=== PATIENT | male | born 1970 | race African-American/Black ===

== ENCOUNTER → 2016-07-05 | Day surgery (SDC) | payer MEDICARE ==
[~2016-07-05] MED LIST: AMLO2.5T PO; BYSTOLIC10 MG PO; CEPH500C PO; CYCL10TA2 PO; DOCU-27 PO; HYDR-2666 PO; HYDR-2679 PO; HYDR-2762 PO; HYDR-971 PO; IBUP-1060 PO; LIDOCAINE 1%/EPI 1:200,000 30 ML VIAL. INJ ONE; LIDOCAINE 1%/EPI 1:200,000 30 ML VIAL. ONE; LISI10TA2 PO; LISI1TAB3 PO; LISI2.5T PO; LORA0.5T96 PO; METF10002 PO; METF500T4 PO; OXYC10TA PO; OXYC30TA21 PO; PANT40TA5 PO; POLY17PO5 PO; Polyethylene Glycol 3350 PO; SENN-22 PO; SERT50TA PO; SIMV20TA3 PO; SULF1TAB24 PO; TIZA4TAB PO; TRAM50TA PO; TRAZ150T55 PO
[2016-07-05 10:28] VITALS: BP 129/67
--- NOTE | 2016-07-05 11:37 | PDOC ---
BRIEF OPERATIVE NOTE Pre-Op Diagnosis skin lesion excision of 1 cm skin lesion local ebl 5 kristyn well dc home. NYDIA CHONG MD Jul 05, 2016 11:37
--- NOTE | 2016-07-05 13:46 | OP ---
DATE OF SURGERY: 07/05/2016 PREOPERATIVE DIAGNOSIS: Right inguinal skin lesion. POSTOPERATIVE DIAGNOSIS: Right inguinal skin lesion. PROCEDURE: Excision of 1 cm skin lesion from his right inguinal region. SURGEON: Nydia Chong M.D. ANESTHESIA: Local. ESTIMATED BLOOD LOSS: 5 mL. IV FLUIDS: None. INDICATIONS: The patient is a 46-year-old male with very painful skin lesion in his right groin that he would like to have excised. DESCRIPTION OF PROCEDURE: After informed consent was obtained, the patient was taken to the minor operating room and placed in supine position. He was prepped and draped in usual sterile fashion. Skin was injected with local anesthetic. Elliptical incision was made around this 1 cm lesion with a scalpel, the lesion was sent to pathology for examination. The incision was then closed with interrupted 4-0 Ethibond sutures and then a sterile bandage was placed. He tolerated the procedure well. There were no complications. He was then discharged to home in stable condition. NYDIA CHONG MD DR: DOREEN/jody JOB#: [id number] / [id number] Dr. Kirby Parson
--- NOTE | 2016-07-08 15:31 | PATHOLOGY ---
PATHOLOGY REPORT * * * * * * * * FINAL DIAGNOSIS: Skin, right groin skin lesion excision: - Verruca vulgaris. COMMENT: There is no evidence of malignancy. (DENISEM:; d/t: 07/08/16) REPORT ELECTRONICALLY SIGNED BY: Drew Forrest M.D. DATE/TIME: 07/08/2016 15:31 * * * * * * * * GROSS PATHOLOGY: Received in formalin labeled "Nacho Kim Pierre., R groin skin lesion," is a 1.3 x 0.8 x 0.6 cm ellipse of skin displaying a well-circumscribed, raised and white-banda to rosales-brown lesion which measures 1.1 x 0.7 x 0.3 cm. The margins are inked black. The specimen is sectioned into five pieces and entirely submitted in cassettes A1 and A2, with the tips placed in cassette A2. (CAA; 07/05/2016) INITIAL CPT CODE(S): A; 77807 Professional services performed [place] [facility] [place] [address] Technical services performed by [facility] at [address] [place] [address]. SPECIMEN(S) RECEIVED: A.Right groin skin lesion CLINICAL HISTORY: Right groin skin lesion PATIENT: LUZ SANFORDSAVANNA Marina SR /AGE: 12 1970 (Age: 46) PATIENT #: [id number] ALT CASE #: SPECIMEN COLLECTION DATE: 07/05/2016 SPECIMEN RECEIVED DATE: 07/05/2016 [facility] - [address] [place] [address] - PHONE: [phone] * * * END OF REPORT * * *
== END | disposition home or self-care (01) ==
LOC: SURG 10:11
PROVIDERS: ATTEND Surgery
DX: L98.8 Other specified disorders of the skin and subcutaneous tissue (principal); B07.9 Viral wart, unspecified; E78.00 Pure hypercholesterolemia, unspecified; I10 Essential (primary) hypertension; K21.9 Gastro-esophageal reflux disease without esophagitis; F41.9 Anxiety disorder, unspecified; E11.9 Type 2 diabetes mellitus without complications; Z72.89 Other problems related to lifestyle

== ENCOUNTER → 2016-10-24 | Outpatient (CLI) | payer MEDICARE ==
[2016-07-05 10:28] VITALS: BP 129/67
[~2016-10-24] MED LIST changes: +DOCU-109 PO; -DOCU-27 PO; -HYDR-2666 PO; +HYDR-2758 PO; -LIDOCAINE 1%/EPI 1:200,000 30 ML VIAL. INJ ONE; -LIDOCAINE 1%/EPI 1:200,000 30 ML VIAL. ONE; +METF-620 PO; -METF10002 PO; +POLY17PO29 PO; -POLY17PO5 PO; +TRAZ150T49 PO; -TRAZ150T55 PO
--- NOTE | 2016-10-24 13:04 | RAD ---
Indication chronic shortness of breath. Anticipated coming surgery. Protocol study. No prior plain film imaging of the chest is available. Note is made of a CT examination of the chest April 12, 2016. There is mild cardiomegaly. There is no gross congestive heart failure. There is no focal infiltrate. Significant pleural fluid is not seen. No pneumothorax is seen. Bony structures appear grossly intact. IMPRESSION: No acute or focal process. Mild cardiomegaly
== END | disposition home or self-care (01) ==
LOC: RAD 12:36
PROVIDERS: ATTEND Internal Medicine
DX: J44.9 Chronic obstructive pulmonary disease, unspecified (principal)
CPT/HCPCS: 71020

== ENCOUNTER → 2016-12-17 | Outpatient (CLI) | payer MEDICARE ==
[2016-07-05 10:28] VITALS: BP 129/67
[~2016-12-17] MED LIST changes: +OXYMETAZOLINE 0.05% NASAL SPRAY 30ML BOTTLE. NS ONE; +ZOLPIDEM 5 MG TABLET. PO ONE
--- NOTE | 2016-12-18 19:48 | SLEEP ---
DATE OF STUDY: 12/17/2016 DATE OF STUDY: 12/17/2016 ATTENDING PHYSICIAN: Dr. Paddy Jean REFERRING PHYSICIAN: Dr. Tomas Kirby The patient is 46 years old who weighs 326 pounds with the BMI of 44. The patient's Holland score was 18, suggesting severe subjective hypersomnia. A split night study was performed at [facility]. During the night study, patient spent 428 minutes in bed and slept for 240 minutes with the low sleep efficiency of 56%. Sleep latency was 9 minutes with absent REM sleep. Overall, sleep architecture showed increased stage I and stage II sleep, normal slow wave and absent REM sleep. During the initial diagnostic portion of the study, the patient slept for 158 minutes. During this time there were no obstructive or central apneas. There were 30 mixed apneas and 79 hypopneas. The patient's apnea-hypopnea index was 42 per hour with the supine index of 42 per hour and REM sleep was not seen. Review of nocturnal oximetry study revealed a mean oxygen saturation of 94% with the lowest of 80%. 56% of the time, oxygen saturation remained between 80% and 89%. EKG monitoring revealed sinus tachycardia with frequent PVCs seen. The average heart rate was 110 beats per minute. PLMS were seen at index of 9 per hour and 2 per hour caused EEG arousals. The patient met the criteria for CPAP initiation. It was started at 5 cm of water; however, patient was unable to tolerate the lower pressure. As the result, it was increased to 9 cm of water and at final pressure of 12 cm water, patient slept for 55 minutes. The patient had supine sleep throughout, but no REM sleep was observed. Apnea-hypopnea index was reduced to 2 per hour and oxygen saturation remained above 91%. The patient used a large-sized full face mask. IMPRESSION: 1. Severe sleep apnea-hypopnea syndrome at an apnea-hypopnea index of 42 per hour. 2. Nocturnal hypoxia secondary to obstructive sleep apnea and suspected obesity hypoventilation syndrome, but resolved with continuous positive airway pressure. 3. Mild periodic limb movements in sleep without any significant electroencephalogram arousals. This does not need to be treated. RECOMMENDATIONS: 1. CPAP at 12 cm water completely eliminated patient's sleep apnea and should be used on a nightly basis. 2. Follow up in 4-6 weeks to assess compliance with CPAP and to document clinical improvement. 3. Weight loss is strongly advised. 4. Avoid VP RESEARCH depressants. 5. Cautioned regarding driving until symptoms of sleep apnea resolve with the use of CPAP. 6. The patient had reduced sleep efficiency, probably related to sleep apnea. If patient's insomnia persists despite effective use of CPAP, then it should be further evaluated. LORI ROBERTS MD DR: FRANDY/jody JOB#: [id number] / [id number] PADDY Lau MD, GEORGE MD
== END | disposition home or self-care (01) ==
LOC: SLPLAB 18:44
PROVIDERS: ATTEND Internal Medicine Pulmonary Disease
DX: G47.33 Obstructive sleep apnea (adult) (pediatric) (principal)
CPT/HCPCS: 95810

== ENCOUNTER → 2017-02-25 | Day surgery (SDC) | payer MEDICARE ==
[~2017-02-25] MED LIST changes: -AMLO2.5T PO; -BYSTOLIC10 MG PO; -CEPH500C PO; -CYCL10TA2 PO; -DOCU-109 PO; -HYDR-2679 PO; -HYDR-2758 PO; -HYDR-2762 PO; -HYDR-971 PO; -IBUP-1060 PO; +LIDOCAINE 2% PF Vial for OR 5 ML VIAL.; -LISI10TA2 PO; -LISI1TAB3 PO; -LISI2.5T PO; -LORA0.5T96 PO; -METF-620 PO; -METF500T4 PO; -OXYC10TA PO; -OXYC30TA21 PO; -OXYMETAZOLINE 0.05% NASAL SPRAY 30ML BOTTLE. NS ONE; -PANT40TA5 PO; -POLY17PO29 PO; +PROPOFOL 40 ML IV; -Polyethylene Glycol 3350 PO; -SENN-22 PO; -SERT50TA PO; -SIMV20TA3 PO; -SULF1TAB24 PO; -TIZA4TAB PO; -TRAM50TA PO; -TRAZ150T49 PO; -ZOLPIDEM 5 MG TABLET. PO ONE
[2017-02-25] MEDS: IV RINGERS,LACTATED 1000ML 1,000 ML IV (09:39)
== END | disposition home or self-care (01) ==
LOC: ENDOS 09:07
DX: K26.9 Duodenal ulcer, unspecified as acute or chronic, without hemorrhage or perforation (principal); K21.0 Gastro-esophageal reflux disease with esophagitis; Z87.11 Personal history of peptic ulcer disease; E78.00 Pure hypercholesterolemia, unspecified; I10 Essential (primary) hypertension; J44.9 Chronic obstructive pulmonary disease, unspecified; F17.200 Nicotine dependence, unspecified, uncomplicated; E11.9 Type 2 diabetes mellitus without complications; F41.9 Anxiety disorder, unspecified; Z72.89 Other problems related to lifestyle; Z87.39 Personal history of other diseases of the musculoskeletal system and connective tissue; Z86.39 Personal history of other endocrine, nutritional and metabolic disease; Z98.890 Other specified postprocedural states
CPT/HCPCS: 43239; 88305; 88342; J2704

== ENCOUNTER → 2017-10-29 | Outpatient (CLI) | payer MEDICARE, OTHER ==
[2017-10-29] MEDS: ZOLPIDEM 5 MG TABLET. PO (22:10)
[2017-10-29] MEDS: OXYMETAZOLINE 0.05% NASAL SPRAY 30ML BOTTLE. NS (23:30)
== END | disposition home or self-care (01) ==
LOC: SLPLAB 18:40
DX: G47.33 Obstructive sleep apnea (adult) (pediatric) (principal); G47.34 Idiopathic sleep related nonobstructive alveolar hypoventilation; M17.0 Bilateral primary osteoarthritis of knee; I11.0 Hypertensive heart disease with heart failure; I50.9 Heart failure, unspecified; E11.9 Type 2 diabetes mellitus without complications; E78.2 Mixed hyperlipidemia; E78.00 Pure hypercholesterolemia, unspecified; J44.1 Chronic obstructive pulmonary disease with (acute) exacerbation; K21.9 Gastro-esophageal reflux disease without esophagitis; I25.10 Atherosclerotic heart disease of native coronary artery without angina pectoris; Z87.11 Personal history of peptic ulcer disease; Z86.39 Personal history of other endocrine, nutritional and metabolic disease
CPT/HCPCS: 95810

== ENCOUNTER → 2018-01-14 | Outpatient (CLI) | payer MEDICARE ==
[2017-04-04 12:00] VITALS: BP 157/85
[~2018-01-14] MED LIST changes: +AMLO2.5T3 PO; +ASPI-612 PO; +BUPR300T3 PO; +BYSTOLIC10 MG PO; +CARV12.52 PO; +CARV6.252 PO; +CEPH500C PO; +CYCL10TA2 PO; +DEXL60CA2 PO; +DIPH25CA58 PO; +DOCU-109 PO; +FAMO20TA5 PO; +FURO80TA3 PO; +HYDR-2679 PO; +HYDR-2758 PO; +HYDR-2762 PO; +HYDR-971 PO; +IBUP-1060 PO; +INSU100I13 SQ; +INSU100I17 SQ; +INSU100I27 SQ; +INSU100V SQ; +INSU300I SQ; +IPRA3AMP29 NEB; +LEVO500T59 PO; -LIDOCAINE 2% PF Vial for OR 5 ML VIAL.; +LINA145C PO; +LISI-334 PO; +LISI10TA2 PO; +LISI1TAB3 PO; +LISI2.5T PO; +LORA0.5T96 PO; +METF1000 PO; +METF10007 PO; +METF500T16 PO; +MONT10TA6 PO; +Nicotine 21MG TD; +OXYC10TA PO; +OXYC30TA21 PO; +PANT40TA5 PO; +POLY17PO29 PO; +POLY255P PO; +PRAS10TA9 PO; +PRAV20TA2 PO; +PRAV40TA PO; +PRED20TA PO; -PROPOFOL 40 ML IV; +Polyethylene Glycol 3350 PO; +SENN-22 PO; +SERT50TA PO; +SIMV20TA3 PO; +SULF1TAB24 PO; +TIZA4TAB PO; +TRAM50TA PO; +TRAZ150T49 PO
--- NOTE | 2018-01-14 11:26 | CARD ---
MR#: [id number] Date of Study: 01/14/2018 Ordering Physician: TISH VALLADARES, Referring Physician: TISH VALLADARES, Tech: Rae Hernandez APPROVED REPORT EXAM: Two-dimensional and M-mode echocardiogram with Doppler and color Doppler. Other Information Quality : Good INDICATION Cardiomyopathy RISK FACTORS Hypertension Hyperlipidemia Diabetes Smoking 2D DIMENSIONS RVDd3.2 (2.9-3.5cm)Left Atrium(2D)6.0 (1.6-4.0cm) IVSd1.2 (0.7-1.1cm)Aortic Root(2D)3.3 (2.0-3.7cm) LVDd6.7 (3.9-5.9cm)LVOT Diameter2.7 (1.8-2.4cm) PWd1.2 (0.7-1.1cm)LVDs5.7 (2.5-4.0cm) FS (%) 15.1 %SV72.7 ml LVEF(%)31.1 (>50%) Aortic Valve AoV Peak Florentino.126.5cm/sAoV VTI21.3cm AO Peak GR.6.4mmHgLVOT Peak Florentino.77.7cm/s LVOT VTI 13.94cmAO Mean GR.4mmHg MIR (VMAX)2.43fr9HJC (VTI)3.85cm2 Tricuspid Valve TR P. [id number]/sTR Peak Gr.24mmHg LEFT VENTRICLE The Left Ventricle is moderately dilated. There is borderline concentric left ventricular hypertrophy . The systolic function is severely impaired. The Ejection Fraction is 25-30%. There is global hypoki nesis of the left ventricle. The anterior wall, septum are severely hypokinetic. The apex appears hyp erkinetic, but this may be due to off axis imaging. Tissue Doppler imaging reveals moderate left vent ricular diastolic dysfunction. RIGHT VENTRICLE The right ventricle is borderline dilated. There is normal right ventricular wall thickness. The righ t ventricular systolic function is normal. ATRIA The left atrium size is normal. The right atrium size is normal. The interatrial septum is intact wit h no evidence for an atrial septal defect or patent foramen ovale as noted on 2-D or Doppler imaging. AORTIC VALVE Not well visualized. Doppler and Color Flow revealed trace aortic regurgitation. There is no signific ant aortic valvular stenosis. MITRAL VALVE The mitral valve is normal in structure and function. There is no mitral valve stenosis. Doppler and Color-flow revealed trace mitral regurgitation. TRICUSPID VALVE The tricuspid valve is normal in structure and function. Doppler and Color Flow revealed trace tricus pid regurgitation. There is no tricuspid valve stenosis. PULMONIC VALVE The pulmonic valve is not well visualized. Doppler and Color Flow revealed trace pulmonic valvular re gurgitation. There is no pulmonic valvular stenosis. GREAT VESSELS The aortic root is normal in size. The IVC is dilated. PERICARDIAL EFFUSION There is no evidence of significant pericardial effusion. Critical Notification Critical Value: No <Conclusion> The systolic function is severely impaired. The Ejection Fraction is 25-30%. There is global hypokinesis of the left ventricle. The anterior wall, septum are severely hypokineti c. The apex appears hyperkinetic, but this may be due to off axis imaging. Tissue Doppler imaging reveals moderate left ventricular diastolic dysfunction. Signed by : Tish Valladares, Electronically Approved : 01/14/2018 11:25:26
== END | disposition home or self-care (01) ==
LOC: ECHO 09:46
PROVIDERS: ATTEND Internal Medicine Cardiovascular Disease
DX: I11.0 Hypertensive heart disease with heart failure (principal); I25.5 Ischemic cardiomyopathy; E78.5 Hyperlipidemia, unspecified; E11.9 Type 2 diabetes mellitus without complications; Z87.891 Personal history of nicotine dependence
CPT/HCPCS: 93306

== ENCOUNTER 2018-05-18 21:05 | Emergency (ER) | payer MEDICARE ==
[2018-01-19 08:37] VITALS: BP 125/62
[~2018-05-18 21:05] MED LIST changes: -AMLO2.5T3 PO; +AMLO2.5T5 PO; +CARV12.511 PO; -CARV12.52 PO; +CARV6.2511 PO; -CARV6.252 PO; -HYDR-2758 PO; +HYDR-2761 PO; -HYDR-2762 PO; +HYDR-2765 PO; +HYDR-3164 PO; -HYDR-971 PO; -LINA145C PO; +LINZESS145 MCG PO; -POLY255P PO; +POLY255P11 PO
[2018-05-18] MEDS ORDERED: IBUPROFEN 600 MG TABLET. PO ONE ×2 (22:02→22:24)
[2018-05-18] MEDS ORDERED: DOXYCYCLINE HYCLATE 100 MG TABLET PO ONE (22:02)
[2018-05-18] MEDS ORDERED: DOXYCYCLINE HYCLATE 100 MG TABLET ONE (22:24)
== END 2018-05-18 22:37 | disposition home or self-care (01) ==
LOC: MERGE 21:05 → ER 21:05 → UNMERGE 21:05 → ER 22:37
DX: L03.115 Cellulitis of right lower limb (principal); Z72.0 Tobacco use
CPT/HCPCS: 99283

== ENCOUNTER 2018-05-31 18:16 | Inpatient (IN) | payer MEDICARE ==
[~2018-05-31] VITALS: Ht 182.9 cm; Wt 206.1 kg
--- NOTE | 2018-05-31 20:05 | PHYS DOC ---
Past Medical History Past Medical History: COPD, Diabetes-Type II, High Cholesterol, Hypertension Additional Past Medical Histor: Rheumotoid Arthritis Past Surgical History: Appendectomy, Other Additional Past Surgical Histo: knee surgery x5, incision and drainage of abcess Alcohol Use: Occasionally Drug Use: None Adult General Chief Complaint Chief Complaint: CELLULITIS HPI HPI Patient is a 48 year old iddm htn copd anemia ibs 5 weeks ago kicked a table with his mckeon on his right leg. came in got augmentin gave him a rash, then took levaquin for ten days then ran out of that and then got worse again tried doxycyline did not help really now on bactrim for four days and feels like making no progress. redness on both legs symptoms moderate more swelling on the right Review of Systems Review of Systems Constitutional: Denies fever or chills [] Eyes: Denies change in visual acuity, redness, or eye pain [] HENT: Denies nasal congestion or sore throat [] Respiratory: Denies cough or shortness of breath [] Cardiovascular: No additional information not addressed in HPI [] GI: Denies abdominal pain, nausea, vomiting, bloody stools or diarrhea [] : Denies dysuria or hematuria [] Endocrine: Denies polyuria or polydipsia [] All other systems were reviewed and found to be within normal limits, except as documented in this note. Current Medications Current Medications Current Medications Medications (Trade) Dose Ordered Sig/Linden Start Time Stop Time Status Last Admin Dose Admin Albuterol/ Ipratropium (Duoneb) 3 ml 1X ONCE 05/31/18 21:15 05/31/18 21:17 DC 05/31/18 21:15 3 ML Fentanyl Citrate (Fentanyl 2ml Vial) 50 mcg 1X ONCE 05/31/18 20:45 05/31/18 20:46 DC 05/31/18 21:04 50 MCG Furosemide (Lasix) 60 mg 1X ONCE 05/31/18 20:45 05/31/18 20:46 DC 05/31/18 21:06 60 MG Vancomycin HCl (Vanco Per Pharmacy) 1 each PRN DAILY PRN 05/31/18 20:45 UNV Vancomycin HCl 2 gm/Sodium Chloride 500 ml @ 250 mls/hr 1X ONCE 05/31/18 21:00 05/31/18 22:59 DC 05/31/18 20:58 250 MLS/HR Allergies Allergies Allergies Coded Allergies Type Severity Reaction Last Updated Verified amoxicillin Allergy Unknown 05/31/18 Yes clavulanic acid Allergy Unknown 05/31/18 Yes Physical Exam Physical Exam Constitutional: Well developed, well nourished, no acute distress, non-toxic appearance. [] HENT: Normocephalic, atraumatic, bilateral external ears normal, oropharynx moist, no oral exudates, nose normal. [] Eyes: PERRLA, EOMI, conjunctiva normal, no discharge. [] Neck: Normal range of motion, no tenderness, supple, no stridor. [] Cardiovascular:Heart rate regular rhythm, no murmur DIFFICULT EXAM DUE TO HABITUS Lungs & Thorax: FAINT CRACKLES B/L LUNG BASES Abdomen: Bowel sounds normal, soft, no tenderness, no masses, no pulsatile masses. [] Skin: Warm, dry, no erythema, no rash. [] Back: No tenderness, no CVA tenderness. [] Extremities: erythema noted to lower extremities, and swelling B/L WITH WOODY EDEMA MOSTLY SYMMETRIC Neurologic: Alert and oriented X 3, normal motor function, normal sensory function, no focal deficits noted. [] Psychologic: Affect normal, judgement normal, mood normal. [] Current Patient Data Vital Signs Vital Signs Date Time Temp Pulse Resp B/P (MAP) Pulse Ox O2 Delivery O2 Flow Rate FiO2 05/31/18 21:30 100 20 145/74 (97) 92 Room Air 05/31/18 20:30 91.0 05/31/18 19:20 97.9 97.9 Lab Values Laboratory Tests Test 05/31/18 20:40 White Blood Count 9.2 x10^3/uL (4.0-11.0) Red Blood Count 4.82 x10^6/uL (4.30-5.70) Hemoglobin 11.9 g/dL (13.0-17.5) L Hematocrit 37.5 % (39.0-53.0) L Mean Corpuscular Volume 78 fL (79-100) L Mean Corpuscular Hemoglobin 25 pg (25-35) Mean Corpuscular Hemoglobin Concent 32 g/dL (31-37) Red Cell Distribution Width 19.6 % (11.5-14.5) H Platelet Count 233 x10^3/uL (140-400) Neutrophils (%) (Auto) 71 % (31-73) Lymphocytes (%) (Auto) 15 % (24-48) L Monocytes (%) (Auto) 9 % (0-9) Eosinophils (%) (Auto) 5 % (0-3) H Basophils (%) (Auto) 1 % (0-3) Neutrophils # (Auto) 6.5 x10^3uL (1.8-7.7) Lymphocytes # (Auto) 1.3 x10^3/uL (1.0-4.8) Monocytes # (Auto) 0.8 x10^3/uL (0.0-1.1) Eosinophils # (Auto) 0.4 x10^3/uL (0.0-0.7) Basophils # (Auto) 0.1 x10^3/uL (0.0-0.2) Prothrombin Time 14.0 SEC (11.7-14.0) Prothrombin Time INR 1.1 (0.8-1.1) Sodium Level 134 mmol/L (136-145) L Potassium Level 4.5 mmol/L (3.5-5.1) Chloride Level 99 mmol/L (98-107) Carbon Dioxide Level 25 mmol/L (21-32) Anion Gap 10 (6-14) Blood Urea Nitrogen 16 mg/dL (8-26) Creatinine 0.8 mg/dL (0.7-1.3) Estimated GFR (Cockcroft-Gault) 125.9 BUN/Creatinine Ratio 20 (6-20) Glucose Level 366 mg/dL (70-99) H Lactic Acid Level 1.9 mmol/L (0.4-2.0) Calcium Level 9.0 mg/dL (8.5-10.1) Total Bilirubin 0.6 mg/dL (0.2-1.0) Aspartate Amino Transferase (AST) 28 U/L (15-37) Alanine Aminotransferase (ALT) 22 U/L (16-63) Alkaline Phosphatase 155 U/L (46-116) H Troponin I Quantitative < 0.017 ng/mL (0.000-0.055) AO-Xfj-H-Type Natriuretic Peptide 588 pg/mL (0-124) H Total Protein 8.9 g/dL (6.4-8.2) H Albumin 3.2 g/dL (3.4-5.0) L Albumin/Globulin Ratio 0.6 (1.0-1.7) L Laboratory Tests 05/31/18 20:40 Laboratory Tests 05/31/18 20:40 EKG EKG [] Interpretation Time: Sinus tachycardia with rate of 102. No ST segment changes Radiology/Procedures Radiology/Procedures [] Impressions: CXR MILD CONGESTION MY READ. Course & Med Decision Making Course & Med Decision Making Pertinent Labs and Imaging studies reviewed. (See chart for details) []48 yo m cellulitis failed outpt thearpy. also some evidence of fulid overload clinically lower ext edema and mild dyspnea with pulm edema seen on cxr. vanco ordered, lasix. d/w nura asks for admit to [facility], with consult to id. Saenz Disclaimer Dragon Disclaimer This electronic medical record was generated, in whole or in part, using a voice recognition dictation system. Departure Departure Impression: Primary Impression: Cellulitis Additional Impression: Lower extremity edema Disposition: ADMITTED INPATIENT Admitting Physician: Kirby Jean Condition: STABLE Referrals: KIRBY JEAN MD (PCP) Problem Qualifiers VIVIENNE MARKS MD May 31, 2018 20:05
[2018-05-31] MEDS ORDERED: FUROSEMIDE 100 MG/10 ML VIAL. IVP ONE (20:45)
[2018-05-31] MEDS ORDERED: fentaNYL PF VIAL 100 MCG/2 ML VIAL IV ONE (20:45)
[2018-05-31 20:58] LABS: BASO # 0.1 x10^3/uL (0.0-0.2); BASO % 1 % (0-3); EOS # 0.4 x10^3/uL (0.0-0.7); EOS % 5 % (0-3); HEMATOCRIT 37.5 % (39.0-53.0); HEMOGLOBIN 11.9 g/dL (13.0-17.5); LYMPH # 1.3 x10^3/uL (1.0-4.8); LYMPH % 15 % (24-48); MEAN CORPUSCULAR HEMOGLOBIN 25 pg (25-35); MEAN CORPUSCULAR HGB CONC 32 g/dL (31-37); MEAN CORPUSCULAR VOLUME 78 fL (79-100); MONO # 0.8 x10^3/uL (0.0-1.1); MONO % 9 % (0-9); NEUT # 6.5 x10^3uL (1.8-7.7); NEUT % 71 % (31-73); PLATELET COUNT 233 x10^3/uL (140-400); RED BLOOD COUNT 4.82 x10^6/uL (4.30-5.70); RED CELL DISTRIBUTION WIDTH 19.6 % (11.5-14.5); WHITE BLOOD COUNT 9.2 x10^3/uL (4.0-11.0)
[2018-05-31] MEDS ORDERED: VANCOMYCIN 2 GM in IV NORMAL SALINE 500ML BAG 500 ML IV ONE (21:00)
[2018-05-31 21:08] LABS: CREATININE 0.8 mg/dL (0.7-1.3); GFR 125.9; POTASSIUM 4.5 mmol/L (3.5-5.1)
[2018-05-31 21:15] LABS: ALBUMIN 3.2 g/dL (3.4-5.0); ALBUMIN/GLOBULIN RATIO 0.6 (1.0-1.7); TOTAL BILIRUBIN 0.6 mg/dL (0.2-1.0); TOTAL PROTEIN 8.9 g/dL (6.4-8.2)
[2018-05-31] MEDS ORDERED: IPRATRPIUM/ALBUTEROL 0.5/2.5MG 3 ML NEBU. NEB ONE (21:15)
--- NOTE | 2018-05-31 22:04 | RAD ---
AP chest 05/31/2018 CLINICAL INDICATION: Shortness of breath. COMPARISON: Chest 01/15/2018 FINDINGS: Moderate generalized large amount of the cardiac silhouette with pulmonary venous congestion and diffuse interstitial opacities with mild bilateral airspace opacities. No definite pleural effusion, though limited due to body habitus and underpenetration. No definite pneumothorax, though also limited. IMPRESSION: Findings most suggestive of CHF or volume overload with cardiomegaly and pulmonary edema. Electronically signed by: Luis Caicedo MD (05/31/2018 10:01 PM) [facility]
[2018-05-31] MEDS ORDERED: INSU100I13 SQ (22:54)
[2018-05-31 23:00] VITALS: BP 142/89
[2018-05-31] MEDS ORDERED: GLYC10.7 IH (23:05)
[2018-05-31] MEDS ORDERED: INSULIN LISPRO 300 UNITS/3 ML INSULN.PEN. SQ ONE (23:30)
[2018-05-31] MEDS ORDERED: DEXTROSE 50% 25 GM / 50ML DISP.SYRIN. IV PRN (23:30)
[2018-05-31] MEDS ORDERED: INSULIN GLARGINE 300 UNITS/3 ML INSULN.PEN. SQ SCH (23:30)
[2018-05-31] MEDS: NICOTINE 14MG PATCH. TD PRN (23:42)
[2018-05-31] MEDS: HYDROcodone/APAP 5/325MG 1 TAB TABLET PO PRN (23:42)
[2018-06-01 00:38] LABS: BILIRUBIN,URINE NEGATIVE (NEG); CLARITY,URINE CLEAR; COLOR,URINE YELLOW; NITRITE,URINE NEGATIVE (NEG); PROTEIN,URINE NEGATIVE (NEG-TRACE)
[2018-06-01 00:42] LABS: BACTERIA,URINE 0 /HPF (0-FEW); RBC,URINE 0 /HPF (0-2); SQUAMOUS EPITHELIAL CELL,UR FEW /LPF; WBC,URINE 0 /HPF (0-4)
[2018-06-01 03:00] VITALS: BP 116/50
[2018-06-01] MEDS ORDERED: VANCOMYCIN 2 GM in IV NORMAL SALINE 500ML BAG 500 ML IV ONE (05:00)
[2018-06-01 07:00] VITALS: BP 138/60
--- NOTE | 2018-06-01 07:14 | EKG ---
[facility] [address] [place] [address] Test Date: 2018-05-31 Test Time: 20:56:39 Pat Name: GILBERTO BREWER Department: Room: 526 1 Gender: M [employer]ant Systems: : 1970 Requested By: VIVIENNE MARKS Order Number: [id number] Reading MD: Segundo Jimenez Measurements Intervals [place] Rate: 102 P: -102 NC: 116 QRS: -31 QRSD: 108 T: 64 QT: 364 QTc: 479 Interpretive Statements SINUS RHYTHM LEFT ATRIAL ABNORMALITY ABNORMAL LEFT AXIS DEVIATION LEFT ANTERIOR FASCICULAR BLOCK T ABNORMALITY IN HIGH LATERAL LEADS ABNORMAL ECG Electronically Signed On 06-09-2018 10:43:05 MANAGER DENTAL by Segundo Jimenez
[2018-06-01] MEDS: diphenhydrAMINE HCL 25 MG CAPSULE PO PRN ×2 (07:19→17:37)
[2018-06-01] MEDS: HYDROcodone/APAP 5/325MG 1 TAB TABLET PO PRN (07:19)
--- NOTE | 2018-06-01 08:00 | NUR ---
When questioned, patient relates that pain is better when he is sitting on side of bed with legs down.
[2018-06-01] MEDS: INSULIN LISPRO 300 UNITS/3 ML INSULN.PEN. SQ SCH ×5 (08:45→17:48)
[2018-06-01] MEDS ORDERED: NON FORMULARY ITEM (Linaclotide (Linzess) 145 MCG) PO SCH (09:30)
--- NOTE | 2018-06-01 09:56 | PDOC ---
Infectious Disease Note Vital Sign Vital Signs Vital Signs Date Time Temp Pulse Resp B/P (MAP) Pulse Ox O2 Delivery O2 Flow Rate FiO2 06/01/18 07:19 18 Room Air 06/01/18 07:00 97.8 91 138/60 (86) 97 2.0 97.8 Labs Lab Laboratory Tests Test 05/31/18 20:40 05/31/18 23:03 06/01/18 00:25 06/01/18 07:54 White Blood Count 9.2 x10^3/uL (4.0-11.0) Red Blood Count 4.82 x10^6/uL (4.30-5.70) Hemoglobin 11.9 g/dL (13.0-17.5) Hematocrit 37.5 % (39.0-53.0) Mean Corpuscular Volume 78 fL (79-100) Mean Corpuscular Hemoglobin 25 pg (25-35) Mean Corpuscular Hemoglobin Concent 32 g/dL (31-37) Red Cell Distribution Width 19.6 % (11.5-14.5) Platelet Count 233 x10^3/uL (140-400) Neutrophils (%) (Auto) 71 % (31-73) Lymphocytes (%) (Auto) 15 % (24-48) Monocytes (%) (Auto) 9 % (0-9) Eosinophils (%) (Auto) 5 % (0-3) Basophils (%) (Auto) 1 % (0-3) Neutrophils # (Auto) 6.5 x10^3uL (1.8-7.7) Lymphocytes # (Auto) 1.3 x10^3/uL (1.0-4.8) Monocytes # (Auto) 0.8 x10^3/uL (0.0-1.1) Eosinophils # (Auto) 0.4 x10^3/uL (0.0-0.7) Basophils # (Auto) 0.1 x10^3/uL (0.0-0.2) Prothrombin Time 14.0 SEC (11.7-14.0) Prothromb Time International Ratio 1.1 (0.8-1.1) Sodium Level 134 mmol/L (136-145) Potassium Level 4.5 mmol/L (3.5-5.1) Chloride Level 99 mmol/L (98-107) Carbon Dioxide Level 25 mmol/L (21-32) Anion Gap 10 (6-14) Blood Urea Nitrogen 16 mg/dL (8-26) Creatinine 0.8 mg/dL (0.7-1.3) Estimated GFR (Cockcroft-Gault) 125.9 BUN/Creatinine Ratio 20 (6-20) Glucose Level 366 mg/dL (70-99) Lactic Acid Level 1.9 mmol/L (0.4-2.0) Calcium Level 9.0 mg/dL (8.5-10.1) Total Bilirubin 0.6 mg/dL (0.2-1.0) Aspartate Amino Transf (AST/SGOT) 28 U/L (15-37) Alanine Aminotransferase (ALT/SGPT) 22 U/L (16-63) Alkaline Phosphatase 155 U/L (46-116) Troponin I Quantitative < 0.017 ng/mL (0.000-0.055) EW-Ecb-N-Type Natriuretic Peptide 588 pg/mL (0-124) Total Protein 8.9 g/dL (6.4-8.2) Albumin 3.2 g/dL (3.4-5.0) Albumin/Globulin Ratio 0.6 (1.0-1.7) Glucose (Fingerstick) 353 mg/dL (70-99) 336 mg/dL (70-99) Urine Collection Type Unknown Urine Color Yellow Urine Clarity Clear Urine pH 6.0 Urine Specific [place] 1.010 Urine Protein Negative mg/dL (NEG-TRACE) Urine Glucose (UA) 500 mg/dL (NEG) Urine Ketones (Stick) Negative mg/dL (NEG) Urine Blood Negative (NEG) Urine Nitrite Negative (NEG) Urine Bilirubin Negative (NEG) Urine Urobilinogen Dipstick 1.0 mg/dL (0.2 mg/dL) Urine Leukocyte Esterase Negative (NEG) Urine RBC 0 /HPF (0-2) Urine WBC 0 /HPF (0-4) Urine Squamous Epithelial Cells Few /LPF Urine Bacteria 0 /HPF (0-FEW) Urine Mucus Slight /LPF Objective Assessment Rt leg injury with cellulitis Left leg swelling and pain rule out DVT Morbid obesity DM HTN COPD Plan Plan of Care vanc leg elevation ultrasound to rule out DVT CUCO TRENT MD Jun 01, 2018 09:56
--- NOTE | 2018-06-01 10:50 | PDOC ---
Provider Note Provider Note Patient seen. History and Physical dictated. See dictation#[id number] PADDY LINCOLN MD Jun 01, 2018 10:50
[2018-06-01 11:00] VITALS: BP 140/80
[2018-06-01] MEDS ORDERED: PANTOPRAZOLE 40 MG TABLET.DR. PO SCH (11:00)
[2018-06-01] MEDS: FUROSEMIDE 80 MG TABLET. PO SCH (11:04)
[2018-06-01] MEDS: ASPIRIN ENTERIC COATED 81 MG TABLET.DR. PO SCH (11:04)
[2018-06-01] MEDS: buPROPion XL 150 MG TAB.ER.24H. PO SCH (11:05)
[2018-06-01] MEDS: PANTOPRAZOLE 40 MG TABLET.DR. PO SCH (11:05)
[2018-06-01] MEDS: NICOTINE 14MG PATCH. TD PRN (11:10)
[2018-06-01] MEDS: LISINOPRIL 20 MG TABLET PO SCH (11:11)
[2018-06-01] MEDS: CARVEDILOL 6.25 MG TABLET. PO SCH ×2 (11:12→17:36)
--- NOTE | 2018-06-01 11:13 | HP ---
ADMIT DATE: 05/31/2018 ADMITTING PHYSICIAN: Paddy Lincoln MD HISTORY OF PRESENT ILLNESS: This 48-year-old male who has been treated in the office recently on several occasions for cellulitis of the right lower extremity with chronic edema of both lower extremities was initially treated with Augmentin that caused rash and subsequently he took Levaquin for 10 days and then he ran out of it and then he got worse again and then started doxycycline that did not help and now is on Bactrim-DS for 4 days and felt that he was not improving, so he came to the Emergency Room. His blood sugars are also extremely high here and he admits that he did not take any insulin for 4 days because he could not afford it. REVIEW OF SYSTEMS: Because of the worsening cellulitis of the lower extremity and edema of the lower extremities, the patient has been admitted for further evaluation and management. The patient complains of bilateral lower extremity pain. He denies any dyspnea, chest pains, palpitations, dizziness, fever or chills. Denies any diarrhea. Other systems reviewed and are negative. The patient denies any vomiting. He has a history of chronic constipation. PAST MEDICAL HISTORY: The patient was last admitted here on 01/15/2018 because of pneumonia. The patient has a history of COPD, morbid obesity, obstructive sleep apnea, hypertension, hyperlipidemia, history of acute eosinophilic pneumonia. The patient also has heart failure, both diastolic and systolic, with ejection fraction of 15-20%, diabetes mellitus type 2, not controlled with history of steroid-induced hyperglycemia as well as noncompliance and insulin-dependent. Hypertension. Primary osteoarthritis of both knees, slow transit constipation, right lower lung pulmonary nodule, gastroesophageal reflux disease with esophagitis. Hyperlipidemia, history of noncompliance, anemia of chronic disease, 2-vessel coronary artery disease, status post drug-eluting stent of the right coronary artery on 04/03/2017. The patient needs CPAP at 12 cm of water pressure, but does not have a history of compliance with it. He also has a history of mixed hyperlipidemia. PAST SURGICAL HISTORY: The patient has had arthroscopic knee surgery of the right knee, cyst removed from the right groin. The patient also has had appendectomy. 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 No history of alcoholism. FAMILY HISTORY: Reviewed and noncontributory. ALLERGIES: THE PATIENT IS ALLERGIC TO AUGMENTIN. MEDICATIONS: I have reviewed and reconciled the medications. The patient was not taking insulin for 4 days prior to admission. PHYSICAL EXAMINATION: GENERAL: The patient is a middle-aged male who is alert, oriented x 3, morbidly obese, and not in acute distress. VITAL SIGNS: Temperature 97.9, pulse 105 per minute, respirations 20 per minute, blood pressure was 178/76 on admission, now it is 138/60 mmHg. EYES: Pupils reacting to light. Conjunctivae pale pink. Sclerae white. HENT: Unremarkable. NECK: Supple. JVP normal. No thyromegaly. Trachea midline. LUNGS: Decreased breath sounds at bases. CARDIOVASCULAR: S1, S2 regular. ABDOMEN: Soft, nontender, bowel sounds present. EXTREMITIES: Edema 3+ bilaterally with redness of both lower extremities, but worse on the right side. The patient also has some tenderness and some nodular swelling on the right thigh posteriorly. The patient also has some left calf tenderness. CENTRAL NERVOUS SYSTEM: Alert and oriented. No acute changes. LABORATORY FINDINGS: WBC count 9.2, hemoglobin 11.9, glucose 353 and 336. Lactic acid 1.9. BNP 588. Cardiac enzymes normal. Sodium 134, potassium 4.5, albumin 3.2. INR 1.1. Urinalysis negative. IMAGING FINDINGS: Chest x-ray findings most suggestive of CHF or volume overload with cardiomegaly and pulmonary edema. IMPRESSION: 1. Cellulitis of both lower extremities, worse on the right side. 2. Chronic edema of both lower extremities. 3. Possible deep venous thrombosis of both lower extremities. 4. 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 5. Morbid obesity. 6. Obstructive sleep apnea, CPAP noncompliant. 7. Diabetes mellitus type 2, insulin dependent, noncompliant. 8. Chronic obstructive pulmonary disease. 9. Slow transit constipation. 10. Osteoarthritis of both knees. 11. History of right lower lung nodule. 12. Gastroesophageal reflux disease with esophagitis. 13. Mixed hyperlipidemia. 14. Noncompliance. 15. Anemia of chronic disease. 16. Coronary artery disease with 2-vessel coronary artery disease, status post drug-eluting stent of the right coronary artery on 04/03/2017. PLAN: I will obtain venous Doppler of both lower extremities, consulted Dr. Rayray Torres for Infectious Disease evaluation and management. I also discussed the case with him. He has been started on IV vancomycin. I will also consult Dr. Jimenez for Cardiology evaluation and management. For details, please refer to the orders. Prognosis of this patient is poor due to his multiple medical problems. PADDY LINCOLN MD DR: DEJAN/jody JOB#: [id number] / [id number]
[2018-06-01] MEDS: INSULIN GLARGINE 300 UNITS/3 ML INSULN.PEN. SQ SCH ×2 (11:57→21:06)
--- NOTE | 2018-06-01 12:04 | RAD ---
Examination: Bilateral Lower Extremity Venous Doppler Ultrasound History: Bilateral lower extremity swelling Comparison: None Procedure: Bundy scale, color flow 2D and spectal waveform analysis images are obtained with and without compression in the area of the common femoral vein, superficial femoral vein - femoral vein junction, main femoral vein (superficial femoral vein) and popliteal vein. Veins of the proximal calf are also imaged. Findings: There is normal duplex flow, color flow and compressibility of all visualized vein segments. No evidence of deep venous thrombus is present. Examination limited due to patient body habitus. Impression: No evidence of DVT in the visualized bilateral lower extremity venous system. Electronically signed by: Mack Wild MD (06/01/2018 12:02 PM) [email or web address]
--- NOTE | 2018-06-01 12:10 | NUR ---
Encouraging patient to drink different fluids (ie diet soda) versus juices ("I don't like water, it ain't gonna happen") Had sorbet prior to most recent blood glucose check.- (Patient had mentioned having sorbet to family (cup on table), while nurse in room and that it didn't have sugar in it) Nurse spoke with patient re possibly making other choices, as sorbet does have sugar.
[2018-06-01] MEDS: VANCOMYCIN PER PHARMACY MC PRN ×2 (12:13→21:52)
[2018-06-01] MEDS: IPRATRPIUM/ALBUTEROL 0.5/2.5MG 3 ML NEBU. NEB SCH ×3 (12:13→20:17)
--- NOTE | 2018-06-01 12:40 | PDOC2 ---
JUANY PETERS OCCUPATIONAL THERAPY ASSISTANT 06/01/18 1240: CARDIAC CONSULT DATE OF CONSULT Date of Consult DATE: 06/01/18 TIME: 12:32 REASON FOR CONSULT Reason for Consult: CHF REFERRING PHYSICIAN Referring Physician: Dr. Jean SOURCE Source: Chart review, Patient HISTORY OF PRESENT ILLNESS HISTORY OF PRESENT ILLNESS This is a 48 yo male who presented secondary to worsening cellulitis with failed outpatient treatment. Has also had some mild shortness of breath for the last week. CXR notable for pulmonary edema, which prompted this consult. Denies any chest pain, palpitations, dizziness, diaphoresis, or nausea/vomiting. Has has LE edema for the last month. Reports compliance with medications. PAST MEDICAL HISTORY Past Medical History Cardiovascular: CAD, CHF (ICM), HTN, Hyperlipidemia Pulmonary: COPD, Other (KATIUSKA) GI: Peptic Ulcer disease Psych: Anxiety Musculoskeletal: Osteoarthritis, Other (morbid obesity) Rheumatologic: No pertinent hx Infectious disease: No pertinent hx ENT: Allergic Rhinitis Renal/: No pertinent hx Endocrine: Diabetes (2) Dermatology: No pertinent hx PAST SURGICAL HISTORY Past Surgical History Appendectomy, Arthroscopy (bilateral knee), Other (PCI/stent) FAMILY HISTORY Family History: Hypertension SOCIAL HISTORY Social History Smoke: <1 pack per day (>30 yrs) ALCOHOL: none Drugs: None Lives: with Family CURRENT MEDICATIONS CURRENT MEDICATIONS Current Medications Medications (Trade) Dose Ordered Sig/Linden Route PRN Reason Start Time Stop Time Status Last Admin Dose Admin Vancomycin HCl (Vanco Per Pharmacy) 1 each PRN DAILY PRN MC SEE COMMENTS 05/31/18 20:45 06/01/18 12:13 Fentanyl Citrate (Fentanyl 2ml Vial) 50 mcg 1X ONCE IV 05/31/18 20:45 05/31/18 20:46 DC 05/31/18 21:04 Furosemide (Lasix) 60 mg 1X ONCE IVP 05/31/18 20:45 05/31/18 20:46 DC 05/31/18 21:06 Vancomycin HCl 2 gm/Sodium Chloride 500 ml @ 250 mls/hr 1X ONCE IV 05/31/18 21:00 05/31/18 22:59 DC 05/31/18 20:58 Albuterol/ Ipratropium (Duoneb) 3 ml 1X ONCE NEB 05/31/18 21:15 05/31/18 21:17 DC 05/31/18 21:15 Vancomycin HCl 2 gm/Sodium Chloride 500 ml @ 250 mls/hr 1X ONCE IV 06/01/18 05:00 06/01/18 06:59 DC 06/01/18 05:09 Nicotine (Nicoderm Cq 14mg) 1 patch PRN DAILY PRN TD SMOKING CESSATION 05/31/18 23:15 06/01/18 11:10 Acetaminophen/ Hydrocodone Bitart (Lortab 5/325) 1 tab PRN Q6HRS PRN PO PAIN 05/31/18 23:15 06/01/18 07:19 Insulin Human Lispro (HumaLOG) 10 units 1X ONCE SQ 05/31/18 23:30 05/31/18 23:31 DC 05/31/18 23:49 Insulin Glargine (Lantus) 80 units QHS SQ 05/31/18 23:30 06/01/18 09:34 DC 05/31/18 23:50 Insulin Human Lispro (HumaLOG) 0-7 UNITS TIDWMEALS SQ 06/01/18 08:00 06/01/18 08:45 Diphenhydramine HCl (Benadryl) 25 mg PRN QID PRN PO ITCHING 06/01/18 06:45 06/01/18 07:19 Aspirin (Ecotrin) 81 mg DAILYWBKFT PO 06/01/18 10:00 06/01/18 11:04 Carvedilol (Coreg) 6.25 mg BIDWMEALS PO 06/01/18 10:30 06/01/18 11:12 Furosemide (Lasix) 80 mg DAILY PO 06/01/18 10:30 06/01/18 11:04 Insulin Glargine (Lantus) 80 units BID SQ 06/01/18 10:30 06/01/18 11:57 Albuterol/ Ipratropium (Duoneb) 3 ml RTQID NEB 06/01/18 12:00 06/01/18 12:13 Lisinopril (Prinivil) 20 mg DAILY PO 06/01/18 10:30 06/01/18 11:11 Bupropion HCl (Wellbutrin Xl) 300 mg DAILY PO 06/01/18 10:30 06/01/18 11:05 Pantoprazole Sodium (Protonix) 40 mg DAILYAC PO 06/01/18 11:00 06/01/18 11:05 ALLERGIES ALLERGIES: Coded Allergies: amoxicillin (Verified Allergy, Unknown, 05/31/18) clavulanic acid (Verified Allergy, Unknown, 05/31/18) ROS Review of System 14 point ROS conducted with pertinent positives noted above in HPI PHYSICAL EXAM PHYSICAL EXAM General: Alert, Oriented X3, Cooperative, mild distress HEENT: Atraumatic, Mucous membr. moist/pink Lungs: Other (diminished bases) Heart: Regular rate (SR), Other (distant heart sounds) Extremities: No cyanosis, Other (1-2+ bilateral LE pitting edema) Skin: No breakdown, No significant lesion Neuro: Normal speech, Sensation intact Psych/Mental Status: Mental status NL, Mood NL MUSCULOSKELETAL: Osteoarthritic changes both hands VITALS VITALS Vital Signs Date Time Temp Pulse Resp B/P (MAP) Pulse Ox O2 Delivery O2 Flow Rate FiO2 06/01/18 12:14 93 Room Air 06/01/18 11:12 99 149/85 06/01/18 11:00 97.8 20 97.8 06/01/18 07:00 2.0 LABS Lab: Laboratory Tests Test 05/31/18 20:40 05/31/18 23:03 06/01/18 00:25 06/01/18 07:54 White Blood Count 9.2 x10^3/uL (4.0-11.0) Red Blood Count 4.82 x10^6/uL (4.30-5.70) Hemoglobin 11.9 g/dL (13.0-17.5) Hematocrit 37.5 % (39.0-53.0) Mean Corpuscular Volume 78 fL (79-100) Mean Corpuscular Hemoglobin 25 pg (25-35) Mean Corpuscular Hemoglobin Concent 32 g/dL (31-37) Red Cell Distribution Width 19.6 % (11.5-14.5) Platelet Count 233 x10^3/uL (140-400) Neutrophils (%) (Auto) 71 % (31-73) Lymphocytes (%) (Auto) 15 % (24-48) Monocytes (%) (Auto) 9 % (0-9) Eosinophils (%) (Auto) 5 % (0-3) Basophils (%) (Auto) 1 % (0-3) Neutrophils # (Auto) 6.5 x10^3uL (1.8-7.7) Lymphocytes # (Auto) 1.3 x10^3/uL (1.0-4.8) Monocytes # (Auto) 0.8 x10^3/uL (0.0-1.1) Eosinophils # (Auto) 0.4 x10^3/uL (0.0-0.7) Basophils # (Auto) 0.1 x10^3/uL (0.0-0.2) Prothrombin Time 14.0 SEC (11.7-14.0) Prothromb Time International Ratio 1.1 (0.8-1.1) Sodium Level 134 mmol/L (136-145) Potassium Level 4.5 mmol/L (3.5-5.1) Chloride Level 99 mmol/L (98-107) Carbon Dioxide Level 25 mmol/L (21-32) Anion Gap 10 (6-14) Blood Urea Nitrogen 16 mg/dL (8-26) Creatinine 0.8 mg/dL (0.7-1.3) Estimated GFR (Cockcroft-Gault) 125.9 BUN/Creatinine Ratio 20 (6-20) Glucose Level 366 mg/dL (70-99) Lactic Acid Level 1.9 mmol/L (0.4-2.0) Calcium Level 9.0 mg/dL (8.5-10.1) Total Bilirubin 0.6 mg/dL (0.2-1.0) Aspartate Amino Transf (AST/SGOT) 28 U/L (15-37) Alanine Aminotransferase (ALT/SGPT) 22 U/L (16-63) Alkaline Phosphatase 155 U/L (46-116) Troponin I Quantitative < 0.017 ng/mL (0.000-0.055) OO-Jec-G-Type Natriuretic Peptide 588 pg/mL (0-124) Total Protein 8.9 g/dL (6.4-8.2) Albumin 3.2 g/dL (3.4-5.0) Albumin/Globulin Ratio 0.6 (1.0-1.7) Glucose (Fingerstick) 353 mg/dL (70-99) 336 mg/dL (70-99) Urine Collection Type Unknown Urine Color Yellow Urine Clarity Clear Urine pH 6.0 Urine Specific [place] 1.010 Urine Protein Negative mg/dL (NEG-TRACE) Urine Glucose (UA) 500 mg/dL (NEG) Urine Ketones (Stick) Negative mg/dL (NEG) Urine Blood Negative (NEG) Urine Nitrite Negative (NEG) Urine Bilirubin Negative (NEG) Urine Urobilinogen Dipstick 1.0 mg/dL (0.2 mg/dL) Urine Leukocyte Esterase Negative (NEG) Urine RBC 0 /HPF (0-2) Urine WBC 0 /HPF (0-4) Urine Squamous Epithelial Cells Few /LPF Urine Bacteria 0 /HPF (0-FEW) Urine Mucus Slight /LPF Test 06/01/18 11:48 Glucose (Fingerstick) 347 mg/dL (70-99) ECHOCARDIOGRAM ECHOCARDIOGRAM <Conclusion> The systolic function is severely impaired. The Ejection Fraction is 25-30%. There is global hypokinesis of the left ventricle. The anterior wall, septum are severely hypokinetic. The apex appears hyperkinetic, but this may be due to off axis imaging. Tissue Doppler imaging reveals moderate left ventricular diastolic dysfunction. DATE: 01/14/18 1125 HEART CATH HEART CATH Conclusion 1. Mild LV dysfunction. 2. Two vessel cAD 3. Successful PCI of the mid RCA with implantation of a Xience 3.08/19 RODNEY Recommendations ASA 81mg daily Prasugrel 10mg daily x 30 days, then transition to Plavix 75mg daily for 1 full year Statin therapy Cardiac rehab referral DATE: 04/03/17 1426 ASSESSMENT/PLAN ASSESSMENT/PLAN 1. Bilateral LE cellulitis; as per PCP 2. COPD with continued tobaccoism 3. Acute on chronic combined systolic/diastolic CHF; CXR with pulmonary edema. Received IV Lasix in ED. 4. CAD; prior stent as noted above. Clinically stable 5. ICM: NYHA 1-2 EF at 25% 6. HTN: controlled 7. DM2/HLP: BS uncontrolled. per PCP 8. Morbid obesity, KATIUSKA; still waiting for CPAP Recommendations Antibiotic therapy per PCP/ID Continue Lasix, additional IV PRN Continue with secondary prevention measures. Will need CPAP/BiPAP; defer to PCP Discussed lifestyle modifications, wt loss, diet compliance. Smoking cessation FR2L, strict I & O, daily wt. Will reevaluate for entresto as an outpt basis Will consider for AICD as an outpt for primary prevention MIKE AGUILLON MD 06/01/18 4813: CARDIAC CONSULT ASSESSMENT/PLAN ASSESSMENT/PLAN Patient seen and examined Bilateral cellulitis. IV antibiotics as per the primary service and ID. Acute on chronic systolic heart failure. Ejection fraction of 25%. Diuresis with monitoring of lab. Coronary artery disease with prior stenting. No chest discomfort. Morbid obesity and obstructive sleep apnea. Pulmonary evaluating. Recheck echocardiogram and consideration for an ICD as an outpatient. Thank you for allowing us to participate in the care of your patient. JUANY PETERS APRN Jun 01, 2018 12:40 MIKE AGUILLON MD Jun 01, 2018 18:33
--- NOTE | 2018-06-01 13:19 | RAD ---
Examination: CT chest without contrast HISTORY: History of right lower lobe nodule COMPARISON: 01/16/2018 TECHNIQUE: Axial CT images of the chest were performed without contrast. Coronal and sagittal reformats are performed. Exposure: One or more of the following individualized dose reduction techniques were utilized for this examination: 1. Automated exposure control 2. Adjustment of the mA and/or kV according to patient size 3. Use of iterative reconstruction technique FINDINGS: The central airways are patent. Moderate cardiomegaly. The caliber of the aorta grossly appears unremarkable. Few prominent mediastinal lymph nodes identified with the largest measuring 2.3 cm in the subcarinal region. Mild prominence of the right hilum. Examination limited without IV contrast. Diffuse groundglass airspace opacities identified in the bilateral lungs particularly in the bibasilar lungs with the regions of air trappings in the bibasilar lungs. There are small solid nodules identified in the left lower lobe of the lung measuring 6 mm, 5 mm abutting the pleura. There is a 6 mm nodule identified in the right lower lobe of the lung abutting the pleura. The visualized noncontrasted liver, spleen, adrenals grossly appears unremarkable. Mild degenerative changes thoracic spine. IMPRESSION: 1. Diffuse groundglass airspace opacities identified in the bilateral lungs with air trapping in the bibasilar lungs could be groundglass infiltrates or edema. 2. Small nodules identified in the bibasilar lungs with the largest measuring 6 mm in the right lower lobe and left lower lobe of the lung. Follow-up per Fleischner Society guidelines with a follow-up CT in 6-12 months. 3. There is minimal prominence of the bilateral hilar region. Examination limited due to lack of IV contrast. Differential includes lymphadenopathy, prominent vasculature or hilar masses. Electronically signed by: Mack Wild MD (06/01/2018 1:16 PM) [email or web address]
[2018-06-01] MEDS: VANCOMYCIN 2 GM in IV NORMAL SALINE 500ML BAG 500 ML IV SCH ×2 (13:27→22:02)
[2018-06-01] MEDS ORDERED: ALBUTEROL SULFATE 2.5 MG/3 ML NEBU. NEB PRN (14:45)
[2018-06-01 15:00] VITALS: BP 136/75
[2018-06-01] MEDS: metFORMIN 500 MG TABLET PO SCH (17:36)
[2018-06-01] MEDS: HYDROcodone/APAP 7.5/325MG 1 TAB TABLET PO PRN ×2 (17:37→22:03)
[2018-06-01 19:00] VITALS: BP 123/60
--- NOTE | 2018-06-01 20:49 | CONS ---
DATE OF CONSULTATION: 06/01/2018 REQUESTING PHYSICIAN: Dr. Jean. REASON FOR CONSULTATION: Cellulitis, failed outpatient therapy. HISTORY OF PRESENT ILLNESS: This is a 48-year-old gentleman with morbid obesity, diabetes, hypertension, who has evidently been seen at the Emergency Room after hitting the right leg on to the table. The patient was given Augmentin. The patient had a rash and then subsequently received steroids. The patient also has had worsening, so he received Levaquin and doxycycline without any improvement, hence he came in. The patient is complaining of bilateral swelling, bilateral leg pain; bilateral knots on the back of the leg, on the left side it is in the calf, on the right side it is behind the thigh. He denies any fever. Denies any nausea, vomiting, diarrhea. Denies any chest pain, shortness of breath, abdominal pain, urinary symptoms or bowel symptoms. PAST MEDICAL HISTORY: Positive for diabetes mellitus, hypertension, morbid obesity, hyperlipidemia, has had knee surgery done. He has had appendicectomy, even has a history of rheumatoid arthritis. SOCIAL HISTORY: Positive for smoking. Negative for alcohol use or drug use. ALLERGIES: Listed as allergic to now AUGMENTIN with a rash. CURRENT MEDICATIONS: The patient is on vancomycin. REVIEW OF SYSTEMS: As per HPI, all other systems reviewed are negative. PHYSICAL EXAMINATION: GENERAL: Alert, oriented gentleman, not in distress. VITAL SIGNS: Stable, afebrile. HEENT: NAD. NECK: Supple, no JVP, no lymphadenopathy. LUNGS: Clear. HEART: S1, S2 regular. ABDOMEN: Benign. EXTREMITIES: Bilateral pitting edema present. Bilateral skin discoloration with stasis dermatitis present. He does have more discoloration of the right leg than the left leg, both are bit red. The patient does have Homans' positive on the left leg and the right leg has some induration into the right posterior thigh. The patient has no open wound. NEUROLOGICAL: The patient is neurologically alert, awake and appropriate. No focal neurologic deficit. LABORATORY DATA: White count is normal. BUN and creatinine is normal. Lactic acid is 1.9. Urinalysis unremarkable. Chest x-ray is unremarkable. IMPRESSION: 1. Right leg cellulitis. 2. Left leg may have deep vein thrombosis with Frank's positive. 3. Edema of the legs. 4. Morbid obesity. 5. Diabetes. 6. Hypertension. 7. History of trauma 5 weeks ago on the right leg. RECOMMENDATIONS: We will continue vancomycin. Leg elevation, weight loss. Ultrasound of the legs to rule out DVT, I would do both but although more concerning is left. Supportive care and we will continue to follow. Discussion with Dr. Jean done. Thank you very much, Dr. Jean, for giving me the opportunity to participate in this patient's care. CUCO TRENT MD DR: AMNA/jody JOB#: [id number] / [id number]
[2018-06-01] MEDS ORDERED: FAMOTIDINE 20 MG TABLET. PO SCH (21:00)
[2018-06-01] MEDS: ATORVASTATIN CALCIUM 10 MG TABLET. PO SCH (21:02)
[2018-06-01] MEDS: MONTELUKAST SODIUM 10 MG TABLET. PO SCH (21:02)
[2018-06-01] MEDS: LACTOBACILLUS RHAMNOSUS GG 1 CAPSULE. PO SCH (21:02)
[2018-06-01 21:49] LABS: VANC TR 15.1 mcg/mL (10.0-20.0)
--- NOTE | 2018-06-01 21:53 | NUR ---
Pharmacy Vancomycin Dosing Note S:Consulted to monitor and dose vancomycin started 06/01/18. O:OSMANGILBERTO is a 48 year old M with Cellulitis . Height: 6 feet, 0 inches Weight: 192.865169 kg [place] Body Weight: 77.60 Adjusted Body Weight: 123.76 Dosing Weight: Actual Other Antibiotics: LABS: Last BUN: 16 Last Creatinine: 0.8 Creatinine Clearance: >100 mL/min Last WBC: 9.2 Last Procalcitonin: Tmax (past 24 hours): 98.3 Microbiology: 05/31 BLOOD: NO GROWTH I/O: Drug Levels: Last Trough level: 15.0 on 06/01/18 at 2040 Last dose given 06/01/18 at 1327 Vancomycin Dosing: Loading Dose: 2000 mg x1 Dosing Weight: Actual Target Trough: 10-20 A: Based on: Therapeutic trough P: 1. Continue Vancomycin 2000 mg IV q8h 2. Follow up Trough level as needed. 3. Pharmacy will continue to monitor, follow and adjust therapy as needed. JUANY CASE [facility], 06/01/18 [id number]
[2018-06-01 23:02] VITALS: BP 143/88
[2018-06-02 03:06] VITALS: BP 132/53
[2018-06-02] MEDS: VANCOMYCIN 2 GM in IV NORMAL SALINE 500ML BAG 500 ML IV SCH ×3 (05:28→20:42)
[2018-06-02] MEDS: PANTOPRAZOLE 40 MG TABLET.DR. PO SCH (05:29)
[2018-06-02] MEDS: NON FORMULARY ITEM (Linaclotide (Linzess) 145 MCG) PO SCH (05:29)
[2018-06-02 07:00] VITALS: BP 133/83
[2018-06-02] MEDS: IPRATRPIUM/ALBUTEROL 0.5/2.5MG 3 ML NEBU. NEB SCH ×4 (07:05→19:17)
[2018-06-02 07:14] LABS: BASO # 0.1 x10^3/uL (0.0-0.2); BASO % 1 % (0-3); EOS # 0.4 x10^3/uL (0.0-0.7); EOS % 5 % (0-3); HEMATOCRIT 36.2 % (39.0-53.0); LYMPH # 1.3 x10^3/uL (1.0-4.8); LYMPH % 17 % (24-48); MEAN CORPUSCULAR HEMOGLOBIN 24 pg (25-35); MEAN CORPUSCULAR HGB CONC 31 g/dL (31-37); MEAN CORPUSCULAR VOLUME 79 fL (79-100); MONO # 0.8 x10^3/uL (0.0-1.1); MONO % 11 % (0-9); NEUT # 5.2 x10^3uL (1.8-7.7); NEUT % 66 % (31-73); PLATELET COUNT 211 x10^3/uL (140-400); RED BLOOD COUNT 4.58 x10^6/uL (4.30-5.70); RED CELL DISTRIBUTION WIDTH 19.4 % (11.5-14.5); WHITE BLOOD COUNT 7.8 x10^3/uL (4.0-11.0)
[2018-06-02 07:45] LABS: ALBUMIN 2.7 g/dL (3.4-5.0); ALBUMIN/GLOBULIN RATIO 0.6 (1.0-1.7); CALCIUM 8.6 mg/dL (8.5-10.1); CREATININE 0.9 mg/dL (0.7-1.3); GFR 109.9; MAGNESIUM 1.9 mg/dL (1.8-2.4); POTASSIUM 4.4 mmol/L (3.5-5.1); TOTAL BILIRUBIN 0.5 mg/dL (0.2-1.0); TOTAL PROTEIN 7.6 g/dL (6.4-8.2)
[2018-06-02] MEDS: buPROPion XL 150 MG TAB.ER.24H. PO SCH (08:17)
[2018-06-02] MEDS: HYDROcodone/APAP 7.5/325MG 1 TAB TABLET PO PRN ×3 (08:18→23:19)
[2018-06-02] MEDS: ASPIRIN ENTERIC COATED 81 MG TABLET.DR. PO SCH (08:18)
[2018-06-02] MEDS: LACTOBACILLUS RHAMNOSUS GG 1 CAPSULE. PO SCH ×2 (08:18→20:41)
[2018-06-02] MEDS: FUROSEMIDE 80 MG TABLET. PO SCH (08:20)
[2018-06-02] MEDS: metFORMIN 500 MG TABLET PO SCH ×2 (08:20→16:35)
[2018-06-02] MEDS: CARVEDILOL 6.25 MG TABLET. PO SCH ×2 (08:22→16:35)
[2018-06-02] MEDS: LISINOPRIL 20 MG TABLET PO SCH (08:22)
--- NOTE | 2018-06-02 08:29 | NUR ---
SW following pt for anticipated dc needs. Chart reviewed. Pt lives at home with family and on room air. ID following pt. No SW needs indicated at this time. Will continue to evaluate dc needs.
[2018-06-02] MEDS: INSULIN LISPRO 300 UNITS/3 ML INSULN.PEN. SQ SCH ×7 (08:40→20:52)
[2018-06-02] MEDS: INSULIN GLARGINE 300 UNITS/3 ML INSULN.PEN. SQ SCH ×2 (08:41→20:51)
[2018-06-02 11:00] VITALS: BP 154/76
--- NOTE | 2018-06-02 11:03 | PDOC ---
Infectious Disease Note Subjective Subjective pt is feeling better ROS ROS no n/v/d/sob Vital Sign Vital Signs Vital Signs Date Time Temp Pulse Resp B/P (MAP) Pulse Ox O2 Delivery O2 Flow Rate FiO2 06/02/18 10:54 Room Air 06/02/18 08:22 101 133/83 06/02/18 08:18 20 91 06/02/18 07:00 97.7 97.7 06/01/18 07:00 2.0 Physical Exam PHYSICAL EXAM GENERAL: Alert, oriented gentleman, not in distress. VITAL SIGNS: Stable, afebrile. HEENT: NAD. NECK: Supple, no JVP, no lymphadenopathy. LUNGS: Clear. HEART: S1, S2 regular. ABDOMEN: Benign. EXTREMITIES: Bilateral pitting edema present. Bilateral skin discoloration with stasis dermatitis present. He does have more discoloration of the right leg than the left leg, both are bit red. The patient does have Homans' positive on the left leg and the right leg has some induration into the right posterior thigh. The patient has no open wound. NEUROLOGICAL: The patient is neurologically alert, awake and appropriate. No focal neurologic deficit. Labs Lab Laboratory Tests Test 06/01/18 11:48 06/01/18 16:37 06/01/18 20:24 06/01/18 20:40 Glucose (Fingerstick) 347 mg/dL (70-99) 254 mg/dL (70-99) 288 mg/dL (70-99) Vancomycin Level Trough 15.1 mcg/mL (10.0-20.0) Vancomycin Last Dose Date Unk Vancomycin Last Dose Time Unk Test 06/02/18 06:40 06/02/18 07:04 White Blood Count 7.8 x10^3/uL (4.0-11.0) Red Blood Count 4.58 x10^6/uL (4.30-5.70) Hemoglobin 11.0 g/dL (13.0-17.5) Hematocrit 36.2 % (39.0-53.0) Mean Corpuscular Volume 79 fL (79-100) Mean Corpuscular Hemoglobin 24 pg (25-35) Mean Corpuscular Hemoglobin Concent 31 g/dL (31-37) Red Cell Distribution Width 19.4 % (11.5-14.5) Platelet Count 211 x10^3/uL (140-400) Neutrophils (%) (Auto) 66 % (31-73) Lymphocytes (%) (Auto) 17 % (24-48) Monocytes (%) (Auto) 11 % (0-9) Eosinophils (%) (Auto) 5 % (0-3) Basophils (%) (Auto) 1 % (0-3) Neutrophils # (Auto) 5.2 x10^3uL (1.8-7.7) Lymphocytes # (Auto) 1.3 x10^3/uL (1.0-4.8) Monocytes # (Auto) 0.8 x10^3/uL (0.0-1.1) Eosinophils # (Auto) 0.4 x10^3/uL (0.0-0.7) Basophils # (Auto) 0.1 x10^3/uL (0.0-0.2) Sodium Level 139 mmol/L (136-145) Potassium Level 4.4 mmol/L (3.5-5.1) Chloride Level 103 mmol/L (98-107) Carbon Dioxide Level 27 mmol/L (21-32) Anion Gap 9 (6-14) Blood Urea Nitrogen 19 mg/dL (8-26) Creatinine 0.9 mg/dL (0.7-1.3) Estimated GFR (Cockcroft-Gault) 109.9 BUN/Creatinine Ratio 21 (6-20) Glucose Level 321 mg/dL (70-99) Calcium Level 8.6 mg/dL (8.5-10.1) Magnesium Level 1.9 mg/dL (1.8-2.4) Total Bilirubin 0.5 mg/dL (0.2-1.0) Aspartate Amino Transf (AST/SGOT) 22 U/L (15-37) Alanine Aminotransferase (ALT/SGPT) 19 U/L (16-63) Alkaline Phosphatase 142 U/L (46-116) Total Protein 7.6 g/dL (6.4-8.2) Albumin 2.7 g/dL (3.4-5.0) Albumin/Globulin Ratio 0.6 (1.0-1.7) Glucose (Fingerstick) 282 mg/dL (70-99) Micro Microbiology 06/01/18 Blood Culture - Preliminary, Resulted NO GROWTH AFTER 1 DAY Objective Assessment Rt leg injury with cellulitis improving Left leg swelling and pain neg for DVT Morbid obesity DM HTN COPD Plan Plan of Care vanc leg elevation pt/ot dieting d/w CUCO Gloria MD Jun 02, 2018 11:03
--- NOTE | 2018-06-02 11:09 | PDOC ---
IM PROGRESS NOTES- Subjective Subjective Complaints of swelling of the legs. No complaints of dyspnea or chest pains. Objective Vitals Vital Signs Date Time Temp Pulse Resp B/P (MAP) Pulse Ox O2 Delivery O2 Flow Rate FiO2 06/02/18 10:54 Room Air 06/02/18 08:22 101 133/83 06/02/18 08:18 20 91 06/02/18 07:00 97.7 97.7 06/01/18 07:00 2.0 Input & Output Intake and Output 06/02/18 07:00 Intake Total 1740 ml Balance 1740 ml Intake Oral 1740 ml # Voids 4 Physical Exam Physical Exam The patient is a middle-aged male who is alert, oriented x 3, morbidly obese, and not in acute distress. EYES: Pupils reacting to light. Conjunctivae pale pink. Sclerae white. HENT: Unremarkable. NECK: Supple. JVP normal. No thyromegaly. Trachea midline. LUNGS: Decreased breath sounds at bases. CARDIOVASCULAR: S1, S2 regular. ABDOMEN: Soft, nontender, bowel sounds present. EXTREMITIES: 2+ edema bilaterally with decreased redness. CENTRAL NERVOUS SYSTEM: Alert and oriented. No acute changes. Labs Laboratory Tests Test 05/31/18 20:40 05/31/18 23:03 06/01/18 00:25 06/01/18 07:54 White Blood Count 9.2 x10^3/uL (4.0-11.0) Red Blood Count 4.82 x10^6/uL (4.30-5.70) Hemoglobin 11.9 g/dL (13.0-17.5) Hematocrit 37.5 % (39.0-53.0) Mean Corpuscular Volume 78 fL (79-100) Mean Corpuscular Hemoglobin 25 pg (25-35) Mean Corpuscular Hemoglobin Concent 32 g/dL (31-37) Red Cell Distribution Width 19.6 % (11.5-14.5) Platelet Count 233 x10^3/uL (140-400) Neutrophils (%) (Auto) 71 % (31-73) Lymphocytes (%) (Auto) 15 % (24-48) Monocytes (%) (Auto) 9 % (0-9) Eosinophils (%) (Auto) 5 % (0-3) Basophils (%) (Auto) 1 % (0-3) Neutrophils # (Auto) 6.5 x10^3uL (1.8-7.7) Lymphocytes # (Auto) 1.3 x10^3/uL (1.0-4.8) Monocytes # (Auto) 0.8 x10^3/uL (0.0-1.1) Eosinophils # (Auto) 0.4 x10^3/uL (0.0-0.7) Basophils # (Auto) 0.1 x10^3/uL (0.0-0.2) Prothrombin Time 14.0 SEC (11.7-14.0) Prothromb Time International Ratio 1.1 (0.8-1.1) Sodium Level 134 mmol/L (136-145) Potassium Level 4.5 mmol/L (3.5-5.1) Chloride Level 99 mmol/L (98-107) Carbon Dioxide Level 25 mmol/L (21-32) Anion Gap 10 (6-14) Blood Urea Nitrogen 16 mg/dL (8-26) Creatinine 0.8 mg/dL (0.7-1.3) Estimated GFR (Cockcroft-Gault) 125.9 BUN/Creatinine Ratio 20 (6-20) Glucose Level 366 mg/dL (70-99) Lactic Acid Level 1.9 mmol/L (0.4-2.0) Calcium Level 9.0 mg/dL (8.5-10.1) Total Bilirubin 0.6 mg/dL (0.2-1.0) Aspartate Amino Transf (AST/SGOT) 28 U/L (15-37) Alanine Aminotransferase (ALT/SGPT) 22 U/L (16-63) Alkaline Phosphatase 155 U/L (46-116) Troponin I Quantitative < 0.017 ng/mL (0.000-0.055) VS-Lqk-B-Type Natriuretic Peptide 588 pg/mL (0-124) Total Protein 8.9 g/dL (6.4-8.2) Albumin 3.2 g/dL (3.4-5.0) Albumin/Globulin Ratio 0.6 (1.0-1.7) Glucose (Fingerstick) 353 mg/dL (70-99) 336 mg/dL (70-99) Urine Collection Type Unknown Urine Color Yellow Urine Clarity Clear Urine pH 6.0 Urine Specific [place] 1.010 Urine Protein Negative mg/dL (NEG-TRACE) Urine Glucose (UA) 500 mg/dL (NEG) Urine Ketones (Stick) Negative mg/dL (NEG) Urine Blood Negative (NEG) Urine Nitrite Negative (NEG) Urine Bilirubin Negative (NEG) Urine Urobilinogen Dipstick 1.0 mg/dL (0.2 mg/dL) Urine Leukocyte Esterase Negative (NEG) Urine RBC 0 /HPF (0-2) Urine WBC 0 /HPF (0-4) Urine Squamous Epithelial Cells Few /LPF Urine Bacteria 0 /HPF (0-FEW) Urine Mucus Slight /LPF Test 06/01/18 11:48 06/01/18 16:37 06/01/18 20:24 06/01/18 20:40 Glucose (Fingerstick) 347 mg/dL (70-99) 254 mg/dL (70-99) 288 mg/dL (70-99) Vancomycin Level Trough 15.1 mcg/mL (10.0-20.0) Vancomycin Last Dose Date Unk Vancomycin Last Dose Time Unk Test 06/02/18 06:40 06/02/18 07:04 White Blood Count 7.8 x10^3/uL (4.0-11.0) Red Blood Count 4.58 x10^6/uL (4.30-5.70) Hemoglobin 11.0 g/dL (13.0-17.5) Hematocrit 36.2 % (39.0-53.0) Mean Corpuscular Volume 79 fL (79-100) Mean Corpuscular Hemoglobin 24 pg (25-35) Mean Corpuscular Hemoglobin Concent 31 g/dL (31-37) Red Cell Distribution Width 19.4 % (11.5-14.5) Platelet Count 211 x10^3/uL (140-400) Neutrophils (%) (Auto) 66 % (31-73) Lymphocytes (%) (Auto) 17 % (24-48) Monocytes (%) (Auto) 11 % (0-9) Eosinophils (%) (Auto) 5 % (0-3) Basophils (%) (Auto) 1 % (0-3) Neutrophils # (Auto) 5.2 x10^3uL (1.8-7.7) Lymphocytes # (Auto) 1.3 x10^3/uL (1.0-4.8) Monocytes # (Auto) 0.8 x10^3/uL (0.0-1.1) Eosinophils # (Auto) 0.4 x10^3/uL (0.0-0.7) Basophils # (Auto) 0.1 x10^3/uL (0.0-0.2) Sodium Level 139 mmol/L (136-145) Potassium Level 4.4 mmol/L (3.5-5.1) Chloride Level 103 mmol/L (98-107) Carbon Dioxide Level 27 mmol/L (21-32) Anion Gap 9 (6-14) Blood Urea Nitrogen 19 mg/dL (8-26) Creatinine 0.9 mg/dL (0.7-1.3) Estimated GFR (Cockcroft-Gault) 109.9 BUN/Creatinine Ratio 21 (6-20) Glucose Level 321 mg/dL (70-99) Calcium Level 8.6 mg/dL (8.5-10.1) Magnesium Level 1.9 mg/dL (1.8-2.4) Total Bilirubin 0.5 mg/dL (0.2-1.0) Aspartate Amino Transf (AST/SGOT) 22 U/L (15-37) Alanine Aminotransferase (ALT/SGPT) 19 U/L (16-63) Alkaline Phosphatase 142 U/L (46-116) Total Protein 7.6 g/dL (6.4-8.2) Albumin 2.7 g/dL (3.4-5.0) Albumin/Globulin Ratio 0.6 (1.0-1.7) Glucose (Fingerstick) 282 mg/dL (70-99) Laboratory Tests Test 06/01/18 11:48 06/01/18 16:37 06/01/18 20:24 06/01/18 20:40 Glucose (Fingerstick) 347 mg/dL (70-99) 254 mg/dL (70-99) 288 mg/dL (70-99) Vancomycin Level Trough 15.1 mcg/mL (10.0-20.0) Vancomycin Last Dose Date Unk Vancomycin Last Dose Time Unk Test 06/02/18 06:40 06/02/18 07:04 White Blood Count 7.8 x10^3/uL (4.0-11.0) Red Blood Count 4.58 x10^6/uL (4.30-5.70) Hemoglobin 11.0 g/dL (13.0-17.5) Hematocrit 36.2 % (39.0-53.0) Mean Corpuscular Volume 79 fL (79-100) Mean Corpuscular Hemoglobin 24 pg (25-35) Mean Corpuscular Hemoglobin Concent 31 g/dL (31-37) Red Cell Distribution Width 19.4 % (11.5-14.5) Platelet Count 211 x10^3/uL (140-400) Neutrophils (%) (Auto) 66 % (31-73) Lymphocytes (%) (Auto) 17 % (24-48) Monocytes (%) (Auto) 11 % (0-9) Eosinophils (%) (Auto) 5 % (0-3) Basophils (%) (Auto) 1 % (0-3) Neutrophils # (Auto) 5.2 x10^3uL (1.8-7.7) Lymphocytes # (Auto) 1.3 x10^3/uL (1.0-4.8) Monocytes # (Auto) 0.8 x10^3/uL (0.0-1.1) Eosinophils # (Auto) 0.4 x10^3/uL (0.0-0.7) Basophils # (Auto) 0.1 x10^3/uL (0.0-0.2) Sodium Level 139 mmol/L (136-145) Potassium Level 4.4 mmol/L (3.5-5.1) Chloride Level 103 mmol/L (98-107) Carbon Dioxide Level 27 mmol/L (21-32) Anion Gap 9 (6-14) Blood Urea Nitrogen 19 mg/dL (8-26) Creatinine 0.9 mg/dL (0.7-1.3) Estimated GFR (Cockcroft-Gault) 109.9 BUN/Creatinine Ratio 21 (6-20) Glucose Level 321 mg/dL (70-99) Calcium Level 8.6 mg/dL (8.5-10.1) Magnesium Level 1.9 mg/dL (1.8-2.4) Total Bilirubin 0.5 mg/dL (0.2-1.0) Aspartate Amino Transf (AST/SGOT) 22 U/L (15-37) Alanine Aminotransferase (ALT/SGPT) 19 U/L (16-63) Alkaline Phosphatase 142 U/L (46-116) Total Protein 7.6 g/dL (6.4-8.2) Albumin 2.7 g/dL (3.4-5.0) Albumin/Globulin Ratio 0.6 (1.0-1.7) Glucose (Fingerstick) 282 mg/dL (70-99) Meds Current Medications Acetaminophen/ Hydrocodone Bitart (Lortab 7.5/325) 1 tab PRN Q4HRS PRN PO MODERATE PAIN Last administered on 06/02/18at 08:18; Start 06/01/18 at 14:30 Albuterol Sulfate (Ventolin Neb Soln) 2.5 mg PRN Q4HRS PRN NEB SHORTNESS OF BREATH; Start 06/01/18 at 14:45 Albuterol/ Ipratropium (Duoneb) 3 ml RTQID NEB Last administered on 06/02/18at 10:54; Start 06/01/18 at 12:00 Atorvastatin Calcium (Lipitor) 10 mg QHS PO Last administered on 06/01/18at 21: 02; Start 06/01/18 at 21:00 Famotidine (Pepcid) 20 mg HS PO ; Start 06/01/18 at 21:00; Status Cancel Guaifenesin (Mucinex) 600 mg BID PO Last administered on 06/02/18at 08:22; Start 06/01/18 at 14:00 Insulin Human Lispro (HumaLOG) 0-20 UNITS QIDACHS SQ ; Start 06/02/18 at 11:30 Insulin Human Lispro (HumaLOG) 50 units TIDWMEALS SQ Last administered on at 08:40; Start 06/01/18 at 12:00; Stop 06/02/18 at 10:12; Status DC Insulin Human Lispro (HumaLOG) 60 units TIDWMEALS SQ ; Start 06/02/18 at 12:00 Lactobacillus Rhamnosus (Culturelle) 1 cap BID PO Last administered on at 08:18; Start 06/01/18 at 21:00 Metformin HCl (Glucophage) 1,000 mg BIDWMEALS PO Last administered on at 08:20; Start 2/25/19 at 17:00 Montelukast Sodium (Singulair) 10 mg QHS PO Last administered on 06/01/18at 21: 02; Start 06/01/18 at 21:00 Non-Formulary Medication (Linaclotide (Linzess)) 145 mcg DAILYAC PO Last administered on 06/02/18at 05:29; Start 06/02/18 at 07:30 Pantoprazole Sodium (Protonix) 40 mg DAILYAC PO Last administered on 06/02/18at 05:29; Start 06/01/18 at 11:00 Pantoprazole Sodium (Protonix) 40 mg DAILYAC PO ; Start 06/01/18 at 11:00; Status UNV Vancomycin HCl (Vancomycin Trough Level) 1 each 1X ONCE MC Last administered on 06/01/18at 20:30; Start 06/01/18 at 20:30; Stop 06/01/18 at 20:31; Status DC Vancomycin HCl 2 gm/Sodium Chloride 500 ml @ 250 mls/hr Q8H IV Last administered on 06/02/18at 05:28; Start 06/01/18 at 13:00 Assessment Assessment 1. Cellulitis of both lower extremities, worse on the right side. 2. Chronic edema of both lower extremities. 3. Possible deep venous thrombosis of both lower extremities. 4. 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 5. Morbid obesity. 6. Obstructive sleep apnea, CPAP noncompliant. 7. Diabetes mellitus type 2, insulin dependent, noncompliant. 8. Chronic obstructive pulmonary disease. 9. Slow transit constipation. 10. Osteoarthritis of both knees. 11. History of right lower lung nodule. 12. Gastroesophageal reflux disease with esophagitis. 13. Mixed hyperlipidemia. 14. Noncompliance. 15. Anemia of chronic disease. 16. Coronary artery disease with 2-vessel coronary artery disease, status post drug-eluting stent of the right coronary artery on 04/03/2017. PLAN: I will obtain venous Doppler of both lower extremities, consulted Dr. Rayray Torres for Infectious Disease evaluation and management. I also discussed the case with him. He has been started on IV vancomycin. I will also consult Dr. Jimenez for Cardiology evaluation and management. For details, please refer to the orders. Prognosis of this patient is poor due to his multiple medical problems. Patient remains very noncompliant.Remains noncompliant. Cellulitis legs- improving.Venous dopplers negative. Fluid retention - multifactorial. Pulmoonary nodules CT chest 1. Diffuse groundglass airspace opacities identified in the bilateral lungs with air trapping in the bibasilar lungs could be groundglass infiltrates or edema. 2. Small nodules identified in the bibasilar lungs with the largest measuring 6 mm in the right lower lobe and left lower lobe of the lung. Follow-up per Fleischner Society guidelines with a follow-up CT in 6-12 months. 3. There is minimal prominence of the bilateral hilar region. Examination limited due to lack of IV contrast. Differential includes lymphadenopathy, prominent vasculature or hilar masses. D/w Dr.Samir Torres and . Advised pt to watch diet and lose wt. Plan Plan For more details regarding further plans, please refer to the orders. PADDY LINCOLN MD Jun 02, 2018 11:09
[2018-06-02] MEDS: VANCOMYCIN PER PHARMACY MC PRN (13:05)
[2018-06-02] MEDS: NICOTINE 14MG PATCH. TD PRN (15:12)
[2018-06-02 15:18] VITALS: BP 111/59
--- NOTE | 2018-06-02 18:57 | PDOC ---
PULMONARY PROGRESS NOTES Vitals Vital Signs Date Time Temp Pulse Resp B/P (MAP) Pulse Ox O2 Delivery O2 Flow Rate FiO2 06/02/18 17:36 20 93 Room Air 2.0 06/02/18 16:35 100 111/59 06/02/18 15:18 97.8 97.8 General: Alert HEENT: Other Lungs: Crackles Cardiovascular: S1, S2 Abdomen: Soft, Non-tender Extremities: Other Labs Laboratory Tests Test 05/31/18 20:40 05/31/18 23:03 06/01/18 00:25 06/01/18 07:54 White Blood Count 9.2 x10^3/uL (4.0-11.0) Red Blood Count 4.82 x10^6/uL (4.30-5.70) Hemoglobin 11.9 g/dL (13.0-17.5) Hematocrit 37.5 % (39.0-53.0) Mean Corpuscular Volume 78 fL (79-100) Mean Corpuscular Hemoglobin 25 pg (25-35) Mean Corpuscular Hemoglobin Concent 32 g/dL (31-37) Red Cell Distribution Width 19.6 % (11.5-14.5) Platelet Count 233 x10^3/uL (140-400) Neutrophils (%) (Auto) 71 % (31-73) Lymphocytes (%) (Auto) 15 % (24-48) Monocytes (%) (Auto) 9 % (0-9) Eosinophils (%) (Auto) 5 % (0-3) Basophils (%) (Auto) 1 % (0-3) Neutrophils # (Auto) 6.5 x10^3uL (1.8-7.7) Lymphocytes # (Auto) 1.3 x10^3/uL (1.0-4.8) Monocytes # (Auto) 0.8 x10^3/uL (0.0-1.1) Eosinophils # (Auto) 0.4 x10^3/uL (0.0-0.7) Basophils # (Auto) 0.1 x10^3/uL (0.0-0.2) Prothrombin Time 14.0 SEC (11.7-14.0) Prothromb Time International Ratio 1.1 (0.8-1.1) Sodium Level 134 mmol/L (136-145) Potassium Level 4.5 mmol/L (3.5-5.1) Chloride Level 99 mmol/L (98-107) Carbon Dioxide Level 25 mmol/L (21-32) Anion Gap 10 (6-14) Blood Urea Nitrogen 16 mg/dL (8-26) Creatinine 0.8 mg/dL (0.7-1.3) Estimated GFR (Cockcroft-Gault) 125.9 BUN/Creatinine Ratio 20 (6-20) Glucose Level 366 mg/dL (70-99) Lactic Acid Level 1.9 mmol/L (0.4-2.0) Calcium Level 9.0 mg/dL (8.5-10.1) Total Bilirubin 0.6 mg/dL (0.2-1.0) Aspartate Amino Transf (AST/SGOT) 28 U/L (15-37) Alanine Aminotransferase (ALT/SGPT) 22 U/L (16-63) Alkaline Phosphatase 155 U/L (46-116) Troponin I Quantitative < 0.017 ng/mL (0.000-0.055) RY-Nqh-P-Type Natriuretic Peptide 588 pg/mL (0-124) Total Protein 8.9 g/dL (6.4-8.2) Albumin 3.2 g/dL (3.4-5.0) Albumin/Globulin Ratio 0.6 (1.0-1.7) Glucose (Fingerstick) 353 mg/dL (70-99) 336 mg/dL (70-99) Urine Collection Type Unknown Urine Color Yellow Urine Clarity Clear Urine pH 6.0 Urine Specific [place] 1.010 Urine Protein Negative mg/dL (NEG-TRACE) Urine Glucose (UA) 500 mg/dL (NEG) Urine Ketones (Stick) Negative mg/dL (NEG) Urine Blood Negative (NEG) Urine Nitrite Negative (NEG) Urine Bilirubin Negative (NEG) Urine Urobilinogen Dipstick 1.0 mg/dL (0.2 mg/dL) Urine Leukocyte Esterase Negative (NEG) Urine RBC 0 /HPF (0-2) Urine WBC 0 /HPF (0-4) Urine Squamous Epithelial Cells Few /LPF Urine Bacteria 0 /HPF (0-FEW) Urine Mucus Slight /LPF Test 06/01/18 11:48 06/01/18 16:37 06/01/18 20:24 06/01/18 20:40 Glucose (Fingerstick) 347 mg/dL (70-99) 254 mg/dL (70-99) 288 mg/dL (70-99) Vancomycin Level Trough 15.1 mcg/mL (10.0-20.0) Vancomycin Last Dose Date Unk Vancomycin Last Dose Time Unk Test 06/02/18 06:40 06/02/18 07:04 06/02/18 11:03 06/02/18 16:15 White Blood Count 7.8 x10^3/uL (4.0-11.0) Red Blood Count 4.58 x10^6/uL (4.30-5.70) Hemoglobin 11.0 g/dL (13.0-17.5) Hematocrit 36.2 % (39.0-53.0) Mean Corpuscular Volume 79 fL (79-100) Mean Corpuscular Hemoglobin 24 pg (25-35) Mean Corpuscular Hemoglobin Concent 31 g/dL (31-37) Red Cell Distribution Width 19.4 % (11.5-14.5) Platelet Count 211 x10^3/uL (140-400) Neutrophils (%) (Auto) 66 % (31-73) Lymphocytes (%) (Auto) 17 % (24-48) Monocytes (%) (Auto) 11 % (0-9) Eosinophils (%) (Auto) 5 % (0-3) Basophils (%) (Auto) 1 % (0-3) Neutrophils # (Auto) 5.2 x10^3uL (1.8-7.7) Lymphocytes # (Auto) 1.3 x10^3/uL (1.0-4.8) Monocytes # (Auto) 0.8 x10^3/uL (0.0-1.1) Eosinophils # (Auto) 0.4 x10^3/uL (0.0-0.7) Basophils # (Auto) 0.1 x10^3/uL (0.0-0.2) Sodium Level 139 mmol/L (136-145) Potassium Level 4.4 mmol/L (3.5-5.1) Chloride Level 103 mmol/L (98-107) Carbon Dioxide Level 27 mmol/L (21-32) Anion Gap 9 (6-14) Blood Urea Nitrogen 19 mg/dL (8-26) Creatinine 0.9 mg/dL (0.7-1.3) Estimated GFR (Cockcroft-Gault) 109.9 BUN/Creatinine Ratio 21 (6-20) Glucose Level 321 mg/dL (70-99) Calcium Level 8.6 mg/dL (8.5-10.1) Magnesium Level 1.9 mg/dL (1.8-2.4) Total Bilirubin 0.5 mg/dL (0.2-1.0) Aspartate Amino Transf (AST/SGOT) 22 U/L (15-37) Alanine Aminotransferase (ALT/SGPT) 19 U/L (16-63) Alkaline Phosphatase 142 U/L (46-116) Total Protein 7.6 g/dL (6.4-8.2) Albumin 2.7 g/dL (3.4-5.0) Albumin/Globulin Ratio 0.6 (1.0-1.7) Glucose (Fingerstick) 282 mg/dL (70-99) 256 mg/dL (70-99) 157 mg/dL (70-99) Laboratory Tests Test 06/01/18 20:24 06/01/18 20:40 06/02/18 06:40 06/02/18 07:04 Glucose (Fingerstick) 288 mg/dL (70-99) 282 mg/dL (70-99) Vancomycin Level Trough 15.1 mcg/mL (10.0-20.0) Vancomycin Last Dose Date Unk Vancomycin Last Dose Time Unk White Blood Count 7.8 x10^3/uL (4.0-11.0) Red Blood Count 4.58 x10^6/uL (4.30-5.70) Hemoglobin 11.0 g/dL (13.0-17.5) Hematocrit 36.2 % (39.0-53.0) Mean Corpuscular Volume 79 fL (79-100) Mean Corpuscular Hemoglobin 24 pg (25-35) Mean Corpuscular Hemoglobin Concent 31 g/dL (31-37) Red Cell Distribution Width 19.4 % (11.5-14.5) Platelet Count 211 x10^3/uL (140-400) Neutrophils (%) (Auto) 66 % (31-73) Lymphocytes (%) (Auto) 17 % (24-48) Monocytes (%) (Auto) 11 % (0-9) Eosinophils (%) (Auto) 5 % (0-3) Basophils (%) (Auto) 1 % (0-3) Neutrophils # (Auto) 5.2 x10^3uL (1.8-7.7) Lymphocytes # (Auto) 1.3 x10^3/uL (1.0-4.8) Monocytes # (Auto) 0.8 x10^3/uL (0.0-1.1) Eosinophils # (Auto) 0.4 x10^3/uL (0.0-0.7) Basophils # (Auto) 0.1 x10^3/uL (0.0-0.2) Sodium Level 139 mmol/L (136-145) Potassium Level 4.4 mmol/L (3.5-5.1) Chloride Level 103 mmol/L (98-107) Carbon Dioxide Level 27 mmol/L (21-32) Anion Gap 9 (6-14) Blood Urea Nitrogen 19 mg/dL (8-26) Creatinine 0.9 mg/dL (0.7-1.3) Estimated GFR (Cockcroft-Gault) 109.9 BUN/Creatinine Ratio 21 (6-20) Glucose Level 321 mg/dL (70-99) Calcium Level 8.6 mg/dL (8.5-10.1) Magnesium Level 1.9 mg/dL (1.8-2.4) Total Bilirubin 0.5 mg/dL (0.2-1.0) Aspartate Amino Transf (AST/SGOT) 22 U/L (15-37) Alanine Aminotransferase (ALT/SGPT) 19 U/L (16-63) Alkaline Phosphatase 142 U/L (46-116) Total Protein 7.6 g/dL (6.4-8.2) Albumin 2.7 g/dL (3.4-5.0) Albumin/Globulin Ratio 0.6 (1.0-1.7) Test 06/02/18 11:03 06/02/18 16:15 Glucose (Fingerstick) 256 mg/dL (70-99) 157 mg/dL (70-99) Medications Active Scripts Medications Dose Route/Sig Max Daily Dose Days Date Category Bevespi Aerosphere Inhaler (Glycopyrrolate/Formoterol Fum) 10.7 Gm Hfa.aer.ad 10.7 Gm IH DAILY 2/24/19 Reported Lantus Solostar (Insulin Glargine,Hum.rec.anlog) 100 Unit/1 Ml Insuln.pen 80 Unit SQ BID 05/31/18 Reported Humalog (Insulin Lispro) 100 Unit/1 Ml Vial 50 Unit SQ TIDAC 01/19/18 Reported Wellbutrin Xl (Bupropion Hcl) 300 Mg Tab.er.24h 1 Tab PO DAILY 01/19/18 Rx Furosemide 80 Mg Tablet 80 Mg PO DAILY 30 01/19/18 Rx Duoneb 0.5-3(2.5) Mg/3 Ml (Albuterol/Ipratropium) 3 Ml Ampul.neb 3 Ml NEB RTQID 30 01/19/18 Rx Levaquin (Levofloxacin) 500 Mg Tablet 500 Mg PO DAILY06 5 01/19/18 Rx Carvedilol (Carvedilol) 6.25 Mg Tablet 1 Tab PO BID 01/15/18 Reported Pravastatin Sodium 20 Mg Tablet 1 Tab PO QHS 01/15/18 Reported Singulair Tablet (Montelukast Sodium) 10 Mg Tablet 10 Mg PO HS 01/15/18 Reported Famotidine 20 Mg Tablet 20 Mg PO HS 01/15/18 Reported Dexilant (Dexlansoprazole) 60 Mg Cap.mp 1 Cap PO DAILY 01/15/18 Reported Linzess (Linaclotide) 145 Mcg Capsule 145 Mcg PO DAILY 01/15/18 Reported [Nicotine 21MG] 1 PATCH Patch 1 Patch TD DAILY 04/04/17 Rx Glucophage (Metformin Hcl) 1,000 Mg Tablet 1,000 Mg PO BIDWMEALS 04/04/17 Rx Lisinopril 20 Mg Tablet 20 Mg PO DAILY 04/04/17 Rx Aspirin Ec (Aspirin) 81 Mg Tablet. 81 Mg PO DAILYWBKFT 04/04/17 Rx Impression . FULL NOTE DICTATED D/W DR LINCOLN AGREE WITH CURRENT RX REPEAT CT IN 6 MONTHS WILL RESCHEDULE THE SLEEP STUDY PHILIP CABALLERO MD Jun 02, 2018 18:57
[2018-06-02 19:00] VITALS: BP 165/74
[2018-06-02] MEDS: ATORVASTATIN CALCIUM 10 MG TABLET. PO SCH (20:41)
[2018-06-02] MEDS: MONTELUKAST SODIUM 10 MG TABLET. PO SCH (20:41)
[2018-06-02 23:00] VITALS: BP 148/69
[2018-06-03 03:00] VITALS: BP 150/88
[2018-06-03] MEDS: VANCOMYCIN 2 GM in IV NORMAL SALINE 500ML BAG 500 ML IV SCH (05:49)
[2018-06-03 07:00] VITALS: BP 147/88
[2018-06-03] MEDS: PANTOPRAZOLE 40 MG TABLET.DR. PO SCH (07:30)
[2018-06-03] MEDS: IPRATRPIUM/ALBUTEROL 0.5/2.5MG 3 ML NEBU. NEB SCH ×4 (07:57→20:00)
[2018-06-03] MEDS: metFORMIN 500 MG TABLET PO SCH ×2 (08:00→17:00)
[2018-06-03] MEDS: CARVEDILOL 6.25 MG TABLET. PO SCH ×2 (08:00→17:00)
[2018-06-03] MEDS: ASPIRIN ENTERIC COATED 81 MG TABLET.DR. PO SCH (08:00)
[2018-06-03] MEDS: INSULIN LISPRO 300 UNITS/3 ML INSULN.PEN. SQ SCH ×7 (08:00→20:28)
[2018-06-03 08:26] LABS: ALBUMIN/GLOBULIN RATIO 0.6 (1.0-1.7); CALCIUM 8.9 mg/dL (8.5-10.1); CREATININE 0.7 mg/dL (0.7-1.3); GFR 146.9; POTASSIUM 4.1 mmol/L (3.5-5.1); TOTAL BILIRUBIN 0.5 mg/dL (0.2-1.0); TOTAL PROTEIN 8.1 g/dL (6.4-8.2)
[2018-06-03] MEDS: LISINOPRIL 20 MG TABLET PO SCH (09:00)
[2018-06-03] MEDS: FUROSEMIDE 80 MG TABLET. PO SCH (09:00)
[2018-06-03] MEDS: INSULIN GLARGINE 300 UNITS/3 ML INSULN.PEN. SQ SCH ×2 (09:00→20:28)
[2018-06-03] MEDS: LACTOBACILLUS RHAMNOSUS GG 1 CAPSULE. PO SCH ×2 (09:00→20:22)
[2018-06-03] MEDS: buPROPion XL 150 MG TAB.ER.24H. PO SCH (09:00)
[2018-06-03] MEDS: HYDROcodone/APAP 7.5/325MG 1 TAB TABLET PO PRN ×2 (09:18→20:22)
[2018-06-03] MEDS: NON FORMULARY ITEM (Linaclotide (Linzess) 145 MCG) PO SCH (09:36)
--- NOTE | 2018-06-03 09:48 | PDOC ---
PULMONARY PROGRESS NOTES Vitals Vital Signs Date Time Temp Pulse Resp B/P (MAP) Pulse Ox O2 Delivery O2 Flow Rate FiO2 06/03/18 09:00 105 147/88 06/03/18 07:57 92 Nasal Cannula 2.0 06/03/18 07:00 98.3 22 98.3 General: Alert HEENT: Other Lungs: Crackles Cardiovascular: S1, S2 Abdomen: Soft, Non-tender Extremities: Other Labs Laboratory Tests Test 06/01/18 11:48 06/01/18 16:37 06/01/18 20:24 06/01/18 20:40 Glucose (Fingerstick) 347 mg/dL (70-99) 254 mg/dL (70-99) 288 mg/dL (70-99) Vancomycin Level Trough 15.1 mcg/mL (10.0-20.0) Vancomycin Last Dose Date Unk Vancomycin Last Dose Time Unk Test 06/02/18 06:40 06/02/18 07:04 06/02/18 11:03 06/02/18 16:15 White Blood Count 7.8 x10^3/uL (4.0-11.0) Red Blood Count 4.58 x10^6/uL (4.30-5.70) Hemoglobin 11.0 g/dL (13.0-17.5) Hematocrit 36.2 % (39.0-53.0) Mean Corpuscular Volume 79 fL (79-100) Mean Corpuscular Hemoglobin 24 pg (25-35) Mean Corpuscular Hemoglobin Concent 31 g/dL (31-37) Red Cell Distribution Width 19.4 % (11.5-14.5) Platelet Count 211 x10^3/uL (140-400) Neutrophils (%) (Auto) 66 % (31-73) Lymphocytes (%) (Auto) 17 % (24-48) Monocytes (%) (Auto) 11 % (0-9) Eosinophils (%) (Auto) 5 % (0-3) Basophils (%) (Auto) 1 % (0-3) Neutrophils # (Auto) 5.2 x10^3uL (1.8-7.7) Lymphocytes # (Auto) 1.3 x10^3/uL (1.0-4.8) Monocytes # (Auto) 0.8 x10^3/uL (0.0-1.1) Eosinophils # (Auto) 0.4 x10^3/uL (0.0-0.7) Basophils # (Auto) 0.1 x10^3/uL (0.0-0.2) Sodium Level 139 mmol/L (136-145) Potassium Level 4.4 mmol/L (3.5-5.1) Chloride Level 103 mmol/L (98-107) Carbon Dioxide Level 27 mmol/L (21-32) Anion Gap 9 (6-14) Blood Urea Nitrogen 19 mg/dL (8-26) Creatinine 0.9 mg/dL (0.7-1.3) Estimated GFR (Cockcroft-Gault) 109.9 BUN/Creatinine Ratio 21 (6-20) Glucose Level 321 mg/dL (70-99) Calcium Level 8.6 mg/dL (8.5-10.1) Magnesium Level 1.9 mg/dL (1.8-2.4) Total Bilirubin 0.5 mg/dL (0.2-1.0) Aspartate Amino Transf (AST/SGOT) 22 U/L (15-37) Alanine Aminotransferase (ALT/SGPT) 19 U/L (16-63) Alkaline Phosphatase 142 U/L (46-116) Total Protein 7.6 g/dL (6.4-8.2) Albumin 2.7 g/dL (3.4-5.0) Albumin/Globulin Ratio 0.6 (1.0-1.7) Glucose (Fingerstick) 282 mg/dL (70-99) 256 mg/dL (70-99) 157 mg/dL (70-99) Test 06/02/18 20:28 06/03/18 06:46 06/03/18 07:18 Glucose (Fingerstick) 103 mg/dL (70-99) 291 mg/dL (70-99) Sodium Level 139 mmol/L (136-145) Potassium Level 4.1 mmol/L (3.5-5.1) Chloride Level 102 mmol/L (98-107) Carbon Dioxide Level 28 mmol/L (21-32) Anion Gap 9 (6-14) Blood Urea Nitrogen 15 mg/dL (8-26) Creatinine 0.7 mg/dL (0.7-1.3) Estimated GFR (Cockcroft-Gault) 146.9 BUN/Creatinine Ratio 21 (6-20) Glucose Level 299 mg/dL (70-99) Calcium Level 8.9 mg/dL (8.5-10.1) Total Bilirubin 0.5 mg/dL (0.2-1.0) Aspartate Amino Transf (AST/SGOT) 20 U/L (15-37) Alanine Aminotransferase (ALT/SGPT) 21 U/L (16-63) Alkaline Phosphatase 156 U/L (46-116) Total Protein 8.1 g/dL (6.4-8.2) Albumin 3.0 g/dL (3.4-5.0) Albumin/Globulin Ratio 0.6 (1.0-1.7) Laboratory Tests Test 06/02/18 11:03 06/02/18 16:15 06/02/18 20:28 06/03/18 06:46 Glucose (Fingerstick) 256 mg/dL (70-99) 157 mg/dL (70-99) 103 mg/dL (70-99) Sodium Level 139 mmol/L (136-145) Potassium Level 4.1 mmol/L (3.5-5.1) Chloride Level 102 mmol/L (98-107) Carbon Dioxide Level 28 mmol/L (21-32) Anion Gap 9 (6-14) Blood Urea Nitrogen 15 mg/dL (8-26) Creatinine 0.7 mg/dL (0.7-1.3) Estimated GFR (Cockcroft-Gault) 146.9 BUN/Creatinine Ratio 21 (6-20) Glucose Level 299 mg/dL (70-99) Calcium Level 8.9 mg/dL (8.5-10.1) Total Bilirubin 0.5 mg/dL (0.2-1.0) Aspartate Amino Transf (AST/SGOT) 20 U/L (15-37) Alanine Aminotransferase (ALT/SGPT) 21 U/L (16-63) Alkaline Phosphatase 156 U/L (46-116) Total Protein 8.1 g/dL (6.4-8.2) Albumin 3.0 g/dL (3.4-5.0) Albumin/Globulin Ratio 0.6 (1.0-1.7) Test 06/03/18 07:18 Glucose (Fingerstick) 291 mg/dL (70-99) Medications Active Scripts Medications Dose Route/Sig Max Daily Dose Days Date Category Bevespi Aerosphere Inhaler (Glycopyrrolate/Formoterol Fum) 10.7 Gm Hfa.aer.ad 10.7 Gm IH DAILY 05/31/18 Reported Lantus Solostar (Insulin Glargine,Hum.rec.anlog) 100 Unit/1 Ml Insuln.pen 80 Unit SQ BID 05/31/18 Reported Humalog (Insulin Lispro) 100 Unit/1 Ml Vial 50 Unit SQ TIDAC 01/19/18 Reported Wellbutrin Xl (Bupropion Hcl) 300 Mg Tab.er.24h 1 Tab PO DAILY 01/19/18 Rx Furosemide 80 Mg Tablet 80 Mg PO DAILY 30 01/19/18 Rx Duoneb 0.5-3(2.5) Mg/3 Ml (Albuterol/Ipratropium) 3 Ml Ampul.neb 3 Ml NEB RTQID 30 01/19/18 Rx Levaquin (Levofloxacin) 500 Mg Tablet 500 Mg PO DAILY06 5 01/19/18 Rx Carvedilol (Carvedilol) 6.25 Mg Tablet 1 Tab PO BID 01/15/18 Reported Pravastatin Sodium 20 Mg Tablet 1 Tab PO QHS 01/15/18 Reported Singulair Tablet (Montelukast Sodium) 10 Mg Tablet 10 Mg PO HS 01/15/18 Reported Famotidine 20 Mg Tablet 20 Mg PO HS 01/15/18 Reported Dexilant (Dexlansoprazole) 60 Mg Cap.mp 1 Cap PO DAILY 01/15/18 Reported Linzess (Linaclotide) 145 Mcg Capsule 145 Mcg PO DAILY 01/15/18 Reported [Nicotine 21MG] 1 PATCH Patch 1 Patch TD DAILY 04/04/17 Rx Glucophage (Metformin Hcl) 1,000 Mg Tablet 1,000 Mg PO BIDWMEALS 04/04/17 Rx Lisinopril 20 Mg Tablet 20 Mg PO DAILY 04/04/17 Rx Aspirin Ec (Aspirin) 81 Mg Tablet. 81 Mg PO DAILYWBKFT 04/04/17 Rx Impression . FULL NOTE DICTATED D/W DR LINCOLN AGREE WITH CURRENT RX REPEAT CT IN 6 MONTHS WILL RESCHEDULE THE SLEEP STUDY PHILIP CABALLERO MD Jun 03, 2018 09:48
--- NOTE | 2018-06-03 10:13 | PDOC ---
Infectious Disease Note Subjective Subjective pt is feeling better ROS ROS no n/v/d/sob Vital Sign Vital Signs Vital Signs Date Time Temp Pulse Resp B/P (MAP) Pulse Ox O2 Delivery O2 Flow Rate FiO2 06/03/18 09:18 92 Room Air 2.0 06/03/18 09:00 105 147/88 06/03/18 07:00 98.3 22 98.3 Physical Exam PHYSICAL EXAM GENERAL: Alert, oriented gentleman, not in distress. VITAL SIGNS: Stable, afebrile. HEENT: NAD. NECK: Supple, no JVP, no lymphadenopathy. LUNGS: Clear. HEART: S1, S2 regular. ABDOMEN: Benign. EXTREMITIES: Bilateral pitting edema present. Bilateral skin discoloration with stasis dermatitis present. He does have more discoloration of the right leg than the left leg, both are bit red. The patient does have Homans' positive on the left leg and the right leg has some induration into the right posterior thigh. The patient has no open wound. NEUROLOGICAL: The patient is neurologically alert, awake and appropriate. No focal neurologic deficit. Labs Lab Laboratory Tests Test 06/02/18 11:03 06/02/18 16:15 06/02/18 20:28 06/03/18 06:46 Glucose (Fingerstick) 256 mg/dL (70-99) 157 mg/dL (70-99) 103 mg/dL (70-99) Sodium Level 139 mmol/L (136-145) Potassium Level 4.1 mmol/L (3.5-5.1) Chloride Level 102 mmol/L (98-107) Carbon Dioxide Level 28 mmol/L (21-32) Anion Gap 9 (6-14) Blood Urea Nitrogen 15 mg/dL (8-26) Creatinine 0.7 mg/dL (0.7-1.3) Estimated GFR (Cockcroft-Gault) 146.9 BUN/Creatinine Ratio 21 (6-20) Glucose Level 299 mg/dL (70-99) Calcium Level 8.9 mg/dL (8.5-10.1) Total Bilirubin 0.5 mg/dL (0.2-1.0) Aspartate Amino Transf (AST/SGOT) 20 U/L (15-37) Alanine Aminotransferase (ALT/SGPT) 21 U/L (16-63) Alkaline Phosphatase 156 U/L (46-116) Total Protein 8.1 g/dL (6.4-8.2) Albumin 3.0 g/dL (3.4-5.0) Albumin/Globulin Ratio 0.6 (1.0-1.7) Test 06/03/18 07:18 Glucose (Fingerstick) 291 mg/dL (70-99) Micro Microbiology 06/01/18 Blood Culture - Preliminary, Resulted NO GROWTH AFTER 1 DAY Objective Assessment Rt leg injury with cellulitis improving Left leg swelling and pain neg for DVT Morbid obesity DM HTN COPD Plan Plan of Care vanc ,,, change to po omnicef pt has mostly chronic changes leg elevation pt/ot dieting d/w dr Ted TRENT,CUCO Ford MD Jun 03, 2018 10:13
--- NOTE | 2018-06-03 10:18 | PDOC ---
IM PROGRESS NOTES- Subjective Subjective Complaints of swelling of the legs. No complaints of dyspnea or chest pains. Complains of tingling, burning and numbness in lower extremities. Objective Vitals Vital Signs Date Time Temp Pulse Resp B/P (MAP) Pulse Ox O2 Delivery O2 Flow Rate FiO2 06/03/18 09:18 92 Room Air 2.0 06/03/18 09:00 105 147/88 06/03/18 07:00 98.3 22 98.3 Input & Output Intake and Output 06/03/18 07:00 Intake Total 680 ml Output Total 200 ml Balance 480 ml Intake Oral 680 ml Output Urine Total 200 ml # Voids 5 Physical Exam Physical Exam The patient is a middle-aged male who is alert, oriented x 3, morbidly obese, and not in acute distress. EYES: Pupils reacting to light. Conjunctivae pale pink. Sclerae white. HENT: Unremarkable. NECK: Supple. JVP normal. No thyromegaly. Trachea midline. LUNGS: Decreased breath sounds at bases. CARDIOVASCULAR: S1, S2 regular. ABDOMEN: Soft, nontender, bowel sounds present. EXTREMITIES: 2+ edema bilaterally with decreased redness. CENTRAL NERVOUS SYSTEM: Alert and oriented. No acute changes. Labs Laboratory Tests Test 06/01/18 11:48 06/01/18 16:37 06/01/18 20:24 06/01/18 20:40 Glucose (Fingerstick) 347 mg/dL (70-99) 254 mg/dL (70-99) 288 mg/dL (70-99) Vancomycin Level Trough 15.1 mcg/mL (10.0-20.0) Vancomycin Last Dose Date Unk Vancomycin Last Dose Time Unk Test 06/02/18 06:40 06/02/18 07:04 06/02/18 11:03 06/02/18 16:15 White Blood Count 7.8 x10^3/uL (4.0-11.0) Red Blood Count 4.58 x10^6/uL (4.30-5.70) Hemoglobin 11.0 g/dL (13.0-17.5) Hematocrit 36.2 % (39.0-53.0) Mean Corpuscular Volume 79 fL (79-100) Mean Corpuscular Hemoglobin 24 pg (25-35) Mean Corpuscular Hemoglobin Concent 31 g/dL (31-37) Red Cell Distribution Width 19.4 % (11.5-14.5) Platelet Count 211 x10^3/uL (140-400) Neutrophils (%) (Auto) 66 % (31-73) Lymphocytes (%) (Auto) 17 % (24-48) Monocytes (%) (Auto) 11 % (0-9) Eosinophils (%) (Auto) 5 % (0-3) Basophils (%) (Auto) 1 % (0-3) Neutrophils # (Auto) 5.2 x10^3uL (1.8-7.7) Lymphocytes # (Auto) 1.3 x10^3/uL (1.0-4.8) Monocytes # (Auto) 0.8 x10^3/uL (0.0-1.1) Eosinophils # (Auto) 0.4 x10^3/uL (0.0-0.7) Basophils # (Auto) 0.1 x10^3/uL (0.0-0.2) Sodium Level 139 mmol/L (136-145) Potassium Level 4.4 mmol/L (3.5-5.1) Chloride Level 103 mmol/L (98-107) Carbon Dioxide Level 27 mmol/L (21-32) Anion Gap 9 (6-14) Blood Urea Nitrogen 19 mg/dL (8-26) Creatinine 0.9 mg/dL (0.7-1.3) Estimated GFR (Cockcroft-Gault) 109.9 BUN/Creatinine Ratio 21 (6-20) Glucose Level 321 mg/dL (70-99) Calcium Level 8.6 mg/dL (8.5-10.1) Magnesium Level 1.9 mg/dL (1.8-2.4) Total Bilirubin 0.5 mg/dL (0.2-1.0) Aspartate Amino Transf (AST/SGOT) 22 U/L (15-37) Alanine Aminotransferase (ALT/SGPT) 19 U/L (16-63) Alkaline Phosphatase 142 U/L (46-116) Total Protein 7.6 g/dL (6.4-8.2) Albumin 2.7 g/dL (3.4-5.0) Albumin/Globulin Ratio 0.6 (1.0-1.7) Glucose (Fingerstick) 282 mg/dL (70-99) 256 mg/dL (70-99) 157 mg/dL (70-99) Test 06/02/18 20:28 06/03/18 06:46 06/03/18 07:18 Glucose (Fingerstick) 103 mg/dL (70-99) 291 mg/dL (70-99) Sodium Level 139 mmol/L (136-145) Potassium Level 4.1 mmol/L (3.5-5.1) Chloride Level 102 mmol/L (98-107) Carbon Dioxide Level 28 mmol/L (21-32) Anion Gap 9 (6-14) Blood Urea Nitrogen 15 mg/dL (8-26) Creatinine 0.7 mg/dL (0.7-1.3) Estimated GFR (Cockcroft-Gault) 146.9 BUN/Creatinine Ratio 21 (6-20) Glucose Level 299 mg/dL (70-99) Calcium Level 8.9 mg/dL (8.5-10.1) Total Bilirubin 0.5 mg/dL (0.2-1.0) Aspartate Amino Transf (AST/SGOT) 20 U/L (15-37) Alanine Aminotransferase (ALT/SGPT) 21 U/L (16-63) Alkaline Phosphatase 156 U/L (46-116) Total Protein 8.1 g/dL (6.4-8.2) Albumin 3.0 g/dL (3.4-5.0) Albumin/Globulin Ratio 0.6 (1.0-1.7) Laboratory Tests Test 06/02/18 11:03 06/02/18 16:15 06/02/18 20:28 06/03/18 06:46 Glucose (Fingerstick) 256 mg/dL (70-99) 157 mg/dL (70-99) 103 mg/dL (70-99) Sodium Level 139 mmol/L (136-145) Potassium Level 4.1 mmol/L (3.5-5.1) Chloride Level 102 mmol/L (98-107) Carbon Dioxide Level 28 mmol/L (21-32) Anion Gap 9 (6-14) Blood Urea Nitrogen 15 mg/dL (8-26) Creatinine 0.7 mg/dL (0.7-1.3) Estimated GFR (Cockcroft-Gault) 146.9 BUN/Creatinine Ratio 21 (6-20) Glucose Level 299 mg/dL (70-99) Calcium Level 8.9 mg/dL (8.5-10.1) Total Bilirubin 0.5 mg/dL (0.2-1.0) Aspartate Amino Transf (AST/SGOT) 20 U/L (15-37) Alanine Aminotransferase (ALT/SGPT) 21 U/L (16-63) Alkaline Phosphatase 156 U/L (46-116) Total Protein 8.1 g/dL (6.4-8.2) Albumin 3.0 g/dL (3.4-5.0) Albumin/Globulin Ratio 0.6 (1.0-1.7) Test 06/03/18 07:18 Glucose (Fingerstick) 291 mg/dL (70-99) Meds Current Medications Cefdinir (Omnicef) 300 mg BID PO ; Start 06/03/18 at 21:00; Status UNV Insulin Human Lispro (HumaLOG) 0-20 UNITS QIDACHS SQ Last administered on at 09:35; Start 06/02/18 at 11:30 Insulin Human Lispro (HumaLOG) 60 units TIDWMEALS SQ Last administered on at 08:00; Start 06/02/18 at 12:00 Assessment Assessment 1. Cellulitis of both lower extremities, worse on the right side. 2. Chronic edema of both lower extremities. 3. Possible deep venous thrombosis of both lower extremities. 4. 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 5. Morbid obesity. 6. Obstructive sleep apnea, CPAP noncompliant. 7. Diabetes mellitus type 2, insulin dependent, noncompliant. 8. Chronic obstructive pulmonary disease. 9. Slow transit constipation. 10. Osteoarthritis of both knees. 11. History of right lower lung nodule. 12. Gastroesophageal reflux disease with esophagitis. 13. Mixed hyperlipidemia. 14. Noncompliance. 15. Anemia of chronic disease. 16. Coronary artery disease with 2-vessel coronary artery disease, status post drug-eluting stent of the right coronary artery on 04/03/2017. PLAN: I will obtain venous Doppler of both lower extremities, consulted Dr. Rayray Torres for Infectious Disease evaluation and management. I also discussed the case with him. He has been started on IV vancomycin. I will also consult Dr. Jimenez for Cardiology evaluation and management. For details, please refer to the orders. Prognosis of this patient is poor due to his multiple medical problems. Patient remains very noncompliant.Remains noncompliant. Cellulitis legs- improving.Venous dopplers negative. Discussed with Dr. Torres. Fluid retention - multifactorial. Pulmoonary nodules- discussed with patient. Repeat CT scan in [address] chest 1. Diffuse groundglass airspace opacities identified in the bilateral lungs with air trapping in the bibasilar lungs could be groundglass infiltrates or edema. 2. Small nodules identified in the bibasilar lungs with the largest measuring 6 mm in the right lower lobe and left lower lobe of the lung. Follow-up per Fleischner Society guidelines with a follow-up CT in 6-12 months. 3. There is minimal prominence of the bilateral hilar region. Examination limited due to lack of IV contrast. Differential includes lymphadenopathy, prominent vasculature or hilar masses. D/w Dr.Samir Torres and . Advised pt to watch diet and lose wt. Diabetes- not controlled but improving. Obstructive sleep apnea- patient is promising to get to sleep study and CPAP. Noncompliance. Patient is advised to follow instructions. Plan Plan For more details regarding further plans, please refer to the orders. PADDY LINCOLN MD Jun 03, 2018 10:18
[2018-06-03 11:00] VITALS: BP 133/70
--- NOTE | 2018-06-03 11:37 | CONS ---
DATE OF CONSULTATION: 06/02/2018 ATTENDING PHYSICIAN: Dr. Jean. REASON FOR CONSULTATION: The patient seen in pulmonary consultation at the request of Dr. Jean for abnormal CT chest. History of KATIUSKA. HISTORY OF PRESENT ILLNESS: The patient is a 48-year-old that failed outpatient therapy for cellulitis. He has been seen by Infectious Disease Service and is currently on some antibiotics. He was complaining of increasing cough. He is down to smoking half a pack of cigarettes a day. He was also slightly short of breath. CT chest was obtained revealing some evidence of ground glass airspace opacities compatible with air trapping, possibly mild edema. There was also a small nodule identified in bibasilar lungs, largest measuring 6 mm. In comparison to a 01/16/2018 film, these nodules were new. There was also prominent mediastinal lymphadenopathy. The patient denies hemoptysis. No fever, chills or night sweats. PAST MEDICAL HISTORY: Remarkable for: 1. Morbid obesity. 2. Type 2 diabetes. 3. Hypertension. 4. Hyperlipidemia. 5. Chronic heart failure, previous myocardial infarction. He had status post PCI to the RCA. 6. COPD. 7. Tobacco dependence. 8. Clinical presentation compatible with obstructive sleep apnea. The patient has not undergone a polysomnogram yet. 9. Chronic lower extremity cellulitis. 10. Cardiomyopathy, ejection fraction 15-20%. 11. Hyperlipidemia. PAST SURGICAL HISTORY: Previous arthroscopic knee surgery. SOCIAL HISTORY: He continues to smoke half a pack of cigarettes a day. FAMILY HISTORY: No early lung disorders. ALLERGIES: AUGMENTIN. MEDICATIONS: List was reviewed. REVIEW OF SYSTEMS: CONSTITUTIONAL: No fever or chills. EYES: No change in visual acuity. HEENT: No nasal congestion, no sore throat. PULMONARY: As indicated above. CARDIOVASCULAR: No chest pain. No pressure. GASTROINTESTINAL: No nausea, vomiting, diarrhea. GENITOURINARY: No dysuria or frequency. MUSCULOSKELETAL: No localized muscle aches or joint pains. SKIN: No new skin rashes. NEUROLOGIC: No headaches, diplopia or blurred vision. PHYSICAL EXAMINATION: VITAL SIGNS: Since admission, he has been afebrile. HEENT: Eyes, the sclerae were nonicteric. NECK: Jugular venous distention could not be assessed secondary to body habitus. BMI is 47. LUNGS: Adequate airway flow. CARDIOVASCULAR: Distant heart sounds with S1, S2, no S3. ABDOMEN: Soft, obese. EXTREMITIES: Cellulitis. LABORATORY DATA: Reviewed. White count was not elevated. Hemoglobin and hematocrit were noted. Chemistries were noted. CT as indicated above. IMPRESSION: 1. Clinical presentation compatible with obstructive sleep apnea. The patient was due to undergo polysomnogram in the outpatient department, not clear exactly what transpired. He has not done so yet. 2. Abnormal CT chest as described above, revealing ground glass opacities compatible with edema and possibly air trappin. Acute exacerbation of chronic obstructive pulmonary disease. 4. Morbid obesity. 5. Right lower leg cellulitis. 6. Tobacco dependence. 7. Abnormal CT chest revealing a new pulmonary nodule, the patient will require repeat CT chest in 6 months. 8. Cardiomyopathy, ejection fraction was 15-20%, with previous history of myocardial infarction. 9. Acute on chronic systolic and diastolic heart failure. PLAN: 1. Continue antibiotics per ID. 2. I will have my office follow up on rescheduling his polysomnogram. 3. The patient is instructed on the importance of discontinuing tobacco use. 4. Continue to diurese. 5. Follow up cardiology input. Dr. Jean, I do appreciate the privilege in sharing in the patient's care. PHILIP CABALLERO MD DR: CORY/jody JOB#: [id number] / [id number]
[2018-06-03 15:00] VITALS: BP 137/75
--- NOTE | 2018-06-03 16:35 | NUR ---
ALERT AND ORIENTED X 4, CONGESTED COUGH WITH CLEAR SPUTUM. REMAINS ON 2LNC. OCCASIONAL C/O BILATERAL LEG PAIN, PARTIAL RELIEF NOTED WITH PO PAIN MEDICATION. OOB AD MARITZA, SHOWER AND TOTAL LINEN CHANGE. GOOD APPETITE AND FLUID INTAKE, NO REPORT OF N/V. INSULIN GIVEN BEFORE EVERY MEAL, CHECK PAPER MAR FOR ADMINISTRATION AND GOODTECH WAS DOWN FOR SEVERAL HOURS.
--- NOTE | 2018-06-03 16:53 | PDOC ---
CARDIO Progress Notes Date and Time Date of Service 06/03/2018 Time of Evaluation 1310 Subjective Subjective: No Chest Pain, No Palpitations, Other (SOA better) Vitals Vitals Vital Signs Date Time Temp Pulse Resp B/P (MAP) Pulse Ox O2 Delivery O2 Flow Rate FiO2 06/03/18 15:17 91 Nasal Cannula 2.0 06/03/18 15:00 98.4 103 20 137/75 (95) 98.4 Weight Weight [ ] Input and Output Intake and Output Intake and Output 06/03/18 07:00 Intake Total 680 ml Output Total 200 ml Balance 480 ml Intake Oral 680 ml Output Urine Total 200 ml # Voids 5 Laboratory Labs Laboratory Tests Test 06/02/18 20:28 06/03/18 06:46 06/03/18 07:18 06/03/18 11:27 Glucose (Fingerstick) 103 mg/dL (70-99) 291 mg/dL (70-99) 294 mg/dL (70-99) Sodium Level 139 mmol/L (136-145) Potassium Level 4.1 mmol/L (3.5-5.1) Chloride Level 102 mmol/L (98-107) Carbon Dioxide Level 28 mmol/L (21-32) Anion Gap 9 (6-14) Blood Urea Nitrogen 15 mg/dL (8-26) Creatinine 0.7 mg/dL (0.7-1.3) Estimated GFR (Cockcroft-Gault) 146.9 BUN/Creatinine Ratio 21 (6-20) Glucose Level 299 mg/dL (70-99) Calcium Level 8.9 mg/dL (8.5-10.1) Total Bilirubin 0.5 mg/dL (0.2-1.0) Aspartate Amino Transf (AST/SGOT) 20 U/L (15-37) Alanine Aminotransferase (ALT/SGPT) 21 U/L (16-63) Alkaline Phosphatase 156 U/L (46-116) Total Protein 8.1 g/dL (6.4-8.2) Albumin 3.0 g/dL (3.4-5.0) Albumin/Globulin Ratio 0.6 (1.0-1.7) Microbiology Micro Microbiology 06/01/18 Blood Culture - Preliminary, Resulted NO GROWTH AFTER 2 DAYS Physical Exam HEENT: Neck Supple W Full Motion Chest: Symmetric LUNGS: Other (diminished bases) Heart: S1S2, RRR Abdomen: Soft N/T, Other (obese) Extremities: Other (1+ bilateral LE pitting edema) Neurology: alert, oriented, follow commands Assessment Assessment 1. RLE cellulitis; per ID. 2. AECOPD with continued tobaccoism 3. Acute on chronic combined systolic/diastolic CHF; appears better 4. CAD; prior stent as noted above. Clinically stable 5. ICM: NYHA 1-2 EF at 25% 6. HTN: controlled 7. DM2/HLP: BS uncontrolled. per PCP 8. Morbid obesity, KATIUSKA; still waiting for CPAP Recommendations 1. Continue Lasix, additional IV PRN 2. Continue with secondary prevention measures. 3. Will need outpt CPAP/BiPAP pulmonary following 4. Encouraged lifestyle modifications, wt loss, diet compliance. Smoking cessation 5. FR2L, strict I & O, daily wt. 6. Will reevaluate for entresto as an outpt basis 7. Will consider for AICD as an outpt for primary prevention CORINA ANN APRN Jun 03, 2018 16:53
--- NOTE | 2018-06-03 17:35 | PDOC ---
PULMONARY PROGRESS NOTES Subjective PT NOT MORE SOA Vitals Vital Signs Date Time Temp Pulse Resp B/P (MAP) Pulse Ox O2 Delivery O2 Flow Rate FiO2 06/03/18 15:17 91 Nasal Cannula 2.0 06/03/18 15:00 98.4 103 20 137/75 (95) 98.4 ROS: No Nausea, No Chest Pain, No Abdominal Pain, No Increase Cough General: Alert HEENT: Other Lungs: Clear Cardiovascular: S1, S2 Abdomen: Soft, Non-tender Neuro Exam: Alert Extremities: Other (CELLULITIS) Skin: Warm Labs Laboratory Tests Test 06/01/18 20:24 06/01/18 20:40 06/02/18 06:40 06/02/18 07:04 Glucose (Fingerstick) 288 mg/dL (70-99) 282 mg/dL (70-99) Vancomycin Level Trough 15.1 mcg/mL (10.0-20.0) Vancomycin Last Dose Date Unk Vancomycin Last Dose Time Unk White Blood Count 7.8 x10^3/uL (4.0-11.0) Red Blood Count 4.58 x10^6/uL (4.30-5.70) Hemoglobin 11.0 g/dL (13.0-17.5) Hematocrit 36.2 % (39.0-53.0) Mean Corpuscular Volume 79 fL (79-100) Mean Corpuscular Hemoglobin 24 pg (25-35) Mean Corpuscular Hemoglobin Concent 31 g/dL (31-37) Red Cell Distribution Width 19.4 % (11.5-14.5) Platelet Count 211 x10^3/uL (140-400) Neutrophils (%) (Auto) 66 % (31-73) Lymphocytes (%) (Auto) 17 % (24-48) Monocytes (%) (Auto) 11 % (0-9) Eosinophils (%) (Auto) 5 % (0-3) Basophils (%) (Auto) 1 % (0-3) Neutrophils # (Auto) 5.2 x10^3uL (1.8-7.7) Lymphocytes # (Auto) 1.3 x10^3/uL (1.0-4.8) Monocytes # (Auto) 0.8 x10^3/uL (0.0-1.1) Eosinophils # (Auto) 0.4 x10^3/uL (0.0-0.7) Basophils # (Auto) 0.1 x10^3/uL (0.0-0.2) Sodium Level 139 mmol/L (136-145) Potassium Level 4.4 mmol/L (3.5-5.1) Chloride Level 103 mmol/L (98-107) Carbon Dioxide Level 27 mmol/L (21-32) Anion Gap 9 (6-14) Blood Urea Nitrogen 19 mg/dL (8-26) Creatinine 0.9 mg/dL (0.7-1.3) Estimated GFR (Cockcroft-Gault) 109.9 BUN/Creatinine Ratio 21 (6-20) Glucose Level 321 mg/dL (70-99) Calcium Level 8.6 mg/dL (8.5-10.1) Magnesium Level 1.9 mg/dL (1.8-2.4) Total Bilirubin 0.5 mg/dL (0.2-1.0) Aspartate Amino Transf (AST/SGOT) 22 U/L (15-37) Alanine Aminotransferase (ALT/SGPT) 19 U/L (16-63) Alkaline Phosphatase 142 U/L (46-116) Total Protein 7.6 g/dL (6.4-8.2) Albumin 2.7 g/dL (3.4-5.0) Albumin/Globulin Ratio 0.6 (1.0-1.7) Test 06/02/18 11:03 06/02/18 16:15 06/02/18 20:28 06/03/18 06:46 Glucose (Fingerstick) 256 mg/dL (70-99) 157 mg/dL (70-99) 103 mg/dL (70-99) Sodium Level 139 mmol/L (136-145) Potassium Level 4.1 mmol/L (3.5-5.1) Chloride Level 102 mmol/L (98-107) Carbon Dioxide Level 28 mmol/L (21-32) Anion Gap 9 (6-14) Blood Urea Nitrogen 15 mg/dL (8-26) Creatinine 0.7 mg/dL (0.7-1.3) Estimated GFR (Cockcroft-Gault) 146.9 BUN/Creatinine Ratio 21 (6-20) Glucose Level 299 mg/dL (70-99) Calcium Level 8.9 mg/dL (8.5-10.1) Total Bilirubin 0.5 mg/dL (0.2-1.0) Aspartate Amino Transf (AST/SGOT) 20 U/L (15-37) Alanine Aminotransferase (ALT/SGPT) 21 U/L (16-63) Alkaline Phosphatase 156 U/L (46-116) Total Protein 8.1 g/dL (6.4-8.2) Albumin 3.0 g/dL (3.4-5.0) Albumin/Globulin Ratio 0.6 (1.0-1.7) Test 06/03/18 07:18 06/03/18 11:27 06/03/18 17:14 Glucose (Fingerstick) 291 mg/dL (70-99) 294 mg/dL (70-99) 308 mg/dL (70-99) Laboratory Tests Test 06/02/18 20:28 06/03/18 06:46 06/03/18 07:18 06/03/18 11:27 Glucose (Fingerstick) 103 mg/dL (70-99) 291 mg/dL (70-99) 294 mg/dL (70-99) Sodium Level 139 mmol/L (136-145) Potassium Level 4.1 mmol/L (3.5-5.1) Chloride Level 102 mmol/L (98-107) Carbon Dioxide Level 28 mmol/L (21-32) Anion Gap 9 (6-14) Blood Urea Nitrogen 15 mg/dL (8-26) Creatinine 0.7 mg/dL (0.7-1.3) Estimated GFR (Cockcroft-Gault) 146.9 BUN/Creatinine Ratio 21 (6-20) Glucose Level 299 mg/dL (70-99) Calcium Level 8.9 mg/dL (8.5-10.1) Total Bilirubin 0.5 mg/dL (0.2-1.0) Aspartate Amino Transf (AST/SGOT) 20 U/L (15-37) Alanine Aminotransferase (ALT/SGPT) 21 U/L (16-63) Alkaline Phosphatase 156 U/L (46-116) Total Protein 8.1 g/dL (6.4-8.2) Albumin 3.0 g/dL (3.4-5.0) Albumin/Globulin Ratio 0.6 (1.0-1.7) Test 06/03/18 17:14 Glucose (Fingerstick) 308 mg/dL (70-99) Medications Active Scripts Medications Dose Route/Sig Max Daily Dose Days Date Category Bevespi Aerosphere Inhaler (Glycopyrrolate/Formoterol Fum) 10.7 Gm Hfa.aer.ad 10.7 Gm IH DAILY 05/31/18 Reported Lantus Solostar (Insulin Glargine,Hum.rec.anlog) 100 Unit/1 Ml Insuln.pen 80 Unit SQ BID 05/31/18 Reported Humalog (Insulin Lispro) 100 Unit/1 Ml Vial 50 Unit SQ TIDAC 01/19/18 Reported Wellbutrin Xl (Bupropion Hcl) 300 Mg Tab.er.24h 1 Tab PO DAILY 01/19/18 Rx Furosemide 80 Mg Tablet 80 Mg PO DAILY 30 01/19/18 Rx Duoneb 0.5-3(2.5) Mg/3 Ml (Albuterol/Ipratropium) 3 Ml Ampul.neb 3 Ml NEB RTQID 30 01/19/18 Rx Levaquin (Levofloxacin) 500 Mg Tablet 500 Mg PO DAILY06 5 01/19/18 Rx Carvedilol (Carvedilol) 6.25 Mg Tablet 1 Tab PO BID 01/15/18 Reported Pravastatin Sodium 20 Mg Tablet 1 Tab PO QHS 01/15/18 Reported Singulair Tablet (Montelukast Sodium) 10 Mg Tablet 10 Mg PO HS 01/15/18 Reported Famotidine 20 Mg Tablet 20 Mg PO HS 01/15/18 Reported Dexilant (Dexlansoprazole) 60 Mg Cap.mp 1 Cap PO DAILY 01/15/18 Reported Linzess (Linaclotide) 145 Mcg Capsule 145 Mcg PO DAILY 01/15/18 Reported [Nicotine 21MG] 1 PATCH Patch 1 Patch TD DAILY 04/04/17 Rx Glucophage (Metformin Hcl) 1,000 Mg Tablet 1,000 Mg PO BIDWMEALS 04/04/17 Rx Lisinopril 20 Mg Tablet 20 Mg PO DAILY 04/04/17 Rx Aspirin Ec (Aspirin) 81 Mg Tablet. 81 Mg PO DAILYWBKFT 04/04/17 Rx Impression . IMPRESSION: 1. Clinical presentation compatible with obstructive sleep apnea. The patient was due to undergo polysomnogram in the outpatient department, not clear exactly what transpired. He has not done so yet. 2. Abnormal CT chest as described above, revealing ground glass opacities compatible with edema and possibly air trappin. Acute exacerbation of chronic obstructive pulmonary disease. 4. Morbid obesity. 5. Right lower leg cellulitis. 6. Tobacco dependence. 7. Abnormal CT chest revealing a new pulmonary nodule, the patient will require repeat CT chest in 6 months. 8. Cardiomyopathy, ejection fraction was 15-20%, with previous history of myocardial infarction. 9. Acute on chronic systolic and diastolic heart failure. Plan . D/W WITH MY STAFF WILL FOLLOW UP ON AUTOCPAP PT DID NOT SHOW UP FOR FOLLOW UP APPT ANTIBX PER ID PHILIP CABALLERO MD Jun 03, 2018 17:34
[2018-06-03 19:00] VITALS: BP 124/67
[2018-06-03] MEDS: MONTELUKAST SODIUM 10 MG TABLET. PO SCH (20:22)
[2018-06-03] MEDS: CEFDINIR 300 MG CAPSULE PO SCH (20:22)
[2018-06-03] MEDS: ATORVASTATIN CALCIUM 10 MG TABLET. PO SCH (20:22)
[2018-06-03] MEDS: NICOTINE 14MG PATCH. TD PRN (21:05)
[2018-06-03 23:03] VITALS: BP 141/89
[2018-06-04] MEDS: diphenhydrAMINE HCL 25 MG CAPSULE PO PRN (02:53)
[2018-06-04 03:22] VITALS: BP 107/57
[2018-06-04 07:00] VITALS: BP 150/88
[2018-06-04] MEDS: IPRATRPIUM/ALBUTEROL 0.5/2.5MG 3 ML NEBU. NEB SCH ×2 (07:13→11:52)
[2018-06-04] MEDS: NON FORMULARY ITEM (Linaclotide (Linzess) 145 MCG) PO SCH (07:30)
[2018-06-04] MEDS: PANTOPRAZOLE 40 MG TABLET.DR. PO SCH (07:44)
[2018-06-04] MEDS: LACTOBACILLUS RHAMNOSUS GG 1 CAPSULE. PO SCH (08:11)
[2018-06-04] MEDS: metFORMIN 500 MG TABLET PO SCH (08:11)
[2018-06-04] MEDS: CEFDINIR 300 MG CAPSULE PO SCH (08:11)
[2018-06-04] MEDS: buPROPion XL 150 MG TAB.ER.24H. PO SCH (08:11)
[2018-06-04] MEDS: ASPIRIN ENTERIC COATED 81 MG TABLET.DR. PO SCH (08:11)
[2018-06-04] MEDS: CARVEDILOL 6.25 MG TABLET. PO SCH (08:12)
[2018-06-04] MEDS: LISINOPRIL 20 MG TABLET PO SCH (08:12)
[2018-06-04] MEDS: FUROSEMIDE 80 MG TABLET. PO SCH (08:12)
[2018-06-04] MEDS: NICOTINE 14MG PATCH. TD PRN (08:13)
[2018-06-04] MEDS: INSULIN LISPRO 300 UNITS/3 ML INSULN.PEN. SQ SCH ×3 (08:20→12:14)
[2018-06-04] MEDS: INSULIN GLARGINE 300 UNITS/3 ML INSULN.PEN. SQ SCH (08:21)
--- NOTE | 2018-06-04 09:00 | PDOC ---
PULMONARY PROGRESS NOTES Subjective PT NOT MORE SOA Vitals Vital Signs Date Time Temp Pulse Resp B/P (MAP) Pulse Ox O2 Delivery O2 Flow Rate FiO2 06/04/18 08:12 101 150/88 06/04/18 07:11 91 Nasal Cannula 2.0 06/04/18 07:00 97.6 22 97.6 ROS: No Nausea, No Chest Pain, No Abdominal Pain, No Increase Cough General: Alert HEENT: Other Lungs: Clear Cardiovascular: S1, S2 Abdomen: Soft, Non-tender Neuro Exam: Alert Extremities: Other (CELLULITIS) Skin: Warm Labs Laboratory Tests Test 06/02/18 11:03 06/02/18 16:15 06/02/18 20:28 06/03/18 06:46 Glucose (Fingerstick) 256 mg/dL (70-99) 157 mg/dL (70-99) 103 mg/dL (70-99) Sodium Level 139 mmol/L (136-145) Potassium Level 4.1 mmol/L (3.5-5.1) Chloride Level 102 mmol/L (98-107) Carbon Dioxide Level 28 mmol/L (21-32) Anion Gap 9 (6-14) Blood Urea Nitrogen 15 mg/dL (8-26) Creatinine 0.7 mg/dL (0.7-1.3) Estimated GFR (Cockcroft-Gault) 146.9 BUN/Creatinine Ratio 21 (6-20) Glucose Level 299 mg/dL (70-99) Calcium Level 8.9 mg/dL (8.5-10.1) Total Bilirubin 0.5 mg/dL (0.2-1.0) Aspartate Amino Transf (AST/SGOT) 20 U/L (15-37) Alanine Aminotransferase (ALT/SGPT) 21 U/L (16-63) Alkaline Phosphatase 156 U/L (46-116) Total Protein 8.1 g/dL (6.4-8.2) Albumin 3.0 g/dL (3.4-5.0) Albumin/Globulin Ratio 0.6 (1.0-1.7) Test 06/03/18 07:18 06/03/18 11:27 06/03/18 17:14 06/03/18 20:21 Glucose (Fingerstick) 291 mg/dL (70-99) 294 mg/dL (70-99) 308 mg/dL (70-99) 278 mg/dL (70-99) Test 06/04/18 07:48 Glucose (Fingerstick) 231 mg/dL (70-99) Laboratory Tests Test 06/03/18 11:27 06/03/18 17:14 06/03/18 20:21 06/04/18 07:48 Glucose (Fingerstick) 294 mg/dL (70-99) 308 mg/dL (70-99) 278 mg/dL (70-99) 231 mg/dL (70-99) Medications Active Scripts Medications Dose Route/Sig Max Daily Dose Days Date Category Bevespi Aerosphere Inhaler (Glycopyrrolate/Formoterol Fum) 10.7 Gm Hfa.aer.ad 10.7 Gm IH DAILY 05/31/18 Reported Lantus Solostar (Insulin Glargine,Hum.rec.anlog) 100 Unit/1 Ml Insuln.pen 80 Unit SQ BID 05/31/18 Reported Humalog (Insulin Lispro) 100 Unit/1 Ml Vial 50 Unit SQ TIDAC 01/19/18 Reported Wellbutrin Xl (Bupropion Hcl) 300 Mg Tab.er.24h 1 Tab PO DAILY 01/19/18 Rx Furosemide 80 Mg Tablet 80 Mg PO DAILY 30 01/19/18 Rx Duoneb 0.5-3(2.5) Mg/3 Ml (Albuterol/Ipratropium) 3 Ml Ampul.neb 3 Ml NEB RTQID 30 01/19/18 Rx Levaquin (Levofloxacin) 500 Mg Tablet 500 Mg PO DAILY06 5 01/19/18 Rx Carvedilol (Carvedilol) 6.25 Mg Tablet 1 Tab PO BID 01/15/18 Reported Pravastatin Sodium 20 Mg Tablet 1 Tab PO QHS 01/15/18 Reported Singulair Tablet (Montelukast Sodium) 10 Mg Tablet 10 Mg PO HS 01/15/18 Reported Famotidine 20 Mg Tablet 20 Mg PO HS 01/15/18 Reported Dexilant (Dexlansoprazole) 60 Mg Cap.mp 1 Cap PO DAILY 01/15/18 Reported Linzess (Linaclotide) 145 Mcg Capsule 145 Mcg PO DAILY 01/15/18 Reported [Nicotine 21MG] 1 PATCH Patch 1 Patch TD DAILY 04/04/17 Rx Glucophage (Metformin Hcl) 1,000 Mg Tablet 1,000 Mg PO BIDWMEALS 04/04/17 Rx Lisinopril 20 Mg Tablet 20 Mg PO DAILY 04/04/17 Rx Aspirin Ec (Aspirin) 81 Mg Tablet.dr 81 Mg PO DAILYWBKFT 04/04/17 Rx Impression . IMPRESSION: 1. Clinical presentation compatible with obstructive sleep apnea. The patient was due to undergo polysomnogram in the outpatient department, not clear exactly what transpired. He has not done so yet. 2. Abnormal CT chest as described above, revealing ground glass opacities compatible with edema and possibly air trappin. Acute exacerbation of chronic obstructive pulmonary disease. 4. Morbid obesity. 5. Right lower leg cellulitis. 6. Tobacco dependence. 7. Abnormal CT chest revealing a new pulmonary nodule, the patient will require repeat CT chest in 6 months. 8. Cardiomyopathy, ejection fraction was 15-20%, with previous history of myocardial infarction. 9. Acute on chronic systolic and diastolic heart failure. Plan . D/W WITH MY STAFF WILL FOLLOW UP ON AUTOCPAP PT DID NOT SHOW UP FOR FOLLOW UP APPT ANTIBX PER PHILIP JANG MD Jun 04, 2018 09:00
--- NOTE | 2018-06-04 09:35 | PDOC ---
Infectious Disease Note Subjective Subjective pt is feeling better ROS ROS no n/v/d/sob Vital Sign Vital Signs Vital Signs Date Time Temp Pulse Resp B/P (MAP) Pulse Ox O2 Delivery O2 Flow Rate FiO2 06/04/18 08:12 101 150/88 06/04/18 08:00 Room Air 06/04/18 07:11 91 2.0 06/04/18 07:00 97.6 22 97.6 Physical Exam PHYSICAL EXAM GENERAL: Alert, oriented gentleman, not in distress. VITAL SIGNS: Stable, afebrile. HEENT: NAD. NECK: Supple, no JVP, no lymphadenopathy. LUNGS: Clear. HEART: S1, S2 regular. ABDOMEN: Benign. EXTREMITIES: Bilateral pitting edema present. Bilateral skin discoloration with stasis dermatitis present. He does have more discoloration of the right leg than the left leg, both are bit red. The patient does have Homans' positive on the left leg and the right leg has some induration into the right posterior thigh. The patient has no open wound. NEUROLOGICAL: The patient is neurologically alert, awake and appropriate. No focal neurologic deficit. Labs Lab Laboratory Tests Test 06/03/18 11:27 06/03/18 17:14 06/03/18 20:21 06/04/18 07:48 Glucose (Fingerstick) 294 mg/dL (70-99) 308 mg/dL (70-99) 278 mg/dL (70-99) 231 mg/dL (70-99) Micro Microbiology 06/01/18 Blood Culture - Preliminary, Resulted NO GROWTH AFTER 1 DAY Objective Assessment Rt leg injury with cellulitis improving Left leg swelling and pain neg for DVT Morbid obesity DM HTN COPD Plan Plan of Care po omnicef 5 days pt has mostly chronic changes leg elevation pt/ot dieting d/w dr Ted TRENT,CUCO Ford MD Jun 04, 2018 09:35
[2018-06-04] MEDS ORDERED: CEFD300C PO (10:05)
[2018-06-04] MEDS ORDERED: INSU100V SQ (10:05)
[2018-06-04] MEDS ORDERED: INSU100I13 SQ (10:05)
--- NOTE | 2018-06-04 10:06 | DISCH ---
DISCHARGE INSTRUCTIONS Condition on Discharge Condition on Discharge: Stable Activity After Discharge Activity Instructions for Disc: Activity as tolerated Driving Instructions after Dis: Do not drive today Weight Bearing Status after Di: No restrictions Diet after Discharge Diet after Discharge: Cardiac (ADA), Diabetic No Calorie Level Diet Texture: Regular Checks after Discharge Checks after discharge: Check blood press - daily, Check blood sugar, ac/hs, Weigh Yourself Daily Contacting the [facility] after DC Call your doctor for: Concerns you may have Follow-Up Follow up with: Dr.Pratip Lincoln in 5 days Treatment/Equipment after DC Adaptive Equipment Issued: None Discharge Respiratory Equipmen: Nebulizer PADDY LINCOLN MD Jun 04, 2018 10:06
[2018-06-04 11:00] VITALS: BP 112/73
--- NOTE | 2018-06-04 11:02 | PDOC3 ---
IM DISCHARGE SUMMARY Date of Admission Date of Admission Date of Admission: May 31, 2018 at 21:38 Date of Discharge Date of Discharge June 04, 2018 Consults Consults Lauro Guzman MD, Rayray Torres M.D., Dr. Rodriguez. Labs Labs Laboratory Tests Test 06/01/18 11:48 06/01/18 16:37 06/01/18 20:24 06/01/18 20:40 Glucose (Fingerstick) 347 mg/dL (70-99) 254 mg/dL (70-99) 288 mg/dL (70-99) Vancomycin Level Trough 15.1 mcg/mL (10.0-20.0) Vancomycin Last Dose Date Unk Vancomycin Last Dose Time Unk Test 06/02/18 06:40 06/02/18 07:04 06/02/18 11:03 06/02/18 16:15 White Blood Count 7.8 x10^3/uL (4.0-11.0) Red Blood Count 4.58 x10^6/uL (4.30-5.70) Hemoglobin 11.0 g/dL (13.0-17.5) Hematocrit 36.2 % (39.0-53.0) Mean Corpuscular Volume 79 fL (79-100) Mean Corpuscular Hemoglobin 24 pg (25-35) Mean Corpuscular Hemoglobin Concent 31 g/dL (31-37) Red Cell Distribution Width 19.4 % (11.5-14.5) Platelet Count 211 x10^3/uL (140-400) Neutrophils (%) (Auto) 66 % (31-73) Lymphocytes (%) (Auto) 17 % (24-48) Monocytes (%) (Auto) 11 % (0-9) Eosinophils (%) (Auto) 5 % (0-3) Basophils (%) (Auto) 1 % (0-3) Neutrophils # (Auto) 5.2 x10^3uL (1.8-7.7) Lymphocytes # (Auto) 1.3 x10^3/uL (1.0-4.8) Monocytes # (Auto) 0.8 x10^3/uL (0.0-1.1) Eosinophils # (Auto) 0.4 x10^3/uL (0.0-0.7) Basophils # (Auto) 0.1 x10^3/uL (0.0-0.2) Sodium Level 139 mmol/L (136-145) Potassium Level 4.4 mmol/L (3.5-5.1) Chloride Level 103 mmol/L (98-107) Carbon Dioxide Level 27 mmol/L (21-32) Anion Gap 9 (6-14) Blood Urea Nitrogen 19 mg/dL (8-26) Creatinine 0.9 mg/dL (0.7-1.3) Estimated GFR (Cockcroft-Gault) 109.9 BUN/Creatinine Ratio 21 (6-20) Glucose Level 321 mg/dL (70-99) Calcium Level 8.6 mg/dL (8.5-10.1) Magnesium Level 1.9 mg/dL (1.8-2.4) Total Bilirubin 0.5 mg/dL (0.2-1.0) Aspartate Amino Transf (AST/SGOT) 22 U/L (15-37) Alanine Aminotransferase (ALT/SGPT) 19 U/L (16-63) Alkaline Phosphatase 142 U/L (46-116) Total Protein 7.6 g/dL (6.4-8.2) Albumin 2.7 g/dL (3.4-5.0) Albumin/Globulin Ratio 0.6 (1.0-1.7) Glucose (Fingerstick) 282 mg/dL (70-99) 256 mg/dL (70-99) 157 mg/dL (70-99) Test 06/02/18 20:28 06/03/18 06:46 06/03/18 07:18 06/03/18 11:27 Glucose (Fingerstick) 103 mg/dL (70-99) 291 mg/dL (70-99) 294 mg/dL (70-99) Sodium Level 139 mmol/L (136-145) Potassium Level 4.1 mmol/L (3.5-5.1) Chloride Level 102 mmol/L (98-107) Carbon Dioxide Level 28 mmol/L (21-32) Anion Gap 9 (6-14) Blood Urea Nitrogen 15 mg/dL (8-26) Creatinine 0.7 mg/dL (0.7-1.3) Estimated GFR (Cockcroft-Gault) 146.9 BUN/Creatinine Ratio 21 (6-20) Glucose Level 299 mg/dL (70-99) Calcium Level 8.9 mg/dL (8.5-10.1) Total Bilirubin 0.5 mg/dL (0.2-1.0) Aspartate Amino Transf (AST/SGOT) 20 U/L (15-37) Alanine Aminotransferase (ALT/SGPT) 21 U/L (16-63) Alkaline Phosphatase 156 U/L (46-116) Total Protein 8.1 g/dL (6.4-8.2) Albumin 3.0 g/dL (3.4-5.0) Albumin/Globulin Ratio 0.6 (1.0-1.7) Test 06/03/18 17:14 06/03/18 20:21 06/04/18 07:48 Glucose (Fingerstick) 308 mg/dL (70-99) 278 mg/dL (70-99) 231 mg/dL (70-99) Brief hospital course Brief hospital course This 48-year-old male who has been treated in the office recently on several occasions for cellulitis of the right lower extremity with chronic edema of both lower extremities was initially treated with Augmentin that caused rash and subsequently he took Levaquin for 10 days and then he ran out of it and then he got worse again and then started doxycycline that did not help and now is on Bactrim-DS for 4 days and felt that he was not improving, so he came to the Emergency Room. His blood sugars are also extremely high here and he admits that he did not take any insulin for 4 days because he could not afford it. For more details regarding the past history, family history, social history, surgical history and other details, please refer to History and Physical. Venous Dopplers of both lower extremities were negative. consulted Dr. Rayray Torres for Infectious Disease evaluation and management. I also discussed the case with him. He has been started on IV vancomycin. I will also consult Dr. Jimenez for Cardiology evaluation and management. For details, please refer to the orders. Prognosis of this patient is poor due to his multiple medical problems. Patient remains very noncompliant.Remains noncompliant. Cellulitis legs- improving.Venous dopplers negative. Discussed with Dr. Torres. Patient responded well to IV vancomycin. The redness and swelling is much better. Discharged on Omnicef 300 mg twice daily for 1 week. Fluid retention - multifactorial. Somewhat better but patient remains noncompliant. Pulmoonary nodules- discussed with patient. Repeat CT scan in [address] chest 1. Diffuse groundglass airspace opacities identified in the bilateral lungs with air trapping in the bibasilar lungs could be groundglass infiltrates or edema. 2. Small nodules identified in the bibasilar lungs with the largest measuring 6 mm in the right lower lobe and left lower lobe of the lung. Follow-up per Fleischner Society guidelines with a follow-up CT in 6-12 months. 3. There is minimal prominence of the bilateral hilar region. Examination limited due to lack of IV contrast. Differential includes lymphadenopathy, prominent vasculature or hilar masses. D/w Dr.Samir Torres and . Advised pt to watch diet and lose wt. Diabetes- not controlled . She keeps eating a lot of fast food while in the hospital. I'll increase the Lantus 200 units twice daily and Humalog to 70 units subcutaneous 3 times a day. Obstructive sleep apnea- patient is promising to get to sleep study and CPAP. Noncompliance. Patient is advised to follow instructions. She was doing well I will discharge him. Long-term as well as short-term prognosis of this patient is very poor. See me in the office in 5 days. Medications Medications reviewed and reconciled for discharge. Allergy Allergies Coded Allergies Type Severity Reaction Last Updated Verified amoxicillin Allergy Intermediate 06/04/18 Yes clavulanic acid Allergy Intermediate 06/04/18 Yes Follow up in 5 days. DISPOSITION: Home Comments Discharge Management - 35 minutes. For other details please refer to discharge instructions PADDY LINCOLN MD Jun 04, 2018 11:02
[2018-06-04] MEDS ORDERED: GABA300C18 PO (11:05)
[2018-06-04] MEDS ORDERED: INSULIN LISPRO 300 UNITS/3 ML INSULN.PEN. SQ SCH (12:00)
--- NOTE | 2018-06-04 14:27 | NUR ---
Discharge Note: GILBERTO BREWER Discharge instructions and discharge home medications reviewed with Patient and a copy given. All questions have been answered and understanding verbalized. The following instructions and handouts were given: discharge instructions, new prescriptions, education and follow up recommendations. Discontinued lines and drains: Peripheral IV discontinued intact. Patient discharged to Home or Self Care with Family Member via Wheelchair off unit by NURSE RN BSN.
[2018-06-04] MEDS ORDERED: INSULIN GLARGINE 300 UNITS/3 ML INSULN.PEN. SQ SCH (21:00)
== END 2018-06-04 14:28 | disposition home or self-care (01) | DRG 602 ==
LOC: ER 18:16 → UNMERGE 21:38 → MERGE 21:38 → 5 NORTH 21:38
PROVIDERS: ADMIT Internal Medicine; ATTEND Internal Medicine
DX: L03.115 Cellulitis of right lower limb (principal); I50.43 Acute on chronic combined systolic (congestive) and diastolic (congestive) heart failure; J44.1 Chronic obstructive pulmonary disease with (acute) exacerbation; Z68.44 Body mass index [BMI] 60.0-69.9, adult; I42.9 Cardiomyopathy, unspecified; F41.9 Anxiety disorder, unspecified; I11.0 Hypertensive heart disease with heart failure; L03.116 Cellulitis of left lower limb; M17.0 Bilateral primary osteoarthritis of knee; D63.8 Anemia in other chronic diseases classified elsewhere; E66.01 Morbid (severe) obesity due to excess calories; M06.9 Rheumatoid arthritis, unspecified; K21.0 Gastro-esophageal reflux disease with esophagitis; K59.01 Slow transit constipation; E11.9 Type 2 diabetes mellitus without complications; E78.2 Mixed hyperlipidemia; F17.210 Nicotine dependence, cigarettes, uncomplicated; G47.33 Obstructive sleep apnea (adult) (pediatric); I25.10 Atherosclerotic heart disease of native coronary artery without angina pectoris; I25.2 Old myocardial infarction; Z90.49 Acquired absence of other specified parts of digestive tract; Z87.01 Personal history of pneumonia (recurrent); Z79.4 Long term (current) use of insulin; Z82.49 Family history of ischemic heart disease and other diseases of the circulatory system; Z87.11 Personal history of peptic ulcer disease; Z91.19 Patient's noncompliance with other medical treatment and regimen; Z95.5 Presence of coronary angioplasty implant and graft; Z88.1 Allergy status to other antibiotic agents; Z88.8 Allergy status to other drugs, medicaments and biological substances
CPT/HCPCS: 36415; 71045; 71250; 80053; 80202; 81001; 82962; 83605; 83735; 83880; 84484; 85025; 85610; 87040; 93005; 93970; 94640; 94760; J1815; J1940; J3010; J3370; J7040; J7620; Q0163; 99285-25

== ENCOUNTER 2018-07-07 17:07 | Inpatient (IN) | payer MEDICARE ==
[~2018-07-07] VITALS: Ht 180.3 cm; Wt 196.9 kg
[~2018-07-07 17:07] MED LIST changes: +CEFD300C PO; +GABA300C18 PO; +GLYC10.7 IH
[2018-07-07] MEDS ORDERED: ONDANSETRON PF 4 MG/2 ML VIAL. IV ONE (18:15)
[2018-07-07] MEDS ORDERED: MORPHINE SULFATE 4 MG/ML VIAL. IV ONE (18:15)
[2018-07-07 18:41] LABS: BASO # 0.1 x10^3/uL (0.0-0.2); BASO % 1 % (0-3); EOS # 0.4 x10^3/uL (0.0-0.7); EOS % 6 % (0-3); HEMATOCRIT 33.6 % (39.0-53.0); HEMOGLOBIN 10.3 g/dL (13.0-17.5); LYMPH # 1.2 x10^3/uL (1.0-4.8); LYMPH % 17 % (24-48); MEAN CORPUSCULAR HEMOGLOBIN 25 pg (25-35); MEAN CORPUSCULAR HGB CONC 31 g/dL (31-37); MEAN CORPUSCULAR VOLUME 81 fL (79-100); MONO % 13 % (0-9); NEUT # 4.8 x10^3uL (1.8-7.7); NEUT % 64 % (31-73); PLATELET COUNT 287 x10^3/uL (140-400); RED BLOOD COUNT 4.17 x10^6/uL (4.30-5.70); RED CELL DISTRIBUTION WIDTH 20.9 % (11.5-14.5); WHITE BLOOD COUNT 7.5 x10^3/uL (4.0-11.0)
[2018-07-07] MEDS ORDERED: VANCOMYCIN PER PHARMACY MC PRN (18:45)
[2018-07-07] MEDS ORDERED: VANCOMYCIN 2 GM in IV NORMAL SALINE 500ML BAG 500 ML IV ONE (19:00)
[2018-07-07 19:01] LABS: CALCIUM 8.6 mg/dL (8.5-10.1); CREATININE 0.8 mg/dL (0.7-1.3); GFR 125.9; POTASSIUM 4.4 mmol/L (3.5-5.1)
[2018-07-07 19:08] LABS: ALBUMIN 2.9 g/dL (3.4-5.0); ALBUMIN/GLOBULIN RATIO 0.5 (1.0-1.7); MAGNESIUM 2.2 mg/dL (1.8-2.4); TOTAL BILIRUBIN 0.9 mg/dL (0.2-1.0); TOTAL PROTEIN 8.6 g/dL (6.4-8.2)
[2018-07-07 19:12] LABS: ANISOCYTOSIS MOD; HYPOCHROMIA MOD; PLT ESTIMATE ADEQUATE (ADEQUATE); POLYCHROMASIA MOD
--- NOTE | 2018-07-07 19:17 | PHYS DOC ---
Past Medical History Past Medical History: Anemia, Asthma, CAD, CHF, Diabetes-Type II, High Cholesterol, Hypertension, ND, Other Additional Past Medical Histor: chronic lyphadema. morbid obesity (SAMEER PERALTA APRN) Past Surgical History: Appendectomy, Other Additional Past Surgical Histo: cyst removal, knee arthroscope x3 (SAMEER PERALTA APRN) Additional Information: 6 cigarettes daily Alcohol Use: None Drug Use: None (SAMEER PERALTA APRN) Adult General Chief Complaint Chief Complaint: CELLULITIS HPI HPI 48 y/o male presents to ER for c/o increased swelling/cellulitis in bilat. LEs. He reports he had recently been admitted for similar sxs and he had improved sxs after discharge. He reports in past week his sxs have started to worsen again causing increased pain. He reports he has felt feverish with intermittent nausea. He denies V/D episodes. He reports he can walk but it has become more difficult with leg swelling and increased pain with weight bearing. Pt denies CP /SOA or flu like illness. He denies urinary sxs. He denies swelling has extended to scrotum/testicles- denying pain. Pt's registration initially has caused it difficult to view pt's previous records- RN was able to locate pt's records and reports shows he was admitted to [facility] on 05/31/28 and had bilat. LE dopplers which were neg. (SAMEER PERALTA APRN) Review of Systems Review of Systems Constitutional: Denies fever or chills [] Eyes: Denies change in visual acuity, redness, or eye pain [] HENT: Denies nasal congestion or sore throat [] Respiratory: Denies cough or shortness of breath [] Cardiovascular: No additional information not addressed in HPI [] GI: Denies abdominal pain, nausea, vomiting, bloody stools or diarrhea [] : Denies dysuria or hematuria [] Musculoskeletal: Denies back pain or joint pain [] Integument: Denies rash or skin lesions [] Neurologic: Denies headache, focal weakness or sensory changes [] Endocrine: Denies polyuria or polydipsia [] All other systems were reviewed and found to be within normal limits, except as documented in this note. (REFFITT,SAMEER M SURVEY RESEARCH CENTER DIRECTOR) Current Medications Current Medications Current Medications Medications (Trade) Dose Ordered Sig/Linden Start Time Stop Time Status Last Admin Dose Admin Morphine Sulfate (Morphine Sulfate) 4 mg 1X ONCE 07/07/18 18:15 07/07/18 18:16 DC 07/07/18 18:38 4 MG Ondansetron HCl (Zofran) 4 mg 1X ONCE 07/07/18 18:15 07/07/18 18:16 DC 07/07/18 18:36 4 MG Vancomycin HCl (Vanco Per Pharmacy) 1 each PRN DAILY PRN 07/07/18 18:45 07/08/18 11:22 DC 07/07/18 21:02 1 EACH Vancomycin HCl 2 gm/Sodium Chloride 500 ml @ 250 mls/hr 1X ONCE 07/07/18 19:00 07/07/18 20:59 DC 07/07/18 18:54 250 MLS/HR (SKIP AMATO DO) Physical Exam Physical Exam Constitutional: Well developed, well nourished, no acute distress, non-toxic appearance. [] HENT: Normocephalic, atraumatic, oropharynx moist, no oral exudates, nose normal. [] Eyes: Pupils equal, conjunctiva normal, no discharge. [] Neck: Normal range of motion, no tenderness, supple, no stridor. [] Cardiovascular: Heart rate regular rhythm, no murmur [] Lungs & Thorax: Bilateral breath sounds clear to auscultation- diminished in bases. Resp. equal/nonlabored Abdomen: Bowel sounds normal, soft/morbidly obese, no tenderness. exam with Process Project Engineer at bedside- no scrotal/testicular pain on palp. Scrotum soft with no skin discoloration- no rash/lesions in groin or penile discharge. Skin: Warm, dry Extremities: Bilat. lower extremities from upper thigh to feet with 2-3+ nonpitting edema as skin is tight/hard on palp. Cellulitic appearance with glossy/erythema. Difficult to palp. pulses with swelling. ROM is decreased in knee/ankle/feet. From pt's records he has hx of chronic lymphedema and he is reporting swelling to be increased in bilat. LE with increased tenderness on palp. of extremities Neurologic: Alert and oriented X 3, normal motor function, normal sensory function, no focal deficits noted. [] Psychologic: Affect normal, judgement normal, mood normal. [] (REFFITT,SAMEER Eli APRN) Current Patient Data Vital Signs Vital Signs Date Time Temp Pulse Resp B/P (MAP) Pulse Ox O2 Delivery O2 Flow Rate FiO2 07/07/18 18:40 99 24 109/64 (79) 92 Room Air 07/07/18 17:45 98.1 98.1 (AMATO,SKIP R DO) Lab Values Laboratory Tests Test 07/07/18 18:25 White Blood Count 7.5 x10^3/uL (4.0-11.0) Red Blood Count 4.17 x10^6/uL (4.30-5.70) L Hemoglobin 10.3 g/dL (13.0-17.5) L Hematocrit 33.6 % (39.0-53.0) L Mean Corpuscular Volume 81 fL (79-100) Mean Corpuscular Hemoglobin 25 pg (25-35) Mean Corpuscular Hemoglobin Concent 31 g/dL (31-37) Red Cell Distribution Width 20.9 % (11.5-14.5) H Platelet Count 287 x10^3/uL (140-400) Neutrophils (%) (Auto) 64 % (31-73) Lymphocytes (%) (Auto) 17 % (24-48) L Monocytes (%) (Auto) 13 % (0-9) H Eosinophils (%) (Auto) 6 % (0-3) H Basophils (%) (Auto) 1 % (0-3) Neutrophils # (Auto) 4.8 x10^3uL (1.8-7.7) Lymphocytes # (Auto) 1.2 x10^3/uL (1.0-4.8) Monocytes # (Auto) 1.0 x10^3/uL (0.0-1.1) Eosinophils # (Auto) 0.4 x10^3/uL (0.0-0.7) Basophils # (Auto) 0.1 x10^3/uL (0.0-0.2) Platelet Estimate Adequate (ADEQUATE) Polychromasia Mod Hypochromasia Mod Anisocytosis Mod Sodium Level 140 mmol/L (136-145) Potassium Level 4.4 mmol/L (3.5-5.1) Chloride Level 104 mmol/L (98-107) Carbon Dioxide Level 26 mmol/L (21-32) Anion Gap 10 (6-14) Blood Urea Nitrogen 18 mg/dL (8-26) Creatinine 0.8 mg/dL (0.7-1.3) Estimated GFR (Cockcroft-Gault) 125.9 BUN/Creatinine Ratio 23 (6-20) H Glucose Level 89 mg/dL (70-99) Calcium Level 8.6 mg/dL (8.5-10.1) Magnesium Level 2.2 mg/dL (1.8-2.4) Total Bilirubin 0.9 mg/dL (0.2-1.0) Aspartate Amino Transferase (AST) 35 U/L (15-37) Alanine Aminotransferase (ALT) 24 U/L (16-63) Alkaline Phosphatase 270 U/L (46-116) H Total Protein 8.6 g/dL (6.4-8.2) H Albumin 2.9 g/dL (3.4-5.0) L Albumin/Globulin Ratio 0.5 (1.0-1.7) L Laboratory Tests 07/07/18 18:25 Laboratory Tests 07/07/18 18:25 (SKIP AMATO DO) EKG EKG [] (SAMEER PERALTA APRN) Radiology/Procedures Radiology/Procedures PROCEDURE: VENOUS LOWER EXT BILATERAL Ultrasound venous Doppler INDICATION:BILAT LEG SWELLING TECHNIQUE: Grayscale, color Doppler and spectral waveform ultrasound images of the bilateral lower extremities deep veins obtained. COMPARISON: None FINDINGS: The interrogated deep veins are compressible and demonstrate evidence of blood flow with normal respiratory variation and response to augmentation. IMPRESSION: Difficult exam due to body habitus. Within this limitation, no apparent sonographic evidence of acute DVT of the bilateral lower extremity deep veins. Electronically signed by: Sukhjinder Jean DO (07/07/2018 8:17 PM) [facility] DICTATED and SIGNED BY: SUKHJINDER JEAN DO DATE: 07/07/182016 (SAMEER PERALTA APRN) Course & Med Decision Making Course & Med Decision Making Pertinent Labs and Imaging studies reviewed. (See chart for details) 1910: Spoke with Dr. Jean, patient's primary care physician and discussed patient's case and admit plan. Blood cultures were obtained. Patient was started on IV vancomycin while in the ER. WBCs were normal limits at 7.5 with NL lactic acid 1.5. Pt will have bilat. US of lower extremities with worsening sxs per Dr. Jean's request. Pt was provided with pain medication while in the ER. Will admit to Med/Surg for further care/monitoring. Will place consult for [facility] with admit orders. US report neg. for DVT on bilat. lower extremities. (SAMEER PERALTA APRN) Dragon Disclaimer Dragon Disclaimer This electronic medical record was generated, in whole or in part, using a voice recognition dictation system. (SAMEER PERALTA APRN) Departure Departure Impression: Primary Impression: Bilateral lower leg cellulitis Disposition: ADMITTED INPATIENT Admitting Physician: Paddy Jean (SAMEER PERALTA APRN) Condition: STABLE Referrals: PADDY JEAN MD (PCP) Attending Signature Attending Signature I have reviewed the PA/CYBER SYSTEMS OPERATIONS SPECIALIST's note and plan of care. I was available for consultation as needed during the patient's visit in the emergency department. I agree with the clinical impression, plan, and disposition. (SKIP AMATO DO) SAMEER PERALTA APRN Jul 07, 2018 19:16 SKIP AMATO DO Jul 26, 2018 13:13
--- NOTE | 2018-07-07 20:00 | NUR ---
The patient, GILBERTO SANFORD, 48 y/o, M admitted by PADDY LINCOLN MD, was given written information regarding hospital policies, unit procedures and contact persons. Valuables were checked and left with the patient.
[2018-07-07] MEDS ORDERED: ACETAMINOPHEN 325 MG TABLET. PO PRN (20:15)
--- NOTE | 2018-07-07 20:20 | RAD ---
Ultrasound venous Doppler INDICATION:BILAT LEG SWELLING TECHNIQUE: Grayscale, color Doppler and spectral waveform ultrasound images of the bilateral lower extremities deep veins obtained. COMPARISON: None FINDINGS: The interrogated deep veins are compressible and demonstrate evidence of blood flow with normal respiratory variation and response to augmentation. IMPRESSION: Difficult exam due to body habitus. Within this limitation, no apparent sonographic evidence of acute DVT of the bilateral lower extremity deep veins. Electronically signed by: Sukhjinder Jean DO (07/07/2018 8:17 PM) [facility]
--- NOTE | 2018-07-07 21:05 | NUR ---
Pharmacy Vancomycin Dosing Note S:Consulted to monitor and dose vancomycin started 07/07/18. O:GILBERTO SANFORD is a 48 year old M with Cellulitis . Height: 5 feet, 11 inches Weight: 200.252041 kg [place] Body Weight: 75.30 Adjusted Body Weight: Dosing Weight: Actual Other Antibiotics: ZOSYN LABS: Last BUN: Last Creatinine: 0.8 Creatinine Clearance: 200 mL/min Last WBC: 7.5 Last Procalcitonin: Tmax (past 24 hours): 98.1 Microbiology: I/O: Drug Levels: Last level: on at Last dose given 07/07/18 at 1900 Vancomycin Dosing: Loading Dose: 2000 mg x1 Dosing Weight: Actual Target Trough: 10-20 A: Based on: WEIGHT AND RENAL FUNCTION, GIVE VANCOMYCIN IVB 2GM; THEN P: 1. Begin Vancomycin 1750 mg IV q8h 2. Follow up Trough level on 07/08/18 at 1830 3. Pharmacy will continue to monitor, follow and adjust therapy as needed. KIP HODGE [facility], 07/07/18 [id number]
[2018-07-07 23:00] VITALS: BP 128/58
[2018-07-07] MEDS ORDERED: ALBUTEROL SULFATE 2.5 MG/3 ML NEBU. NEB PRN (23:15)
[2018-07-07] MEDS ORDERED: CLOP75TA PO (23:41)
[2018-07-07] MEDS ORDERED: PRAV20TA2 PO (23:41)
[2018-07-07] MEDS ORDERED: CETI10TA16 PO (23:41)
[2018-07-07] MEDS ORDERED: METF10007 PO (23:41)
[2018-07-07] MEDS ORDERED: LINZESS145 MCG PO (23:41)
[2018-07-07] MEDS ORDERED: BUME1TAB3 PO (23:41)
[2018-07-07] MEDS ORDERED: MONT10TA6 PO (23:41)
[2018-07-07] MEDS ORDERED: CARV6.25 PO (23:41)
[2018-07-07] MEDS ORDERED: DEXL60CA2 PO (23:41)
[2018-07-07] MEDS ORDERED: INSU300I SQ (23:41)
[2018-07-07] MEDS ORDERED: CARV6.2511 PO (23:41)
[2018-07-07] MEDS ORDERED: SULF1TAB24 PO (23:41)
[2018-07-07] MEDS ORDERED: DOXY100C14 PO (23:41)
[2018-07-07] MEDS ORDERED: LISI-334 PO (23:41)
[2018-07-08] VITALS (7 sets, daily range): BP systolic 82–149; BP diastolic 58–92
[2018-07-08] MEDS: MORPHINE SULFATE 4 MG/ML VIAL. IV PRN ×3 (02:10→19:08)
[2018-07-08] MEDS ORDERED: VANCOMYCIN 1.75 GM in IV NORMAL SALINE 500ML BAG 500 ML IV SCH (03:00)
[2018-07-08 06:33] LABS: BASO # 0.1 x10^3/uL (0.0-0.2); BASO % 1 % (0-3); EOS # 0.3 x10^3/uL (0.0-0.7); EOS % 4 % (0-3); HEMATOCRIT 35.2 % (39.0-53.0); HEMOGLOBIN 10.5 g/dL (13.0-17.5); LYMPH # 1.3 x10^3/uL (1.0-4.8); LYMPH % 15 % (24-48); MEAN CORPUSCULAR HEMOGLOBIN 25 pg (25-35); MEAN CORPUSCULAR HGB CONC 30 g/dL (31-37); MEAN CORPUSCULAR VOLUME 82 fL (79-100); MONO # 1.3 x10^3/uL (0.0-1.1); MONO % 15 % (0-9); NEUT # 5.9 x10^3uL (1.8-7.7); NEUT % 66 % (31-73); PLATELET COUNT 276 x10^3/uL (140-400); RED CELL DISTRIBUTION WIDTH 21.4 % (11.5-14.5); WHITE BLOOD COUNT 8.9 x10^3/uL (4.0-11.0)
[2018-07-08 06:39] LABS: ALBUMIN/GLOBULIN RATIO 0.5 (1.0-1.7); CALCIUM 8.3 mg/dL (8.5-10.1); CREATININE 1.5 mg/dL (0.7-1.3); MAGNESIUM 2.1 mg/dL (1.8-2.4); TOTAL PROTEIN 8.6 g/dL (6.4-8.2)
[2018-07-08 06:52] LABS: POTASSIUM 5.5 mmol/L (3.5-5.1)
[2018-07-08] MEDS ORDERED: INSULIN GLARGINE 300 UNITS/3 ML INSULN.PEN. SQ SCH ×3 (07:30→21:00)
[2018-07-08] MEDS ORDERED: CARVEDILOL 6.25 MG TABLET. PO SCH ×2 (08:00→11:00)
[2018-07-08] MEDS ORDERED: SMZ/TMP 800/160MG TABLET. PO SCH (09:00)
[2018-07-08] MEDS ORDERED: BUMETANIDE 1 MG TABLET. PO SCH (09:00)
[2018-07-08] MEDS ORDERED: DOXYCYCLINE MONOHYDRATE PO SCH (09:00)
[2018-07-08] MEDS: metFORMIN 500 MG TABLET PO SCH ×2 (09:05→17:56)
[2018-07-08] MEDS: PANTOPRAZOLE 40 MG TABLET.DR. PO SCH (09:05)
[2018-07-08] MEDS: CARVEDILOL 6.25 MG TABLET. PO SCH ×2 (09:05→19:14)
[2018-07-08] MEDS: CLOPIDOGREL BISULFATE 75 MG TABLET PO SCH (09:05)
[2018-07-08] MEDS: CETIRIZINE HCL 10 MG TABLET. PO SCH (09:06)
[2018-07-08] MEDS: LISINOPRIL 20 MG TABLET PO SCH (09:06)
[2018-07-08] MEDS ORDERED: FUROSEMIDE 80 MG TABLET. PO SCH (11:00)
--- NOTE | 2018-07-08 11:15 | PDOC ---
Provider Note Provider Note Patient seen. History and Physical dictated. See dictation#[id number] D/w family. PADDY LINCOLN MD Jul 08, 2018 11:15
[2018-07-08] MEDS: ONDANSETRON PF 4 MG/2 ML VIAL. IV PRN ×2 (11:30→19:26)
--- NOTE | 2018-07-08 11:34 | PDOC ---
Infectious Disease Note Vital Sign Vital Signs Vital Signs Date Time Temp Pulse Resp B/P (MAP) Pulse Ox O2 Delivery O2 Flow Rate FiO2 07/08/18 09:48 20 100 Nasal Cannula 3.0 07/08/18 09:06 82 127/84 07/08/18 07:00 97.2 97.2 Labs Lab Laboratory Tests Test 07/07/18 18:25 07/07/18 19:10 07/08/18 06:03 07/08/18 09:02 White Blood Count 7.5 x10^3/uL (4.0-11.0) 8.9 x10^3/uL (4.0-11.0) Red Blood Count 4.17 x10^6/uL (4.30-5.70) 4.30 x10^6/uL (4.30-5.70) Hemoglobin 10.3 g/dL (13.0-17.5) 10.5 g/dL (13.0-17.5) Hematocrit 33.6 % (39.0-53.0) 35.2 % (39.0-53.0) Mean Corpuscular Volume 81 fL (79-100) 82 fL (79-100) Mean Corpuscular Hemoglobin 25 pg (25-35) 25 pg (25-35) Mean Corpuscular Hemoglobin Concent 31 g/dL (31-37) 30 g/dL (31-37) Red Cell Distribution Width 20.9 % (11.5-14.5) 21.4 % (11.5-14.5) Platelet Count 287 x10^3/uL (140-400) 276 x10^3/uL (140-400) Neutrophils (%) (Auto) 64 % (31-73) 66 % (31-73) Lymphocytes (%) (Auto) 17 % (24-48) 15 % (24-48) Monocytes (%) (Auto) 13 % (0-9) 15 % (0-9) Eosinophils (%) (Auto) 6 % (0-3) 4 % (0-3) Basophils (%) (Auto) 1 % (0-3) 1 % (0-3) Neutrophils # (Auto) 4.8 x10^3uL (1.8-7.7) 5.9 x10^3uL (1.8-7.7) Lymphocytes # (Auto) 1.2 x10^3/uL (1.0-4.8) 1.3 x10^3/uL (1.0-4.8) Monocytes # (Auto) 1.0 x10^3/uL (0.0-1.1) 1.3 x10^3/uL (0.0-1.1) Eosinophils # (Auto) 0.4 x10^3/uL (0.0-0.7) 0.3 x10^3/uL (0.0-0.7) Basophils # (Auto) 0.1 x10^3/uL (0.0-0.2) 0.1 x10^3/uL (0.0-0.2) Platelet Estimate Adequate (ADEQUATE) Polychromasia Mod Hypochromasia Mod Anisocytosis Mod Sodium Level 140 mmol/L (136-145) 137 mmol/L (136-145) Potassium Level 4.4 mmol/L (3.5-5.1) 5.5 mmol/L (3.5-5.1) Chloride Level 104 mmol/L (98-107) 103 mmol/L (98-107) Carbon Dioxide Level 26 mmol/L (21-32) 26 mmol/L (21-32) Anion Gap 10 (6-14) 8 (6-14) Blood Urea Nitrogen 18 mg/dL (8-26) 24 mg/dL (8-26) Creatinine 0.8 mg/dL (0.7-1.3) 1.5 mg/dL (0.7-1.3) Estimated GFR (Cockcroft-Gault) 125.9 61.0 BUN/Creatinine Ratio 23 (6-20) 16 (6-20) Glucose Level 89 mg/dL (70-99) 129 mg/dL (70-99) Calcium Level 8.6 mg/dL (8.5-10.1) 8.3 mg/dL (8.5-10.1) Magnesium Level 2.2 mg/dL (1.8-2.4) 2.1 mg/dL (1.8-2.4) Total Bilirubin 0.9 mg/dL (0.2-1.0) 1.0 mg/dL (0.2-1.0) Aspartate Amino Transf (AST/SGOT) 35 U/L (15-37) 32 U/L (15-37) Alanine Aminotransferase (ALT/SGPT) 24 U/L (16-63) 25 U/L (16-63) Alkaline Phosphatase 270 U/L (46-116) 265 U/L (46-116) Total Protein 8.6 g/dL (6.4-8.2) 8.6 g/dL (6.4-8.2) Albumin 2.9 g/dL (3.4-5.0) 3.0 g/dL (3.4-5.0) Albumin/Globulin Ratio 0.5 (1.0-1.7) 0.5 (1.0-1.7) Lactic Acid Level 1.5 mmol/L (0.4-2.0) Glucose (Fingerstick) 171 mg/dL (70-99) Objective Assessment ? Left upper thigh cellulitis/yeast vs fluid retention NURY Fluid overload Augmentin allergy - rash Morbid Obesity DM Plan Plan of Care D/c Vanc with NURY Po Zyvox/Flagyl/Fluconazole IV Cefepime Needs diuresis and Cardiology eval BNP pending Await Renal eval Pulm eval pending and h/o small nodules F/u labs and cults Thank you # [id number] LISA GROVER MD Jul 08, 2018 11:34
[2018-07-08] MEDS: IPRATRPIUM/ALBUTEROL 0.5/2.5MG 3 ML NEBU. NEB SCH ×3 (11:39→21:27)
--- NOTE | 2018-07-08 11:56 | HP ---
ADMIT DATE: 07/07/2018 HISTORY OF PRESENT ILLNESS: This 48-year-old male presented to the Emergency Room with complaints of cellulitis of the legs. The patient recently was treated for cellulitis of the legs. The patient has been gaining weight and has been more short of breath. He complains of dyspnea on exertion, has not been able to walk, complains of joint pains and weakness. He also has chronic lymphedema and has been to the lymphedema specialist recently. The patient has a history of severe noncompliance. He complains of difficulty walking. He denies any fever, chills, abdominal pain. He has some nausea. He denies any sore throat. He does have joint pains including knee pains. Other systems reviewed and are negative. Because of the fluid retention, swelling of the legs and possibility of cellulitis of the legs, the patient has been admitted for further evaluation and management. The patient is known to have coronary artery disease and congestive heart failure with ejection fraction of 15-20%. PAST MEDICAL HISTORY: The patient has been admitted here for pneumonia, cellulitis of the right leg, COPD, morbid obesity, obstructive sleep apnea, congestive heart failure with ejection fraction of 15-20% with both diastolic and systolic congestive heart failure, history of eosinophilic pneumonia, hypertension, hyperlipidemia, steroid-induced hyperglycemia as well as noncompliance and insulin-dependent. The patient has a history of noncompliance with CPAP, he is supposed to be on CPAP with a 12 cm pressure; primary osteoarthritis of both knees; slow transit constipation; right lower lung pulmonary nodule; gastroesophageal reflux disease with esophagitis; history of noncompliance; mixed hyperlipidemia. He has morbid obesity. PAST SURGICAL HISTORY: The patient had arthroscopic knee surgery of the right knee and cyst removed from the right groin. The patient also has had appendectomy. SOCIAL HISTORY: The patient has a history of smoking; history of IV drug abuse, has been clean for 5 years. No history of alcoholism. FAMILY HISTORY: Reviewed and noncontributory. ALLERGIES: The patient is allergic to AUGMENTIN. MEDICATIONS: I reviewed the medications. PHYSICAL EXAMINATION: GENERAL: The patient is an elderly -Prydeinig male, who is alert, oriented and in moderate respiratory distress. VITAL SIGNS: Temperature 97.5, pulse 83 per minute, respirations 20 per minute, blood pressure 132/69 mmHg, on oxygen by nasal cannula 3 liters per minute. SKIN: Warm and dry. There is no cyanosis. EYES: Pupils reacting to light. Conjunctivae pale. Sclerae muddy. HEENT: Unremarkable. NECK: Supple. JVP normal. No thyromegaly. Trachea midline. LUNGS: Decreased breath sounds at bases. CARDIOVASCULAR SYSTEM: S1 and S2 regular. ABDOMEN: Soft. The patient is morbidly obese and has a large pannus with fluid retention in the lower part of the abdomen and also has the same issue in both thighs. EXTREMITIES: There is no swelling of the legs at this time. Slight redness noted in the thighs and legs, but this could be from stasis. He does have some stasis dermatitis. CENTRAL NERVOUS SYSTEM: Generalized weakness, alert and oriented. LAB FINDINGS AND DIAGNOSTIC STUDIES: WBC count 7.5, hemoglobin 10.3. Sodium 140, potassium 4.4, BUN is 18, creatinine 0.8. Yesterday, sodium was 137, potassium was 5.5, BUN 24, creatinine 1.5, glucose is 171. Total protein 8.6, albumin 3, magnesium 2.1. Lactic acid was 1.5. Bilateral lower extremity ultrasounds were negative for DVT. IMPRESSION: 1. Possible cellulitis of the lower extremities. 2. Chronic edema of both lower extremities and lymphedema. 3. 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 4. Respiratory failure, hypoxic. 5. Morbid obesity. 6. Obstructive sleep apnea, CPAP, noncompliant. 7. Diabetes mellitus type 2, insulin-dependent, noncompliant. 8. Chronic obstructive pulmonary disease. 9. Hyperkalemia. 10. Slow transit constipation. 11. Osteoarthritis of both knees. 12. Physical deconditioning. 13. History of right lower lung nodule. 14. Gastroesophageal reflux disease with esophagitis. 15. Mixed hyperlipidemia. 16. Noncompliance. 17. Anemia of chronic disease. 18. Coronary artery disease with 2-vessel coronary artery disease status post drug-eluting stent of the right coronary artery on 04/03/2017. PLAN: Venous Doppler of both lower extremities are negative. We will consult Dr. Valentine for infectious disease evaluation and management. Monitor renal function. Consult Dr. Boggs because unable to mobilize fluid due to third spacing. Consult Dr. Valladares as the patient would like to consider AICD and monitor congestive heart failure and treat congestive heart failure. Consult Dr. Willis for rehab evaluation and management. Prognosis of this patient is very poor. I will also order a chest x-ray, BNP and consult with Dr. Guzman. For details, please refer to the orders. PADDY LINCOLN MD DR: DEJAN/jody JOB#: [id number] / [id number]
[2018-07-08] MEDS ORDERED: ALBUTEROL SULFATE 2.5 MG/3 ML NEBU. NEB SCH (12:00)
--- NOTE | 2018-07-08 12:06 | NUR ---
SW following pt for anticipated dc needs. Chart reviewed. Pt lives at home with family and on oxygen. ID following pt. No SW needs or dc recommendations noted at this time. Will continue to evaluate dc needs. Addendum: 07/08/18 at 1622 by DANIELLE MELTON SW SW notified pt will need a walker with a seat. Rx for walker with documentation for walker need is required. Discussed with RN.
[2018-07-08] MEDS: NICOTINE 21MG PATCH. TD SCH (12:40)
[2018-07-08] MEDS: CEFEPIME HCL IV Push 2 GM VIAL. IVP SCH ×2 (12:42→21:57)
[2018-07-08] MEDS: LINEZOLID 600 MG TABLET PO SCH ×2 (12:46→21:56)
[2018-07-08] MEDS: FLUCONAZOLE 100 MG TABLET. PO SCH (12:47)
[2018-07-08] MEDS: ASPIRIN ENTERIC COATED 81 MG TABLET.DR. PO SCH (12:47)
[2018-07-08] MEDS: buPROPion XL 150 MG TAB.ER.24H. PO SCH (12:47)
[2018-07-08] MEDS: metroNIDAZOLE 500 MG TABLET PO SCH ×2 (12:47→21:55)
[2018-07-08] MEDS ORDERED: FUROSEMIDE 40 MG/4 ML VIAL. IVP ONE (13:00)
--- NOTE | 2018-07-08 13:00 | PDOC2 ---
CONSULT Date of Consult Date of Consult DATE: 07/08/18 TIME: 12:51 Reason for Consult Reason for Consult: NURY, HIGH K AND EDEMA Referring Physician Referring Physician: LATONIA Identification/Chief Complaint Chief Complaint LE SWELLING Source Source: Chart review, Patient History of Present Illness Reason for Visit: THIS IS A 48 YR OLD WITH C/O LE SWELLING AND INFECTION. APPARENTLY HAS LYMPHEDEMA AND LE INFECTION HX BUT NOW STATES THAT HIS LE SWELLING IS WORSE BILATERALLY AND NOW HE IS ADMITTED WITH BILATERAL LE CELLULITIS AND SEVERE ANASARCA. STATED THAT THE SWELLING IS MUCH WORSE IN THE LAST COUPLE MONTHS. HE DOES HAVE MORBID OBESITY AND AN EF IS ESTIMATED TO BE 15-20%. CR HAS BEEN NORMAL BUT TODAY IT IS 1.5 AND K IS 5.5. HE DOES TEND TO RUN A LOW BLOOD PRESSURE BUT NOT SYMPTOMATIC. NO HX OF ANY KIDNEY OR BLADDER SURGERIES HEMATURIA DYSURIA OR FREQUENCY NOTED. NO NEPHROTOXIN EXPOSURE NOTED Past Medical History Cardiovascular: CAD, CHF, HTN, Hyperlipidemia GI: Constipation Heme/Onc: Anemia NOS Musculoskeletal: Weakness Infectious disease: No pertinent hx Renal/: No pertinent hx Endocrine: Diabetes Dermatology: Other (STASIS LE) Past Surgical History Past Surgical History PTCA AND STENT Social History No ALCOHOL: rare Drugs: None Lives: with Family Current Problem List Problem List Problems Medical Problems: (1) Bilateral lower leg cellulitis Status: Acute Current Medications Current Medications Current Medications Ondansetron HCl (Zofran) 4 mg 1X ONCE IV Last administered on 07/07/18at 18:36; Start 07/07/18 at 18:15; Stop 07/07/18 at 18:16; Status DC Morphine Sulfate (Morphine Sulfate) 4 mg 1X ONCE IV Last administered on at 18:38; Start 07/07/18 at 18:15; Stop 07/07/18 at 18:16; Status DC Vancomycin HCl (Vanco Per Pharmacy) 1 each PRN DAILY PRN MC SEE COMMENTS Last administered on 07/07/18at 21:02; Start 07/07/18 at 18:45; Stop 07/08/18 at 11:22; Status DC Vancomycin HCl 2 gm/Sodium Chloride 500 ml @ 250 mls/hr 1X ONCE IV Last administered on 07/07/18at 18:54; Start 07/07/18 at 19:00; Stop 07/07/18 at 20:59; Status DC Morphine Sulfate (Morphine Sulfate) 4 mg PRN Q2HR PRN IV PAIN Last administered on 07/08/18 09:48; Start 07/07/18 at 20:15; Stop 07/08/18 at 20:14 Acetaminophen (Tylenol) 650 mg PRN Q4HRS PRN PO FEVER; Start 07/07/18 at 20:15; Stop 07/08/18 at 20:14 Vancomycin HCl 1.75 gm/Sodium Chloride 500 ml @ 250 mls/hr Q8H IV Last administered on 07/08/18 03:22; Start 07/08/18 at 03:00; Stop 07/08/18 at 11:22; Status DC Vancomycin HCl (Vancomycin Trough Level) 1 each 1X ONCE MC ; Start 07/08/18 at 18:30; Stop 07/08/18 at 18:30; Status DC Albuterol Sulfate (Ventolin Neb Soln) 2.5 mg PRN Q4HRS PRN NEB SHORTNESS OF BREATH Last administered on 07/08/18 08:01; Start 07/07/18 at 23:15 Bumetanide (Bumex) 1 mg DAILY PO Last administered on 07/08/18 09:06; Start 07/08/18 at 09:00 Carvedilol (Coreg) 6.25 mg BIDWMEALS PO Last administered on 07/08/18 09:05; Start 07/08/18 at 08:00 Carvedilol (Coreg) 6.25 mg BIDWMEALS PO ; Start 07/08/18 at 08:00; Status UNV Cetirizine HCl (ZyrTEC) 10 mg DAILY PO Last administered on 07/08/18 09:06; Start 07/08/18 at 09:00 Clopidogrel Bisulfate (Plavix) 75 mg DAILY PO Last administered on 07/08/18 09: 05; Start 07/08/18 at 09:00 Lisinopril (Prinivil) 20 mg DAILY PO Last administered on 07/08/18 09:06; Start 07/08/18 at 09:00 Trimethoprim/ Sulfamethoxazole (Bactrim Ds) 1 tab BID PO ; Start 07/08/18 at 09: 00; Status UNV Pantoprazole Sodium (Protonix) 40 mg DAILYAC PO Last administered on 4/3/19at 09:05; Start 07/08/18 at 07:30 Non-Formulary Medication (Doxycycline Monohydrate ) 1 cap BID PO ; Start at 09:00; Status UNV Insulin Glargine (Lantus) 80 units DAILYAC SQ Last administered on 07/08/18at 09: 42; Start 07/08/18 at 07:30; Stop 07/08/18 at 10:21; Status DC Non-Formulary Medication (Linaclotide (Linzess)) 145 mcg DAILY07 PO ; Start 07/08 at 07:00; Status UNV Metformin HCl (Glucophage) 1,000 mg BIDWMEALS PO Last administered on 07/08/18at 09:05; Start 07/08/18 at 08:00 Montelukast Sodium (Singulair) 10 mg QHS PO ; Start 07/08/18 at 21:00 Atorvastatin Calcium (Lipitor) 5 mg QHS PO ; Start 07/08/18 at 21:00 Insulin Glargine (Lantus) 80 units 1400 SQ ; Start 07/08/18 at 14:00; Status Cancel Aspirin (Ecotrin) 81 mg DAILYWBKFT PO Last administered on 07/08/18at 12:47; Start 07/08/18 at 11:00 Carvedilol (Coreg) 6.25 mg BIDWMEALS PO ; Start 07/08/18 at 11:00; Status Cancel Famotidine (Pepcid) 20 mg HS PO ; Start 07/08/18 at 21:00 Furosemide (Lasix) 80 mg DAILY PO Last administered on 07/08/18at 12:47; Start at 11:00 Gabapentin (Neurontin) 300 mg HS PO ; Start 07/08/18 at 21:00 Insulin Glargine (Lantus) 100 units BID SQ ; Start 07/08/18 at 21:00; Status Cancel Insulin Human Lispro (HumaLOG) 70 units TIDWMEALS SQ ; Start 07/08/18 at 12:00 Albuterol/ Ipratropium (Duoneb) 3 ml RTQID NEB Last administered on 07/08/18at 11 :39; Start 07/08/18 at 12:00 Bupropion HCl (Wellbutrin Xl) 300 mg DAILY PO Last administered on 07/08/18 12: 47; Start 07/08/18 at 11:00 Non-Formulary Medication (Dexlansoprazole (Dexilant)) 1 cap DAILY PO ; Start 07/09/18 at 09:00; Stop 07/09/18 at 09:00; Status DC Non-Formulary Medication (Glycopyrrolate/ Formoterol Fum (Bevespi Aerosphere Inhaler)) 10.7 gm DAILY IH ; Start 07/09/18 at 09:00; Status UNV Non-Formulary Medication (Linaclotide (Linzess)) 145 mcg DAILY PO ; Start at 09:00; Status UNV Non-Formulary Medication (Metformin Hcl (Glucophage)) 1,000 mg BIDWMEALS PO ; Start 07/08/18 at 17:00; Status UNV Non-Formulary Medication (Montelukast Sodium (Singulair Tablet)) 10 mg HS PO ; Start 07/08/18 at 21:00; Status UNV Non-Formulary Medication (Pravastatin Sodium ) 1 tab QHS PO ; Start 07/08/18 at 21:00; Status UNV Insulin Glargine (Lantus) 80 units BID SQ ; Start 07/08/18 at 21:00 Ondansetron HCl (Zofran) 4 mg PRN Q6HRS PRN IV NAUSEA/VOMITING Last administered on 07/08/18 11:30; Start 07/08/18 at 11:15 Nicotine (Nicoderm Cq 21mg) 1 patch DAILY TD Last administered on 07/08/18 12: 40; Start 07/08/18 at 11:30 Albuterol Sulfate (Ventolin Neb Soln) 2.5 mg RTQID NEB ; Start 07/08/18 at 12:00 ; Stop 07/08/18 at 12:01; Status DC Linezolid (Zyvox) 600 mg BID PO Last administered on 07/08/18 12:46; Start 07/08 at 12:00 Metronidazole (Flagyl) 500 mg Q12HR PO Last administered on 07/08/18 12:47; Start 07/08/18 at 12:00 Fluconazole (Diflucan) 100 mg DAILY PO Last administered on 07/08/18 12:47; Start 07/08/18 at 12:00 Cefepime HCl (Maxipime) 2 gm Q12HR IVP Last administered on 07/08/18at 12:42; Start 07/08/18 at 12:00 Diclofenac Sodium (Voltaren) 1 chung BID TP ; Start 07/08/18 at 21:00; Status UNV Active Scripts Active Gabapentin (Gabapentin) 300 Mg Capsule 300 Mg PO HS 30 Days Cefdinir 300 Mg Capsule 300 Mg PO BID 7 Days Lantus Solostar (Insulin Glargine,Hum.rec.anlog) 100 Unit/1 Ml Insuln.pen 100 Unit SQ BID Humalog (Insulin Lispro) 100 Unit/1 Ml Vial 70 Unit SQ TIDAC 30 Days Wellbutrin Xl (Bupropion Hcl) 300 Mg Tab.er.24h 1 Tab PO DAILY Furosemide 80 Mg Tablet 80 Mg PO DAILY 30 Days Duoneb 0.5-3(2.5) Mg/3 Ml (Albuterol/Ipratropium) 3 Ml Ampul.neb 3 Ml NEB RTQID 30 Days Glucophage (Metformin Hcl) 1,000 Mg Tablet 1,000 Mg PO BIDWMEALS Lisinopril 20 Mg Tablet 20 Mg PO DAILY Aspirin Ec (Aspirin) 81 Mg Tablet. 81 Mg PO DAILYWBKFT Reported Bactrim Ds Tablet (Sulfamethoxazole/Trimethoprim) 1 Each Tablet 1 Tab PO BID Lisinopril 20 Mg Tablet 1 Tab PO DAILY Clopidogrel (Clopidogrel Bisulfate) 75 Mg Tablet 1 Tab PO DAILY Toujeo Solostar (Insulin Glargine,Hum.rec.anlog) 300 Unit/1 Ml Insuln.pen 300 Unit SQ BID Metformin Hcl 1,000 Mg Tablet 1,000 Mg PO BIDWMEALS Singulair Tablet (Montelukast Sodium) 10 Mg Tablet 1 Tab PO DAILY Coreg (Carvedilol) 6.25 Mg Tablet 6.25 Mg PO BIDWMEALS Pravastatin Sodium 20 Mg Tablet 1 Tab PO DAILY Cetirizine Hcl 10 Mg Tablet 1 Tab PO DAILY Bumetanide 1 Mg Tablet 1 Tab PO DAILY Linzess (Linaclotide) 145 Mcg Capsule 145 Mcg PO DAILY07 Dexilant (Dexlansoprazole) 60 Mg Cap. 1 Cap PO DAILY Doxycycline Monohydrate 100 Mg Capsule 1 Cap PO BID Bevespi Aerosphere Inhaler (Glycopyrrolate/Formoterol Fum) 10.7 Gm Hfa.aer.ad 10.7 Gm IH DAILY Carvedilol (Carvedilol) 6.25 Mg Tablet 1 Tab PO BID Pravastatin Sodium 20 Mg Tablet 1 Tab PO QHS Singulair Tablet (Montelukast Sodium) 10 Mg Tablet 10 Mg PO HS Famotidine 20 Mg Tablet 20 Mg PO HS Dexilant (Dexlansoprazole) 60 Mg Truman. 1 Cap PO DAILY Linzess (Linaclotide) 145 Mcg Capsule 145 Mcg PO DAILY Allergies Allergies: Coded Allergies: amoxicillin (Verified Allergy, Intermediate, 07/07/18) clavulanic acid (Verified Allergy, Intermediate, 07/07/18) ROS General: YES: Fatigue, Malaise, Appetite PSYCHOLOGICAL ROS: YES: Anxiety Eyes: Yes Decreased vision HEENT: YES: Heacaches Respiratory: YES: Cough, Orthopnea Cardiovascular: yes Edema Gastrointestinal: Yes Constipation Genitourinary: YES Other (NOCTURIA) Musculoskeletal: Yes Muscular Weakness Physical Exam General: Alert, Oriented X3, Cooperative, No acute distress HEENT: Atraumatic, PERRLA, EOMI, Mucous membr. moist/pink Lungs: Clear to auscultation Heart: Regular rate, Normal S1, Normal S2 Abdomen: Normal bowel sounds, Soft, No tenderness Extremities: No clubbing, Other (2-4+ EDEMA) Skin: No breakdown, Other (STASIS DISCOLOARATION BILATERALLY AND ERYTHEMA BILATERALLY IN LE) Neuro: Normal speech Psych/Mental Status: Mental status NL, Mood NL MUSCULOSKELETAL: No joint tenderness, No deformity Vitals VITALS Vital Signs Date Time Temp Pulse Resp B/P (MAP) Pulse Ox O2 Delivery O2 Flow Rate FiO2 07/08/18 11:41 84 102/59 (73) 07/08/18 11:40 97 Nasal Cannula 2.0 07/08/18 11:00 98.4 20 98.4 Labs Labs Laboratory Tests Test 07/07/18 18:25 07/07/18 19:10 07/08/18 06:03 07/08/18 09:02 White Blood Count 7.5 x10^3/uL (4.0-11.0) 8.9 x10^3/uL (4.0-11.0) Red Blood Count 4.17 x10^6/uL (4.30-5.70) 4.30 x10^6/uL (4.30-5.70) Hemoglobin 10.3 g/dL (13.0-17.5) 10.5 g/dL (13.0-17.5) Hematocrit 33.6 % (39.0-53.0) 35.2 % (39.0-53.0) Mean Corpuscular Volume 81 fL (79-100) 82 fL (79-100) Mean Corpuscular Hemoglobin 25 pg (25-35) 25 pg (25-35) Mean Corpuscular Hemoglobin Concent 31 g/dL (31-37) 30 g/dL (31-37) Red Cell Distribution Width 20.9 % (11.5-14.5) 21.4 % (11.5-14.5) Platelet Count 287 x10^3/uL (140-400) 276 x10^3/uL (140-400) Neutrophils (%) (Auto) 64 % (31-73) 66 % (31-73) Lymphocytes (%) (Auto) 17 % (24-48) 15 % (24-48) Monocytes (%) (Auto) 13 % (0-9) 15 % (0-9) Eosinophils (%) (Auto) 6 % (0-3) 4 % (0-3) Basophils (%) (Auto) 1 % (0-3) 1 % (0-3) Neutrophils # (Auto) 4.8 x10^3uL (1.8-7.7) 5.9 x10^3uL (1.8-7.7) Lymphocytes # (Auto) 1.2 x10^3/uL (1.0-4.8) 1.3 x10^3/uL (1.0-4.8) Monocytes # (Auto) 1.0 x10^3/uL (0.0-1.1) 1.3 x10^3/uL (0.0-1.1) Eosinophils # (Auto) 0.4 x10^3/uL (0.0-0.7) 0.3 x10^3/uL (0.0-0.7) Basophils # (Auto) 0.1 x10^3/uL (0.0-0.2) 0.1 x10^3/uL (0.0-0.2) Platelet Estimate Adequate (ADEQUATE) Polychromasia Mod Hypochromasia Mod Anisocytosis Mod Sodium Level 140 mmol/L (136-145) 137 mmol/L (136-145) Potassium Level 4.4 mmol/L (3.5-5.1) 5.5 mmol/L (3.5-5.1) Chloride Level 104 mmol/L (98-107) 103 mmol/L (98-107) Carbon Dioxide Level 26 mmol/L (21-32) 26 mmol/L (21-32) Anion Gap 10 (6-14) 8 (6-14) Blood Urea Nitrogen 18 mg/dL (8-26) 24 mg/dL (8-26) Creatinine 0.8 mg/dL (0.7-1.3) 1.5 mg/dL (0.7-1.3) Estimated GFR (Cockcroft-Gault) 125.9 61.0 BUN/Creatinine Ratio 23 (6-20) 16 (6-20) Glucose Level 89 mg/dL (70-99) 129 mg/dL (70-99) Calcium Level 8.6 mg/dL (8.5-10.1) 8.3 mg/dL (8.5-10.1) Magnesium Level 2.2 mg/dL (1.8-2.4) 2.1 mg/dL (1.8-2.4) Total Bilirubin 0.9 mg/dL (0.2-1.0) 1.0 mg/dL (0.2-1.0) Aspartate Amino Transf (AST/SGOT) 35 U/L (15-37) 32 U/L (15-37) Alanine Aminotransferase (ALT/SGPT) 24 U/L (16-63) 25 U/L (16-63) Alkaline Phosphatase 270 U/L (46-116) 265 U/L (46-116) Total Protein 8.6 g/dL (6.4-8.2) 8.6 g/dL (6.4-8.2) Albumin 2.9 g/dL (3.4-5.0) 3.0 g/dL (3.4-5.0) Albumin/Globulin Ratio 0.5 (1.0-1.7) 0.5 (1.0-1.7) Lactic Acid Level 1.5 mmol/L (0.4-2.0) IO-Qrh-O-Type Natriuretic Peptide 565 pg/mL (0-124) Glucose (Fingerstick) 171 mg/dL (70-99) Test 07/08/18 11:55 Glucose (Fingerstick) 121 mg/dL (70-99) Laboratory Tests Test 07/07/18 18:25 07/07/18 19:10 07/08/18 06:03 07/08/18 09:02 White Blood Count 7.5 x10^3/uL (4.0-11.0) 8.9 x10^3/uL (4.0-11.0) Red Blood Count 4.17 x10^6/uL (4.30-5.70) 4.30 x10^6/uL (4.30-5.70) Hemoglobin 10.3 g/dL (13.0-17.5) 10.5 g/dL (13.0-17.5) Hematocrit 33.6 % (39.0-53.0) 35.2 % (39.0-53.0) Mean Corpuscular Volume 81 fL (79-100) 82 fL (79-100) Mean Corpuscular Hemoglobin 25 pg (25-35) 25 pg (25-35) Mean Corpuscular Hemoglobin Concent 31 g/dL (31-37) 30 g/dL (31-37) Red Cell Distribution Width 20.9 % (11.5-14.5) 21.4 % (11.5-14.5) Platelet Count 287 x10^3/uL (140-400) 276 x10^3/uL (140-400) Neutrophils (%) (Auto) 64 % (31-73) 66 % (31-73) Lymphocytes (%) (Auto) 17 % (24-48) 15 % (24-48) Monocytes (%) (Auto) 13 % (0-9) 15 % (0-9) Eosinophils (%) (Auto) 6 % (0-3) 4 % (0-3) Basophils (%) (Auto) 1 % (0-3) 1 % (0-3) Neutrophils # (Auto) 4.8 x10^3uL (1.8-7.7) 5.9 x10^3uL (1.8-7.7) Lymphocytes # (Auto) 1.2 x10^3/uL (1.0-4.8) 1.3 x10^3/uL (1.0-4.8) Monocytes # (Auto) 1.0 x10^3/uL (0.0-1.1) 1.3 x10^3/uL (0.0-1.1) Eosinophils # (Auto) 0.4 x10^3/uL (0.0-0.7) 0.3 x10^3/uL (0.0-0.7) Basophils # (Auto) 0.1 x10^3/uL (0.0-0.2) 0.1 x10^3/uL (0.0-0.2) Platelet Estimate Adequate (ADEQUATE) Polychromasia Mod Hypochromasia Mod Anisocytosis Mod Sodium Level 140 mmol/L (136-145) 137 mmol/L (136-145) Potassium Level 4.4 mmol/L (3.5-5.1) 5.5 mmol/L (3.5-5.1) Chloride Level 104 mmol/L (98-107) 103 mmol/L (98-107) Carbon Dioxide Level 26 mmol/L (21-32) 26 mmol/L (21-32) Anion Gap 10 (6-14) 8 (6-14) Blood Urea Nitrogen 18 mg/dL (8-26) 24 mg/dL (8-26) Creatinine 0.8 mg/dL (0.7-1.3) 1.5 mg/dL (0.7-1.3) Estimated GFR (Cockcroft-Gault) 125.9 61.0 BUN/Creatinine Ratio 23 (6-20) 16 (6-20) Glucose Level 89 mg/dL (70-99) 129 mg/dL (70-99) Calcium Level 8.6 mg/dL (8.5-10.1) 8.3 mg/dL (8.5-10.1) Magnesium Level 2.2 mg/dL (1.8-2.4) 2.1 mg/dL (1.8-2.4) Total Bilirubin 0.9 mg/dL (0.2-1.0) 1.0 mg/dL (0.2-1.0) Aspartate Amino Transf (AST/SGOT) 35 U/L (15-37) 32 U/L (15-37) Alanine Aminotransferase (ALT/SGPT) 24 U/L (16-63) 25 U/L (16-63) Alkaline Phosphatase 270 U/L (46-116) 265 U/L (46-116) Total Protein 8.6 g/dL (6.4-8.2) 8.6 g/dL (6.4-8.2) Albumin 2.9 g/dL (3.4-5.0) 3.0 g/dL (3.4-5.0) Albumin/Globulin Ratio 0.5 (1.0-1.7) 0.5 (1.0-1.7) Lactic Acid Level 1.5 mmol/L (0.4-2.0) UH-Msz-Q-Type Natriuretic Peptide 565 pg/mL (0-124) Glucose (Fingerstick) 171 mg/dL (70-99) Test 07/08/18 11:55 Glucose (Fingerstick) 121 mg/dL (70-99) Assessment/Plan Assessment/Plan IMP LE CELLULITIS ANASARCA MORBID OBESITY CM WITH EF OF 15-20% HYPERKALEMIA MILD NURY KATIUSKA CHRONIC ANEMIA NON COMPLIANCE CAD WITH HX OF PTCA AND STENT PLAN CONT WITH BECKY-I ANTIBIOTICS IV LASIX AND ORAL THIAZIDE WILL FOLLOW D/W MIGUEL JAMIL MD Jul 08, 2018 13:00
[2018-07-08] MEDS: INSULIN LISPRO 300 UNITS/3 ML INSULN.PEN. SQ SCH ×2 (13:04→17:00)
--- NOTE | 2018-07-08 13:13 | PDOC2 ---
JUANY PETESR SPRUE CUTTING PRESS OPERATOR 07/08/18 1312: CARDIAC CONSULT DATE OF CONSULT Date of Consult DATE: 07/08/18 TIME: 13:10 REASON FOR CONSULT Reason for Consult: CHF REFERRING PHYSICIAN Referring Physician: Dr. Jean SOURCE Source: Chart review, Patient HISTORY OF PRESENT ILLNESS HISTORY OF PRESENT ILLNESS This is a 48 yo male, with a history of CAD, cardiomyopathy, and morbid obesity who is well known to our service from clinic and prior hospitalizations, who presented secondary to increasing lower extremity edema. History of chronic LE edema. Patient reports this has increased over the last couple of months. Much worse the last 5 days. Legs are extremely tight, painful. Edema is worse from knees up. Thighs are so swollen he is unable to walk and are compressing his scrotum. Does have redness under bilateral upper thighs. Doing have abdominal swelling as well. Also experiencing shortness of breath with minimal exertion; also worse the last 4-5 days. Occasionally experiencing pain in his central chest when he has persistent coughing. No dizziness, diaphoresis, palpitations, or nausea/vomiting. PAST MEDICAL HISTORY Past Medical History Cardiovascular: CAD, CHF (ICM), HTN, Hyperlipidemia Pulmonary: COPD, Other (KATIUSKA) GI: Peptic Ulcer disease Psych: Anxiety Musculoskeletal: Osteoarthritis, Other (morbid obesity) Rheumatologic: No pertinent hx Infectious disease: No pertinent hx ENT: Allergic Rhinitis Renal/: No pertinent hx Endocrine: Diabetes (2) Dermatology: No pertinent hx PAST SURGICAL HISTORY Past Surgical History Appendectomy, Arthroscopy (bilateral knee), Other (PCI/stent) FAMILY HISTORY Family History: Hypertension SOCIAL HISTORY Social History Smoke: <1 pack per day (>30 yrs) ALCOHOL: none Drugs: None Lives: with Family CURRENT MEDICATIONS CURRENT MEDICATIONS Current Medications Medications (Trade) Dose Ordered Sig/Linden Route PRN Reason Start Time Stop Time Status Last Admin Dose Admin Ondansetron HCl (Zofran) 4 mg 1X ONCE IV 07/07/18 18:15 07/07/18 18:16 DC 07/07/18 18:36 Morphine Sulfate (Morphine Sulfate) 4 mg 1X ONCE IV 07/07/18 18:15 07/07/18 18:16 DC 07/07/18 18:38 Vancomycin HCl (Vanco Per Pharmacy) 1 each PRN DAILY PRN MC SEE COMMENTS 07/07/18 18:45 07/08/18 11:22 DC 07/07/18 21:02 Vancomycin HCl 2 gm/Sodium Chloride 500 ml @ 250 mls/hr 1X ONCE IV 07/07/18 19:00 07/07/18 20:59 DC 07/07/18 18:54 Morphine Sulfate (Morphine Sulfate) 4 mg PRN Q2HR PRN IV PAIN 07/07/18 20:15 07/08/18 20:14 07/08/18 09:48 Vancomycin HCl 1.75 gm/Sodium Chloride 500 ml @ 250 mls/hr Q8H IV 07/08/18 03:00 07/08/18 11:22 DC 07/08/18 03:22 Albuterol Sulfate (Ventolin Neb Soln) 2.5 mg PRN Q4HRS PRN NEB SHORTNESS OF BREATH 07/07/18 23:15 07/08/18 08:01 Bumetanide (Bumex) 1 mg DAILY PO 07/08/18 09:00 07/08/18 13:02 DC 07/08/18 09:06 Carvedilol (Coreg) 6.25 mg BIDWMEALS PO 07/08/18 08:00 07/08/18 09:05 Cetirizine HCl (ZyrTEC) 10 mg DAILY PO 07/08/18 09:00 07/08/18 09:06 Clopidogrel Bisulfate (Plavix) 75 mg DAILY PO 07/08/18 09:00 07/08/18 09:05 Lisinopril (Prinivil) 20 mg DAILY PO 07/08/18 09:00 07/08/18 09:06 Pantoprazole Sodium (Protonix) 40 mg DAILYAC PO 07/08/18 07:30 07/08/18 09:05 Insulin Glargine (Lantus) 80 units DAILYAC SQ 07/08/18 07:30 07/08/18 10:21 DC 07/08/18 09:42 Metformin HCl (Glucophage) 1,000 mg BIDWMEALS PO 07/08/18 08:00 07/08/18 09:05 Aspirin (Ecotrin) 81 mg DAILYWBKFT PO 07/08/18 11:00 07/08/18 12:47 Furosemide (Lasix) 80 mg DAILY PO 07/08/18 11:00 07/08/18 13:02 DC 07/08/18 12:47 Insulin Human Lispro (HumaLOG) 70 units TIDWMEALS SQ 07/08/18 12:00 07/08/18 13:04 Albuterol/ Ipratropium (Duoneb) 3 ml RTQID NEB 07/08/18 12:00 07/08/18 11:39 Bupropion HCl (Wellbutrin Xl) 300 mg DAILY PO 07/08/18 11:00 07/08/18 12:47 Ondansetron HCl (Zofran) 4 mg PRN Q6HRS PRN IV NAUSEA/VOMITING 07/08/18 11:15 07/08/18 11:30 Nicotine (Nicoderm Cq 21mg) 1 patch DAILY TD 07/08/18 11:30 07/08/18 12:40 Linezolid (Zyvox) 600 mg BID PO 07/08/18 12:00 07/08/18 12:46 Metronidazole (Flagyl) 500 mg Q12HR PO 07/08/18 12:00 07/08/18 12:47 Fluconazole (Diflucan) 100 mg DAILY PO 07/08/18 12:00 07/08/18 12:47 Cefepime HCl (Maxipime) 2 gm Q12HR IVP 07/08/18 12:00 07/08/18 12:42 ALLERGIES ALLERGIES: Coded Allergies: amoxicillin (Verified Allergy, Intermediate, 07/07/18) clavulanic acid (Verified Allergy, Intermediate, 07/07/18) ROS Review of System 14 point ROS conducted with pertinent positives noted above in HPI. PHYSICAL EXAM PHYSICAL EXAM General: Alert, Oriented X3, Cooperative, mild distress HEENT: Atraumatic, Mucous membr. moist/pink Lungs: Other (diminished bases) Heart: Regular rate (SR), Other (distant heart tones) Extremities: No cyanosis, Other (1-2+ bilateral LE edema, significant, 2-3+ bilateral edema from knees up with abdomen.) Abdomen; obese, anasarca Skin: No breakdown, No significant lesion Neuro: Normal speech, Sensation intact Psych/Mental Status: Mental status NL, Mood NL MUSCULOSKELETAL: Osteoarthritic changes both hands VITALS VITALS Vital Signs Date Time Temp Pulse Resp B/P (MAP) Pulse Ox O2 Delivery O2 Flow Rate FiO2 07/08/18 11:41 84 102/59 (73) 07/08/18 11:40 97 Nasal Cannula 2.0 07/08/18 11:00 98.4 20 98.4 LABS Lab: Laboratory Tests Test 07/07/18 18:25 07/07/18 19:10 07/08/18 06:03 07/08/18 09:02 White Blood Count 7.5 x10^3/uL (4.0-11.0) 8.9 x10^3/uL (4.0-11.0) Red Blood Count 4.17 x10^6/uL (4.30-5.70) 4.30 x10^6/uL (4.30-5.70) Hemoglobin 10.3 g/dL (13.0-17.5) 10.5 g/dL (13.0-17.5) Hematocrit 33.6 % (39.0-53.0) 35.2 % (39.0-53.0) Mean Corpuscular Volume 81 fL (79-100) 82 fL (79-100) Mean Corpuscular Hemoglobin 25 pg (25-35) 25 pg (25-35) Mean Corpuscular Hemoglobin Concent 31 g/dL (31-37) 30 g/dL (31-37) Red Cell Distribution Width 20.9 % (11.5-14.5) 21.4 % (11.5-14.5) Platelet Count 287 x10^3/uL (140-400) 276 x10^3/uL (140-400) Neutrophils (%) (Auto) 64 % (31-73) 66 % (31-73) Lymphocytes (%) (Auto) 17 % (24-48) 15 % (24-48) Monocytes (%) (Auto) 13 % (0-9) 15 % (0-9) Eosinophils (%) (Auto) 6 % (0-3) 4 % (0-3) Basophils (%) (Auto) 1 % (0-3) 1 % (0-3) Neutrophils # (Auto) 4.8 x10^3uL (1.8-7.7) 5.9 x10^3uL (1.8-7.7) Lymphocytes # (Auto) 1.2 x10^3/uL (1.0-4.8) 1.3 x10^3/uL (1.0-4.8) Monocytes # (Auto) 1.0 x10^3/uL (0.0-1.1) 1.3 x10^3/uL (0.0-1.1) Eosinophils # (Auto) 0.4 x10^3/uL (0.0-0.7) 0.3 x10^3/uL (0.0-0.7) Basophils # (Auto) 0.1 x10^3/uL (0.0-0.2) 0.1 x10^3/uL (0.0-0.2) Platelet Estimate Adequate (ADEQUATE) Polychromasia Mod Hypochromasia Mod Anisocytosis Mod Sodium Level 140 mmol/L (136-145) 137 mmol/L (136-145) Potassium Level 4.4 mmol/L (3.5-5.1) 5.5 mmol/L (3.5-5.1) Chloride Level 104 mmol/L (98-107) 103 mmol/L (98-107) Carbon Dioxide Level 26 mmol/L (21-32) 26 mmol/L (21-32) Anion Gap 10 (6-14) 8 (6-14) Blood Urea Nitrogen 18 mg/dL (8-26) 24 mg/dL (8-26) Creatinine 0.8 mg/dL (0.7-1.3) 1.5 mg/dL (0.7-1.3) Estimated GFR (Cockcroft-Gault) 125.9 61.0 BUN/Creatinine Ratio 23 (6-20) 16 (6-20) Glucose Level 89 mg/dL (70-99) 129 mg/dL (70-99) Calcium Level 8.6 mg/dL (8.5-10.1) 8.3 mg/dL (8.5-10.1) Magnesium Level 2.2 mg/dL (1.8-2.4) 2.1 mg/dL (1.8-2.4) Total Bilirubin 0.9 mg/dL (0.2-1.0) 1.0 mg/dL (0.2-1.0) Aspartate Amino Transf (AST/SGOT) 35 U/L (15-37) 32 U/L (15-37) Alanine Aminotransferase (ALT/SGPT) 24 U/L (16-63) 25 U/L (16-63) Alkaline Phosphatase 270 U/L (46-116) 265 U/L (46-116) Total Protein 8.6 g/dL (6.4-8.2) 8.6 g/dL (6.4-8.2) Albumin 2.9 g/dL (3.4-5.0) 3.0 g/dL (3.4-5.0) Albumin/Globulin Ratio 0.5 (1.0-1.7) 0.5 (1.0-1.7) Lactic Acid Level 1.5 mmol/L (0.4-2.0) DY-Hdt-G-Type Natriuretic Peptide 565 pg/mL (0-124) Glucose (Fingerstick) 171 mg/dL (70-99) Test 07/08/18 11:55 Glucose (Fingerstick) 121 mg/dL (70-99) ECHOCARDIOGRAM ECHOCARDIOGRAM <Conclusion> The systolic function is severely impaired. The Ejection Fraction is 25-30%. There is global hypokinesis of the left ventricle. The anterior wall, septum are severely hypokinetic. The apex appears hyperkinetic, but this may be due to off axis imaging. Tissue Doppler imaging reveals moderate left ventricular diastolic dysfunction. DATE: 01/14/18 1125 HEART CATH HEART CATH Conclusion 1. Mild LV dysfunction. 2. Two vessel cAD 3. Successful PCI of the mid RCA with implantation of a Xience 3.08/19 RODNEY Recommendations ASA 81mg daily Prasugrel 10mg daily x 30 days, then transition to Plavix 75mg daily for 1 full year Statin therapy Cardiac rehab referral DATE: 04/03/17 1426 ASSESSMENT/PLAN ASSESSMENT/PLAN 1. Acute on chronic combined systolic/diastolic CHF 2. Anasarca; significant thigh swelling with redness- ? cellulitis 3. ICM: LVEF 25% 4. CAD; prior stent as noted above. 5. Morbid obesity, KATIUSKA, hypoventilation syndrome; still waiting for CPAP 6. NURY with hyperkalemia 7. HTN: controlled 8. DM2/HLP 9. COPD with continued tobaccoism Recommendations Diuresis with monitoring of renal function Follow renal recs Continue with secondary prevention measures. Will need CPAP/BiPAP Discussed lifestyle modifications, wt loss, diet compliance. Smoking cessation FR2L, strict I & O, daily wt. Could consider LHC following diuresis/wt loss. 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 TISH PONCE MD 07/08/18 1902: CARDIAC CONSULT ASSESSMENT/PLAN ASSESSMENT/PLAN Pt. seen and examined. Agree with above SAND MILLER note. Well known to me. Previously discussed with Dr. Jean poor compliance at home. Morbid obesity Needs continued aggressive diuresis. May need HD if no response to diuretics. Supportive care. Will follow along. No plans for LHC, may consider RHC if worsening renal function. Can do RHC in ICU bed if needed. he is not a candidate for ICD implantation at this time, needs optimization of HF and will consider on an outpt basis. Thanks. JUANY PETERS APRN Jul 08, 2018 13:12 TISH PONCE MD Jul 08, 2018 19:02
--- NOTE | 2018-07-08 13:55 | RAD ---
EXAM: Chest, 2 views. HISTORY: Dyspnea. COMPARISON: None. FINDINGS: 2 views the chest are obtained. There is diffuse central predominant interstitial infiltrate. There is no consolidation, pleural effusion or pneumothorax. There is a prominent cardiac silhouette. IMPRESSION: 1. Diffuse central predominant interstitial infiltrate. 2. Prominent cardiac silhouette. Electronically signed by: Temi Rose MD (07/08/2018 1:52 PM) [facility]
--- NOTE | 2018-07-08 15:45 | CONS ---
DATE OF CONSULTATION: ATTENDING PHYSICIAN: Dr. Kirby Jean. REASON FOR CONSULTATION: Dyspnea. HISTORY OF PRESENT ILLNESS: The patient is a 48-year-old male who has history of chronic cellulitis of the left lower extremity. The patient hospitalized with complaint of dyspnea with exertion. He has history of chronic lymphedema. He smoked for about 30 years up to 1-1/2 pack per day and now down to six cigarettes a day. He is not on home oxygen. The patient states he has been coughing, but it is nonproductive. No fever, no chills, no chest pain, no headaches. He was noted to be dozing off in between conversation. The patient's family states that he does it at home as well. However, the patient stated that he has not slept last night. I have reviewed the patient's imaging study and it showed some mildly prominent interstitial markings. His venous Dopplers were negative for DVT. He had a previous CT chest on 06/01/2018, which shows mildly prominent interstitial markings. His echocardiogram has shown from 03/2018, evidence of severe cardiomyopathy with an EF of 25%. He had a cardiac catheterization in 03/2017 and it showed mild LV dysfunction and had 2-vessel coronary artery disease and had PCI of mid RCA. The patient's ejection fraction in 03/2017 was 40%, but then echocardiogram in 01/2018 showed an EF of 25%-30%. The patient has put on 75 pounds in the last 6 months. He said he had a sleep study and has been diagnosed with sleep apnea and he is in the process of getting set up for CPAP. No history of PE or DVT. PAST MEDICAL HISTORY: Significant for history of COPD with long history of tobacco use, suspect chronic hypercapnia. History of morbid obesity, BMI of 62. History of obstructive sleep apnea, history of congestive heart failure, history of severe cardiomyopathy with an EF of 20%, history of diastolic dysfunction as well as history of eosinophilic pneumonia. History of steroid-induced hyperglycemia. History of reflux disease. PAST SURGICAL HISTORY: Arthroscopic knee surgeries. SOCIAL HISTORY: History of tobacco use for 30 years, 1-1/2 pack per day, now down to six cigarettes a day. History of IV drug abuse, but has been clean for 5 years. No history of alcoholism. FAMILY HISTORY: Noncontributory to lungs. ALLERGIES: TO AUGMENTIN. CURRENT MEDICATIONS: Reviewed as listed in the MRAD including furosemide IV, DuoNeb, Zyvox. REVIEW OF SYSTEMS: Twelve-point system obtained. Pertinent positives discussed in my history of present illness, otherwise noncontributory. All systems that were negative were reviewed as well. PHYSICAL EXAMINATION: GENERAL: He is awake, following command, but he dozes off in between conversation. VITAL SIGNS: Blood pressure 102/59, pulse ox 86%-97% on 2-3 liters. HEENT: Sclerae nonicteric. NECK: Supple. LUNGS: Diminished breath sounds. CARDIOVASCULAR: Regular rate and rhythm. ABDOMEN: Soft, obese. EXTREMITIES: With lymphedema of lower extremities. LABORATORY DATA: Reviewed. White cell count 8.9, hemoglobin 10.5 and platelets are 276. BUN 24, creatinine 1.5. Lactic acid 1.5. Hemoglobin 10.5. IMPRESSION: 1. Acute hypoxic respiratory failure secondary to multifactorial etiologies includes combination of underlying chronic obstructive pulmonary disease with exacerbation, acute on chronic systolic heart failure with an ejection fraction of 20%-25% and 75-pound weight gain in the last 6 months. 2. Abnormal previous CT chest and chest x-ray with bilateral interstitial infiltrates. This is a patient with severe cardiomyopathy and a two-vessel percutaneous coronary intervention done last year. I suspect ongoing systolic heart failure. He does have a history of eosinophilic pneumonia in the past and I would consider doing follow up on a noncontrast CT chest. 3. Obstructive sleep apnea, currently awaiting CPAP. 4. Lower extremity cellulitis and lymphedema. 5. Morbid obesity. 6. Severe cardiomyopathy with previous echo with an ejection fraction of 20%-25% and status post percutaneous coronary intervention of right coronary artery. 7. H/O Severe KATIUSKA RECOMMENDATIONS: 1. Discussed with the patient the importance of losing weight. He has put on 75 pounds in the last 6 months. 2. Continue present oxygen. 3. Obtain ABGs to rule out hypercapnia. 4. Would consider empiric CPAP in the hospital; however, he states that he is claustrophobic to the mask and only can tolerate nasal pillows, which may not be available in the hospital. 5. Aggressive diuresis. 6. Set up CPAP as an outpatient. 7. Smoking cessation counseling provided. 8. Obtain noncontrast CT chest. 9. Follow Cardiology recommendations. 10. Obtain ABGs. 11. Discussed with RN and family. LORI ROBERTS MD DR: Alexander JOB#: [id number] / [id number] [facility]
[2018-07-08 16:03] LABS: BASE EXCESS ABG -7 mmol/L (-3-3); HCO3 ABG 19 mmol/L (21-28); PCO2 ABG 39 mmHg (35-46); PO2 ABG 59 mmHg (75-108); SAT O2 ABG 88 % (92-99)
--- NOTE | 2018-07-08 16:46 | RAD ---
CT of the chest without contrast, 07/08/2018: HISTORY: Congestive heart failure versus interstitial lung disease Noncontrast scans were obtained with multiplanar reconstructions produced. The thoracic aorta is of normal caliber. The heart is mildly enlarged. There are moderate scattered coronary artery calcifications. Several small mediastinal lymph nodes are noted. The largest of these in the subcarinal region and measures 1.8 cm in short axis dimension. It appears to have decreased slightly in size since 06/01/2018. Evaluation of the lung parenchyma is partially compromised by patient respiratory motion artifact. There are moderate patchy groundglass opacities in both lungs which are most prominent posteriorly. There is only minimal interlobular septal thickening. Similar findings were present on the study of 06/01/2018. There are small 5-6 mm subpleural pulmonary nodules in the posterior aspect of the right lower lobe on image 32 of series #2 and in the left lower lobe on image 33 of series #2. These were present on an old study from 04/12/2016 and have shown no definite change. No dense pulmonary consolidation is seen. There is no evidence of pleural fluid. IMPRESSION: 1. Mild cardiomegaly with moderate coronary artery calcification. 2. Moderate patchy groundglass opacities in both lungs similar to those seen on 06/01/2018. This is a nonspecific appearance which could be due to chronic or recurrent edema, inflammation or chronic lung disease. 3. Unchanged small bibasilar subpleural pulmonary nodules. PQRS Compliance Statement: One or more of the following individualized dose reduction techniques were utilized for this examination: 1. Automated exposure control 2. Adjustment of the mA and/or kV according to patient size 3. Use of iterative reconstruction technique Electronically signed by: Yassine Partida MD (07/08/2018 4:43 PM) [facility]
[2018-07-08] MEDS ORDERED: METFORMIN HCL 1000 MG PO SCH (17:00)
[2018-07-08] MEDS: metOLazone 2.5 MG TABLET PO SCH (17:56)
[2018-07-08 18:17] LABS: FIO2 ABG 21
--- NOTE | 2018-07-08 19:12 | CONS ---
DATE OF CONSULTATION: 07/08/2018 ROOM: 430. REQUESTING PHYSICIAN: Dr. Reich. REASON FOR CONSULTATION: Cellulitis. HISTORY OF PRESENT ILLNESS: The patient is a 48-year-old gentleman with a history of diabetes and morbid obesity. He has had a previous lower extremity cellulitis. He has had multiple admissions before this and was last discharged approximately 06/04/2018 on Omnicef. He states for several months he has had thickening of both legs and in his pelvis area as well. He said he has had some subjective fevers and chills at home and some redness. He presented to [facility] Emergency Room on the evening of the 2nd, he has been afebrile, white blood cell count was normal. He was given vancomycin and admitted to the hospital. PAST MEDICAL HISTORY: Positive for diabetes, hypertension, morbid obesity, hyperlipidemia, acute bronchitis, chronic constipation, gastroesophageal reflux disease, cardiomyopathy, history of eosinophilic pneumonia, previous myocardial infarctions with chronic heart failure, obstructive sleep apnea, recurrent lower extremity cellulitis. PAST SURGICAL HISTORY: Positive for previous arthroscopic knee surgery, he has had cardiac stents, appendectomy. REVIEW OF SYSTEMS: Otherwise negative. SOCIAL HISTORY: He has a supportive family. He is a smoker. FAMILY HISTORY: Noncontributory. ALLERGIES: Listed as AUGMENTIN, which caused rash. This occurred within the last couple of months. CURRENT MEDICATIONS: Included vancomycin, he is on DuoNebs, Ecotrin, Lipitor, Bumex, Wellbutrin-XL, Coreg, Zyrtec, Plavix, Pepcid, Lasix, Neurontin, Lantus insulin, Humalog, Prinivil, Glucophage, and Singulair. PHYSICAL EXAMINATION: VITAL SIGNS: He is afebrile, temperature is 98.4, pulse 83, respirations 20, blood pressure 83/67. CONSTITUTIONAL: He is cooperative. He is in no acute distress. He is sitting on the side of the bed. HEENT: Pupils equal and reactive. Oral cavity, pharynx is clear. NECK: Supple. LUNGS: Clear to auscultation. HEART: S1, S2. ABDOMEN: Morbidly obese, soft, no guarding, no rebound. He has got some pitting thickness of his lower extremity abdominal area. EXTREMITIES: No clubbing, cyanosis. He has chronic swelling of the bilateral lower extremities, left greater than right and also had some fullness and thickening of groin tissue of his left thigh. SKIN: Otherwise warm to touch without signs of rash. NEUROLOGIC: Nonfocal and appropriate. PSYCHIATRIC: Affect is pleasant. LABORATORY DATA: White count 8.9, hemoglobin 10.5, platelets 276, neutrophils 66, lymphs 15, monos 4, eosinophils 4. Creatinine was 1.5, it was 0.8 on arrival, glucose of 125, normal liver function study tests. Lower extremity ultrasound within limitation, no apparent evidence of acute DVT of his lower extremities. IMPRESSION: 1. Questionable left upper thigh cellulitis with some yeast versus fluid retention. 2. Acute kidney injury. 3. Fluid overload. 4. AUGMENTIN ALLERGY causes a rash. 5. Morbid obesity. 6. Diabetes. RECOMMENDATIONS: Discontinue the vancomycin with his acute kidney injury. Begin p.o. Zosyn, p.o. Flagyl, p.o. fluconazole and IV cefepime. He needs diuresis. Cardiology evaluation and BMP is pending. Await renal evaluation. Pulmonary evaluation pending and a history of small nodules. Follow up labs and cultures. Thank you for allowing me to participate in the patient's care. Should you have any further concerns or questions, please do not hesitate to contact me. LISA GROVER MD DR: PHOEBE/jody JOB#: [id number] / [id number]
[2018-07-08] MEDS: FUROSEMIDE 40 MG/4 ML VIAL. IVP SCH (19:15)
[2018-07-08] MEDS ORDERED: NON FORMULARY ITEM (Pravastatin Sodium 1 TAB) PO SCH (21:00)
[2018-07-08] MEDS ORDERED: MONTELUKAST SODIUM 10 MG PO SCH (21:00)
[2018-07-08] MEDS: INSULIN GLARGINE 300 UNITS/3 ML INSULN.PEN. SQ SCH (21:00)
--- NOTE | 2018-07-08 21:22 | NUR ---
Patient medication bags reopened in pharmacy to look for Linzess, but none identified as such.
[2018-07-08] MEDS: MONTELUKAST SODIUM 10 MG TABLET. PO SCH (21:56)
[2018-07-08] MEDS: diphenhydrAMINE HCL 25 MG CAPSULE PO PRN (21:56)
[2018-07-08] MEDS: FAMOTIDINE 20 MG TABLET. PO SCH (21:56)
[2018-07-08] MEDS: GABAPENTIN 300 MG CAPSULE. PO SCH (21:56)
[2018-07-08] MEDS: ATORVASTATIN CALCIUM 10 MG TABLET. PO SCH (21:56)
[2018-07-08] MEDS: DICLOFENAC SODIUM 1% TOPICAL GEL 100GM TUBE. TP SCH (21:58)
[2018-07-08] MEDS: LACTOBACILLUS RHAMNOSUS GG 1 CAPSULE. PO SCH (22:02)
[2018-07-09] VITALS (10 sets, daily range): BP systolic 123–149; BP diastolic 56–88
[2018-07-09] MEDS: FUROSEMIDE 40 MG/4 ML VIAL. IVP SCH ×2 (00:32→06:17)
--- NOTE | 2018-07-09 03:06 | CONS ---
DATE OF CONSULTATION: 07/08/2018 ATTENDING PHYSICIAN: Dr. Kirby Jean The patient was seen at the request of Dr. Jean for rehab evaluation. He is in room 530. HISTORY OF PRESENT ILLNESS: This is a 48-year-old male with known cellulitis of right thigh, pneumonia, chronic obstructive pulmonary disease, morbid obesity, obstructive sleep apnea, congestive heart failure with ejection fraction of 15-20% with both diastolic and systolic congestive heart failure, history of eosinophilic pneumonia, hypertension, hyperlipidemia, steroid-induced hyperglycemia as well as noncompliance and insulin-dependent, history of noncompliance with CPAP use, supposed to be on CPAP with 12 cm pressure, osteoarthritis of his knees, chronic lower back pain, low-transit constipation, right lower lung pulmonary nodule, gastroesophageal reflux disease with esophagitis, mixed hyperlipidemia, status post arthroscopic surgery done to his right knee several times and also cysts removed from his right groin and some release done to his right knee, also appendectomy. He had a history of smoking. Also, IV drug abuse, has been cleaned for about 5 years. No history of alcoholism. He is on disability, lives with his family, had stairs for him to manage. He does not have a walker to use at home. HE IS KNOWN ALLERGIC TO AMOXICILLIN AND CLAVULANIC ACID. THE PATIENT IS ALSO KNOWN ALLERGIC TO AUGMENTIN. PHYSICAL EXAMINATION: Today revealed young male patient in no acute distress. He is alert, oriented to time, place, person and circumstance and follows commands appropriately, moves all 4 extremities voluntarily where he had 5/5 grade muscle strength and deep tendon reflexes are decreased overall with absent knee and ankle jerks and he had equal perception of touch and pinprick sensation bilaterally. He had induration of the skin over medial aspect of his right thigh and also both legs with some clinical evidence of chronic venous insufficiency of both feet and legs with some discoloration of the skin. He had crepitus on range of motion of both knee joints without any obvious knee joint effusion. He had pain free range of motion of both hip joints. He had painful limited movements of his lumbar spine and tenderness to palpation over sacroiliac joint area and right trochanteric bursa. Straight leg raising test is negative bilaterally. He is independent with bed mobility. I have not tested transfers or ambulation skills at this time. ASSESSMENT: A young male with morbid obesity, degenerative joints of both knees, degenerative disk disease of lumbar vertebrae with associated right trochanteric bursitis, lymphedema of both lower extremities, also possible chronic venous insufficiency and cellulitis of right thigh medial aspect. The patient with known morbid obesity, chronic obstructive pulmonary disease, obstructive sleep apnea, congestive heart failure with ejection fraction of 15-20%, hypertension, hyperlipidemia, diabetes mellitus with peripheral neuropathy, gastroesophageal reflux disease. RECOMMENDATIONS: Agree with the plan for physical therapy and occupational therapy to see him to consider injecting his painful knees and sacral joint area and right trochanteric bursa on as needed basis. Dr. Jean, I appreciate asking me to participate in the care of this interesting patient. I will be glad to follow him with you as needed for the rehabilitation. ALVARO RHOADES MD DR: LUIS MIGUEL/nts JOB#: [id number] / [id number]
[2018-07-09 05:06] LABS: BASO # 0.1 x10^3/uL (0.0-0.2); BASO % 1 % (0-3); EOS # 0.4 x10^3/uL (0.0-0.7); EOS % 5 % (0-3); HEMATOCRIT 34.2 % (39.0-53.0); HEMOGLOBIN 10.1 g/dL (13.0-17.5); LYMPH # 1.2 x10^3/uL (1.0-4.8); LYMPH % 15 % (24-48); MEAN CORPUSCULAR HEMOGLOBIN 24 pg (25-35); MEAN CORPUSCULAR HGB CONC 30 g/dL (31-37); MEAN CORPUSCULAR VOLUME 82 fL (79-100); MONO # 1.2 x10^3/uL (0.0-1.1); MONO % 14 % (0-9); NEUT # 5.5 x10^3uL (1.8-7.7); NEUT % 65 % (31-73); PLATELET COUNT 289 x10^3/uL (140-400); RED BLOOD COUNT 4.19 x10^6/uL (4.30-5.70); RED CELL DISTRIBUTION WIDTH 21.2 % (11.5-14.5); WHITE BLOOD COUNT 8.5 x10^3/uL (4.0-11.0)
[2018-07-09 05:17] LABS: ALBUMIN/GLOBULIN RATIO 0.5 (1.0-1.7); CALCIUM 8.3 mg/dL (8.5-10.1); GFR 43.7; MAGNESIUM 2.2 mg/dL (1.8-2.4); POTASSIUM 5.2 mmol/L (3.5-5.1); TOTAL BILIRUBIN 0.8 mg/dL (0.2-1.0); TOTAL PROTEIN 8.7 g/dL (6.4-8.2)
[2018-07-09] MEDS: IPRATRPIUM/ALBUTEROL 0.5/2.5MG 3 ML NEBU. NEB SCH ×4 (07:28→20:21)
[2018-07-09] MEDS: PANTOPRAZOLE 40 MG TABLET.DR. PO SCH (07:41)
[2018-07-09] MEDS: CARVEDILOL 6.25 MG TABLET. PO SCH ×2 (08:27→17:56)
[2018-07-09] MEDS: metFORMIN 500 MG TABLET PO SCH ×2 (08:28→17:56)
[2018-07-09] MEDS: ASPIRIN ENTERIC COATED 81 MG TABLET.DR. PO SCH (08:28)
[2018-07-09] MEDS: INSULIN LISPRO 300 UNITS/3 ML INSULN.PEN. SQ SCH ×3 (08:30→17:00)
[2018-07-09] MEDS: CEFEPIME HCL IV Push 2 GM VIAL. IVP SCH ×2 (08:38→21:07)
[2018-07-09] MEDS: LACTOBACILLUS RHAMNOSUS GG 1 CAPSULE. PO SCH ×2 (08:39→21:05)
[2018-07-09] MEDS: FLUCONAZOLE 100 MG TABLET. PO SCH (08:39)
[2018-07-09] MEDS: metroNIDAZOLE 500 MG TABLET PO SCH ×2 (08:40→21:05)
[2018-07-09] MEDS: CLOPIDOGREL BISULFATE 75 MG TABLET PO SCH (08:40)
[2018-07-09] MEDS: LISINOPRIL 20 MG TABLET PO SCH (08:41)
[2018-07-09] MEDS: buPROPion XL 150 MG TAB.ER.24H. PO SCH (08:41)
[2018-07-09] MEDS: CETIRIZINE HCL 10 MG TABLET. PO SCH (08:42)
[2018-07-09] MEDS: metOLazone 2.5 MG TABLET PO SCH (08:42)
[2018-07-09] MEDS: INSULIN GLARGINE 300 UNITS/3 ML INSULN.PEN. SQ SCH ×2 (08:45→21:13)
[2018-07-09] MEDS: DICLOFENAC SODIUM 1% TOPICAL GEL 100GM TUBE. TP SCH ×2 (08:47→21:04)
[2018-07-09] MEDS: NICOTINE 21MG PATCH. TD SCH (08:47)
[2018-07-09] MEDS: LINEZOLID 600 MG TABLET PO SCH ×2 (08:52→21:04)
[2018-07-09] MEDS ORDERED: NON FORMULARY ITEM (Dexlansoprazole (Dexilant) 1 CAP) PO SCH (09:00)
[2018-07-09] MEDS ORDERED: NON FORMULARY ITEM (Linaclotide (Linzess) 145 MCG) PO SCH (09:00)
[2018-07-09] MEDS ORDERED: GLYCOPYRROLATE IH SCH (09:00)
[2018-07-09] MEDS ORDERED: FORMOTEROL FUM IH SCH (09:00)
--- NOTE | 2018-07-09 09:13 | PDOC ---
Infectious Disease Note Vital Sign Vital Signs Vital Signs Date Time Temp Pulse Resp B/P (MAP) Pulse Ox O2 Delivery O2 Flow Rate FiO2 07/09/18 08:41 102 143/81 07/09/18 07:31 96 Room Air 07/09/18 03:00 97.9 16 2.0 97.9 Physical Exam PHYSICAL EXAM CONSTITUTIONAL: He is cooperative. He is in no acute distress. He is sitting on the side of the bed. HEENT: Pupils equal and reactive. Oral cavity, pharynx is clear. NECK: Supple. LUNGS: Clear to auscultation. HEART: S1, S2. ABDOMEN: Morbidly obese, soft, no guarding, no rebound. He has got some pitting thickness of his lower extremity abdominal area. EXTREMITIES: No clubbing, cyanosis. He has chronic swelling of the bilateral lower extremities, left greater than right and also had some fullness and thickening of groin tissue of his left thigh. SKIN: Otherwise warm to touch without signs of rash. NEUROLOGIC: Nonfocal and appropriate. PSYCHIATRIC: Affect is pleasant. Labs Lab Laboratory Tests Test 07/08/18 11:55 07/08/18 15:45 07/08/18 16:59 07/08/18 21:01 Glucose (Fingerstick) 121 mg/dL (70-99) 79 mg/dL (70-99) 139 mg/dL (70-99) O2 Saturation 88 % (92-99) Arterial Blood pH 7.30 (7.35-7.45) Arterial Blood pCO2 at Patient Temp 39 mmHg (35-46) Arterial Blood pO2 at Patient Temp 59 mmHg (75-108) Arterial Blood HCO3 19 mmol/L (21-28) Arterial Blood Base Excess -7 mmol/L (-3-3) FiO2 21 Test 07/09/18 03:45 07/09/18 08:01 White Blood Count 8.5 x10^3/uL (4.0-11.0) Red Blood Count 4.19 x10^6/uL (4.30-5.70) Hemoglobin 10.1 g/dL (13.0-17.5) Hematocrit 34.2 % (39.0-53.0) Mean Corpuscular Volume 82 fL (79-100) Mean Corpuscular Hemoglobin 24 pg (25-35) Mean Corpuscular Hemoglobin Concent 30 g/dL (31-37) Red Cell Distribution Width 21.2 % (11.5-14.5) Platelet Count 289 x10^3/uL (140-400) Neutrophils (%) (Auto) 65 % (31-73) Lymphocytes (%) (Auto) 15 % (24-48) Monocytes (%) (Auto) 14 % (0-9) Eosinophils (%) (Auto) 5 % (0-3) Basophils (%) (Auto) 1 % (0-3) Neutrophils # (Auto) 5.5 x10^3uL (1.8-7.7) Lymphocytes # (Auto) 1.2 x10^3/uL (1.0-4.8) Monocytes # (Auto) 1.2 x10^3/uL (0.0-1.1) Eosinophils # (Auto) 0.4 x10^3/uL (0.0-0.7) Basophils # (Auto) 0.1 x10^3/uL (0.0-0.2) Erythrocyte Sedimentation Rate 33 (0-15) Sodium Level 138 mmol/L (136-145) Potassium Level 5.2 mmol/L (3.5-5.1) Chloride Level 103 mmol/L (98-107) Carbon Dioxide Level 25 mmol/L (21-32) Anion Gap 10 (6-14) Blood Urea Nitrogen 30 mg/dL (8-26) Creatinine 2.0 mg/dL (0.7-1.3) Estimated GFR (Cockcroft-Gault) 43.7 BUN/Creatinine Ratio 15 (6-20) Glucose Level 161 mg/dL (70-99) Calcium Level 8.3 mg/dL (8.5-10.1) Magnesium Level 2.2 mg/dL (1.8-2.4) Total Bilirubin 0.8 mg/dL (0.2-1.0) Aspartate Amino Transf (AST/SGOT) 29 U/L (15-37) Alanine Aminotransferase (ALT/SGPT) 23 U/L (16-63) Alkaline Phosphatase 264 U/L (46-116) Total Protein 8.7 g/dL (6.4-8.2) Albumin 3.0 g/dL (3.4-5.0) Albumin/Globulin Ratio 0.5 (1.0-1.7) Procalcitonin < 0.10 ng/mL (0.00-0.10) Glucose (Fingerstick) 181 mg/dL (70-99) Micro CT chest 07/08 IMPRESSION: 1. Mild cardiomegaly with moderate coronary artery calcification. 2. Moderate patchy groundglass opacities in both lungs similar to those seen on 06/01/2018. This is a nonspecific appearance which could be due to chronic or recurrent edema, inflammation or chronic lung disease. 3. Unchanged small bibasilar subpleural pulmonary nodules. Microbiology 07/07/18 Blood Culture - Preliminary, Resulted NO GROWTH AFTER 1 DAY Objective Assessment ? Left upper thigh cellulitis/yeast vs fluid retention - normal Procalcitonin NURY - mild worse Fluid overload Augmentin allergy - rash Morbid Obesity DM Plan Plan of Care Cont Po Zyvox/Flagyl/Fluconazole IV Cefepime Needs diuresis F/u labs and cults LISA GROVER MD Jul 09, 2018 09:13
--- NOTE | 2018-07-09 10:08 | NUR ---
The non-formulary medications of Linzess and Glycopyrrolate/Formoterol are not available, per pharmacy.
--- NOTE | 2018-07-09 10:16 | CARD ---
MR#: [id number] Date of Study: 07/09/2018 Ordering Physician: JUANY PETERS, Referring Physician: PADDY LINCOLN Tech: Jonna Almaraz RDCS APPROVED REPORT EXAM: Two-dimensional and M-mode echocardiogram with Doppler and color Doppler. Other Information Quality : Technically Limited Technically limited study due to morbid obesity INDICATION Congestive Heart Failure RISK FACTORS Obesity 2D DIMENSIONS RVDd3.8 (2.9-3.5cm)Left Atrium(2D)5.2 (1.6-4.0cm) IVSd1.1 (0.7-1.1cm)Aortic Root(2D)2.9 (2.0-3.7cm) LVDd6.4 (3.9-5.9cm)LVOT Diameter2.6 (1.8-2.4cm) PWd1.3 (0.7-1.1cm)LVDs5.8 (2.5-4.0cm) FS (%) 9.4 %SV42.7 ml LVEF(%)20.2 (>50%) Aortic Valve AoV Peak Florentino.104.7cm/sAoV VTI18.6cm AO Peak GR.4.4mmHgLVOT Peak Florentino.81.5cm/s AO Mean GR.3mmHgAVA (VMAX)4.22cm2 MIR (VTI)4.40cm2 Mitral Valve MV E Vsuwilor607.9cm/sMV DECEL [id number] MV A Ufpabxgd01.0cm/sE/A Ratio2.1 Tricuspid Valve TR P. [id number]/sRAP [id number] TR Peak Gr.73kjQdFAMU79hwPn LEFT VENTRICLE The Left Ventricle is moderately dilated. There is mild concentric left ventricular hypertrophy. Left ventricle systolic function is severely impaired. The Ejection Fraction is 15-20%. There is severe g lobal hypokinesis of the left ventricle. Tissue Doppler imaging reveals severe left ventricular diast olic dysfunction. No left ventricle thrombus noted on this study. RIGHT VENTRICLE The right ventricle is mildly dilated. The right ventricular systolic function is mild to moderately reduced. ATRIA The left atrium is moderately dilated. The right atrium is moderately dilated. The interatrial septum is intact with no evidence for an atrial septal defect or patent foramen ovale as noted on 2-D or Do ppler imaging. AORTIC VALVE The aortic valve is calcified but opens well. Doppler and Color Flow revealed no significant aortic r egurgitation. There is no significant aortic valvular stenosis. MITRAL VALVE The mitral valve is normal in structure and function. There is no evidence of mitral valve prolapse. There is no mitral valve stenosis. Doppler and Color Flow revealed no mitral valve regurgitation note d. TRICUSPID VALVE The tricuspid valve is normal in structure and function. Doppler and Color Flow revealed trace to mil d tricuspid regurgitation.There is moderate pulmonary hypertension.The PA pressure was estimated at 4 3 mmHg. There is no tricuspid valve stenosis. PULMONIC VALVE The pulmonary valve is normal in structure and function. Doppler and Color Flow revealed mild pulmoni c valvular regurgitation. There is no pulmonic valvular stenosis. GREAT VESSELS The aortic root is normal in size. The ascending aorta is normal in size. There is mild pulmonary art mary dilatation. The IVC is dilated and collapses <50% with inspiration. PERICARDIAL EFFUSION There is no evidence of significant pericardial effusion. Critical Notification Critical Value: No <Conclusion> Left ventricle systolic function is severely impaired. The Ejection Fraction is 15-20%. There is severe global hypokinesis of the left ventricle. Doppler and Color Flow revealed trace to mild tricuspid regurgitation.There is moderate pulmonary hyp ertension.The PA pressure was estimated at 43 mmHg. The IVC is dilated and collapses <50% with inspiration. Signed by : Ge Valladares, Electronically Approved : 07/09/2018 10:15:59
--- NOTE | 2018-07-09 10:27 | PDOC ---
PROGRESS NOTES Subjective Subjective soft tissue swelling upper thighs and abdomen Objective Objective Vital Signs Date Time Temp Pulse Resp B/P (MAP) Pulse Ox O2 Delivery O2 Flow Rate FiO2 07/09/18 08:41 102 143/81 07/09/18 08:00 Nasal Cannula 2.0 07/09/18 07:31 96 07/09/18 07:30 18 07/09/18 03:00 97.9 97.9 Intake and Output 07/09/18 07:00 Intake Total 4550 ml Output Total 3000 ml Balance 1550 ml Intake Oral 3550 ml IV Total 1000 ml Output Urine Total 3000 ml Physical Exam Abdomen: Normal bowel sounds, Soft, No tenderness Heart: Regular rate, Normal S1, Normal S2 Extremities: No clubbing, Other (2-4+ EDEMA) General: Alert, Oriented X3, Cooperative, No acute distress HEENT: Atraumatic, PERRLA, EOMI, Mucous membr. moist/pink Lungs: Clear to auscultation MUSCULOSKELETAL: No joint tenderness, No deformity Neuro: Normal speech Psych/Mental Status: Mental status NL, Mood NL Skin: No breakdown, Other (STASIS DISCOLOARATION BILATERALLY AND ERYTHEMA BILATERALLY IN LE) COMMENT abd wall edema Diagnosis Problem List Problems Medical Problems: (1) Bilateral lower leg cellulitis Status: Acute Assessment Assessment Problems Medical Problems: (1) Bilateral lower leg cellulitis Status: Acute IMPRESSION: 1. Possible cellulitis of the lower extremities. 2. Chronic edema of both lower extremities and lymphedema. 3. 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 4. Respiratory failure, hypoxic. 5. Morbid obesity. 6. Obstructive sleep apnea, CPAP, noncompliant. 7. Diabetes mellitus type 2, insulin-dependent, noncompliant. 8. Chronic obstructive pulmonary disease. 9. Hyperkalemia. 10. Slow transit constipation. 11. Osteoarthritis of both knees. 12. Physical deconditioning. 13. History of right lower lung nodule. 14. Gastroesophageal reflux disease with esophagitis. 15. Mixed hyperlipidemia. 16. Noncompliance. 17. Anemia of chronic disease. 18. Coronary artery disease with 2-vessel coronary artery disease status post drug-eluting stent of the right coronary artery on 04/03/2017. PLAN: cr 2.0 echo 15%. renal consult. monitor kidney function morbid obesity. rehab consult iv lasix.as per cardiology Venous Doppler of both lower extremities are negative. We will consult Dr. Valentine for infectious disease evaluation and management. Monitor renal function. Consult Dr. Boggs because unable to mobilize fluid due to third spacing. Consult Dr. Valladares as the patient would like to consider AICD and monitor congestive heart failure and treat congestive heart failure. Consult Dr. Willis for rehab evaluation and management. Prognosis of this patient is very poor. I will also order a chest x-ray, BNP and consult with Dr. Guzman. For details, please refer to the orders. Plan Plan of Care Problems Medical Problems: (1) Bilateral lower leg cellulitis Status: Acute Comment Review of Relevant I have reviewed the following items mukund (where applicable) has been applied. Labs Laboratory Tests Test 07/08/18 11:55 07/08/18 15:45 07/08/18 16:59 07/08/18 21:01 Glucose (Fingerstick) 121 mg/dL (70-99) 79 mg/dL (70-99) 139 mg/dL (70-99) O2 Saturation 88 % (92-99) Arterial Blood pH 7.30 (7.35-7.45) Arterial Blood pCO2 at Patient Temp 39 mmHg (35-46) Arterial Blood pO2 at Patient Temp 59 mmHg (75-108) Arterial Blood HCO3 19 mmol/L (21-28) Arterial Blood Base Excess -7 mmol/L (-3-3) FiO2 21 Test 07/09/18 03:45 07/09/18 08:01 White Blood Count 8.5 x10^3/uL (4.0-11.0) Red Blood Count 4.19 x10^6/uL (4.30-5.70) Hemoglobin 10.1 g/dL (13.0-17.5) Hematocrit 34.2 % (39.0-53.0) Mean Corpuscular Volume 82 fL (79-100) Mean Corpuscular Hemoglobin 24 pg (25-35) Mean Corpuscular Hemoglobin Concent 30 g/dL (31-37) Red Cell Distribution Width 21.2 % (11.5-14.5) Platelet Count 289 x10^3/uL (140-400) Neutrophils (%) (Auto) 65 % (31-73) Lymphocytes (%) (Auto) 15 % (24-48) Monocytes (%) (Auto) 14 % (0-9) Eosinophils (%) (Auto) 5 % (0-3) Basophils (%) (Auto) 1 % (0-3) Neutrophils # (Auto) 5.5 x10^3uL (1.8-7.7) Lymphocytes # (Auto) 1.2 x10^3/uL (1.0-4.8) Monocytes # (Auto) 1.2 x10^3/uL (0.0-1.1) Eosinophils # (Auto) 0.4 x10^3/uL (0.0-0.7) Basophils # (Auto) 0.1 x10^3/uL (0.0-0.2) Erythrocyte Sedimentation Rate 33 (0-15) Sodium Level 138 mmol/L (136-145) Potassium Level 5.2 mmol/L (3.5-5.1) Chloride Level 103 mmol/L (98-107) Carbon Dioxide Level 25 mmol/L (21-32) Anion Gap 10 (6-14) Blood Urea Nitrogen 30 mg/dL (8-26) Creatinine 2.0 mg/dL (0.7-1.3) Estimated GFR (Cockcroft-Gault) 43.7 BUN/Creatinine Ratio 15 (6-20) Glucose Level 161 mg/dL (70-99) Calcium Level 8.3 mg/dL (8.5-10.1) Magnesium Level 2.2 mg/dL (1.8-2.4) Total Bilirubin 0.8 mg/dL (0.2-1.0) Aspartate Amino Transf (AST/SGOT) 29 U/L (15-37) Alanine Aminotransferase (ALT/SGPT) 23 U/L (16-63) Alkaline Phosphatase 264 U/L (46-116) Total Protein 8.7 g/dL (6.4-8.2) Albumin 3.0 g/dL (3.4-5.0) Albumin/Globulin Ratio 0.5 (1.0-1.7) Procalcitonin < 0.10 ng/mL (0.00-0.10) Glucose (Fingerstick) 181 mg/dL (70-99) Microbiology 07/07/18 Blood Culture - Preliminary, Resulted NO GROWTH AFTER 1 DAY Medications Current Medications Albuterol Sulfate (Ventolin Neb Soln) 2.5 mg RTQID NEB ; Start 07/08/18 at 12:00 ; Stop 07/08/18 at 12:01; Status DC Albuterol/ Ipratropium (Duoneb) 3 ml RTQID NEB Last administered on 07/09/18 07 :28; Start 07/08/18 at 12:00 Aspirin (Ecotrin) 81 mg DAILYWBKFT PO Last administered on 07/09/18 08:28; Start 07/08/18 at 11:00 Atorvastatin Calcium (Lipitor) 5 mg QHS PO Last administered on 07/08/18 21:56 ; Start 07/08/18 at 21:00 Bupropion HCl (Wellbutrin Xl) 300 mg DAILY PO Last administered on 07/09/18 08: 41; Start 07/08/18 at 11:00 Carvedilol (Coreg) 6.25 mg BIDWMEALS PO ; Start 07/08/18 at 11:00; Status Cancel Cefepime HCl (Maxipime) 2 gm Q12HR IVP Last administered on 07/09/18 08:38; Start 07/08/18 at 12:00 Diclofenac Sodium (Voltaren) 1 chung BID TP Last administered on 07/09/18 08:47; Start 07/08/18 at 21:00 Diphenhydramine HCl (Benadryl) 25 mg PRN Q6HRS PRN PO ITCHING Last administered on 07/08/18 21:56; Start 07/08/18 at 20:00 Famotidine (Pepcid) 20 mg HS PO Last administered on 07/08/18 21:56; Start 07/08 at 21:00 Fluconazole (Diflucan) 100 mg DAILY PO Last administered on 07/09/18 08:39; Start 07/08/18 at 12:00 Furosemide (Lasix) 40 mg 1X ONCE IVP Last administered on 07/08/18 17:56; Start 07/08/18 at 13:00; Stop 07/08/18 at 13:19; Status DC Furosemide (Lasix) 40 mg Q6HRS IVP Last administered on 07/09/18 06:17; Start 07/08/18 at 18:00 Furosemide (Lasix) 80 mg DAILY PO Last administered on 07/08/18 12:47; Start at 11:00; Stop 07/08/18 at 13:02; Status DC Gabapentin (Neurontin) 300 mg HS PO Last administered on 07/08/18 21:56; Start 07/08/18 at 21:00 Insulin Glargine (Lantus) 80 units 1400 SQ ; Start 07/08/18 at 14:00; Status Cancel Insulin Glargine (Lantus) 80 units BID SQ Last administered on 07/09/18 08:45; Start 07/08/18 at 21:00 Insulin Glargine (Lantus) 100 units BID SQ ; Start 07/08/18 at 21:00; Status Cancel Insulin Human Lispro (HumaLOG) 70 units TIDWMEALS SQ Last administered on 08:30; Start 07/08/18 at 12:00 Lactobacillus Rhamnosus (Culturelle) 1 cap BID PO Last administered on 08:39; Start 07/08/18 at 21:00 Linezolid (Zyvox) 600 mg BID PO Last administered on 07/09/18 08:52; Start 07/08 at 12:00 Metolazone (Zaroxolyn) 5 mg DAILY PO Last administered on 07/09/18 08:42; Start 07/08/18 at 14:00 Metronidazole (Flagyl) 500 mg Q12HR PO Last administered on 07/09/18 08:40; Start 07/08/18 at 12:00 Montelukast Sodium (Singulair) 10 mg QHS PO Last administered on 07/08/18 21:56 ; Start 07/08/18 at 21:00 Nicotine (Nicoderm Cq 21mg) 1 patch DAILY TD Last administered on 07/09/18 08: 47; Start 07/08/18 at 11:30 Non-Formulary Medication (Dexlansoprazole (Dexilant)) 1 cap DAILY PO ; Start 07/09/18 at 09:00; Stop 07/09/18 at 09:00; Status DC Non-Formulary Medication (Glycopyrrolate/ Formoterol Fum (Bevespi Aerosphere Inhaler)) 10.7 gm DAILY IH ; Start 07/09/18 at 09:00; Status UNV Non-Formulary Medication (Linaclotide (Linzess)) 145 mcg DAILY PO ; Start at 09:00; Status UNV Non-Formulary Medication (Metformin Hcl (Glucophage)) 1,000 mg BIDWMEALS PO ; Start 07/08/18 at 17:00; Status UNV Non-Formulary Medication (Montelukast Sodium (Singulair Tablet)) 10 mg HS PO ; Start 07/08/18 at 21:00; Status UNV Non-Formulary Medication (Pravastatin Sodium ) 1 tab QHS PO ; Start 07/08/18 at 21:00; Status UNV Ondansetron HCl (Zofran) 4 mg PRN Q6HRS PRN IV NAUSEA/VOMITING Last administered on 07/08/18at 19:26; Start 07/08/18 at 11:15 Vancomycin HCl (Vancomycin Trough Level) 1 each 1X ONCE MC ; Start 07/08/18 at 18:30; Stop 07/08/18 at 18:30; Status DC Vitals/I & O Vital Sign - Last 24 Hours 07/08/18 07/08/18 07/08/18 07/08/18 11:00 11:40 11:41 15:00 Temp 98.4 97.7 98.4 97.7 Pulse 83 84 67 Resp 20 20 B/P (MAP) 82/67 (72) 102/59 (73) 94/58 (70) Pulse Ox 90 97 86 O2 Delivery Nasal Cannula Nasal Cannula O2 Flow Rate 2.0 3.0 07/08/18 07/08/18 07/08/18 07/08/18 15:44 19:00 19:08 19:14 Temp 97.5 97.5 Pulse 89 94 Resp 20 20 B/P (MAP) 135/92 (106) 135/92 Pulse Ox 90 94 O2 Delivery Room Air Nasal Cannula Nasal Cannula O2 Flow Rate 2.0 3.0 07/08/18 07/08/18 07/08/18 07/09/18 20:00 21:28 23:00 00:09 Temp 98.3 98.0 98.3 98.0 Pulse 88 88 Resp 18 B/P (MAP) 149/86 (107) 149/86 (107) Pulse Ox 89 95 95 O2 Delivery Nasal Cannula Room Air Nasal Cannula Nasal Cannula O2 Flow Rate 3.0 2.0 4/4/19 4/4/19 4/4/19 4/4/19 00:15 03:00 07:30 07:31 Temp 97.9 97.9 Pulse 84 102 Resp 16 18 B/P (MAP) 140/88 (105) 143/81 (101) Pulse Ox 96 91 90 96 O2 Delivery BiPAP/CPAP Nasal Cannula Room Air O2 Flow Rate 2.0 2.0 07/09/18 07/09/18 07/09/18 08:00 08:27 08:41 Pulse 102 102 B/P (MAP) 143/81 143/81 O2 Delivery Nasal Cannula O2 Flow Rate 2.0 Intake and Output 07/08/18 07/08/18 07/09/18 15:00 23:00 07:00 Intake Total 750 ml 800 ml 3000 ml Output Total 1850 ml 1150 ml Balance 750 ml -1050 ml 1850 ml ARYA SAENZ MD Jul 09, 2018 10:27
[2018-07-09] MEDS: HYDROcodone/APAP 5/325MG 1 TAB TABLET PO PRN ×3 (10:44→22:33)
--- NOTE | 2018-07-09 11:05 | PDOC ---
SUBJECTIVE ROS No new complaints, states swelling is not improved Gradually increased to both the thighs and abdomen- going on for 3 months No SOB at rest, continues to smoke , has KATIUSKA OBJECTIVE Vital Signs Vital Signs Date Time Temp Pulse Resp B/P (MAP) Pulse Ox O2 Delivery O2 Flow Rate FiO2 07/09/18 10:44 96 Nasal Cannula 2.0 07/09/18 08:41 102 143/81 07/09/18 07:30 18 07/09/18 03:00 97.9 97.9 I & 0 Intake and Output 07/09/18 07:00 Intake Total 4550 ml Output Total 3000 ml Balance 1550 ml Intake Oral 3550 ml IV Total 1000 ml Output Urine Total 3000 ml PHYSICAL EXAM Physical Exam Gen: NAD, sitting up on the side of the bed. HEENT: OM moist , On RA NECK: Supple. LUNGS: Clear to auscultation. HEART: S1, S2. ABDOMEN: Morbidly obese, pitting edema lower abdominal area. EXTREMITIES: chronic swelling of the bilateral lower extremities, left greater than right mostly in thighs SKIN: No rash NEUROLOGIC: Nonfocal No garcia DIAGNOSIS/ASSESSMENT Assessment & Plan Anasarca- Cardiorenal On IV Lasix and Metolazone Good UOP, but Wt significantly up Switch to IV Lasix drip and IV Dobutamine continue Metolazone Dc gabapentin Strict I/O and accurate daily weight NURY -Cardiorenal DC BECKY-I LE cellulitis- ID consulted Has been on multiple ABx as per Pt Most Recent Bactrim prior to admission Morbid Obesity CM with EF of 15-20% Cardiology following Pulm Infiltrates- Pulm following ESR pending CT scan stable findings Hyperkalemia KATIUSKA- Non compliant Chronic Anemia Discussed with Card and Pulm CAD COMMENT/RELEVANT DATA Meds Current Medications Medications (Trade) Dose Ordered Sig/Linden Start Time Stop Time Status Last Admin Dose Admin Acetaminophen (Tylenol) 650 mg PRN Q4HRS PRN 07/07/18 20:15 07/08/18 20:14 DC Acetaminophen/ Hydrocodone Bitart (Lortab 5/325) 1 tab PRN Q4HRS PRN 07/09/18 10:30 07/09/18 10:44 1 TAB Albuterol Sulfate (Ventolin Neb Soln) 2.5 mg RTQID 07/08/18 12:00 07/08/18 12:01 DC Albuterol/ Ipratropium (Duoneb) 3 ml RTQID 07/08/18 12:00 07/09/18 07:28 3 ML Aspirin (Ecotrin) 81 mg [id number] 07/08/18 11:00 07/09/18 08:28 81 MG Atorvastatin Calcium (Lipitor) 5 mg QHS 07/08/18 21:00 07/08/18 21:56 5 MG Bumetanide (Bumex) 1 mg DAILY 07/08/18 09:00 07/08/18 13:02 DC 07/08/18 09:06 1 MG Bupropion HCl (Wellbutrin Xl) 300 mg DAILY 07/08/18 11:00 07/09/18 08:41 300 MG Carvedilol (Coreg) 6.25 mg BIDWMEALS 07/08/18 11:00 Cancel Cefepime HCl (Maxipime) 2 gm Q12HR 07/08/18 12:00 07/09/18 08:38 2 GM Cetirizine HCl (ZyrTEC) 10 mg DAILY 07/08/18 09:00 07/09/18 08:42 10 MG Clopidogrel Bisulfate (Plavix) 75 mg DAILY 07/08/18 09:00 07/09/18 08:40 75 MG Diclofenac Sodium (Voltaren) 1 chung BID 07/08/18 21:00 07/09/18 08:47 1 CHUNG Diphenhydramine HCl (Benadryl) 25 mg PRN Q6HRS PRN 07/08/18 20:00 07/08/18 21:56 25 MG Famotidine (Pepcid) 20 mg HS 07/08/18 21:00 07/08/18 21:56 20 MG Fluconazole (Diflucan) 100 mg DAILY 07/08/18 12:00 07/09/18 08:39 100 MG Furosemide (Lasix) 40 mg Q6HRS 07/08/18 18:00 07/09/18 06:17 40 MG Gabapentin (Neurontin) 300 mg HS 07/08/18 21:00 07/08/18 21:56 300 MG Insulin Glargine (Lantus) 80 units BID 07/08/18 21:00 07/09/18 08:45 80 UNITS Insulin Human Lispro (HumaLOG) 70 units TIDWMEALS 07/08/18 12:00 07/09/18 08:30 70 UNITS Lactobacillus Rhamnosus (Culturelle) 1 cap BID 07/08/18 21:00 07/09/18 08:39 1 CAP Linezolid (Zyvox) 600 mg BID 07/08/18 12:00 07/09/18 08:52 600 MG Lisinopril (Prinivil) 20 mg DAILY 07/08/18 09:00 07/09/18 08:41 20 MG Metformin HCl (Glucophage) 1,000 mg BIDWMEALS 07/08/18 08:00 07/09/18 08:28 1,000 MG Metolazone (Zaroxolyn) 5 mg DAILY 07/08/18 14:00 07/09/18 08:42 5 MG Metronidazole (Flagyl) 500 mg Q12HR 07/08/18 12:00 07/09/18 08:40 500 MG Montelukast Sodium (Singulair) 10 mg QHS 07/08/18 21:00 07/08/18 21:56 10 MG Morphine Sulfate (Morphine Sulfate) 4 mg PRN Q2HR PRN 07/07/18 20:15 07/08/18 20:14 DC 07/08/18 19:08 4 MG Nicotine (Nicoderm Cq 21mg) 1 patch DAILY 07/08/18 11:30 07/09/18 08:47 1 PATCH Non-Formulary Medication (Dexlansoprazole (Dexilant)) 1 cap DAILY 07/09/18 09:00 07/09/18 09:00 DC Non-Formulary Medication (Doxycycline Monohydrate ) 1 cap BID 07/08/18 09:00 UNV Non-Formulary Medication (Glycopyrrolate/ Formoterol Fum (Bevespi Aerosphere Inhaler)) 10.7 gm DAILY 07/09/18 09:00 UNV Non-Formulary Medication (Linaclotide (Linzess)) 145 mcg DAILY 07/09/18 09:00 UNV Non-Formulary Medication (Metformin Hcl (Glucophage)) 1,000 mg BIDWMEALS 07/08/18 17:00 UNV Non-Formulary Medication (Montelukast Sodium (Singulair Tablet)) 10 mg HS 07/08/18 21:00 UNV Non-Formulary Medication (Pravastatin Sodium ) 1 tab QHS 07/08/18 21:00 UNV Ondansetron HCl (Zofran) 4 mg PRN Q6HRS PRN 07/08/18 11:15 07/08/18 19:26 4 MG Pantoprazole Sodium (Protonix) 40 mg DAILYAC 07/08/18 07:30 07/09/18 07:41 40 MG Trimethoprim/ Sulfamethoxazole (Bactrim Ds) 1 tab BID 07/08/18 09:00 UNV Vancomycin HCl (Vanco Per Pharmacy) 1 each PRN DAILY PRN 07/07/18 18:45 07/08/18 11:22 DC 07/07/18 21:02 1 EACH Vancomycin HCl (Vancomycin Trough Level) 1 each 1X ONCE 07/08/18 18:30 07/08/18 18:30 DC Vancomycin HCl 1.75 gm/Sodium Chloride 500 ml @ 250 mls/hr Q8H 07/08/18 03:00 07/08/18 11:22 DC 07/08/18 03:22 250 MLS/HR Vancomycin HCl 2 gm/Sodium Chloride 500 ml @ 250 mls/hr 1X ONCE 07/07/18 19:00 07/07/18 20:59 DC 07/07/18 18:54 250 MLS/HR Lab Laboratory Tests Test 07/08/18 11:55 07/08/18 15:45 07/08/18 16:59 07/08/18 21:01 Glucose (Fingerstick) 121 mg/dL (70-99) 79 mg/dL (70-99) 139 mg/dL (70-99) O2 Saturation 88 % (92-99) Arterial Blood pH 7.30 (7.35-7.45) Arterial Blood pCO2 at Patient Temp 39 mmHg (35-46) Arterial Blood pO2 at Patient Temp 59 mmHg (75-108) Arterial Blood HCO3 19 mmol/L (21-28) Arterial Blood Base Excess -7 mmol/L (-3-3) FiO2 21 Test 07/09/18 03:45 07/09/18 08:01 White Blood Count 8.5 x10^3/uL (4.0-11.0) Red Blood Count 4.19 x10^6/uL (4.30-5.70) Hemoglobin 10.1 g/dL (13.0-17.5) Hematocrit 34.2 % (39.0-53.0) Mean Corpuscular Volume 82 fL (79-100) Mean Corpuscular Hemoglobin 24 pg (25-35) Mean Corpuscular Hemoglobin Concent 30 g/dL (31-37) Red Cell Distribution Width 21.2 % (11.5-14.5) Platelet Count 289 x10^3/uL (140-400) Neutrophils (%) (Auto) 65 % (31-73) Lymphocytes (%) (Auto) 15 % (24-48) Monocytes (%) (Auto) 14 % (0-9) Eosinophils (%) (Auto) 5 % (0-3) Basophils (%) (Auto) 1 % (0-3) Neutrophils # (Auto) 5.5 x10^3uL (1.8-7.7) Lymphocytes # (Auto) 1.2 x10^3/uL (1.0-4.8) Monocytes # (Auto) 1.2 x10^3/uL (0.0-1.1) Eosinophils # (Auto) 0.4 x10^3/uL (0.0-0.7) Basophils # (Auto) 0.1 x10^3/uL (0.0-0.2) Erythrocyte Sedimentation Rate 33 (0-15) Sodium Level 138 mmol/L (136-145) Potassium Level 5.2 mmol/L (3.5-5.1) Chloride Level 103 mmol/L (98-107) Carbon Dioxide Level 25 mmol/L (21-32) Anion Gap 10 (6-14) Blood Urea Nitrogen 30 mg/dL (8-26) Creatinine 2.0 mg/dL (0.7-1.3) Estimated GFR (Cockcroft-Gault) 43.7 BUN/Creatinine Ratio 15 (6-20) Glucose Level 161 mg/dL (70-99) Calcium Level 8.3 mg/dL (8.5-10.1) Magnesium Level 2.2 mg/dL (1.8-2.4) Total Bilirubin 0.8 mg/dL (0.2-1.0) Aspartate Amino Transf (AST/SGOT) 29 U/L (15-37) Alanine Aminotransferase (ALT/SGPT) 23 U/L (16-63) Alkaline Phosphatase 264 U/L (46-116) Total Protein 8.7 g/dL (6.4-8.2) Albumin 3.0 g/dL (3.4-5.0) Albumin/Globulin Ratio 0.5 (1.0-1.7) Procalcitonin < 0.10 ng/mL (0.00-0.10) Glucose (Fingerstick) 181 mg/dL (70-99) Results All relevant outside records, renal labs, imaging studies, telemetry/EKG's were reviewed. GILMA GARCES MD Jul 09, 2018 11:05
--- NOTE | 2018-07-09 11:10 | PDOC ---
JUANY PETERS STEAMER TENDER 07/09/18 1110: CARDIO Progress Notes Date and Time Date of Service 07/09/18 Time of Evaluation 1040 Subjective Subjective: No Chest Pain, No Palpitations, Other (SOA improved. legs still swollen) Vitals Vitals Vital Signs Date Time Temp Pulse Resp B/P (MAP) Pulse Ox O2 Delivery O2 Flow Rate FiO2 07/09/18 10:44 96 Nasal Cannula 2.0 07/09/18 08:41 102 143/81 07/09/18 07:30 18 07/09/18 03:00 97.9 97.9 Weight Weight [ ] Input and Output Intake and Output Intake and Output 07/09/18 06:59 Intake Total 4550 ml Output Total 3000 ml Balance 1550 ml Intake Oral 3550 ml IV Total 1000 ml Output Urine Total 3000 ml Laboratory Labs Laboratory Tests Test 07/08/18 11:55 07/08/18 15:45 07/08/18 16:59 07/08/18 21:01 Glucose (Fingerstick) 121 mg/dL (70-99) 79 mg/dL (70-99) 139 mg/dL (70-99) O2 Saturation 88 % (92-99) Arterial Blood pH 7.30 (7.35-7.45) Arterial Blood pCO2 at Patient Temp 39 mmHg (35-46) Arterial Blood pO2 at Patient Temp 59 mmHg (75-108) Arterial Blood HCO3 19 mmol/L (21-28) Arterial Blood Base Excess -7 mmol/L (-3-3) FiO2 21 Test 07/09/18 03:45 07/09/18 08:01 White Blood Count 8.5 x10^3/uL (4.0-11.0) Red Blood Count 4.19 x10^6/uL (4.30-5.70) Hemoglobin 10.1 g/dL (13.0-17.5) Hematocrit 34.2 % (39.0-53.0) Mean Corpuscular Volume 82 fL (79-100) Mean Corpuscular Hemoglobin 24 pg (25-35) Mean Corpuscular Hemoglobin Concent 30 g/dL (31-37) Red Cell Distribution Width 21.2 % (11.5-14.5) Platelet Count 289 x10^3/uL (140-400) Neutrophils (%) (Auto) 65 % (31-73) Lymphocytes (%) (Auto) 15 % (24-48) Monocytes (%) (Auto) 14 % (0-9) Eosinophils (%) (Auto) 5 % (0-3) Basophils (%) (Auto) 1 % (0-3) Neutrophils # (Auto) 5.5 x10^3uL (1.8-7.7) Lymphocytes # (Auto) 1.2 x10^3/uL (1.0-4.8) Monocytes # (Auto) 1.2 x10^3/uL (0.0-1.1) Eosinophils # (Auto) 0.4 x10^3/uL (0.0-0.7) Basophils # (Auto) 0.1 x10^3/uL (0.0-0.2) Erythrocyte Sedimentation Rate 33 (0-15) Sodium Level 138 mmol/L (136-145) Potassium Level 5.2 mmol/L (3.5-5.1) Chloride Level 103 mmol/L (98-107) Carbon Dioxide Level 25 mmol/L (21-32) Anion Gap 10 (6-14) Blood Urea Nitrogen 30 mg/dL (8-26) Creatinine 2.0 mg/dL (0.7-1.3) Estimated GFR (Cockcroft-Gault) 43.7 BUN/Creatinine Ratio 15 (6-20) Glucose Level 161 mg/dL (70-99) Calcium Level 8.3 mg/dL (8.5-10.1) Magnesium Level 2.2 mg/dL (1.8-2.4) Total Bilirubin 0.8 mg/dL (0.2-1.0) Aspartate Amino Transf (AST/SGOT) 29 U/L (15-37) Alanine Aminotransferase (ALT/SGPT) 23 U/L (16-63) Alkaline Phosphatase 264 U/L (46-116) Total Protein 8.7 g/dL (6.4-8.2) Albumin 3.0 g/dL (3.4-5.0) Albumin/Globulin Ratio 0.5 (1.0-1.7) Procalcitonin < 0.10 ng/mL (0.00-0.10) Glucose (Fingerstick) 181 mg/dL (70-99) Microbiology Micro Microbiology 07/07/18 Blood Culture - Preliminary, Resulted NO GROWTH AFTER 1 DAY Physical Exam HEENT: Neck Supple W Full Motion Chest: Symmetric LUNGS: Other (diminished bases) Heart: S1S2, RRR Abdomen: Other (anasarca, scrotal edema ) Extremities: Other (3+ bilateral edema from knees up) Neurology: alert, oriented, follow commands Assessment Assessment 1. Acute on chronic combined systolic/diastolic CHF 2. Anasarca; significant LE/abdominal swelling persists 3. ICM: LVEF 15-20% 4. CAD 5. Morbid obesity, KATIUSKA, hypoventilation syndrome 6. NURY with hyperkalemia; Cr ^ 2.0 7. HTN: controlled 8. DM2/HLP 9. COPD with continued tobaccoism 10. Non-compliance; Sonic burger, chips, and 2L Sprite and Coke at bedside. Recommendations Overall fluid balance +. Intake > 4.5L- reinforced 2000cc FR and 2 Gm Na diet Dietary consult for additional teaching Transfer to [facility] Given significant CMP and renal insufficiency with rising Cr, will start Dobutamine for inotropic support Start Lasix gtt TISH PONCE MD 07/09/18 1722: CARDIO Progress Notes Plan Plan Pt. seen and examined. Agree with above SENIOR DATA MINING ANALYST note. Started on dobutamine and lasix gtt Noted elevated cr still significantly volume overloaded Discussed with Dr. Francisco. Thanks JUANY PETERS APRN Jul 09, 2018 11:10 TISH PONCE MD Jul 09, 2018 17:22
--- NOTE | 2018-07-09 12:11 | NUR ---
Low BS - held insulin;
--- NOTE | 2018-07-09 12:12 | NUR ---
Patient report called for transfer to room 262, at which time Dobutamine and Lasix drips will begin (per Nurse Practiioner). Dr. Willis wrote a prescription for bariatric wc and walker with seat.
--- NOTE | 2018-07-09 12:27 | PDOC ---
PULMONARY PROGRESS NOTES Subjective no new complains Vitals Vital Signs Date Time Temp Pulse Resp B/P (MAP) Pulse Ox O2 Delivery O2 Flow Rate FiO2 07/09/18 11:44 97 Nasal Cannula 2.0 07/09/18 11:00 97.7 86 20 128/83 (98) 97.7 General: Alert, No acute distress Lungs: Other (decrease bases) Cardiovascular: S1 Abdomen: Soft, Other (morbidly obese) Extremities: Other (2+edema) Labs Laboratory Tests Test 07/07/18 18:25 07/07/18 19:10 07/08/18 06:03 07/08/18 09:02 White Blood Count 7.5 x10^3/uL (4.0-11.0) 8.9 x10^3/uL (4.0-11.0) Red Blood Count 4.17 x10^6/uL (4.30-5.70) 4.30 x10^6/uL (4.30-5.70) Hemoglobin 10.3 g/dL (13.0-17.5) 10.5 g/dL (13.0-17.5) Hematocrit 33.6 % (39.0-53.0) 35.2 % (39.0-53.0) Mean Corpuscular Volume 81 fL (79-100) 82 fL (79-100) Mean Corpuscular Hemoglobin 25 pg (25-35) 25 pg (25-35) Mean Corpuscular Hemoglobin Concent 31 g/dL (31-37) 30 g/dL (31-37) Red Cell Distribution Width 20.9 % (11.5-14.5) 21.4 % (11.5-14.5) Platelet Count 287 x10^3/uL (140-400) 276 x10^3/uL (140-400) Neutrophils (%) (Auto) 64 % (31-73) 66 % (31-73) Lymphocytes (%) (Auto) 17 % (24-48) 15 % (24-48) Monocytes (%) (Auto) 13 % (0-9) 15 % (0-9) Eosinophils (%) (Auto) 6 % (0-3) 4 % (0-3) Basophils (%) (Auto) 1 % (0-3) 1 % (0-3) Neutrophils # (Auto) 4.8 x10^3uL (1.8-7.7) 5.9 x10^3uL (1.8-7.7) Lymphocytes # (Auto) 1.2 x10^3/uL (1.0-4.8) 1.3 x10^3/uL (1.0-4.8) Monocytes # (Auto) 1.0 x10^3/uL (0.0-1.1) 1.3 x10^3/uL (0.0-1.1) Eosinophils # (Auto) 0.4 x10^3/uL (0.0-0.7) 0.3 x10^3/uL (0.0-0.7) Basophils # (Auto) 0.1 x10^3/uL (0.0-0.2) 0.1 x10^3/uL (0.0-0.2) Platelet Estimate Adequate (ADEQUATE) Polychromasia Mod Hypochromasia Mod Anisocytosis Mod Sodium Level 140 mmol/L (136-145) 137 mmol/L (136-145) Potassium Level 4.4 mmol/L (3.5-5.1) 5.5 mmol/L (3.5-5.1) Chloride Level 104 mmol/L (98-107) 103 mmol/L (98-107) Carbon Dioxide Level 26 mmol/L (21-32) 26 mmol/L (21-32) Anion Gap 10 (6-14) 8 (6-14) Blood Urea Nitrogen 18 mg/dL (8-26) 24 mg/dL (8-26) Creatinine 0.8 mg/dL (0.7-1.3) 1.5 mg/dL (0.7-1.3) Estimated GFR (Cockcroft-Gault) 125.9 61.0 BUN/Creatinine Ratio 23 (6-20) 16 (6-20) Glucose Level 89 mg/dL (70-99) 129 mg/dL (70-99) Calcium Level 8.6 mg/dL (8.5-10.1) 8.3 mg/dL (8.5-10.1) Magnesium Level 2.2 mg/dL (1.8-2.4) 2.1 mg/dL (1.8-2.4) Total Bilirubin 0.9 mg/dL (0.2-1.0) 1.0 mg/dL (0.2-1.0) Aspartate Amino Transf (AST/SGOT) 35 U/L (15-37) 32 U/L (15-37) Alanine Aminotransferase (ALT/SGPT) 24 U/L (16-63) 25 U/L (16-63) Alkaline Phosphatase 270 U/L (46-116) 265 U/L (46-116) Total Protein 8.6 g/dL (6.4-8.2) 8.6 g/dL (6.4-8.2) Albumin 2.9 g/dL (3.4-5.0) 3.0 g/dL (3.4-5.0) Albumin/Globulin Ratio 0.5 (1.0-1.7) 0.5 (1.0-1.7) Lactic Acid Level 1.5 mmol/L (0.4-2.0) AV-[id number]-Type Natriuretic Peptide 565 pg/mL (0-124) Glucose (Fingerstick) 171 mg/dL (70-99) Test 07/08/18 11:55 07/08/18 15:45 07/08/18 16:59 07/08/18 21:01 Glucose (Fingerstick) 121 mg/dL (70-99) 79 mg/dL (70-99) 139 mg/dL (70-99) O2 Saturation 88 % (92-99) Arterial Blood pH 7.30 (7.35-7.45) Arterial Blood pCO2 at Patient Temp 39 mmHg (35-46) Arterial Blood pO2 at Patient Temp 59 mmHg (75-108) Arterial Blood HCO3 19 mmol/L (21-28) Arterial Blood Base Excess -7 mmol/L (-3-3) FiO2 21 Test 07/09/18 03:45 07/09/18 08:01 07/09/18 10:52 White Blood Count 8.5 x10^3/uL (4.0-11.0) Red Blood Count 4.19 x10^6/uL (4.30-5.70) Hemoglobin 10.1 g/dL (13.0-17.5) Hematocrit 34.2 % (39.0-53.0) Mean Corpuscular Volume 82 fL (79-100) Mean Corpuscular Hemoglobin 24 pg (25-35) Mean Corpuscular Hemoglobin Concent 30 g/dL (31-37) Red Cell Distribution Width 21.2 % (11.5-14.5) Platelet Count 289 x10^3/uL (140-400) Neutrophils (%) (Auto) 65 % (31-73) Lymphocytes (%) (Auto) 15 % (24-48) Monocytes (%) (Auto) 14 % (0-9) Eosinophils (%) (Auto) 5 % (0-3) Basophils (%) (Auto) 1 % (0-3) Neutrophils # (Auto) 5.5 x10^3uL (1.8-7.7) Lymphocytes # (Auto) 1.2 x10^3/uL (1.0-4.8) Monocytes # (Auto) 1.2 x10^3/uL (0.0-1.1) Eosinophils # (Auto) 0.4 x10^3/uL (0.0-0.7) Basophils # (Auto) 0.1 x10^3/uL (0.0-0.2) Erythrocyte Sedimentation Rate 33 (0-15) Sodium Level 138 mmol/L (136-145) Potassium Level 5.2 mmol/L (3.5-5.1) Chloride Level 103 mmol/L (98-107) Carbon Dioxide Level 25 mmol/L (21-32) Anion Gap 10 (6-14) Blood Urea Nitrogen 30 mg/dL (8-26) Creatinine 2.0 mg/dL (0.7-1.3) Estimated GFR (Cockcroft-Gault) 43.7 BUN/Creatinine Ratio 15 (6-20) Glucose Level 161 mg/dL (70-99) Calcium Level 8.3 mg/dL (8.5-10.1) Magnesium Level 2.2 mg/dL (1.8-2.4) Total Bilirubin 0.8 mg/dL (0.2-1.0) Aspartate Amino Transf (AST/SGOT) 29 U/L (15-37) Alanine Aminotransferase (ALT/SGPT) 23 U/L (16-63) Alkaline Phosphatase 264 U/L (46-116) Total Protein 8.7 g/dL (6.4-8.2) Albumin 3.0 g/dL (3.4-5.0) Albumin/Globulin Ratio 0.5 (1.0-1.7) Procalcitonin < 0.10 ng/mL (0.00-0.10) Glucose (Fingerstick) 181 mg/dL (70-99) 110 mg/dL (70-99) Laboratory Tests Test 07/08/18 15:45 07/08/18 16:59 07/08/18 21:01 07/09/18 03:45 O2 Saturation 88 % (92-99) Arterial Blood pH 7.30 (7.35-7.45) Arterial Blood pCO2 at Patient Temp 39 mmHg (35-46) Arterial Blood pO2 at Patient Temp 59 mmHg (75-108) Arterial Blood HCO3 19 mmol/L (21-28) Arterial Blood Base Excess -7 mmol/L (-3-3) FiO2 21 Glucose (Fingerstick) 79 mg/dL (70-99) 139 mg/dL (70-99) White Blood Count 8.5 x10^3/uL (4.0-11.0) Red Blood Count 4.19 x10^6/uL (4.30-5.70) Hemoglobin 10.1 g/dL (13.0-17.5) Hematocrit 34.2 % (39.0-53.0) Mean Corpuscular Volume 82 fL (79-100) Mean Corpuscular Hemoglobin 24 pg (25-35) Mean Corpuscular Hemoglobin Concent 30 g/dL (31-37) Red Cell Distribution Width 21.2 % (11.5-14.5) Platelet Count 289 x10^3/uL (140-400) Neutrophils (%) (Auto) 65 % (31-73) Lymphocytes (%) (Auto) 15 % (24-48) Monocytes (%) (Auto) 14 % (0-9) Eosinophils (%) (Auto) 5 % (0-3) Basophils (%) (Auto) 1 % (0-3) Neutrophils # (Auto) 5.5 x10^3uL (1.8-7.7) Lymphocytes # (Auto) 1.2 x10^3/uL (1.0-4.8) Monocytes # (Auto) 1.2 x10^3/uL (0.0-1.1) Eosinophils # (Auto) 0.4 x10^3/uL (0.0-0.7) Basophils # (Auto) 0.1 x10^3/uL (0.0-0.2) Erythrocyte Sedimentation Rate 33 (0-15) Sodium Level 138 mmol/L (136-145) Potassium Level 5.2 mmol/L (3.5-5.1) Chloride Level 103 mmol/L (98-107) Carbon Dioxide Level 25 mmol/L (21-32) Anion Gap 10 (6-14) Blood Urea Nitrogen 30 mg/dL (8-26) Creatinine 2.0 mg/dL (0.7-1.3) Estimated GFR (Cockcroft-Gault) 43.7 BUN/Creatinine Ratio 15 (6-20) Glucose Level 161 mg/dL (70-99) Calcium Level 8.3 mg/dL (8.5-10.1) Magnesium Level 2.2 mg/dL (1.8-2.4) Total Bilirubin 0.8 mg/dL (0.2-1.0) Aspartate Amino Transf (AST/SGOT) 29 U/L (15-37) Alanine Aminotransferase (ALT/SGPT) 23 U/L (16-63) Alkaline Phosphatase 264 U/L (46-116) Total Protein 8.7 g/dL (6.4-8.2) Albumin 3.0 g/dL (3.4-5.0) Albumin/Globulin Ratio 0.5 (1.0-1.7) Procalcitonin < 0.10 ng/mL (0.00-0.10) Test 07/09/18 08:01 07/09/18 10:52 Glucose (Fingerstick) 181 mg/dL (70-99) 110 mg/dL (70-99) Medications Active Scripts Medications Dose Route/Sig Max Daily Dose Days Date Category Bactrim Ds Tablet (Sulfamethoxazole/Trimethoprim) 1 Each Tablet 1 Tab PO BID 07/07/18 Reported Lisinopril 20 Mg Tablet 1 Tab PO DAILY 07/07/18 Reported Clopidogrel (Clopidogrel Bisulfate) 75 Mg Tablet 1 Tab PO DAILY 07/07/18 Reported Toenriqueta Solostar (Insulin Glargine,Hum.rec.anlog) 300 Unit/1 Ml Insuln.pen 300 Unit SQ BID 07/07/18 Reported Metformin Hcl 1,000 Mg Tablet 1,000 Mg PO BIDWMEALS 07/07/18 Reported Singulair Tablet (Montelukast Sodium) 10 Mg Tablet 1 Tab PO DAILY 07/07/18 Reported Coreg (Carvedilol) 6.25 Mg Tablet 6.25 Mg PO BIDWMEALS 07/07/18 Reported Pravastatin Sodium 20 Mg Tablet 1 Tab PO DAILY 07/07/18 Reported Cetirizine Hcl 10 Mg Tablet 1 Tab PO DAILY 07/07/18 Reported Bumetanide 1 Mg Tablet 1 Tab PO DAILY 07/07/18 Reported Linzess (Linaclotide) 145 Mcg Capsule 145 Mcg PO DAILY07 07/07/18 Reported Dexilant (Dexlansoprazole) 60 Mg Cap.mp 1 Cap PO DAILY 07/07/18 Reported Doxycycline Monohydrate 100 Mg Capsule 1 Cap PO BID 07/07/18 Reported Gabapentin (Gabapentin) 300 Mg Capsule 300 Mg PO HS 30 06/04/18 Rx Cefdinir 300 Mg Capsule 300 Mg PO BID 7 06/04/18 Rx Lantus Solostar (Insulin Glargine,Hum.rec.anlog) 100 Unit/1 Ml Insuln.pen 100 Unit SQ BID 06/04/18 Rx Humalog (Insulin Lispro) 100 Unit/1 Ml Vial 70 Unit SQ TIDAC 30 06/04/18 Rx Bevespi Aerosphere Inhaler (Glycopyrrolate/Formoterol Fum) 10.7 Gm Hfa.aer.ad 10.7 Gm IH DAILY 05/31/18 Reported Wellbutrin Xl (Bupropion Hcl) 300 Mg Tab.er.24h 1 Tab PO DAILY 01/19/18 Rx Furosemide 80 Mg Tablet 80 Mg PO DAILY 30 01/19/18 Rx Duoneb 0.5-3(2.5) Mg/3 Ml (Albuterol/Ipratropium) 3 Ml Ampul.neb 3 Ml NEB RTQID 30 01/19/18 Rx Carvedilol (Carvedilol) 6.25 Mg Tablet 1 Tab PO BID 01/15/18 Reported Pravastatin Sodium 20 Mg Tablet 1 Tab PO QHS 01/15/18 Reported Singulair Tablet (Montelukast Sodium) 10 Mg Tablet 10 Mg PO HS 01/15/18 Reported Famotidine 20 Mg Tablet 20 Mg PO HS 01/15/18 Reported Dexilant (Dexlansoprazole) 60 Mg Cap.mp 1 Cap PO DAILY 01/15/18 Reported Linzess (Linaclotide) 145 Mcg Capsule 145 Mcg PO DAILY 01/15/18 Reported Glucophage (Metformin Hcl) 1,000 Mg Tablet 1,000 Mg PO BIDWMEALS 04/04/17 Rx Lisinopril 20 Mg Tablet 20 Mg PO DAILY 04/04/17 Rx Aspirin Ec (Aspirin) 81 Mg Tablet. 81 Mg PO DAILYWBKFT 04/04/17 Rx Impression . 1. Acute hypoxic respiratory failure secondary to multifactorial etiologies includes combination of underlying chronic obstructive pulmonary disease with exacerbation, acute on chronic systolic heart failure with an ejection fraction now of of 15-20% and 75-pound weight gain in the last 6 months. 2. Abnormal previous CT chest and chest x-ray with bilateral interstitial infiltrates. This is a patient with severe cardiomyopathy and a two-vessel percutaneous coronary intervention done last year. I suspect ongoing systolic heart failure and less likely ILD. 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 Poor compliance 4. Lower extremity cellulitis and lymphedema. 5. Morbid obesity. 6. Severe cardiomyopathy with previous echo with an ejection fraction of 15-20% and status post percutaneous coronary intervention of right coronary artery. 7. H/O Severe KATIUSKA 8. CKD Plan . 1. Discussed with the patient the importance of losing weight. He has put on 75 pounds in the last 6 months. 2. Continue present oxygen. 3. d/w Renal. Would start lasix drip for 24 hr and monitor renal function 4. empiric CPAP in the hospital 5. diuresis./ cardiology rec 6. Set up CPAP as an outpatient. 7. Smoking cessation counseling provided. 8. CT chest reviewed. Not sig changed from previous one/ suspect ongoing mild CHF LORI ROBERTS MD Jul 09, 2018 12:27
--- NOTE | 2018-07-09 12:30 | NUR ---
Patient was escorted by staff, via wheelchair to unit 2 [facility].
--- NOTE | 2018-07-09 12:40 | NUR ---
JOSE DANIEL phoned and faxed orders for DME to [employer]. Awaiting to hear back if it is approved.
--- NOTE | 2018-07-09 12:48 | PDOC ---
PROGRESS NOTES Subjective Subjective He admits continued pain and stiffness in his knees and low back. Objective Objective Vital Signs Date Time Temp Pulse Resp B/P (MAP) Pulse Ox O2 Delivery O2 Flow Rate FiO2 07/09/18 11:44 97 Nasal Cannula 2.0 07/09/18 11:00 97.7 86 20 128/83 (98) 97.7 Intake and Output 07/09/18 06:59 Intake Total 4550 ml Output Total 3000 ml Balance 1550 ml Intake Oral 3550 ml IV Total 1000 ml Output Urine Total 3000 ml Physical Exam Physical Exam He is sitting up in bedside chair and he did walk with roller walker with physical therapy. Assessment Assessment Problems Medical Problems: (1) Bilateral lower leg cellulitis Status: Acute Plan Plan of Care To get him up as tolerated and to consider injecting his knees and back and hips as needed. Comment Review of Relevant I have reviewed the following items mukund (where applicable) has been applied. Labs Laboratory Tests Test 07/07/18 18:25 07/07/18 19:10 07/08/18 06:03 07/08/18 09:02 White Blood Count 7.5 x10^3/uL (4.0-11.0) 8.9 x10^3/uL (4.0-11.0) Red Blood Count 4.17 x10^6/uL (4.30-5.70) 4.30 x10^6/uL (4.30-5.70) Hemoglobin 10.3 g/dL (13.0-17.5) 10.5 g/dL (13.0-17.5) Hematocrit 33.6 % (39.0-53.0) 35.2 % (39.0-53.0) Mean Corpuscular Volume 81 fL (79-100) 82 fL (79-100) Mean Corpuscular Hemoglobin 25 pg (25-35) 25 pg (25-35) Mean Corpuscular Hemoglobin Concent 31 g/dL (31-37) 30 g/dL (31-37) Red Cell Distribution Width 20.9 % (11.5-14.5) 21.4 % (11.5-14.5) Platelet Count 287 x10^3/uL (140-400) 276 x10^3/uL (140-400) Neutrophils (%) (Auto) 64 % (31-73) 66 % (31-73) Lymphocytes (%) (Auto) 17 % (24-48) 15 % (24-48) Monocytes (%) (Auto) 13 % (0-9) 15 % (0-9) Eosinophils (%) (Auto) 6 % (0-3) 4 % (0-3) Basophils (%) (Auto) 1 % (0-3) 1 % (0-3) Neutrophils # (Auto) 4.8 x10^3uL (1.8-7.7) 5.9 x10^3uL (1.8-7.7) Lymphocytes # (Auto) 1.2 x10^3/uL (1.0-4.8) 1.3 x10^3/uL (1.0-4.8) Monocytes # (Auto) 1.0 x10^3/uL (0.0-1.1) 1.3 x10^3/uL (0.0-1.1) Eosinophils # (Auto) 0.4 x10^3/uL (0.0-0.7) 0.3 x10^3/uL (0.0-0.7) Basophils # (Auto) 0.1 x10^3/uL (0.0-0.2) 0.1 x10^3/uL (0.0-0.2) Platelet Estimate Adequate (ADEQUATE) Polychromasia Mod Hypochromasia Mod Anisocytosis Mod Sodium Level 140 mmol/L (136-145) 137 mmol/L (136-145) Potassium Level 4.4 mmol/L (3.5-5.1) 5.5 mmol/L (3.5-5.1) Chloride Level 104 mmol/L (98-107) 103 mmol/L (98-107) Carbon Dioxide Level 26 mmol/L (21-32) 26 mmol/L (21-32) Anion Gap 10 (6-14) 8 (6-14) Blood Urea Nitrogen 18 mg/dL (8-26) 24 mg/dL (8-26) Creatinine 0.8 mg/dL (0.7-1.3) 1.5 mg/dL (0.7-1.3) Estimated GFR (Cockcroft-Gault) 125.9 61.0 BUN/Creatinine Ratio 23 (6-20) 16 (6-20) Glucose Level 89 mg/dL (70-99) 129 mg/dL (70-99) Calcium Level 8.6 mg/dL (8.5-10.1) 8.3 mg/dL (8.5-10.1) Magnesium Level 2.2 mg/dL (1.8-2.4) 2.1 mg/dL (1.8-2.4) Total Bilirubin 0.9 mg/dL (0.2-1.0) 1.0 mg/dL (0.2-1.0) Aspartate Amino Transf (AST/SGOT) 35 U/L (15-37) 32 U/L (15-37) Alanine Aminotransferase (ALT/SGPT) 24 U/L (16-63) 25 U/L (16-63) Alkaline Phosphatase 270 U/L (46-116) 265 U/L (46-116) Total Protein 8.6 g/dL (6.4-8.2) 8.6 g/dL (6.4-8.2) Albumin 2.9 g/dL (3.4-5.0) 3.0 g/dL (3.4-5.0) Albumin/Globulin Ratio 0.5 (1.0-1.7) 0.5 (1.0-1.7) Lactic Acid Level 1.5 mmol/L (0.4-2.0) CV-Foi-W-Type Natriuretic Peptide 565 pg/mL (0-124) Glucose (Fingerstick) 171 mg/dL (70-99) Test 07/08/18 11:55 07/08/18 15:45 07/08/18 16:59 07/08/18 21:01 Glucose (Fingerstick) 121 mg/dL (70-99) 79 mg/dL (70-99) 139 mg/dL (70-99) O2 Saturation 88 % (92-99) Arterial Blood pH 7.30 (7.35-7.45) Arterial Blood pCO2 at Patient Temp 39 mmHg (35-46) Arterial Blood pO2 at Patient Temp 59 mmHg (75-108) Arterial Blood HCO3 19 mmol/L (21-28) Arterial Blood Base Excess -7 mmol/L (-3-3) FiO2 21 Test 07/09/18 03:45 07/09/18 08:01 07/09/18 10:52 White Blood Count 8.5 x10^3/uL (4.0-11.0) Red Blood Count 4.19 x10^6/uL (4.30-5.70) Hemoglobin 10.1 g/dL (13.0-17.5) Hematocrit 34.2 % (39.0-53.0) Mean Corpuscular Volume 82 fL (79-100) Mean Corpuscular Hemoglobin 24 pg (25-35) Mean Corpuscular Hemoglobin Concent 30 g/dL (31-37) Red Cell Distribution Width 21.2 % (11.5-14.5) Platelet Count 289 x10^3/uL (140-400) Neutrophils (%) (Auto) 65 % (31-73) Lymphocytes (%) (Auto) 15 % (24-48) Monocytes (%) (Auto) 14 % (0-9) Eosinophils (%) (Auto) 5 % (0-3) Basophils (%) (Auto) 1 % (0-3) Neutrophils # (Auto) 5.5 x10^3uL (1.8-7.7) Lymphocytes # (Auto) 1.2 x10^3/uL (1.0-4.8) Monocytes # (Auto) 1.2 x10^3/uL (0.0-1.1) Eosinophils # (Auto) 0.4 x10^3/uL (0.0-0.7) Basophils # (Auto) 0.1 x10^3/uL (0.0-0.2) Erythrocyte Sedimentation Rate 33 (0-15) Sodium Level 138 mmol/L (136-145) Potassium Level 5.2 mmol/L (3.5-5.1) Chloride Level 103 mmol/L (98-107) Carbon Dioxide Level 25 mmol/L (21-32) Anion Gap 10 (6-14) Blood Urea Nitrogen 30 mg/dL (8-26) Creatinine 2.0 mg/dL (0.7-1.3) Estimated GFR (Cockcroft-Gault) 43.7 BUN/Creatinine Ratio 15 (6-20) Glucose Level 161 mg/dL (70-99) Calcium Level 8.3 mg/dL (8.5-10.1) Magnesium Level 2.2 mg/dL (1.8-2.4) Total Bilirubin 0.8 mg/dL (0.2-1.0) Aspartate Amino Transf (AST/SGOT) 29 U/L (15-37) Alanine Aminotransferase (ALT/SGPT) 23 U/L (16-63) Alkaline Phosphatase 264 U/L (46-116) Total Protein 8.7 g/dL (6.4-8.2) Albumin 3.0 g/dL (3.4-5.0) Albumin/Globulin Ratio 0.5 (1.0-1.7) Procalcitonin < 0.10 ng/mL (0.00-0.10) Glucose (Fingerstick) 181 mg/dL (70-99) 110 mg/dL (70-99) Laboratory Tests Test 07/08/18 15:45 07/08/18 16:59 07/08/18 21:01 07/09/18 03:45 O2 Saturation 88 % (92-99) Arterial Blood pH 7.30 (7.35-7.45) Arterial Blood pCO2 at Patient Temp 39 mmHg (35-46) Arterial Blood pO2 at Patient Temp 59 mmHg (75-108) Arterial Blood HCO3 19 mmol/L (21-28) Arterial Blood Base Excess -7 mmol/L (-3-3) FiO2 21 Glucose (Fingerstick) 79 mg/dL (70-99) 139 mg/dL (70-99) White Blood Count 8.5 x10^3/uL (4.0-11.0) Red Blood Count 4.19 x10^6/uL (4.30-5.70) Hemoglobin 10.1 g/dL (13.0-17.5) Hematocrit 34.2 % (39.0-53.0) Mean Corpuscular Volume 82 fL (79-100) Mean Corpuscular Hemoglobin 24 pg (25-35) Mean Corpuscular Hemoglobin Concent 30 g/dL (31-37) Red Cell Distribution Width 21.2 % (11.5-14.5) Platelet Count 289 x10^3/uL (140-400) Neutrophils (%) (Auto) 65 % (31-73) Lymphocytes (%) (Auto) 15 % (24-48) Monocytes (%) (Auto) 14 % (0-9) Eosinophils (%) (Auto) 5 % (0-3) Basophils (%) (Auto) 1 % (0-3) Neutrophils # (Auto) 5.5 x10^3uL (1.8-7.7) Lymphocytes # (Auto) 1.2 x10^3/uL (1.0-4.8) Monocytes # (Auto) 1.2 x10^3/uL (0.0-1.1) Eosinophils # (Auto) 0.4 x10^3/uL (0.0-0.7) Basophils # (Auto) 0.1 x10^3/uL (0.0-0.2) Erythrocyte Sedimentation Rate 33 (0-15) Sodium Level 138 mmol/L (136-145) Potassium Level 5.2 mmol/L (3.5-5.1) Chloride Level 103 mmol/L (98-107) Carbon Dioxide Level 25 mmol/L (21-32) Anion Gap 10 (6-14) Blood Urea Nitrogen 30 mg/dL (8-26) Creatinine 2.0 mg/dL (0.7-1.3) Estimated GFR (Cockcroft-Gault) 43.7 BUN/Creatinine Ratio 15 (6-20) Glucose Level 161 mg/dL (70-99) Calcium Level 8.3 mg/dL (8.5-10.1) Magnesium Level 2.2 mg/dL (1.8-2.4) Total Bilirubin 0.8 mg/dL (0.2-1.0) Aspartate Amino Transf (AST/SGOT) 29 U/L (15-37) Alanine Aminotransferase (ALT/SGPT) 23 U/L (16-63) Alkaline Phosphatase 264 U/L (46-116) Total Protein 8.7 g/dL (6.4-8.2) Albumin 3.0 g/dL (3.4-5.0) Albumin/Globulin Ratio 0.5 (1.0-1.7) Procalcitonin < 0.10 ng/mL (0.00-0.10) Test 07/09/18 08:01 07/09/18 10:52 Glucose (Fingerstick) 181 mg/dL (70-99) 110 mg/dL (70-99) Microbiology 07/07/18 Blood Culture - Preliminary, Resulted NO GROWTH AFTER 1 DAY Medications Current Medications Ondansetron HCl (Zofran) 4 mg 1X ONCE IV Last administered on 07/07/18 18:36; Start 07/07/18 at 18:15; Stop 07/07/18 at 18:16; Status DC Morphine Sulfate (Morphine Sulfate) 4 mg 1X ONCE IV Last administered on at 18:38; Start 07/07/18 at 18:15; Stop 07/07/18 at 18:16; Status DC Vancomycin HCl (Vanco Per Pharmacy) 1 each PRN DAILY PRN MC SEE COMMENTS Last administered on 07/07/18at 21:02; Start 07/07/18 at 18:45; Stop 07/08/18 at 11:22; Status DC Vancomycin HCl 2 gm/Sodium Chloride 500 ml @ 250 mls/hr 1X ONCE IV Last administered on 07/07/18 18:54; Start 07/07/18 at 19:00; Stop 07/07/18 at 20:59; Status DC Morphine Sulfate (Morphine Sulfate) 4 mg PRN Q2HR PRN IV PAIN Last administered on 07/08/18 19:08; Start 07/07/18 at 20:15; Stop 07/08/18 at 20:14; Status DC Acetaminophen (Tylenol) 650 mg PRN Q4HRS PRN PO FEVER; Start 07/07/18 at 20:15; Stop 07/08/18 at 20:14; Status DC Vancomycin HCl 1.75 gm/Sodium Chloride 500 ml @ 250 mls/hr Q8H IV Last administered on 07/08/18 03:22; Start 07/08/18 at 03:00; Stop 07/08/18 at 11:22; Status DC Vancomycin HCl (Vancomycin Trough Level) 1 each 1X ONCE MC ; Start 07/08/18 at 18:30; Stop 07/08/18 at 18:30; Status DC Albuterol Sulfate (Ventolin Neb Soln) 2.5 mg PRN Q4HRS PRN NEB SHORTNESS OF BREATH Last administered on 07/08/18 08:01; Start 07/07/18 at 23:15 Bumetanide (Bumex) 1 mg DAILY PO Last administered on 07/08/18 09:06; Start 07/08/18 at 09:00; Stop 07/08/18 at 13:02; Status DC Carvedilol (Coreg) 6.25 mg BIDWMEALS PO Last administered on 07/09/18 08:27; Start 07/08/18 at 08:00 Carvedilol (Coreg) 6.25 mg BIDWMEALS PO ; Start 07/08/18 at 08:00; Status UNV Cetirizine HCl (ZyrTEC) 10 mg DAILY PO Last administered on 07/09/18 08:42; Start 07/08/18 at 09:00 Clopidogrel Bisulfate (Plavix) 75 mg DAILY PO Last administered on 07/09/18 08: 40; Start 07/08/18 at 09:00 Lisinopril (Prinivil) 20 mg DAILY PO Last administered on 07/09/18 08:41; Start 07/08/18 at 09:00 Trimethoprim/ Sulfamethoxazole (Bactrim Ds) 1 tab BID PO ; Start 07/08/18 at 09: 00; Status UNV Pantoprazole Sodium (Protonix) 40 mg DAILYAC PO Last administered on 07/09/18 07:41; Start 07/08/18 at 07:30 Non-Formulary Medication (Doxycycline Monohydrate ) 1 cap BID PO ; Start at 09:00; Status UNV Insulin Glargine (Lantus) 80 units DAILYAC SQ Last administered on 07/08/18 09: 42; Start 07/08/18 at 07:30; Stop 07/08/18 at 10:21; Status DC Non-Formulary Medication (Linaclotide (Linzess)) 145 mcg DAILY07 PO Last administered on 07/09/18 07:00; Start 07/08/18 at 07:00; Status UNV Metformin HCl (Glucophage) 1,000 mg BIDWMEALS PO Last administered on 07/09/18 08:28; Start 07/08/18 at 08:00 Montelukast Sodium (Singulair) 10 mg QHS PO Last administered on 07/08/18 21:56 ; Start 07/08/18 at 21:00 Atorvastatin Calcium (Lipitor) 5 mg QHS PO Last administered on 07/08/18 21:56 ; Start 07/08/18 at 21:00 Insulin Glargine (Lantus) 80 units 1400 SQ ; Start 07/08/18 at 14:00; Status Cancel Aspirin (Ecotrin) 81 mg DAILYWBKFT PO Last administered on 07/09/18 08:28; Start 07/08/18 at 11:00 Carvedilol (Coreg) 6.25 mg BIDWMEALS PO ; Start 07/08/18 at 11:00; Status Cancel Famotidine (Pepcid) 20 mg HS PO Last administered on 07/08/18 21:56; Start 07/08 at 21:00 Furosemide (Lasix) 80 mg DAILY PO Last administered on 07/08/18 12:47; Start at 11:00; Stop 07/08/18 at 13:02; Status DC Gabapentin (Neurontin) 300 mg HS PO Last administered on 07/08/18 21:56; Start 07/08/18 at 21:00 Insulin Glargine (Lantus) 100 units BID SQ ; Start 07/08/18 at 21:00; Status Cancel Insulin Human Lispro (HumaLOG) 70 units TIDWMEALS SQ Last administered on 08:30; Start 07/08/18 at 12:00 Albuterol/ Ipratropium (Duoneb) 3 ml RTQID NEB Last administered on 07/09/18 11 :27; Start 07/08/18 at 12:00 Bupropion HCl (Wellbutrin Xl) 300 mg DAILY PO Last administered on 07/09/18 08: 41; Start 07/08/18 at 11:00 Non-Formulary Medication (Dexlansoprazole (Dexilant)) 1 cap DAILY PO ; Start 07/09/18 at 09:00; Stop 07/09/18 at 09:00; Status DC Non-Formulary Medication (Glycopyrrolate/ Formoterol Fum (Bevespi Aerosphere Inhaler)) 10.7 gm DAILY IH ; Start 07/09/18 at 09:00; Status UNV Non-Formulary Medication (Linaclotide (Linzess)) 145 mcg DAILY PO ; Start at 09:00; Status UNV Non-Formulary Medication (Metformin Hcl (Glucophage)) 1,000 mg BIDWMEALS PO ; Start 07/08/18 at 17:00; Status UNV Non-Formulary Medication (Montelukast Sodium (Singulair Tablet)) 10 mg HS PO ; Start 07/08/18 at 21:00; Status UNV Non-Formulary Medication (Pravastatin Sodium ) 1 tab QHS PO ; Start 07/08/18 at 21:00; Status UNV Insulin Glargine (Lantus) 80 units BID SQ Last administered on 07/09/18 08:45; Start 07/08/18 at 21:00 Ondansetron HCl (Zofran) 4 mg PRN Q6HRS PRN IV NAUSEA/VOMITING Last administered on 07/08/18 19:26; Start 07/08/18 at 11:15 Nicotine (Nicoderm Cq 21mg) 1 patch DAILY TD Last administered on 07/09/18 08: 47; Start 07/08/18 at 11:30 Albuterol Sulfate (Ventolin Neb Soln) 2.5 mg RTQID NEB ; Start 07/08/18 at 12:00 ; Stop 07/08/18 at 12:01; Status DC Linezolid (Zyvox) 600 mg BID PO Last administered on 07/09/18 08:52; Start 07/08 at 12:00 Metronidazole (Flagyl) 500 mg Q12HR PO Last administered on 07/09/18 08:40; Start 07/08/18 at 12:00 Fluconazole (Diflucan) 100 mg DAILY PO Last administered on 07/09/18 08:39; Start 07/08/18 at 12:00 Cefepime HCl (Maxipime) 2 gm Q12HR IVP Last administered on 07/09/18 08:38; Start 07/08/18 at 12:00 Diclofenac Sodium (Voltaren) 1 chung BID TP Last administered on 07/09/18 08:47; Start 07/08/18 at 21:00 Metolazone (Zaroxolyn) 5 mg DAILY PO Last administered on 07/09/18 08:42; Start 07/08/18 at 14:00 Furosemide (Lasix) 40 mg 1X ONCE IVP Last administered on 07/08/18 17:56; Start 07/08/18 at 13:00; Stop 07/08/18 at 13:19; Status DC Furosemide (Lasix) 40 mg Q6HRS IVP Last administered on 4/4/19at 06:17; Start 07/08/18 at 18:00; Stop 07/09/18 at 11:26; Status DC Diphenhydramine HCl (Benadryl) 25 mg PRN Q6HRS PRN PO ITCHING Last administered on 07/08/18at 21:56; Start 07/08/18 at 20:00 Lactobacillus Rhamnosus (Culturelle) 1 cap BID PO Last administered on at 08:39; Start 07/08/18 at 21:00 Acetaminophen/ Hydrocodone Bitart (Lortab 5/325) 1 tab PRN Q4HRS PRN PO PAIN Last administered on 07/09/18at 10:44; Start 07/09/18 at 10:30 Dobutamine HCl/ Dextrose 250 ml @ 32.318 mls/ hr CONT PRN IV PER PROTOCOL; Start 07/09/18 at 11:30 Furosemide 100 mg/ Sodium Chloride 100 ml @ 5 mls/hr CONT PRN IV SEE I/O RECORD ; Start 07/09/18 at 11:15 Active Scripts Active Gabapentin (Gabapentin) 300 Mg Capsule 300 Mg PO HS 30 Days Cefdinir 300 Mg Capsule 300 Mg PO BID 7 Days Lantus Solostar (Insulin Glargine,Hum.rec.anlog) 100 Unit/1 Ml Insuln.pen 100 Unit SQ BID Humalog (Insulin Lispro) 100 Unit/1 Ml Vial 70 Unit SQ TIDAC 30 Days Wellbutrin Xl (Bupropion Hcl) 300 Mg Tab.er.24h 1 Tab PO DAILY Furosemide 80 Mg Tablet 80 Mg PO DAILY 30 Days Duoneb 0.5-3(2.5) Mg/3 Ml (Albuterol/Ipratropium) 3 Ml Ampul.neb 3 Ml NEB RTQID 30 Days Glucophage (Metformin Hcl) 1,000 Mg Tablet 1,000 Mg PO BIDWMEALS Lisinopril 20 Mg Tablet 20 Mg PO DAILY Aspirin Ec (Aspirin) 81 Mg Tablet. 81 Mg PO DAILYWBKFT Reported Bactrim Ds Tablet (Sulfamethoxazole/Trimethoprim) 1 Each Tablet 1 Tab PO BID Lisinopril 20 Mg Tablet 1 Tab PO DAILY Clopidogrel (Clopidogrel Bisulfate) 75 Mg Tablet 1 Tab PO DAILY Devaughn Solostar (Insulin Glargine,Hum.rec.anlog) 300 Unit/1 Ml Insuln.pen 300 Unit SQ BID Metformin Hcl 1,000 Mg Tablet 1,000 Mg PO BIDWMEALS Singulair Tablet (Montelukast Sodium) 10 Mg Tablet 1 Tab PO DAILY Coreg (Carvedilol) 6.25 Mg Tablet 6.25 Mg PO BIDWMEALS Pravastatin Sodium 20 Mg Tablet 1 Tab PO DAILY Cetirizine Hcl 10 Mg Tablet 1 Tab PO DAILY Bumetanide 1 Mg Tablet 1 Tab PO DAILY Linzess (Linaclotide) 145 Mcg Capsule 145 Mcg PO DAILY07 Dexilant (Dexlansoprazole) 60 Mg Cap. 1 Cap PO DAILY Doxycycline Monohydrate 100 Mg Capsule 1 Cap PO BID Bevespi Aerosphere Inhaler (Glycopyrrolate/Formoterol Fum) 10.7 Gm Hfa.aer.ad 10.7 Gm IH DAILY Carvedilol (Carvedilol) 6.25 Mg Tablet 1 Tab PO BID Pravastatin Sodium 20 Mg Tablet 1 Tab PO QHS Singulair Tablet (Montelukast Sodium) 10 Mg Tablet 10 Mg PO HS Famotidine 20 Mg Tablet 20 Mg PO HS Dexilant (Dexlansoprazole) 60 Mg Cap. 1 Cap PO DAILY Linzess (Linaclotide) 145 Mcg Capsule 145 Mcg PO DAILY Vitals/I & O Vital Sign - Last 24 Hours 07/08/18 07/08/18 07/08/18 07/08/18 15:00 15:44 19:00 19:08 Temp 97.7 97.5 97.7 97.5 Pulse 67 89 Resp 20 20 20 B/P (MAP) 94/58 (70) 135/92 (106) Pulse Ox 86 90 94 O2 Delivery Nasal Cannula Room Air Nasal Cannula Nasal Cannula O2 Flow Rate 3.0 2.0 3.0 07/08/18 07/08/18 07/08/18 07/08/18 19:14 20:00 21:28 23:00 Temp 98.3 98.3 Pulse 94 88 B/P (MAP) 135/92 149/86 (107) Pulse Ox 89 95 O2 Delivery Nasal Cannula Room Air Nasal Cannula O2 Flow Rate 3.0 07/09/18 07/09/18 07/09/18 07/09/18 00:09 00:15 03:00 07:30 Temp 98.0 97.9 98.0 97.9 Pulse 88 84 102 Resp 18 16 18 B/P (MAP) 149/86 (107) 140/88 (105) 143/81 (101) Pulse Ox 95 96 91 90 O2 Delivery Nasal Cannula BiPAP/CPAP Nasal Cannula O2 Flow Rate 2.0 2.0 2.0 07/09/18 07/09/18 07/09/18 07/09/18 07:31 08:00 08:27 08:41 Pulse 102 102 B/P (MAP) 143/81 143/81 Pulse Ox 96 O2 Delivery Room Air Nasal Cannula O2 Flow Rate 2.0 07/09/18 07/09/18 07/09/18 07/09/18 10:44 11:00 11:29 11:44 Temp 97.7 97.7 Pulse 86 Resp 20 B/P (MAP) 128/83 (98) Pulse Ox 96 97 97 O2 Delivery Nasal Cannula Room Air Room Air Nasal Cannula O2 Flow Rate 2.0 2.0 Intake and Output 07/08/18 07/08/18 07/09/18 14:59 22:59 06:59 Intake Total 750 ml 800 ml 3000 ml Output Total 350 ml 2650 ml Balance 750 ml 450 ml 350 ml ALVARO RHOADES MD Jul 09, 2018 12:48
[2018-07-09] MEDS: FUROSEMIDE INJ 100 MG in IV NORMAL SALINE 100ML 100 ML IV PRN (13:17)
[2018-07-09] MEDS: diphenhydrAMINE HCL 25 MG CAPSULE PO PRN ×2 (13:32→22:33)
--- NOTE | 2018-07-09 16:09 | NUR ---
Spoke with Ammy at [facility] and she reported insurance will not pay for both walker and w/c, it will have to be either one. She also discussed Physician needs to document why these DME are needed in the EMR or it will not be approved. RN notified.
--- NOTE | 2018-07-09 19:48 | NUR ---
cALLED FOR bARIATRIC bED TO ACCOMODATE PTS SIZE. pT MOVED TO ROOM 260 FROM 262.
[2018-07-09] MEDS: ATORVASTATIN CALCIUM 10 MG TABLET. PO SCH (21:04)
[2018-07-09] MEDS: MONTELUKAST SODIUM 10 MG TABLET. PO SCH (21:04)
[2018-07-09] MEDS: FAMOTIDINE 20 MG TABLET. PO SCH (21:05)
[2018-07-09] MEDS: GABAPENTIN 300 MG CAPSULE. PO SCH (21:05)
[2018-07-10] VITALS (7 sets, daily range): BP systolic 114–145; BP diastolic 64–97
[2018-07-10 05:08] LABS: BASO # 0.1 x10^3/uL (0.0-0.2); BASO % 1 % (0-3); EOS # 0.5 x10^3/uL (0.0-0.7); EOS % 6 % (0-3); HEMATOCRIT 31.9 % (39.0-53.0); HEMOGLOBIN 9.6 g/dL (13.0-17.5); LYMPH % 12 % (24-48); MEAN CORPUSCULAR HEMOGLOBIN 24 pg (25-35); MEAN CORPUSCULAR HGB CONC 30 g/dL (31-37); MEAN CORPUSCULAR VOLUME 80 fL (79-100); MONO # 1.2 x10^3/uL (0.0-1.1); MONO % 15 % (0-9); NEUT # 5.5 x10^3uL (1.8-7.7); NEUT % 67 % (31-73); PLATELET COUNT 266 x10^3/uL (140-400); RED BLOOD COUNT 3.99 x10^6/uL (4.30-5.70); RED CELL DISTRIBUTION WIDTH 21.2 % (11.5-14.5); WHITE BLOOD COUNT 8.2 x10^3/uL (4.0-11.0)
[2018-07-10 05:27] LABS: CALCIUM 8.4 mg/dL (8.5-10.1); CREATININE 1.9 mg/dL (0.7-1.3); GFR 46.4; POTASSIUM 5.2 mmol/L (3.5-5.1)
[2018-07-10] MEDS: PANTOPRAZOLE 40 MG TABLET.DR. PO SCH (06:21)
--- NOTE | 2018-07-10 07:50 | PDOC ---
Infectious Disease Note Vital Sign Vital Signs Vital Signs Date Time Temp Pulse Resp B/P (MAP) Pulse Ox O2 Delivery O2 Flow Rate FiO2 07/10/18 07:25 97.5 91 20 130/79 (96) 94 Nasal Cannula 4.0 97.5 Physical Exam PHYSICAL EXAM CONSTITUTIONAL: He is cooperative. He is in no acute distress. He is sitting on the side of the bed. HEENT: Pupils equal and reactive. Oral cavity, pharynx is clear. NECK: Supple. LUNGS: Clear to auscultation. HEART: S1, S2. ABDOMEN: Morbidly obese, soft, no guarding, no rebound. He has got some pitting thickness of his lower extremity abdominal area. EXTREMITIES: No clubbing, cyanosis. He has chronic swelling of the bilateral lower extremities, left greater than right and also had some fullness and thickening of groin tissue of his left thigh. SKIN: Otherwise warm to touch without signs of rash. NEUROLOGIC: Nonfocal and appropriate. PSYCHIATRIC: Affect is pleasant. Labs Lab Laboratory Tests Test 07/09/18 08:01 07/09/18 10:52 07/09/18 16:42 07/09/18 20:55 Glucose (Fingerstick) 181 mg/dL (70-99) 110 mg/dL (70-99) 133 mg/dL (70-99) 132 mg/dL (70-99) Test 07/10/18 04:30 07/10/18 07:20 White Blood Count 8.2 x10^3/uL (4.0-11.0) Red Blood Count 3.99 x10^6/uL (4.30-5.70) Hemoglobin 9.6 g/dL (13.0-17.5) Hematocrit 31.9 % (39.0-53.0) Mean Corpuscular Volume 80 fL (79-100) Mean Corpuscular Hemoglobin 24 pg (25-35) Mean Corpuscular Hemoglobin Concent 30 g/dL (31-37) Red Cell Distribution Width 21.2 % (11.5-14.5) Platelet Count 266 x10^3/uL (140-400) Neutrophils (%) (Auto) 67 % (31-73) Lymphocytes (%) (Auto) 12 % (24-48) Monocytes (%) (Auto) 15 % (0-9) Eosinophils (%) (Auto) 6 % (0-3) Basophils (%) (Auto) 1 % (0-3) Neutrophils # (Auto) 5.5 x10^3uL (1.8-7.7) Lymphocytes # (Auto) 1.0 x10^3/uL (1.0-4.8) Monocytes # (Auto) 1.2 x10^3/uL (0.0-1.1) Eosinophils # (Auto) 0.5 x10^3/uL (0.0-0.7) Basophils # (Auto) 0.1 x10^3/uL (0.0-0.2) Sodium Level 142 mmol/L (136-145) Potassium Level 5.2 mmol/L (3.5-5.1) Chloride Level 107 mmol/L (98-107) Carbon Dioxide Level 24 mmol/L (21-32) Anion Gap 11 (6-14) Blood Urea Nitrogen 36 mg/dL (8-26) Creatinine 1.9 mg/dL (0.7-1.3) Estimated GFR (Cockcroft-Gault) 46.4 Glucose Level 123 mg/dL (70-99) Calcium Level 8.4 mg/dL (8.5-10.1) Glucose (Fingerstick) 158 mg/dL (70-99) Micro CT chest 07/08 IMPRESSION: 1. Mild cardiomegaly with moderate coronary artery calcification. 2. Moderate patchy groundglass opacities in both lungs similar to those seen on 06/01/2018. This is a nonspecific appearance which could be due to chronic or recurrent edema, inflammation or chronic lung disease. 3. Unchanged small bibasilar subpleural pulmonary nodules. Microbiology 07/07/18 Blood Culture - Preliminary, Resulted NO GROWTH AFTER 1 DAY Objective Assessment ? Left upper thigh cellulitis/yeast vs fluid retention - normal Procalcitonin NURY - stable Fluid overload Augmentin allergy - rash Morbid Obesity DM Plan Plan of Care Cont Po Zyvox/Flagyl/Fluconazole IV Cefepime Needs diuresis F/u labs and cults LISA GROVER MD Jul 10, 2018 07:50
[2018-07-10] MEDS: IPRATRPIUM/ALBUTEROL 0.5/2.5MG 3 ML NEBU. NEB SCH ×4 (08:00→20:01)
[2018-07-10] MEDS: CLOPIDOGREL BISULFATE 75 MG TABLET PO SCH (08:14)
[2018-07-10] MEDS: metFORMIN 500 MG TABLET PO SCH ×2 (08:14→17:36)
[2018-07-10] MEDS: CETIRIZINE HCL 10 MG TABLET. PO SCH (08:14)
[2018-07-10] MEDS: LACTOBACILLUS RHAMNOSUS GG 1 CAPSULE. PO SCH ×2 (08:14→20:48)
[2018-07-10] MEDS: buPROPion XL 150 MG TAB.ER.24H. PO SCH (08:14)
[2018-07-10] MEDS: ASPIRIN ENTERIC COATED 81 MG TABLET.DR. PO SCH (08:15)
[2018-07-10] MEDS: LINEZOLID 600 MG TABLET PO SCH ×2 (08:15→20:48)
[2018-07-10] MEDS: metroNIDAZOLE 500 MG TABLET PO SCH ×2 (08:15→20:47)
[2018-07-10] MEDS: CARVEDILOL 6.25 MG TABLET. PO SCH ×2 (08:16→17:36)
[2018-07-10] MEDS: LISINOPRIL 20 MG TABLET PO SCH (08:18)
[2018-07-10] MEDS: FLUCONAZOLE 100 MG TABLET. PO SCH (08:19)
[2018-07-10] MEDS: INSULIN GLARGINE 300 UNITS/3 ML INSULN.PEN. SQ SCH ×2 (08:21→20:50)
[2018-07-10] MEDS: INSULIN LISPRO 300 UNITS/3 ML INSULN.PEN. SQ SCH ×3 (08:24→17:00)
[2018-07-10] MEDS: metOLazone 2.5 MG TABLET PO SCH (08:29)
[2018-07-10] MEDS: DICLOFENAC SODIUM 1% TOPICAL GEL 100GM TUBE. TP SCH ×2 (08:41→20:49)
[2018-07-10] MEDS: NICOTINE 21MG PATCH. TD SCH (08:42)
[2018-07-10] MEDS: CEFEPIME HCL IV Push 2 GM VIAL. IVP SCH ×2 (08:42→20:49)
[2018-07-10] MEDS: FUROSEMIDE INJ 100 MG in IV NORMAL SALINE 100ML 100 ML IV PRN (08:56)
[2018-07-10] MEDS ORDERED: methylPREDNISolone ACETATE 40 MG/ML VIAL. IM ONE (09:15)
[2018-07-10] MEDS ORDERED: BUPIVACAINE MPF 0.25% 10 ML VIAL. IJ ONE (09:15)
--- NOTE | 2018-07-10 09:19 | PDOC ---
PROGRESS NOTES Subjective Subjective He c/o pain in his low back and right knee and wants injections. Objective Objective Vital Signs Date Time Temp Pulse Resp B/P (MAP) Pulse Ox O2 Delivery O2 Flow Rate FiO2 07/10/18 08:20 99 Nasal Cannula 3.0 07/10/18 08:18 88 130/79 07/10/18 07:25 97.5 20 97.5 Intake and Output 07/10/18 07:00 Intake Total 1587.66 ml Output Total 4975 ml Balance -3387.34 ml Intake Oral 820 ml IV Total 377.66 ml Other 390 ml Output Urine Total 4975 ml Physical Exam Physical Exam He is alert,sitting at edge of bed and he is getting up with physical therapy. Assessment Assessment Problems Medical Problems: (1) Bilateral lower leg cellulitis Status: Acute Plan Plan of Care To proceed with injection to right knee joint today and to consider injecting his back later in the week. Comment Review of Relevant I have reviewed the following items mukund (where applicable) has been applied. Labs Laboratory Tests Test 07/08/18 11:55 07/08/18 15:45 07/08/18 16:59 07/08/18 21:01 Glucose (Fingerstick) 121 mg/dL (70-99) 79 mg/dL (70-99) 139 mg/dL (70-99) O2 Saturation 88 % (92-99) Arterial Blood pH 7.30 (7.35-7.45) Arterial Blood pCO2 at Patient Temp 39 mmHg (35-46) Arterial Blood pO2 at Patient Temp 59 mmHg (75-108) Arterial Blood HCO3 19 mmol/L (21-28) Arterial Blood Base Excess -7 mmol/L (-3-3) FiO2 21 Test 07/09/18 03:45 07/09/18 08:01 07/09/18 10:52 07/09/18 16:42 White Blood Count 8.5 x10^3/uL (4.0-11.0) Red Blood Count 4.19 x10^6/uL (4.30-5.70) Hemoglobin 10.1 g/dL (13.0-17.5) Hematocrit 34.2 % (39.0-53.0) Mean Corpuscular Volume 82 fL (79-100) Mean Corpuscular Hemoglobin 24 pg (25-35) Mean Corpuscular Hemoglobin Concent 30 g/dL (31-37) Red Cell Distribution Width 21.2 % (11.5-14.5) Platelet Count 289 x10^3/uL (140-400) Neutrophils (%) (Auto) 65 % (31-73) Lymphocytes (%) (Auto) 15 % (24-48) Monocytes (%) (Auto) 14 % (0-9) Eosinophils (%) (Auto) 5 % (0-3) Basophils (%) (Auto) 1 % (0-3) Neutrophils # (Auto) 5.5 x10^3uL (1.8-7.7) Lymphocytes # (Auto) 1.2 x10^3/uL (1.0-4.8) Monocytes # (Auto) 1.2 x10^3/uL (0.0-1.1) Eosinophils # (Auto) 0.4 x10^3/uL (0.0-0.7) Basophils # (Auto) 0.1 x10^3/uL (0.0-0.2) Erythrocyte Sedimentation Rate 33 (0-15) Sodium Level 138 mmol/L (136-145) Potassium Level 5.2 mmol/L (3.5-5.1) Chloride Level 103 mmol/L (98-107) Carbon Dioxide Level 25 mmol/L (21-32) Anion Gap 10 (6-14) Blood Urea Nitrogen 30 mg/dL (8-26) Creatinine 2.0 mg/dL (0.7-1.3) Estimated GFR (Cockcroft-Gault) 43.7 BUN/Creatinine Ratio 15 (6-20) Glucose Level 161 mg/dL (70-99) Calcium Level 8.3 mg/dL (8.5-10.1) Magnesium Level 2.2 mg/dL (1.8-2.4) Total Bilirubin 0.8 mg/dL (0.2-1.0) Aspartate Amino Transf (AST/SGOT) 29 U/L (15-37) Alanine Aminotransferase (ALT/SGPT) 23 U/L (16-63) Alkaline Phosphatase 264 U/L (46-116) Total Protein 8.7 g/dL (6.4-8.2) Albumin 3.0 g/dL (3.4-5.0) Albumin/Globulin Ratio 0.5 (1.0-1.7) Procalcitonin < 0.10 ng/mL (0.00-0.10) Glucose (Fingerstick) 181 mg/dL (70-99) 110 mg/dL (70-99) 133 mg/dL (70-99) Test 07/09/18 20:55 07/10/18 04:30 07/10/18 07:20 Glucose (Fingerstick) 132 mg/dL (70-99) 158 mg/dL (70-99) White Blood Count 8.2 x10^3/uL (4.0-11.0) Red Blood Count 3.99 x10^6/uL (4.30-5.70) Hemoglobin 9.6 g/dL (13.0-17.5) Hematocrit 31.9 % (39.0-53.0) Mean Corpuscular Volume 80 fL (79-100) Mean Corpuscular Hemoglobin 24 pg (25-35) Mean Corpuscular Hemoglobin Concent 30 g/dL (31-37) Red Cell Distribution Width 21.2 % (11.5-14.5) Platelet Count 266 x10^3/uL (140-400) Neutrophils (%) (Auto) 67 % (31-73) Lymphocytes (%) (Auto) 12 % (24-48) Monocytes (%) (Auto) 15 % (0-9) Eosinophils (%) (Auto) 6 % (0-3) Basophils (%) (Auto) 1 % (0-3) Neutrophils # (Auto) 5.5 x10^3uL (1.8-7.7) Lymphocytes # (Auto) 1.0 x10^3/uL (1.0-4.8) Monocytes # (Auto) 1.2 x10^3/uL (0.0-1.1) Eosinophils # (Auto) 0.5 x10^3/uL (0.0-0.7) Basophils # (Auto) 0.1 x10^3/uL (0.0-0.2) Sodium Level 142 mmol/L (136-145) Potassium Level 5.2 mmol/L (3.5-5.1) Chloride Level 107 mmol/L (98-107) Carbon Dioxide Level 24 mmol/L (21-32) Anion Gap 11 (6-14) Blood Urea Nitrogen 36 mg/dL (8-26) Creatinine 1.9 mg/dL (0.7-1.3) Estimated GFR (Cockcroft-Gault) 46.4 Glucose Level 123 mg/dL (70-99) Calcium Level 8.4 mg/dL (8.5-10.1) Laboratory Tests Test 07/09/18 10:52 07/09/18 16:42 07/09/18 20:55 07/10/18 04:30 Glucose (Fingerstick) 110 mg/dL (70-99) 133 mg/dL (70-99) 132 mg/dL (70-99) White Blood Count 8.2 x10^3/uL (4.0-11.0) Red Blood Count 3.99 x10^6/uL (4.30-5.70) Hemoglobin 9.6 g/dL (13.0-17.5) Hematocrit 31.9 % (39.0-53.0) Mean Corpuscular Volume 80 fL (79-100) Mean Corpuscular Hemoglobin 24 pg (25-35) Mean Corpuscular Hemoglobin Concent 30 g/dL (31-37) Red Cell Distribution Width 21.2 % (11.5-14.5) Platelet Count 266 x10^3/uL (140-400) Neutrophils (%) (Auto) 67 % (31-73) Lymphocytes (%) (Auto) 12 % (24-48) Monocytes (%) (Auto) 15 % (0-9) Eosinophils (%) (Auto) 6 % (0-3) Basophils (%) (Auto) 1 % (0-3) Neutrophils # (Auto) 5.5 x10^3uL (1.8-7.7) Lymphocytes # (Auto) 1.0 x10^3/uL (1.0-4.8) Monocytes # (Auto) 1.2 x10^3/uL (0.0-1.1) Eosinophils # (Auto) 0.5 x10^3/uL (0.0-0.7) Basophils # (Auto) 0.1 x10^3/uL (0.0-0.2) Sodium Level 142 mmol/L (136-145) Potassium Level 5.2 mmol/L (3.5-5.1) Chloride Level 107 mmol/L (98-107) Carbon Dioxide Level 24 mmol/L (21-32) Anion Gap 11 (6-14) Blood Urea Nitrogen 36 mg/dL (8-26) Creatinine 1.9 mg/dL (0.7-1.3) Estimated GFR (Cockcroft-Gault) 46.4 Glucose Level 123 mg/dL (70-99) Calcium Level 8.4 mg/dL (8.5-10.1) Test 07/10/18 07:20 Glucose (Fingerstick) 158 mg/dL (70-99) Microbiology 07/07/18 Blood Culture - Preliminary, Resulted NO GROWTH AFTER 2 DAYS Medications Current Medications Ondansetron HCl (Zofran) 4 mg 1X ONCE IV Last administered on 07/07/18at 18:36; Start 07/07/18 at 18:15; Stop 07/07/18 at 18:16; Status DC Morphine Sulfate (Morphine Sulfate) 4 mg 1X ONCE IV Last administered on at 18:38; Start 07/07/18 at 18:15; Stop 07/07/18 at 18:16; Status DC Vancomycin HCl (Vanco Per Pharmacy) 1 each PRN DAILY PRN MC SEE COMMENTS Last administered on 07/07/18at 21:02; Start 07/07/18 at 18:45; Stop 07/08/18 at 11:22; Status DC Vancomycin HCl 2 gm/Sodium Chloride 500 ml @ 250 mls/hr 1X ONCE IV Last administered on 07/07/18at 18:54; Start 07/07/18 at 19:00; Stop 07/07/18 at 20:59; Status DC Morphine Sulfate (Morphine Sulfate) 4 mg PRN Q2HR PRN IV PAIN Last administered on 07/08/18at 19:08; Start 07/07/18 at 20:15; Stop 07/08/18 at 20:14; Status DC Acetaminophen (Tylenol) 650 mg PRN Q4HRS PRN PO FEVER; Start 07/07/18 at 20:15; Stop 07/08/18 at 20:14; Status DC Vancomycin HCl 1.75 gm/Sodium Chloride 500 ml @ 250 mls/hr Q8H IV Last administered on 07/08/18at 03:22; Start 07/08/18 at 03:00; Stop 07/08/18 at 11:22; Status DC Vancomycin HCl (Vancomycin Trough Level) 1 each 1X ONCE MC ; Start 07/08/18 at 18:30; Stop 07/08/18 at 18:30; Status DC Albuterol Sulfate (Ventolin Neb Soln) 2.5 mg PRN Q4HRS PRN NEB SHORTNESS OF BREATH Last administered on 07/08/18 08:01; Start 07/07/18 at 23:15 Bumetanide (Bumex) 1 mg DAILY PO Last administered on 07/08/18at 09:06; Start 07/08/18 at 09:00; Stop 07/08/18 at 13:02; Status DC Carvedilol (Coreg) 6.25 mg BIDWMEALS PO Last administered on 07/10/18 08:16; Start 07/08/18 at 08:00 Carvedilol (Coreg) 6.25 mg BIDWMEALS PO ; Start 07/08/18 at 08:00; Status UNV Cetirizine HCl (ZyrTEC) 10 mg DAILY PO Last administered on 07/10/18 08:14; Start 07/08/18 at 09:00 Clopidogrel Bisulfate (Plavix) 75 mg DAILY PO Last administered on 07/10/18 08: 14; Start 07/08/18 at 09:00 Lisinopril (Prinivil) 20 mg DAILY PO Last administered on 07/10/18 08:18; Start 07/08/18 at 09:00 Trimethoprim/ Sulfamethoxazole (Bactrim Ds) 1 tab BID PO ; Start 07/08/18 at 09: 00; Status UNV Pantoprazole Sodium (Protonix) 40 mg DAILYAC PO Last administered on 07/10/18 06:21; Start 07/08/18 at 07:30 Non-Formulary Medication (Doxycycline Monohydrate ) 1 cap BID PO ; Start at 09:00; Status UNV Insulin Glargine (Lantus) 80 units DAILYAC SQ Last administered on 07/08/18 09: 42; Start 07/08/18 at 07:30; Stop 07/08/18 at 10:21; Status DC Non-Formulary Medication (Linaclotide (Linzess)) 145 mcg DAILY07 PO Last administered on 07/09/18at 07:00; Start 07/08/18 at 07:00; Status UNV Metformin HCl (Glucophage) 1,000 mg BIDWMEALS PO Last administered on 07/10/18 08:14; Start 07/08/18 at 08:00 Montelukast Sodium (Singulair) 10 mg QHS PO Last administered on 07/09/18 21:04 ; Start 07/08/18 at 21:00 Atorvastatin Calcium (Lipitor) 5 mg QHS PO Last administered on 07/09/18 21:04 ; Start 07/08/18 at 21:00 Insulin Glargine (Lantus) 80 units 1400 SQ ; Start 07/08/18 at 14:00; Status Cancel Aspirin (Ecotrin) 81 mg DAILYWBKFT PO Last administered on 07/10/18 08:15; Start 07/08/18 at 11:00 Carvedilol (Coreg) 6.25 mg BIDWMEALS PO ; Start 07/08/18 at 11:00; Status Cancel Famotidine (Pepcid) 20 mg HS PO Last administered on 07/09/18 21:05; Start 07/08 at 21:00 Furosemide (Lasix) 80 mg DAILY PO Last administered on 07/08/18 12:47; Start at 11:00; Stop 07/08/18 at 13:02; Status DC Gabapentin (Neurontin) 300 mg HS PO Last administered on 07/09/18 21:05; Start 07/08/18 at 21:00 Insulin Glargine (Lantus) 100 units BID SQ ; Start 07/08/18 at 21:00; Status Cancel Insulin Human Lispro (HumaLOG) 70 units TIDWMEALS SQ Last administered on 08:24; Start 07/08/18 at 12:00 Albuterol/ Ipratropium (Duoneb) 3 ml RTQID NEB Last administered on 07/09/18 20 :21; Start 07/08/18 at 12:00 Bupropion HCl (Wellbutrin Xl) 300 mg DAILY PO Last administered on 07/10/18 08: 14; Start 07/08/18 at 11:00 Non-Formulary Medication (Dexlansoprazole (Dexilant)) 1 cap DAILY PO ; Start 07/09/18 at 09:00; Stop 07/09/18 at 09:00; Status DC Non-Formulary Medication (Glycopyrrolate/ Formoterol Fum (Bevespi Aerosphere Inhaler)) 10.7 gm DAILY IH ; Start 07/09/18 at 09:00; Status UNV Non-Formulary Medication (Linaclotide (Linzess)) 145 mcg DAILY PO ; Start at 09:00; Status UNV Non-Formulary Medication (Metformin Hcl (Glucophage)) 1,000 mg BIDWMEALS PO ; Start 07/08/18 at 17:00; Status UNV Non-Formulary Medication (Montelukast Sodium (Singulair Tablet)) 10 mg HS PO ; Start 07/08/18 at 21:00; Status UNV Non-Formulary Medication (Pravastatin Sodium ) 1 tab QHS PO ; Start 07/08/18 at 21:00; Status UNV Insulin Glargine (Lantus) 80 units BID SQ Last administered on 07/10/18 08:21; Start 07/08/18 at 21:00 Ondansetron HCl (Zofran) 4 mg PRN Q6HRS PRN IV NAUSEA/VOMITING Last administered on 07/08/18 19:26; Start 07/08/18 at 11:15 Nicotine (Nicoderm Cq 21mg) 1 patch DAILY TD Last administered on 07/10/18 08: 42; Start 07/08/18 at 11:30 Albuterol Sulfate (Ventolin Neb Soln) 2.5 mg RTQID NEB ; Start 07/08/18 at 12:00 ; Stop 07/08/18 at 12:01; Status DC Linezolid (Zyvox) 600 mg BID PO Last administered on 07/10/18 08:15; Start 07/08 at 12:00 Metronidazole (Flagyl) 500 mg Q12HR PO Last administered on 07/10/18 08:15; Start 07/08/18 at 12:00 Fluconazole (Diflucan) 100 mg DAILY PO Last administered on 07/10/18 08:19; Start 07/08/18 at 12:00 Cefepime HCl (Maxipime) 2 gm Q12HR IVP Last administered on 4/5/19at 08:42; Start 07/08/18 at 12:00 Diclofenac Sodium (Voltaren) 1 chung BID TP Last administered on 07/10/18 08:41; Start 07/08/18 at 21:00 Metolazone (Zaroxolyn) 5 mg DAILY PO Last administered on 07/10/18 08:29; Start 07/08/18 at 14:00 Furosemide (Lasix) 40 mg 1X ONCE IVP Last administered on 07/08/18 17:56; Start 07/08/18 at 13:00; Stop 07/08/18 at 13:19; Status DC Furosemide (Lasix) 40 mg Q6HRS IVP Last administered on 07/09/18 06:17; Start 07/08/18 at 18:00; Stop 07/09/18 at 11:26; Status DC Diphenhydramine HCl (Benadryl) 25 mg PRN Q6HRS PRN PO ITCHING Last administered on 07/09/18 22:33; Start 07/08/18 at 20:00 Lactobacillus Rhamnosus (Culturelle) 1 cap BID PO Last administered on 08:14; Start 07/08/18 at 21:00 Acetaminophen/ Hydrocodone Bitart (Lortab 5/325) 1 tab PRN Q4HRS PRN PO PAIN Last administered on 07/09/18 22:33; Start 07/09/18 at 10:30 Dobutamine HCl/ Dextrose 250 ml @ 32.318 mls/ hr CONT PRN IV PER PROTOCOL Last administered on 07/10/18 06:38; Start 07/09/18 at 11:30 Furosemide 100 mg/ Sodium Chloride 100 ml @ 5 mls/hr CONT PRN IV SEE I/O RECORD Last administered on 07/10/18 08:56; Start 07/09/18 at 11:15 Active Scripts Active Gabapentin (Gabapentin) 300 Mg Capsule 300 Mg PO HS 30 Days Cefdinir 300 Mg Capsule 300 Mg PO BID 7 Days Lantus Solostar (Insulin Glargine,Hum.rec.anlog) 100 Unit/1 Ml Insuln.pen 100 Unit SQ BID Humalog (Insulin Lispro) 100 Unit/1 Ml Vial 70 Unit SQ TIDAC 30 Days Wellbutrin Xl (Bupropion Hcl) 300 Mg Tab.er.24h 1 Tab PO DAILY Furosemide 80 Mg Tablet 80 Mg PO DAILY 30 Days Duoneb 0.5-3(2.5) Mg/3 Ml (Albuterol/Ipratropium) 3 Ml Ampul.neb 3 Ml NEB RTQID 30 Days Glucophage (Metformin Hcl) 1,000 Mg Tablet 1,000 Mg PO BIDWMEALS Lisinopril 20 Mg Tablet 20 Mg PO DAILY Aspirin Ec (Aspirin) 81 Mg Tablet. 81 Mg PO DAILYWBKFT Reported Bactrim Ds Tablet (Sulfamethoxazole/Trimethoprim) 1 Each Tablet 1 Tab PO BID Lisinopril 20 Mg Tablet 1 Tab PO DAILY Clopidogrel (Clopidogrel Bisulfate) 75 Mg Tablet 1 Tab PO DAILY Toujeo Solostar (Insulin Glargine,Hum.rec.anlog) 300 Unit/1 Ml Insuln.pen 300 Unit SQ BID Metformin Hcl 1,000 Mg Tablet 1,000 Mg PO BIDWMEALS Singulair Tablet (Montelukast Sodium) 10 Mg Tablet 1 Tab PO DAILY Coreg (Carvedilol) 6.25 Mg Tablet 6.25 Mg PO BIDWMEALS Pravastatin Sodium 20 Mg Tablet 1 Tab PO DAILY Cetirizine Hcl 10 Mg Tablet 1 Tab PO DAILY Bumetanide 1 Mg Tablet 1 Tab PO DAILY Linzess (Linaclotide) 145 Mcg Capsule 145 Mcg PO DAILY07 Dexilant (Dexlansoprazole) 60 Mg Cap. 1 Cap PO DAILY Doxycycline Monohydrate 100 Mg Capsule 1 Cap PO BID Bevespi Aerosphere Inhaler (Glycopyrrolate/Formoterol Fum) 10.7 Gm Hfa.aer.ad 10.7 Gm IH DAILY Carvedilol (Carvedilol) 6.25 Mg Tablet 1 Tab PO BID Pravastatin Sodium 20 Mg Tablet 1 Tab PO QHS Singulair Tablet (Montelukast Sodium) 10 Mg Tablet 10 Mg PO HS Famotidine 20 Mg Tablet 20 Mg PO HS Dexilant (Dexlansoprazole) 60 Mg Cap. 1 Cap PO DAILY Linzess (Linaclotide) 145 Mcg Capsule 145 Mcg PO DAILY Vitals/I & O Vital Sign - Last 24 Hours 07/09/18 07/09/18 07/09/18 07/09/18 10:44 11:00 11:29 12:30 Temp 97.7 97.6 97.7 97.6 Pulse 86 86 Resp 20 24 B/P (MAP) 128/83 (98) 123/56 (78) Pulse Ox 96 97 93 O2 Delivery Nasal Cannula Room Air Room Air Room Air O2 Flow Rate 2.0 07/09/18 07/09/18 07/09/18 07/09/18 13:00 15:15 16:11 17:02 Temp 98.1 98.1 Pulse 99 Resp 24 B/P (MAP) 143/65 (91) Pulse Ox 86 O2 Delivery Nasal Cannula Room Air Room Air Room Air O2 Flow Rate 4.0 07/09/18 07/09/18 07/09/18 07/09/18 17:56 19:48 19:50 20:22 Temp 97.5 97.5 Pulse 99 93 Resp B/P (MAP) 143/65 134/61 (85) Pulse Ox 96 100 O2 Delivery Nasal Cannula Nasal Cannula Nasal Cannula O2 Flow Rate 4.0 3.0 4.0 07/09/18 07/09/18 07/09/18 07/09/18 22:30 22:33 23:00 23:30 Temp 97.4 97.4 Pulse 82 95 92 Resp 18 B/P (MAP) 123/70 (87) 140/72 (94) 140/72 (94) Pulse Ox 96 94 O2 Delivery Nasal Cannula Nasal Cannula Nasal Cannula Nasal Cannula O2 Flow Rate 4.0 4.0 4.0 4.0 07/09/18 07/10/18 07/10/18 07/10/18 23:33 00:30 03:00 07:25 Temp 97.4 97.5 97.4 97.5 Pulse 94 94 91 Resp 16 20 20 B/P (MAP) 145/70 (95) 143/64 (90) 130/79 (96) Pulse Ox 94 94 94 O2 Delivery Nasal Cannula Nasal Cannula Nasal Cannula Nasal Cannula O2 Flow Rate 4.0 4.0 4.0 4.0 07/10/18 07/10/18 07/10/18 08:16 08:18 08:20 Pulse 88 88 B/P (MAP) 130/79 Pulse Ox 99 O2 Delivery Nasal Cannula O2 Flow Rate 3.0 Intake and Output 07/09/18 07/09/18 07/10/18 15:00 23:00 07:00 Intake Total 180 ml 630 ml 777.66 ml Output Total 1875 ml 1075 ml 2025 ml Balance -1695 ml -445 ml -1247.34 ml ALVARO RHOADES MD Jul 10, 2018 09:19
--- NOTE | 2018-07-10 09:27 | PDOC ---
CORINA ANN MEASUREMENT ADVISOR 07/10/18 0927: CARDIO Progress Notes Date and Time Date of Service 07/10/2018 Time of Evaluation 0900 Subjective Subjective: No Chest Pain, No Palpitations, Other (SOA with activity) Vitals Vitals Vital Signs Date Time Temp Pulse Resp B/P (MAP) Pulse Ox O2 Delivery O2 Flow Rate FiO2 07/10/18 08:20 99 Nasal Cannula 3.0 07/10/18 08:18 88 130/79 07/10/18 07:25 97.5 20 97.5 Weight Weight [ ] Input and Output Intake and Output Intake and Output 07/10/18 07:00 Intake Total 1587.66 ml Output Total 4975 ml Balance -3387.34 ml Intake Oral 820 ml IV Total 377.66 ml Other 390 ml Output Urine Total 4975 ml Laboratory Labs Laboratory Tests Test 07/09/18 10:52 07/09/18 16:42 07/09/18 20:55 07/10/18 04:30 Glucose (Fingerstick) 110 mg/dL (70-99) 133 mg/dL (70-99) 132 mg/dL (70-99) White Blood Count 8.2 x10^3/uL (4.0-11.0) Red Blood Count 3.99 x10^6/uL (4.30-5.70) Hemoglobin 9.6 g/dL (13.0-17.5) Hematocrit 31.9 % (39.0-53.0) Mean Corpuscular Volume 80 fL (79-100) Mean Corpuscular Hemoglobin 24 pg (25-35) Mean Corpuscular Hemoglobin Concent 30 g/dL (31-37) Red Cell Distribution Width 21.2 % (11.5-14.5) Platelet Count 266 x10^3/uL (140-400) Neutrophils (%) (Auto) 67 % (31-73) Lymphocytes (%) (Auto) 12 % (24-48) Monocytes (%) (Auto) 15 % (0-9) Eosinophils (%) (Auto) 6 % (0-3) Basophils (%) (Auto) 1 % (0-3) Neutrophils # (Auto) 5.5 x10^3uL (1.8-7.7) Lymphocytes # (Auto) 1.0 x10^3/uL (1.0-4.8) Monocytes # (Auto) 1.2 x10^3/uL (0.0-1.1) Eosinophils # (Auto) 0.5 x10^3/uL (0.0-0.7) Basophils # (Auto) 0.1 x10^3/uL (0.0-0.2) Sodium Level 142 mmol/L (136-145) Potassium Level 5.2 mmol/L (3.5-5.1) Chloride Level 107 mmol/L (98-107) Carbon Dioxide Level 24 mmol/L (21-32) Anion Gap 11 (6-14) Blood Urea Nitrogen 36 mg/dL (8-26) Creatinine 1.9 mg/dL (0.7-1.3) Estimated GFR (Cockcroft-Gault) 46.4 Glucose Level 123 mg/dL (70-99) Calcium Level 8.4 mg/dL (8.5-10.1) Test 07/10/18 07:20 Glucose (Fingerstick) 158 mg/dL (70-99) Microbiology Micro Microbiology 07/07/18 Blood Culture - Preliminary, Resulted NO GROWTH AFTER 2 DAYS Physical Exam HEENT: Neck Supple W Full Motion Chest: Symmetric LUNGS: Other (diminished bases) Heart: S1S2, RRR (SR no significiant ectopies), other (distante heart sounds) Abdomen: Other (anasarca, scrotal edema ) Extremities: Other (1-2+ bilateral edema from knees up) Neurology: alert, oriented, follow commands Assessment Assessment 1. Acute on chronic combined systolic/diastolic CHF 2. Anasarca; significant LE/abdominal swelling persists 3. ICM: LVEF 15-20% 4. CAD: stable clinically 5. Morbid obesity, KATIUSKA, hypoventilation syndrome 6. NURY 7. HTN: controlled 8. DM2/HLP 9. COPD with continued tobaccoism 10. Non-compliance; Sonic burger, chips, and 2L Sprite and Coke at bedside. 11. Anemia of chronic disease Recommendations Good UOP, Continue dobutamine and lasix drip. Reinforced 2000cc FR and 2 Gm Na diet Dietitian consult, smoking cessation Standing wt, discussed with staff. Encouraged FR and diet compliance. Difficult outpt optimization with treatment noncompliance. Future AICD pending adherence to treatment. TISH PONCE MD 07/10/18 1626: CARDIO Progress Notes Plan Plan Pt. seen and examined. Agree with above [employer] MODEL [employer]KER AND TESTER note. Continue dobutamine and lasix through the weekend. Needs several more liters off. Monitor lytes. Will follow along. CORINA ANN MEASUREMENT ADVISOR Jul 10, 2018 09:27 TISH PONCE MD Jul 10, 2018 16:26
--- NOTE | 2018-07-10 09:29 | PDOC ---
PULMONARY PROGRESS NOTES Subjective no new complains Vitals Vital Signs Date Time Temp Pulse Resp B/P (MAP) Pulse Ox O2 Delivery O2 Flow Rate FiO2 07/10/18 08:20 99 Nasal Cannula 3.0 07/10/18 08:18 88 130/79 07/10/18 07:25 97.5 20 97.5 General: Alert, No acute distress Lungs: Other (decrease bases) Cardiovascular: S1 Abdomen: Soft, Other (morbidly obese) Extremities: Other (2+edema) Labs Laboratory Tests Test 07/08/18 11:55 07/08/18 15:45 07/08/18 16:59 07/08/18 21:01 Glucose (Fingerstick) 121 mg/dL (70-99) 79 mg/dL (70-99) 139 mg/dL (70-99) O2 Saturation 88 % (92-99) Arterial Blood pH 7.30 (7.35-7.45) Arterial Blood pCO2 at Patient Temp 39 mmHg (35-46) Arterial Blood pO2 at Patient Temp 59 mmHg (75-108) Arterial Blood HCO3 19 mmol/L (21-28) Arterial Blood Base Excess -7 mmol/L (-3-3) FiO2 21 Test 07/09/18 03:45 07/09/18 08:01 07/09/18 10:52 07/09/18 16:42 White Blood Count 8.5 x10^3/uL (4.0-11.0) Red Blood Count 4.19 x10^6/uL (4.30-5.70) Hemoglobin 10.1 g/dL (13.0-17.5) Hematocrit 34.2 % (39.0-53.0) Mean Corpuscular Volume 82 fL (79-100) Mean Corpuscular Hemoglobin 24 pg (25-35) Mean Corpuscular Hemoglobin Concent 30 g/dL (31-37) Red Cell Distribution Width 21.2 % (11.5-14.5) Platelet Count 289 x10^3/uL (140-400) Neutrophils (%) (Auto) 65 % (31-73) Lymphocytes (%) (Auto) 15 % (24-48) Monocytes (%) (Auto) 14 % (0-9) Eosinophils (%) (Auto) 5 % (0-3) Basophils (%) (Auto) 1 % (0-3) Neutrophils # (Auto) 5.5 x10^3uL (1.8-7.7) Lymphocytes # (Auto) 1.2 x10^3/uL (1.0-4.8) Monocytes # (Auto) 1.2 x10^3/uL (0.0-1.1) Eosinophils # (Auto) 0.4 x10^3/uL (0.0-0.7) Basophils # (Auto) 0.1 x10^3/uL (0.0-0.2) Erythrocyte Sedimentation Rate 33 (0-15) Sodium Level 138 mmol/L (136-145) Potassium Level 5.2 mmol/L (3.5-5.1) Chloride Level 103 mmol/L (98-107) Carbon Dioxide Level 25 mmol/L (21-32) Anion Gap 10 (6-14) Blood Urea Nitrogen 30 mg/dL (8-26) Creatinine 2.0 mg/dL (0.7-1.3) Estimated GFR (Cockcroft-Gault) 43.7 BUN/Creatinine Ratio 15 (6-20) Glucose Level 161 mg/dL (70-99) Calcium Level 8.3 mg/dL (8.5-10.1) Magnesium Level 2.2 mg/dL (1.8-2.4) Total Bilirubin 0.8 mg/dL (0.2-1.0) Aspartate Amino Transf (AST/SGOT) 29 U/L (15-37) Alanine Aminotransferase (ALT/SGPT) 23 U/L (16-63) Alkaline Phosphatase 264 U/L (46-116) Total Protein 8.7 g/dL (6.4-8.2) Albumin 3.0 g/dL (3.4-5.0) Albumin/Globulin Ratio 0.5 (1.0-1.7) Procalcitonin < 0.10 ng/mL (0.00-0.10) Glucose (Fingerstick) 181 mg/dL (70-99) 110 mg/dL (70-99) 133 mg/dL (70-99) Test 07/09/18 20:55 07/10/18 04:30 07/10/18 07:20 Glucose (Fingerstick) 132 mg/dL (70-99) 158 mg/dL (70-99) White Blood Count 8.2 x10^3/uL (4.0-11.0) Red Blood Count 3.99 x10^6/uL (4.30-5.70) Hemoglobin 9.6 g/dL (13.0-17.5) Hematocrit 31.9 % (39.0-53.0) Mean Corpuscular Volume 80 fL (79-100) Mean Corpuscular Hemoglobin 24 pg (25-35) Mean Corpuscular Hemoglobin Concent 30 g/dL (31-37) Red Cell Distribution Width 21.2 % (11.5-14.5) Platelet Count 266 x10^3/uL (140-400) Neutrophils (%) (Auto) 67 % (31-73) Lymphocytes (%) (Auto) 12 % (24-48) Monocytes (%) (Auto) 15 % (0-9) Eosinophils (%) (Auto) 6 % (0-3) Basophils (%) (Auto) 1 % (0-3) Neutrophils # (Auto) 5.5 x10^3uL (1.8-7.7) Lymphocytes # (Auto) 1.0 x10^3/uL (1.0-4.8) Monocytes # (Auto) 1.2 x10^3/uL (0.0-1.1) Eosinophils # (Auto) 0.5 x10^3/uL (0.0-0.7) Basophils # (Auto) 0.1 x10^3/uL (0.0-0.2) Sodium Level 142 mmol/L (136-145) Potassium Level 5.2 mmol/L (3.5-5.1) Chloride Level 107 mmol/L (98-107) Carbon Dioxide Level 24 mmol/L (21-32) Anion Gap 11 (6-14) Blood Urea Nitrogen 36 mg/dL (8-26) Creatinine 1.9 mg/dL (0.7-1.3) Estimated GFR (Cockcroft-Gault) 46.4 Glucose Level 123 mg/dL (70-99) Calcium Level 8.4 mg/dL (8.5-10.1) Laboratory Tests Test 07/09/18 10:52 07/09/18 16:42 07/09/18 20:55 07/10/18 04:30 Glucose (Fingerstick) 110 mg/dL (70-99) 133 mg/dL (70-99) 132 mg/dL (70-99) White Blood Count 8.2 x10^3/uL (4.0-11.0) Red Blood Count 3.99 x10^6/uL (4.30-5.70) Hemoglobin 9.6 g/dL (13.0-17.5) Hematocrit 31.9 % (39.0-53.0) Mean Corpuscular Volume 80 fL (79-100) Mean Corpuscular Hemoglobin 24 pg (25-35) Mean Corpuscular Hemoglobin Concent 30 g/dL (31-37) Red Cell Distribution Width 21.2 % (11.5-14.5) Platelet Count 266 x10^3/uL (140-400) Neutrophils (%) (Auto) 67 % (31-73) Lymphocytes (%) (Auto) 12 % (24-48) Monocytes (%) (Auto) 15 % (0-9) Eosinophils (%) (Auto) 6 % (0-3) Basophils (%) (Auto) 1 % (0-3) Neutrophils # (Auto) 5.5 x10^3uL (1.8-7.7) Lymphocytes # (Auto) 1.0 x10^3/uL (1.0-4.8) Monocytes # (Auto) 1.2 x10^3/uL (0.0-1.1) Eosinophils # (Auto) 0.5 x10^3/uL (0.0-0.7) Basophils # (Auto) 0.1 x10^3/uL (0.0-0.2) Sodium Level 142 mmol/L (136-145) Potassium Level 5.2 mmol/L (3.5-5.1) Chloride Level 107 mmol/L (98-107) Carbon Dioxide Level 24 mmol/L (21-32) Anion Gap 11 (6-14) Blood Urea Nitrogen 36 mg/dL (8-26) Creatinine 1.9 mg/dL (0.7-1.3) Estimated GFR (Cockcroft-Gault) 46.4 Glucose Level 123 mg/dL (70-99) Calcium Level 8.4 mg/dL (8.5-10.1) Test 07/10/18 07:20 Glucose (Fingerstick) 158 mg/dL (70-99) Medications Active Scripts Medications Dose Route/Sig Max Daily Dose Days Date Category Bactrim Ds Tablet (Sulfamethoxazole/Trimethoprim) 1 Each Tablet 1 Tab PO BID 07/07/18 Reported Lisinopril 20 Mg Tablet 1 Tab PO DAILY 07/07/18 Reported Clopidogrel (Clopidogrel Bisulfate) 75 Mg Tablet 1 Tab PO DAILY 07/07/18 Reported Toujeo Solostar (Insulin Glargine,Hum.rec.anlog) 300 Unit/1 Ml Insuln.pen 300 Unit SQ BID 07/07/18 Reported Metformin Hcl 1,000 Mg Tablet 1,000 Mg PO BIDWMEALS 07/07/18 Reported Singulair Tablet (Montelukast Sodium) 10 Mg Tablet 1 Tab PO DAILY 07/07/18 Reported Coreg (Carvedilol) 6.25 Mg Tablet 6.25 Mg PO BIDWMEALS 07/07/18 Reported Pravastatin Sodium 20 Mg Tablet 1 Tab PO DAILY 07/07/18 Reported Cetirizine Hcl 10 Mg Tablet 1 Tab PO DAILY 07/07/18 Reported Bumetanide 1 Mg Tablet 1 Tab PO DAILY 07/07/18 Reported Linzess (Linaclotide) 145 Mcg Capsule 145 Mcg PO DAILY07 07/07/18 Reported Dexilant (Dexlansoprazole) 60 Mg Cap.mp 1 Cap PO DAILY 07/07/18 Reported Doxycycline Monohydrate 100 Mg Capsule 1 Cap PO BID 07/07/18 Reported Gabapentin (Gabapentin) 300 Mg Capsule 300 Mg PO HS 30 06/04/18 Rx Cefdinir 300 Mg Capsule 300 Mg PO BID 7 06/04/18 Rx Lantus Solostar (Insulin Glargine,Hum.rec.anlog) 100 Unit/1 Ml Insuln.pen 100 Unit SQ BID 06/04/18 Rx Humalog (Insulin Lispro) 100 Unit/1 Ml Vial 70 Unit SQ TIDAC 30 06/04/18 Rx Bevespi Aerosphere Inhaler (Glycopyrrolate/Formoterol Fum) 10.7 Gm Hfa.aer.ad 10.7 Gm IH DAILY 05/31/18 Reported Wellbutrin Xl (Bupropion Hcl) 300 Mg Tab.er.24h 1 Tab PO DAILY 01/19/18 Rx Furosemide 80 Mg Tablet 80 Mg PO DAILY 30 01/19/18 Rx Duoneb 0.5-3(2.5) Mg/3 Ml (Albuterol/Ipratropium) 3 Ml Ampul.neb 3 Ml NEB RTQID 30 01/19/18 Rx Carvedilol (Carvedilol) 6.25 Mg Tablet 1 Tab PO BID 01/15/18 Reported Pravastatin Sodium 20 Mg Tablet 1 Tab PO QHS 01/15/18 Reported Singulair Tablet (Montelukast Sodium) 10 Mg Tablet 10 Mg PO HS 01/15/18 Reported Famotidine 20 Mg Tablet 20 Mg PO HS 01/15/18 Reported Dexilant (Dexlansoprazole) 60 Mg Cap.mp 1 Cap PO DAILY 01/15/18 Reported Linzess (Linaclotide) 145 Mcg Capsule 145 Mcg PO DAILY 01/15/18 Reported Glucophage (Metformin Hcl) 1,000 Mg Tablet 1,000 Mg PO BIDWMEALS 04/04/17 Rx Lisinopril 20 Mg Tablet 20 Mg PO DAILY 04/04/17 Rx Aspirin Ec (Aspirin) 81 Mg Tablet. 81 Mg PO DAILYWBKFT 04/04/17 Rx Impression . 1. Acute hypoxic respiratory failure secondary to multifactorial etiologies includes combination of underlying chronic obstructive pulmonary disease with exacerbation, acute on chronic systolic heart failure with an ejection fraction now of of 15-20% and 75-pound weight gain in the last 6 months. 2. Abnormal previous CT chest and chest x-ray with bilateral interstitial infiltrates. This is a patient with severe cardiomyopathy and a two-vessel percutaneous coronary intervention done last year. I suspect ongoing systolic heart failure and less likely ILD. 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 Poor compliance 4. Lower extremity cellulitis and lymphedema. 5. Morbid obesity. 6. Severe cardiomyopathy with previous echo with an ejection fraction of 15-20% and status post percutaneous coronary intervention of right coronary artery. 7. H/O Severe KATIUSKA 8. CKD Plan . 1. Discussed with the patient the importance of losing weight. He has put on 75 pounds in the last 6 months. 2. Continue present oxygen. 3. d/w Renal. Started on lasix drip for 24 hr and monitor renal function/ Dobutamine drip started by cardiology 4. empiric CPAP qhs in the hospital 5. cardiology rec 6. Set up CPAP as an outpatient. 7. Smoking cessation counseling provided. 8. CT chest reviewed. Not sig changed from previous one/ suspect ongoing mild CHF LORI ROBERTS MD Jul 10, 2018 09:29
--- NOTE | 2018-07-10 09:45 | PDOC ---
Infectious Disease Note Subjective Subjective Some better today but still tight. Legs burn at times No F/C/S/N/V/D/SOA ROS ROS o/w neg Vital Sign Vital Signs Vital Signs Date Time Temp Pulse Resp B/P (MAP) Pulse Ox O2 Delivery O2 Flow Rate FiO2 07/10/18 08:20 99 Nasal Cannula 3.0 07/10/18 08:18 88 130/79 07/10/18 07:25 97.5 20 97.5 Physical Exam PHYSICAL EXAM CONSTITUTIONAL: He is cooperative. He is in no acute distress. He is laying in bed HEENT: Pupils equal and reactive. Oral cavity, pharynx is clear. NECK: Supple. LUNGS: Clear to auscultation. HEART: S1, S2. ABDOMEN: Morbidly obese, soft, no guarding, no rebound. He has got some pitting thickness of his lower extremity abdominal area.mild improvement EXTREMITIES: No clubbing, cyanosis. He has chronic swelling of the bilateral lower extremities, left greater than right and also had some fullness and thickening of groin tissue of his left thigh. SKIN: Otherwise warm to touch without signs of rash. NEUROLOGIC: Nonfocal and appropriate. PSYCHIATRIC: Affect is pleasant. Labs Lab Laboratory Tests Test 07/09/18 10:52 07/09/18 16:42 07/09/18 20:55 07/10/18 04:30 Glucose (Fingerstick) 110 mg/dL (70-99) 133 mg/dL (70-99) 132 mg/dL (70-99) White Blood Count 8.2 x10^3/uL (4.0-11.0) Red Blood Count 3.99 x10^6/uL (4.30-5.70) Hemoglobin 9.6 g/dL (13.0-17.5) Hematocrit 31.9 % (39.0-53.0) Mean Corpuscular Volume 80 fL (79-100) Mean Corpuscular Hemoglobin 24 pg (25-35) Mean Corpuscular Hemoglobin Concent 30 g/dL (31-37) Red Cell Distribution Width 21.2 % (11.5-14.5) Platelet Count 266 x10^3/uL (140-400) Neutrophils (%) (Auto) 67 % (31-73) Lymphocytes (%) (Auto) 12 % (24-48) Monocytes (%) (Auto) 15 % (0-9) Eosinophils (%) (Auto) 6 % (0-3) Basophils (%) (Auto) 1 % (0-3) Neutrophils # (Auto) 5.5 x10^3uL (1.8-7.7) Lymphocytes # (Auto) 1.0 x10^3/uL (1.0-4.8) Monocytes # (Auto) 1.2 x10^3/uL (0.0-1.1) Eosinophils # (Auto) 0.5 x10^3/uL (0.0-0.7) Basophils # (Auto) 0.1 x10^3/uL (0.0-0.2) Sodium Level 142 mmol/L (136-145) Potassium Level 5.2 mmol/L (3.5-5.1) Chloride Level 107 mmol/L (98-107) Carbon Dioxide Level 24 mmol/L (21-32) Anion Gap 11 (6-14) Blood Urea Nitrogen 36 mg/dL (8-26) Creatinine 1.9 mg/dL (0.7-1.3) Estimated GFR (Cockcroft-Gault) 46.4 Glucose Level 123 mg/dL (70-99) Calcium Level 8.4 mg/dL (8.5-10.1) Test 07/10/18 07:20 Glucose (Fingerstick) 158 mg/dL (70-99) Micro CT chest 07/08 IMPRESSION: 1. Mild cardiomegaly with moderate coronary artery calcification. 2. Moderate patchy groundglass opacities in both lungs similar to those seen on 06/01/2018. This is a nonspecific appearance which could be due to chronic or recurrent edema, inflammation or chronic lung disease. 3. Unchanged small bibasilar subpleural pulmonary nodules. Microbiology 07/07/18 Blood Culture - Preliminary, Resulted NO GROWTH AFTER 1 DAY Objective Assessment ? Left upper thigh cellulitis/yeast vs fluid retention - normal Procalcitonin NURY - stable Fluid overload Augmentin allergy - rash Morbid Obesity DM Plan Plan of Care Cont Po Zyvox/Flagyl/Fluconazole IV Cefepime Obtain LE arterial dopplers Needs diuresis F/u labs and cults LISA GROVER MD Jul 10, 2018 09:45
[2018-07-10] MEDS ORDERED: BUDESONIDE 0.5 MG/2 ML NEBU. NEB ONE (10:15)
--- NOTE | 2018-07-10 10:15 | PDOC ---
PROGRESS NOTES Subjective Subjective moved to cardiac floor Objective Objective Vital Signs Date Time Temp Pulse Resp B/P (MAP) Pulse Ox O2 Delivery O2 Flow Rate FiO2 07/10/18 08:20 99 Nasal Cannula 3.0 07/10/18 08:18 88 130/79 07/10/18 07:25 97.5 20 97.5 Intake and Output 07/10/18 07:00 Intake Total 1587.66 ml Output Total 4975 ml Balance -3387.34 ml Intake Oral 820 ml IV Total 377.66 ml Other 390 ml Output Urine Total 4975 ml Physical Exam Abdomen: Normal bowel sounds, Soft, No tenderness Heart: Regular rate, Normal S1, Normal S2 Extremities: No clubbing, Other (2-4+ EDEMA) General: Alert, Oriented X3, Cooperative, No acute distress HEENT: Atraumatic, PERRLA, EOMI, Mucous membr. moist/pink Lungs: Clear to auscultation MUSCULOSKELETAL: No joint tenderness, No deformity Neuro: Normal speech Psych/Mental Status: Mental status NL, Mood NL Skin: No breakdown, Other (STASIS DISCOLOARATION BILATERALLY AND ERYTHEMA BILATERALLY IN LE) COMMENT abd wall edema Diagnosis Problem List Problems Medical Problems: (1) Bilateral lower leg cellulitis Status: Acute Assessment Assessment Problems Medical Problems: (1) Bilateral lower leg cellulitis Status: Acute IMPRESSION: 1. Possible cellulitis of the lower extremities. 2. Chronic edema of both lower extremities and lymphedema. 3. 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 4. Respiratory failure, hypoxic. 5. Morbid obesity. 6. Obstructive sleep apnea, CPAP, noncompliant. 7. Diabetes mellitus type 2, insulin-dependent, noncompliant. 8. Chronic obstructive pulmonary disease. 9. Hyperkalemia. 10. Slow transit constipation. 11. Osteoarthritis of both knees. 12. Physical deconditioning. 13. History of right lower lung nodule. 14. Gastroesophageal reflux disease with esophagitis. 15. Mixed hyperlipidemia. 16. Noncompliance. 17. Anemia of chronic disease. 18. Coronary artery disease with 2-vessel coronary artery disease status post drug-eluting stent of the right coronary artery on 04/03/2017. PLAN: iv lasix drip+ dobutamine drip cr 1.9, stable echo 15%. renal consult. monitor kidney function morbid obesity. rehab consult appreciated spoke with pulmonary+ cardiology iv antibiotics for leg cellulitis Plan Plan of Care Problems Medical Problems: (1) Bilateral lower leg cellulitis Status: Acute Comment Review of Relevant I have reviewed the following items mukund (where applicable) has been applied. Labs Laboratory Tests Test 07/09/18 10:52 07/09/18 16:42 07/09/18 20:55 07/10/18 04:30 Glucose (Fingerstick) 110 mg/dL (70-99) 133 mg/dL (70-99) 132 mg/dL (70-99) White Blood Count 8.2 x10^3/uL (4.0-11.0) Red Blood Count 3.99 x10^6/uL (4.30-5.70) Hemoglobin 9.6 g/dL (13.0-17.5) Hematocrit 31.9 % (39.0-53.0) Mean Corpuscular Volume 80 fL (79-100) Mean Corpuscular Hemoglobin 24 pg (25-35) Mean Corpuscular Hemoglobin Concent 30 g/dL (31-37) Red Cell Distribution Width 21.2 % (11.5-14.5) Platelet Count 266 x10^3/uL (140-400) Neutrophils (%) (Auto) 67 % (31-73) Lymphocytes (%) (Auto) 12 % (24-48) Monocytes (%) (Auto) 15 % (0-9) Eosinophils (%) (Auto) 6 % (0-3) Basophils (%) (Auto) 1 % (0-3) Neutrophils # (Auto) 5.5 x10^3uL (1.8-7.7) Lymphocytes # (Auto) 1.0 x10^3/uL (1.0-4.8) Monocytes # (Auto) 1.2 x10^3/uL (0.0-1.1) Eosinophils # (Auto) 0.5 x10^3/uL (0.0-0.7) Basophils # (Auto) 0.1 x10^3/uL (0.0-0.2) Sodium Level 142 mmol/L (136-145) Potassium Level 5.2 mmol/L (3.5-5.1) Chloride Level 107 mmol/L (98-107) Carbon Dioxide Level 24 mmol/L (21-32) Anion Gap 11 (6-14) Blood Urea Nitrogen 36 mg/dL (8-26) Creatinine 1.9 mg/dL (0.7-1.3) Estimated GFR (Cockcroft-Gault) 46.4 Glucose Level 123 mg/dL (70-99) Calcium Level 8.4 mg/dL (8.5-10.1) Test 07/10/18 07:20 Glucose (Fingerstick) 158 mg/dL (70-99) Microbiology 07/07/18 Blood Culture - Preliminary, Resulted NO GROWTH AFTER 2 DAYS Medications Current Medications Acetaminophen/ Hydrocodone Bitart (Lortab 5/325) 1 tab PRN Q4HRS PRN PO PAIN Last administered on 07/09/18at 22:33; Start 07/09/18 at 10:30 Bupivacaine HCl (Sensorcaine-Mpf 0.25%) 10 ml 1X ONCE IJ ; Start 07/10/18 at 09: 15; Stop 07/10/18 at 09:21; Status DC Dobutamine HCl/ Dextrose 250 ml @ 32.318 mls/ hr CONT PRN IV PER PROTOCOL Last administered on 07/10/18at 06:38; Start 07/09/18 at 11:30 Furosemide 100 mg/ Sodium Chloride 100 ml @ 5 mls/hr CONT PRN IV SEE I/O RECORD Last administered on 07/10/18at 08:56; Start 07/09/18 at 11:15 Methylprednisolone Acetate (DEPO-Medrol 40MG VIAL) 40 mg 1X ONCE IM ; Start 07/10/18 at 09:15; Stop 07/10/18 at 09:21; Status DC Vitals/I & O Vital Sign - Last 24 Hours 07/09/18 07/09/18 07/09/18 07/09/18 10:44 11:00 11:29 12:30 Temp 97.7 97.6 97.7 97.6 Pulse 86 86 Resp 20 24 B/P (MAP) 128/83 (98) 123/56 (78) Pulse Ox 96 97 93 O2 Delivery Nasal Cannula Room Air Room Air Room Air O2 Flow Rate 2.0 07/09/18 07/09/18 07/09/18 07/09/18 13:00 15:15 16:11 17:02 Temp 98.1 98.1 Pulse 99 Resp 24 B/P (MAP) 143/65 (91) Pulse Ox 86 O2 Delivery Nasal Cannula Room Air Room Air Room Air O2 Flow Rate 4.0 07/09/18 07/09/18 07/09/18 07/09/18 17:56 19:48 19:50 20:22 Temp 97.5 97.5 Pulse 99 93 Resp 22 B/P (MAP) 143/65 134/61 (85) Pulse Ox 96 100 O2 Delivery Nasal Cannula Nasal Cannula Nasal Cannula O2 Flow Rate 4.0 3.0 4.0 07/09/18 07/09/18 07/09/18 07/09/18 22:30 22:33 23:00 23:30 Temp 97.4 97.4 Pulse 82 95 92 Resp 18 B/P (MAP) 123/70 (87) 140/72 (94) 140/72 (94) Pulse Ox 96 94 O2 Delivery Nasal Cannula Nasal Cannula Nasal Cannula Nasal Cannula O2 Flow Rate 4.0 4.0 4.0 4.0 07/09/18 07/10/18 07/10/18 07/10/18 23:33 00:30 03:00 07:25 Temp 97.4 97.5 97.4 97.5 Pulse 94 94 91 Resp 16 20 20 B/P (MAP) 145/70 (95) 143/64 (90) 130/79 (96) Pulse Ox 94 94 94 O2 Delivery Nasal Cannula Nasal Cannula Nasal Cannula Nasal Cannula O2 Flow Rate 4.0 4.0 4.0 4.0 07/10/18 07/10/18 07/10/18 08:16 08:18 08:20 Pulse 88 88 B/P (MAP) 130/79 Pulse Ox 99 O2 Delivery Nasal Cannula O2 Flow Rate 3.0 Intake and Output 07/09/18 07/09/18 07/10/18 15:00 23:00 07:00 Intake Total 180 ml 630 ml 777.66 ml Output Total 1875 ml 1075 ml 2025 ml Balance -1695 ml -445 ml -1247.34 ml ARYA SAENZ MD Jul 10, 2018 10:15
--- NOTE | 2018-07-10 11:13 | PDOC ---
SUBJECTIVE ROS No new complaints, he feels abdomen softer OBJECTIVE Vital Signs Vital Signs Date Time Temp Pulse Resp B/P (MAP) Pulse Ox O2 Delivery O2 Flow Rate FiO2 07/10/18 10:41 97.8 96 20 129/66 (87) 95 Nasal Cannula 4.0 97.8 I & 0 Intake and Output 07/10/18 07:00 Intake Total 1587.66 ml Output Total 4975 ml Balance -3387.34 ml Intake Oral 820 ml IV Total 377.66 ml Other 390 ml Output Urine Total 4975 ml PHYSICAL EXAM Physical Exam Gen: NAD, sitting up eating Lunch HEENT: OM moist , On RA NECK: Supple. LUNGS: Clear to auscultation. HEART: S1, S2. ABDOMEN: Morbidly obese, pitting edema lower abdominal area., improved some EXTREMITIES: chronic swelling of the bilateral lower extremities, left greater than right mostly in thighs SKIN: No rash NEUROLOGIC: Nonfocal No garcia DIAGNOSIS/ASSESSMENT Assessment & Plan Anasarca- Cardiorenal Switched to Lasix drip yesterday Also on Dobutamine and Metolazone ,Good UOP Strict I/O and accurate daily weight NURY -Cardiorenal, stable renal function On Lisinopril Hyperkalemia- Mild LE cellulitis- ID Has been on multiple ABx as per Pt Most Recent Bactrim prior to admission Morbid Obesity CM with EF of 15-20% Cardiology following Pulm Infiltrates- Pulm following ESR pending CT scan stable findings Hyperkalemia Severe KATIUSKA- Non compliant Chronic Anemia Discussed with Card and Pulm CAD COMMENT/RELEVANT DATA Meds Current Medications Medications (Trade) Dose Ordered Sig/Linden Start Time Stop Time Status Last Admin Dose Admin Acetaminophen (Tylenol) 650 mg PRN Q4HRS PRN 07/07/18 20:15 07/08/18 20:14 DC Acetaminophen/ Hydrocodone Bitart (Lortab 5/325) 1 tab PRN Q4HRS PRN 07/09/18 10:30 07/09/18 22:33 1 TAB Albuterol Sulfate (Ventolin Neb Soln) 2.5 mg RTQID 07/08/18 12:00 07/08/18 12:01 DC Albuterol/ Ipratropium (Duoneb) 3 ml RTQID 07/08/18 12:00 07/09/18 20:21 3 ML Aspirin (Ecotrin) 81 mg DAILYWBKFT 07/08/18 11:00 07/10/18 08:15 81 MG Atorvastatin Calcium (Lipitor) 5 mg QHS 07/08/18 21:00 07/09/18 21:04 5 MG Budesonide (Pulmicort) 0.5 mg 1X ONCE 07/10/18 10:15 07/10/18 10:31 DC Bumetanide (Bumex) 1 mg DAILY 07/08/18 09:00 07/08/18 13:02 DC 07/08/18 09:06 1 MG Bupivacaine HCl (Sensorcaine-Mpf 0.25%) 10 ml 1X ONCE 07/10/18 09:15 07/10/18 09:21 DC Bupropion HCl (Wellbutrin Xl) 300 mg DAILY 07/08/18 11:00 07/10/18 08:14 300 MG Carvedilol (Coreg) 6.25 mg BIDWMEALS 07/08/18 11:00 Cancel Cefepime HCl (Maxipime) 2 gm Q12HR 07/08/18 12:00 07/10/18 08:42 2 GM Cetirizine HCl (ZyrTEC) 10 mg DAILY 07/08/18 09:00 07/10/18 08:14 10 MG Clopidogrel Bisulfate (Plavix) 75 mg DAILY 07/08/18 09:00 07/10/18 08:14 75 MG Diclofenac Sodium (Voltaren) 1 chung BID 07/08/18 21:00 07/10/18 08:41 1 CHUNG Diphenhydramine HCl (Benadryl) 25 mg PRN Q6HRS PRN 07/08/18 20:00 07/09/18 22:33 25 MG Dobutamine HCl/ Dextrose 250 ml @ 32.318 mls/ hr CONT PRN 07/09/18 11:30 07/10/18 06:38 32.318 MLS/HR Enoxaparin Sodium (Lovenox 80mg Syringe) 80 mg Q12HR 07/10/18 10:15 UNV Famotidine (Pepcid) 20 mg HS 07/08/18 21:00 07/09/18 21:05 20 MG Fluconazole (Diflucan) 100 mg DAILY 07/08/18 12:00 07/10/18 08:19 100 MG Furosemide (Lasix) 40 mg Q6HRS 07/08/18 18:00 07/09/18 11:26 DC 07/09/18 06:17 40 MG Furosemide 100 mg/ Sodium Chloride 100 ml @ 5 mls/hr CONT PRN 07/09/18 11:15 07/10/18 08:56 5 MLS/HR Gabapentin (Neurontin) 300 mg HS 07/08/18 21:00 07/09/18 21:05 300 MG Insulin Glargine (Lantus) 80 units BID 07/08/18 21:00 07/10/18 08:21 80 UNITS Insulin Human Lispro (HumaLOG) 70 units TIDWMEALS 07/08/18 12:00 07/10/18 08:24 60 UNITS Lactobacillus Rhamnosus (Culturelle) 1 cap BID 07/08/18 21:00 07/10/18 08:14 1 CAP Linezolid (Zyvox) 600 mg BID 07/08/18 12:00 07/10/18 08:15 600 MG Lisinopril (Prinivil) 20 mg DAILY 07/08/18 09:00 07/10/18 08:18 20 MG Metformin HCl (Glucophage) 1,000 mg BIDWMEALS 07/08/18 08:00 07/10/18 08:14 1,000 MG Methylprednisolone Acetate (DEPO-Medrol 40MG VIAL) 40 mg 1X ONCE 07/10/18 09:15 07/10/18 09:21 DC Metolazone (Zaroxolyn) 5 mg DAILY 07/08/18 14:00 07/10/18 08:29 5 MG Metronidazole (Flagyl) 500 mg Q12HR 07/08/18 12:00 07/10/18 08:15 500 MG Montelukast Sodium (Singulair) 10 mg QHS 07/08/18 21:00 07/09/18 21:04 10 MG Morphine Sulfate (Morphine Sulfate) 4 mg PRN Q2HR PRN 07/07/18 20:15 07/08/18 20:14 DC 07/08/18 19:08 4 MG Nicotine (Nicoderm Cq 21mg) 1 patch DAILY 07/08/18 11:30 07/10/18 08:42 1 PATCH Non-Formulary Medication (Dexlansoprazole (Dexilant)) 1 cap DAILY 07/09/18 09:00 07/09/18 09:00 DC Non-Formulary Medication (Doxycycline Monohydrate ) 1 cap BID 07/08/18 09:00 UNV Non-Formulary Medication (Glycopyrrolate/ Formoterol Fum (Bevespi Aerosphere Inhaler)) 10.7 gm DAILY 07/09/18 09:00 07/10/18 10:43 DC Non-Formulary Medication (Linaclotide (Linzess)) 145 mcg DAILY 07/09/18 09:00 UNV Non-Formulary Medication (Metformin Hcl (Glucophage)) 1,000 mg BIDWMEALS 07/08/18 17:00 UNV Non-Formulary Medication (Montelukast Sodium (Singulair Tablet)) 10 mg HS 07/08/18 21:00 UNV Non-Formulary Medication (Pravastatin Sodium ) 1 tab QHS 07/08/18 21:00 UNV Ondansetron HCl (Zofran) 4 mg PRN Q6HRS PRN 07/08/18 11:15 07/08/18 19:26 4 MG Pantoprazole Sodium (Protonix) 40 mg DAILYAC 07/08/18 07:30 07/10/18 06:21 40 MG Trimethoprim/ Sulfamethoxazole (Bactrim Ds) 1 tab BID 07/08/18 09:00 UNV Vancomycin HCl (Vanco Per Pharmacy) 1 each PRN DAILY PRN 07/07/18 18:45 07/08/18 11:22 DC 07/07/18 21:02 1 EACH Vancomycin HCl (Vancomycin Trough Level) 1 each 1X ONCE 07/08/18 18:30 07/08/18 18:30 DC Vancomycin HCl 1.75 gm/Sodium Chloride 500 ml @ 250 mls/hr Q8H 07/08/18 03:00 07/08/18 11:22 DC 07/08/18 03:22 250 MLS/HR Vancomycin HCl 2 gm/Sodium Chloride 500 ml @ 250 mls/hr 1X ONCE 07/07/18 19:00 07/07/18 20:59 DC 07/07/18 18:54 250 MLS/HR Lab Laboratory Tests Test 07/09/18 16:42 07/09/18 20:55 07/10/18 04:30 07/10/18 07:20 Glucose (Fingerstick) 133 mg/dL (70-99) 132 mg/dL (70-99) 158 mg/dL (70-99) White Blood Count 8.2 x10^3/uL (4.0-11.0) Red Blood Count 3.99 x10^6/uL (4.30-5.70) Hemoglobin 9.6 g/dL (13.0-17.5) Hematocrit 31.9 % (39.0-53.0) Mean Corpuscular Volume 80 fL (79-100) Mean Corpuscular Hemoglobin 24 pg (25-35) Mean Corpuscular Hemoglobin Concent 30 g/dL (31-37) Red Cell Distribution Width 21.2 % (11.5-14.5) Platelet Count 266 x10^3/uL (140-400) Neutrophils (%) (Auto) 67 % (31-73) Lymphocytes (%) (Auto) 12 % (24-48) Monocytes (%) (Auto) 15 % (0-9) Eosinophils (%) (Auto) 6 % (0-3) Basophils (%) (Auto) 1 % (0-3) Neutrophils # (Auto) 5.5 x10^3uL (1.8-7.7) Lymphocytes # (Auto) 1.0 x10^3/uL (1.0-4.8) Monocytes # (Auto) 1.2 x10^3/uL (0.0-1.1) Eosinophils # (Auto) 0.5 x10^3/uL (0.0-0.7) Basophils # (Auto) 0.1 x10^3/uL (0.0-0.2) Sodium Level 142 mmol/L (136-145) Potassium Level 5.2 mmol/L (3.5-5.1) Chloride Level 107 mmol/L (98-107) Carbon Dioxide Level 24 mmol/L (21-32) Anion Gap 11 (6-14) Blood Urea Nitrogen 36 mg/dL (8-26) Creatinine 1.9 mg/dL (0.7-1.3) Estimated GFR (Cockcroft-Gault) 46.4 Glucose Level 123 mg/dL (70-99) Calcium Level 8.4 mg/dL (8.5-10.1) Results All relevant outside records, renal labs, imaging studies, telemetry/EKG's were reviewed. GILMA GARCES MD Jul 10, 2018 11:13
[2018-07-10] MEDS: HYDROcodone/APAP 5/325MG 1 TAB TABLET PO PRN ×3 (11:19→20:51)
--- NOTE | 2018-07-10 11:52 | RAD ---
Bilateral lower extremity arterial ultrasound, 07/10/2018: HISTORY: History: Peripheral arterial disease, morbid obesity The study was compromised by the patient's size. The right common femoral Doppler waveform is monophasic as are the right superficial femoral and popliteal Doppler waveforms. No significant focal velocity acceleration was seen in those regions to suggest high-grade stenosis. Patent posterior tibial and peroneal arteries are evident in the right lower leg. The right anterior tibial artery could not be visualized. The right dorsalis pedis artery is visualized and it demonstrates a good amplitude monophasic Doppler waveform. On the left, the common femoral, superficial femoral and popliteal Doppler waveforms are monophasic. No high-grade focal stenosis was identified. Patent posterior tibial and peroneal arteries are present in the left lower leg. The anterior tibial artery could not be visualized. The dorsalis pedis artery is widely patent with a good amplitude monophasic Doppler waveform. IMPRESSION: 1. Limited exam as described above. 2. Bilateral monophasic Doppler waveforms raising the possibility of aortoiliac inflow disease. 3. No high-grade femoral-popliteal stenosis was identified. 4. Nonvisualization of the anterior tibial arteries in both lower legs is probably on a technical basis, since good blood flow is evident in the dorsalis pedis arteries bilaterally. Electronically signed by: Yassine Partida MD (07/10/2018 11:49 AM) [facility]
[2018-07-10] MEDS: LUBIPROSTONE 8 MCG CAPSULE PO SCH ×2 (14:28→17:36)
[2018-07-10] MEDS: BUDESONIDE 0.5 MG/2 ML NEBU. NEB SCH (20:01)
[2018-07-10] MEDS: MONTELUKAST SODIUM 10 MG TABLET. PO SCH (20:48)
[2018-07-10] MEDS: GABAPENTIN 300 MG CAPSULE. PO SCH (20:48)
[2018-07-10] MEDS: FAMOTIDINE 20 MG TABLET. PO SCH (20:48)
[2018-07-10] MEDS: ATORVASTATIN CALCIUM 10 MG TABLET. PO SCH (20:48)
[2018-07-10] MEDS: diphenhydrAMINE HCL 25 MG CAPSULE PO PRN (20:51)
[2018-07-11] MEDS: HYDROcodone/APAP 5/325MG 1 TAB TABLET PO PRN ×2 (01:32→06:25)
[2018-07-11] MEDS: FUROSEMIDE INJ 100 MG in IV NORMAL SALINE 100ML 100 ML IV PRN (02:33)
[2018-07-11 03:00] VITALS: BP 123/76
[2018-07-11] MEDS: diphenhydrAMINE HCL 25 MG CAPSULE PO PRN ×3 (03:05→18:19)
[2018-07-11 04:00] LABS: BASO % 1 % (0-3); EOS # 0.6 x10^3/uL (0.0-0.7); EOS % 8 % (0-3); HEMOGLOBIN 9.7 g/dL (13.0-17.5); LYMPH # 1.1 x10^3/uL (1.0-4.8); LYMPH % 15 % (24-48); MEAN CORPUSCULAR HEMOGLOBIN 24 pg (25-35); MEAN CORPUSCULAR HGB CONC 30 g/dL (31-37); MEAN CORPUSCULAR VOLUME 80 fL (79-100); MONO # 1.1 x10^3/uL (0.0-1.1); MONO % 16 % (0-9); NEUT # 4.2 x10^3uL (1.8-7.7); NEUT % 61 % (31-73); PLATELET COUNT 265 x10^3/uL (140-400); RED BLOOD COUNT 4.01 x10^6/uL (4.30-5.70); RED CELL DISTRIBUTION WIDTH 20.9 % (11.5-14.5)
[2018-07-11 04:17] LABS: CALCIUM 8.8 mg/dL (8.5-10.1); CREATININE 1.6 mg/dL (0.7-1.3); GFR 56.6; MAGNESIUM 2.1 mg/dL (1.8-2.4); POTASSIUM 5.1 mmol/L (3.5-5.1)
[2018-07-11] MEDS: PANTOPRAZOLE 40 MG TABLET.DR. PO SCH (06:25)
--- NOTE | 2018-07-11 07:20 | PDOC ---
PULMONARY PROGRESS NOTES Subjective used cpap for short period of time last night, sob better, no cough, no pain Vitals Vital Signs Date Time Temp Pulse Resp B/P (MAP) Pulse Ox O2 Delivery O2 Flow Rate FiO2 07/11/18 06:25 16 93 Room Air 07/11/18 03:00 97.4 96 123/76 (92) 97.4 07/11/18 02:32 3.0 General: Alert, No acute distress HEENT: Other (nc at perrl ) Lungs: Other (decrease bases) Cardiovascular: S1, S2 Abdomen: Soft, Non-tender, Other (morbidly obese) Extremities: Other (2+edema) Skin: Warm Labs Laboratory Tests Test 07/09/18 08:01 07/09/18 10:52 07/09/18 16:42 07/09/18 20:55 Glucose (Fingerstick) 181 mg/dL (70-99) 110 mg/dL (70-99) 133 mg/dL (70-99) 132 mg/dL (70-99) Test 07/10/18 04:30 07/10/18 07:20 07/10/18 11:33 07/10/18 14:28 White Blood Count 8.2 x10^3/uL (4.0-11.0) Red Blood Count 3.99 x10^6/uL (4.30-5.70) Hemoglobin 9.6 g/dL (13.0-17.5) Hematocrit 31.9 % (39.0-53.0) Mean Corpuscular Volume 80 fL (79-100) Mean Corpuscular Hemoglobin 24 pg (25-35) Mean Corpuscular Hemoglobin Concent 30 g/dL (31-37) Red Cell Distribution Width 21.2 % (11.5-14.5) Platelet Count 266 x10^3/uL (140-400) Neutrophils (%) (Auto) 67 % (31-73) Lymphocytes (%) (Auto) 12 % (24-48) Monocytes (%) (Auto) 15 % (0-9) Eosinophils (%) (Auto) 6 % (0-3) Basophils (%) (Auto) 1 % (0-3) Neutrophils # (Auto) 5.5 x10^3uL (1.8-7.7) Lymphocytes # (Auto) 1.0 x10^3/uL (1.0-4.8) Monocytes # (Auto) 1.2 x10^3/uL (0.0-1.1) Eosinophils # (Auto) 0.5 x10^3/uL (0.0-0.7) Basophils # (Auto) 0.1 x10^3/uL (0.0-0.2) Sodium Level 142 mmol/L (136-145) Potassium Level 5.2 mmol/L (3.5-5.1) Chloride Level 107 mmol/L (98-107) Carbon Dioxide Level 24 mmol/L (21-32) Anion Gap 11 (6-14) Blood Urea Nitrogen 36 mg/dL (8-26) Creatinine 1.9 mg/dL (0.7-1.3) Estimated GFR (Cockcroft-Gault) 46.4 Glucose Level 123 mg/dL (70-99) Calcium Level 8.4 mg/dL (8.5-10.1) Glucose (Fingerstick) 158 mg/dL (70-99) 105 mg/dL (70-99) 116 mg/dL (70-99) Test 07/10/18 17:25 07/10/18 20:42 07/11/18 03:33 Glucose (Fingerstick) 80 mg/dL (70-99) 102 mg/dL (70-99) White Blood Count 7.0 x10^3/uL (4.0-11.0) Red Blood Count 4.01 x10^6/uL (4.30-5.70) Hemoglobin 9.7 g/dL (13.0-17.5) Hematocrit 32.0 % (39.0-53.0) Mean Corpuscular Volume 80 fL (79-100) Mean Corpuscular Hemoglobin 24 pg (25-35) Mean Corpuscular Hemoglobin Concent 30 g/dL (31-37) Red Cell Distribution Width 20.9 % (11.5-14.5) Platelet Count 265 x10^3/uL (140-400) Neutrophils (%) (Auto) 61 % (31-73) Lymphocytes (%) (Auto) 15 % (24-48) Monocytes (%) (Auto) 16 % (0-9) Eosinophils (%) (Auto) 8 % (0-3) Basophils (%) (Auto) 1 % (0-3) Neutrophils # (Auto) 4.2 x10^3uL (1.8-7.7) Lymphocytes # (Auto) 1.1 x10^3/uL (1.0-4.8) Monocytes # (Auto) 1.1 x10^3/uL (0.0-1.1) Eosinophils # (Auto) 0.6 x10^3/uL (0.0-0.7) Basophils # (Auto) 0.0 x10^3/uL (0.0-0.2) Sodium Level 140 mmol/L (136-145) Potassium Level 5.1 mmol/L (3.5-5.1) Chloride Level 105 mmol/L (98-107) Carbon Dioxide Level 26 mmol/L (21-32) Anion Gap 9 (6-14) Blood Urea Nitrogen 36 mg/dL (8-26) Creatinine 1.6 mg/dL (0.7-1.3) Estimated GFR (Cockcroft-Gault) 56.6 Glucose Level 97 mg/dL (70-99) Calcium Level 8.8 mg/dL (8.5-10.1) Magnesium Level 2.1 mg/dL (1.8-2.4) Laboratory Tests Test 07/10/18 07:20 07/10/18 11:33 07/10/18 14:28 07/10/18 17:25 Glucose (Fingerstick) 158 mg/dL (70-99) 105 mg/dL (70-99) 116 mg/dL (70-99) 80 mg/dL (70-99) Test 07/10/18 20:42 07/11/18 03:33 Glucose (Fingerstick) 102 mg/dL (70-99) White Blood Count 7.0 x10^3/uL (4.0-11.0) Red Blood Count 4.01 x10^6/uL (4.30-5.70) Hemoglobin 9.7 g/dL (13.0-17.5) Hematocrit 32.0 % (39.0-53.0) Mean Corpuscular Volume 80 fL (79-100) Mean Corpuscular Hemoglobin 24 pg (25-35) Mean Corpuscular Hemoglobin Concent 30 g/dL (31-37) Red Cell Distribution Width 20.9 % (11.5-14.5) Platelet Count 265 x10^3/uL (140-400) Neutrophils (%) (Auto) 61 % (31-73) Lymphocytes (%) (Auto) 15 % (24-48) Monocytes (%) (Auto) 16 % (0-9) Eosinophils (%) (Auto) 8 % (0-3) Basophils (%) (Auto) 1 % (0-3) Neutrophils # (Auto) 4.2 x10^3uL (1.8-7.7) Lymphocytes # (Auto) 1.1 x10^3/uL (1.0-4.8) Monocytes # (Auto) 1.1 x10^3/uL (0.0-1.1) Eosinophils # (Auto) 0.6 x10^3/uL (0.0-0.7) Basophils # (Auto) 0.0 x10^3/uL (0.0-0.2) Sodium Level 140 mmol/L (136-145) Potassium Level 5.1 mmol/L (3.5-5.1) Chloride Level 105 mmol/L (98-107) Carbon Dioxide Level 26 mmol/L (21-32) Anion Gap 9 (6-14) Blood Urea Nitrogen 36 mg/dL (8-26) Creatinine 1.6 mg/dL (0.7-1.3) Estimated GFR (Cockcroft-Gault) 56.6 Glucose Level 97 mg/dL (70-99) Calcium Level 8.8 mg/dL (8.5-10.1) Magnesium Level 2.1 mg/dL (1.8-2.4) Medications Active Scripts Medications Dose Route/Sig Max Daily Dose Days Date Category Bactrim Ds Tablet (Sulfamethoxazole/Trimethoprim) 1 Each Tablet 1 Tab PO BID 07/07/18 Reported Lisinopril 20 Mg Tablet 1 Tab PO DAILY 07/07/18 Reported Clopidogrel (Clopidogrel Bisulfate) 75 Mg Tablet 1 Tab PO DAILY 07/07/18 Reported Toujamila Solostar (Insulin Glargine,Hum.rec.anlog) 300 Unit/1 Ml Insuln.pen 300 Unit SQ BID 07/07/18 Reported Metformin Hcl 1,000 Mg Tablet 1,000 Mg PO BIDWMEALS 07/07/18 Reported Singulair Tablet (Montelukast Sodium) 10 Mg Tablet 1 Tab PO DAILY 07/07/18 Reported Coreg (Carvedilol) 6.25 Mg Tablet 6.25 Mg PO BIDWMEALS 07/07/18 Reported Pravastatin Sodium 20 Mg Tablet 1 Tab PO DAILY 07/07/18 Reported Cetirizine Hcl 10 Mg Tablet 1 Tab PO DAILY 07/07/18 Reported Bumetanide 1 Mg Tablet 1 Tab PO DAILY 07/07/18 Reported Linzess (Linaclotide) 145 Mcg Capsule 145 Mcg PO DAILY07 07/07/18 Reported Dexilant (Dexlansoprazole) 60 Mg Cap. 1 Cap PO DAILY 07/07/18 Reported Doxycycline Monohydrate 100 Mg Capsule 1 Cap PO BID 07/07/18 Reported Gabapentin (Gabapentin) 300 Mg Capsule 300 Mg PO HS 30 06/04/18 Rx Cefdinir 300 Mg Capsule 300 Mg PO BID 7 06/04/18 Rx Lantus Solostar (Insulin Glargine,Hum.rec.anlog) 100 Unit/1 Ml Insuln.pen 100 Unit SQ BID 06/04/18 Rx Humalog (Insulin Lispro) 100 Unit/1 Ml Vial 70 Unit SQ TIDAC 30 06/04/18 Rx Bevespi Aerosphere Inhaler (Glycopyrrolate/Formoterol Fum) 10.7 Gm Hfa.aer.ad 10.7 Gm IH DAILY 05/31/18 Reported Wellbutrin Xl (Bupropion Hcl) 300 Mg Tab.er.24h 1 Tab PO DAILY 01/19/18 Rx Furosemide 80 Mg Tablet 80 Mg PO DAILY 30 01/19/18 Rx Duoneb 0.5-3(2.5) Mg/3 Ml (Albuterol/Ipratropium) 3 Ml Ampul.neb 3 Ml NEB RTQID 30 01/19/18 Rx Carvedilol (Carvedilol) 6.25 Mg Tablet 1 Tab PO BID 01/15/18 Reported Pravastatin Sodium 20 Mg Tablet 1 Tab PO QHS 01/15/18 Reported Singulair Tablet (Montelukast Sodium) 10 Mg Tablet 10 Mg PO HS 01/15/18 Reported Famotidine 20 Mg Tablet 20 Mg PO HS 01/15/18 Reported Dexilant (Dexlansoprazole) 60 Mg Cap. 1 Cap PO DAILY 01/15/18 Reported Linzess (Linaclotide) 145 Mcg Capsule 145 Mcg PO DAILY 01/15/18 Reported Glucophage (Metformin Hcl) 1,000 Mg Tablet 1,000 Mg PO BIDWMEALS 04/04/17 Rx Lisinopril 20 Mg Tablet 20 Mg PO DAILY 04/04/17 Rx Aspirin Ec (Aspirin) 81 Mg Tablet.dr 81 Mg PO DAILYWBKFT 04/04/17 Rx Impression . 1. Acute hypoxic respiratory failure secondary to multifactorial etiologies includes combination of underlying chronic obstructive pulmonary disease with exacerbation, acute on chronic systolic heart failure with an ejection fraction now of of 15-20% and 75-pound weight gain in the last 6 months. 2. Abnormal previous CT chest and chest x-ray with bilateral interstitial infiltrates. This is a patient with severe cardiomyopathy and a two-vessel percutaneous coronary intervention done last year. I suspect ongoing systolic heart failure and less likely ILD. 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 Obstructive sleep apnea, Not able to fern picker CPAP yet. Poor compliance 4. Lower extremity cellulitis and lymphedema. 5. Morbid obesity. 6. Severe cardiomyopathy with previous echo with an ejection fraction of 15-20% and status post percutaneous coronary intervention of right coronary artery. 7. H/O Severe KATIUSKA 8. CKD Plan . 1. Discussed with the patient the importance of losing weight. gained 75 pounds in the last 6 months. 2. Continue present oxygen. 3. lasix drip, monitor renal function/ Dobutamine drip started by cardiology 4. empiric CPAP qhs in the hospital, the importance of [place] tx discussed, advised to use cpap during sleep. 5. follow cardiology rec 6. Set up CPAP as an outpatient. 7. Smoking cessation counseling provided. 8. CT chest reviewed. Not sig changed from previous one/ suspect ongoing mild CHF discussed w KASSANDRA Gann MD Jul 11, 2018 07:20
[2018-07-11 07:26] VITALS: BP 120/59
[2018-07-11] MEDS: BUDESONIDE 0.5 MG/2 ML NEBU. NEB SCH ×2 (07:57→20:14)
[2018-07-11] MEDS: IPRATRPIUM/ALBUTEROL 0.5/2.5MG 3 ML NEBU. NEB SCH ×4 (07:57→20:14)
[2018-07-11] MEDS: INSULIN LISPRO 300 UNITS/3 ML INSULN.PEN. SQ SCH ×3 (08:00→17:00)
[2018-07-11] MEDS: CLOPIDOGREL BISULFATE 75 MG TABLET PO SCH (08:58)
[2018-07-11] MEDS: buPROPion XL 150 MG TAB.ER.24H. PO SCH (08:58)
[2018-07-11] MEDS: ASPIRIN ENTERIC COATED 81 MG TABLET.DR. PO SCH (08:58)
[2018-07-11] MEDS: CETIRIZINE HCL 10 MG TABLET. PO SCH (08:58)
[2018-07-11] MEDS: FLUCONAZOLE 100 MG TABLET. PO SCH (08:58)
[2018-07-11] MEDS: CARVEDILOL 6.25 MG TABLET. PO SCH ×2 (08:58→17:55)
[2018-07-11] MEDS: LACTOBACILLUS RHAMNOSUS GG 1 CAPSULE. PO SCH ×2 (08:59→20:32)
[2018-07-11] MEDS: metFORMIN 500 MG TABLET PO SCH ×2 (08:59→17:00)
[2018-07-11] MEDS: metroNIDAZOLE 500 MG TABLET PO SCH (08:59)
[2018-07-11] MEDS: metOLazone 2.5 MG TABLET PO SCH (08:59)
[2018-07-11] MEDS: LISINOPRIL 20 MG TABLET PO SCH (08:59)
[2018-07-11] MEDS: NICOTINE 21MG PATCH. TD SCH (09:00)
[2018-07-11] MEDS: INSULIN GLARGINE 300 UNITS/3 ML INSULN.PEN. SQ SCH ×2 (09:00→20:53)
[2018-07-11] MEDS: DICLOFENAC SODIUM 1% TOPICAL GEL 100GM TUBE. TP SCH ×2 (09:01→20:31)
[2018-07-11] MEDS: CEFEPIME HCL IV Push 2 GM VIAL. IVP SCH ×2 (09:01→20:31)
--- NOTE | 2018-07-11 09:17 | PDOC ---
PROGRESS NOTES Subjective Subjective He c/o continued low back,left hip and right knee joint pain. Objective Objective Vital Signs Date Time Temp Pulse Resp B/P (MAP) Pulse Ox O2 Delivery O2 Flow Rate FiO2 07/11/18 07:58 98 Nasal Cannula 2.0 07/11/18 07:26 98.0 95 20 120/59 (79) 98.0 Intake and Output 07/11/18 07:00 Intake Total 1400 ml Output Total 3850 ml Balance -2450 ml Intake Oral 1400 ml Output Urine Total 3850 ml # Bowel Movements 1 Physical Exam Physical Exam He is alert,sitting in bedside chair and in no acute distress and he continues with painfully limited lumbar spine and knee joint ROM with tenderness to palpation over sacroiliac joints,trochanteric bursae and medial knee joint line. I thought of injecting his right knee joint but at the request of , to hold it until his infection is under better control. Assessment Assessment Problems Medical Problems: (1) Bilateral lower leg cellulitis Status: Acute Plan Plan of Care To continue present physical and occupational therapy follow up as he can tolerate. Comment Review of Relevant I have reviewed the following items mukund (where applicable) has been applied. Labs Laboratory Tests Test 07/09/18 10:52 07/09/18 16:42 07/09/18 20:55 07/10/18 04:30 Glucose (Fingerstick) 110 mg/dL (70-99) 133 mg/dL (70-99) 132 mg/dL (70-99) White Blood Count 8.2 x10^3/uL (4.0-11.0) Red Blood Count 3.99 x10^6/uL (4.30-5.70) Hemoglobin 9.6 g/dL (13.0-17.5) Hematocrit 31.9 % (39.0-53.0) Mean Corpuscular Volume 80 fL (79-100) Mean Corpuscular Hemoglobin 24 pg (25-35) Mean Corpuscular Hemoglobin Concent 30 g/dL (31-37) Red Cell Distribution Width 21.2 % (11.5-14.5) Platelet Count 266 x10^3/uL (140-400) Neutrophils (%) (Auto) 67 % (31-73) Lymphocytes (%) (Auto) 12 % (24-48) Monocytes (%) (Auto) 15 % (0-9) Eosinophils (%) (Auto) 6 % (0-3) Basophils (%) (Auto) 1 % (0-3) Neutrophils # (Auto) 5.5 x10^3uL (1.8-7.7) Lymphocytes # (Auto) 1.0 x10^3/uL (1.0-4.8) Monocytes # (Auto) 1.2 x10^3/uL (0.0-1.1) Eosinophils # (Auto) 0.5 x10^3/uL (0.0-0.7) Basophils # (Auto) 0.1 x10^3/uL (0.0-0.2) Sodium Level 142 mmol/L (136-145) Potassium Level 5.2 mmol/L (3.5-5.1) Chloride Level 107 mmol/L (98-107) Carbon Dioxide Level 24 mmol/L (21-32) Anion Gap 11 (6-14) Blood Urea Nitrogen 36 mg/dL (8-26) Creatinine 1.9 mg/dL (0.7-1.3) Estimated GFR (Cockcroft-Gault) 46.4 Glucose Level 123 mg/dL (70-99) Calcium Level 8.4 mg/dL (8.5-10.1) Test 07/10/18 07:20 07/10/18 11:33 07/10/18 14:28 07/10/18 17:25 Glucose (Fingerstick) 158 mg/dL (70-99) 105 mg/dL (70-99) 116 mg/dL (70-99) 80 mg/dL (70-99) Test 07/10/18 20:42 07/11/18 03:33 07/11/18 06:59 Glucose (Fingerstick) 102 mg/dL (70-99) 119 mg/dL (70-99) White Blood Count 7.0 x10^3/uL (4.0-11.0) Red Blood Count 4.01 x10^6/uL (4.30-5.70) Hemoglobin 9.7 g/dL (13.0-17.5) Hematocrit 32.0 % (39.0-53.0) Mean Corpuscular Volume 80 fL (79-100) Mean Corpuscular Hemoglobin 24 pg (25-35) Mean Corpuscular Hemoglobin Concent 30 g/dL (31-37) Red Cell Distribution Width 20.9 % (11.5-14.5) Platelet Count 265 x10^3/uL (140-400) Neutrophils (%) (Auto) 61 % (31-73) Lymphocytes (%) (Auto) 15 % (24-48) Monocytes (%) (Auto) 16 % (0-9) Eosinophils (%) (Auto) 8 % (0-3) Basophils (%) (Auto) 1 % (0-3) Neutrophils # (Auto) 4.2 x10^3uL (1.8-7.7) Lymphocytes # (Auto) 1.1 x10^3/uL (1.0-4.8) Monocytes # (Auto) 1.1 x10^3/uL (0.0-1.1) Eosinophils # (Auto) 0.6 x10^3/uL (0.0-0.7) Basophils # (Auto) 0.0 x10^3/uL (0.0-0.2) Sodium Level 140 mmol/L (136-145) Potassium Level 5.1 mmol/L (3.5-5.1) Chloride Level 105 mmol/L (98-107) Carbon Dioxide Level 26 mmol/L (21-32) Anion Gap 9 (6-14) Blood Urea Nitrogen 36 mg/dL (8-26) Creatinine 1.6 mg/dL (0.7-1.3) Estimated GFR (Cockcroft-Gault) 56.6 Glucose Level 97 mg/dL (70-99) Calcium Level 8.8 mg/dL (8.5-10.1) Magnesium Level 2.1 mg/dL (1.8-2.4) Laboratory Tests Test 07/10/18 11:33 07/10/18 14:28 07/10/18 17:25 07/10/18 20:42 Glucose (Fingerstick) 105 mg/dL (70-99) 116 mg/dL (70-99) 80 mg/dL (70-99) 102 mg/dL (70-99) Test 07/11/18 03:33 07/11/18 06:59 White Blood Count 7.0 x10^3/uL (4.0-11.0) Red Blood Count 4.01 x10^6/uL (4.30-5.70) Hemoglobin 9.7 g/dL (13.0-17.5) Hematocrit 32.0 % (39.0-53.0) Mean Corpuscular Volume 80 fL (79-100) Mean Corpuscular Hemoglobin 24 pg (25-35) Mean Corpuscular Hemoglobin Concent 30 g/dL (31-37) Red Cell Distribution Width 20.9 % (11.5-14.5) Platelet Count 265 x10^3/uL (140-400) Neutrophils (%) (Auto) 61 % (31-73) Lymphocytes (%) (Auto) 15 % (24-48) Monocytes (%) (Auto) 16 % (0-9) Eosinophils (%) (Auto) 8 % (0-3) Basophils (%) (Auto) 1 % (0-3) Neutrophils # (Auto) 4.2 x10^3uL (1.8-7.7) Lymphocytes # (Auto) 1.1 x10^3/uL (1.0-4.8) Monocytes # (Auto) 1.1 x10^3/uL (0.0-1.1) Eosinophils # (Auto) 0.6 x10^3/uL (0.0-0.7) Basophils # (Auto) 0.0 x10^3/uL (0.0-0.2) Sodium Level 140 mmol/L (136-145) Potassium Level 5.1 mmol/L (3.5-5.1) Chloride Level 105 mmol/L (98-107) Carbon Dioxide Level 26 mmol/L (21-32) Anion Gap 9 (6-14) Blood Urea Nitrogen 36 mg/dL (8-26) Creatinine 1.6 mg/dL (0.7-1.3) Estimated GFR (Cockcroft-Gault) 56.6 Glucose Level 97 mg/dL (70-99) Calcium Level 8.8 mg/dL (8.5-10.1) Magnesium Level 2.1 mg/dL (1.8-2.4) Glucose (Fingerstick) 119 mg/dL (70-99) Microbiology 07/07/18 Blood Culture - Preliminary, Resulted NO GROWTH AFTER 3 DAYS Medications Current Medications Ondansetron HCl (Zofran) 4 mg 1X ONCE IV Last administered on 07/07/18at 18:36; Start 07/07/18 at 18:15; Stop 07/07/18 at 18:16; Status DC Morphine Sulfate (Morphine Sulfate) 4 mg 1X ONCE IV Last administered on at 18:38; Start 07/07/18 at 18:15; Stop 07/07/18 at 18:16; Status DC Vancomycin HCl (Vanco Per Pharmacy) 1 each PRN DAILY PRN MC SEE COMMENTS Last administered on 07/07/18at 21:02; Start 07/07/18 at 18:45; Stop 07/08/18 at 11:22; Status DC Vancomycin HCl 2 gm/Sodium Chloride 500 ml @ 250 mls/hr 1X ONCE IV Last administered on 07/07/18at 18:54; Start 07/07/18 at 19:00; Stop 07/07/18 at 20:59; Status DC Morphine Sulfate (Morphine Sulfate) 4 mg PRN Q2HR PRN IV PAIN Last administered on 07/08/18 19:08; Start 07/07/18 at 20:15; Stop 07/08/18 at 20:14; Status DC Acetaminophen (Tylenol) 650 mg PRN Q4HRS PRN PO FEVER; Start 07/07/18 at 20:15; Stop 07/08/18 at 20:14; Status DC Vancomycin HCl 1.75 gm/Sodium Chloride 500 ml @ 250 mls/hr Q8H IV Last administered on 07/08/18 03:22; Start 07/08/18 at 03:00; Stop 07/08/18 at 11:22; Status DC Vancomycin HCl (Vancomycin Trough Level) 1 each 1X ONCE MC ; Start 07/08/18 at 18:30; Stop 07/08/18 at 18:30; Status DC Albuterol Sulfate (Ventolin Neb Soln) 2.5 mg PRN Q4HRS PRN NEB SHORTNESS OF BREATH Last administered on 07/08/18at 08:01; Start 07/07/18 at 23:15 Bumetanide (Bumex) 1 mg DAILY PO Last administered on 07/08/18at 09:06; Start 07/08/18 at 09:00; Stop 07/08/18 at 13:02; Status DC Carvedilol (Coreg) 6.25 mg BIDWMEALS PO Last administered on 07/10/18 17:36; Start 07/08/18 at 08:00 Carvedilol (Coreg) 6.25 mg BIDWMEALS PO ; Start 07/08/18 at 08:00; Status UNV Cetirizine HCl (ZyrTEC) 10 mg DAILY PO Last administered on 07/10/18 08:14; Start 07/08/18 at 09:00 Clopidogrel Bisulfate (Plavix) 75 mg DAILY PO Last administered on 07/10/18 08: 14; Start 07/08/18 at 09:00 Lisinopril (Prinivil) 20 mg DAILY PO Last administered on 07/10/18 08:18; Start 07/08/18 at 09:00 Trimethoprim/ Sulfamethoxazole (Bactrim Ds) 1 tab BID PO ; Start 07/08/18 at 09: 00; Status UNV Pantoprazole Sodium (Protonix) 40 mg DAILYAC PO Last administered on 07/11/18 06:25; Start 07/08/18 at 07:30 Non-Formulary Medication (Doxycycline Monohydrate ) 1 cap BID PO ; Start at 09:00; Status UNV Insulin Glargine (Lantus) 80 units DAILYAC SQ Last administered on 07/08/18 09: 42; Start 07/08/18 at 07:30; Stop 07/08/18 at 10:21; Status DC Non-Formulary Medication (Linaclotide (Linzess)) 145 mcg DAILY07 PO Last administered on 07/09/18 07:00; Start 07/08/18 at 07:00; Stop 07/10/18 at 16:57; Status DC Metformin HCl (Glucophage) 1,000 mg BIDWMEALS PO Last administered on 07/10/18 17:36; Start 07/08/18 at 08:00 Montelukast Sodium (Singulair) 10 mg QHS PO Last administered on 07/10/18 20:48 ; Start 07/08/18 at 21:00 Atorvastatin Calcium (Lipitor) 5 mg QHS PO Last administered on 07/10/18 20:48 ; Start 07/08/18 at 21:00 Insulin Glargine (Lantus) 80 units 1400 SQ ; Start 07/08/18 at 14:00; Status Cancel Aspirin (Ecotrin) 81 mg DAILYWBKFT PO Last administered on 07/10/18 08:15; Start 07/08/18 at 11:00 Carvedilol (Coreg) 6.25 mg BIDWMEALS PO ; Start 07/08/18 at 11:00; Status Cancel Famotidine (Pepcid) 20 mg HS PO Last administered on 07/10/18at 20:48; Start 07/08 at 21:00 Furosemide (Lasix) 80 mg DAILY PO Last administered on 07/08/18at 12:47; Start at 11:00; Stop 07/08/18 at 13:02; Status DC Gabapentin (Neurontin) 300 mg HS PO Last administered on 07/10/18 20:48; Start 07/08/18 at 21:00 Insulin Glargine (Lantus) 100 units BID SQ ; Start 07/08/18 at 21:00; Status Cancel Insulin Human Lispro (HumaLOG) 70 units TIDWMEALS SQ Last administered on at 12:50; Start 07/08/18 at 12:00 Albuterol/ Ipratropium (Duoneb) 3 ml RTQID NEB Last administered on 07/11/18at 07 :57; Start 07/08/18 at 12:00 Bupropion HCl (Wellbutrin Xl) 300 mg DAILY PO Last administered on 07/10/18 08: 14; Start 07/08/18 at 11:00 Non-Formulary Medication (Dexlansoprazole (Dexilant)) 1 cap DAILY PO ; Start 07/09/18 at 09:00; Stop 07/09/18 at 09:00; Status DC Non-Formulary Medication (Glycopyrrolate/ Formoterol Fum (Bevespi Aerosphere Inhaler)) 10.7 gm DAILY IH ; Start 07/09/18 at 09:00; Stop 07/10/18 at 10:43; Status DC Non-Formulary Medication (Linaclotide (Linzess)) 145 mcg DAILY PO ; Start at 09:00; Status UNV Non-Formulary Medication (Metformin Hcl (Glucophage)) 1,000 mg BIDWMEALS PO ; Start 07/08/18 at 17:00; Status UNV Non-Formulary Medication (Montelukast Sodium (Singulair Tablet)) 10 mg HS PO ; Start 07/08/18 at 21:00; Status UNV Non-Formulary Medication (Pravastatin Sodium ) 1 tab QHS PO ; Start 07/08/18 at 21:00; Status UNV Insulin Glargine (Lantus) 80 units BID SQ Last administered on 07/10/18 20:50; Start 07/08/18 at 21:00 Ondansetron HCl (Zofran) 4 mg PRN Q6HRS PRN IV NAUSEA/VOMITING Last administered on 07/08/18 19:26; Start 07/08/18 at 11:15 Nicotine (Nicoderm Cq 21mg) 1 patch DAILY TD Last administered on 07/10/18 08: 42; Start 07/08/18 at 11:30 Albuterol Sulfate (Ventolin Neb Soln) 2.5 mg RTQID NEB ; Start 07/08/18 at 12:00 ; Stop 07/08/18 at 12:01; Status DC Linezolid (Zyvox) 600 mg BID PO Last administered on 07/10/18 20:48; Start 07/08 at 12:00 Metronidazole (Flagyl) 500 mg Q12HR PO Last administered on 07/10/18 20:47; Start 07/08/18 at 12:00 Fluconazole (Diflucan) 100 mg DAILY PO Last administered on 07/10/18 08:19; Start 07/08/18 at 12:00 Cefepime HCl (Maxipime) 2 gm Q12HR IVP Last administered on 07/10/18 20:49; Start 07/08/18 at 12:00 Diclofenac Sodium (Voltaren) 1 chung BID TP Last administered on 07/10/18 20:49; Start 07/08/18 at 21:00 Metolazone (Zaroxolyn) 5 mg DAILY PO Last administered on 07/10/18 08:29; Start 07/08/18 at 14:00 Furosemide (Lasix) 40 mg 1X ONCE IVP Last administered on 07/08/18 17:56; Start 07/08/18 at 13:00; Stop 07/08/18 at 13:19; Status DC Furosemide (Lasix) 40 mg Q6HRS IVP Last administered on 07/09/18 06:17; Start 07/08/18 at 18:00; Stop 07/09/18 at 11:26; Status DC Diphenhydramine HCl (Benadryl) 25 mg PRN Q6HRS PRN PO ITCHING Last administered on 07/11/18 03:05; Start 07/08/18 at 20:00 Lactobacillus Rhamnosus (Culturelle) 1 cap BID PO Last administered on 20:48; Start 07/08/18 at 21:00 Acetaminophen/ Hydrocodone Bitart (Lortab 5/325) 1 tab PRN Q4HRS PRN PO PAIN Last administered on 07/11/18 06:25; Start 07/09/18 at 10:30 Dobutamine HCl/ Dextrose 250 ml @ 32.318 mls/ hr CONT PRN IV PER PROTOCOL Last administered on 07/11/18 01:19; Start 07/09/18 at 11:30 Furosemide 100 mg/ Sodium Chloride 100 ml @ 5 mls/hr CONT PRN IV SEE I/O RECORD Last administered on 07/11/18 02:33; Start 07/09/18 at 11:15 Methylprednisolone Acetate (DEPO-Medrol 40MG VIAL) 40 mg 1X ONCE IM Last administered on 07/10/18 09:15; Start 07/10/18 at 09:15; Stop 07/10/18 at 09:21; Status DC Bupivacaine HCl (Sensorcaine-Mpf 0.25%) 10 ml 1X ONCE IJ Last administered on 07/10/18 09:15; Start 07/10/18 at 09:15; Stop 07/10/18 at 09:21; Status DC Enoxaparin Sodium (Lovenox 80mg Syringe) 80 mg Q12HR SQ ; Start 07/10/18 at 10:15 ; Stop 07/10/18 at 11:14; Status DC Budesonide (Pulmicort) 0.5 mg RTBID NEB Last administered on 07/11/18 07:57; Start 07/10/18 at 20:00 Budesonide (Pulmicort) 0.5 mg 1X ONCE NEB Last administered on 07/10/18 11:25 ; Start 07/10/18 at 10:15; Stop 07/10/18 at 10:31; Status DC Enoxaparin Sodium (Lovenox 60mg Syringe) 60 mg Q12HR SQ Last administered on 07/10/18at 20:47; Start 07/10/18 at 12:00 Lubiprostone (Amitiza) 8 mcg BIDWMEALS PO Last administered on 07/10/18at 17:36; Start 07/10/18 at 14:00; Stop 07/10/18 at 20:00; Status DC Non-Formulary Medication (Linaclotide (Linzess)) 145 mcg DAILY07 PO ; Start 07/11 at 07:00 Zolpidem Tartrate (Ambien) 5 mg PRN QHS PRN PO INSOMNIA; Start 07/10/18 at 18:15 Active Scripts Active Gabapentin (Gabapentin) 300 Mg Capsule 300 Mg PO HS 30 Days Cefdinir 300 Mg Capsule 300 Mg PO BID 7 Days Lantus Solostar (Insulin Glargine,Hum.rec.anlog) 100 Unit/1 Ml Insuln.pen 100 Unit SQ BID Humalog (Insulin Lispro) 100 Unit/1 Ml Vial 70 Unit SQ TIDAC 30 Days Wellbutrin Xl (Bupropion Hcl) 300 Mg Tab.er.24h 1 Tab PO DAILY Furosemide 80 Mg Tablet 80 Mg PO DAILY 30 Days Duoneb 0.5-3(2.5) Mg/3 Ml (Albuterol/Ipratropium) 3 Ml Ampul.neb 3 Ml NEB RTQID 30 Days Glucophage (Metformin Hcl) 1,000 Mg Tablet 1,000 Mg PO BIDWMEALS Lisinopril 20 Mg Tablet 20 Mg PO DAILY Aspirin Ec (Aspirin) 81 Mg Tablet.dr 81 Mg PO DAILYWBKFT Reported Bactrim Ds Tablet (Sulfamethoxazole/Trimethoprim) 1 Each Tablet 1 Tab PO BID Lisinopril 20 Mg Tablet 1 Tab PO DAILY Clopidogrel (Clopidogrel Bisulfate) 75 Mg Tablet 1 Tab PO DAILY Toujeo Solostar (Insulin Glargine,Hum.rec.anlog) 300 Unit/1 Ml Insuln.pen 300 Unit SQ BID Metformin Hcl 1,000 Mg Tablet 1,000 Mg PO BIDWMEALS Singulair Tablet (Montelukast Sodium) 10 Mg Tablet 1 Tab PO DAILY Coreg (Carvedilol) 6.25 Mg Tablet 6.25 Mg PO BIDWMEALS Pravastatin Sodium 20 Mg Tablet 1 Tab PO DAILY Cetirizine Hcl 10 Mg Tablet 1 Tab PO DAILY Bumetanide 1 Mg Tablet 1 Tab PO DAILY Linzess (Linaclotide) 145 Mcg Capsule 145 Mcg PO DAILY07 Dexilant (Dexlansoprazole) 60 Mg Cap. 1 Cap PO DAILY Doxycycline Monohydrate 100 Mg Capsule 1 Cap PO BID Bevespi Aerosphere Inhaler (Glycopyrrolate/Formoterol Fum) 10.7 Gm Hfa.aer.ad 10.7 Gm IH DAILY Carvedilol (Carvedilol) 6.25 Mg Tablet 1 Tab PO BID Pravastatin Sodium 20 Mg Tablet 1 Tab PO QHS Singulair Tablet (Montelukast Sodium) 10 Mg Tablet 10 Mg PO HS Famotidine 20 Mg Tablet 20 Mg PO HS Dexilant (Dexlansoprazole) 60 Mg Cap. 1 Cap PO DAILY Linzess (Linaclotide) 145 Mcg Capsule 145 Mcg PO DAILY Vitals/I & O Vital Sign - Last 24 Hours 07/10/18 07/10/18 07/10/18 07/10/18 10:41 11:19 11:25 14:36 Temp 97.8 98.4 97.8 98.4 Pulse 96 85 Resp 20 17 B/P (MAP) 129/66 (87) 138/79 (98) Pulse Ox 95 91 98 O2 Delivery Nasal Cannula Room Air Nasal Cannula Room Air O2 Flow Rate 4.0 3.0 07/10/18 07/10/18 07/10/18 07/10/18 16:27 16:55 17:36 19:00 Temp 98.1 98.1 Pulse 85 92 Resp 20 B/P (MAP) 138/79 123/64 (83) Pulse Ox 98 96 O2 Delivery Room Air Nasal Cannula Room Air O2 Flow Rate 2.0 07/10/18 07/10/18 07/10/18 07/10/18 19:40 20:01 20:51 23:00 Temp 97.7 97.7 Pulse 91 Resp 16 22 B/P (MAP) 114/97 (103) Pulse Ox 98 96 O2 Delivery Nasal Cannula Nasal Cannula Nasal Cannula Room Air O2 Flow Rate 3.0 2.0 3.0 07/11/18 07/11/18 07/11/1807/11/19 01:32 01:45 02:32 03:00 Temp 97.4 97.4 Pulse 96 Resp 16 16 B/P (MAP) 123/76 (92) Pulse Ox 96 96 93 O2 Delivery BiPAP/CPAP BiPAP/CPAP Nasal Cannula Room Air O2 Flow Rate 3.0 07/11/18 07/11/18 07/11/18 06:25 07:26 07:58 Temp 98.0 98.0 Pulse 95 Resp 16 20 B/P (MAP) 120/59 (79) Pulse Ox 93 94 98 O2 Delivery Room Air Room Air Nasal Cannula O2 Flow Rate 2.0 Intake and Output 07/10/18 07/10/18 07/11/18 15:00 23:00 07:00 Intake Total 600 ml 0 ml 800 ml Output Total 1350 ml 1500 ml 1000 ml Balance -750 ml -1500 ml -200 ml ALVARO RHOADES MD Jul 11, 2018 09:17
--- NOTE | 2018-07-11 09:18 | PDOC ---
Infectious Disease Note Subjective Subjective Feeling alright No F/C/S/N/V/D/pain ROS ROS per HPI Vital Sign Vital Signs Vital Signs Date Time Temp Pulse Resp B/P (MAP) Pulse Ox O2 Delivery O2 Flow Rate FiO2 07/11/18 07:58 98 Nasal Cannula 2.0 07/11/18 07:26 98.0 95 20 120/59 (79) 98.0 Physical Exam PHYSICAL EXAM GENERAL: Lying down,alert, NAD HEENT: Pupils equal and reactive. Oral cavity, pharynx is clear. NECK: Supple. LUNGS: Clear to auscultation. HEART: S1, S2. ABDOMEN: Morbidly obese, soft, no guarding, no rebound. He has got some pitting thickness of his lower extremity abdominal area, mild improvement EXTREMITIES: No clubbing, cyanosis. Chronic swelling of the bilateral lower extremities, left greater than right and also had some fullness and thickening of groin tissue of his left thigh. SKIN: Otherwise warm to touch without signs of rash. NEUROLOGIC: Nonfocal and appropriate. PIV Labs Lab Laboratory Tests Test 07/10/18 11:33 07/10/18 14:28 07/10/18 17:25 07/10/18 20:42 Glucose (Fingerstick) 105 mg/dL (70-99) 116 mg/dL (70-99) 80 mg/dL (70-99) 102 mg/dL (70-99) Test 07/11/18 03:33 07/11/18 06:59 White Blood Count 7.0 x10^3/uL (4.0-11.0) Red Blood Count 4.01 x10^6/uL (4.30-5.70) Hemoglobin 9.7 g/dL (13.0-17.5) Hematocrit 32.0 % (39.0-53.0) Mean Corpuscular Volume 80 fL (79-100) Mean Corpuscular Hemoglobin 24 pg (25-35) Mean Corpuscular Hemoglobin Concent 30 g/dL (31-37) Red Cell Distribution Width 20.9 % (11.5-14.5) Platelet Count 265 x10^3/uL (140-400) Neutrophils (%) (Auto) 61 % (31-73) Lymphocytes (%) (Auto) 15 % (24-48) Monocytes (%) (Auto) 16 % (0-9) Eosinophils (%) (Auto) 8 % (0-3) Basophils (%) (Auto) 1 % (0-3) Neutrophils # (Auto) 4.2 x10^3uL (1.8-7.7) Lymphocytes # (Auto) 1.1 x10^3/uL (1.0-4.8) Monocytes # (Auto) 1.1 x10^3/uL (0.0-1.1) Eosinophils # (Auto) 0.6 x10^3/uL (0.0-0.7) Basophils # (Auto) 0.0 x10^3/uL (0.0-0.2) Sodium Level 140 mmol/L (136-145) Potassium Level 5.1 mmol/L (3.5-5.1) Chloride Level 105 mmol/L (98-107) Carbon Dioxide Level 26 mmol/L (21-32) Anion Gap 9 (6-14) Blood Urea Nitrogen 36 mg/dL (8-26) Creatinine 1.6 mg/dL (0.7-1.3) Estimated GFR (Cockcroft-Gault) 56.6 Glucose Level 97 mg/dL (70-99) Calcium Level 8.8 mg/dL (8.5-10.1) Magnesium Level 2.1 mg/dL (1.8-2.4) Glucose (Fingerstick) 119 mg/dL (70-99) Arterial study 1. Limited exam as described above. 2. Bilateral monophasic Doppler waveforms raising the possibility of aortoiliac inflow disease. 3. No high-grade femoral-popliteal stenosis was identified. 4. Nonvisualization of the anterior tibial arteries in both lower legs is probably on a technical basis, since good blood flow is evident in the dorsalis pedis arteries bilaterally. Micro 07/07/18 Blood Culture - Preliminary, Resulted NO GROWTH AFTER 3 DAYS Objective Assessment ? Left upper thigh cellulitis/yeast vs fluid retention - normal Procalcitonin NURY - stable Fluid overload Augmentin allergy - rash Morbid Obesity DM Plan Plan of Care Cont Po Zyvox, Cefepime, Flagyl, Fluconazole Probiotics Diuresis BC NGTD Attending Co-Sign The patient was seen and interviewed as well as examined at the bedside. The chart was reviewed. The case was discussed. Agree with the plan of care. DELFIN MCCRAY CIVIL CLERK Jul 11, 2018 09:18 CUCO TRENT MD Jul 11, 2018 11:05
[2018-07-11] MEDS: LINEZOLID 600 MG TABLET PO SCH (09:20)
[2018-07-11] MEDS: HYDROcodone/APAP 10/325 1 TAB TABLET PO PRN ×2 (11:26→18:19)
[2018-07-11 11:33] VITALS: BP 123/66
--- NOTE | 2018-07-11 11:36 | PDOC ---
PROGRESS NOTES Subjective Subjective pt feeling better today Objective Objective Vital Signs Date Time Temp Pulse Resp B/P (MAP) Pulse Ox O2 Delivery O2 Flow Rate FiO2 07/11/18 11:33 97.5 89 20 123/66 (85) 93 Room Air 97.5 07/11/18 11:26 3.0 Intake and Output 07/11/18 07:00 Intake Total 1400 ml Output Total 3850 ml Balance -2450 ml Intake Oral 1400 ml Output Urine Total 3850 ml # Bowel Movements 1 Physical Exam Abdomen: Normal bowel sounds, Soft, No tenderness Heart: Regular rate, Normal S1, Normal S2 Extremities: No clubbing, Other (2-4+ EDEMA) General: Alert, Oriented X3, Cooperative, No acute distress HEENT: Atraumatic, PERRLA, EOMI, Mucous membr. moist/pink Lungs: Clear to auscultation MUSCULOSKELETAL: No joint tenderness, No deformity Neuro: Normal speech Psych/Mental Status: Mental status NL, Mood NL Skin: No breakdown, Other (STASIS DISCOLOARATION BILATERALLY AND ERYTHEMA BILATERALLY IN LE) COMMENT abd wall edema Diagnosis Problem List Problems Medical Problems: (1) Bilateral lower leg cellulitis Status: Acute Assessment Assessment Problems Medical Problems: (1) Bilateral lower leg cellulitis Status: Acute IMPRESSION: 1. Possible cellulitis of the lower extremities. 2. Chronic edema of both lower extremities and lymphedema. 3. 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 4. Respiratory failure, hypoxic. 5. Morbid obesity. 6. Obstructive sleep apnea, CPAP, noncompliant. 7. Diabetes mellitus type 2, insulin-dependent, noncompliant. 8. Chronic obstructive pulmonary disease. 9. Hyperkalemia. 10. Slow transit constipation. 11. Osteoarthritis of both knees. 12. Physical deconditioning. 13. History of right lower lung nodule. 14. Gastroesophageal reflux disease with esophagitis. 15. Mixed hyperlipidemia. 16. Noncompliance. 17. Anemia of chronic disease. 18. Coronary artery disease with 2-vessel coronary artery disease status post drug-eluting stent of the right coronary artery on 04/03/2017. PLAN: iv lasix drip+ dobutamine drip cr 1.6, stable and improving echo 15%. renal consult. monitor kidney function morbid obesity. rehab consult appreciated spoke with ID streamline antibiotics fluid restriction Plan Plan of Care Problems Medical Problems: (1) Bilateral lower leg cellulitis Status: Acute Comment Review of Relevant I have reviewed the following items mukund (where applicable) has been applied. Labs Laboratory Tests Test 07/10/18 14:28 07/10/18 17:25 07/10/18 20:42 07/11/18 03:33 Glucose (Fingerstick) 116 mg/dL (70-99) 80 mg/dL (70-99) 102 mg/dL (70-99) White Blood Count 7.0 x10^3/uL (4.0-11.0) Red Blood Count 4.01 x10^6/uL (4.30-5.70) Hemoglobin 9.7 g/dL (13.0-17.5) Hematocrit 32.0 % (39.0-53.0) Mean Corpuscular Volume 80 fL (79-100) Mean Corpuscular Hemoglobin 24 pg (25-35) Mean Corpuscular Hemoglobin Concent 30 g/dL (31-37) Red Cell Distribution Width 20.9 % (11.5-14.5) Platelet Count 265 x10^3/uL (140-400) Neutrophils (%) (Auto) 61 % (31-73) Lymphocytes (%) (Auto) 15 % (24-48) Monocytes (%) (Auto) 16 % (0-9) Eosinophils (%) (Auto) 8 % (0-3) Basophils (%) (Auto) 1 % (0-3) Neutrophils # (Auto) 4.2 x10^3uL (1.8-7.7) Lymphocytes # (Auto) 1.1 x10^3/uL (1.0-4.8) Monocytes # (Auto) 1.1 x10^3/uL (0.0-1.1) Eosinophils # (Auto) 0.6 x10^3/uL (0.0-0.7) Basophils # (Auto) 0.0 x10^3/uL (0.0-0.2) Sodium Level 140 mmol/L (136-145) Potassium Level 5.1 mmol/L (3.5-5.1) Chloride Level 105 mmol/L (98-107) Carbon Dioxide Level 26 mmol/L (21-32) Anion Gap 9 (6-14) Blood Urea Nitrogen 36 mg/dL (8-26) Creatinine 1.6 mg/dL (0.7-1.3) Estimated GFR (Cockcroft-Gault) 56.6 Glucose Level 97 mg/dL (70-99) Calcium Level 8.8 mg/dL (8.5-10.1) Magnesium Level 2.1 mg/dL (1.8-2.4) Test 07/11/18 06:59 07/11/18 11:04 Glucose (Fingerstick) 119 mg/dL (70-99) 106 mg/dL (70-99) Microbiology 07/07/18 Blood Culture - Preliminary, Resulted NO GROWTH AFTER 3 DAYS Medications Current Medications Acetaminophen/ Hydrocodone Bitart (Lortab 10) 1 tab PRN Q6HRS PRN PO PAIN Last administered on 07/11/18at 11:26; Start 07/11/18 at 09:15 Budesonide (Pulmicort) 0.5 mg RTBID NEB Last administered on 07/11/18at 07:57; Start 07/10/18 at 20:00 Enoxaparin Sodium (Lovenox 60mg Syringe) 60 mg Q12HR SQ Last administered on 07/11/18at 09:03; Start 07/10/18 at 12:00 Lubiprostone (Amitiza) 8 mcg BIDWMEALS PO Last administered on 07/10/18at 17:36; Start 07/10/18 at 14:00; Stop 07/10/18 at 20:00; Status DC Non-Formulary Medication (Linaclotide (Linzess)) 145 mcg DAILY07 PO ; Start 07/11 at 07:00 Zolpidem Tartrate (Ambien) 5 mg PRN QHS PRN PO INSOMNIA; Start 07/10/18 at 18:15 Vitals/I & O Vital Sign - Last 24 Hours 07/10/18 07/10/18 07/10/18 07/10/18 14:36 16:27 16:55 17:36 Temp 98.4 98.4 Pulse 85 85 Resp 17 B/P (MAP) 138/79 (98) 138/79 Pulse Ox 98 98 O2 Delivery Room Air Room Air Nasal Cannula O2 Flow Rate 2.0 07/10/18 07/10/18 07/10/18 07/10/18 19:00 19:40 20:01 20:51 Temp 98.1 98.1 Pulse 92 Resp 20 16 B/P (MAP) 123/64 (83) Pulse Ox 96 98 O2 Delivery Room Air Nasal Cannula Nasal Cannula Nasal Cannula O2 Flow Rate 3.0 2.0 3.0 07/10/18 07/11/18 07/11/18 07/11/18 23:00 01:32 01:45 02:32 Temp 97.7 97.7 Pulse 91 Resp 22 16 B/P (MAP) 114/97 (103) Pulse Ox 96 96 96 O2 Delivery Room Air BiPAP/CPAP BiPAP/CPAP Nasal Cannula O2 Flow Rate 3.0 07/11/18 07/11/18 07/11/18 07/11/18 03:00 06:25 07:26 07:58 Temp 97.4 98.0 97.4 98.0 Pulse 96 95 Resp 16 16 20 B/P (MAP) 123/76 (92) 120/59 (79) Pulse Ox 93 93 94 98 O2 Delivery Room Air Room Air Room Air Nasal Cannula O2 Flow Rate 2.0 07/11/18 07/11/18 07/11/18 07/11/18 08:58 08:59 09:00 11:26 Pulse 95 95 B/P (MAP) 120/59 120/59 O2 Delivery Room Air Room Air O2 Flow Rate 3.0 07/11/18 11:33 Temp 97.5 97.5 Pulse 89 Resp 20 B/P (MAP) 123/66 (85) Pulse Ox 93 O2 Delivery Room Air Intake and Output 07/10/18 07/10/18 07/11/18 15:00 23:00 07:00 Intake Total 600 ml 0 ml 800 ml Output Total 1350 ml 1500 ml 1000 ml Balance -750 ml -1500 ml -200 ml ARYA SAENZ MD Jul 11, 2018 11:36
--- NOTE | 2018-07-11 13:55 | NUR ---
FACULTY CO-SIGN I have reviewed the documentation by nursing program chair: Addendum: 07/11/18 at 1356 by LAURENT HYDE RN Amended: Links added.
--- NOTE | 2018-07-11 14:40 | PDOC ---
SUBJECTIVE ROS No new complaints, c/o Chronic Leg pain OBJECTIVE Vital Signs Vital Signs Date Time Temp Pulse Resp B/P (MAP) Pulse Ox O2 Delivery O2 Flow Rate FiO2 07/11/18 12:26 98 Room Air 4.0 07/11/18 11:33 97.5 89 20 123/66 (85) 97.5 I & 0 Intake and Output 07/11/18 07:00 Intake Total 1400 ml Output Total 3850 ml Balance -2450 ml Intake Oral 1400 ml Output Urine Total 3850 ml # Bowel Movements 1 PHYSICAL EXAM Physical Exam Gen: NAD, sitting up eating Lunch HEENT: OM moist , On RA NECK: Supple. LUNGS: Clear to auscultation. HEART: S1, S2. ABDOMEN: Morbidly obese, pitting edema lower abdominal area., improved some EXTREMITIES: chronic swelling of the bilateral lower extremities, left greater than right mostly in thighs SKIN: No rash NEUROLOGIC: Nonfocal No garcia DIAGNOSIS/ASSESSMENT Assessment & Plan Anasarca- Cardiorenal On Lasix drip yesterday Also on Dobutamine and Metolazone ,Good UOP Strict I/O and accurate daily weight NURY -Cardiorenal, renal function improving On Lisinopril Hyperkalemia- Mild LE cellulitis- ID Has been on multiple ABx as per Pt Most Recent Bactrim prior to admission Morbid Obesity CM with EF of 15-20% Cardiology following Pulm Infiltrates- Pulm following ESR pending CT scan stable findings Hyperkalemia Severe KATIUSKA- Non compliant Chronic Anemia Discussed with Card and Pulm CAD COMMENT/RELEVANT DATA Meds Current Medications Medications (Trade) Dose Ordered Sig/Linden Start Time Stop Time Status Last Admin Dose Admin Acetaminophen (Tylenol) 650 mg PRN Q4HRS PRN 07/07/18 20:15 07/08/18 20:14 DC Acetaminophen/ Hydrocodone Bitart (Lortab 10/325) 1 tab PRN Q6HRS PRN 07/11/18 09:15 07/11/18 11:26 1 TAB Acetaminophen/ Hydrocodone Bitart (Lortab 5/325) 1 tab PRN Q4HRS PRN 07/09/18 10:30 07/11/18 09:12 DC 07/11/18 06:25 1 TAB Albuterol Sulfate (Ventolin Neb Soln) 2.5 mg RTQID 07/08/18 12:00 07/08/18 12:01 DC Albuterol/ Ipratropium (Duoneb) 3 ml RTQID 07/08/18 12:00 07/11/18 11:57 3 ML Aspirin (Ecotrin) 81 mg DAILYWBKFT 07/08/18 11:00 07/11/18 08:58 81 MG Atorvastatin Calcium (Lipitor) 5 mg QHS 07/08/18 21:00 07/10/18 20:48 5 MG Budesonide (Pulmicort) 0.5 mg 1X ONCE 07/10/18 10:15 07/10/18 10:31 DC 07/10/18 11:25 0.5 MG Bumetanide (Bumex) 1 mg DAILY 07/08/18 09:00 07/08/18 13:02 DC 07/08/18 09:06 1 MG Bupivacaine HCl (Sensorcaine-Mpf 0.25%) 10 ml 1X ONCE 07/10/18 09:15 07/10/18 09:21 DC 07/10/18 09:15 10 ML Bupropion HCl (Wellbutrin Xl) 300 mg DAILY 07/08/18 11:00 07/11/18 08:58 300 MG Carvedilol (Coreg) 6.25 mg BIDWMEALS 07/08/18 11:00 Cancel Cefepime HCl (Maxipime) 2 gm Q12HR 07/08/18 12:00 07/11/18 09:01 2 GM Cetirizine HCl (ZyrTEC) 10 mg DAILY 07/08/18 09:00 07/11/18 08:58 10 MG Clopidogrel Bisulfate (Plavix) 75 mg DAILY 07/08/18 09:00 07/11/18 08:58 75 MG Diclofenac Sodium (Voltaren) 1 chung BID 07/08/18 21:00 07/11/18 09:01 1 CHUNG Diphenhydramine HCl (Benadryl) 25 mg PRN Q6HRS PRN 07/08/18 20:00 07/11/18 11:26 25 MG Dobutamine HCl/ Dextrose 250 ml @ 32.318 mls/ hr CONT PRN 07/09/18 11:30 07/11/18 11:32 32.318 MLS/HR Enoxaparin Sodium (Lovenox 60mg Syringe) 60 mg Q12HR 07/10/18 12:00 07/11/18 09:03 60 MG Enoxaparin Sodium (Lovenox 80mg Syringe) 80 mg Q12HR 07/10/18 10:15 07/10/18 11:14 DC Famotidine (Pepcid) 20 mg HS 07/08/18 21:00 07/10/18 20:48 20 MG Fluconazole (Diflucan) 100 mg DAILY 07/08/18 12:00 07/11/18 08:58 100 MG Furosemide (Lasix) 40 mg Q6HRS 07/08/18 18:00 07/09/18 11:26 DC 07/09/18 06:17 40 MG Furosemide 100 mg/ Sodium Chloride 100 ml @ 5 mls/hr CONT PRN 07/09/18 11:15 07/11/18 02:33 5 MLS/HR Gabapentin (Neurontin) 300 mg HS 07/08/18 21:00 07/10/18 20:48 300 MG Insulin Glargine (Lantus) 80 units BID 07/08/18 21:00 07/10/18 20:50 40 UNITS Insulin Human Lispro (HumaLOG) 70 units TIDWMEALS 07/08/18 12:00 07/10/18 12:50 50 UNITS Lactobacillus Rhamnosus (Culturelle) 1 cap BID 07/08/18 21:00 07/11/18 08:59 1 CAP Linezolid (Zyvox) 600 mg BID 07/08/18 12:00 07/11/18 11:07 DC 07/11/18 09:20 600 MG Lisinopril (Prinivil) 20 mg DAILY 07/08/18 09:00 07/11/18 08:59 20 MG Lubiprostone (Amitiza) 8 mcg BIDWMEALS 07/10/18 14:00 07/10/18 20:00 DC 07/10/18 17:36 8 MCG Metformin HCl (Glucophage) 1,000 mg BIDWMEALS 07/08/18 08:00 07/11/18 08:59 1,000 MG Methylprednisolone Acetate (DEPO-Medrol 40MG VIAL) 40 mg 1X ONCE 07/10/18 09:15 07/10/18 09:21 DC 07/10/18 09:15 40 MG Metolazone (Zaroxolyn) 5 mg DAILY 07/08/18 14:00 07/11/18 08:59 5 MG Metronidazole (Flagyl) 500 mg Q12HR 07/08/18 12:00 07/11/18 11:07 DC 07/11/18 08:59 500 MG Montelukast Sodium (Singulair) 10 mg QHS 07/08/18 21:00 07/10/18 20:48 10 MG Morphine Sulfate (Morphine Sulfate) 4 mg PRN Q2HR PRN 07/07/18 20:15 07/08/18 20:14 DC 07/08/18 19:08 4 MG Nicotine (Nicoderm Cq 21mg) 1 patch DAILY 07/08/18 11:30 07/11/18 09:00 1 PATCH Non-Formulary Medication (Dexlansoprazole (Dexilant)) 1 cap DAILY 07/09/18 09:00 07/09/18 09:00 DC Non-Formulary Medication (Doxycycline Monohydrate ) 1 cap BID 07/08/18 09:00 UNV Non-Formulary Medication (Glycopyrrolate/ Formoterol Fum (Bevespi Aerosphere Inhaler)) 10.7 gm DAILY 07/09/18 09:00 07/10/18 10:43 DC Non-Formulary Medication (Linaclotide (Linzess)) 145 mcg DAILY07 07/11/18 07:00 Non-Formulary Medication (Metformin Hcl (Glucophage)) 1,000 mg BIDWMEALS 07/08/18 17:00 UNV Non-Formulary Medication (Montelukast Sodium (Singulair Tablet)) 10 mg HS 07/08/18 21:00 UNV Non-Formulary Medication (Pravastatin Sodium ) 1 tab QHS 07/08/18 21:00 UNV Ondansetron HCl (Zofran) 4 mg PRN Q6HRS PRN 07/08/18 11:15 07/08/18 19:26 4 MG Pantoprazole Sodium (Protonix) 40 mg DAILYAC 07/08/18 07:30 07/11/18 06:25 40 MG Trimethoprim/ Sulfamethoxazole (Bactrim Ds) 1 tab BID 07/08/18 09:00 UNV Vancomycin HCl (Vanco Per Pharmacy) 1 each PRN DAILY PRN 07/07/18 18:45 4/3/19 11:22 DC 07/07/18 21:02 1 EACH Vancomycin HCl (Vancomycin Trough Level) 1 each 1X ONCE 07/08/18 18:30 07/08/18 18:30 DC Vancomycin HCl 1.75 gm/Sodium Chloride 500 ml @ 250 mls/hr Q8H 07/08/18 03:00 07/08/18 11:22 DC 07/08/18 03:22 250 MLS/HR Vancomycin HCl 2 gm/Sodium Chloride 500 ml @ 250 mls/hr 1X ONCE 07/07/18 19:00 07/07/18 20:59 DC 07/07/18 18:54 250 MLS/HR Zolpidem Tartrate (Ambien) 5 mg PRN QHS PRN 07/10/18 18:15 Lab Laboratory Tests Test 07/10/18 17:25 07/10/18 20:42 07/11/18 03:33 07/11/18 06:59 Glucose (Fingerstick) 80 mg/dL (70-99) 102 mg/dL (70-99) 119 mg/dL (70-99) White Blood Count 7.0 x10^3/uL (4.0-11.0) Red Blood Count 4.01 x10^6/uL (4.30-5.70) Hemoglobin 9.7 g/dL (13.0-17.5) Hematocrit 32.0 % (39.0-53.0) Mean Corpuscular Volume 80 fL (79-100) Mean Corpuscular Hemoglobin 24 pg (25-35) Mean Corpuscular Hemoglobin Concent 30 g/dL (31-37) Red Cell Distribution Width 20.9 % (11.5-14.5) Platelet Count 265 x10^3/uL (140-400) Neutrophils (%) (Auto) 61 % (31-73) Lymphocytes (%) (Auto) 15 % (24-48) Monocytes (%) (Auto) 16 % (0-9) Eosinophils (%) (Auto) 8 % (0-3) Basophils (%) (Auto) 1 % (0-3) Neutrophils # (Auto) 4.2 x10^3uL (1.8-7.7) Lymphocytes # (Auto) 1.1 x10^3/uL (1.0-4.8) Monocytes # (Auto) 1.1 x10^3/uL (0.0-1.1) Eosinophils # (Auto) 0.6 x10^3/uL (0.0-0.7) Basophils # (Auto) 0.0 x10^3/uL (0.0-0.2) Sodium Level 140 mmol/L (136-145) Potassium Level 5.1 mmol/L (3.5-5.1) Chloride Level 105 mmol/L (98-107) Carbon Dioxide Level 26 mmol/L (21-32) Anion Gap 9 (6-14) Blood Urea Nitrogen 36 mg/dL (8-26) Creatinine 1.6 mg/dL (0.7-1.3) Estimated GFR (Cockcroft-Gault) 56.6 Glucose Level 97 mg/dL (70-99) Calcium Level 8.8 mg/dL (8.5-10.1) Magnesium Level 2.1 mg/dL (1.8-2.4) Test 07/11/18 11:04 Glucose (Fingerstick) 106 mg/dL (70-99) Results All relevant outside records, renal labs, imaging studies, telemetry/EKG's were reviewed. GILMA GARCES MD Jul 11, 2018 14:40
[2018-07-11 14:59] VITALS: BP 143/79
[2018-07-11 19:10] VITALS: BP 150/76
[2018-07-11] MEDS: GABAPENTIN 300 MG CAPSULE. PO SCH (20:32)
[2018-07-11] MEDS: FAMOTIDINE 20 MG TABLET. PO SCH (20:32)
[2018-07-11] MEDS: MONTELUKAST SODIUM 10 MG TABLET. PO SCH (20:32)
[2018-07-11] MEDS: ATORVASTATIN CALCIUM 10 MG TABLET. PO SCH (20:33)
[2018-07-11] MEDS: ZOLPIDEM 5 MG TABLET. PO PRN (23:10)
[2018-07-11 23:44] VITALS: BP 145/89
[2018-07-12] MEDS: diphenhydrAMINE HCL 25 MG CAPSULE PO PRN (03:31)
[2018-07-12] MEDS: HYDROcodone/APAP 10/325 1 TAB TABLET PO PRN (03:31)
[2018-07-12 03:54] VITALS: BP 153/78
[2018-07-12 04:57] LABS: BASO # 0.1 x10^3/uL (0.0-0.2); BASO % 1 % (0-3); EOS # 0.5 x10^3/uL (0.0-0.7); EOS % 8 % (0-3); HEMATOCRIT 32.1 % (39.0-53.0); HEMOGLOBIN 9.7 g/dL (13.0-17.5); LYMPH # 1.1 x10^3/uL (1.0-4.8); LYMPH % 16 % (24-48); MEAN CORPUSCULAR HEMOGLOBIN 24 pg (25-35); MEAN CORPUSCULAR HGB CONC 30 g/dL (31-37); MEAN CORPUSCULAR VOLUME 79 fL (79-100); MONO # 1.2 x10^3/uL (0.0-1.1); MONO % 18 % (0-9); NEUT # 3.9 x10^3uL (1.8-7.7); NEUT % 58 % (31-73); PLATELET COUNT 259 x10^3/uL (140-400); RED BLOOD COUNT 4.06 x10^6/uL (4.30-5.70); RED CELL DISTRIBUTION WIDTH 20.8 % (11.5-14.5); WHITE BLOOD COUNT 6.7 x10^3/uL (4.0-11.0)
[2018-07-12 05:17] LABS: CREATININE 1.4 mg/dL (0.7-1.3); POTASSIUM 5.1 mmol/L (3.5-5.1)
[2018-07-12] MEDS: PANTOPRAZOLE 40 MG TABLET.DR. PO SCH (06:17)
[2018-07-12 07:31] VITALS: BP 139/66
[2018-07-12] MEDS: IPRATRPIUM/ALBUTEROL 0.5/2.5MG 3 ML NEBU. NEB SCH ×4 (07:51→20:32)
[2018-07-12] MEDS: BUDESONIDE 0.5 MG/2 ML NEBU. NEB SCH ×2 (07:51→20:32)
[2018-07-12] MEDS: INSULIN LISPRO 300 UNITS/3 ML INSULN.PEN. SQ SCH ×3 (08:00→17:00)
[2018-07-12] MEDS: FLUCONAZOLE 100 MG TABLET. PO SCH (08:31)
[2018-07-12] MEDS: DICLOFENAC SODIUM 1% TOPICAL GEL 100GM TUBE. TP SCH ×2 (08:31→20:41)
[2018-07-12] MEDS: NICOTINE 21MG PATCH. TD SCH (08:31)
[2018-07-12] MEDS: CEFEPIME HCL IV Push 2 GM VIAL. IVP SCH ×2 (08:32→20:42)
[2018-07-12] MEDS: LACTOBACILLUS RHAMNOSUS GG 1 CAPSULE. PO SCH ×2 (08:32→20:28)
[2018-07-12] MEDS: CETIRIZINE HCL 10 MG TABLET. PO SCH (08:32)
[2018-07-12] MEDS: CLOPIDOGREL BISULFATE 75 MG TABLET PO SCH (08:32)
[2018-07-12] MEDS: buPROPion XL 150 MG TAB.ER.24H. PO SCH (08:33)
[2018-07-12] MEDS: LISINOPRIL 20 MG TABLET PO SCH (08:33)
[2018-07-12] MEDS: ASPIRIN ENTERIC COATED 81 MG TABLET.DR. PO SCH (08:33)
[2018-07-12] MEDS: CARVEDILOL 6.25 MG TABLET. PO SCH ×2 (08:33→18:15)
[2018-07-12] MEDS: metOLazone 2.5 MG TABLET PO SCH (08:34)
--- NOTE | 2018-07-12 09:26 | PDOC ---
Infectious Disease Note Subjective Subjective Trying to get up and move around more No F/C/S/N/V/D/pain ROS ROS per HPI Vital Sign Vital Signs Vital Signs Date Time Temp Pulse Resp B/P (MAP) Pulse Ox O2 Delivery O2 Flow Rate FiO2 07/12/18 08:33 96 139/66 07/12/18 07:53 91 Room Air 07/12/18 07:31 97.8 20 97.8 07/11/18 20:14 4.0 Physical Exam PHYSICAL EXAM GENERAL: Sitting in hte chair, alert, relaxed appearance HEENT: Pupils equal and reactive. Oral cavity, pharynx is clear. NECK: Supple. LUNGS: Clear to auscultation. HEART: S1, S2. ABDOMEN: Morbidly obese, soft, no guarding, no rebound. He has got some pitting thickness of his lower extremity abdominal area EXTREMITIES: No clubbing, cyanosis. Chronic swelling of the bilateral lower extremities, left greater than right and also had some fullness and thickening of groin tissue of his left thigh. SKIN: Otherwise warm to touch without signs of rash. NEUROLOGIC: Nonfocal and appropriate. PIV Labs Lab Laboratory Tests Test 07/11/18 11:04 07/11/18 16:39 07/11/18 20:37 07/12/18 04:30 Glucose (Fingerstick) 106 mg/dL (70-99) 130 mg/dL (70-99) 111 mg/dL (70-99) White Blood Count 6.7 x10^3/uL (4.0-11.0) Red Blood Count 4.06 x10^6/uL (4.30-5.70) Hemoglobin 9.7 g/dL (13.0-17.5) Hematocrit 32.1 % (39.0-53.0) Mean Corpuscular Volume 79 fL (79-100) Mean Corpuscular Hemoglobin 24 pg (25-35) Mean Corpuscular Hemoglobin Concent 30 g/dL (31-37) Red Cell Distribution Width 20.8 % (11.5-14.5) Platelet Count 259 x10^3/uL (140-400) Neutrophils (%) (Auto) 58 % (31-73) Lymphocytes (%) (Auto) 16 % (24-48) Monocytes (%) (Auto) 18 % (0-9) Eosinophils (%) (Auto) 8 % (0-3) Basophils (%) (Auto) 1 % (0-3) Neutrophils # (Auto) 3.9 x10^3uL (1.8-7.7) Lymphocytes # (Auto) 1.1 x10^3/uL (1.0-4.8) Monocytes # (Auto) 1.2 x10^3/uL (0.0-1.1) Eosinophils # (Auto) 0.5 x10^3/uL (0.0-0.7) Basophils # (Auto) 0.1 x10^3/uL (0.0-0.2) Sodium Level 139 mmol/L (136-145) Potassium Level 5.1 mmol/L (3.5-5.1) Chloride Level 102 mmol/L (98-107) Carbon Dioxide Level 29 mmol/L (21-32) Anion Gap 8 (6-14) Blood Urea Nitrogen 29 mg/dL (8-26) Creatinine 1.4 mg/dL (0.7-1.3) Estimated GFR (Cockcroft-Gault) 66.0 Glucose Level 150 mg/dL (70-99) Calcium Level 9.0 mg/dL (8.5-10.1) Test 07/12/18 07:14 Glucose (Fingerstick) 142 mg/dL (70-99) Micro 07/07/18 Blood Culture - Preliminary, Resulted NO GROWTH AFTER 4 DAYS Objective Assessment ? Left upper thigh cellulitis/yeast vs fluid retention - normal Procalcitonin NURY - stable Fluid overload Augmentin allergy - rash Morbid Obesity DM Plan Plan of Care Cont Cefepime and Fluconazole off Zyvox and Flagyl Probiotics Diuresis BC NGTD Attending Co-Sign The patient was seen and interviewed as well as examined at the bedside. The chart was reviewed. The case was discussed. Agree with the plan of care. DELFIN MCCRAY APRN Jul 12, 2018 09:26 CUCO TRENT MD Jul 12, 2018 09:45
--- NOTE | 2018-07-12 10:25 | PDOC ---
PROGRESS NOTES Subjective Subjective muscle spasms Objective Objective Vital Signs Date Time Temp Pulse Resp B/P (MAP) Pulse Ox O2 Delivery O2 Flow Rate FiO2 07/12/18 08:33 96 139/66 07/12/18 08:00 Nasal Cannula 3.0 07/12/18 07:53 91 07/12/18 07:31 97.8 20 97.8 Intake and Output 07/12/18 07:00 Intake Total 3650.63 ml Output Total 5350 ml Balance -1699.37 ml Intake Oral 2060 ml IV Total 1590.63 ml Output Urine Total 5350 ml Physical Exam Abdomen: Normal bowel sounds, Soft, No tenderness Heart: Regular rate, Normal S1, Normal S2 Extremities: No clubbing, Other (2-4+ EDEMA) General: Alert, Oriented X3, Cooperative, No acute distress HEENT: Atraumatic, PERRLA, EOMI, Mucous membr. moist/pink Lungs: Clear to auscultation MUSCULOSKELETAL: No joint tenderness, No deformity Neuro: Normal speech Psych/Mental Status: Mental status NL, Mood NL Skin: No breakdown, Other (STASIS DISCOLOARATION BILATERALLY AND ERYTHEMA BILATERALLY IN LE) COMMENT abd wall edema Diagnosis Problem List Problems Medical Problems: (1) Bilateral lower leg cellulitis Status: Acute Assessment Assessment Problems Medical Problems: (1) Bilateral lower leg cellulitis Status: Acute IMPRESSION: 1. Possible cellulitis of the lower extremities. 2. Chronic edema of both lower extremities and lymphedema. 3. 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 4. Respiratory failure, hypoxic. 5. Morbid obesity. 6. Obstructive sleep apnea, CPAP, noncompliant. 7. Diabetes mellitus type 2, insulin-dependent, noncompliant. 8. Chronic obstructive pulmonary disease. 9. Hyperkalemia. 10. Slow transit constipation. 11. Osteoarthritis of both knees. 12. Physical deconditioning. 13. History of right lower lung nodule. 14. Gastroesophageal reflux disease with esophagitis. 15. Mixed hyperlipidemia. 16. Noncompliance. 17. Anemia of chronic disease. 18. Coronary artery disease with 2-vessel coronary artery disease status post drug-eluting stent of the right coronary artery on 04/03/2017. PLAN: inc nurointin 300 po tid tizanidine for muscle spasm. iv lasix drip+ dobutamine drip cr 1.3, stable and improving echo 15%. renal consult. monitor kidney function morbid obesity. rehab consult appreciated spoke with ID streamline antibiotics fluid restriction Plan Plan of Care Problems Medical Problems: (1) Bilateral lower leg cellulitis Status: Acute Comment Review of Relevant I have reviewed the following items mukund (where applicable) has been applied. Labs Laboratory Tests Test 07/11/18 11:04 07/11/18 16:39 07/11/18 20:37 07/12/18 04:30 Glucose (Fingerstick) 106 mg/dL (70-99) 130 mg/dL (70-99) 111 mg/dL (70-99) White Blood Count 6.7 x10^3/uL (4.0-11.0) Red Blood Count 4.06 x10^6/uL (4.30-5.70) Hemoglobin 9.7 g/dL (13.0-17.5) Hematocrit 32.1 % (39.0-53.0) Mean Corpuscular Volume 79 fL (79-100) Mean Corpuscular Hemoglobin 24 pg (25-35) Mean Corpuscular Hemoglobin Concent 30 g/dL (31-37) Red Cell Distribution Width 20.8 % (11.5-14.5) Platelet Count 259 x10^3/uL (140-400) Neutrophils (%) (Auto) 58 % (31-73) Lymphocytes (%) (Auto) 16 % (24-48) Monocytes (%) (Auto) 18 % (0-9) Eosinophils (%) (Auto) 8 % (0-3) Basophils (%) (Auto) 1 % (0-3) Neutrophils # (Auto) 3.9 x10^3uL (1.8-7.7) Lymphocytes # (Auto) 1.1 x10^3/uL (1.0-4.8) Monocytes # (Auto) 1.2 x10^3/uL (0.0-1.1) Eosinophils # (Auto) 0.5 x10^3/uL (0.0-0.7) Basophils # (Auto) 0.1 x10^3/uL (0.0-0.2) Sodium Level 139 mmol/L (136-145) Potassium Level 5.1 mmol/L (3.5-5.1) Chloride Level 102 mmol/L (98-107) Carbon Dioxide Level 29 mmol/L (21-32) Anion Gap 8 (6-14) Blood Urea Nitrogen 29 mg/dL (8-26) Creatinine 1.4 mg/dL (0.7-1.3) Estimated GFR (Cockcroft-Gault) 66.0 Glucose Level 150 mg/dL (70-99) Calcium Level 9.0 mg/dL (8.5-10.1) Test 07/12/18 07:14 Glucose (Fingerstick) 142 mg/dL (70-99) Microbiology 07/07/18 Blood Culture - Preliminary, Resulted NO GROWTH AFTER 4 DAYS Medications Current Medications Gabapentin (Neurontin) 300 mg TID PO ; Start 07/12/18 at 10:30 Tizanidine HCl (Zanaflex) 4 mg PRN Q8HRS PRN PO MUSCLE SPASMS; Start 07/12/18 at 10:30 Vitals/I & O Vital Sign - Last 24 Hours 07/11/18 07/11/18 07/11/18 07/11/18 11:26 11:33 11:57 14:59 Temp 97.5 97.7 97.5 97.7 Pulse 89 84 Resp 20 20 B/P (MAP) 123/66 (85) 143/79 (100) Pulse Ox 93 98 94 O2 Delivery Room Air Room Air Nasal Cannula Room Air O2 Flow Rate 3.0 2.0 07/11/18 07/11/18 07/11/18 07/11/18 15:36 17:55 18:19 19:10 Temp 97.7 97.7 Pulse 93 95 Resp 21 B/P (MAP) 151/68 150/76 (100) Pulse Ox 98 98 96 O2 Delivery Nasal Cannula Room Air Room Air O2 Flow Rate 4.0 4.0 07/11/18 07/11/18 07/11/18 07/11/18 19:19 19:50 20:14 23:44 Temp 97.7 97.7 Pulse 91 Resp 22 B/P (MAP) 145/89 (107) Pulse Ox 98 98 98 O2 Delivery Nasal Cannula Nasal Cannula Room Air O2 Flow Rate 4.0 3.0 4.0 07/12/18 07/12/18 07/12/18 07/12/18 03:00 03:31 03:54 04:31 Temp 97.6 97.6 Pulse 98 Resp 16 22 16 B/P (MAP) 153/78 (103) Pulse Ox 96 99 O2 Delivery BiPAP/CPAP Room Air Room Air Room Air 07/12/18 07/12/18 07/12/18 07/12/18 07:31 07:53 08:00 08:33 Temp 97.8 97.8 Pulse 96 96 Resp 20 B/P (MAP) 139/66 (90) 139/66 Pulse Ox 97 91 O2 Delivery Room Air Room Air Nasal Cannula O2 Flow Rate 3.0 07/12/18 08:33 Pulse 96 B/P (MAP) 139/66 Intake and Output 07/11/18 07/11/18 07/12/18 15:00 23:00 07:00 Intake Total 440 ml 1020 ml 2190.63 ml Output Total 1050 ml 1650 ml 2650 ml Balance -610 ml -630 ml -459.37 ml ARYA SAENZ MD Jul 12, 2018 10:25
[2018-07-12] MEDS: GABAPENTIN 300 MG CAPSULE. PO SCH ×3 (10:56→20:29)
[2018-07-12 11:38] VITALS: BP 151/76
[2018-07-12] MEDS: INSULIN GLARGINE 300 UNITS/3 ML INSULN.PEN. SQ SCH ×2 (12:25→20:40)
--- NOTE | 2018-07-12 14:16 | PDOC ---
SUBJECTIVE ROS No new complaints, OBJECTIVE Vital Signs Vital Signs Date Time Temp Pulse Resp B/P (MAP) Pulse Ox O2 Delivery O2 Flow Rate FiO2 07/12/18 11:44 91 Room Air 07/12/18 11:38 97.4 91 20 151/76 (101) 97.4 07/12/18 08:00 3.0 I & 0 Intake and Output 07/12/18 07:00 Intake Total 3650.63 ml Output Total 5350 ml Balance -1699.37 ml Intake Oral 2060 ml IV Total 1590.63 ml Output Urine Total 5350 ml PHYSICAL EXAM Physical Exam Gen: NAD, sitting up eating Lunch HEENT: OM moist , On RA NECK: Supple. LUNGS: Clear to auscultation. HEART: S1, S2. ABDOMEN: Morbidly obese, pitting edema lower abdominal area., improved some EXTREMITIES: chronic swelling of the bilateral lower extremities, left greater than right mostly in thighs SKIN: No rash NEUROLOGIC: Nonfocal No garcia DIAGNOSIS/ASSESSMENT Assessment & Plan Anasarca- Cardiorenal On Lasix drip , Dobutamine and Metolazone , Strict I/O and accurate daily weight NURY -Cardiorenal, renal function improving Hyperkalemia- resolved LE cellulitis- ID Has been on multiple ABx as per Pt Most Recent Bactrim prior to admission Morbid Obesity CM with EF of 15-20% Cardiology following Pulm Infiltrates- Pulm following ESR pending CT scan stable findings Hyperkalemia Severe KATIUSKA- Non compliant Chronic Anemia Discussed with Card and Pulm CAD COMMENT/RELEVANT DATA Meds Current Medications Medications (Trade) Dose Ordered Sig/Linden Start Time Stop Time Status Last Admin Dose Admin Acetaminophen (Tylenol) 650 mg PRN Q4HRS PRN 07/07/18 20:15 07/08/18 20:14 DC Acetaminophen/ Hydrocodone Bitart (Lortab 10/325) 1 tab PRN Q6HRS PRN 07/11/18 09:15 07/12/18 03:31 1 TAB Acetaminophen/ Hydrocodone Bitart (Lortab 5/325) 1 tab PRN Q4HRS PRN 07/09/18 10:30 07/11/18 09:12 DC 07/11/18 06:25 1 TAB Albuterol Sulfate (Ventolin Neb Soln) 2.5 mg RTQID 07/08/18 12:00 07/08/18 12:01 DC Albuterol/ Ipratropium (Duoneb) 3 ml RTQID 07/08/18 12:00 07/12/18 11:43 3 ML Aspirin (Ecotrin) 81 mg DAILYWBKFT 07/08/18 11:00 07/12/18 08:33 81 MG Atorvastatin Calcium (Lipitor) 5 mg QHS 07/08/18 21:00 07/11/18 20:33 5 MG Budesonide (Pulmicort) 0.5 mg 1X ONCE 07/10/18 10:15 07/10/18 10:31 DC 07/10/18 11:25 0.5 MG Bumetanide (Bumex) 1 mg DAILY 07/08/18 09:00 07/08/18 13:02 DC 07/08/18 09:06 1 MG Bupivacaine HCl (Sensorcaine-Mpf 0.25%) 10 ml 1X ONCE 07/10/18 09:15 07/10/18 09:21 DC 07/10/18 09:15 10 ML Bupropion HCl (Wellbutrin Xl) 300 mg DAILY 07/08/18 11:00 07/12/18 08:33 300 MG Carvedilol (Coreg) 6.25 mg BIDWMEALS 07/08/18 11:00 Cancel Cefepime HCl (Maxipime) 2 gm Q12HR 07/08/18 12:00 07/12/18 08:32 2 GM Cetirizine HCl (ZyrTEC) 10 mg DAILY 07/08/18 09:00 07/12/18 08:32 10 MG Clopidogrel Bisulfate (Plavix) 75 mg DAILY 07/08/18 09:00 07/12/18 08:32 75 MG Diclofenac Sodium (Voltaren) 1 chung BID 07/08/18 21:00 07/12/18 08:31 1 CHUNG Diphenhydramine HCl (Benadryl) 25 mg PRN Q6HRS PRN 07/08/18 20:00 07/12/18 03:31 25 MG Dobutamine HCl/ Dextrose 250 ml @ 32.318 mls/ hr CONT PRN 07/09/18 11:30 07/12/18 06:06 32.318 MLS/HR Enoxaparin Sodium (Lovenox 60mg Syringe) 60 mg Q12HR 07/10/18 12:00 07/12/18 08:32 60 MG Enoxaparin Sodium (Lovenox 80mg Syringe) 80 mg Q12HR 07/10/18 10:15 07/10/18 11:14 DC Famotidine (Pepcid) 20 mg HS 07/08/18 21:00 07/11/18 20:32 20 MG Fluconazole (Diflucan) 100 mg DAILY 07/08/18 12:00 07/12/18 08:31 100 MG Furosemide (Lasix) 40 mg Q6HRS 07/08/18 18:00 07/09/18 11:26 DC 07/09/18 06:17 40 MG Furosemide 100 mg/ Sodium Chloride 100 ml @ 5 mls/hr CONT PRN 07/09/18 11:15 07/12/18 00:00 5 MLS/HR Gabapentin (Neurontin) 300 mg TID 07/12/18 10:30 07/12/18 10:56 300 MG Insulin Glargine (Lantus) 80 units BID 07/08/18 21:00 07/12/18 12:25 80 UNITS Insulin Human Lispro (HumaLOG) 70 units TIDWMEALS 07/08/18 12:00 07/12/18 12:26 60 UNITS Lactobacillus Rhamnosus (Culturelle) 1 cap BID 07/08/18 21:00 07/12/18 08:32 1 CAP Linezolid (Zyvox) 600 mg BID 07/08/18 12:00 07/11/18 11:07 DC 07/11/18 09:20 600 MG Lisinopril (Prinivil) 20 mg DAILY 07/08/18 09:00 07/12/18 08:33 20 MG Lubiprostone (Amitiza) 8 mcg BIDWMEALS 07/10/18 14:00 07/10/18 20:00 DC 07/10/18 17:36 8 MCG Metformin HCl (Glucophage) 1,000 mg BIDWMEALS 07/08/18 08:00 07/11/18 19:12 DC 07/11/18 08:59 1,000 MG Methylprednisolone Acetate (DEPO-Medrol 40MG VIAL) 40 mg 1X ONCE 07/10/18 09:15 07/10/18 09:21 DC 07/10/18 09:15 40 MG Metolazone (Zaroxolyn) 5 mg DAILY 07/08/18 14:00 07/12/18 08:34 5 MG Metronidazole (Flagyl) 500 mg Q12HR 07/08/18 12:00 07/11/18 11:07 DC 07/11/18 08:59 500 MG Montelukast Sodium (Singulair) 10 mg QHS 07/08/18 21:00 07/11/18 20:32 10 MG Morphine Sulfate (Morphine Sulfate) 4 mg PRN Q2HR PRN 07/07/18 20:15 07/08/18 20:14 DC 07/08/18 19:08 4 MG Nicotine (Nicoderm Cq 21mg) 1 patch DAILY 07/08/18 11:30 07/12/18 08:31 1 PATCH Non-Formulary Medication (Dexlansoprazole (Dexilant)) 1 cap DAILY 07/09/18 09:00 07/09/18 09:00 DC Non-Formulary Medication (Doxycycline Monohydrate ) 1 cap BID 07/08/18 09:00 UNV Non-Formulary Medication (Glycopyrrolate/ Formoterol Fum (Bevespi Aerosphere Inhaler)) 10.7 gm DAILY 07/09/18 09:00 07/10/18 10:43 DC Non-Formulary Medication (Linaclotide (Linzess)) 145 mcg DAILY07 07/11/18 07:00 Non-Formulary Medication (Metformin Hcl (Glucophage)) 1,000 mg BIDWMEALS 07/08/18 17:00 UNV Non-Formulary Medication (Montelukast Sodium (Singulair Tablet)) 10 mg HS 07/08/18 21:00 UNV Non-Formulary Medication (Pravastatin Sodium ) 1 tab QHS 07/08/18 21:00 UNV Ondansetron HCl (Zofran) 4 mg PRN Q6HRS PRN 07/08/18 11:15 07/08/18 19:26 4 MG Pantoprazole Sodium (Protonix) 40 mg DAILYAC 07/08/18 07:30 07/12/18 06:17 40 MG Tizanidine HCl (Zanaflex) 4 mg PRN Q8HRS PRN 07/12/18 10:30 Trimethoprim/ Sulfamethoxazole (Bactrim Ds) 1 tab BID 07/08/18 09:00 UNV Vancomycin HCl (Vanco Per Pharmacy) 1 each PRN DAILY PRN 07/07/18 18:45 07/08/18 11:22 DC 07/07/18 21:02 1 EACH Vancomycin HCl (Vancomycin Trough Level) 1 each 1X ONCE 07/08/18 18:30 07/08/18 18:30 DC Vancomycin HCl 1.75 gm/Sodium Chloride 500 ml @ 250 mls/hr Q8H 07/08/18 03:00 07/08/18 11:22 DC 07/08/18 03:22 250 MLS/HR Vancomycin HCl 2 gm/Sodium Chloride 500 ml @ 250 mls/hr 1X ONCE 07/07/18 19:00 07/07/18 20:59 DC 07/07/18 18:54 250 MLS/HR Zolpidem Tartrate (Ambien) 5 mg PRN QHS PRN 07/10/18 18:15 07/11/18 23:10 5 MG Lab Laboratory Tests Test 07/11/18 16:39 07/11/18 20:37 07/12/18 04:30 07/12/18 07:14 Glucose (Fingerstick) 130 mg/dL (70-99) 111 mg/dL (70-99) 142 mg/dL (70-99) White Blood Count 6.7 x10^3/uL (4.0-11.0) Red Blood Count 4.06 x10^6/uL (4.30-5.70) Hemoglobin 9.7 g/dL (13.0-17.5) Hematocrit 32.1 % (39.0-53.0) Mean Corpuscular Volume 79 fL (79-100) Mean Corpuscular Hemoglobin 24 pg (25-35) Mean Corpuscular Hemoglobin Concent 30 g/dL (31-37) Red Cell Distribution Width 20.8 % (11.5-14.5) Platelet Count 259 x10^3/uL (140-400) Neutrophils (%) (Auto) 58 % (31-73) Lymphocytes (%) (Auto) 16 % (24-48) Monocytes (%) (Auto) 18 % (0-9) Eosinophils (%) (Auto) 8 % (0-3) Basophils (%) (Auto) 1 % (0-3) Neutrophils # (Auto) 3.9 x10^3uL (1.8-7.7) Lymphocytes # (Auto) 1.1 x10^3/uL (1.0-4.8) Monocytes # (Auto) 1.2 x10^3/uL (0.0-1.1) Eosinophils # (Auto) 0.5 x10^3/uL (0.0-0.7) Basophils # (Auto) 0.1 x10^3/uL (0.0-0.2) Sodium Level 139 mmol/L (136-145) Potassium Level 5.1 mmol/L (3.5-5.1) Chloride Level 102 mmol/L (98-107) Carbon Dioxide Level 29 mmol/L (21-32) Anion Gap 8 (6-14) Blood Urea Nitrogen 29 mg/dL (8-26) Creatinine 1.4 mg/dL (0.7-1.3) Estimated GFR (Cockcroft-Gault) 66.0 Glucose Level 150 mg/dL (70-99) Calcium Level 9.0 mg/dL (8.5-10.1) Test 07/12/18 11:16 Glucose (Fingerstick) 185 mg/dL (70-99) Results All relevant outside records, renal labs, imaging studies, telemetry/EKG's were reviewed. GILMA GARCES MD Jul 12, 2018 14:16
[2018-07-12 14:48] VITALS: BP 129/71
--- NOTE | 2018-07-12 14:55 | PDOC ---
PULMONARY PROGRESS NOTES Subjective sob better, no cough, no pain Vitals Vital Signs Date Time Temp Pulse Resp B/P (MAP) Pulse Ox O2 Delivery O2 Flow Rate FiO2 07/12/18 14:48 97.5 99 22 129/71 (90) 91 Room Air 97.5 07/12/18 08:00 3.0 General: Alert, No acute distress HEENT: Other (nc at perrl ) Lungs: Other (decrease bases) Cardiovascular: S1, S2 Abdomen: Soft, Non-tender, Other (morbidly obese) Extremities: Other (2+edema) Skin: Warm Labs Laboratory Tests Test 07/10/18 17:25 07/10/18 20:42 07/11/18 03:33 07/11/18 06:59 Glucose (Fingerstick) 80 mg/dL (70-99) 102 mg/dL (70-99) 119 mg/dL (70-99) White Blood Count 7.0 x10^3/uL (4.0-11.0) Red Blood Count 4.01 x10^6/uL (4.30-5.70) Hemoglobin 9.7 g/dL (13.0-17.5) Hematocrit 32.0 % (39.0-53.0) Mean Corpuscular Volume 80 fL (79-100) Mean Corpuscular Hemoglobin 24 pg (25-35) Mean Corpuscular Hemoglobin Concent 30 g/dL (31-37) Red Cell Distribution Width 20.9 % (11.5-14.5) Platelet Count 265 x10^3/uL (140-400) Neutrophils (%) (Auto) 61 % (31-73) Lymphocytes (%) (Auto) 15 % (24-48) Monocytes (%) (Auto) 16 % (0-9) Eosinophils (%) (Auto) 8 % (0-3) Basophils (%) (Auto) 1 % (0-3) Neutrophils # (Auto) 4.2 x10^3uL (1.8-7.7) Lymphocytes # (Auto) 1.1 x10^3/uL (1.0-4.8) Monocytes # (Auto) 1.1 x10^3/uL (0.0-1.1) Eosinophils # (Auto) 0.6 x10^3/uL (0.0-0.7) Basophils # (Auto) 0.0 x10^3/uL (0.0-0.2) Sodium Level 140 mmol/L (136-145) Potassium Level 5.1 mmol/L (3.5-5.1) Chloride Level 105 mmol/L (98-107) Carbon Dioxide Level 26 mmol/L (21-32) Anion Gap 9 (6-14) Blood Urea Nitrogen 36 mg/dL (8-26) Creatinine 1.6 mg/dL (0.7-1.3) Estimated GFR (Cockcroft-Gault) 56.6 Glucose Level 97 mg/dL (70-99) Calcium Level 8.8 mg/dL (8.5-10.1) Magnesium Level 2.1 mg/dL (1.8-2.4) Test 07/11/18 11:04 07/11/18 16:39 07/11/18 20:37 07/12/18 04:30 Glucose (Fingerstick) 106 mg/dL (70-99) 130 mg/dL (70-99) 111 mg/dL (70-99) White Blood Count 6.7 x10^3/uL (4.0-11.0) Red Blood Count 4.06 x10^6/uL (4.30-5.70) Hemoglobin 9.7 g/dL (13.0-17.5) Hematocrit 32.1 % (39.0-53.0) Mean Corpuscular Volume 79 fL (79-100) Mean Corpuscular Hemoglobin 24 pg (25-35) Mean Corpuscular Hemoglobin Concent 30 g/dL (31-37) Red Cell Distribution Width 20.8 % (11.5-14.5) Platelet Count 259 x10^3/uL (140-400) Neutrophils (%) (Auto) 58 % (31-73) Lymphocytes (%) (Auto) 16 % (24-48) Monocytes (%) (Auto) 18 % (0-9) Eosinophils (%) (Auto) 8 % (0-3) Basophils (%) (Auto) 1 % (0-3) Neutrophils # (Auto) 3.9 x10^3uL (1.8-7.7) Lymphocytes # (Auto) 1.1 x10^3/uL (1.0-4.8) Monocytes # (Auto) 1.2 x10^3/uL (0.0-1.1) Eosinophils # (Auto) 0.5 x10^3/uL (0.0-0.7) Basophils # (Auto) 0.1 x10^3/uL (0.0-0.2) Sodium Level 139 mmol/L (136-145) Potassium Level 5.1 mmol/L (3.5-5.1) Chloride Level 102 mmol/L (98-107) Carbon Dioxide Level 29 mmol/L (21-32) Anion Gap 8 (6-14) Blood Urea Nitrogen 29 mg/dL (8-26) Creatinine 1.4 mg/dL (0.7-1.3) Estimated GFR (Cockcroft-Gault) 66.0 Glucose Level 150 mg/dL (70-99) Calcium Level 9.0 mg/dL (8.5-10.1) Test 07/12/18 07:14 07/12/18 11:16 Glucose (Fingerstick) 142 mg/dL (70-99) 185 mg/dL (70-99) Laboratory Tests Test 07/11/18 16:39 07/11/18 20:37 07/12/18 04:30 07/12/18 07:14 Glucose (Fingerstick) 130 mg/dL (70-99) 111 mg/dL (70-99) 142 mg/dL (70-99) White Blood Count 6.7 x10^3/uL (4.0-11.0) Red Blood Count 4.06 x10^6/uL (4.30-5.70) Hemoglobin 9.7 g/dL (13.0-17.5) Hematocrit 32.1 % (39.0-53.0) Mean Corpuscular Volume 79 fL (79-100) Mean Corpuscular Hemoglobin 24 pg (25-35) Mean Corpuscular Hemoglobin Concent 30 g/dL (31-37) Red Cell Distribution Width 20.8 % (11.5-14.5) Platelet Count 259 x10^3/uL (140-400) Neutrophils (%) (Auto) 58 % (31-73) Lymphocytes (%) (Auto) 16 % (24-48) Monocytes (%) (Auto) 18 % (0-9) Eosinophils (%) (Auto) 8 % (0-3) Basophils (%) (Auto) 1 % (0-3) Neutrophils # (Auto) 3.9 x10^3uL (1.8-7.7) Lymphocytes # (Auto) 1.1 x10^3/uL (1.0-4.8) Monocytes # (Auto) 1.2 x10^3/uL (0.0-1.1) Eosinophils # (Auto) 0.5 x10^3/uL (0.0-0.7) Basophils # (Auto) 0.1 x10^3/uL (0.0-0.2) Sodium Level 139 mmol/L (136-145) Potassium Level 5.1 mmol/L (3.5-5.1) Chloride Level 102 mmol/L (98-107) Carbon Dioxide Level 29 mmol/L (21-32) Anion Gap 8 (6-14) Blood Urea Nitrogen 29 mg/dL (8-26) Creatinine 1.4 mg/dL (0.7-1.3) Estimated GFR (Cockcroft-Gault) 66.0 Glucose Level 150 mg/dL (70-99) Calcium Level 9.0 mg/dL (8.5-10.1) Test 07/12/18 11:16 Glucose (Fingerstick) 185 mg/dL (70-99) Medications Active Scripts Medications Dose Route/Sig Max Daily Dose Days Date Category Bactrim Ds Tablet (Sulfamethoxazole/Trimethoprim) 1 Each Tablet 1 Tab PO BID 07/07/18 Reported Lisinopril 20 Mg Tablet 1 Tab PO DAILY 07/07/18 Reported Clopidogrel (Clopidogrel Bisulfate) 75 Mg Tablet 1 Tab PO DAILY 07/07/18 Reported Devaughn Rachel (Insulin Glargine,Hum.rec.anlog) 300 Unit/1 Ml Insuln.pen 300 Unit SQ BID 07/07/18 Reported Metformin Hcl 1,000 Mg Tablet 1,000 Mg PO BIDWMEALS 07/07/18 Reported Singulair Tablet (Montelukast Sodium) 10 Mg Tablet 1 Tab PO DAILY 07/07/18 Reported Coreg (Carvedilol) 6.25 Mg Tablet 6.25 Mg PO BIDWMEALS 07/07/18 Reported Pravastatin Sodium 20 Mg Tablet 1 Tab PO DAILY 07/07/18 Reported Cetirizine Hcl 10 Mg Tablet 1 Tab PO DAILY 07/07/18 Reported Bumetanide 1 Mg Tablet 1 Tab PO DAILY 07/07/18 Reported Linzess (Linaclotide) 145 Mcg Capsule 145 Mcg PO DAILY07 07/07/18 Reported Dexilant (Dexlansoprazole) 60 Mg Cap. 1 Cap PO DAILY 07/07/18 Reported Doxycycline Monohydrate 100 Mg Capsule 1 Cap PO BID 07/07/18 Reported Gabapentin (Gabapentin) 300 Mg Capsule 300 Mg PO HS 30 06/04/18 Rx Cefdinir 300 Mg Capsule 300 Mg PO BID 7 06/04/18 Rx Lantus Solostar (Insulin Glargine,Hum.rec.anlog) 100 Unit/1 Ml Insuln.pen 100 Unit SQ BID 06/04/18 Rx Humalog (Insulin Lispro) 100 Unit/1 Ml Vial 70 Unit SQ TIDAC 30 06/04/18 Rx Bevespi Aerosphere Inhaler (Glycopyrrolate/Formoterol Fum) 10.7 Gm Hfa.aer.ad 10.7 Gm IH DAILY 05/31/18 Reported Wellbutrin Xl (Bupropion Hcl) 300 Mg Tab.er.24h 1 Tab PO DAILY 01/19/18 Rx Furosemide 80 Mg Tablet 80 Mg PO DAILY 30 01/19/18 Rx Duoneb 0.5-3(2.5) Mg/3 Ml (Albuterol/Ipratropium) 3 Ml Ampul.neb 3 Ml NEB RTQID 30 01/19/18 Rx Carvedilol (Carvedilol) 6.25 Mg Tablet 1 Tab PO BID 01/15/18 Reported Pravastatin Sodium 20 Mg Tablet 1 Tab PO QHS 01/15/18 Reported Singulair Tablet (Montelukast Sodium) 10 Mg Tablet 10 Mg PO HS 01/15/18 Reported Famotidine 20 Mg Tablet 20 Mg PO HS 01/15/18 Reported Dexilant (Dexlansoprazole) 60 Mg Cap. 1 Cap PO DAILY 01/15/18 Reported Linzess (Linaclotide) 145 Mcg Capsule 145 Mcg PO DAILY 01/15/18 Reported Glucophage (Metformin Hcl) 1,000 Mg Tablet 1,000 Mg PO BIDWMEALS 04/04/17 Rx Lisinopril 20 Mg Tablet 20 Mg PO DAILY 04/04/17 Rx Aspirin Ec (Aspirin) 81 Mg Tablet.dr 81 Mg PO DAILYWBKFT 04/04/17 Rx Impression . 1. Acute hypoxic respiratory failure secondary to multifactorial etiologies includes combination of underlying chronic obstructive pulmonary disease with exacerbation, acute on chronic systolic heart failure with an ejection fraction now of of 15-20% and 75-pound weight gain in the last 6 months. 2. Abnormal previous CT chest and chest x-ray with bilateral interstitial infiltrates. This is a patient with severe cardiomyopathy and a two-vessel percutaneous coronary intervention done last year. I suspect ongoing systolic heart failure and less likely ILD. 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 Obstructive sleep apnea, Not able to lease picker CPAP yet. Poor compliance 4. Lower extremity cellulitis and lymphedema. 5. Morbid obesity. 6. Severe cardiomyopathy with previous echo with an ejection fraction of 15-20% and status post percutaneous coronary intervention of right coronary artery. 7. H/O Severe KATIUSKA 8. CKD Plan . 1. Discussed with the patient the importance of losing weight. gained 75 pounds in the last 6 months. 2. Continue present oxygen. 3. lasix drip, monitor renal function/ Dobutamine drip per cardiology 4. empiric CPAP qhs in the hospital, the importance of [place] tx discussed, advised to use cpap during sleep. 5. follow cardiology rec 6. Set up CPAP as an outpatient. 7. Smoking cessation counseling provided. 8. CT chest reviewed. Not sig changed from previous one/ suspect ongoing mild CHF discussed w LORI Tena MD Jul 12, 2018 14:55
[2018-07-12 19:10] VITALS: BP 140/55
[2018-07-12] MEDS: MONTELUKAST SODIUM 10 MG TABLET. PO SCH (20:28)
[2018-07-12] MEDS: ZOLPIDEM 5 MG TABLET. PO PRN (20:28)
[2018-07-12] MEDS: ATORVASTATIN CALCIUM 10 MG TABLET. PO SCH (20:28)
[2018-07-12] MEDS: FAMOTIDINE 20 MG TABLET. PO SCH (20:29)
[2018-07-12] MEDS: FUROSEMIDE INJ 100 MG in IV NORMAL SALINE 100ML 100 ML IV PRN ×3 (22:35)
[2018-07-12 23:05] VITALS: BP 146/74
[2018-07-13 03:15] VITALS: BP 142/72
[2018-07-13 06:57] LABS: CALCIUM 8.9 mg/dL (8.5-10.1); GFR 97.3; POTASSIUM 4.6 mmol/L (3.5-5.1)
[2018-07-13 07:00] VITALS: BP 146/76
[2018-07-13] MEDS: BUDESONIDE 0.5 MG/2 ML NEBU. NEB SCH ×2 (08:00→19:51)
[2018-07-13] MEDS: CEFEPIME HCL IV Push 2 GM VIAL. IVP SCH (08:13)
[2018-07-13] MEDS: buPROPion XL 150 MG TAB.ER.24H. PO SCH (08:15)
[2018-07-13] MEDS: LACTOBACILLUS RHAMNOSUS GG 1 CAPSULE. PO SCH ×2 (08:15→21:38)
[2018-07-13] MEDS: ASPIRIN ENTERIC COATED 81 MG TABLET.DR. PO SCH (08:15)
[2018-07-13] MEDS: LISINOPRIL 20 MG TABLET PO SCH (08:16)
[2018-07-13] MEDS: HYDROcodone/APAP 10/325 1 TAB TABLET PO PRN ×2 (08:16→23:01)
[2018-07-13] MEDS: CLOPIDOGREL BISULFATE 75 MG TABLET PO SCH (08:17)
[2018-07-13] MEDS: PANTOPRAZOLE 40 MG TABLET.DR. PO SCH (08:17)
[2018-07-13] MEDS: CETIRIZINE HCL 10 MG TABLET. PO SCH (08:17)
[2018-07-13] MEDS: GABAPENTIN 300 MG CAPSULE. PO SCH ×3 (08:18→21:39)
[2018-07-13] MEDS: CARVEDILOL 6.25 MG TABLET. PO SCH ×2 (08:18→17:30)
[2018-07-13] MEDS: FLUCONAZOLE 100 MG TABLET. PO SCH (08:18)
[2018-07-13] MEDS: metOLazone 2.5 MG TABLET PO SCH (08:20)
[2018-07-13] MEDS: DICLOFENAC SODIUM 1% TOPICAL GEL 100GM TUBE. TP SCH ×2 (08:22→21:40)
[2018-07-13] MEDS: INSULIN LISPRO 300 UNITS/3 ML INSULN.PEN. SQ SCH ×3 (08:32→17:35)
[2018-07-13] MEDS: IPRATRPIUM/ALBUTEROL 0.5/2.5MG 3 ML NEBU. NEB SCH ×4 (08:44→19:51)
--- NOTE | 2018-07-13 08:48 | PDOC ---
PROGRESS NOTES Subjective Subjective He admits continued right knee and low back and left trochanteric bursa area pain. Objective Objective Vital Signs Date Time Temp Pulse Resp B/P (MAP) Pulse Ox O2 Delivery O2 Flow Rate FiO2 07/13/18 08:18 115 146/76 07/13/18 07:00 98.3 20 95 Nasal Cannula 4.0 98.3 Intake and Output 07/13/18 07:00 Intake Total 1280 ml Output Total 6975 ml Balance -5695 ml Intake Oral 940 ml IV Total 340 ml Output Urine Total 6975 ml Physical Exam Physical Exam he is supine in bed with head end propped up and he is getting up with physical therapy and roller walker.He continues with painfully limited lumbar spine and knee joint ROM. Assessment Assessment Problems Medical Problems: (1) Bilateral lower leg cellulitis Status: Acute Plan Plan of Care To inject his right knee when agreeable to . Comment Review of Relevant I have reviewed the following items mukund (where applicable) has been applied. Labs Laboratory Tests Test 07/11/18 11:04 07/11/18 16:39 07/11/18 20:37 07/12/18 04:30 Glucose (Fingerstick) 106 mg/dL (70-99) 130 mg/dL (70-99) 111 mg/dL (70-99) White Blood Count 6.7 x10^3/uL (4.0-11.0) Red Blood Count 4.06 x10^6/uL (4.30-5.70) Hemoglobin 9.7 g/dL (13.0-17.5) Hematocrit 32.1 % (39.0-53.0) Mean Corpuscular Volume 79 fL (79-100) Mean Corpuscular Hemoglobin 24 pg (25-35) Mean Corpuscular Hemoglobin Concent 30 g/dL (31-37) Red Cell Distribution Width 20.8 % (11.5-14.5) Platelet Count 259 x10^3/uL (140-400) Neutrophils (%) (Auto) 58 % (31-73) Lymphocytes (%) (Auto) 16 % (24-48) Monocytes (%) (Auto) 18 % (0-9) Eosinophils (%) (Auto) 8 % (0-3) Basophils (%) (Auto) 1 % (0-3) Neutrophils # (Auto) 3.9 x10^3uL (1.8-7.7) Lymphocytes # (Auto) 1.1 x10^3/uL (1.0-4.8) Monocytes # (Auto) 1.2 x10^3/uL (0.0-1.1) Eosinophils # (Auto) 0.5 x10^3/uL (0.0-0.7) Basophils # (Auto) 0.1 x10^3/uL (0.0-0.2) Sodium Level 139 mmol/L (136-145) Potassium Level 5.1 mmol/L (3.5-5.1) Chloride Level 102 mmol/L (98-107) Carbon Dioxide Level 29 mmol/L (21-32) Anion Gap 8 (6-14) Blood Urea Nitrogen 29 mg/dL (8-26) Creatinine 1.4 mg/dL (0.7-1.3) Estimated GFR (Cockcroft-Gault) 66.0 Glucose Level 150 mg/dL (70-99) Calcium Level 9.0 mg/dL (8.5-10.1) Test 07/12/18 07:14 07/12/18 11:16 07/12/18 16:38 07/12/18 20:27 Glucose (Fingerstick) 142 mg/dL (70-99) 185 mg/dL (70-99) 125 mg/dL (70-99) 205 mg/dL (70-99) Test 07/13/18 06:22 07/13/18 07:09 Sodium Level 142 mmol/L (136-145) Potassium Level 4.6 mmol/L (3.5-5.1) Chloride Level 102 mmol/L (98-107) Carbon Dioxide Level 32 mmol/L (21-32) Anion Gap 8 (6-14) Blood Urea Nitrogen 22 mg/dL (8-26) Creatinine 1.0 mg/dL (0.7-1.3) Estimated GFR (Cockcroft-Gault) 97.3 Glucose Level 174 mg/dL (70-99) Calcium Level 8.9 mg/dL (8.5-10.1) Glucose (Fingerstick) 162 mg/dL (70-99) Laboratory Tests Test 07/12/18 11:16 07/12/18 16:38 07/12/18 20:27 07/13/18 06:22 Glucose (Fingerstick) 185 mg/dL (70-99) 125 mg/dL (70-99) 205 mg/dL (70-99) Sodium Level 142 mmol/L (136-145) Potassium Level 4.6 mmol/L (3.5-5.1) Chloride Level 102 mmol/L (98-107) Carbon Dioxide Level 32 mmol/L (21-32) Anion Gap 8 (6-14) Blood Urea Nitrogen 22 mg/dL (8-26) Creatinine 1.0 mg/dL (0.7-1.3) Estimated GFR (Cockcroft-Gault) 97.3 Glucose Level 174 mg/dL (70-99) Calcium Level 8.9 mg/dL (8.5-10.1) Test 07/13/18 07:09 Glucose (Fingerstick) 162 mg/dL (70-99) Microbiology 07/07/18 Blood Culture - Final, Complete NO GROWTH AFTER 5 DAYS Medications Current Medications Ondansetron HCl (Zofran) 4 mg 1X ONCE IV Last administered on 07/07/18 18:36; Start 07/07/18 at 18:15; Stop 07/07/18 at 18:16; Status DC Morphine Sulfate (Morphine Sulfate) 4 mg 1X ONCE IV Last administered on 18:38; Start 07/07/18 at 18:15; Stop 07/07/18 at 18:16; Status DC Vancomycin HCl (Vanco Per Pharmacy) 1 each PRN DAILY PRN MC SEE COMMENTS Last administered on 07/07/18 21:02; Start 07/07/18 at 18:45; Stop 07/08/18 at 11:22; Status DC Vancomycin HCl 2 gm/Sodium Chloride 500 ml @ 250 mls/hr 1X ONCE IV Last administered on 07/07/18 18:54; Start 07/07/18 at 19:00; Stop 07/07/18 at 20:59; Status DC Morphine Sulfate (Morphine Sulfate) 4 mg PRN Q2HR PRN IV PAIN Last administered on 07/08/18 19:08; Start 07/07/18 at 20:15; Stop 07/08/18 at 20:14; Status DC Acetaminophen (Tylenol) 650 mg PRN Q4HRS PRN PO FEVER; Start 07/07/18 at 20:15; Stop 07/08/18 at 20:14; Status DC Vancomycin HCl 1.75 gm/Sodium Chloride 500 ml @ 250 mls/hr Q8H IV Last administered on 07/08/18at 03:22; Start 07/08/18 at 03:00; Stop 07/08/18 at 11:22; Status DC Vancomycin HCl (Vancomycin Trough Level) 1 each 1X ONCE MC ; Start 07/08/18 at 18:30; Stop 07/08/18 at 18:30; Status DC Albuterol Sulfate (Ventolin Neb Soln) 2.5 mg PRN Q4HRS PRN NEB SHORTNESS OF BREATH Last administered on 07/08/18at 08:01; Start 07/07/18 at 23:15 Bumetanide (Bumex) 1 mg DAILY PO Last administered on 07/08/18at 09:06; Start 07/08/18 at 09:00; Stop 07/08/18 at 13:02; Status DC Carvedilol (Coreg) 6.25 mg BIDWMEALS PO Last administered on 07/13/18at 08:18; Start 07/08/18 at 08:00 Carvedilol (Coreg) 6.25 mg BIDWMEALS PO ; Start 07/08/18 at 08:00; Status UNV Cetirizine HCl (ZyrTEC) 10 mg DAILY PO Last administered on 07/13/18at 08:17; Start 07/08/18 at 09:00 Clopidogrel Bisulfate (Plavix) 75 mg DAILY PO Last administered on 07/13/18 08: 17; Start 07/08/18 at 09:00 Lisinopril (Prinivil) 20 mg DAILY PO Last administered on 07/13/18at 08:16; Start 07/08/18 at 09:00 Trimethoprim/ Sulfamethoxazole (Bactrim Ds) 1 tab BID PO ; Start 07/08/18 at 09: 00; Status UNV Pantoprazole Sodium (Protonix) 40 mg DAILYAC PO Last administered on 07/13/18at 08:17; Start 07/08/18 at 07:30 Non-Formulary Medication (Doxycycline Monohydrate ) 1 cap BID PO ; Start at 09:00; Status UNV Insulin Glargine (Lantus) 80 units DAILYAC SQ Last administered on 07/08/18 09: 42; Start 07/08/18 at 07:30; Stop 07/08/18 at 10:21; Status DC Non-Formulary Medication (Linaclotide (Linzess)) 145 mcg DAILY07 PO Last administered on 07/09/18 07:00; Start 07/08/18 at 07:00; Stop 07/10/18 at 16:57; Status DC Metformin HCl (Glucophage) 1,000 mg BIDWMEALS PO Last administered on 07/11/18 08:59; Start 07/08/18 at 08:00; Stop 07/11/18 at 19:12; Status DC Montelukast Sodium (Singulair) 10 mg QHS PO Last administered on 07/12/18 20:28 ; Start 07/08/18 at 21:00 Atorvastatin Calcium (Lipitor) 5 mg QHS PO Last administered on 07/12/18 20:28 ; Start 07/08/18 at 21:00 Insulin Glargine (Lantus) 80 units 1400 SQ ; Start 07/08/18 at 14:00; Status Cancel Aspirin (Ecotrin) 81 mg DAILYWBKFT PO Last administered on 07/13/18 08:15; Start 07/08/18 at 11:00 Carvedilol (Coreg) 6.25 mg BIDWMEALS PO ; Start 07/08/18 at 11:00; Status Cancel Famotidine (Pepcid) 20 mg HS PO Last administered on 07/12/18 20:29; Start 07/08 at 21:00 Furosemide (Lasix) 80 mg DAILY PO Last administered on 07/08/18 12:47; Start at 11:00; Stop 07/08/18 at 13:02; Status DC Gabapentin (Neurontin) 300 mg HS PO Last administered on 07/11/18 20:32; Start 07/08/18 at 21:00; Stop 07/12/18 at 10:20; Status DC Insulin Glargine (Lantus) 100 units BID SQ ; Start 07/08/18 at 21:00; Status Cancel Insulin Human Lispro (HumaLOG) 70 units TIDWMEALS SQ Last administered on 08:32; Start 07/08/18 at 12:00 Albuterol/ Ipratropium (Duoneb) 3 ml RTQID NEB Last administered on 07/13/18 08 :44; Start 07/08/18 at 12:00 Bupropion HCl (Wellbutrin Xl) 300 mg DAILY PO Last administered on 07/13/18 08: 15; Start 07/08/18 at 11:00 Non-Formulary Medication (Dexlansoprazole (Dexilant)) 1 cap DAILY PO ; Start 07/09/18 at 09:00; Stop 07/09/18 at 09:00; Status DC Non-Formulary Medication (Glycopyrrolate/ Formoterol Fum (Bevespi Aerosphere Inhaler)) 10.7 gm DAILY IH ; Start 07/09/18 at 09:00; Stop 07/10/18 at 10:43; Status DC Non-Formulary Medication (Linaclotide (Linzess)) 145 mcg DAILY PO ; Start at 09:00; Status UNV Non-Formulary Medication (Metformin Hcl (Glucophage)) 1,000 mg BIDWMEALS PO ; Start 07/08/18 at 17:00; Status UNV Non-Formulary Medication (Montelukast Sodium (Singulair Tablet)) 10 mg HS PO ; Start 07/08/18 at 21:00; Status UNV Non-Formulary Medication (Pravastatin Sodium ) 1 tab QHS PO ; Start 07/08/18 at 21:00; Status UNV Insulin Glargine (Lantus) 80 units BID SQ Last administered on 07/12/18at 20:40; Start 07/08/18 at 21:00 Ondansetron HCl (Zofran) 4 mg PRN Q6HRS PRN IV NAUSEA/VOMITING Last administered on 07/08/18 19:26; Start 07/08/18 at 11:15 Nicotine (Nicoderm Cq 21mg) 1 patch DAILY TD Last administered on 07/12/18 08: 31; Start 07/08/18 at 11:30 Albuterol Sulfate (Ventolin Neb Soln) 2.5 mg RTQID NEB ; Start 07/08/18 at 12:00 ; Stop 07/08/18 at 12:01; Status DC Linezolid (Zyvox) 600 mg BID PO Last administered on 07/11/18 09:20; Start 07/08 at 12:00; Stop 07/11/18 at 11:07; Status DC Metronidazole (Flagyl) 500 mg Q12HR PO Last administered on 07/11/18 08:59; Start 07/08/18 at 12:00; Stop 07/11/18 at 11:07; Status DC Fluconazole (Diflucan) 100 mg DAILY PO Last administered on 07/13/18 08:18; Start 07/08/18 at 12:00 Cefepime HCl (Maxipime) 2 gm Q12HR IVP Last administered on 07/13/18 08:13; Start 07/08/18 at 12:00 Diclofenac Sodium (Voltaren) 1 chung BID TP Last administered on 07/13/18 08:22; Start 07/08/18 at 21:00 Metolazone (Zaroxolyn) 5 mg DAILY PO Last administered on 07/13/18 08:20; Start 07/08/18 at 14:00 Furosemide (Lasix) 40 mg 1X ONCE IVP Last administered on 07/08/18 17:56; Start 07/08/18 at 13:00; Stop 07/08/18 at 13:19; Status DC Furosemide (Lasix) 40 mg Q6HRS IVP Last administered on 07/09/18 06:17; Start 07/08/18 at 18:00; Stop 07/09/18 at 11:26; Status DC Diphenhydramine HCl (Benadryl) 25 mg PRN Q6HRS PRN PO ITCHING Last administered on 07/12/18 03:31; Start 07/08/18 at 20:00 Lactobacillus Rhamnosus (Culturelle) 1 cap BID PO Last administered on 08:15; Start 07/08/18 at 21:00 Acetaminophen/ Hydrocodone Bitart (Lortab 5/325) 1 tab PRN Q4HRS PRN PO PAIN Last administered on 07/11/18 06:25; Start 07/09/18 at 10:30; Stop 07/11/18 at 09: 12; Status DC Dobutamine HCl/ Dextrose 250 ml @ 32.318 mls/ hr CONT PRN IV PER PROTOCOL Last administered on 07/13/18 00:54; Start 07/09/18 at 11:30 Furosemide 100 mg/ Sodium Chloride 100 ml @ 5 mls/hr CONT PRN IV SEE I/O RECORD Last administered on 07/12/18 22:35; Start 07/09/18 at 11:15 Methylprednisolone Acetate (DEPO-Medrol 40MG VIAL) 40 mg 1X ONCE IM Last administered on 07/10/18 09:15; Start 07/10/18 at 09:15; Stop 07/10/18 at 09:21; Status DC Bupivacaine HCl (Sensorcaine-Mpf 0.25%) 10 ml 1X ONCE IJ Last administered on 07/10/18 09:15; Start 07/10/18 at 09:15; Stop 07/10/18 at 09:21; Status DC Enoxaparin Sodium (Lovenox 80mg Syringe) 80 mg Q12HR SQ ; Start 07/10/18 at 10:15 ; Stop 07/10/18 at 11:14; Status DC Budesonide (Pulmicort) 0.5 mg RTBID NEB Last administered on 07/13/18 08:00; Start 07/10/18 at 20:00 Budesonide (Pulmicort) 0.5 mg 1X ONCE NEB Last administered on 07/10/18 11:25 ; Start 07/10/18 at 10:15; Stop 07/10/18 at 10:31; Status DC Enoxaparin Sodium (Lovenox 60mg Syringe) 60 mg Q12HR SQ Last administered on 08:15; Start 07/10/18 at 12:00 Lubiprostone (Amitiza) 8 mcg BIDWMEALS PO Last administered on 07/10/18 17:36; Start 07/10/18 at 14:00; Stop 07/10/18 at 20:00; Status DC Non-Formulary Medication (Linaclotide (Linzess)) 145 mcg DAILY07 PO Last administered on 07/13/18 07:00; Start 07/11/18 at 07:00 Zolpidem Tartrate (Ambien) 5 mg PRN QHS PRN PO INSOMNIA Last administered on 20:28; Start 07/10/18 at 18:15 Acetaminophen/ Hydrocodone Bitart (Lortab 10/325) 1 tab PRN Q6HRS PRN PO PAIN Last administered on 07/13/18at 08:16; Start 07/11/18 at 09:15 Gabapentin (Neurontin) 300 mg TID PO Last administered on 07/13/18at 08:18; Start 07/12/18 at 10:30 Tizanidine HCl (Zanaflex) 4 mg PRN Q8HRS PRN PO MUSCLE SPASMS; Start 07/12/18 at 10:30 Active Scripts Active Gabapentin (Gabapentin) 300 Mg Capsule 300 Mg PO HS 30 Days Cefdinir 300 Mg Capsule 300 Mg PO BID 7 Days Lantus Solostar (Insulin Glargine,Hum.rec.anlog) 100 Unit/1 Ml Insuln.pen 100 Unit SQ BID Humalog (Insulin Lispro) 100 Unit/1 Ml Vial 70 Unit SQ TIDAC 30 Days Wellbutrin Xl (Bupropion Hcl) 300 Mg Tab.er.24h 1 Tab PO DAILY Furosemide 80 Mg Tablet 80 Mg PO DAILY 30 Days Duoneb 0.5-3(2.5) Mg/3 Ml (Albuterol/Ipratropium) 3 Ml Ampul.neb 3 Ml NEB RTQID 30 Days Glucophage (Metformin Hcl) 1,000 Mg Tablet 1,000 Mg PO BIDWMEALS Lisinopril 20 Mg Tablet 20 Mg PO DAILY Aspirin Ec (Aspirin) 81 Mg Tablet. 81 Mg PO DAILYWBKFT Reported Bactrim Ds Tablet (Sulfamethoxazole/Trimethoprim) 1 Each Tablet 1 Tab PO BID Lisinopril 20 Mg Tablet 1 Tab PO DAILY Clopidogrel (Clopidogrel Bisulfate) 75 Mg Tablet 1 Tab PO DAILY Toujeo Solostar (Insulin Glargine,Hum.rec.anlog) 300 Unit/1 Ml Insuln.pen 300 Unit SQ BID Metformin Hcl 1,000 Mg Tablet 1,000 Mg PO BIDWMEALS Singulair Tablet (Montelukast Sodium) 10 Mg Tablet 1 Tab PO DAILY Coreg (Carvedilol) 6.25 Mg Tablet 6.25 Mg PO BIDWMEALS Pravastatin Sodium 20 Mg Tablet 1 Tab PO DAILY Cetirizine Hcl 10 Mg Tablet 1 Tab PO DAILY Bumetanide 1 Mg Tablet 1 Tab PO DAILY Linzess (Linaclotide) 145 Mcg Capsule 145 Mcg PO DAILY07 Dexilant (Dexlansoprazole) 60 Mg [place]. 1 Cap PO DAILY Doxycycline Monohydrate 100 Mg Capsule 1 Cap PO BID Bevespi Aerosphere Inhaler (Glycopyrrolate/Formoterol Fum) 10.7 Gm Hfa.aer.ad 10.7 Gm IH DAILY Carvedilol (Carvedilol) 6.25 Mg Tablet 1 Tab PO BID Pravastatin Sodium 20 Mg Tablet 1 Tab PO QHS Singulair Tablet (Montelukast Sodium) 10 Mg Tablet 10 Mg PO HS Famotidine 20 Mg Tablet 20 Mg PO HS Dexilant (Dexlansoprazole) 60 Mg Cap. 1 Cap PO DAILY Linzess (Linaclotide) 145 Mcg Capsule 145 Mcg PO DAILY Vitals/I & O Vital Sign - Last 24 Hours 07/12/18 07/12/18 07/12/18 07/12/18 11:38 11:44 14:48 15:51 Temp 97.4 97.5 97.4 97.5 Pulse 91 99 Resp 20 22 B/P (MAP) 151/76 (101) 129/71 (90) Pulse Ox 94 91 91 O2 Delivery Room Air Room Air Room Air Room Air 07/12/18 07/12/18 07/12/18 07/12/18 18:15 19:10 20:30 20:34 Temp 97.9 97.9 Pulse 106 106 Resp 21 B/P (MAP) 141/55 140/55 (83) Pulse Ox 96 93 O2 Delivery Nasal Cannula Nasal Cannula Room Air O2 Flow Rate 4.0 3.0 07/12/18 07/12/18 07/13/18 07/13/18 23:05 23:55 03:15 07:00 Temp 98.5 97.9 98.3 98.5 97.9 98.3 Pulse 104 105 115 Resp 23 20 20 B/P (MAP) 146/74 (98) 142/72 (95) 146/76 (99) Pulse Ox 96 96 96 95 O2 Delivery Room Air BiPAP/CPAP Nasal Cannula Nasal Cannula O2 Flow Rate 4.0 4.0 07/13/18 07/13/18 08:16 08:18 Pulse 115 115 B/P (MAP) 146/76 146/76 Intake and Output 07/12/18 07/12/18 07/13/18 15:00 23:00 07:00 Intake Total 180 ml 455 ml 645 ml Output Total 2350 ml 1625 ml 3000 ml Balance -2170 ml -1170 ml -2355 ml ALVARO RHOADES MD Jul 13, 2018 08:48
[2018-07-13] MEDS: NICOTINE 21MG PATCH. TD SCH (09:16)
--- NOTE | 2018-07-13 09:28 | PDOC ---
Infectious Disease Note Subjective Subjective Trying to get up and move around more No F/C/S/N/V/D/pain Vital Sign Vital Signs Vital Signs Date Time Temp Pulse Resp B/P (MAP) Pulse Ox O2 Delivery O2 Flow Rate FiO2 07/13/18 08:45 94 Room Air 07/13/18 08:18 115 146/76 07/13/18 07:00 98.3 20 4.0 98.3 Physical Exam PHYSICAL EXAM GENERAL: Sitting in hte chair, alert, relaxed appearance HEENT: Pupils equal and reactive. Oral cavity, pharynx is clear. NECK: Supple. LUNGS: Clear to auscultation. HEART: S1, S2. ABDOMEN: Morbidly obese, soft, no guarding, no rebound. He has got some pitting thickness of his lower extremity abdominal area EXTREMITIES: No clubbing, cyanosis. Chronic swelling of the bilateral lower extremities, left greater than right and also had some fullness and thickening of groin tissue of his left thigh. SKIN: Otherwise warm to touch without signs of rash. NEUROLOGIC: Nonfocal and appropriate. PIV Labs Lab Laboratory Tests Test 07/12/18 11:16 07/12/18 16:38 07/12/18 20:27 07/13/18 06:22 Glucose (Fingerstick) 185 mg/dL (70-99) 125 mg/dL (70-99) 205 mg/dL (70-99) Sodium Level 142 mmol/L (136-145) Potassium Level 4.6 mmol/L (3.5-5.1) Chloride Level 102 mmol/L (98-107) Carbon Dioxide Level 32 mmol/L (21-32) Anion Gap 8 (6-14) Blood Urea Nitrogen 22 mg/dL (8-26) Creatinine 1.0 mg/dL (0.7-1.3) Estimated GFR (Cockcroft-Gault) 97.3 Glucose Level 174 mg/dL (70-99) Calcium Level 8.9 mg/dL (8.5-10.1) Test 07/13/18 07:09 Glucose (Fingerstick) 162 mg/dL (70-99) Micro Microbiology 07/07/18 Blood Culture - Final, Complete NO GROWTH AFTER 5 DAYS Objective Assessment Left upper thigh cellulitis/yeast vs fluid retention - normal Procalcitonin NURY - stable Fluid overload Augmentin allergy - rash Morbid Obesity DM Plan Plan of Care Change Cefepime to omnicef and Fluconazole off Zyvox and Flagyl Probiotics Diuresis BC NGTD CUCO TRENT MD Jul 13, 2018 09:28
--- NOTE | 2018-07-13 10:18 | PDOC ---
SUBJECTIVE ROS No new complaints, OBJECTIVE Vital Signs Vital Signs Date Time Temp Pulse Resp B/P (MAP) Pulse Ox O2 Delivery O2 Flow Rate FiO2 07/13/18 08:45 94 Room Air 07/13/18 08:18 115 146/76 07/13/18 08:00 4.0 07/13/18 07:00 98.3 20 98.3 I & 0 Intake and Output 07/13/18 07:00 Intake Total 1280 ml Output Total 6975 ml Balance -5695 ml Intake Oral 940 ml IV Total 340 ml Output Urine Total 6975 ml PHYSICAL EXAM Physical Exam Gen: NAD, HEENT: OM moist , On RA NECK: Supple. LUNGS: Clear to auscultation. HEART: S1, S2. ABDOMEN: Morbidly obese, pitting edema lower abdominal area., improved some EXTREMITIES: chronic swelling of the bilateral lower extremities, left greater than right mostly in thighs SKIN: No rash NEUROLOGIC: Nonfocal No garcia DIAGNOSIS/ASSESSMENT Assessment & Plan Anasarca- Cardiorenal On Lasix drip , Dobutamine and Metolazone , NURY -Cardiorenal, renal function improving Hyperkalemia- resolved LE cellulitis- ID Has been on multiple ABx as per Pt Most Recent Bactrim prior to admission Morbid Obesity CM with EF of 15-20% Cardiology following Pulm Infiltrates CT scan stable findings Hyperkalemia Severe KATIUSKA- Non compliant Chronic Anemia CAD COMMENT/RELEVANT DATA Meds Current Medications Medications (Trade) Dose Ordered Sig/Linden Start Time Stop Time Status Last Admin Dose Admin Acetaminophen (Tylenol) 650 mg PRN Q4HRS PRN 07/07/18 20:15 07/08/18 20:14 DC Acetaminophen/ Hydrocodone Bitart (Lortab 10/325) 1 tab PRN Q6HRS PRN 07/11/18 09:15 07/13/18 08:16 1 TAB Acetaminophen/ Hydrocodone Bitart (Lortab 5/325) 1 tab PRN Q4HRS PRN 07/09/18 10:30 07/11/18 09:12 DC 07/11/18 06:25 1 TAB Albuterol Sulfate (Ventolin Neb Soln) 2.5 mg RTQID 07/08/18 12:00 07/08/18 12:01 DC Albuterol/ Ipratropium (Duoneb) 3 ml RTQID 07/08/18 12:00 07/13/18 08:44 3 ML Aspirin (Ecotrin) 81 mg DAILYWBKFT 07/08/18 11:00 07/13/18 08:15 81 MG Atorvastatin Calcium (Lipitor) 5 mg QHS 07/08/18 21:00 07/12/18 20:28 5 MG Budesonide (Pulmicort) 0.5 mg 1X ONCE 07/10/18 10:15 07/10/18 10:31 DC 07/10/18 11:25 0.5 MG Bumetanide (Bumex) 1 mg DAILY 07/08/18 09:00 07/08/18 13:02 DC 07/08/18 09:06 1 MG Bupivacaine HCl (Sensorcaine-Mpf 0.25%) 10 ml 1X ONCE 07/10/18 09:15 07/10/18 09:21 DC 07/10/18 09:15 10 ML Bupropion HCl (Wellbutrin Xl) 300 mg DAILY 07/08/18 11:00 07/13/18 08:15 300 MG Carvedilol (Coreg) 6.25 mg BIDWMEALS 07/08/18 11:00 Cancel Cefdinir (Omnicef) 300 mg BID 07/13/18 21:00 Cefepime HCl (Maxipime) 2 gm Q12HR 07/08/18 12:00 07/13/18 09:28 DC 07/13/18 08:13 2 GM Cetirizine HCl (ZyrTEC) 10 mg DAILY 07/08/18 09:00 07/13/18 08:17 10 MG Clopidogrel Bisulfate (Plavix) 75 mg DAILY 07/08/18 09:00 07/13/18 08:17 75 MG Diclofenac Sodium (Voltaren) 1 chung BID 07/08/18 21:00 07/13/18 08:22 1 CHUNG Diphenhydramine HCl (Benadryl) 25 mg PRN Q6HRS PRN 07/08/18 20:00 07/12/18 03:31 25 MG Dobutamine HCl/ Dextrose 250 ml @ 32.318 mls/ hr CONT PRN 07/09/18 11:30 07/13/18 09:36 32.318 MLS/HR Enoxaparin Sodium (Lovenox 60mg Syringe) 60 mg Q12HR 07/10/18 12:00 07/13/18 08:15 60 MG Enoxaparin Sodium (Lovenox 80mg Syringe) 80 mg Q12HR 07/10/18 10:15 07/10/18 11:14 DC Famotidine (Pepcid) 20 mg HS 07/08/18 21:00 07/12/18 20:29 20 MG Fluconazole (Diflucan) 200 mg DAILY 07/14/18 09:00 Furosemide (Lasix) 40 mg Q6HRS 07/08/18 18:00 07/09/18 11:26 DC 07/09/18 06:17 40 MG Furosemide 100 mg/ Sodium Chloride 100 ml @ 5 mls/hr CONT PRN 07/09/18 11:15 07/12/18 22:35 5 MLS/HR Gabapentin (Neurontin) 300 mg TID 07/12/18 10:30 07/13/18 08:18 300 MG Insulin Glargine (Lantus) 80 units BID 07/08/18 21:00 07/12/18 20:40 80 UNITS Insulin Human Lispro (HumaLOG) 70 units TIDWMEALS 07/08/18 12:00 07/13/18 08:32 70 UNITS Lactobacillus Rhamnosus (Culturelle) 1 cap BID 07/08/18 21:00 07/13/18 08:15 1 CAP Linezolid (Zyvox) 600 mg BID 07/08/18 12:00 07/11/18 11:07 DC 07/11/18 09:20 600 MG Lisinopril (Prinivil) 20 mg DAILY 07/08/18 09:00 07/13/18 08:16 20 MG Lubiprostone (Amitiza) 8 mcg BIDWMEALS 07/10/18 14:00 07/10/18 20:00 DC 07/10/18 17:36 8 MCG Metformin HCl (Glucophage) 1,000 mg BIDWMEALS 07/08/18 08:00 07/11/18 19:12 DC 07/11/18 08:59 1,000 MG Methylprednisolone Acetate (DEPO-Medrol 40MG VIAL) 40 mg 1X ONCE 07/10/18 09:15 07/10/18 09:21 DC 07/10/18 09:15 40 MG Metolazone (Zaroxolyn) 5 mg DAILY 07/08/18 14:00 07/13/18 08:20 5 MG Metronidazole (Flagyl) 500 mg Q12HR 07/08/18 12:00 07/11/18 11:07 DC 07/11/18 08:59 500 MG Montelukast Sodium (Singulair) 10 mg QHS 07/08/18 21:00 07/12/18 20:28 10 MG Morphine Sulfate (Morphine Sulfate) 4 mg PRN Q2HR PRN 07/07/18 20:15 07/08/18 20:14 DC 07/08/18 19:08 4 MG Nicotine (Nicoderm Cq 21mg) 1 patch DAILY 07/08/18 11:30 07/13/18 09:16 1 PATCH Non-Formulary Medication (Dexlansoprazole (Dexilant)) 1 cap DAILY 07/09/18 09:00 07/09/18 09:00 DC Non-Formulary Medication (Doxycycline Monohydrate ) 1 cap BID 07/08/18 09:00 UNV Non-Formulary Medication (Glycopyrrolate/ Formoterol Fum (Bevespi Aerosphere Inhaler)) 10.7 gm DAILY 07/09/18 09:00 07/10/18 10:43 DC Non-Formulary Medication (Linaclotide (Linzess)) 145 mcg DAILY07 07/11/18 07:00 07/13/18 07:00 145 MCG Non-Formulary Medication (Metformin Hcl (Glucophage)) 1,000 mg BIDWMEALS 07/08/18 17:00 UNV Non-Formulary Medication (Montelukast Sodium (Singulair Tablet)) 10 mg HS 07/08/18 21:00 UNV Non-Formulary Medication (Pravastatin Sodium ) 1 tab QHS 07/08/18 21:00 UNV Ondansetron HCl (Zofran) 4 mg PRN Q6HRS PRN 07/08/18 11:15 07/08/18 19:26 4 MG Pantoprazole Sodium (Protonix) 40 mg DAILYAC 07/08/18 07:30 07/13/18 08:17 40 MG Tizanidine HCl (Zanaflex) 4 mg PRN Q8HRS PRN 07/12/18 10:30 Trimethoprim/ Sulfamethoxazole (Bactrim Ds) 1 tab BID 07/08/18 09:00 UNV Vancomycin HCl (Vanco Per Pharmacy) 1 each PRN DAILY PRN 07/07/18 18:45 07/08/18 11:22 DC 07/07/18 21:02 1 EACH Vancomycin HCl (Vancomycin Trough Level) 1 each 1X ONCE 07/08/18 18:30 07/08/18 18:30 DC Vancomycin HCl 1.75 gm/Sodium Chloride 500 ml @ 250 mls/hr Q8H 07/08/18 03:00 07/08/18 11:22 DC 07/08/18 03:22 250 MLS/HR Vancomycin HCl 2 gm/Sodium Chloride 500 ml @ 250 mls/hr 1X ONCE 07/07/18 19:00 07/07/18 20:59 DC 07/07/18 18:54 250 MLS/HR Zolpidem Tartrate (Ambien) 5 mg PRN QHS PRN 07/10/18 18:15 07/12/18 20:28 5 MG Lab Laboratory Tests Test 07/12/18 11:16 07/12/18 16:38 07/12/18 20:27 07/13/18 06:22 Glucose (Fingerstick) 185 mg/dL (70-99) 125 mg/dL (70-99) 205 mg/dL (70-99) Sodium Level 142 mmol/L (136-145) Potassium Level 4.6 mmol/L (3.5-5.1) Chloride Level 102 mmol/L (98-107) Carbon Dioxide Level 32 mmol/L (21-32) Anion Gap 8 (6-14) Blood Urea Nitrogen 22 mg/dL (8-26) Creatinine 1.0 mg/dL (0.7-1.3) Estimated GFR (Cockcroft-Gault) 97.3 Glucose Level 174 mg/dL (70-99) Calcium Level 8.9 mg/dL (8.5-10.1) Magnesium Level 1.8 mg/dL (1.8-2.4) Test 07/13/18 07:09 Glucose (Fingerstick) 162 mg/dL (70-99) Results All relevant outside records, renal labs, imaging studies, telemetry/EKG's were reviewed. GILMA GARCES MD Jul 13, 2018 10:18
--- NOTE | 2018-07-13 10:57 | PDOC ---
IM PROGRESS NOTES- Subjective Subjective Complains of leg cramps. No complaints of dyspnea. Objective Vitals Vital Signs Date Time Temp Pulse Resp B/P (MAP) Pulse Ox O2 Delivery O2 Flow Rate FiO2 07/13/18 08:45 94 Room Air 07/13/18 08:18 115 146/76 07/13/18 08:00 4.0 07/13/18 07:00 98.3 20 98.3 Input & Output Intake and Output 07/13/18 07:00 Intake Total 1280 ml Output Total 6975 ml Balance -5695 ml Intake Oral 940 ml IV Total 340 ml Output Urine Total 6975 ml Physical Exam Physical Exam General appearance - alert,ill appearing, and in no distress and oriented to person, place, and time Mental Status - alert, oriented to person, place, and time, affect appropriate to mood Head - normal Chest - clear to auscultation, no wheezes, rales or rhonchi, symmetric air entry Heart - S1 and S2 normal Abdomen - soft, nontender, nondistended, no masses or organomegaly. Patient has a large pannus with edema of the abdomen and thighs Neurological - alert and oriented Musculoskeletal - no muscular tenderness noted Extremities - edema decreased Skin - warm and dry Labs Laboratory Tests Test 07/11/18 11:04 07/11/18 16:39 07/11/18 20:37 07/12/18 04:30 Glucose (Fingerstick) 106 mg/dL (70-99) 130 mg/dL (70-99) 111 mg/dL (70-99) White Blood Count 6.7 x10^3/uL (4.0-11.0) Red Blood Count 4.06 x10^6/uL (4.30-5.70) Hemoglobin 9.7 g/dL (13.0-17.5) Hematocrit 32.1 % (39.0-53.0) Mean Corpuscular Volume 79 fL (79-100) Mean Corpuscular Hemoglobin 24 pg (25-35) Mean Corpuscular Hemoglobin Concent 30 g/dL (31-37) Red Cell Distribution Width 20.8 % (11.5-14.5) Platelet Count 259 x10^3/uL (140-400) Neutrophils (%) (Auto) 58 % (31-73) Lymphocytes (%) (Auto) 16 % (24-48) Monocytes (%) (Auto) 18 % (0-9) Eosinophils (%) (Auto) 8 % (0-3) Basophils (%) (Auto) 1 % (0-3) Neutrophils # (Auto) 3.9 x10^3uL (1.8-7.7) Lymphocytes # (Auto) 1.1 x10^3/uL (1.0-4.8) Monocytes # (Auto) 1.2 x10^3/uL (0.0-1.1) Eosinophils # (Auto) 0.5 x10^3/uL (0.0-0.7) Basophils # (Auto) 0.1 x10^3/uL (0.0-0.2) Sodium Level 139 mmol/L (136-145) Potassium Level 5.1 mmol/L (3.5-5.1) Chloride Level 102 mmol/L (98-107) Carbon Dioxide Level 29 mmol/L (21-32) Anion Gap 8 (6-14) Blood Urea Nitrogen 29 mg/dL (8-26) Creatinine 1.4 mg/dL (0.7-1.3) Estimated GFR (Cockcroft-Gault) 66.0 Glucose Level 150 mg/dL (70-99) Calcium Level 9.0 mg/dL (8.5-10.1) Test 07/12/18 07:14 07/12/18 11:16 07/12/18 16:38 07/12/18 20:27 Glucose (Fingerstick) 142 mg/dL (70-99) 185 mg/dL (70-99) 125 mg/dL (70-99) 205 mg/dL (70-99) Test 07/13/18 06:22 07/13/18 07:09 Sodium Level 142 mmol/L (136-145) Potassium Level 4.6 mmol/L (3.5-5.1) Chloride Level 102 mmol/L (98-107) Carbon Dioxide Level 32 mmol/L (21-32) Anion Gap 8 (6-14) Blood Urea Nitrogen 22 mg/dL (8-26) Creatinine 1.0 mg/dL (0.7-1.3) Estimated GFR (Cockcroft-Gault) 97.3 Glucose Level 174 mg/dL (70-99) Calcium Level 8.9 mg/dL (8.5-10.1) Magnesium Level 1.8 mg/dL (1.8-2.4) Glucose (Fingerstick) 162 mg/dL (70-99) Laboratory Tests Test 07/12/18 11:16 07/12/18 16:38 07/12/18 20:27 07/13/18 06:22 Glucose (Fingerstick) 185 mg/dL (70-99) 125 mg/dL (70-99) 205 mg/dL (70-99) Sodium Level 142 mmol/L (136-145) Potassium Level 4.6 mmol/L (3.5-5.1) Chloride Level 102 mmol/L (98-107) Carbon Dioxide Level 32 mmol/L (21-32) Anion Gap 8 (6-14) Blood Urea Nitrogen 22 mg/dL (8-26) Creatinine 1.0 mg/dL (0.7-1.3) Estimated GFR (Cockcroft-Gault) 97.3 Glucose Level 174 mg/dL (70-99) Calcium Level 8.9 mg/dL (8.5-10.1) Magnesium Level 1.8 mg/dL (1.8-2.4) Test 07/13/18 07:09 Glucose (Fingerstick) 162 mg/dL (70-99) Meds Current Medications Cefdinir (Omnicef) 300 mg BID PO ; Start 07/13/18 at 21:00 Fluconazole (Diflucan) 200 mg DAILY PO ; Start 07/14/18 at 09:00 Assessment Assessment Problems Medical Problems: (1) Bilateral lower leg cellulitis Status: Acute IMPRESSION: 1. Possible cellulitis of the lower extremities. 2. Chronic edema of both lower extremities and lymphedema. 3. 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 4. Respiratory failure, hypoxic. 5. Morbid obesity. 6. Obstructive sleep apnea, CPAP, noncompliant. 7. Diabetes mellitus type 2, insulin-dependent, noncompliant. 8. Chronic obstructive pulmonary disease. 9. Hyperkalemia. 10. Slow transit constipation. 11. Osteoarthritis of both knees. 12. Physical deconditioning. 13. History of right lower lung nodule. 14. Gastroesophageal reflux disease with esophagitis. 15. Mixed hyperlipidemia. 16. Noncompliance. 17. Anemia of chronic disease. 18. Coronary artery disease with 2-vessel coronary artery disease status post drug-eluting stent of the right coronary artery on 04/03/2017. PLAN: His admission weight was 475 pounds now it is 444 pounds. on iv lasix drip+ dobutamine drip continue Neurontin and tizanidine for muscle spasms. Potassium is 4.6 today magnesium is pending. echo 15%. renal consult. monitor kidney function continue consultation with Dr. Valladares and Dr. Boggs morbid obesity. rehab consult appreciated discussed with Dr. Willis. Hold off on injections in the knees. fluid restriction Plan Plan For more details regarding further plans, please refer to the orders. PADDY LINCOLN MD Jul 13, 2018 10:57
[2018-07-13 11:08] VITALS: BP 133/52
--- NOTE | 2018-07-13 11:44 | NUR ---
SS following up with discharge planning. PT/OT ordered for pt. SS currently awaiting evaluations and recommendations from PT/OT. Pt is from home and is currently requiring oxygen. SS will continue to follow for discharge planning.
[2018-07-13] MEDS: INSULIN GLARGINE 300 UNITS/3 ML INSULN.PEN. SQ SCH ×2 (12:22→21:45)
--- NOTE | 2018-07-13 13:02 | PDOC ---
PULMONARY PROGRESS NOTES Subjective sob better, no cough, no pain Vitals Vital Signs Date Time Temp Pulse Resp B/P (MAP) Pulse Ox O2 Delivery O2 Flow Rate FiO2 07/13/18 12:03 93 Room Air 07/13/18 11:08 97.9 111 20 133/52 (79) 4.0 97.9 General: Alert, No acute distress HEENT: Other (nc at perrl ) Lungs: Other (decrease bases) Cardiovascular: S1, S2 Abdomen: Soft, Non-tender, Other (morbidly obese) Extremities: Other (2+edema) Skin: Warm Labs Laboratory Tests Test 07/11/18 16:39 07/11/18 20:37 07/12/18 04:30 07/12/18 07:14 Glucose (Fingerstick) 130 mg/dL (70-99) 111 mg/dL (70-99) 142 mg/dL (70-99) White Blood Count 6.7 x10^3/uL (4.0-11.0) Red Blood Count 4.06 x10^6/uL (4.30-5.70) Hemoglobin 9.7 g/dL (13.0-17.5) Hematocrit 32.1 % (39.0-53.0) Mean Corpuscular Volume 79 fL (79-100) Mean Corpuscular Hemoglobin 24 pg (25-35) Mean Corpuscular Hemoglobin Concent 30 g/dL (31-37) Red Cell Distribution Width 20.8 % (11.5-14.5) Platelet Count 259 x10^3/uL (140-400) Neutrophils (%) (Auto) 58 % (31-73) Lymphocytes (%) (Auto) 16 % (24-48) Monocytes (%) (Auto) 18 % (0-9) Eosinophils (%) (Auto) 8 % (0-3) Basophils (%) (Auto) 1 % (0-3) Neutrophils # (Auto) 3.9 x10^3uL (1.8-7.7) Lymphocytes # (Auto) 1.1 x10^3/uL (1.0-4.8) Monocytes # (Auto) 1.2 x10^3/uL (0.0-1.1) Eosinophils # (Auto) 0.5 x10^3/uL (0.0-0.7) Basophils # (Auto) 0.1 x10^3/uL (0.0-0.2) Sodium Level 139 mmol/L (136-145) Potassium Level 5.1 mmol/L (3.5-5.1) Chloride Level 102 mmol/L (98-107) Carbon Dioxide Level 29 mmol/L (21-32) Anion Gap 8 (6-14) Blood Urea Nitrogen 29 mg/dL (8-26) Creatinine 1.4 mg/dL (0.7-1.3) Estimated GFR (Cockcroft-Gault) 66.0 Glucose Level 150 mg/dL (70-99) Calcium Level 9.0 mg/dL (8.5-10.1) Test 07/12/18 11:16 07/12/18 16:38 07/12/18 20:27 07/13/18 06:22 Glucose (Fingerstick) 185 mg/dL (70-99) 125 mg/dL (70-99) 205 mg/dL (70-99) Sodium Level 142 mmol/L (136-145) Potassium Level 4.6 mmol/L (3.5-5.1) Chloride Level 102 mmol/L (98-107) Carbon Dioxide Level 32 mmol/L (21-32) Anion Gap 8 (6-14) Blood Urea Nitrogen 22 mg/dL (8-26) Creatinine 1.0 mg/dL (0.7-1.3) Estimated GFR (Cockcroft-Gault) 97.3 Glucose Level 174 mg/dL (70-99) Calcium Level 8.9 mg/dL (8.5-10.1) Magnesium Level 1.8 mg/dL (1.8-2.4) Test 07/13/18 07:09 07/13/18 11:56 Glucose (Fingerstick) 162 mg/dL (70-99) 172 mg/dL (70-99) Laboratory Tests Test 07/12/18 16:38 07/12/18 20:27 07/13/18 06:22 07/13/18 07:09 Glucose (Fingerstick) 125 mg/dL (70-99) 205 mg/dL (70-99) 162 mg/dL (70-99) Sodium Level 142 mmol/L (136-145) Potassium Level 4.6 mmol/L (3.5-5.1) Chloride Level 102 mmol/L (98-107) Carbon Dioxide Level 32 mmol/L (21-32) Anion Gap 8 (6-14) Blood Urea Nitrogen 22 mg/dL (8-26) Creatinine 1.0 mg/dL (0.7-1.3) Estimated GFR (Cockcroft-Gault) 97.3 Glucose Level 174 mg/dL (70-99) Calcium Level 8.9 mg/dL (8.5-10.1) Magnesium Level 1.8 mg/dL (1.8-2.4) Test 07/13/18 11:56 Glucose (Fingerstick) 172 mg/dL (70-99) Medications Active Scripts Medications Dose Route/Sig Max Daily Dose Days Date Category Bactrim Ds Tablet (Sulfamethoxazole/Trimethoprim) 1 Each Tablet 1 Tab PO BID 07/07/18 Reported Lisinopril 20 Mg Tablet 1 Tab PO DAILY 07/07/18 Reported Clopidogrel (Clopidogrel Bisulfate) 75 Mg Tablet 1 Tab PO DAILY 07/07/18 Reported Toujeo Solostar (Insulin Glargine,Hum.rec.anlog) 300 Unit/1 Ml Insuln.pen 300 Unit SQ BID 07/07/18 Reported Metformin Hcl 1,000 Mg Tablet 1,000 Mg PO BIDWMEALS 07/07/18 Reported Singulair Tablet (Montelukast Sodium) 10 Mg Tablet 1 Tab PO DAILY 07/07/18 Reported Coreg (Carvedilol) 6.25 Mg Tablet 6.25 Mg PO BIDWMEALS 07/07/18 Reported Pravastatin Sodium 20 Mg Tablet 1 Tab PO DAILY 07/07/18 Reported Cetirizine Hcl 10 Mg Tablet 1 Tab PO DAILY 07/07/18 Reported Bumetanide 1 Mg Tablet 1 Tab PO DAILY 07/07/18 Reported Linzess (Linaclotide) 145 Mcg Capsule 145 Mcg PO DAILY07 07/07/18 Reported Dexilant (Dexlansoprazole) 60 Mg Truman. 1 Cap PO DAILY 07/07/18 Reported Doxycycline Monohydrate 100 Mg Capsule 1 Cap PO BID 07/07/18 Reported Gabapentin (Gabapentin) 300 Mg Capsule 300 Mg PO HS 30 06/04/18 Rx Cefdinir 300 Mg Capsule 300 Mg PO BID 7 06/04/18 Rx Lantus Solostar (Insulin Glargine,Hum.rec.anlog) 100 Unit/1 Ml Insuln.pen 100 Unit SQ BID 06/04/18 Rx Humalog (Insulin Lispro) 100 Unit/1 Ml Vial 70 Unit SQ TIDAC 30 06/04/18 Rx Bevespi Aerosphere Inhaler (Glycopyrrolate/Formoterol Fum) 10.7 Gm Hfa.aer.ad 10.7 Gm IH DAILY 05/31/18 Reported Wellbutrin Xl (Bupropion Hcl) 300 Mg Tab.er.24h 1 Tab PO DAILY 01/19/18 Rx Furosemide 80 Mg Tablet 80 Mg PO DAILY 30 01/19/18 Rx Duoneb 0.5-3(2.5) Mg/3 Ml (Albuterol/Ipratropium) 3 Ml Ampul.neb 3 Ml NEB RTQID 30 01/19/18 Rx Carvedilol (Carvedilol) 6.25 Mg Tablet 1 Tab PO BID 01/15/18 Reported Pravastatin Sodium 20 Mg Tablet 1 Tab PO QHS 01/15/18 Reported Singulair Tablet (Montelukast Sodium) 10 Mg Tablet 10 Mg PO HS 01/15/18 Reported Famotidine 20 Mg Tablet 20 Mg PO HS 01/15/18 Reported Dexilant (Dexlansoprazole) 60 Mg Cap.mp 1 Cap PO DAILY 01/15/18 Reported Linzess (Linaclotide) 145 Mcg Capsule 145 Mcg PO DAILY 01/15/18 Reported Glucophage (Metformin Hcl) 1,000 Mg Tablet 1,000 Mg PO BIDWMEALS 04/04/17 Rx Lisinopril 20 Mg Tablet 20 Mg PO DAILY 04/04/17 Rx Aspirin Ec (Aspirin) 81 Mg Tablet. 81 Mg PO DAILYWBKFT 04/04/17 Rx Impression . 1. Acute hypoxic respiratory failure secondary to multifactorial etiologies includes combination of underlying chronic obstructive pulmonary disease with exacerbation, acute on chronic systolic heart failure with an ejection fraction now of of 15-20% and 75-pound weight gain in the last 6 months. 2. Abnormal previous CT chest and chest x-ray with bilateral interstitial infiltrates. This is a patient with severe cardiomyopathy and a two-vessel percutaneous coronary intervention done last year. I suspect ongoing systolic heart failure and less likely ILD. 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 Obstructive sleep apnea, Not able to pickling solution maker CPAP yet. Poor compliance 4. Lower extremity cellulitis and lymphedema. 5. Morbid obesity. 6. Severe cardiomyopathy with previous echo with an ejection fraction of 15-20% and status post percutaneous coronary intervention of right coronary artery. 7. H/O Severe RICHY 8. CKD Plan . 1. Discussed with the patient the importance of losing weight. gained 75 pounds in the last 6 months. 2. Continue present oxygen. 3. lasix drip, monitor renal function/ Dobutamine drip per cardiology 4. empiric CPAP qhs in the hospital, the importance of richy tx discussed, advised to use cpap during sleep. 5. follow cardiology rec 6. Set up CPAP as an outpatient. 7. Smoking cessation counseling provided. 8. CT chest reviewed. Not sig changed from previous one/ suspect ongoing mild CHF 9. f/u cxr in am LORI Randolph pt, MD Jul 13, 2018 13:02
--- NOTE | 2018-07-13 13:18 | PDOC ---
JUANY PETERS [employer]IMAL [employer] 07/13/18 1318: CARDIO Progress Notes Date and Time Date of Service 07/13/18 Time of Evaluation 1110 Subjective Subjective: No Chest Pain, No Palpitations, Other (breathing, edema improved) Vitals Vitals Vital Signs Date Time Temp Pulse Resp B/P (MAP) Pulse Ox O2 Delivery O2 Flow Rate FiO2 07/13/18 12:03 93 Room Air 07/13/18 11:08 97.9 111 20 133/52 (79) 4.0 97.9 Weight Weight [ ] Input and Output Intake and Output Intake and Output 07/13/18 07:00 Intake Total 1280 ml Output Total 6975 ml Balance -5695 ml Intake Oral 940 ml IV Total 340 ml Output Urine Total 6975 ml Laboratory Labs Laboratory Tests Test 07/12/18 16:38 07/12/18 20:27 07/13/18 06:22 07/13/18 07:09 Glucose (Fingerstick) 125 mg/dL (70-99) 205 mg/dL (70-99) 162 mg/dL (70-99) Sodium Level 142 mmol/L (136-145) Potassium Level 4.6 mmol/L (3.5-5.1) Chloride Level 102 mmol/L (98-107) Carbon Dioxide Level 32 mmol/L (21-32) Anion Gap 8 (6-14) Blood Urea Nitrogen 22 mg/dL (8-26) Creatinine 1.0 mg/dL (0.7-1.3) Estimated GFR (Cockcroft-Gault) 97.3 Glucose Level 174 mg/dL (70-99) Calcium Level 8.9 mg/dL (8.5-10.1) Magnesium Level 1.8 mg/dL (1.8-2.4) Test 07/13/18 11:56 Glucose (Fingerstick) 172 mg/dL (70-99) Microbiology Micro Microbiology 07/07/18 Blood Culture - Final, Complete NO GROWTH AFTER 5 DAYS Physical Exam HEENT: Neck Supple W Full Motion Chest: Symmetric LUNGS: Other (diminished bases) Heart: S1S2, RRR (SR ), other (distante heart sounds) Abdomen: Other (anasarca, mild) Extremities: Other (1-2+ bilateral edema from knees up) Neurology: alert, oriented, follow commands Assessment Assessment 1. Acute on chronic combined systolic/diastolic CHF 2. Anasarca; good UOP. improved, but remains with LE and abdominal swelling 3. ICM: LVEF 15-20% 4. NURY; improved 5. CAD 6. Non-compliance 7. HTN: controlled 8. DM2/HLP 9. Morbid obesity Recommendations Continue aggressive fluid off-loading with lasix gtt and dobutamine TISH PONCE MD 07/13/18 1723: CARDIO Progress Notes Plan Plan Pt. seen and examined. Agree with above OIL PRODUCER note. I had a long discussion with him about dietary intake and limits. JUANY PETERS APRN Jul 13, 2018 13:18 TISH PONCE MD Jul 13, 2018 17:23
[2018-07-13 15:02] VITALS: BP 141/72
[2018-07-13 19:40] VITALS: BP 142/70
[2018-07-13] MEDS: FUROSEMIDE INJ 100 MG in IV NORMAL SALINE 100ML 100 ML IV PRN (21:38)
[2018-07-13] MEDS: MONTELUKAST SODIUM 10 MG TABLET. PO SCH (21:39)
[2018-07-13] MEDS: tiZANidine 4 MG TABLET. PO PRN (21:39)
[2018-07-13] MEDS: CEFDINIR 300 MG CAPSULE PO SCH (21:39)
[2018-07-13] MEDS: FAMOTIDINE 20 MG TABLET. PO SCH (21:39)
[2018-07-13] MEDS: ATORVASTATIN CALCIUM 10 MG TABLET. PO SCH (21:39)
[2018-07-13 22:52] VITALS: BP 161/62
[2018-07-13] MEDS: ZOLPIDEM 5 MG TABLET. PO PRN (23:01)
[2018-07-14] VITALS (7 sets, daily range): BP systolic 104–133; BP diastolic 55–85
--- NOTE | 2018-07-14 05:10 | NUR ---
Pt was non-compliant with cpap and O2 demands throughout shift. Educated patient about importance of oxygen demands and pt is non-compliant with expectations and POC. VSS, call light within reach, bed in low/locked position, will continue to monitor for status changes.
[2018-07-14 05:17] LABS: BASO # 0.1 x10^3/uL (0.0-0.2); BASO % 1 % (0-3); EOS # 0.6 x10^3/uL (0.0-0.7); EOS % 7 % (0-3); HEMATOCRIT 33.6 % (39.0-53.0); HEMOGLOBIN 10.4 g/dL (13.0-17.5); LYMPH # 1.2 x10^3/uL (1.0-4.8); LYMPH % 16 % (24-48); MEAN CORPUSCULAR HEMOGLOBIN 24 pg (25-35); MEAN CORPUSCULAR HGB CONC 31 g/dL (31-37); MEAN CORPUSCULAR VOLUME 78 fL (79-100); MONO # 1.2 x10^3/uL (0.0-1.1); MONO % 16 % (0-9); NEUT # 4.5 x10^3uL (1.8-7.7); NEUT % 60 % (31-73); PLATELET COUNT 251 x10^3/uL (140-400); RED CELL DISTRIBUTION WIDTH 20.1 % (11.5-14.5); WHITE BLOOD COUNT 7.6 x10^3/uL (4.0-11.0)
[2018-07-14 06:03] LABS: ALBUMIN 2.8 g/dL (3.4-5.0); ALBUMIN/GLOBULIN RATIO 0.5 (1.0-1.7); CALCIUM 8.7 mg/dL (8.5-10.1); GFR 97.3; MAGNESIUM 1.6 mg/dL (1.8-2.4); POTASSIUM 3.9 mmol/L (3.5-5.1); TOTAL BILIRUBIN 0.7 mg/dL (0.2-1.0); TOTAL PROTEIN 8.4 g/dL (6.4-8.2)
[2018-07-14] MEDS: ASPIRIN ENTERIC COATED 81 MG TABLET.DR. PO SCH (08:00)
[2018-07-14] MEDS: IPRATRPIUM/ALBUTEROL 0.5/2.5MG 3 ML NEBU. NEB SCH ×4 (08:00→19:35)
[2018-07-14] MEDS: BUDESONIDE 0.5 MG/2 ML NEBU. NEB SCH ×2 (08:00→19:35)
--- NOTE | 2018-07-14 08:20 | RAD ---
Chest radiograph 07/14/2018 8:00 AM INDICATION: CHF COMPARISON: July 08, 2018 TECHNIQUE: Portable upright frontal view of the chest is provided. FINDINGS: The cardiomediastinal silhouette is enlarged, stable. There is mild pulmonary vascular congestion which appears similar. No pleural effusions or pneumothorax. IMPRESSION: Constellation of findings is suggestive of mild congestive heart failure without significant interval change. Electronically signed by: Arlene Palomo MD (07/14/2018 8:18 AM) [id number]
[2018-07-14] MEDS: LACTOBACILLUS RHAMNOSUS GG 1 CAPSULE. PO SCH ×2 (08:29→21:21)
[2018-07-14] MEDS: GABAPENTIN 300 MG CAPSULE. PO SCH ×3 (08:29→21:21)
[2018-07-14] MEDS: buPROPion XL 150 MG TAB.ER.24H. PO SCH (08:29)
--- NOTE | 2018-07-14 08:34 | PDOC ---
PULMONARY PROGRESS NOTES Subjective sob better, no cough, no pain Vitals Vital Signs Date Time Temp Pulse Resp B/P (MAP) Pulse Ox O2 Delivery O2 Flow Rate FiO2 07/14/18 02:26 98.2 115 18 128/67 (87) 95 Room Air 98.2 07/13/18 23:01 3.0 General: Alert, No acute distress HEENT: Other (nc at perrl ) Lungs: Other (decrease bases) Cardiovascular: S1, S2 Abdomen: Soft, Non-tender, Other (morbidly obese) Extremities: Other (2+edema) Skin: Warm Labs Laboratory Tests Test 07/12/18 11:16 07/12/18 16:38 07/12/18 20:27 07/13/18 06:22 Glucose (Fingerstick) 185 mg/dL (70-99) 125 mg/dL (70-99) 205 mg/dL (70-99) Sodium Level 142 mmol/L (136-145) Potassium Level 4.6 mmol/L (3.5-5.1) Chloride Level 102 mmol/L (98-107) Carbon Dioxide Level 32 mmol/L (21-32) Anion Gap 8 (6-14) Blood Urea Nitrogen 22 mg/dL (8-26) Creatinine 1.0 mg/dL (0.7-1.3) Estimated GFR (Cockcroft-Gault) 97.3 Glucose Level 174 mg/dL (70-99) Calcium Level 8.9 mg/dL (8.5-10.1) Magnesium Level 1.8 mg/dL (1.8-2.4) Test 07/13/18 07:09 07/13/18 11:56 07/13/18 16:36 07/13/18 21:08 Glucose (Fingerstick) 162 mg/dL (70-99) 172 mg/dL (70-99) 178 mg/dL (70-99) 139 mg/dL (70-99) Test 07/14/18 04:20 07/14/18 08:03 White Blood Count 7.6 x10^3/uL (4.0-11.0) Red Blood Count 4.30 x10^6/uL (4.30-5.70) Hemoglobin 10.4 g/dL (13.0-17.5) Hematocrit 33.6 % (39.0-53.0) Mean Corpuscular Volume 78 fL (79-100) Mean Corpuscular Hemoglobin 24 pg (25-35) Mean Corpuscular Hemoglobin Concent 31 g/dL (31-37) Red Cell Distribution Width 20.1 % (11.5-14.5) Platelet Count 251 x10^3/uL (140-400) Neutrophils (%) (Auto) 60 % (31-73) Lymphocytes (%) (Auto) 16 % (24-48) Monocytes (%) (Auto) 16 % (0-9) Eosinophils (%) (Auto) 7 % (0-3) Basophils (%) (Auto) 1 % (0-3) Neutrophils # (Auto) 4.5 x10^3uL (1.8-7.7) Lymphocytes # (Auto) 1.2 x10^3/uL (1.0-4.8) Monocytes # (Auto) 1.2 x10^3/uL (0.0-1.1) Eosinophils # (Auto) 0.6 x10^3/uL (0.0-0.7) Basophils # (Auto) 0.1 x10^3/uL (0.0-0.2) Sodium Level 138 mmol/L (136-145) Potassium Level 3.9 mmol/L (3.5-5.1) Chloride Level 99 mmol/L (98-107) Carbon Dioxide Level 29 mmol/L (21-32) Anion Gap 10 (6-14) Blood Urea Nitrogen 23 mg/dL (8-26) Creatinine 1.0 mg/dL (0.7-1.3) Estimated GFR (Cockcroft-Gault) 97.3 BUN/Creatinine Ratio 23 (6-20) Glucose Level 177 mg/dL (70-99) Calcium Level 8.7 mg/dL (8.5-10.1) Magnesium Level 1.6 mg/dL (1.8-2.4) Total Bilirubin 0.7 mg/dL (0.2-1.0) Aspartate Amino Transf (AST/SGOT) 33 U/L (15-37) Alanine Aminotransferase (ALT/SGPT) 25 U/L (16-63) Alkaline Phosphatase 211 U/L (46-116) Total Protein 8.4 g/dL (6.4-8.2) Albumin 2.8 g/dL (3.4-5.0) Albumin/Globulin Ratio 0.5 (1.0-1.7) Glucose (Fingerstick) 161 mg/dL (70-99) Laboratory Tests Test 07/13/18 11:56 07/13/18 16:36 07/13/18 21:08 07/14/18 04:20 Glucose (Fingerstick) 172 mg/dL (70-99) 178 mg/dL (70-99) 139 mg/dL (70-99) White Blood Count 7.6 x10^3/uL (4.0-11.0) Red Blood Count 4.30 x10^6/uL (4.30-5.70) Hemoglobin 10.4 g/dL (13.0-17.5) Hematocrit 33.6 % (39.0-53.0) Mean Corpuscular Volume 78 fL (79-100) Mean Corpuscular Hemoglobin 24 pg (25-35) Mean Corpuscular Hemoglobin Concent 31 g/dL (31-37) Red Cell Distribution Width 20.1 % (11.5-14.5) Platelet Count 251 x10^3/uL (140-400) Neutrophils (%) (Auto) 60 % (31-73) Lymphocytes (%) (Auto) 16 % (24-48) Monocytes (%) (Auto) 16 % (0-9) Eosinophils (%) (Auto) 7 % (0-3) Basophils (%) (Auto) 1 % (0-3) Neutrophils # (Auto) 4.5 x10^3uL (1.8-7.7) Lymphocytes # (Auto) 1.2 x10^3/uL (1.0-4.8) Monocytes # (Auto) 1.2 x10^3/uL (0.0-1.1) Eosinophils # (Auto) 0.6 x10^3/uL (0.0-0.7) Basophils # (Auto) 0.1 x10^3/uL (0.0-0.2) Sodium Level 138 mmol/L (136-145) Potassium Level 3.9 mmol/L (3.5-5.1) Chloride Level 99 mmol/L (98-107) Carbon Dioxide Level 29 mmol/L (21-32) Anion Gap 10 (6-14) Blood Urea Nitrogen 23 mg/dL (8-26) Creatinine 1.0 mg/dL (0.7-1.3) Estimated GFR (Cockcroft-Gault) 97.3 BUN/Creatinine Ratio 23 (6-20) Glucose Level 177 mg/dL (70-99) Calcium Level 8.7 mg/dL (8.5-10.1) Magnesium Level 1.6 mg/dL (1.8-2.4) Total Bilirubin 0.7 mg/dL (0.2-1.0) Aspartate Amino Transf (AST/SGOT) 33 U/L (15-37) Alanine Aminotransferase (ALT/SGPT) 25 U/L (16-63) Alkaline Phosphatase 211 U/L (46-116) Total Protein 8.4 g/dL (6.4-8.2) Albumin 2.8 g/dL (3.4-5.0) Albumin/Globulin Ratio 0.5 (1.0-1.7) Test 07/14/18 08:03 Glucose (Fingerstick) 161 mg/dL (70-99) Medications Active Scripts Medications Dose Route/Sig Max Daily Dose Days Date Category Bactrim Ds Tablet (Sulfamethoxazole/Trimethoprim) 1 Each Tablet 1 Tab PO BID 07/07/18 Reported Lisinopril 20 Mg Tablet 1 Tab PO DAILY 07/07/18 Reported Clopidogrel (Clopidogrel Bisulfate) 75 Mg Tablet 1 Tab PO DAILY 07/07/18 Reported Touedlfinoo Solostar (Insulin Glargine,Hum.rec.anlog) 300 Unit/1 Ml Insuln.pen 300 Unit SQ BID 07/07/18 Reported Metformin Hcl 1,000 Mg Tablet 1,000 Mg PO BIDWMEALS 07/07/18 Reported Singulair Tablet (Montelukast Sodium) 10 Mg Tablet 1 Tab PO DAILY 07/07/18 Reported Coreg (Carvedilol) 6.25 Mg Tablet 6.25 Mg PO BIDWMEALS 07/07/18 Reported Pravastatin Sodium 20 Mg Tablet 1 Tab PO DAILY 07/07/18 Reported Cetirizine Hcl 10 Mg Tablet 1 Tab PO DAILY 07/07/18 Reported Bumetanide 1 Mg Tablet 1 Tab PO DAILY 07/07/18 Reported Linzess (Linaclotide) 145 Mcg Capsule 145 Mcg PO DAILY07 07/07/18 Reported Dexilant (Dexlansoprazole) 60 Mg Cap. 1 Cap PO DAILY 07/07/18 Reported Doxycycline Monohydrate 100 Mg Capsule 1 Cap PO BID 07/07/18 Reported Gabapentin (Gabapentin) 300 Mg Capsule 300 Mg PO HS 30 06/04/18 Rx Cefdinir 300 Mg Capsule 300 Mg PO BID 7 06/04/18 Rx Lantus Solostar (Insulin Glargine,Hum.rec.anlog) 100 Unit/1 Ml Insuln.pen 100 Unit SQ BID 06/04/18 Rx Humalog (Insulin Lispro) 100 Unit/1 Ml Vial 70 Unit SQ TIDAC 30 06/04/18 Rx Bevespi Aerosphere Inhaler (Glycopyrrolate/Formoterol Fum) 10.7 Gm Hfa.aer.ad 10.7 Gm IH DAILY 05/31/18 Reported Wellbutrin Xl (Bupropion Hcl) 300 Mg Tab.er.24h 1 Tab PO DAILY 01/19/18 Rx Furosemide 80 Mg Tablet 80 Mg PO DAILY 30 01/19/18 Rx Duoneb 0.5-3(2.5) Mg/3 Ml (Albuterol/Ipratropium) 3 Ml Ampul.neb 3 Ml NEB RTQID 30 01/19/18 Rx Carvedilol (Carvedilol) 6.25 Mg Tablet 1 Tab PO BID 01/15/18 Reported Pravastatin Sodium 20 Mg Tablet 1 Tab PO QHS 01/15/18 Reported Singulair Tablet (Montelukast Sodium) 10 Mg Tablet 10 Mg PO HS 01/15/18 Reported Famotidine 20 Mg Tablet 20 Mg PO HS 01/15/18 Reported Dexilant (Dexlansoprazole) 60 Mg Cap. 1 Cap PO DAILY 01/15/18 Reported Linzess (Linaclotide) 145 Mcg Capsule 145 Mcg PO DAILY 01/15/18 Reported Glucophage (Metformin Hcl) 1,000 Mg Tablet 1,000 Mg PO BIDWMEALS 04/04/17 Rx Lisinopril 20 Mg Tablet 20 Mg PO DAILY 04/04/17 Rx Aspirin Ec (Aspirin) 81 Mg Tablet. 81 Mg PO DAILYWBKFT 04/04/17 Rx Impression . 1. Acute hypoxic respiratory failure secondary to multifactorial etiologies includes combination of underlying chronic obstructive pulmonary disease with exacerbation, acute on chronic systolic heart failure with an ejection fraction now of of 15-20% and 75-pound weight gain in the last 6 months. 2. Abnormal previous CT chest and chest x-ray with bilateral interstitial infiltrates. This is a patient with severe cardiomyopathy and a two-vessel percutaneous coronary intervention done last year. I suspect ongoing systolic heart failure and less likely ILD. 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 Obstructive sleep apnea, Not able to sweet pickle maker CPAP yet. Poor compliance 4. Lower extremity cellulitis and lymphedema. 5. Morbid obesity. 6. Severe cardiomyopathy with previous echo with an ejection fraction of 15-20% and status post percutaneous coronary intervention of right coronary artery. 7. H/O Severe KAT[place]USKA 8. CKD Plan . 1. Discussed with the patient the importance of losing weight. gained 75 pounds in the last 6 months. 2. Continue present oxygen. 3. lasix drip, monitor renal function/ Dobutamine drip per cardiology 4. empiric CPAP qhs in the hospital, the importance of [place] tx discussed, advised to use cpap during sleep. 5. follow cardiology rec 6. Set up CPAP as an outpatient. 7. Smoking cessation counseling provided. 8. CT chest reviewed. Not sig changed from previous one/ suspect ongoing mild CHF 9. f/u cxr in am discussed w pt PHILIP CABALLERO MD Jul 14, 2018 08:34
[2018-07-14] MEDS: LISINOPRIL 20 MG TABLET PO SCH (08:35)
[2018-07-14] MEDS: CEFDINIR 300 MG CAPSULE PO SCH ×2 (08:36→21:21)
[2018-07-14] MEDS: FLUCONAZOLE 100 MG TABLET. PO SCH (08:36)
[2018-07-14] MEDS: NICOTINE 21MG PATCH. TD SCH ×2 (08:36→09:15)
[2018-07-14] MEDS: CARVEDILOL 6.25 MG TABLET. PO SCH ×2 (08:37→16:32)
[2018-07-14] MEDS: PANTOPRAZOLE 40 MG TABLET.DR. PO SCH (08:37)
[2018-07-14] MEDS: CETIRIZINE HCL 10 MG TABLET. PO SCH (08:37)
[2018-07-14] MEDS: CLOPIDOGREL BISULFATE 75 MG TABLET PO SCH (08:37)
[2018-07-14] MEDS: INSULIN LISPRO 300 UNITS/3 ML INSULN.PEN. SQ SCH ×3 (08:46→17:31)
[2018-07-14] MEDS: DICLOFENAC SODIUM 1% TOPICAL GEL 100GM TUBE. TP SCH ×2 (09:00→21:21)
[2018-07-14] MEDS: HYDROcodone/APAP 10/325 1 TAB TABLET PO PRN ×3 (09:10→22:59)
[2018-07-14] MEDS: metOLazone 2.5 MG TABLET PO SCH (09:10)
[2018-07-14] MEDS: INSULIN GLARGINE 300 UNITS/3 ML INSULN.PEN. SQ SCH ×2 (09:15→21:25)
--- NOTE | 2018-07-14 09:27 | PDOC ---
Infectious Disease Note Subjective Subjective feeling better ROS ROS no n/v/d/sob Vital Sign Vital Signs Vital Signs Date Time Temp Pulse Resp B/P (MAP) Pulse Ox O2 Delivery O2 Flow Rate FiO2 07/14/18 08:42 97.9 104 20 133/83 (100) 96 Nasal Cannula 3.0 97.9 Physical Exam PHYSICAL EXAM GENERAL: Sitting in hte chair, alert, relaxed appearance HEENT: Pupils equal and reactive. Oral cavity, pharynx is clear. NECK: Supple. LUNGS: Clear to auscultation. HEART: S1, S2. ABDOMEN: Morbidly obese, soft, no guarding, no rebound. He has got some pitting thickness of his lower extremity abdominal area EXTREMITIES: No clubbing, cyanosis. Chronic swelling of the bilateral lower extremities, left greater than right and also had some fullness and thickening of groin tissue of his left thigh. SKIN: Otherwise warm to touch without signs of rash. NEUROLOGIC: Nonfocal and appropriate. PIV Labs Lab Laboratory Tests Test 07/13/18 11:56 07/13/18 16:36 07/13/18 21:08 07/14/18 04:20 Glucose (Fingerstick) 172 mg/dL (70-99) 178 mg/dL (70-99) 139 mg/dL (70-99) White Blood Count 7.6 x10^3/uL (4.0-11.0) Red Blood Count 4.30 x10^6/uL (4.30-5.70) Hemoglobin 10.4 g/dL (13.0-17.5) Hematocrit 33.6 % (39.0-53.0) Mean Corpuscular Volume 78 fL (79-100) Mean Corpuscular Hemoglobin 24 pg (25-35) Mean Corpuscular Hemoglobin Concent 31 g/dL (31-37) Red Cell Distribution Width 20.1 % (11.5-14.5) Platelet Count 251 x10^3/uL (140-400) Neutrophils (%) (Auto) 60 % (31-73) Lymphocytes (%) (Auto) 16 % (24-48) Monocytes (%) (Auto) 16 % (0-9) Eosinophils (%) (Auto) 7 % (0-3) Basophils (%) (Auto) 1 % (0-3) Neutrophils # (Auto) 4.5 x10^3uL (1.8-7.7) Lymphocytes # (Auto) 1.2 x10^3/uL (1.0-4.8) Monocytes # (Auto) 1.2 x10^3/uL (0.0-1.1) Eosinophils # (Auto) 0.6 x10^3/uL (0.0-0.7) Basophils # (Auto) 0.1 x10^3/uL (0.0-0.2) Sodium Level 138 mmol/L (136-145) Potassium Level 3.9 mmol/L (3.5-5.1) Chloride Level 99 mmol/L (98-107) Carbon Dioxide Level 29 mmol/L (21-32) Anion Gap 10 (6-14) Blood Urea Nitrogen 23 mg/dL (8-26) Creatinine 1.0 mg/dL (0.7-1.3) Estimated GFR (Cockcroft-Gault) 97.3 BUN/Creatinine Ratio 23 (6-20) Glucose Level 177 mg/dL (70-99) Calcium Level 8.7 mg/dL (8.5-10.1) Magnesium Level 1.6 mg/dL (1.8-2.4) Total Bilirubin 0.7 mg/dL (0.2-1.0) Aspartate Amino Transf (AST/SGOT) 33 U/L (15-37) Alanine Aminotransferase (ALT/SGPT) 25 U/L (16-63) Alkaline Phosphatase 211 U/L (46-116) Total Protein 8.4 g/dL (6.4-8.2) Albumin 2.8 g/dL (3.4-5.0) Albumin/Globulin Ratio 0.5 (1.0-1.7) Test 07/14/18 08:03 Glucose (Fingerstick) 161 mg/dL (70-99) Micro Microbiology 07/07/18 Blood Culture - Final, Complete NO GROWTH AFTER 5 DAYS Objective Assessment Left upper thigh cellulitis/yeast vs fluid retention - normal Procalcitonin NURY - stable Fluid overload Augmentin allergy - rash Morbid Obesity DM Plan Plan of Care omnicef and Fluconazole off Zyvox and Flagyl Probiotics Diuresis BC NGTD CUCO TRENT MD Jul 14, 2018 09:27
--- NOTE | 2018-07-14 09:40 | PDOC ---
IM PROGRESS NOTES- Subjective Subjective No complaints of dyspnea or chest pains. Patient states that the he had drank 6 L of fluids yesterday. Objective Vitals Vital Signs Date Time Temp Pulse Resp B/P (MAP) Pulse Ox O2 Delivery O2 Flow Rate FiO2 07/14/18 08:42 97.9 104 20 133/83 (100) 96 Nasal Cannula 3.0 97.9 Input & Output Intake and Output 07/14/18 06:59 Intake Total 2941 ml Output Total 6190 ml Balance -3249 ml Intake Oral 1670 ml IV Total 1271 ml Output Urine Total 6190 ml # Voids 1 Physical Exam Physical Exam General appearance - alert,ill appearing, and in mild distress and oriented to person, place, and time Mental Status - alert, oriented to person, place, and time, affect appropriate to mood Head - normal Chest -decreased breath sounds at bases Heart - S1 and S2 normal Abdomen - soft, nontender, nondistended, no masses or organomegaly. Patient has a large pannus with edema of the abdomen and thighs Neurological - alert and oriented Musculoskeletal - no muscular tenderness noted Extremities - edema decreased Skin - warm and dry Labs Laboratory Tests Test 07/12/18 11:16 07/12/18 16:38 07/12/18 20:27 07/13/18 06:22 Glucose (Fingerstick) 185 mg/dL (70-99) 125 mg/dL (70-99) 205 mg/dL (70-99) Sodium Level 142 mmol/L (136-145) Potassium Level 4.6 mmol/L (3.5-5.1) Chloride Level 102 mmol/L (98-107) Carbon Dioxide Level 32 mmol/L (21-32) Anion Gap 8 (6-14) Blood Urea Nitrogen 22 mg/dL (8-26) Creatinine 1.0 mg/dL (0.7-1.3) Estimated GFR (Cockcroft-Gault) 97.3 Glucose Level 174 mg/dL (70-99) Calcium Level 8.9 mg/dL (8.5-10.1) Magnesium Level 1.8 mg/dL (1.8-2.4) Test 07/13/18 07:09 07/13/18 11:56 07/13/18 16:36 07/13/18 21:08 Glucose (Fingerstick) 162 mg/dL (70-99) 172 mg/dL (70-99) 178 mg/dL (70-99) 139 mg/dL (70-99) Test 07/14/18 04:20 07/14/18 08:03 White Blood Count 7.6 x10^3/uL (4.0-11.0) Red Blood Count 4.30 x10^6/uL (4.30-5.70) Hemoglobin 10.4 g/dL (13.0-17.5) Hematocrit 33.6 % (39.0-53.0) Mean Corpuscular Volume 78 fL (79-100) Mean Corpuscular Hemoglobin 24 pg (25-35) Mean Corpuscular Hemoglobin Concent 31 g/dL (31-37) Red Cell Distribution Width 20.1 % (11.5-14.5) Platelet Count 251 x10^3/uL (140-400) Neutrophils (%) (Auto) 60 % (31-73) Lymphocytes (%) (Auto) 16 % (24-48) Monocytes (%) (Auto) 16 % (0-9) Eosinophils (%) (Auto) 7 % (0-3) Basophils (%) (Auto) 1 % (0-3) Neutrophils # (Auto) 4.5 x10^3uL (1.8-7.7) Lymphocytes # (Auto) 1.2 x10^3/uL (1.0-4.8) Monocytes # (Auto) 1.2 x10^3/uL (0.0-1.1) Eosinophils # (Auto) 0.6 x10^3/uL (0.0-0.7) Basophils # (Auto) 0.1 x10^3/uL (0.0-0.2) Sodium Level 138 mmol/L (136-145) Potassium Level 3.9 mmol/L (3.5-5.1) Chloride Level 99 mmol/L (98-107) Carbon Dioxide Level 29 mmol/L (21-32) Anion Gap 10 (6-14) Blood Urea Nitrogen 23 mg/dL (8-26) Creatinine 1.0 mg/dL (0.7-1.3) Estimated GFR (Cockcroft-Gault) 97.3 BUN/Creatinine Ratio 23 (6-20) Glucose Level 177 mg/dL (70-99) Calcium Level 8.7 mg/dL (8.5-10.1) Magnesium Level 1.6 mg/dL (1.8-2.4) Total Bilirubin 0.7 mg/dL (0.2-1.0) Aspartate Amino Transf (AST/SGOT) 33 U/L (15-37) Alanine Aminotransferase (ALT/SGPT) 25 U/L (16-63) Alkaline Phosphatase 211 U/L (46-116) Total Protein 8.4 g/dL (6.4-8.2) Albumin 2.8 g/dL (3.4-5.0) Albumin/Globulin Ratio 0.5 (1.0-1.7) Glucose (Fingerstick) 161 mg/dL (70-99) Laboratory Tests Test 07/13/18 11:56 07/13/18 16:36 07/13/18 21:08 07/14/18 04:20 Glucose (Fingerstick) 172 mg/dL (70-99) 178 mg/dL (70-99) 139 mg/dL (70-99) White Blood Count 7.6 x10^3/uL (4.0-11.0) Red Blood Count 4.30 x10^6/uL (4.30-5.70) Hemoglobin 10.4 g/dL (13.0-17.5) Hematocrit 33.6 % (39.0-53.0) Mean Corpuscular Volume 78 fL (79-100) Mean Corpuscular Hemoglobin 24 pg (25-35) Mean Corpuscular Hemoglobin Concent 31 g/dL (31-37) Red Cell Distribution Width 20.1 % (11.5-14.5) Platelet Count 251 x10^3/uL (140-400) Neutrophils (%) (Auto) 60 % (31-73) Lymphocytes (%) (Auto) 16 % (24-48) Monocytes (%) (Auto) 16 % (0-9) Eosinophils (%) (Auto) 7 % (0-3) Basophils (%) (Auto) 1 % (0-3) Neutrophils # (Auto) 4.5 x10^3uL (1.8-7.7) Lymphocytes # (Auto) 1.2 x10^3/uL (1.0-4.8) Monocytes # (Auto) 1.2 x10^3/uL (0.0-1.1) Eosinophils # (Auto) 0.6 x10^3/uL (0.0-0.7) Basophils # (Auto) 0.1 x10^3/uL (0.0-0.2) Sodium Level 138 mmol/L (136-145) Potassium Level 3.9 mmol/L (3.5-5.1) Chloride Level 99 mmol/L (98-107) Carbon Dioxide Level 29 mmol/L (21-32) Anion Gap 10 (6-14) Blood Urea Nitrogen 23 mg/dL (8-26) Creatinine 1.0 mg/dL (0.7-1.3) Estimated GFR (Cockcroft-Gault) 97.3 BUN/Creatinine Ratio 23 (6-20) Glucose Level 177 mg/dL (70-99) Calcium Level 8.7 mg/dL (8.5-10.1) Magnesium Level 1.6 mg/dL (1.8-2.4) Total Bilirubin 0.7 mg/dL (0.2-1.0) Aspartate Amino Transf (AST/SGOT) 33 U/L (15-37) Alanine Aminotransferase (ALT/SGPT) 25 U/L (16-63) Alkaline Phosphatase 211 U/L (46-116) Total Protein 8.4 g/dL (6.4-8.2) Albumin 2.8 g/dL (3.4-5.0) Albumin/Globulin Ratio 0.5 (1.0-1.7) Test 07/14/18 08:03 Glucose (Fingerstick) 161 mg/dL (70-99) Meds Current Medications Cefdinir (Omnicef) 300 mg BID PO Last administered on 07/14/18at 08:36; Start 07/13/18 at 21:00 Fluconazole (Diflucan) 200 mg DAILY PO Last administered on 07/14/18at 08:36; Start 07/14/18 at 09:00 Magnesium Sulfate/ Dextrose 100 ml @ 25 mls/hr 1X ONCE IV ; Start 07/14/18 at 10:00; Stop 07/14/18 at 13:59 Assessment Assessment Problems Medical Problems: (1) Bilateral lower leg cellulitis Status: Acute IMPRESSION: 1. Possible cellulitis of the lower extremities. 2. Chronic edema of both lower extremities and lymphedema. 3. 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 4. Respiratory failure, hypoxic. 5. Morbid obesity. 6. Obstructive sleep apnea, CPAP, noncompliant. 7. Diabetes mellitus type 2, insulin-dependent, noncompliant. 8. Chronic obstructive pulmonary disease. 9. Hyperkalemia. 10. Slow transit constipation. 11. Osteoarthritis of both knees. 12. Physical deconditioning. 13. History of right lower lung nodule. 14. Gastroesophageal reflux disease with esophagitis. 15. Mixed hyperlipidemia. 16. Noncompliance. 17. Anemia of chronic disease. 18. Coronary artery disease with 2-vessel coronary artery disease status post drug-eluting stent of the right coronary artery on 04/03/2017. PLAN: His admission weight was 475 pounds now it is 434 pounds. on iv lasix drip+ dobutamine drip continue Neurontin and tizanidine for muscle spasms. Potassium is 4.6 today magnesium is pending. echo 15%. renal consult. monitor kidney function continue consultation with Dr. Valladares and Dr. Boggs morbid obesity. rehab consult appreciated discussed with Dr. Willis. Hold off on injections in the knees. fluid restriction extensively discussed with the patient and the family. Noncompliance Hypomagnesemia- replace Plan Plan For more details regarding further plans, please refer to the orders. PADDY LINCOLN MD Jul 14, 2018 09:40
--- NOTE | 2018-07-14 09:54 | PDOC ---
PROGRESS NOTES Subjective Subjective He admits continued knee and low back and hip pain. Objective Objective Vital Signs Date Time Temp Pulse Resp B/P (MAP) Pulse Ox O2 Delivery O2 Flow Rate FiO2 07/14/18 08:42 97.9 104 20 133/83 (100) 96 Nasal Cannula 3.0 97.9 Intake and Output 07/14/18 07:00 Intake Total 2941 ml Output Total 6190 ml Balance -3249 ml Intake Oral 1670 ml IV Total 1271 ml Output Urine Total 6190 ml # Voids 1 Physical Exam Physical Exam He is sitting in bedside chair and he did walk for 150' with roller walker with physical therapy yesterday with some rest breaks. Assessment Assessment Problems Medical Problems: (1) Bilateral lower leg cellulitis Status: Acute Plan Plan of Care To continue present physical and occupational therapy follow up as tolerated. Comment Review of Relevant I have reviewed the following items mukund (where applicable) has been applied. Labs Laboratory Tests Test 07/12/18 11:16 07/12/18 16:38 07/12/18 20:27 07/13/18 06:22 Glucose (Fingerstick) 185 mg/dL (70-99) 125 mg/dL (70-99) 205 mg/dL (70-99) Sodium Level 142 mmol/L (136-145) Potassium Level 4.6 mmol/L (3.5-5.1) Chloride Level 102 mmol/L (98-107) Carbon Dioxide Level 32 mmol/L (21-32) Anion Gap 8 (6-14) Blood Urea Nitrogen 22 mg/dL (8-26) Creatinine 1.0 mg/dL (0.7-1.3) Estimated GFR (Cockcroft-Gault) 97.3 Glucose Level 174 mg/dL (70-99) Calcium Level 8.9 mg/dL (8.5-10.1) Magnesium Level 1.8 mg/dL (1.8-2.4) Test 07/13/18 07:09 07/13/18 11:56 07/13/18 16:36 07/13/18 21:08 Glucose (Fingerstick) 162 mg/dL (70-99) 172 mg/dL (70-99) 178 mg/dL (70-99) 139 mg/dL (70-99) Test 07/14/18 04:20 07/14/18 08:03 White Blood Count 7.6 x10^3/uL (4.0-11.0) Red Blood Count 4.30 x10^6/uL (4.30-5.70) Hemoglobin 10.4 g/dL (13.0-17.5) Hematocrit 33.6 % (39.0-53.0) Mean Corpuscular Volume 78 fL (79-100) Mean Corpuscular Hemoglobin 24 pg (25-35) Mean Corpuscular Hemoglobin Concent 31 g/dL (31-37) Red Cell Distribution Width 20.1 % (11.5-14.5) Platelet Count 251 x10^3/uL (140-400) Neutrophils (%) (Auto) 60 % (31-73) Lymphocytes (%) (Auto) 16 % (24-48) Monocytes (%) (Auto) 16 % (0-9) Eosinophils (%) (Auto) 7 % (0-3) Basophils (%) (Auto) 1 % (0-3) Neutrophils # (Auto) 4.5 x10^3uL (1.8-7.7) Lymphocytes # (Auto) 1.2 x10^3/uL (1.0-4.8) Monocytes # (Auto) 1.2 x10^3/uL (0.0-1.1) Eosinophils # (Auto) 0.6 x10^3/uL (0.0-0.7) Basophils # (Auto) 0.1 x10^3/uL (0.0-0.2) Sodium Level 138 mmol/L (136-145) Potassium Level 3.9 mmol/L (3.5-5.1) Chloride Level 99 mmol/L (98-107) Carbon Dioxide Level 29 mmol/L (21-32) Anion Gap 10 (6-14) Blood Urea Nitrogen 23 mg/dL (8-26) Creatinine 1.0 mg/dL (0.7-1.3) Estimated GFR (Cockcroft-Gault) 97.3 BUN/Creatinine Ratio 23 (6-20) Glucose Level 177 mg/dL (70-99) Calcium Level 8.7 mg/dL (8.5-10.1) Magnesium Level 1.6 mg/dL (1.8-2.4) Total Bilirubin 0.7 mg/dL (0.2-1.0) Aspartate Amino Transf (AST/SGOT) 33 U/L (15-37) Alanine Aminotransferase (ALT/SGPT) 25 U/L (16-63) Alkaline Phosphatase 211 U/L (46-116) Total Protein 8.4 g/dL (6.4-8.2) Albumin 2.8 g/dL (3.4-5.0) Albumin/Globulin Ratio 0.5 (1.0-1.7) Glucose (Fingerstick) 161 mg/dL (70-99) Laboratory Tests Test 07/13/18 11:56 07/13/18 16:36 07/13/18 21:08 07/14/18 04:20 Glucose (Fingerstick) 172 mg/dL (70-99) 178 mg/dL (70-99) 139 mg/dL (70-99) White Blood Count 7.6 x10^3/uL (4.0-11.0) Red Blood Count 4.30 x10^6/uL (4.30-5.70) Hemoglobin 10.4 g/dL (13.0-17.5) Hematocrit 33.6 % (39.0-53.0) Mean Corpuscular Volume 78 fL (79-100) Mean Corpuscular Hemoglobin 24 pg (25-35) Mean Corpuscular Hemoglobin Concent 31 g/dL (31-37) Red Cell Distribution Width 20.1 % (11.5-14.5) Platelet Count 251 x10^3/uL (140-400) Neutrophils (%) (Auto) 60 % (31-73) Lymphocytes (%) (Auto) 16 % (24-48) Monocytes (%) (Auto) 16 % (0-9) Eosinophils (%) (Auto) 7 % (0-3) Basophils (%) (Auto) 1 % (0-3) Neutrophils # (Auto) 4.5 x10^3uL (1.8-7.7) Lymphocytes # (Auto) 1.2 x10^3/uL (1.0-4.8) Monocytes # (Auto) 1.2 x10^3/uL (0.0-1.1) Eosinophils # (Auto) 0.6 x10^3/uL (0.0-0.7) Basophils # (Auto) 0.1 x10^3/uL (0.0-0.2) Sodium Level 138 mmol/L (136-145) Potassium Level 3.9 mmol/L (3.5-5.1) Chloride Level 99 mmol/L (98-107) Carbon Dioxide Level 29 mmol/L (21-32) Anion Gap 10 (6-14) Blood Urea Nitrogen 23 mg/dL (8-26) Creatinine 1.0 mg/dL (0.7-1.3) Estimated GFR (Cockcroft-Gault) 97.3 BUN/Creatinine Ratio 23 (6-20) Glucose Level 177 mg/dL (70-99) Calcium Level 8.7 mg/dL (8.5-10.1) Magnesium Level 1.6 mg/dL (1.8-2.4) Total Bilirubin 0.7 mg/dL (0.2-1.0) Aspartate Amino Transf (AST/SGOT) 33 U/L (15-37) Alanine Aminotransferase (ALT/SGPT) 25 U/L (16-63) Alkaline Phosphatase 211 U/L (46-116) Total Protein 8.4 g/dL (6.4-8.2) Albumin 2.8 g/dL (3.4-5.0) Albumin/Globulin Ratio 0.5 (1.0-1.7) Test 07/14/18 08:03 Glucose (Fingerstick) 161 mg/dL (70-99) Microbiology 07/07/18 Blood Culture - Final, Complete NO GROWTH AFTER 5 DAYS Medications Current Medications Ondansetron HCl (Zofran) 4 mg 1X ONCE IV Last administered on 07/07/18 18:36; Start 07/07/18 at 18:15; Stop 07/07/18 at 18:16; Status DC Morphine Sulfate (Morphine Sulfate) 4 mg 1X ONCE IV Last administered on 18:38; Start 07/07/18 at 18:15; Stop 07/07/18 at 18:16; Status DC Vancomycin HCl (Vanco Per Pharmacy) 1 each PRN DAILY PRN MC SEE COMMENTS Last administered on 07/07/18 21:02; Start 07/07/18 at 18:45; Stop 07/08/18 at 11:22; Status DC Vancomycin HCl 2 gm/Sodium Chloride 500 ml @ 250 mls/hr 1X ONCE IV Last administered on 07/07/18 18:54; Start 07/07/18 at 19:00; Stop 07/07/18 at 20:59; Status DC Morphine Sulfate (Morphine Sulfate) 4 mg PRN Q2HR PRN IV PAIN Last administered on 07/08/18 19:08; Start 07/07/18 at 20:15; Stop 07/08/18 at 20:14; Status DC Acetaminophen (Tylenol) 650 mg PRN Q4HRS PRN PO FEVER; Start 07/07/18 at 20:15; Stop 07/08/18 at 20:14; Status DC Vancomycin HCl 1.75 gm/Sodium Chloride 500 ml @ 250 mls/hr Q8H IV Last administered on 07/08/18 03:22; Start 07/08/18 at 03:00; Stop 07/08/18 at 11:22; Status DC Vancomycin HCl (Vancomycin Trough Level) 1 each 1X ONCE MC ; Start 07/08/18 at 18:30; Stop 07/08/18 at 18:30; Status DC Albuterol Sulfate (Ventolin Neb Soln) 2.5 mg PRN Q4HRS PRN NEB SHORTNESS OF BREATH Last administered on 07/08/18 08:01; Start 07/07/18 at 23:15 Bumetanide (Bumex) 1 mg DAILY PO Last administered on 07/08/18 09:06; Start 07/08/18 at 09:00; Stop 07/08/18 at 13:02; Status DC Carvedilol (Coreg) 6.25 mg BIDWMEALS PO Last administered on 07/14/18 08:37; Start 07/08/18 at 08:00 Carvedilol (Coreg) 6.25 mg BIDWMEALS PO ; Start 07/08/18 at 08:00; Status UNV Cetirizine HCl (ZyrTEC) 10 mg DAILY PO Last administered on 07/14/18 08:37; Start 07/08/18 at 09:00 Clopidogrel Bisulfate (Plavix) 75 mg DAILY PO Last administered on 07/14/18 08: 37; Start 07/08/18 at 09:00 Lisinopril (Prinivil) 20 mg DAILY PO Last administered on 07/14/18 08:35; Start 07/08/18 at 09:00 Trimethoprim/ Sulfamethoxazole (Bactrim Ds) 1 tab BID PO ; Start 07/08/18 at 09: 00; Status UNV Pantoprazole Sodium (Protonix) 40 mg DAILYAC PO Last administered on 07/14/18 08:37; Start 07/08/18 at 07:30 Non-Formulary Medication (Doxycycline Monohydrate ) 1 cap BID PO ; Start at 09:00; Status UNV Insulin Glargine (Lantus) 80 units DAILYAC SQ Last administered on 07/08/18 09: 42; Start 07/08/18 at 07:30; Stop 07/08/18 at 10:21; Status DC Non-Formulary Medication (Linaclotide (Linzess)) 145 mcg DAILY07 PO Last administered on 07/09/18 07:00; Start 07/08/18 at 07:00; Stop 07/10/18 at 16:57; Status DC Metformin HCl (Glucophage) 1,000 mg BIDWMEALS PO Last administered on 07/11/18 08:59; Start 07/08/18 at 08:00; Stop 07/11/18 at 19:12; Status DC Montelukast Sodium (Singulair) 10 mg QHS PO Last administered on 07/13/18 21:39 ; Start 07/08/18 at 21:00 Atorvastatin Calcium (Lipitor) 5 mg QHS PO Last administered on 07/13/18 21:39 ; Start 07/08/18 at 21:00 Insulin Glargine (Lantus) 80 units 1400 SQ ; Start 07/08/18 at 14:00; Status Cancel Aspirin (Ecotrin) 81 mg DAILYWBKFT PO Last administered on 07/14/18 08:00; Start 07/08/18 at 11:00 Carvedilol (Coreg) 6.25 mg BIDWMEALS PO ; Start 07/08/18 at 11:00; Status Cancel Famotidine (Pepcid) 20 mg HS PO Last administered on 07/13/18 21:39; Start 07/08 at 21:00 Furosemide (Lasix) 80 mg DAILY PO Last administered on 07/08/18 12:47; Start at 11:00; Stop 07/08/18 at 13:02; Status DC Gabapentin (Neurontin) 300 mg HS PO Last administered on 07/11/18at 20:32; Start 07/08/18 at 21:00; Stop 07/12/18 at 10:20; Status DC Insulin Glargine (Lantus) 100 units BID SQ ; Start 07/08/18 at 21:00; Status Cancel Insulin Human Lispro (HumaLOG) 70 units TIDWMEALS SQ Last administered on at 08:46; Start 07/08/18 at 12:00 Albuterol/ Ipratropium (Duoneb) 3 ml RTQID NEB Last administered on 07/14/18at 08 :00; Start 07/08/18 at 12:00 Bupropion HCl (Wellbutrin Xl) 300 mg DAILY PO Last administered on 07/14/18at 08: 29; Start 07/08/18 at 11:00 Non-Formulary Medication (Dexlansoprazole (Dexilant)) 1 cap DAILY PO ; Start 07/09/18 at 09:00; Stop 07/09/18 at 09:00; Status DC Non-Formulary Medication (Glycopyrrolate/ Formoterol Fum (Bevespi Aerosphere Inhaler)) 10.7 gm DAILY IH ; Start 07/09/18 at 09:00; Stop 07/10/18 at 10:43; Status DC Non-Formulary Medication (Linaclotide (Linzess)) 145 mcg DAILY PO ; Start at 09:00; Status UNV Non-Formulary Medication (Metformin Hcl (Glucophage)) 1,000 mg BIDWMEALS PO ; Start 07/08/18 at 17:00; Status UNV Non-Formulary Medication (Montelukast Sodium (Singulair Tablet)) 10 mg HS PO ; Start 07/08/18 at 21:00; Status UNV Non-Formulary Medication (Pravastatin Sodium ) 1 tab QHS PO ; Start 07/08/18 at 21:00; Status UNV Insulin Glargine (Lantus) 80 units BID SQ Last administered on 07/14/18at 09:15; Start 07/08/18 at 21:00 Ondansetron HCl (Zofran) 4 mg PRN Q6HRS PRN IV NAUSEA/VOMITING Last administered on 07/08/18 19:26; Start 07/08/18 at 11:15 Nicotine (Nicoderm Cq 21mg) 1 patch DAILY TD Last administered on 07/14/18 09: 15; Start 07/08/18 at 11:30 Albuterol Sulfate (Ventolin Neb Soln) 2.5 mg RTQID NEB ; Start 07/08/18 at 12:00 ; Stop 07/08/18 at 12:01; Status DC Linezolid (Zyvox) 600 mg BID PO Last administered on 07/11/18 09:20; Start 07/08 at 12:00; Stop 07/11/18 at 11:07; Status DC Metronidazole (Flagyl) 500 mg Q12HR PO Last administered on 07/11/18 08:59; Start 07/08/18 at 12:00; Stop 07/11/18 at 11:07; Status DC Fluconazole (Diflucan) 100 mg DAILY PO Last administered on 07/13/18 08:18; Start 07/08/18 at 12:00; Stop 07/13/18 at 09:28; Status DC Cefepime HCl (Maxipime) 2 gm Q12HR IVP Last administered on 07/13/18 08:13; Start 07/08/18 at 12:00; Stop 07/13/18 at 09:28; Status DC Diclofenac Sodium (Voltaren) 1 chung BID TP Last administered on 07/13/18 21:40; Start 07/08/18 at 21:00 Metolazone (Zaroxolyn) 5 mg DAILY PO Last administered on 07/14/18 09:10; Start 07/08/18 at 14:00 Furosemide (Lasix) 40 mg 1X ONCE IVP Last administered on 07/08/18 17:56; Start 07/08/18 at 13:00; Stop 07/08/18 at 13:19; Status DC Furosemide (Lasix) 40 mg Q6HRS IVP Last administered on 07/09/18 06:17; Start 07/08/18 at 18:00; Stop 07/09/18 at 11:26; Status DC Diphenhydramine HCl (Benadryl) 25 mg PRN Q6HRS PRN PO ITCHING Last administered on 07/12/18 03:31; Start 07/08/18 at 20:00 Lactobacillus Rhamnosus (Culturelle) 1 cap BID PO Last administered on 08:29; Start 07/08/18 at 21:00 Acetaminophen/ Hydrocodone Bitart (Lortab 5/325) 1 tab PRN Q4HRS PRN PO PAIN Last administered on 07/11/18 06:25; Start 07/09/18 at 10:30; Stop 07/11/18 at 09: 12; Status DC Dobutamine HCl/ Dextrose 250 ml @ 32.318 mls/ hr CONT PRN IV PER PROTOCOL Last administered on 07/14/18 02:23; Start 07/09/18 at 11:30 Furosemide 100 mg/ Sodium Chloride 100 ml @ 5 mls/hr CONT PRN IV SEE I/O RECORD Last administered on 07/13/18 21:38; Start 07/09/18 at 11:15 Methylprednisolone Acetate (DEPO-Medrol 40MG VIAL) 40 mg 1X ONCE IM Last administered on 07/10/18 09:15; Start 07/10/18 at 09:15; Stop 07/10/18 at 09:21; Status DC Bupivacaine HCl (Sensorcaine-Mpf 0.25%) 10 ml 1X ONCE IJ Last administered on 07/10/18 09:15; Start 07/10/18 at 09:15; Stop 07/10/18 at 09:21; Status DC Enoxaparin Sodium (Lovenox 80mg Syringe) 80 mg Q12HR SQ ; Start 07/10/18 at 10:15 ; Stop 07/10/18 at 11:14; Status DC Budesonide (Pulmicort) 0.5 mg RTBID NEB Last administered on 07/14/18 08:00; Start 07/10/18 at 20:00 Budesonide (Pulmicort) 0.5 mg 1X ONCE NEB Last administered on 07/10/18 11:25 ; Start 07/10/18 at 10:15; Stop 07/10/18 at 10:31; Status DC Enoxaparin Sodium (Lovenox 60mg Syringe) 60 mg Q12HR SQ Last administered on 08:36; Start 07/10/18 at 12:00 Lubiprostone (Amitiza) 8 mcg BIDWMEALS PO Last administered on 07/10/18 17:36; Start 07/10/18 at 14:00; Stop 07/10/18 at 20:00; Status DC Non-Formulary Medication (Linaclotide (Linzess)) 145 mcg DAILY07 PO Last administered on 07/14/18 08:39; Start 07/11/18 at 07:00 Zolpidem Tartrate (Ambien) 5 mg PRN QHS PRN PO INSOMNIA Last administered on 23:01; Start 07/10/18 at 18:15 Acetaminophen/ Hydrocodone Bitart (Lortab 10/325) 1 tab PRN Q6HRS PRN PO PAIN Last administered on 07/14/18 09:10; Start 07/11/18 at 09:15 Gabapentin (Neurontin) 300 mg TID PO Last administered on 07/14/18 08:29; Start 07/12/18 at 10:30 Tizanidine HCl (Zanaflex) 4 mg PRN Q8HRS PRN PO MUSCLE SPASMS Last administered on 07/13/18 21:39; Start 07/12/18 at 10:30 Cefdinir (Omnicef) 300 mg BID PO Last administered on 07/14/18 08:36; Start 07/13/18 at 21:00 Fluconazole (Diflucan) 200 mg DAILY PO Last administered on 07/14/18 08:36; Start 07/14/18 at 09:00 Magnesium Sulfate/ Dextrose 100 ml @ 25 mls/hr 1X ONCE IV ; Start 07/14/18 at 10:00; Stop 07/14/18 at 13:59 Active Scripts Active Gabapentin (Gabapentin) 300 Mg Capsule 300 Mg PO HS 30 Days Cefdinir 300 Mg Capsule 300 Mg PO BID 7 Days Lantus Solostar (Insulin Glargine,Hum.rec.anlog) 100 Unit/1 Ml Insuln.pen 100 Unit SQ BID Humalog (Insulin Lispro) 100 Unit/1 Ml Vial 70 Unit SQ TIDAC 30 Days Wellbutrin Xl (Bupropion Hcl) 300 Mg Tab.er.24h 1 Tab PO DAILY Furosemide 80 Mg Tablet 80 Mg PO DAILY 30 Days Duoneb 0.5-3(2.5) Mg/3 Ml (Albuterol/Ipratropium) 3 Ml Ampul.neb 3 Ml NEB RTQID 30 Days Glucophage (Metformin Hcl) 1,000 Mg Tablet 1,000 Mg PO BIDWMEALS Lisinopril 20 Mg Tablet 20 Mg PO DAILY Aspirin Ec (Aspirin) 81 Mg Tablet. 81 Mg PO DAILYWBKFT Reported Bactrim Ds Tablet (Sulfamethoxazole/Trimethoprim) 1 Each Tablet 1 Tab PO BID Lisinopril 20 Mg Tablet 1 Tab PO DAILY Clopidogrel (Clopidogrel Bisulfate) 75 Mg Tablet 1 Tab PO DAILY Toujeo Solostar (Insulin Glargine,Hum.rec.anlog) 300 Unit/1 Ml Insuln.pen 300 Unit SQ BID Metformin Hcl 1,000 Mg Tablet 1,000 Mg PO BIDWMEALS Singulair Tablet (Montelukast Sodium) 10 Mg Tablet 1 Tab PO DAILY Coreg (Carvedilol) 6.25 Mg Tablet 6.25 Mg PO BIDWMEALS Pravastatin Sodium 20 Mg Tablet 1 Tab PO DAILY Cetirizine Hcl 10 Mg Tablet 1 Tab PO DAILY Bumetanide 1 Mg Tablet 1 Tab PO DAILY Linzess (Linaclotide) 145 Mcg Capsule 145 Mcg PO DAILY07 Dexilant (Dexlansoprazole) 60 Mg Cap. 1 Cap PO DAILY Doxycycline Monohydrate 100 Mg Capsule 1 Cap PO BID Bevespi Aerosphere Inhaler (Glycopyrrolate/Formoterol Fum) 10.7 Gm Hfa.aer.ad 10.7 Gm IH DAILY Carvedilol (Carvedilol) 6.25 Mg Tablet 1 Tab PO BID Pravastatin Sodium 20 Mg Tablet 1 Tab PO QHS Singulair Tablet (Montelukast Sodium) 10 Mg Tablet 10 Mg PO HS Famotidine 20 Mg Tablet 20 Mg PO HS Dexilant (Dexlansoprazole) 60 Mg Cap. 1 Cap PO DAILY Linzess (Linaclotide) 145 Mcg Capsule 145 Mcg PO DAILY Vitals/I & O Vital Sign - Last 24 Hours 07/13/18 07/13/18 07/13/18 07/13/18 11:08 12:03 15:02 16:44 Temp 97.9 97.9 97.9 97.9 Pulse 111 106 Resp 20 20 B/P (MAP) 133/52 (79) 141/72 (95) Pulse Ox 96 93 93 O2 Delivery Nasal Cannula Room Air Nasal Cannula Room Air O2 Flow Rate 4.0 4.0 07/13/18 07/13/18 07/13/18 07/13/18 17:30 19:40 19:52 20:00 Temp 98.0 98.0 Pulse 106 110 Resp 20 B/P (MAP) 141/72 142/70 (94) Pulse Ox 99 99 O2 Delivery Nasal Cannula Nasal Cannula Nasal Cannula O2 Flow Rate 4.0 4.0 3.0 07/13/18 07/13/18 07/14/18 07/14/18 22:52 23:01 00:01 01:15 Temp 98.1 98.1 Pulse 115 Resp 18 B/P (MAP) 161/62 (95) Pulse Ox 99 O2 Delivery Nasal Cannula Nasal Cannula Room Air BiPAP/CPAP O2 Flow Rate 4.0 3.0 07/14/18 07/14/18 07/14/18 07/14/18 02:26 07:00 08:00 08:35 Temp 98.2 97.9 98.2 97.9 Pulse 115 104 106 Resp 18 20 B/P (MAP) 128/67 (87) 133/67 (89) 133/83 Pulse Ox 95 96 98 O2 Delivery Room Air Nasal Cannula Nasal Cannula O2 Flow Rate 3.0 4.0 07/14/18 07/14/18 08:37 08:42 Temp 97.9 97.9 Pulse 109 104 Resp 20 B/P (MAP) 133/83 133/83 (100) Pulse Ox 96 O2 Delivery Nasal Cannula O2 Flow Rate 3.0 Intake and Output 07/13/18 07/13/18 07/14/18 15:00 23:00 07:00 Intake Total 970 ml 500 ml 1471 ml Output Total 2765 ml 1925 ml 1500 ml Balance -1795 ml -1425 ml -29 ml ALVARO RHOADES MD Jul 14, 2018 09:54
[2018-07-14] MEDS ORDERED: MAGNESIUM SULFATE 4GM 100 ML IV ONE (10:00)
--- NOTE | 2018-07-14 10:40 | NUR ---
SS following up with discharge planning. PT recommended acute rehabilitation. SS met with pt to discuss acute rehabilitation and discharge planning. Pt declined acute rehabilitation and stated that he would not go to longterm unit either. Pt reported that he preferred to discharge to home with home healthcare services. Jasmin from [facility] meeting with pt to discuss home healthcare services. Pt's RN notified.
--- NOTE | 2018-07-14 15:00 | PDOC ---
SUBJECTIVE ROS No new complaints,sleeping in chair OBJECTIVE Vital Signs Vital Signs Date Time Temp Pulse Resp B/P (MAP) Pulse Ox O2 Delivery O2 Flow Rate FiO2 07/14/18 14:21 97.6 95 20 113/55 (74) 94 Room Air 3.0 97.6 I & 0 Intake and Output 07/14/18 06:59 Intake Total 2941 ml Output Total 6190 ml Balance -3249 ml Intake Oral 1670 ml IV Total 1271 ml Output Urine Total 6190 ml # Voids 1 PHYSICAL EXAM Physical Exam Gen: NAD, HEENT: OM moist , On RA NECK: Supple. LUNGS: Clear to auscultation. HEART: S1, S2. ABDOMEN: Morbidly obese, pitting edema lower abdominal area., improved some EXTREMITIES: chronic swelling of the bilateral lower extremities, left greater than right mostly in thighs SKIN: No rash NEUROLOGIC: Nonfocal No garcia DIAGNOSIS/ASSESSMENT Assessment & Plan Anasarca- Cardiorenal On Lasix drip , Dobutamine and Metolazone Dobutamine dced today Good response NURY -Cardiorenal, renal function improving Hyperkalemia- resolved Hypomag- Replace LE cellulitis- ID Has been on multiple ABx as per Pt Most Recent Bactrim prior to admission Morbid Obesity CM with EF of 15-20% Cardiology following Pulm Infiltrates CT scan stable findings Hyperkalemia Severe KATIUSKA- Non compliant Chronic Anemia CAD COMMENT/RELEVANT DATA Meds Current Medications Medications (Trade) Dose Ordered Sig/Linden Start Time Stop Time Status Last Admin Dose Admin Acetaminophen (Tylenol) 650 mg PRN Q4HRS PRN 07/07/18 20:15 07/08/18 20:14 DC Acetaminophen/ Hydrocodone Bitart (Lortab 10/325) 1 tab PRN Q6HRS PRN 07/11/18 09:15 07/14/18 09:10 1 TAB Acetaminophen/ Hydrocodone Bitart (Lortab 5/325) 1 tab PRN Q4HRS PRN 07/09/18 10:30 07/11/18 09:12 DC 07/11/18 06:25 1 TAB Albuterol Sulfate (Ventolin Neb Soln) 2.5 mg RTQID 07/08/18 12:00 07/08/18 12:01 DC Albuterol/ Ipratropium (Duoneb) 3 ml RTQID 07/08/18 12:00 07/14/18 11:42 3 ML Aspirin (Ecotrin) 81 mg DAILYWBKFT 07/08/18 11:00 07/14/18 08:00 81 MG Atorvastatin Calcium (Lipitor) 5 mg QHS 07/08/18 21:00 07/13/18 21:39 5 MG Budesonide (Pulmicort) 0.5 mg 1X ONCE 07/10/18 10:15 07/10/18 10:31 DC 07/10/18 11:25 0.5 MG Bumetanide (Bumex) 1 mg DAILY 07/08/18 09:00 07/08/18 13:02 DC 07/08/18 09:06 1 MG Bupivacaine HCl (Sensorcaine-Mpf 0.25%) 10 ml 1X ONCE 07/10/18 09:15 07/10/18 09:21 DC 07/10/18 09:15 10 ML Bupropion HCl (Wellbutrin Xl) 300 mg DAILY 07/08/18 11:00 07/14/18 08:29 300 MG Carvedilol (Coreg) 6.25 mg BIDWMEALS 07/08/18 11:00 Cancel Cefdinir (Omnicef) 300 mg BID 07/13/18 21:00 07/14/18 08:36 300 MG Cefepime HCl (Maxipime) 2 gm Q12HR 07/08/18 12:00 07/13/18 09:28 DC 07/13/18 08:13 2 GM Cetirizine HCl (ZyrTEC) 10 mg DAILY 07/08/18 09:00 07/14/18 08:37 10 MG Clopidogrel Bisulfate (Plavix) 75 mg DAILY 07/08/18 09:00 07/14/18 08:37 75 MG Diclofenac Sodium (Voltaren) 1 chung BID 07/08/18 21:00 07/13/18 21:40 1 CHUNG Diphenhydramine HCl (Benadryl) 25 mg PRN Q6HRS PRN 07/08/18 20:00 07/12/18 03:31 25 MG Dobutamine HCl/ Dextrose 250 ml @ 32.318 mls/ hr CONT PRN 07/09/18 11:30 07/14/18 13:03 DC 07/14/18 11:33 32.318 MLS/HR Enoxaparin Sodium (Lovenox 60mg Syringe) 60 mg Q12HR 07/10/18 12:00 07/14/18 08:36 60 MG Enoxaparin Sodium (Lovenox 80mg Syringe) 80 mg Q12HR 07/10/18 10:15 07/10/18 11:14 DC Famotidine (Pepcid) 20 mg HS 07/08/18 21:00 07/13/18 21:39 20 MG Fluconazole (Diflucan) 200 mg DAILY 07/14/18 09:00 07/14/18 08:36 200 MG Furosemide (Lasix) 40 mg Q6HRS 07/08/18 18:00 07/09/18 11:26 DC 07/09/18 06:17 40 MG Furosemide 100 mg/ Sodium Chloride 100 ml @ 5 mls/hr CONT PRN 07/09/18 11:15 07/13/18 21:38 5 MLS/HR Gabapentin (Neurontin) 300 mg TID 07/12/18 10:30 07/14/18 13:49 300 MG Insulin Glargine (Lantus) 80 units BID 07/08/18 21:00 07/14/18 09:15 80 UNITS Insulin Human Lispro (HumaLOG) 70 units TIDWMEALS 07/08/18 12:00 07/14/18 12:19 70 UNITS Lactobacillus Rhamnosus (Culturelle) 1 cap BID 07/08/18 21:00 07/14/18 08:29 1 CAP Linezolid (Zyvox) 600 mg BID 07/08/18 12:00 07/11/18 11:07 DC 07/11/18 09:20 600 MG Lisinopril (Prinivil) 20 mg DAILY 07/08/18 09:00 07/14/18 08:35 20 MG Lubiprostone (Amitiza) 8 mcg BIDWMEALS 07/10/18 14:00 07/10/18 20:00 DC 07/10/18 17:36 8 MCG Magnesium Sulfate/ Dextrose 100 ml @ 25 mls/hr 1X ONCE 07/14/18 10:00 07/14/18 13:59 DC 07/14/18 09:50 25 MLS/HR Metformin HCl (Glucophage) 1,000 mg BIDWMEALS 07/08/18 08:00 07/11/18 19:12 DC 07/11/18 08:59 1,000 MG Methylprednisolone Acetate (DEPO-Medrol 40MG VIAL) 40 mg 1X ONCE 07/10/18 09:15 07/10/18 09:21 DC 07/10/18 09:15 40 MG Metolazone (Zaroxolyn) 5 mg DAILY 07/08/18 14:00 07/14/18 09:10 5 MG Metronidazole (Flagyl) 500 mg Q12HR 07/08/18 12:00 07/11/18 11:07 DC 07/11/18 08:59 500 MG Montelukast Sodium (Singulair) 10 mg QHS 07/08/18 21:00 07/13/18 21:39 10 MG Morphine Sulfate (Morphine Sulfate) 4 mg PRN Q2HR PRN 07/07/18 20:15 07/08/18 20:14 DC 07/08/18 19:08 4 MG Nicotine (Nicoderm Cq 21mg) 1 patch DAILY 07/08/18 11:30 07/14/18 09:15 1 PATCH Non-Formulary Medication (Dexlansoprazole (Dexilant)) 1 cap DAILY 07/09/18 09:00 07/09/18 09:00 DC Non-Formulary Medication (Doxycycline Monohydrate ) 1 cap BID 07/08/18 09:00 UNV Non-Formulary Medication (Glycopyrrolate/ Formoterol Fum (Bevespi Aerosphere Inhaler)) 10.7 gm DAILY 07/09/18 09:00 07/10/18 10:43 DC Non-Formulary Medication (Linaclotide (Linzess)) 145 mcg DAILY07 07/11/18 07:00 07/14/18 08:39 145 MCG Non-Formulary Medication (Metformin Hcl (Glucophage)) 1,000 mg BIDWMEALS 07/08/18 17:00 UNV Non-Formulary Medication (Montelukast Sodium (Singulair Tablet)) 10 mg HS 07/08/18 21:00 UNV Non-Formulary Medication (Pravastatin Sodium ) 1 tab QHS 07/08/18 21:00 UNV Ondansetron HCl (Zofran) 4 mg PRN Q6HRS PRN 07/08/18 11:15 07/08/18 19:26 4 MG Pantoprazole Sodium (Protonix) 40 mg DAILYAC 07/08/18 07:30 07/14/18 08:37 40 MG Tizanidine HCl (Zanaflex) 4 mg PRN Q8HRS PRN 07/12/18 10:30 07/13/18 21:39 4 MG Trimethoprim/ Sulfamethoxazole (Bactrim Ds) 1 tab BID 07/08/18 09:00 UNV Vancomycin HCl (Vanco Per Pharmacy) 1 each PRN DAILY PRN 07/07/18 18:45 07/08/18 11:22 DC 07/07/18 21:02 1 EACH Vancomycin HCl (Vancomycin Trough Level) 1 each 1X ONCE 07/08/18 18:30 07/08/18 18:30 DC Vancomycin HCl 1.75 gm/Sodium Chloride 500 ml @ 250 mls/hr Q8H 07/08/18 03:00 07/08/18 11:22 DC 07/08/18 03:22 250 MLS/HR Vancomycin HCl 2 gm/Sodium Chloride 500 ml @ 250 mls/hr 1X ONCE 07/07/18 19:00 07/07/18 20:59 DC 07/07/18 18:54 250 MLS/HR Zolpidem Tartrate (Ambien) 5 mg PRN QHS PRN 07/10/18 18:15 07/13/18 23:01 5 MG Lab Laboratory Tests Test 07/13/18 16:36 07/13/18 21:08 07/14/18 04:20 07/14/18 08:03 Glucose (Fingerstick) 178 mg/dL (70-99) 139 mg/dL (70-99) 161 mg/dL (70-99) White Blood Count 7.6 x10^3/uL (4.0-11.0) Red Blood Count 4.30 x10^6/uL (4.30-5.70) Hemoglobin 10.4 g/dL (13.0-17.5) Hematocrit 33.6 % (39.0-53.0) Mean Corpuscular Volume 78 fL (79-100) Mean Corpuscular Hemoglobin 24 pg (25-35) Mean Corpuscular Hemoglobin Concent 31 g/dL (31-37) Red Cell Distribution Width 20.1 % (11.5-14.5) Platelet Count 251 x10^3/uL (140-400) Neutrophils (%) (Auto) 60 % (31-73) Lymphocytes (%) (Auto) 16 % (24-48) Monocytes (%) (Auto) 16 % (0-9) Eosinophils (%) (Auto) 7 % (0-3) Basophils (%) (Auto) 1 % (0-3) Neutrophils # (Auto) 4.5 x10^3uL (1.8-7.7) Lymphocytes # (Auto) 1.2 x10^3/uL (1.0-4.8) Monocytes # (Auto) 1.2 x10^3/uL (0.0-1.1) Eosinophils # (Auto) 0.6 x10^3/uL (0.0-0.7) Basophils # (Auto) 0.1 x10^3/uL (0.0-0.2) Sodium Level 138 mmol/L (136-145) Potassium Level 3.9 mmol/L (3.5-5.1) Chloride Level 99 mmol/L (98-107) Carbon Dioxide Level 29 mmol/L (21-32) Anion Gap 10 (6-14) Blood Urea Nitrogen 23 mg/dL (8-26) Creatinine 1.0 mg/dL (0.7-1.3) Estimated GFR (Cockcroft-Gault) 97.3 BUN/Creatinine Ratio 23 (6-20) Glucose Level 177 mg/dL (70-99) Calcium Level 8.7 mg/dL (8.5-10.1) Magnesium Level 1.6 mg/dL (1.8-2.4) Total Bilirubin 0.7 mg/dL (0.2-1.0) Aspartate Amino Transf (AST/SGOT) 33 U/L (15-37) Alanine Aminotransferase (ALT/SGPT) 25 U/L (16-63) Alkaline Phosphatase 211 U/L (46-116) Total Protein 8.4 g/dL (6.4-8.2) Albumin 2.8 g/dL (3.4-5.0) Albumin/Globulin Ratio 0.5 (1.0-1.7) Test 07/14/18 10:27 Glucose (Fingerstick) 240 mg/dL (70-99) Results All relevant outside records, renal labs, imaging studies, telemetry/EKG's were reviewed. GILMA GARCES MD Jul 14, 2018 15:00
--- NOTE | 2018-07-14 16:28 | PDOC ---
CARDIOLOGY PROGRESS NOTE SUBJECTIVE: No acute events overnight. The patient reports that he is nearing his baseline although he's having difficulty walking around the hallways. OBJECTIVE: Vital SIgns: Vital Signs Date Time Temp Pulse Resp B/P (MAP) Pulse Ox O2 Delivery O2 Flow Rate FiO2 07/14/18 15:41 Nasal Cannula 4.0 07/14/18 14:21 97.6 95 20 113/55 (74) 94 97.6 I & O Intake and Output 07/14/18 07:00 Intake Total 2941 ml Output Total 6190 ml Balance -3249 ml Intake Oral 1670 ml IV Total 1271 ml Output Urine Total 6190 ml # Voids 1 Objective: On examination his scrotal edema has significantly decreased. His bilateral lower ext edema is completely resolved. His thigh edema is improved. Heart tones are within normal limits. Lungs are clear. CURRENT MEDICATIONS: Current Medications Medications (Trade) Dose Ordered Sig/Linden Start Time Stop Time Status Last Admin Dose Admin Acetaminophen (Tylenol) 650 mg PRN Q4HRS PRN 07/07/18 20:15 07/08/18 20:14 DC Acetaminophen/ Hydrocodone Bitart (Lortab 10/325) 1 tab PRN Q6HRS PRN 07/11/18 09:15 07/14/18 09:10 1 TAB Acetaminophen/ Hydrocodone Bitart (Lortab 5/325) 1 tab PRN Q4HRS PRN 07/09/18 10:30 07/11/18 09:12 DC 07/11/18 06:25 1 TAB Albuterol Sulfate (Ventolin Neb Soln) 2.5 mg RTQID 07/08/18 12:00 07/08/18 12:01 DC Albuterol/ Ipratropium (Duoneb) 3 ml RTQID 07/08/18 12:00 07/14/18 15:40 3 ML Aspirin (Ecotrin) 81 mg DAILYWBKFT 07/08/18 11:00 07/14/18 08:00 81 MG Atorvastatin Calcium (Lipitor) 5 mg QHS 07/08/18 21:00 07/13/18 21:39 5 MG Budesonide (Pulmicort) 0.5 mg 1X ONCE 07/10/18 10:15 07/10/18 10:31 DC 07/10/18 11:25 0.5 MG Bumetanide (Bumex) 1 mg DAILY 07/08/18 09:00 07/08/18 13:02 DC 07/08/18 09:06 1 MG Bupivacaine HCl (Sensorcaine-Mpf 0.25%) 10 ml 1X ONCE 07/10/18 09:15 07/10/18 09:21 DC 07/10/18 09:15 10 ML Bupropion HCl (Wellbutrin Xl) 300 mg DAILY 07/08/18 11:00 07/14/18 08:29 300 MG Carvedilol (Coreg) 6.25 mg BIDWMEALS 07/08/18 11:00 Cancel Cefdinir (Omnicef) 300 mg BID 07/13/18 21:00 07/14/18 08:36 300 MG Cefepime HCl (Maxipime) 2 gm Q12HR 07/08/18 12:00 07/13/18 09:28 DC 07/13/18 08:13 2 GM Cetirizine HCl (ZyrTEC) 10 mg DAILY 07/08/18 09:00 07/14/18 08:37 10 MG Clopidogrel Bisulfate (Plavix) 75 mg DAILY 07/08/18 09:00 07/14/18 08:37 75 MG Diclofenac Sodium (Voltaren) 1 chung BID 07/08/18 21:00 07/13/18 21:40 1 CHUNG Diphenhydramine HCl (Benadryl) 25 mg PRN Q6HRS PRN 07/08/18 20:00 07/12/18 03:31 25 MG Dobutamine HCl/ Dextrose 250 ml @ 32.318 mls/ hr CONT PRN 07/09/18 11:30 07/14/18 13:03 DC 07/14/18 11:33 32.318 MLS/HR Enoxaparin Sodium (Lovenox 60mg Syringe) 60 mg Q12HR 07/10/18 12:00 07/14/18 08:36 60 MG Enoxaparin Sodium (Lovenox 80mg Syringe) 80 mg Q12HR 07/10/18 10:15 07/10/18 11:14 DC Famotidine (Pepcid) 20 mg HS 07/08/18 21:00 07/13/18 21:39 20 MG Fluconazole (Diflucan) 200 mg DAILY 07/14/18 09:00 07/14/18 08:36 200 MG Furosemide (Lasix) 40 mg Q6HRS 07/08/18 18:00 07/09/18 11:26 DC 07/09/18 06:17 40 MG Furosemide 100 mg/ Sodium Chloride 100 ml @ 5 mls/hr CONT PRN 07/09/18 11:15 07/13/18 21:38 5 MLS/HR Gabapentin (Neurontin) 300 mg TID 07/12/18 10:30 07/14/18 13:49 300 MG Insulin Glargine (Lantus) 80 units BID 07/08/18 21:00 07/14/18 09:15 80 UNITS Insulin Human Lispro (HumaLOG) 70 units TIDWMEALS 07/08/18 12:00 07/14/18 12:19 70 UNITS Lactobacillus Rhamnosus (Culturelle) 1 cap BID 07/08/18 21:00 07/14/18 08:29 1 CAP Linezolid (Zyvox) 600 mg BID 07/08/18 12:00 07/11/18 11:07 DC 07/11/18 09:20 600 MG Lisinopril (Prinivil) 20 mg DAILY 07/08/18 09:00 07/14/18 08:35 20 MG Lubiprostone (Amitiza) 8 mcg BIDWMEALS 07/10/18 14:00 07/10/18 20:00 DC 07/10/18 17:36 8 MCG Magnesium Sulfate/ Dextrose 100 ml @ 25 mls/hr 1X ONCE 07/14/18 10:00 07/14/18 13:59 DC 07/14/18 09:50 25 MLS/HR Metformin HCl (Glucophage) 1,000 mg BIDWMEALS 07/08/18 08:00 07/11/18 19:12 DC 07/11/18 08:59 1,000 MG Methylprednisolone Acetate (DEPO-Medrol 40MG VIAL) 40 mg 1X ONCE 07/10/18 09:15 07/10/18 09:21 DC 07/10/18 09:15 40 MG Metolazone (Zaroxolyn) 5 mg DAILY 07/08/18 14:00 07/14/18 09:10 5 MG Metronidazole (Flagyl) 500 mg Q12HR 4/3/19 12:00 07/11/18 11:07 DC 07/11/18 08:59 500 MG Montelukast Sodium (Singulair) 10 mg QHS 07/08/18 21:00 07/13/18 21:39 10 MG Morphine Sulfate (Morphine Sulfate) 4 mg PRN Q2HR PRN 07/07/18 20:15 07/08/18 20:14 DC 07/08/18 19:08 4 MG Nicotine (Nicoderm Cq 21mg) 1 patch DAILY 07/08/18 11:30 07/14/18 09:15 1 PATCH Non-Formulary Medication (Dexlansoprazole (Dexilant)) 1 cap DAILY 07/09/18 09:00 07/09/18 09:00 DC Non-Formulary Medication (Doxycycline Monohydrate ) 1 cap BID 07/08/18 09:00 UNV Non-Formulary Medication (Glycopyrrolate/ Formoterol Fum (Bevespi Aerosphere Inhaler)) 10.7 gm DAILY 07/09/18 09:00 07/10/18 10:43 DC Non-Formulary Medication (Linaclotide (Linzess)) 145 mcg DAILY07 07/11/18 07:00 07/14/18 08:39 145 MCG Non-Formulary Medication (Metformin Hcl (Glucophage)) 1,000 mg BIDWMEALS 07/08/18 17:00 UNV Non-Formulary Medication (Montelukast Sodium (Singulair Tablet)) 10 mg HS 07/08/18 21:00 UNV Non-Formulary Medication (Pravastatin Sodium ) 1 tab QHS 07/08/18 21:00 UNV Ondansetron HCl (Zofran) 4 mg PRN Q6HRS PRN 07/08/18 11:15 07/08/18 19:26 4 MG Pantoprazole Sodium (Protonix) 40 mg DAILYAC 07/08/18 07:30 07/14/18 08:37 40 MG Tizanidine HCl (Zanaflex) 4 mg PRN Q8HRS PRN 07/12/18 10:30 07/13/18 21:39 4 MG Trimethoprim/ Sulfamethoxazole (Bactrim Ds) 1 tab BID 07/08/18 09:00 UNV Vancomycin HCl (Vanco Per Pharmacy) 1 each PRN DAILY PRN 07/07/18 18:45 4/3/19 11:22 DC 07/07/18 21:02 1 EACH Vancomycin HCl (Vancomycin Trough Level) 1 each 1X ONCE 07/08/18 18:30 07/08/18 18:30 DC Vancomycin HCl 1.75 gm/Sodium Chloride 500 ml @ 250 mls/hr Q8H 07/08/18 03:00 07/08/18 11:22 DC 07/08/18 03:22 250 MLS/HR Vancomycin HCl 2 gm/Sodium Chloride 500 ml @ 250 mls/hr 1X ONCE 07/07/18 19:00 07/07/18 20:59 DC 07/07/18 18:54 250 MLS/HR Zolpidem Tartrate (Ambien) 5 mg PRN QHS PRN 07/10/18 18:15 07/13/18 23:01 5 MG DIAGNOSTIC TESTING: Creatinine stable. No evidence of hepatic congestion. ASSESSMENT: Acute on chronic systolic and diastolic heart failure Acute kidney injury improved Morbid obesity PLAN: 1. Discontinue dobutamine drip today. Continue oral medical therapy. Anticipate discharge in likely in the next 24-48 hours. 2. We will plan for referral to [facility] for long-term heart failure care as he may in the future need heart transplantation or LVAD therapy. 3. We will plan for outpatient ICD implantation when he gets to wt below 400 lbs so that the catheterization table can hold him. TISH PONCE MD Jul 14, 2018 16:28
[2018-07-14] MEDS: FUROSEMIDE INJ 100 MG in IV NORMAL SALINE 100ML 100 ML IV PRN (20:15)
[2018-07-14] MEDS: tiZANidine 4 MG TABLET. PO PRN (21:21)
[2018-07-14] MEDS: ATORVASTATIN CALCIUM 10 MG TABLET. PO SCH (21:21)
[2018-07-14] MEDS: MONTELUKAST SODIUM 10 MG TABLET. PO SCH (21:21)
[2018-07-14] MEDS: FAMOTIDINE 20 MG TABLET. PO SCH (21:21)
[2018-07-14] MEDS: ZOLPIDEM 5 MG TABLET. PO PRN (22:59)
--- NOTE | 2018-07-15 00:30 | NUR ---
PLACED PT ON BIPAP, HE TOOK IT OFF IMMEDIATELY, STATES THAT HE "WILL PUT IT ON WHEN HE WANTS TO"
[2018-07-15 03:23] VITALS: BP 127/69
[2018-07-15 04:15] LABS: BASO # 0.1 x10^3/uL (0.0-0.2); BASO % 1 % (0-3); EOS # 0.5 x10^3/uL (0.0-0.7); EOS % 7 % (0-3); HEMATOCRIT 34.7 % (39.0-53.0); HEMOGLOBIN 10.5 g/dL (13.0-17.5); LYMPH # 1.1 x10^3/uL (1.0-4.8); LYMPH % 15 % (24-48); MEAN CORPUSCULAR HEMOGLOBIN 24 pg (25-35); MEAN CORPUSCULAR HGB CONC 30 g/dL (31-37); MEAN CORPUSCULAR VOLUME 79 fL (79-100); MONO # 1.2 x10^3/uL (0.0-1.1); MONO % 16 % (0-9); NEUT # 4.4 x10^3uL (1.8-7.7); NEUT % 60 % (31-73); PLATELET COUNT 251 x10^3/uL (140-400); RED CELL DISTRIBUTION WIDTH 20.5 % (11.5-14.5); WHITE BLOOD COUNT 7.2 x10^3/uL (4.0-11.0)
[2018-07-15 04:37] LABS: CALCIUM 8.3 mg/dL (8.5-10.1); CREATININE 1.4 mg/dL (0.7-1.3); MAGNESIUM 2.2 mg/dL (1.8-2.4); POTASSIUM 4.7 mmol/L (3.5-5.1)
[2018-07-15 07:00] VITALS: BP 119/64
[2018-07-15] MEDS: HYDROcodone/APAP 10/325 1 TAB TABLET PO PRN ×3 (07:28→23:03)
[2018-07-15] MEDS: PANTOPRAZOLE 40 MG TABLET.DR. PO SCH (07:29)
[2018-07-15] MEDS: BUDESONIDE 0.5 MG/2 ML NEBU. NEB SCH ×2 (07:47→18:17)
[2018-07-15] MEDS: IPRATRPIUM/ALBUTEROL 0.5/2.5MG 3 ML NEBU. NEB SCH ×4 (07:47→18:17)
--- NOTE | 2018-07-15 08:22 | PDOC ---
Infectious Disease Note Subjective Subjective feeling better ROS ROS no n/v/d/sob Vital Sign Vital Signs Vital Signs Date Time Temp Pulse Resp B/P (MAP) Pulse Ox O2 Delivery O2 Flow Rate FiO2 07/15/18 07:47 96 Nasal Cannula 4.0 07/15/18 07:00 97.8 105 20 119/64 (82) 97.8 Physical Exam PHYSICAL EXAM GENERAL: Sitting in hte chair, alert, relaxed appearance HEENT: Pupils equal and reactive. Oral cavity, pharynx is clear. NECK: Supple. LUNGS: Clear to auscultation. HEART: S1, S2. ABDOMEN: Morbidly obese, soft, no guarding, no rebound. He has got some pitting thickness of his lower extremity abdominal area EXTREMITIES: No clubbing, cyanosis. Chronic swelling of the bilateral lower extremities, left greater than right and also had some fullness and thickening of groin tissue of his left thigh. SKIN: Otherwise warm to touch without signs of rash. NEUROLOGIC: Nonfocal and appropriate. PIV Labs Lab Laboratory Tests Test 07/14/18 10:27 07/14/18 17:28 07/14/18 20:22 07/15/18 03:45 Glucose (Fingerstick) 240 mg/dL (70-99) 177 mg/dL (70-99) 114 mg/dL (70-99) White Blood Count 7.2 x10^3/uL (4.0-11.0) Red Blood Count 4.40 x10^6/uL (4.30-5.70) Hemoglobin 10.5 g/dL (13.0-17.5) Hematocrit 34.7 % (39.0-53.0) Mean Corpuscular Volume 79 fL (79-100) Mean Corpuscular Hemoglobin 24 pg (25-35) Mean Corpuscular Hemoglobin Concent 30 g/dL (31-37) Red Cell Distribution Width 20.5 % (11.5-14.5) Platelet Count 251 x10^3/uL (140-400) Neutrophils (%) (Auto) 60 % (31-73) Lymphocytes (%) (Auto) 15 % (24-48) Monocytes (%) (Auto) 16 % (0-9) Eosinophils (%) (Auto) 7 % (0-3) Basophils (%) (Auto) 1 % (0-3) Neutrophils # (Auto) 4.4 x10^3uL (1.8-7.7) Lymphocytes # (Auto) 1.1 x10^3/uL (1.0-4.8) Monocytes # (Auto) 1.2 x10^3/uL (0.0-1.1) Eosinophils # (Auto) 0.5 x10^3/uL (0.0-0.7) Basophils # (Auto) 0.1 x10^3/uL (0.0-0.2) Sodium Level 138 mmol/L (136-145) Potassium Level 4.7 mmol/L (3.5-5.1) Chloride Level 101 mmol/L (98-107) Carbon Dioxide Level 31 mmol/L (21-32) Anion Gap 6 (6-14) Blood Urea Nitrogen 29 mg/dL (8-26) Creatinine 1.4 mg/dL (0.7-1.3) Estimated GFR (Cockcroft-Gault) 66.0 Glucose Level 337 mg/dL (70-99) Calcium Level 8.3 mg/dL (8.5-10.1) Magnesium Level 2.2 mg/dL (1.8-2.4) Test 07/15/18 07:17 Glucose (Fingerstick) 296 mg/dL (70-99) Micro Microbiology 07/07/18 Blood Culture - Final, Complete NO GROWTH AFTER 5 DAYS Objective Assessment Left upper thigh cellulitis/yeast vs fluid retention - normal Procalcitonin NURY - stable Fluid overload Augmentin allergy - rash Morbid Obesity DM Plan Plan of Care omnicef and Fluconazole for 5 days off Zyvox and Flagyl Probiotics Diuresis BC NGTD CUCO TRENT MD Jul 15, 2018 08:22
[2018-07-15] MEDS: ASPIRIN ENTERIC COATED 81 MG TABLET.DR. PO SCH (08:36)
[2018-07-15] MEDS: CEFDINIR 300 MG CAPSULE PO SCH ×2 (08:36→21:15)
[2018-07-15] MEDS: CARVEDILOL 6.25 MG TABLET. PO SCH ×2 (08:36→17:47)
[2018-07-15] MEDS: GABAPENTIN 300 MG CAPSULE. PO SCH ×3 (08:36→21:15)
[2018-07-15] MEDS: FLUCONAZOLE 100 MG TABLET. PO SCH (08:36)
[2018-07-15] MEDS: CLOPIDOGREL BISULFATE 75 MG TABLET PO SCH (08:36)
[2018-07-15] MEDS: CETIRIZINE HCL 10 MG TABLET. PO SCH (08:37)
[2018-07-15] MEDS: LACTOBACILLUS RHAMNOSUS GG 1 CAPSULE. PO SCH ×2 (08:37→21:15)
[2018-07-15] MEDS: LISINOPRIL 20 MG TABLET PO SCH (08:37)
[2018-07-15] MEDS: buPROPion XL 150 MG TAB.ER.24H. PO SCH (08:37)
[2018-07-15] MEDS: metOLazone 2.5 MG TABLET PO SCH (08:38)
[2018-07-15] MEDS: DICLOFENAC SODIUM 1% TOPICAL GEL 100GM TUBE. TP SCH ×2 (08:48→21:16)
[2018-07-15] MEDS: INSULIN LISPRO 300 UNITS/3 ML INSULN.PEN. SQ SCH ×3 (08:49→17:00)
[2018-07-15] MEDS: INSULIN GLARGINE 300 UNITS/3 ML INSULN.PEN. SQ SCH ×2 (08:50→21:20)
--- NOTE | 2018-07-15 09:09 | PDOC ---
PROGRESS NOTES Subjective Subjective No new complaints. Objective Objective Vital Signs Date Time Temp Pulse Resp B/P (MAP) Pulse Ox O2 Delivery O2 Flow Rate FiO2 07/15/18 08:37 105 119/64 07/15/18 07:47 96 Nasal Cannula 4.0 07/15/18 07:00 97.8 20 97.8 Intake and Output 07/15/18 07:00 Intake Total 2316 ml Output Total 3550 ml Balance -1234 ml Intake Oral 1650 ml IV Total 666 ml Output Urine Total 3550 ml Physical Exam Physical Exam he is alert and comfortable sitting in bedside chair and he is walking up to 250 ' with roller walker and pain seems to be under better control. Assessment Assessment Problems Medical Problems: (1) Bilateral lower leg cellulitis Status: Acute Plan Plan of Residential with home health follow up when medically stable. Comment Review of Relevant I have reviewed the following items mukund (where applicable) has been applied. Labs Laboratory Tests Test 07/13/18 11:56 07/13/18 16:36 07/13/18 21:08 07/14/18 04:20 Glucose (Fingerstick) 172 mg/dL (70-99) 178 mg/dL (70-99) 139 mg/dL (70-99) White Blood Count 7.6 x10^3/uL (4.0-11.0) Red Blood Count 4.30 x10^6/uL (4.30-5.70) Hemoglobin 10.4 g/dL (13.0-17.5) Hematocrit 33.6 % (39.0-53.0) Mean Corpuscular Volume 78 fL (79-100) Mean Corpuscular Hemoglobin 24 pg (25-35) Mean Corpuscular Hemoglobin Concent 31 g/dL (31-37) Red Cell Distribution Width 20.1 % (11.5-14.5) Platelet Count 251 x10^3/uL (140-400) Neutrophils (%) (Auto) 60 % (31-73) Lymphocytes (%) (Auto) 16 % (24-48) Monocytes (%) (Auto) 16 % (0-9) Eosinophils (%) (Auto) 7 % (0-3) Basophils (%) (Auto) 1 % (0-3) Neutrophils # (Auto) 4.5 x10^3uL (1.8-7.7) Lymphocytes # (Auto) 1.2 x10^3/uL (1.0-4.8) Monocytes # (Auto) 1.2 x10^3/uL (0.0-1.1) Eosinophils # (Auto) 0.6 x10^3/uL (0.0-0.7) Basophils # (Auto) 0.1 x10^3/uL (0.0-0.2) Sodium Level 138 mmol/L (136-145) Potassium Level 3.9 mmol/L (3.5-5.1) Chloride Level 99 mmol/L (98-107) Carbon Dioxide Level 29 mmol/L (21-32) Anion Gap 10 (6-14) Blood Urea Nitrogen 23 mg/dL (8-26) Creatinine 1.0 mg/dL (0.7-1.3) Estimated GFR (Cockcroft-Gault) 97.3 BUN/Creatinine Ratio 23 (6-20) Glucose Level 177 mg/dL (70-99) Calcium Level 8.7 mg/dL (8.5-10.1) Magnesium Level 1.6 mg/dL (1.8-2.4) Total Bilirubin 0.7 mg/dL (0.2-1.0) Aspartate Amino Transf (AST/SGOT) 33 U/L (15-37) Alanine Aminotransferase (ALT/SGPT) 25 U/L (16-63) Alkaline Phosphatase 211 U/L (46-116) Total Protein 8.4 g/dL (6.4-8.2) Albumin 2.8 g/dL (3.4-5.0) Albumin/Globulin Ratio 0.5 (1.0-1.7) Test 07/14/18 08:03 07/14/18 10:27 07/14/18 17:28 07/14/18 20:22 Glucose (Fingerstick) 161 mg/dL (70-99) 240 mg/dL (70-99) 177 mg/dL (70-99) 114 mg/dL (70-99) Test 07/15/18 03:45 07/15/18 07:17 White Blood Count 7.2 x10^3/uL (4.0-11.0) Red Blood Count 4.40 x10^6/uL (4.30-5.70) Hemoglobin 10.5 g/dL (13.0-17.5) Hematocrit 34.7 % (39.0-53.0) Mean Corpuscular Volume 79 fL (79-100) Mean Corpuscular Hemoglobin 24 pg (25-35) Mean Corpuscular Hemoglobin Concent 30 g/dL (31-37) Red Cell Distribution Width 20.5 % (11.5-14.5) Platelet Count 251 x10^3/uL (140-400) Neutrophils (%) (Auto) 60 % (31-73) Lymphocytes (%) (Auto) 15 % (24-48) Monocytes (%) (Auto) 16 % (0-9) Eosinophils (%) (Auto) 7 % (0-3) Basophils (%) (Auto) 1 % (0-3) Neutrophils # (Auto) 4.4 x10^3uL (1.8-7.7) Lymphocytes # (Auto) 1.1 x10^3/uL (1.0-4.8) Monocytes # (Auto) 1.2 x10^3/uL (0.0-1.1) Eosinophils # (Auto) 0.5 x10^3/uL (0.0-0.7) Basophils # (Auto) 0.1 x10^3/uL (0.0-0.2) Sodium Level 138 mmol/L (136-145) Potassium Level 4.7 mmol/L (3.5-5.1) Chloride Level 101 mmol/L (98-107) Carbon Dioxide Level 31 mmol/L (21-32) Anion Gap 6 (6-14) Blood Urea Nitrogen 29 mg/dL (8-26) Creatinine 1.4 mg/dL (0.7-1.3) Estimated GFR (Cockcroft-Gault) 66.0 Glucose Level 337 mg/dL (70-99) Calcium Level 8.3 mg/dL (8.5-10.1) Magnesium Level 2.2 mg/dL (1.8-2.4) Glucose (Fingerstick) 296 mg/dL (70-99) Laboratory Tests Test 07/14/18 10:27 07/14/18 17:28 07/14/18 20:22 07/15/18 03:45 Glucose (Fingerstick) 240 mg/dL (70-99) 177 mg/dL (70-99) 114 mg/dL (70-99) White Blood Count 7.2 x10^3/uL (4.0-11.0) Red Blood Count 4.40 x10^6/uL (4.30-5.70) Hemoglobin 10.5 g/dL (13.0-17.5) Hematocrit 34.7 % (39.0-53.0) Mean Corpuscular Volume 79 fL (79-100) Mean Corpuscular Hemoglobin 24 pg (25-35) Mean Corpuscular Hemoglobin Concent 30 g/dL (31-37) Red Cell Distribution Width 20.5 % (11.5-14.5) Platelet Count 251 x10^3/uL (140-400) Neutrophils (%) (Auto) 60 % (31-73) Lymphocytes (%) (Auto) 15 % (24-48) Monocytes (%) (Auto) 16 % (0-9) Eosinophils (%) (Auto) 7 % (0-3) Basophils (%) (Auto) 1 % (0-3) Neutrophils # (Auto) 4.4 x10^3uL (1.8-7.7) Lymphocytes # (Auto) 1.1 x10^3/uL (1.0-4.8) Monocytes # (Auto) 1.2 x10^3/uL (0.0-1.1) Eosinophils # (Auto) 0.5 x10^3/uL (0.0-0.7) Basophils # (Auto) 0.1 x10^3/uL (0.0-0.2) Sodium Level 138 mmol/L (136-145) Potassium Level 4.7 mmol/L (3.5-5.1) Chloride Level 101 mmol/L (98-107) Carbon Dioxide Level 31 mmol/L (21-32) Anion Gap 6 (6-14) Blood Urea Nitrogen 29 mg/dL (8-26) Creatinine 1.4 mg/dL (0.7-1.3) Estimated GFR (Cockcroft-Gault) 66.0 Glucose Level 337 mg/dL (70-99) Calcium Level 8.3 mg/dL (8.5-10.1) Magnesium Level 2.2 mg/dL (1.8-2.4) Test 07/15/18 07:17 Glucose (Fingerstick) 296 mg/dL (70-99) Microbiology 07/07/18 Blood Culture - Final, Complete NO GROWTH AFTER 5 DAYS Medications Current Medications Ondansetron HCl (Zofran) 4 mg 1X ONCE IV Last administered on 07/07/18 18:36; Start 07/07/18 at 18:15; Stop 07/07/18 at 18:16; Status DC Morphine Sulfate (Morphine Sulfate) 4 mg 1X ONCE IV Last administered on at 18:38; Start 07/07/18 at 18:15; Stop 07/07/18 at 18:16; Status DC Vancomycin HCl (Vanco Per Pharmacy) 1 each PRN DAILY PRN MC SEE COMMENTS Last administered on 07/07/18at 21:02; Start 07/07/18 at 18:45; Stop 07/08/18 at 11:22; Status DC Vancomycin HCl 2 gm/Sodium Chloride 500 ml @ 250 mls/hr 1X ONCE IV Last administered on 07/07/18at 18:54; Start 07/07/18 at 19:00; Stop 07/07/18 at 20:59; Status DC Morphine Sulfate (Morphine Sulfate) 4 mg PRN Q2HR PRN IV PAIN Last administered on 07/08/18at 19:08; Start 07/07/18 at 20:15; Stop 07/08/18 at 20:14; Status DC Acetaminophen (Tylenol) 650 mg PRN Q4HRS PRN PO FEVER; Start 07/07/18 at 20:15; Stop 07/08/18 at 20:14; Status DC Vancomycin HCl 1.75 gm/Sodium Chloride 500 ml @ 250 mls/hr Q8H IV Last administered on 07/08/18at 03:22; Start 07/08/18 at 03:00; Stop 07/08/18 at 11:22; Status DC Vancomycin HCl (Vancomycin Trough Level) 1 each 1X ONCE MC ; Start 07/08/18 at 18:30; Stop 07/08/18 at 18:30; Status DC Albuterol Sulfate (Ventolin Neb Soln) 2.5 mg PRN Q4HRS PRN NEB SHORTNESS OF BREATH Last administered on 07/08/18at 08:01; Start 07/07/18 at 23:15 Bumetanide (Bumex) 1 mg DAILY PO Last administered on 07/08/18 09:06; Start 07/08/18 at 09:00; Stop 07/08/18 at 13:02; Status DC Carvedilol (Coreg) 6.25 mg BIDWMEALS PO Last administered on 07/15/18 08:36; Start 07/08/18 at 08:00 Carvedilol (Coreg) 6.25 mg BIDWMEALS PO ; Start 07/08/18 at 08:00; Status UNV Cetirizine HCl (ZyrTEC) 10 mg DAILY PO Last administered on 07/15/18 08:37; Start 07/08/18 at 09:00 Clopidogrel Bisulfate (Plavix) 75 mg DAILY PO Last administered on 07/15/18 08 :36; Start 07/08/18 at 09:00 Lisinopril (Prinivil) 20 mg DAILY PO Last administered on 07/15/18 08:37; Start 07/08/18 at 09:00 Trimethoprim/ Sulfamethoxazole (Bactrim Ds) 1 tab BID PO ; Start 07/08/18 at 09: 00; Status UNV Pantoprazole Sodium (Protonix) 40 mg DAILYAC PO Last administered on 07/15/18 07:29; Start 07/08/18 at 07:30 Non-Formulary Medication (Doxycycline Monohydrate ) 1 cap BID PO ; Start at 09:00; Status UNV Insulin Glargine (Lantus) 80 units DAILYAC SQ Last administered on 07/08/18 09: 42; Start 07/08/18 at 07:30; Stop 07/08/18 at 10:21; Status DC Non-Formulary Medication (Linaclotide (Linzess)) 145 mcg DAILY07 PO Last administered on 07/09/18 07:00; Start 07/08/18 at 07:00; Stop 07/10/18 at 16:57; Status DC Metformin HCl (Glucophage) 1,000 mg BIDWMEALS PO Last administered on 07/11/18 08:59; Start 07/08/18 at 08:00; Stop 07/11/18 at 19:12; Status DC Montelukast Sodium (Singulair) 10 mg QHS PO Last administered on 07/14/18at 21:21 ; Start 07/08/18 at 21:00 Atorvastatin Calcium (Lipitor) 5 mg QHS PO Last administered on 07/14/18at 21:21 ; Start 07/08/18 at 21:00 Insulin Glargine (Lantus) 80 units 1400 SQ ; Start 07/08/18 at 14:00; Status Cancel Aspirin (Ecotrin) 81 mg DAILYWBKFT PO Last administered on 07/15/18at 08:36; Start 07/08/18 at 11:00 Carvedilol (Coreg) 6.25 mg BIDWMEALS PO ; Start 07/08/18 at 11:00; Status Cancel Famotidine (Pepcid) 20 mg HS PO Last administered on 07/14/18 21:21; Start 07/08 at 21:00 Furosemide (Lasix) 80 mg DAILY PO Last administered on 07/08/18at 12:47; Start at 11:00; Stop 07/08/18 at 13:02; Status DC Gabapentin (Neurontin) 300 mg HS PO Last administered on 07/11/18at 20:32; Start 07/08/18 at 21:00; Stop 07/12/18 at 10:20; Status DC Insulin Glargine (Lantus) 100 units BID SQ ; Start 07/08/18 at 21:00; Status Cancel Insulin Human Lispro (HumaLOG) 70 units TIDWMEALS SQ Last administered on at 08:49; Start 07/08/18 at 12:00 Albuterol/ Ipratropium (Duoneb) 3 ml RTQID NEB Last administered on 07/15/18at 07:47; Start 07/08/18 at 12:00 Bupropion HCl (Wellbutrin Xl) 300 mg DAILY PO Last administered on 07/15/18 08 :37; Start 07/08/18 at 11:00 Non-Formulary Medication (Dexlansoprazole (Dexilant)) 1 cap DAILY PO ; Start 07/09/18 at 09:00; Stop 07/09/18 at 09:00; Status DC Non-Formulary Medication (Glycopyrrolate/ Formoterol Fum (Bevespi Aerosphere Inhaler)) 10.7 gm DAILY IH ; Start 07/09/18 at 09:00; Stop 07/10/18 at 10:43; Status DC Non-Formulary Medication (Linaclotide (Linzess)) 145 mcg DAILY PO ; Start at 09:00; Status UNV Non-Formulary Medication (Metformin Hcl (Glucophage)) 1,000 mg BIDWMEALS PO ; Start 07/08/18 at 17:00; Status UNV Non-Formulary Medication (Montelukast Sodium (Singulair Tablet)) 10 mg HS PO ; Start 07/08/18 at 21:00; Status UNV Non-Formulary Medication (Pravastatin Sodium ) 1 tab QHS PO ; Start 07/08/18 at 21:00; Status UNV Insulin Glargine (Lantus) 80 units BID SQ Last administered on 07/15/18at 08:50 ; Start 07/08/18 at 21:00 Ondansetron HCl (Zofran) 4 mg PRN Q6HRS PRN IV NAUSEA/VOMITING Last administered on 07/08/18 19:26; Start 07/08/18 at 11:15 Nicotine (Nicoderm Cq 21mg) 1 patch DAILY TD Last administered on 07/14/18 09: 15; Start 07/08/18 at 11:30 Albuterol Sulfate (Ventolin Neb Soln) 2.5 mg RTQID NEB ; Start 07/08/18 at 12:00 ; Stop 07/08/18 at 12:01; Status DC Linezolid (Zyvox) 600 mg BID PO Last administered on 07/11/18 09:20; Start 07/08 at 12:00; Stop 07/11/18 at 11:07; Status DC Metronidazole (Flagyl) 500 mg Q12HR PO Last administered on 07/11/18 08:59; Start 07/08/18 at 12:00; Stop 07/11/18 at 11:07; Status DC Fluconazole (Diflucan) 100 mg DAILY PO Last administered on 07/13/18 08:18; Start 07/08/18 at 12:00; Stop 07/13/18 at 09:28; Status DC Cefepime HCl (Maxipime) 2 gm Q12HR IVP Last administered on 07/13/18 08:13; Start 07/08/18 at 12:00; Stop 07/13/18 at 09:28; Status DC Diclofenac Sodium (Voltaren) 1 chung BID TP Last administered on 07/15/18 08:48 ; Start 07/08/18 at 21:00 Metolazone (Zaroxolyn) 5 mg DAILY PO Last administered on 07/15/18 08:38; Start 07/08/18 at 14:00 Furosemide (Lasix) 40 mg 1X ONCE IVP Last administered on 07/08/18 17:56; Start 07/08/18 at 13:00; Stop 07/08/18 at 13:19; Status DC Furosemide (Lasix) 40 mg Q6HRS IVP Last administered on 07/09/18 06:17; Start 07/08/18 at 18:00; Stop 07/09/18 at 11:26; Status DC Diphenhydramine HCl (Benadryl) 25 mg PRN Q6HRS PRN PO ITCHING Last administered on 07/12/18 03:31; Start 07/08/18 at 20:00 Lactobacillus Rhamnosus (Culturelle) 1 cap BID PO Last administered on 08:37; Start 07/08/18 at 21:00 Acetaminophen/ Hydrocodone Bitart (Lortab 5/325) 1 tab PRN Q4HRS PRN PO PAIN Last administered on 07/11/18 06:25; Start 07/09/18 at 10:30; Stop 07/11/18 at 09: 12; Status DC Dobutamine HCl/ Dextrose 250 ml @ 32.318 mls/ hr CONT PRN IV PER PROTOCOL Last administered on 07/14/18 11:33; Start 07/09/18 at 11:30; Stop 07/14/18 at 13: 03; Status DC Furosemide 100 mg/ Sodium Chloride 100 ml @ 5 mls/hr CONT PRN IV SEE I/O RECORD Last administered on 07/14/18 20:15; Start 07/09/18 at 11:15 Methylprednisolone Acetate (DEPO-Medrol 40MG VIAL) 40 mg 1X ONCE IM Last administered on 07/10/18 09:15; Start 07/10/18 at 09:15; Stop 07/10/18 at 09:21; Status DC Bupivacaine HCl (Sensorcaine-Mpf 0.25%) 10 ml 1X ONCE IJ Last administered on 07/10/18 09:15; Start 07/10/18 at 09:15; Stop 07/10/18 at 09:21; Status DC Enoxaparin Sodium (Lovenox 80mg Syringe) 80 mg Q12HR SQ ; Start 07/10/18 at 10:15 ; Stop 07/10/18 at 11:14; Status DC Budesonide (Pulmicort) 0.5 mg RTBID NEB Last administered on 07/15/18 07:47; Start 07/10/18 at 20:00 Budesonide (Pulmicort) 0.5 mg 1X ONCE NEB Last administered on 07/10/18 11:25 ; Start 07/10/18 at 10:15; Stop 07/10/18 at 10:31; Status DC Enoxaparin Sodium (Lovenox 60mg Syringe) 60 mg Q12HR SQ Last administered on 08:37; Start 07/10/18 at 12:00 Lubiprostone (Amitiza) 8 mcg BIDWMEALS PO Last administered on 07/10/18 17:36; Start 07/10/18 at 14:00; Stop 07/10/18 at 20:00; Status DC Non-Formulary Medication (Linaclotide (Linzess)) 145 mcg DAILY07 PO Last administered on 07/15/18 07:30; Start 07/11/18 at 07:00 Zolpidem Tartrate (Ambien) 5 mg PRN QHS PRN PO INSOMNIA Last administered on 22:59; Start 07/10/18 at 18:15 Acetaminophen/ Hydrocodone Bitart (Lortab 10/325) 1 tab PRN Q6HRS PRN PO PAIN Last administered on 07/15/18 07:28; Start 07/11/18 at 09:15 Gabapentin (Neurontin) 300 mg TID PO Last administered on 07/15/18 08:36; Start 07/12/18 at 10:30 Tizanidine HCl (Zanaflex) 4 mg PRN Q8HRS PRN PO MUSCLE SPASMS Last administered on 07/14/18 21:21; Start 07/12/18 at 10:30 Cefdinir (Omnicef) 300 mg BID PO Last administered on 07/15/18at 08:36; Start at 21:00 Fluconazole (Diflucan) 200 mg DAILY PO Last administered on 07/15/18at 08:36; Start 07/14/18 at 09:00 Magnesium Sulfate/ Dextrose 100 ml @ 25 mls/hr 1X ONCE IV Last administered on 07/14/18at 09:50; Start 07/14/18 at 10:00; Stop 07/14/18 at 13:59; Status DC Active Scripts Active Gabapentin (Gabapentin) 300 Mg Capsule 300 Mg PO HS 30 Days Cefdinir 300 Mg Capsule 300 Mg PO BID 7 Days Lantus Solostar (Insulin Glargine,Hum.rec.anlog) 100 Unit/1 Ml Insuln.pen 100 Unit SQ BID Humalog (Insulin Lispro) 100 Unit/1 Ml Vial 70 Unit SQ TIDAC 30 Days Wellbutrin Xl (Bupropion Hcl) 300 Mg Tab.er.24h 1 Tab PO DAILY Furosemide 80 Mg Tablet 80 Mg PO DAILY 30 Days Duoneb 0.5-3(2.5) Mg/3 Ml (Albuterol/Ipratropium) 3 Ml Ampul.neb 3 Ml NEB RTQID 30 Days Glucophage (Metformin Hcl) 1,000 Mg Tablet 1,000 Mg PO BIDWMEALS Lisinopril 20 Mg Tablet 20 Mg PO DAILY Aspirin Ec (Aspirin) 81 Mg Tablet.dr 81 Mg PO DAILYWBKFT Reported Bactrim Ds Tablet (Sulfamethoxazole/Trimethoprim) 1 Each Tablet 1 Tab PO BID Lisinopril 20 Mg Tablet 1 Tab PO DAILY Clopidogrel (Clopidogrel Bisulfate) 75 Mg Tablet 1 Tab PO DAILY Toujeo Solostar (Insulin Glargine,Hum.rec.anlog) 300 Unit/1 Ml Insuln.pen 300 Unit SQ BID Metformin Hcl 1,000 Mg Tablet 1,000 Mg PO BIDWMEALS Singulair Tablet (Montelukast Sodium) 10 Mg Tablet 1 Tab PO DAILY Coreg (Carvedilol) 6.25 Mg Tablet 6.25 Mg PO BIDWMEALS Pravastatin Sodium 20 Mg Tablet 1 Tab PO DAILY Cetirizine Hcl 10 Mg Tablet 1 Tab PO DAILY Bumetanide 1 Mg Tablet 1 Tab PO DAILY Linzess (Linaclotide) 145 Mcg Capsule 145 Mcg PO DAILY07 Dexilant (Dexlansoprazole) 60 Mg Truman. 1 Cap PO DAILY Doxycycline Monohydrate 100 Mg Capsule 1 Cap PO BID Bevespi Aerosphere Inhaler (Glycopyrrolate/Formoterol Fum) 10.7 Gm Hfa.aer.ad 10.7 Gm IH DAILY Carvedilol (Carvedilol) 6.25 Mg Tablet 1 Tab PO BID Pravastatin Sodium 20 Mg Tablet 1 Tab PO QHS Singulair Tablet (Montelukast Sodium) 10 Mg Tablet 10 Mg PO HS Famotidine 20 Mg Tablet 20 Mg PO HS Dexilant (Dexlansoprazole) 60 Mg Truman. 1 Cap PO DAILY Linzess (Linaclotide) 145 Mcg Capsule 145 Mcg PO DAILY Vitals/I & O Vital Sign - Last 24 Hours 07/14/18 07/14/18 07/14/18 07/14/18 10:48 11:39 14:21 15:41 Temp 98.0 97.6 98.0 97.6 Pulse 98 95 Resp 20 20 B/P (MAP) 133/85 (101) 113/55 (74) Pulse Ox 92 98 94 O2 Delivery Room Air Nasal Cannula Room Air Nasal Cannula O2 Flow Rate 3.0 4.0 3.0 4.0 07/14/18 07/14/18 07/14/18 07/14/18 16:32 16:32 19:31 19:36 Temp 98.4 98.4 Pulse 98 92 Resp 21 B/P (MAP) 126/61 104/59 (74) Pulse Ox 94 95 96 O2 Delivery Nasal Cannula Nasal Cannula Nasal Cannula O2 Flow Rate 3.0 4.0 4.0 07/14/18 07/14/18 07/14/18 07/14/18 19:37 20:00 22:59 23:25 Temp 97.7 97.7 Pulse 104 Resp 23 B/P (MAP) 133/74 (93) Pulse Ox 96 96 90 O2 Delivery Nasal Cannula Nasal Cannula Nasal Cannula Room Air O2 Flow Rate 4.0 4.0 4.0 07/14/18 07/15/18 07/15/18 07/15/18 23:59 03:23 07:00 07:47 Temp 97.9 97.8 97.9 97.8 Pulse 106 105 Resp 21 20 B/P (MAP) 127/69 (88) 119/64 (82) Pulse Ox 90 93 94 96 O2 Delivery Nasal Cannula Room Air Nasal Cannula Nasal Cannula O2 Flow Rate 4.0 4.0 4.0 07/15/18 07/15/18 08:36 08:37 Pulse 105 105 B/P (MAP) 119/64 119/64 Intake and Output 07/14/18 07/14/18 07/15/18 15:00 23:00 07:00 Intake Total 1046 ml 750 ml 520 ml Output Total 1100 ml 1200 ml 1250 ml Balance -54 ml -450 ml -730 ml ALVARO RHOADES MD Jul 15, 2018 09:09
--- NOTE | 2018-07-15 10:03 | PDOC ---
CORINA ANN FLORICULTURIST 07/15/18 1003: CARDIO Progress Notes Date and Time Date of Service 07/15/2018 Time of Evaluation 0940 Subjective Subjective: No Chest Pain, No shortness of breath, No Palpitations, Other ( feels better today, able to move around in room without SOA) Vitals Vitals Vital Signs Date Time Temp Pulse Resp B/P (MAP) Pulse Ox O2 Delivery O2 Flow Rate FiO2 07/15/18 08:37 105 119/64 07/15/18 08:28 Nasal Cannula 07/15/18 08:00 4.0 07/15/18 07:47 96 07/15/18 07:00 97.8 20 97.8 Weight Weight [ ] Input and Output Intake and Output Intake and Output 07/15/18 07:00 Intake Total 2316 ml Output Total 3550 ml Balance -1234 ml Intake Oral 1650 ml IV Total 666 ml Output Urine Total 3550 ml Laboratory Labs Laboratory Tests Test 07/14/18 10:27 07/14/18 17:28 07/14/18 20:22 07/15/18 03:45 Glucose (Fingerstick) 240 mg/dL (70-99) 177 mg/dL (70-99) 114 mg/dL (70-99) White Blood Count 7.2 x10^3/uL (4.0-11.0) Red Blood Count 4.40 x10^6/uL (4.30-5.70) Hemoglobin 10.5 g/dL (13.0-17.5) Hematocrit 34.7 % (39.0-53.0) Mean Corpuscular Volume 79 fL (79-100) Mean Corpuscular Hemoglobin 24 pg (25-35) Mean Corpuscular Hemoglobin Concent 30 g/dL (31-37) Red Cell Distribution Width 20.5 % (11.5-14.5) Platelet Count 251 x10^3/uL (140-400) Neutrophils (%) (Auto) 60 % (31-73) Lymphocytes (%) (Auto) 15 % (24-48) Monocytes (%) (Auto) 16 % (0-9) Eosinophils (%) (Auto) 7 % (0-3) Basophils (%) (Auto) 1 % (0-3) Neutrophils # (Auto) 4.4 x10^3uL (1.8-7.7) Lymphocytes # (Auto) 1.1 x10^3/uL (1.0-4.8) Monocytes # (Auto) 1.2 x10^3/uL (0.0-1.1) Eosinophils # (Auto) 0.5 x10^3/uL (0.0-0.7) Basophils # (Auto) 0.1 x10^3/uL (0.0-0.2) Sodium Level 138 mmol/L (136-145) Potassium Level 4.7 mmol/L (3.5-5.1) Chloride Level 101 mmol/L (98-107) Carbon Dioxide Level 31 mmol/L (21-32) Anion Gap 6 (6-14) Blood Urea Nitrogen 29 mg/dL (8-26) Creatinine 1.4 mg/dL (0.7-1.3) Estimated GFR (Cockcroft-Gault) 66.0 Glucose Level 337 mg/dL (70-99) Calcium Level 8.3 mg/dL (8.5-10.1) Magnesium Level 2.2 mg/dL (1.8-2.4) Test 07/15/18 07:17 Glucose (Fingerstick) 296 mg/dL (70-99) Microbiology Micro Microbiology 07/07/18 Blood Culture - Final, Complete NO GROWTH AFTER 5 DAYS Physical Exam HEENT: Neck Supple W Full Motion Chest: Symmetric LUNGS: Other (diminished bases) Heart: S1S2, RRR (SR ), other (distante heart sounds) Abdomen: Other (obese) Extremities: Other (1-2+ bilateral edema from knees up) Neurology: alert, oriented, follow commands Assessment Assessment 1. Acute on chronic combined systolic/diastolic CHF: better compensated 2. Anasarca; improving 3. ICM: LVEF 15-20% 4. CAD: stable clinically 5. Morbid obesity, KATIUSKA, hypoventilation syndrome 6. NURY 7. HTN: controlled 8. DM2/HLP 9. COPD with continued tobaccoism 10. Non-compliance 11. Anemia of chronic disease Recommendations 1. Excellent UOP. Wt doubt accuracy. PCXR today. Off dobutamine. Will convert lasix drip to routine. Will monitor UOP and renal function. 2. Dietitian consult, smoking cessation. Encouraged FR and diet compliance. 3. We will plan for referral to [facility] for long-term heart failure care as he may in the future need heart transplantation or LVAD therapy. 4. We will plan for outpatient ICD implantation when he gets to wt below 400 lbs so that the catheterization table can hold him. 5. DAPT, continue with secondary prevention TISH PONCE MD 07/15/18 2017: CARDIO Progress Notes Plan Plan Pt. seen and examined. Agree with above WOODS MANAGER note. Compliance is a very big issue still. His p.o fluid intake is quite large. I have extensively discussed with him. Ok to DC tomorrow if cr stable on Bumex 1 mg bid and metolazone 5mg TIW. Continue other HF drugs. Supportive care. Thanks CORINA ANN FLORICULTURIST Jul 15, 2018 10:03 TISH PONCE MD Jul 15, 2018 20:17
--- NOTE | 2018-07-15 10:10 | PDOC ---
SUBJECTIVE ROS No new complaints OBJECTIVE Vital Signs Vital Signs Date Time Temp Pulse Resp B/P (MAP) Pulse Ox O2 Delivery O2 Flow Rate FiO2 07/15/18 08:37 105 119/64 07/15/18 08:28 Nasal Cannula 07/15/18 08:00 4.0 07/15/18 07:47 96 07/15/18 07:00 97.8 20 97.8 I & 0 Intake and Output 07/15/18 06:59 Intake Total 2316 ml Output Total 3550 ml Balance -1234 ml Intake Oral 1650 ml IV Total 666 ml Output Urine Total 3550 ml PHYSICAL EXAM Physical Exam Gen: NAD, HEENT: OM moist , On RA NECK: Supple. LUNGS: Clear to auscultation. HEART: S1, S2. ABDOMEN: Morbidly obese, pitting edema lower abdominal area., improved some EXTREMITIES: chronic swelling of the bilateral lower extremities, left greater than right mostly in thighs SKIN: No rash NEUROLOGIC: Nonfocal No garcia DIAGNOSIS/ASSESSMENT Assessment & Plan Anasarca- Cardiorenal On Lasix drip , Dobutamine and Metolazone Good response,Dobutamine dced can be switched from IV Lasix drip Defer to cardiology NURY -Cardiorenal, renal function improving Hyperkalemia- resolved Hypomag- Replace LE cellulitis- ID Has been on multiple ABx as per Pt Most Recent Bactrim prior to admission Morbid Obesity CM with EF of 15-20% Cardiology following Pulm Infiltrates CT scan stable findings Hyperkalemia Severe KATIUSKA- Non compliant Chronic Anemia CAD Will sign Off, Cardiology managing. COMMENT/RELEVANT DATA Meds Current Medications Medications (Trade) Dose Ordered Sig/Linden Start Time Stop Time Status Last Admin Dose Admin Acetaminophen (Tylenol) 650 mg PRN Q4HRS PRN 07/07/18 20:15 07/08/18 20:14 DC Acetaminophen/ Hydrocodone Bitart (Lortab 10/325) 1 tab PRN Q6HRS PRN 07/11/18 09:15 07/15/18 07:28 1 TAB Acetaminophen/ Hydrocodone Bitart (Lortab 5/325) 1 tab PRN Q4HRS PRN 07/09/18 10:30 07/11/18 09:12 DC 07/11/18 06:25 1 TAB Albuterol Sulfate (Ventolin Neb Soln) 2.5 mg RTQID 07/08/18 12:00 07/08/18 12:01 DC Albuterol/ Ipratropium (Duoneb) 3 ml RTQID 07/08/18 12:00 07/15/18 07:47 3 ML Aspirin (Ecotrin) 81 mg [id number] 07/08/18 11:00 07/15/18 08:36 81 MG Atorvastatin Calcium (Lipitor) 5 mg QHS 07/08/18 21:00 07/14/18 21:21 5 MG Budesonide (Pulmicort) 0.5 mg 1X ONCE 07/10/18 10:15 07/10/18 10:31 DC 07/10/18 11:25 0.5 MG Bumetanide (Bumex) 1 mg DAILY 07/08/18 09:00 07/08/18 13:02 DC 07/08/18 09:06 1 MG Bupivacaine HCl (Sensorcaine-Mpf 0.25%) 10 ml 1X ONCE 07/10/18 09:15 07/10/18 09:21 DC 07/10/18 09:15 10 ML Bupropion HCl (Wellbutrin Xl) 300 mg DAILY 07/08/18 11:00 07/15/18 08:37 300 MG Carvedilol (Coreg) 6.25 mg BIDWMEALS 07/08/18 11:00 Cancel Cefdinir (Omnicef) 300 mg BID 07/13/18 21:00 07/15/18 08:36 300 MG Cefepime HCl (Maxipime) 2 gm Q12HR 07/08/18 12:00 07/13/18 09:28 DC 07/13/18 08:13 2 GM Cetirizine HCl (ZyrTEC) 10 mg DAILY 07/08/18 09:00 07/15/18 08:37 10 MG Clopidogrel Bisulfate (Plavix) 75 mg DAILY 07/08/18 09:00 07/15/18 08:36 75 MG Diclofenac Sodium (Voltaren) 1 chung BID 07/08/18 21:00 07/15/18 08:48 1 CHUNG Diphenhydramine HCl (Benadryl) 25 mg PRN Q6HRS PRN 07/08/18 20:00 07/12/18 03:31 25 MG Dobutamine HCl/ Dextrose 250 ml @ 32.318 mls/ hr CONT PRN 07/09/18 11:30 07/14/18 13:03 DC 07/14/18 11:33 32.318 MLS/HR Enoxaparin Sodium (Lovenox 60mg Syringe) 60 mg Q12HR 07/10/18 12:00 07/15/18 08:37 60 MG Enoxaparin Sodium (Lovenox 80mg Syringe) 80 mg Q12HR 07/10/18 10:15 07/10/18 11:14 DC Famotidine (Pepcid) 20 mg HS 07/08/18 21:00 07/14/18 21:21 20 MG Fluconazole (Diflucan) 200 mg DAILY 07/14/18 09:00 07/15/18 08:36 200 MG Furosemide (Lasix) 40 mg Q6HRS 07/08/18 18:00 07/09/18 11:26 DC 07/09/18 06:17 40 MG Furosemide 100 mg/ Sodium Chloride 100 ml @ 5 mls/hr CONT PRN 07/09/18 11:15 07/14/18 20:15 5 MLS/HR Gabapentin (Neurontin) 300 mg TID 07/12/18 10:30 07/15/18 08:36 300 MG Insulin Glargine (Lantus) 80 units BID 07/08/18 21:00 07/15/18 08:50 80 UNITS Insulin Human Lispro (HumaLOG) 70 units TIDWMEALS 07/08/18 12:00 07/15/18 08:49 60 UNITS Lactobacillus Rhamnosus (Culturelle) 1 cap BID 07/08/18 21:00 07/15/18 08:37 1 CAP Linezolid (Zyvox) 600 mg BID 07/08/18 12:00 07/11/18 11:07 DC 07/11/18 09:20 600 MG Lisinopril (Prinivil) 20 mg DAILY 07/08/18 09:00 07/15/18 08:37 20 MG Lubiprostone (Amitiza) 8 mcg BIDWMEALS 07/10/18 14:00 07/10/18 20:00 DC 07/10/18 17:36 8 MCG Magnesium Sulfate/ Dextrose 100 ml @ 25 mls/hr 1X ONCE 07/14/18 10:00 07/14/18 13:59 DC 07/14/18 09:50 25 MLS/HR Metformin HCl (Glucophage) 1,000 mg BIDWMEALS 07/08/18 08:00 07/11/18 19:12 DC 07/11/18 08:59 1,000 MG Methylprednisolone Acetate (DEPO-Medrol 40MG VIAL) 40 mg 1X ONCE 07/10/18 09:15 07/10/18 09:21 DC 07/10/18 09:15 40 MG Metolazone (Zaroxolyn) 5 mg DAILY 07/08/18 14:00 07/15/18 08:38 5 MG Metronidazole (Flagyl) 500 mg Q12HR 07/08/18 12:00 07/11/18 11:07 DC 07/11/18 08:59 500 MG Montelukast Sodium (Singulair) 10 mg QHS 07/08/18 21:00 07/14/18 21:21 10 MG Morphine Sulfate (Morphine Sulfate) 4 mg PRN Q2HR PRN 07/07/18 20:15 07/08/18 20:14 DC 07/08/18 19:08 4 MG Nicotine (Nicoderm Cq 21mg) 1 patch DAILY 07/08/18 11:30 07/14/18 09:15 1 PATCH Non-Formulary Medication (Dexlansoprazole (Dexilant)) 1 cap DAILY 07/09/18 09:00 07/09/18 09:00 DC Non-Formulary Medication (Doxycycline Monohydrate ) 1 cap BID 07/08/18 09:00 UNV Non-Formulary Medication (Glycopyrrolate/ Formoterol Fum (Bevespi Aerosphere Inhaler)) 10.7 gm DAILY 07/09/18 09:00 07/10/18 10:43 DC Non-Formulary Medication (Linaclotide (Linzess)) 145 mcg DAILY07 07/11/18 07:00 07/15/18 07:30 145 MCG Non-Formulary Medication (Metformin Hcl (Glucophage)) 1,000 mg BIDWMEALS 07/08/18 17:00 UNV Non-Formulary Medication (Montelukast Sodium (Singulair Tablet)) 10 mg HS 07/08/18 21:00 UNV Non-Formulary Medication (Pravastatin Sodium ) 1 tab QHS 07/08/18 21:00 UNV Ondansetron HCl (Zofran) 4 mg PRN Q6HRS PRN 07/08/18 11:15 07/08/18 19:26 4 MG Pantoprazole Sodium (Protonix) 40 mg DAILYAC 07/08/18 07:30 07/15/18 07:29 40 MG Tizanidine HCl (Zanaflex) 4 mg PRN Q8HRS PRN 07/12/18 10:30 07/14/18 21:21 4 MG Trimethoprim/ Sulfamethoxazole (Bactrim Ds) 1 tab BID 07/08/18 09:00 UNV Vancomycin HCl (Vanco Per Pharmacy) 1 each PRN DAILY PRN 07/07/18 18:45 07/08/18 11:22 DC 07/07/18 21:02 1 EACH Vancomycin HCl (Vancomycin Trough Level) 1 each 1X ONCE 07/08/18 18:30 07/08/18 18:30 DC Vancomycin HCl 1.75 gm/Sodium Chloride 500 ml @ 250 mls/hr Q8H 07/08/18 03:00 07/08/18 11:22 DC 07/08/18 03:22 250 MLS/HR Vancomycin HCl 2 gm/Sodium Chloride 500 ml @ 250 mls/hr 1X ONCE 07/07/18 19:00 07/07/18 20:59 DC 07/07/18 18:54 250 MLS/HR Zolpidem Tartrate (Ambien) 5 mg PRN QHS PRN 07/10/18 18:15 07/14/18 22:59 5 MG Lab Laboratory Tests Test 07/14/18 10:27 07/14/18 17:28 07/14/18 20:22 07/15/18 03:45 Glucose (Fingerstick) 240 mg/dL (70-99) 177 mg/dL (70-99) 114 mg/dL (70-99) White Blood Count 7.2 x10^3/uL (4.0-11.0) Red Blood Count 4.40 x10^6/uL (4.30-5.70) Hemoglobin 10.5 g/dL (13.0-17.5) Hematocrit 34.7 % (39.0-53.0) Mean Corpuscular Volume 79 fL (79-100) Mean Corpuscular Hemoglobin 24 pg (25-35) Mean Corpuscular Hemoglobin Concent 30 g/dL (31-37) Red Cell Distribution Width 20.5 % (11.5-14.5) Platelet Count 251 x10^3/uL (140-400) Neutrophils (%) (Auto) 60 % (31-73) Lymphocytes (%) (Auto) 15 % (24-48) Monocytes (%) (Auto) 16 % (0-9) Eosinophils (%) (Auto) 7 % (0-3) Basophils (%) (Auto) 1 % (0-3) Neutrophils # (Auto) 4.4 x10^3uL (1.8-7.7) Lymphocytes # (Auto) 1.1 x10^3/uL (1.0-4.8) Monocytes # (Auto) 1.2 x10^3/uL (0.0-1.1) Eosinophils # (Auto) 0.5 x10^3/uL (0.0-0.7) Basophils # (Auto) 0.1 x10^3/uL (0.0-0.2) Sodium Level 138 mmol/L (136-145) Potassium Level 4.7 mmol/L (3.5-5.1) Chloride Level 101 mmol/L (98-107) Carbon Dioxide Level 31 mmol/L (21-32) Anion Gap 6 (6-14) Blood Urea Nitrogen 29 mg/dL (8-26) Creatinine 1.4 mg/dL (0.7-1.3) Estimated GFR (Cockcroft-Gault) 66.0 Glucose Level 337 mg/dL (70-99) Calcium Level 8.3 mg/dL (8.5-10.1) Magnesium Level 2.2 mg/dL (1.8-2.4) Test 07/15/18 07:17 Glucose (Fingerstick) 296 mg/dL (70-99) Results All relevant outside records, renal labs, imaging studies, telemetry/EKG's were reviewed. GILMA GARCES MD Jul 15, 2018 10:10
--- NOTE | 2018-07-15 10:32 | PDOC ---
IM PROGRESS NOTES- Subjective Subjective No complaints of dyspnea or chest pains. Patient states that the he had drank 6 L of fluids yesterday. Objective Vitals Vital Signs Date Time Temp Pulse Resp B/P (MAP) Pulse Ox O2 Delivery O2 Flow Rate FiO2 07/15/18 08:37 105 119/64 07/15/18 08:28 Nasal Cannula 07/15/18 08:00 4.0 07/15/18 07:47 96 07/15/18 07:00 97.8 20 97.8 Input & Output Intake and Output 07/15/18 06:59 Intake Total 2316 ml Output Total 3550 ml Balance -1234 ml Intake Oral 1650 ml IV Total 666 ml Output Urine Total 3550 ml Physical Exam Physical Exam General appearance - alert,ill appearing, and in mild distress and oriented to person, place, and time Mental Status - alert, oriented to person, place, and time, affect appropriate to mood Head - normal Chest -decreased breath sounds at bases Heart - S1 and S2 normal Abdomen - soft, nontender, nondistended, no masses or organomegaly. Patient has a large pannus with edema of the abdomen and thighs Neurological - alert and oriented Musculoskeletal - no muscular tenderness noted Extremities - edema increased Skin - warm and dry no redness of both thighs Labs Laboratory Tests Test 07/13/18 11:56 07/13/18 16:36 07/13/18 21:08 07/14/18 04:20 Glucose (Fingerstick) 172 mg/dL (70-99) 178 mg/dL (70-99) 139 mg/dL (70-99) White Blood Count 7.6 x10^3/uL (4.0-11.0) Red Blood Count 4.30 x10^6/uL (4.30-5.70) Hemoglobin 10.4 g/dL (13.0-17.5) Hematocrit 33.6 % (39.0-53.0) Mean Corpuscular Volume 78 fL (79-100) Mean Corpuscular Hemoglobin 24 pg (25-35) Mean Corpuscular Hemoglobin Concent 31 g/dL (31-37) Red Cell Distribution Width 20.1 % (11.5-14.5) Platelet Count 251 x10^3/uL (140-400) Neutrophils (%) (Auto) 60 % (31-73) Lymphocytes (%) (Auto) 16 % (24-48) Monocytes (%) (Auto) 16 % (0-9) Eosinophils (%) (Auto) 7 % (0-3) Basophils (%) (Auto) 1 % (0-3) Neutrophils # (Auto) 4.5 x10^3uL (1.8-7.7) Lymphocytes # (Auto) 1.2 x10^3/uL (1.0-4.8) Monocytes # (Auto) 1.2 x10^3/uL (0.0-1.1) Eosinophils # (Auto) 0.6 x10^3/uL (0.0-0.7) Basophils # (Auto) 0.1 x10^3/uL (0.0-0.2) Sodium Level 138 mmol/L (136-145) Potassium Level 3.9 mmol/L (3.5-5.1) Chloride Level 99 mmol/L (98-107) Carbon Dioxide Level 29 mmol/L (21-32) Anion Gap 10 (6-14) Blood Urea Nitrogen 23 mg/dL (8-26) Creatinine 1.0 mg/dL (0.7-1.3) Estimated GFR (Cockcroft-Gault) 97.3 BUN/Creatinine Ratio 23 (6-20) Glucose Level 177 mg/dL (70-99) Calcium Level 8.7 mg/dL (8.5-10.1) Magnesium Level 1.6 mg/dL (1.8-2.4) Total Bilirubin 0.7 mg/dL (0.2-1.0) Aspartate Amino Transf (AST/SGOT) 33 U/L (15-37) Alanine Aminotransferase (ALT/SGPT) 25 U/L (16-63) Alkaline Phosphatase 211 U/L (46-116) Total Protein 8.4 g/dL (6.4-8.2) Albumin 2.8 g/dL (3.4-5.0) Albumin/Globulin Ratio 0.5 (1.0-1.7) Test 07/14/18 08:03 07/14/18 10:27 07/14/18 17:28 07/14/18 20:22 Glucose (Fingerstick) 161 mg/dL (70-99) 240 mg/dL (70-99) 177 mg/dL (70-99) 114 mg/dL (70-99) Test 07/15/18 03:45 07/15/18 07:17 White Blood Count 7.2 x10^3/uL (4.0-11.0) Red Blood Count 4.40 x10^6/uL (4.30-5.70) Hemoglobin 10.5 g/dL (13.0-17.5) Hematocrit 34.7 % (39.0-53.0) Mean Corpuscular Volume 79 fL (79-100) Mean Corpuscular Hemoglobin 24 pg (25-35) Mean Corpuscular Hemoglobin Concent 30 g/dL (31-37) Red Cell Distribution Width 20.5 % (11.5-14.5) Platelet Count 251 x10^3/uL (140-400) Neutrophils (%) (Auto) 60 % (31-73) Lymphocytes (%) (Auto) 15 % (24-48) Monocytes (%) (Auto) 16 % (0-9) Eosinophils (%) (Auto) 7 % (0-3) Basophils (%) (Auto) 1 % (0-3) Neutrophils # (Auto) 4.4 x10^3uL (1.8-7.7) Lymphocytes # (Auto) 1.1 x10^3/uL (1.0-4.8) Monocytes # (Auto) 1.2 x10^3/uL (0.0-1.1) Eosinophils # (Auto) 0.5 x10^3/uL (0.0-0.7) Basophils # (Auto) 0.1 x10^3/uL (0.0-0.2) Sodium Level 138 mmol/L (136-145) Potassium Level 4.7 mmol/L (3.5-5.1) Chloride Level 101 mmol/L (98-107) Carbon Dioxide Level 31 mmol/L (21-32) Anion Gap 6 (6-14) Blood Urea Nitrogen 29 mg/dL (8-26) Creatinine 1.4 mg/dL (0.7-1.3) Estimated GFR (Cockcroft-Gault) 66.0 Glucose Level 337 mg/dL (70-99) Calcium Level 8.3 mg/dL (8.5-10.1) Magnesium Level 2.2 mg/dL (1.8-2.4) Glucose (Fingerstick) 296 mg/dL (70-99) Laboratory Tests Test 07/14/18 17:28 07/14/18 20:22 07/15/18 03:45 07/15/18 07:17 Glucose (Fingerstick) 177 mg/dL (70-99) 114 mg/dL (70-99) 296 mg/dL (70-99) White Blood Count 7.2 x10^3/uL (4.0-11.0) Red Blood Count 4.40 x10^6/uL (4.30-5.70) Hemoglobin 10.5 g/dL (13.0-17.5) Hematocrit 34.7 % (39.0-53.0) Mean Corpuscular Volume 79 fL (79-100) Mean Corpuscular Hemoglobin 24 pg (25-35) Mean Corpuscular Hemoglobin Concent 30 g/dL (31-37) Red Cell Distribution Width 20.5 % (11.5-14.5) Platelet Count 251 x10^3/uL (140-400) Neutrophils (%) (Auto) 60 % (31-73) Lymphocytes (%) (Auto) 15 % (24-48) Monocytes (%) (Auto) 16 % (0-9) Eosinophils (%) (Auto) 7 % (0-3) Basophils (%) (Auto) 1 % (0-3) Neutrophils # (Auto) 4.4 x10^3uL (1.8-7.7) Lymphocytes # (Auto) 1.1 x10^3/uL (1.0-4.8) Monocytes # (Auto) 1.2 x10^3/uL (0.0-1.1) Eosinophils # (Auto) 0.5 x10^3/uL (0.0-0.7) Basophils # (Auto) 0.1 x10^3/uL (0.0-0.2) Sodium Level 138 mmol/L (136-145) Potassium Level 4.7 mmol/L (3.5-5.1) Chloride Level 101 mmol/L (98-107) Carbon Dioxide Level 31 mmol/L (21-32) Anion Gap 6 (6-14) Blood Urea Nitrogen 29 mg/dL (8-26) Creatinine 1.4 mg/dL (0.7-1.3) Estimated GFR (Cockcroft-Gault) 66.0 Glucose Level 337 mg/dL (70-99) Calcium Level 8.3 mg/dL (8.5-10.1) Magnesium Level 2.2 mg/dL (1.8-2.4) Assessment Assessment Problems Medical Problems: (1) Bilateral lower leg cellulitis Status: Acute IMPRESSION: 1. Possible cellulitis of the lower extremities. 2. Chronic edema of both lower extremities and lymphedema. 3. 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 4. Respiratory failure, hypoxic. 5. Morbid obesity. 6. Obstructive sleep apnea, CPAP, noncompliant. 7. Diabetes mellitus type 2, insulin-dependent, noncompliant. 8. Chronic obstructive pulmonary disease. 9. Hyperkalemia. 10. Slow transit constipation. 11. Osteoarthritis of both knees. 12. Physical deconditioning. 13. History of right lower lung nodule. 14. Gastroesophageal reflux disease with esophagitis. 15. Mixed hyperlipidemia. 16. Noncompliance. 17. Anemia of chronic disease. 18. Coronary artery disease with 2-vessel coronary artery disease status post drug-eluting stent of the right coronary artery on 04/03/2017. PLAN: His admission weight was 475 pounds now it is 434 pounds. on iv lasix drip+ dobutamine drip continue Neurontin and tizanidine for muscle spasms. Potassium is 4.6 today magnesium is pending. echo 15%. renal consult. monitor kidney function continue consultation with Dr. Valladares and Dr. Boggs morbid obesity. rehab consult appreciated discussed with Dr. Willis. Hold off on injections in the knees. fluid restriction extensively discussed with the patient and the family. Noncompliance Hypomagnesemia- replace cellulitis of the thighs-improving. Congestive heart failure- dobutamine has been stopped. Continue IV Lasix and metolazone. Creatinine has increased to 1.4. Monitor [employer] is planning to place AICD after his weight is decreased to 400 pounds. He would also like to refer him to heart failure clinic. Plan Plan For more details regarding further plans, please refer to the orders. PADDY LINCOLN MD Jul 15, 2018 10:32
--- NOTE | 2018-07-15 10:42 | PDOC ---
PULMONARY PROGRESS NOTES Subjective sob better, no cough, no pain Vitals Vital Signs Date Time Temp Pulse Resp B/P (MAP) Pulse Ox O2 Delivery O2 Flow Rate FiO2 07/15/18 08:37 105 119/64 07/15/18 08:28 Nasal Cannula 07/15/18 08:00 4.0 07/15/18 07:47 96 07/15/18 07:00 97.8 20 97.8 General: Alert, No acute distress HEENT: Other (nc at perrl ) Lungs: Other (decrease bases) Cardiovascular: S1, S2 Abdomen: Soft, Non-tender, Other (morbidly obese) Extremities: Other (2+edema) Skin: Warm Labs Laboratory Tests Test 07/13/18 11:56 07/13/18 16:36 07/13/18 21:08 07/14/18 04:20 Glucose (Fingerstick) 172 mg/dL (70-99) 178 mg/dL (70-99) 139 mg/dL (70-99) White Blood Count 7.6 x10^3/uL (4.0-11.0) Red Blood Count 4.30 x10^6/uL (4.30-5.70) Hemoglobin 10.4 g/dL (13.0-17.5) Hematocrit 33.6 % (39.0-53.0) Mean Corpuscular Volume 78 fL (79-100) Mean Corpuscular Hemoglobin 24 pg (25-35) Mean Corpuscular Hemoglobin Concent 31 g/dL (31-37) Red Cell Distribution Width 20.1 % (11.5-14.5) Platelet Count 251 x10^3/uL (140-400) Neutrophils (%) (Auto) 60 % (31-73) Lymphocytes (%) (Auto) 16 % (24-48) Monocytes (%) (Auto) 16 % (0-9) Eosinophils (%) (Auto) 7 % (0-3) Basophils (%) (Auto) 1 % (0-3) Neutrophils # (Auto) 4.5 x10^3uL (1.8-7.7) Lymphocytes # (Auto) 1.2 x10^3/uL (1.0-4.8) Monocytes # (Auto) 1.2 x10^3/uL (0.0-1.1) Eosinophils # (Auto) 0.6 x10^3/uL (0.0-0.7) Basophils # (Auto) 0.1 x10^3/uL (0.0-0.2) Sodium Level 138 mmol/L (136-145) Potassium Level 3.9 mmol/L (3.5-5.1) Chloride Level 99 mmol/L (98-107) Carbon Dioxide Level 29 mmol/L (21-32) Anion Gap 10 (6-14) Blood Urea Nitrogen 23 mg/dL (8-26) Creatinine 1.0 mg/dL (0.7-1.3) Estimated GFR (Cockcroft-Gault) 97.3 BUN/Creatinine Ratio 23 (6-20) Glucose Level 177 mg/dL (70-99) Calcium Level 8.7 mg/dL (8.5-10.1) Magnesium Level 1.6 mg/dL (1.8-2.4) Total Bilirubin 0.7 mg/dL (0.2-1.0) Aspartate Amino Transf (AST/SGOT) 33 U/L (15-37) Alanine Aminotransferase (ALT/SGPT) 25 U/L (16-63) Alkaline Phosphatase 211 U/L (46-116) Total Protein 8.4 g/dL (6.4-8.2) Albumin 2.8 g/dL (3.4-5.0) Albumin/Globulin Ratio 0.5 (1.0-1.7) Test 07/14/18 08:03 07/14/18 10:27 07/14/18 17:28 07/14/18 20:22 Glucose (Fingerstick) 161 mg/dL (70-99) 240 mg/dL (70-99) 177 mg/dL (70-99) 114 mg/dL (70-99) Test 07/15/18 03:45 07/15/18 07:17 White Blood Count 7.2 x10^3/uL (4.0-11.0) Red Blood Count 4.40 x10^6/uL (4.30-5.70) Hemoglobin 10.5 g/dL (13.0-17.5) Hematocrit 34.7 % (39.0-53.0) Mean Corpuscular Volume 79 fL (79-100) Mean Corpuscular Hemoglobin 24 pg (25-35) Mean Corpuscular Hemoglobin Concent 30 g/dL (31-37) Red Cell Distribution Width 20.5 % (11.5-14.5) Platelet Count 251 x10^3/uL (140-400) Neutrophils (%) (Auto) 60 % (31-73) Lymphocytes (%) (Auto) 15 % (24-48) Monocytes (%) (Auto) 16 % (0-9) Eosinophils (%) (Auto) 7 % (0-3) Basophils (%) (Auto) 1 % (0-3) Neutrophils # (Auto) 4.4 x10^3uL (1.8-7.7) Lymphocytes # (Auto) 1.1 x10^3/uL (1.0-4.8) Monocytes # (Auto) 1.2 x10^3/uL (0.0-1.1) Eosinophils # (Auto) 0.5 x10^3/uL (0.0-0.7) Basophils # (Auto) 0.1 x10^3/uL (0.0-0.2) Sodium Level 138 mmol/L (136-145) Potassium Level 4.7 mmol/L (3.5-5.1) Chloride Level 101 mmol/L (98-107) Carbon Dioxide Level 31 mmol/L (21-32) Anion Gap 6 (6-14) Blood Urea Nitrogen 29 mg/dL (8-26) Creatinine 1.4 mg/dL (0.7-1.3) Estimated GFR (Cockcroft-Gault) 66.0 Glucose Level 337 mg/dL (70-99) Calcium Level 8.3 mg/dL (8.5-10.1) Magnesium Level 2.2 mg/dL (1.8-2.4) Glucose (Fingerstick) 296 mg/dL (70-99) Laboratory Tests Test 07/14/18 17:28 07/14/18 20:22 07/15/18 03:45 07/15/18 07:17 Glucose (Fingerstick) 177 mg/dL (70-99) 114 mg/dL (70-99) 296 mg/dL (70-99) White Blood Count 7.2 x10^3/uL (4.0-11.0) Red Blood Count 4.40 x10^6/uL (4.30-5.70) Hemoglobin 10.5 g/dL (13.0-17.5) Hematocrit 34.7 % (39.0-53.0) Mean Corpuscular Volume 79 fL (79-100) Mean Corpuscular Hemoglobin 24 pg (25-35) Mean Corpuscular Hemoglobin Concent 30 g/dL (31-37) Red Cell Distribution Width 20.5 % (11.5-14.5) Platelet Count 251 x10^3/uL (140-400) Neutrophils (%) (Auto) 60 % (31-73) Lymphocytes (%) (Auto) 15 % (24-48) Monocytes (%) (Auto) 16 % (0-9) Eosinophils (%) (Auto) 7 % (0-3) Basophils (%) (Auto) 1 % (0-3) Neutrophils # (Auto) 4.4 x10^3uL (1.8-7.7) Lymphocytes # (Auto) 1.1 x10^3/uL (1.0-4.8) Monocytes # (Auto) 1.2 x10^3/uL (0.0-1.1) Eosinophils # (Auto) 0.5 x10^3/uL (0.0-0.7) Basophils # (Auto) 0.1 x10^3/uL (0.0-0.2) Sodium Level 138 mmol/L (136-145) Potassium Level 4.7 mmol/L (3.5-5.1) Chloride Level 101 mmol/L (98-107) Carbon Dioxide Level 31 mmol/L (21-32) Anion Gap 6 (6-14) Blood Urea Nitrogen 29 mg/dL (8-26) Creatinine 1.4 mg/dL (0.7-1.3) Estimated GFR (Cockcroft-Gault) 66.0 Glucose Level 337 mg/dL (70-99) Calcium Level 8.3 mg/dL (8.5-10.1) Magnesium Level 2.2 mg/dL (1.8-2.4) Medications Active Scripts Medications Dose Route/Sig Max Daily Dose Days Date Category Bactrim Ds Tablet (Sulfamethoxazole/Trimethoprim) 1 Each Tablet 1 Tab PO BID 07/07/18 Reported Lisinopril 20 Mg Tablet 1 Tab PO DAILY 07/07/18 Reported Clopidogrel (Clopidogrel Bisulfate) 75 Mg Tablet 1 Tab PO DAILY 07/07/18 Reported Toudelfinoo Solostar (Insulin Glargine,Hum.rec.anlog) 300 Unit/1 Ml Insuln.pen 300 Unit SQ BID 07/07/18 Reported Metformin Hcl 1,000 Mg Tablet 1,000 Mg PO BIDWMEALS 07/07/18 Reported Singulair Tablet (Montelukast Sodium) 10 Mg Tablet 1 Tab PO DAILY 07/07/18 Reported Coreg (Carvedilol) 6.25 Mg Tablet 6.25 Mg PO BIDWMEALS 07/07/18 Reported Pravastatin Sodium 20 Mg Tablet 1 Tab PO DAILY 07/07/18 Reported Cetirizine Hcl 10 Mg Tablet 1 Tab PO DAILY 07/07/18 Reported Bumetanide 1 Mg Tablet 1 Tab PO DAILY 07/07/18 Reported Linzess (Linaclotide) 145 Mcg Capsule 145 Mcg PO DAILY07 07/07/18 Reported Dexilant (Dexlansoprazole) 60 Mg Cap.mp 1 Cap PO DAILY 07/07/18 Reported Doxycycline Monohydrate 100 Mg Capsule 1 Cap PO BID 07/07/18 Reported Gabapentin (Gabapentin) 300 Mg Capsule 300 Mg PO HS 30 06/04/18 Rx Cefdinir 300 Mg Capsule 300 Mg PO BID 7 06/04/18 Rx Lantus Solostar (Insulin Glargine,Hum.rec.anlog) 100 Unit/1 Ml Insuln.pen 100 Unit SQ BID 06/04/18 Rx Humalog (Insulin Lispro) 100 Unit/1 Ml Vial 70 Unit SQ TIDAC 30 06/04/18 Rx Bevespi Aerosphere Inhaler (Glycopyrrolate/Formoterol Fum) 10.7 Gm Hfa.aer.ad 10.7 Gm IH DAILY 05/31/18 Reported Wellbutrin Xl (Bupropion Hcl) 300 Mg Tab.er.24h 1 Tab PO DAILY 01/19/18 Rx Furosemide 80 Mg Tablet 80 Mg PO DAILY 30 01/19/18 Rx Duoneb 0.5-3(2.5) Mg/3 Ml (Albuterol/Ipratropium) 3 Ml Ampul.neb 3 Ml NEB RTQID 30 01/19/18 Rx Carvedilol (Carvedilol) 6.25 Mg Tablet 1 Tab PO BID 01/15/18 Reported Pravastatin Sodium 20 Mg Tablet 1 Tab PO QHS 01/15/18 Reported Singulair Tablet (Montelukast Sodium) 10 Mg Tablet 10 Mg PO HS 01/15/18 Reported Famotidine 20 Mg Tablet 20 Mg PO HS 01/15/18 Reported Dexilant (Dexlansoprazole) 60 Mg Cap. 1 Cap PO DAILY 01/15/18 Reported Linzess (Linaclotide) 145 Mcg Capsule 145 Mcg PO DAILY 01/15/18 Reported Glucophage (Metformin Hcl) 1,000 Mg Tablet 1,000 Mg PO BIDWMEALS 04/04/17 Rx Lisinopril 20 Mg Tablet 20 Mg PO DAILY 04/04/17 Rx Aspirin Ec (Aspirin) 81 Mg Tablet. 81 Mg PO DAILYWBKFT 04/04/17 Rx Impression . 1. Acute hypoxic respiratory failure secondary to multifactorial etiologies includes combination of underlying chronic obstructive pulmonary disease with exacerbation, acute on chronic systolic heart failure with an ejection fraction now of of 15-20% and 75-pound weight gain in the last 6 months. 2. Abnormal previous CT chest and chest x-ray with bilateral interstitial infiltrates. This is a patient with severe cardiomyopathy and a two-vessel percutaneous coronary intervention done last year. I suspect ongoing systolic heart failure and less likely ILD. 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 Obstructive sleep apnea, Not able to picking tech CPAP yet. Poor compliance 4. Lower extremity cellulitis and lymphedema. 5. Morbid obesity. 6. Severe cardiomyopathy with previous echo with an ejection fraction of 15-20% and status post percutaneous coronary intervention of right coronary artery. 7. H/O Severe [place]KA 8. CKD Plan . 1. Discussed with the patient the importance of losing weight. gained 75 pounds in the last 6 months. 2. Continue present oxygen. 3. lasix drip, monitor renal function/ off Dobutamine drip per cardiology 4. empiric CPAP qhs in the hospital, the importance of [place] tx discussed, advised to use cpap during sleep. 5. follow cardiology rec 6. Set up CPAP as an outpatient. 7. Smoking cessation counseling provided. 8. CT chest reviewed. Not sig changed from previous one/ suspect ongoing mild CHF 9. f/u cxr today discussed w LORI Tena MD Jul 15, 2018 10:42
[2018-07-15 11:00] VITALS: BP 137/79
--- NOTE | 2018-07-15 11:06 | NUR ---
SS following up with discharge planning. Pt agreeable to home healthcare with [facility], ; fax [phone]. SS will continue to follow for discharge planning.
--- NOTE | 2018-07-15 11:26 | RAD ---
CHEST AP ONLY Clinical indications: CHF. Follow-up study COMPARISON: July 14, 2018. Findings: Bilateral central interstitial lung infiltrates or pulmonary edema or bronchitis is again evident and this is stable. No new lung consolidation is evident. No pleural effusion or pneumothorax is seen. The heart size is prominent some of which is due to AP magnification but is otherwise stable. The pulmonary vasculature and mediastinum are unremarkable. IMPRESSION: Stable bilateral interstitial lung infiltrates. Electronically signed by: Trey Gay MD (07/15/2018 11:23 AM) [place] [id number]
[2018-07-15] MEDS ORDERED: FUROSEMIDE 40 MG/4 ML VIAL. IVP ONE (14:45)
[2018-07-15 15:00] VITALS: BP 118/66
--- NOTE | 2018-07-15 16:33 | NUR ---
OT nurse recommends pt to continue lymphedema therapy with home health. If [facility] health does not provide lymphedema therapy, may need to choose different home health company. Will advise social work.
[2018-07-15] MEDS: NICOTINE 21MG PATCH. TD SCH (18:30)
[2018-07-15 19:25] VITALS: BP 131/59
[2018-07-15] MEDS: tiZANidine 4 MG TABLET. PO PRN (21:15)
[2018-07-15] MEDS: FAMOTIDINE 20 MG TABLET. PO SCH (21:15)
[2018-07-15] MEDS: MONTELUKAST SODIUM 10 MG TABLET. PO SCH (21:15)
[2018-07-15] MEDS: ATORVASTATIN CALCIUM 10 MG TABLET. PO SCH (21:15)
[2018-07-15] MEDS: ZOLPIDEM 5 MG TABLET. PO PRN (23:03)
[2018-07-15 23:13] VITALS: BP 127/64
[2018-07-16 03:14] VITALS: BP 122/79
[2018-07-16 04:46] LABS: ALBUMIN 3.1 g/dL (3.4-5.0); ALBUMIN/GLOBULIN RATIO 0.6 (1.0-1.7); CALCIUM 8.7 mg/dL (8.5-10.1); CREATININE 1.1 mg/dL (0.7-1.3); GFR 87.2; MAGNESIUM 2.1 mg/dL (1.8-2.4); POTASSIUM 4.6 mmol/L (3.5-5.1); TOTAL BILIRUBIN 0.5 mg/dL (0.2-1.0); TOTAL PROTEIN 8.7 g/dL (6.4-8.2)
[2018-07-16 06:37] VITALS: BP 130/72
[2018-07-16] MEDS: IPRATRPIUM/ALBUTEROL 0.5/2.5MG 3 ML NEBU. NEB SCH ×4 (07:49→20:04)
[2018-07-16] MEDS: BUDESONIDE 0.5 MG/2 ML NEBU. NEB SCH ×2 (07:49→20:04)
[2018-07-16] MEDS: CEFDINIR 300 MG CAPSULE PO SCH ×2 (08:30→21:14)
[2018-07-16] MEDS: ASPIRIN ENTERIC COATED 81 MG TABLET.DR. PO SCH (08:31)
[2018-07-16] MEDS: LISINOPRIL 20 MG TABLET PO SCH (08:31)
[2018-07-16] MEDS: CETIRIZINE HCL 10 MG TABLET. PO SCH (08:31)
[2018-07-16] MEDS: PANTOPRAZOLE 40 MG TABLET.DR. PO SCH (08:31)
[2018-07-16] MEDS: metOLazone 2.5 MG TABLET PO SCH (08:31)
[2018-07-16] MEDS: GABAPENTIN 300 MG CAPSULE. PO SCH ×3 (08:32→21:14)
[2018-07-16] MEDS: FLUCONAZOLE 100 MG TABLET. PO SCH (08:32)
[2018-07-16] MEDS: LACTOBACILLUS RHAMNOSUS GG 1 CAPSULE. PO SCH ×2 (08:32→21:14)
[2018-07-16] MEDS: CLOPIDOGREL BISULFATE 75 MG TABLET PO SCH (08:32)
[2018-07-16] MEDS: CARVEDILOL 6.25 MG TABLET. PO SCH ×2 (08:32→16:58)
[2018-07-16] MEDS: buPROPion XL 150 MG TAB.ER.24H. PO SCH (08:32)
[2018-07-16] MEDS: INSULIN GLARGINE 300 UNITS/3 ML INSULN.PEN. SQ SCH ×2 (08:37→21:21)
--- NOTE | 2018-07-16 08:37 | PDOC ---
Infectious Disease Note Subjective Subjective feeling better though c/o cough ROS ROS no n/v/d/sob Vital Sign Vital Signs Vital Signs Date Time Temp Pulse Resp B/P (MAP) Pulse Ox O2 Delivery O2 Flow Rate FiO2 07/16/18 07:50 96 Room Air 07/16/18 06:37 97.5 106 24 130/72 (91) 97.5 07/15/18 23:03 4.0 Physical Exam PHYSICAL EXAM GENERAL: Sitting in hte chair, alert, relaxed appearance HEENT: Pupils equal and reactive. Oral cavity, pharynx is clear. NECK: Supple. LUNGS: Clear to auscultation. HEART: S1, S2. ABDOMEN: Morbidly obese, soft, no guarding, no rebound. He has got some pitting thickness of his lower extremity abdominal area EXTREMITIES: No clubbing, cyanosis. Chronic swelling of the bilateral lower extremities, left greater than right and also had some fullness and thickening of groin tissue of his left thigh. SKIN: Otherwise warm to touch without signs of rash. NEUROLOGIC: Nonfocal and appropriate. PIV Labs Lab Laboratory Tests Test 07/15/18 10:59 07/15/18 16:47 07/15/18 20:56 07/16/18 02:55 Glucose (Fingerstick) 210 mg/dL (70-99) 137 mg/dL (70-99) 252 mg/dL (70-99) Sodium Level 138 mmol/L (136-145) Potassium Level 4.6 mmol/L (3.5-5.1) Chloride Level 101 mmol/L (98-107) Carbon Dioxide Level 28 mmol/L (21-32) Anion Gap 9 (6-14) Blood Urea Nitrogen 31 mg/dL (8-26) Creatinine 1.1 mg/dL (0.7-1.3) Estimated GFR (Cockcroft-Gault) 87.2 BUN/Creatinine Ratio 28 (6-20) Glucose Level 265 mg/dL (70-99) Calcium Level 8.7 mg/dL (8.5-10.1) Magnesium Level 2.1 mg/dL (1.8-2.4) Total Bilirubin 0.5 mg/dL (0.2-1.0) Aspartate Amino Transf (AST/SGOT) 33 U/L (15-37) Alanine Aminotransferase (ALT/SGPT) 29 U/L (16-63) Alkaline Phosphatase 200 U/L (46-116) Total Protein 8.7 g/dL (6.4-8.2) Albumin 3.1 g/dL (3.4-5.0) Albumin/Globulin Ratio 0.6 (1.0-1.7) Test 07/16/18 07:18 Glucose (Fingerstick) 222 mg/dL (70-99) Micro Microbiology 07/07/18 Blood Culture - Final, Complete NO GROWTH AFTER 5 DAYS Objective Assessment Left upper thigh cellulitis/yeast vs fluid retention - normal Procalcitonin NURY - stable Fluid overload Augmentin allergy - rash Morbid Obesity DM Plan Plan of Care omnicef and Fluconazole for 5 days off Zyvox and Flagyl Probiotics Diuresis BC NGTD CUCO TRENT MD Jul 16, 2018 08:36
[2018-07-16] MEDS: INSULIN LISPRO 300 UNITS/3 ML INSULN.PEN. SQ SCH ×3 (08:38→17:43)
[2018-07-16] MEDS: DICLOFENAC SODIUM 1% TOPICAL GEL 100GM TUBE. TP SCH ×2 (08:41→21:00)
[2018-07-16] MEDS: HYDROcodone/APAP 10/325 1 TAB TABLET PO PRN ×2 (08:42→19:14)
[2018-07-16] MEDS ORDERED: FUROSEMIDE 40 MG/4 ML VIAL. IVP SCH (09:00)
--- NOTE | 2018-07-16 10:07 | PDOC ---
PROGRESS NOTES Subjective Subjective He is resting comfortably in bed this AM. Objective Objective Vital Signs Date Time Temp Pulse Resp B/P (MAP) Pulse Ox O2 Delivery O2 Flow Rate FiO2 07/16/18 08:42 16 Room Air 07/16/18 08:32 106 130/72 07/16/18 07:50 96 07/16/18 06:37 97.5 97.5 07/15/18 23:03 4.0 Intake and Output 07/16/18 07:00 Intake Total 1943.35 ml Output Total 2400 ml Balance -456.65 ml Intake Oral 1900 ml IV Total 43.35 ml Output Urine Total 2400 ml Physical Exam Physical Exam He continues walking with roller walker and having pain in his knees and he has to take frequent rest breaks while walking with roller walker. Assessment Assessment Problems Medical Problems: (1) Bilateral lower leg cellulitis Status: Acute Plan Plan of Care To get him up as tolerated. Comment Review of Relevant I have reviewed the following items mukund (where applicable) has been applied. Labs Laboratory Tests Test 07/14/18 10:27 07/14/18 17:28 07/14/18 20:22 07/15/18 03:45 Glucose (Fingerstick) 240 mg/dL (70-99) 177 mg/dL (70-99) 114 mg/dL (70-99) White Blood Count 7.2 x10^3/uL (4.0-11.0) Red Blood Count 4.40 x10^6/uL (4.30-5.70) Hemoglobin 10.5 g/dL (13.0-17.5) Hematocrit 34.7 % (39.0-53.0) Mean Corpuscular Volume 79 fL (79-100) Mean Corpuscular Hemoglobin 24 pg (25-35) Mean Corpuscular Hemoglobin Concent 30 g/dL (31-37) Red Cell Distribution Width 20.5 % (11.5-14.5) Platelet Count 251 x10^3/uL (140-400) Neutrophils (%) (Auto) 60 % (31-73) Lymphocytes (%) (Auto) 15 % (24-48) Monocytes (%) (Auto) 16 % (0-9) Eosinophils (%) (Auto) 7 % (0-3) Basophils (%) (Auto) 1 % (0-3) Neutrophils # (Auto) 4.4 x10^3uL (1.8-7.7) Lymphocytes # (Auto) 1.1 x10^3/uL (1.0-4.8) Monocytes # (Auto) 1.2 x10^3/uL (0.0-1.1) Eosinophils # (Auto) 0.5 x10^3/uL (0.0-0.7) Basophils # (Auto) 0.1 x10^3/uL (0.0-0.2) Sodium Level 138 mmol/L (136-145) Potassium Level 4.7 mmol/L (3.5-5.1) Chloride Level 101 mmol/L (98-107) Carbon Dioxide Level 31 mmol/L (21-32) Anion Gap 6 (6-14) Blood Urea Nitrogen 29 mg/dL (8-26) Creatinine 1.4 mg/dL (0.7-1.3) Estimated GFR (Cockcroft-Gault) 66.0 Glucose Level 337 mg/dL (70-99) Calcium Level 8.3 mg/dL (8.5-10.1) Magnesium Level 2.2 mg/dL (1.8-2.4) Test 07/15/18 07:17 07/15/18 10:59 07/15/18 16:47 07/15/18 20:56 Glucose (Fingerstick) 296 mg/dL (70-99) 210 mg/dL (70-99) 137 mg/dL (70-99) 252 mg/dL (70-99) Test 07/16/18 02:55 07/16/18 07:18 Sodium Level 138 mmol/L (136-145) Potassium Level 4.6 mmol/L (3.5-5.1) Chloride Level 101 mmol/L (98-107) Carbon Dioxide Level 28 mmol/L (21-32) Anion Gap 9 (6-14) Blood Urea Nitrogen 31 mg/dL (8-26) Creatinine 1.1 mg/dL (0.7-1.3) Estimated GFR (Cockcroft-Gault) 87.2 BUN/Creatinine Ratio 28 (6-20) Glucose Level 265 mg/dL (70-99) Calcium Level 8.7 mg/dL (8.5-10.1) Magnesium Level 2.1 mg/dL (1.8-2.4) Total Bilirubin 0.5 mg/dL (0.2-1.0) Aspartate Amino Transf (AST/SGOT) 33 U/L (15-37) Alanine Aminotransferase (ALT/SGPT) 29 U/L (16-63) Alkaline Phosphatase 200 U/L (46-116) Total Protein 8.7 g/dL (6.4-8.2) Albumin 3.1 g/dL (3.4-5.0) Albumin/Globulin Ratio 0.6 (1.0-1.7) Glucose (Fingerstick) 222 mg/dL (70-99) Laboratory Tests Test 07/15/18 10:59 07/15/18 16:47 07/15/18 20:56 07/16/18 02:55 Glucose (Fingerstick) 210 mg/dL (70-99) 137 mg/dL (70-99) 252 mg/dL (70-99) Sodium Level 138 mmol/L (136-145) Potassium Level 4.6 mmol/L (3.5-5.1) Chloride Level 101 mmol/L (98-107) Carbon Dioxide Level 28 mmol/L (21-32) Anion Gap 9 (6-14) Blood Urea Nitrogen 31 mg/dL (8-26) Creatinine 1.1 mg/dL (0.7-1.3) Estimated GFR (Cockcroft-Gault) 87.2 BUN/Creatinine Ratio 28 (6-20) Glucose Level 265 mg/dL (70-99) Calcium Level 8.7 mg/dL (8.5-10.1) Magnesium Level 2.1 mg/dL (1.8-2.4) Total Bilirubin 0.5 mg/dL (0.2-1.0) Aspartate Amino Transf (AST/SGOT) 33 U/L (15-37) Alanine Aminotransferase (ALT/SGPT) 29 U/L (16-63) Alkaline Phosphatase 200 U/L (46-116) Total Protein 8.7 g/dL (6.4-8.2) Albumin 3.1 g/dL (3.4-5.0) Albumin/Globulin Ratio 0.6 (1.0-1.7) Test 07/16/18 07:18 Glucose (Fingerstick) 222 mg/dL (70-99) Microbiology 07/07/18 Blood Culture - Final, Complete NO GROWTH AFTER 5 DAYS Medications Current Medications Ondansetron HCl (Zofran) 4 mg 1X ONCE IV Last administered on 07/07/18 18:36; Start 07/07/18 at 18:15; Stop 07/07/18 at 18:16; Status DC Morphine Sulfate (Morphine Sulfate) 4 mg 1X ONCE IV Last administered on at 18:38; Start 07/07/18 at 18:15; Stop 07/07/18 at 18:16; Status DC Vancomycin HCl (Vanco Per Pharmacy) 1 each PRN DAILY PRN MC SEE COMMENTS Last administered on 07/07/18at 21:02; Start 07/07/18 at 18:45; Stop 07/08/18 at 11:22; Status DC Vancomycin HCl 2 gm/Sodium Chloride 500 ml @ 250 mls/hr 1X ONCE IV Last administered on 07/07/18at 18:54; Start 07/07/18 at 19:00; Stop 07/07/18 at 20:59; Status DC Morphine Sulfate (Morphine Sulfate) 4 mg PRN Q2HR PRN IV PAIN Last administered on 07/08/18 19:08; Start 07/07/18 at 20:15; Stop 07/08/18 at 20:14; Status DC Acetaminophen (Tylenol) 650 mg PRN Q4HRS PRN PO FEVER; Start 07/07/18 at 20:15; Stop 07/08/18 at 20:14; Status DC Vancomycin HCl 1.75 gm/Sodium Chloride 500 ml @ 250 mls/hr Q8H IV Last administered on 07/08/18 03:22; Start 07/08/18 at 03:00; Stop 07/08/18 at 11:22; Status DC Vancomycin HCl (Vancomycin Trough Level) 1 each 1X ONCE MC ; Start 07/08/18 at 18:30; Stop 07/08/18 at 18:30; Status DC Albuterol Sulfate (Ventolin Neb Soln) 2.5 mg PRN Q4HRS PRN NEB SHORTNESS OF BREATH Last administered on 07/08/18 08:01; Start 07/07/18 at 23:15 Bumetanide (Bumex) 1 mg DAILY PO Last administered on 07/08/18at 09:06; Start 07/08/18 at 09:00; Stop 07/08/18 at 13:02; Status DC Carvedilol (Coreg) 6.25 mg BIDWMEALS PO Last administered on 07/16/18 08:32; Start 07/08/18 at 08:00 Carvedilol (Coreg) 6.25 mg BIDWMEALS PO ; Start 07/08/18 at 08:00; Status UNV Cetirizine HCl (ZyrTEC) 10 mg DAILY PO Last administered on 07/16/18 08:31; Start 07/08/18 at 09:00 Clopidogrel Bisulfate (Plavix) 75 mg DAILY PO Last administered on 07/16/18 08 :32; Start 07/08/18 at 09:00 Lisinopril (Prinivil) 20 mg DAILY PO Last administered on 07/16/18 08:31; Start 07/08/18 at 09:00 Trimethoprim/ Sulfamethoxazole (Bactrim Ds) 1 tab BID PO ; Start 07/08/18 at 09: 00; Status UNV Pantoprazole Sodium (Protonix) 40 mg DAILYAC PO Last administered on 07/16/18 08:31; Start 07/08/18 at 07:30 Non-Formulary Medication (Doxycycline Monohydrate ) 1 cap BID PO ; Start at 09:00; Status UNV Insulin Glargine (Lantus) 80 units DAILYAC SQ Last administered on 07/08/18 09: 42; Start 07/08/18 at 07:30; Stop 07/08/18 at 10:21; Status DC Non-Formulary Medication (Linaclotide (Linzess)) 145 mcg DAILY07 PO Last administered on 07/09/18 07:00; Start 07/08/18 at 07:00; Stop 07/10/18 at 16:57; Status DC Metformin HCl (Glucophage) 1,000 mg BIDWMEALS PO Last administered on 07/11/18 08:59; Start 07/08/18 at 08:00; Stop 07/11/18 at 19:12; Status DC Montelukast Sodium (Singulair) 10 mg QHS PO Last administered on 07/15/18 21: 15; Start 07/08/18 at 21:00 Atorvastatin Calcium (Lipitor) 5 mg QHS PO Last administered on 07/15/18 21:15 ; Start 07/08/18 at 21:00 Insulin Glargine (Lantus) 80 units 1400 SQ ; Start 07/08/18 at 14:00; Status Cancel Aspirin (Ecotrin) 81 mg DAILYWBKFT PO Last administered on 07/16/18 08:31; Start 07/08/18 at 11:00 Carvedilol (Coreg) 6.25 mg BIDWMEALS PO ; Start 07/08/18 at 11:00; Status Cancel Famotidine (Pepcid) 20 mg HS PO Last administered on 07/15/18 21:15; Start 07/08/18 at 21:00 Furosemide (Lasix) 80 mg DAILY PO Last administered on 07/08/18at 12:47; Start at 11:00; Stop 07/08/18 at 13:02; Status DC Gabapentin (Neurontin) 300 mg HS PO Last administered on 07/11/18at 20:32; Start 07/08/18 at 21:00; Stop 07/12/18 at 10:20; Status DC Insulin Glargine (Lantus) 100 units BID SQ ; Start 07/08/18 at 21:00; Status Cancel Insulin Human Lispro (HumaLOG) 70 units TIDWMEALS SQ Last administered on at 08:38; Start 07/08/18 at 12:00 Albuterol/ Ipratropium (Duoneb) 3 ml RTQID NEB Last administered on 07/16/18 07:49; Start 07/08/18 at 12:00 Bupropion HCl (Wellbutrin Xl) 300 mg DAILY PO Last administered on 07/16/18at 08 :32; Start 07/08/18 at 11:00 Non-Formulary Medication (Dexlansoprazole (Dexilant)) 1 cap DAILY PO ; Start 07/09/18 at 09:00; Stop 07/09/18 at 09:00; Status DC Non-Formulary Medication (Glycopyrrolate/ Formoterol Fum (Bevespi Aerosphere Inhaler)) 10.7 gm DAILY IH ; Start 07/09/18 at 09:00; Stop 07/10/18 at 10:43; Status DC Non-Formulary Medication (Linaclotide (Linzess)) 145 mcg DAILY PO ; Start at 09:00; Status UNV Non-Formulary Medication (Metformin Hcl (Glucophage)) 1,000 mg BIDWMEALS PO ; Start 07/08/18 at 17:00; Status UNV Non-Formulary Medication (Montelukast Sodium (Singulair Tablet)) 10 mg HS PO ; Start 07/08/18 at 21:00; Status UNV Non-Formulary Medication (Pravastatin Sodium ) 1 tab QHS PO ; Start 07/08/18 at 21:00; Status UNV Insulin Glargine (Lantus) 80 units BID SQ Last administered on 07/16/18 08:37 ; Start 07/08/18 at 21:00 Ondansetron HCl (Zofran) 4 mg PRN Q6HRS PRN IV NAUSEA/VOMITING Last administered on 07/08/18 19:26; Start 07/08/18 at 11:15 Nicotine (Nicoderm Cq 21mg) 1 patch DAILY TD Last administered on 07/15/18 18: 30; Start 07/08/18 at 11:30 Albuterol Sulfate (Ventolin Neb Soln) 2.5 mg RTQID NEB ; Start 07/08/18 at 12:00 ; Stop 07/08/18 at 12:01; Status DC Linezolid (Zyvox) 600 mg BID PO Last administered on 07/11/18 09:20; Start 07/08 at 12:00; Stop 07/11/18 at 11:07; Status DC Metronidazole (Flagyl) 500 mg Q12HR PO Last administered on 07/11/18 08:59; Start 07/08/18 at 12:00; Stop 07/11/18 at 11:07; Status DC Fluconazole (Diflucan) 100 mg DAILY PO Last administered on 07/13/18 08:18; Start 07/08/18 at 12:00; Stop 07/13/18 at 09:28; Status DC Cefepime HCl (Maxipime) 2 gm Q12HR IVP Last administered on 07/13/18 08:13; Start 07/08/18 at 12:00; Stop 07/13/18 at 09:28; Status DC Diclofenac Sodium (Voltaren) 1 chung BID TP Last administered on 07/16/18 08:41 ; Start 07/08/18 at 21:00 Metolazone (Zaroxolyn) 5 mg DAILY PO Last administered on 07/16/18 08:31; Start 07/08/18 at 14:00 Furosemide (Lasix) 40 mg 1X ONCE IVP Last administered on 07/08/18at 17:56; Start 07/08/18 at 13:00; Stop 07/08/18 at 13:19; Status DC Furosemide (Lasix) 40 mg Q6HRS IVP Last administered on 07/09/18 06:17; Start 07/08/18 at 18:00; Stop 07/09/18 at 11:26; Status DC Diphenhydramine HCl (Benadryl) 25 mg PRN Q6HRS PRN PO ITCHING Last administered on 07/12/18 03:31; Start 07/08/18 at 20:00 Lactobacillus Rhamnosus (Culturelle) 1 cap BID PO Last administered on at 08:32; Start 07/08/18 at 21:00 Acetaminophen/ Hydrocodone Bitart (Lortab 5/325) 1 tab PRN Q4HRS PRN PO PAIN Last administered on 07/11/18 06:25; Start 07/09/18 at 10:30; Stop 07/11/18 at 09: 12; Status DC Dobutamine HCl/ Dextrose 250 ml @ 32.318 mls/ hr CONT PRN IV PER PROTOCOL Last administered on 07/14/18 11:33; Start 07/09/18 at 11:30; Stop 07/14/18 at 13: 03; Status DC Furosemide 100 mg/ Sodium Chloride 100 ml @ 5 mls/hr CONT PRN IV SEE I/O RECORD Last administered on 07/14/18 20:15; Start 07/09/18 at 11:15; Stop at 14:04; Status DC Methylprednisolone Acetate (DEPO-Medrol 40MG VIAL) 40 mg 1X ONCE IM Last administered on 07/10/18 09:15; Start 07/10/18 at 09:15; Stop 07/10/18 at 09:21; Status DC Bupivacaine HCl (Sensorcaine-Mpf 0.25%) 10 ml 1X ONCE IJ Last administered on 07/10/18 09:15; Start 07/10/18 at 09:15; Stop 07/10/18 at 09:21; Status DC Enoxaparin Sodium (Lovenox 80mg Syringe) 80 mg Q12HR SQ ; Start 07/10/18 at 10:15 ; Stop 07/10/18 at 11:14; Status DC Budesonide (Pulmicort) 0.5 mg RTBID NEB Last administered on 07/16/18 07:49; Start 07/10/18 at 20:00 Budesonide (Pulmicort) 0.5 mg 1X ONCE NEB Last administered on 07/10/18 11:25 ; Start 07/10/18 at 10:15; Stop 07/10/18 at 10:31; Status DC Enoxaparin Sodium (Lovenox 60mg Syringe) 60 mg Q12HR SQ Last administered on 08:40; Start 07/10/18 at 12:00 Lubiprostone (Amitiza) 8 mcg BIDWMEALS PO Last administered on 07/10/18 17:36; Start 07/10/18 at 14:00; Stop 07/10/18 at 20:00; Status DC Non-Formulary Medication (Linaclotide (Linzess)) 145 mcg DAILY07 PO Last administered on 07/16/18 08:33; Start 07/11/18 at 07:00 Zolpidem Tartrate (Ambien) 5 mg PRN QHS PRN PO INSOMNIA Last administered on 23:03; Start 07/10/18 at 18:15 Acetaminophen/ Hydrocodone Bitart (Lortab 10/325) 1 tab PRN Q6HRS PRN PO PAIN Last administered on 07/16/18 08:42; Start 07/11/18 at 09:15 Gabapentin (Neurontin) 300 mg TID PO Last administered on 07/16/18 08:32; Start 07/12/18 at 10:30 Tizanidine HCl (Zanaflex) 4 mg PRN Q8HRS PRN PO MUSCLE SPASMS Last administered on 07/15/18 21:15; Start 07/12/18 at 10:30 Cefdinir (Omnicef) 300 mg BID PO Last administered on 4/11/19at 08:30; Start at 21:00 Fluconazole (Diflucan) 200 mg DAILY PO Last administered on 07/16/18at 08:32; Start 07/14/18 at 09:00 Magnesium Sulfate/ Dextrose 100 ml @ 25 mls/hr 1X ONCE IV Last administered on 07/14/18at 09:50; Start 07/14/18 at 10:00; Stop 07/14/18 at 13:59; Status DC Furosemide (Lasix) 40 mg BID92 IVP ; Start 07/16/18 at 09:00 Furosemide (Lasix) 40 mg 1X ONCE IVP Last administered on 07/15/18at 14:45; Start 07/15/18 at 14:45; Stop 07/15/18 at 14:46; Status DC Active Scripts Active Gabapentin (Gabapentin) 300 Mg Capsule 300 Mg PO HS 30 Days Cefdinir 300 Mg Capsule 300 Mg PO BID 7 Days Lantus Solostar (Insulin Glargine,Hum.rec.anlog) 100 Unit/1 Ml Insuln.pen 100 Unit SQ BID Humalog (Insulin Lispro) 100 Unit/1 Ml Vial 70 Unit SQ TIDAC 30 Days Wellbutrin Xl (Bupropion Hcl) 300 Mg Tab.er.24h 1 Tab PO DAILY Furosemide 80 Mg Tablet 80 Mg PO DAILY 30 Days Duoneb 0.5-3(2.5) Mg/3 Ml (Albuterol/Ipratropium) 3 Ml Ampul.neb 3 Ml NEB RTQID 30 Days Glucophage (Metformin Hcl) 1,000 Mg Tablet 1,000 Mg PO BIDWMEALS Lisinopril 20 Mg Tablet 20 Mg PO DAILY Aspirin Ec (Aspirin) 81 Mg Tablet.dr 81 Mg PO DAILYWBKFT Reported Bactrim Ds Tablet (Sulfamethoxazole/Trimethoprim) 1 Each Tablet 1 Tab PO BID Lisinopril 20 Mg Tablet 1 Tab PO DAILY Clopidogrel (Clopidogrel Bisulfate) 75 Mg Tablet 1 Tab PO DAILY Toujeo Solostar (Insulin Glargine,Hum.rec.anlog) 300 Unit/1 Ml Insuln.pen 300 Unit SQ BID Metformin Hcl 1,000 Mg Tablet 1,000 Mg PO BIDWMEALS Singulair Tablet (Montelukast Sodium) 10 Mg Tablet 1 Tab PO DAILY Coreg (Carvedilol) 6.25 Mg Tablet 6.25 Mg PO BIDWMEALS Pravastatin Sodium 20 Mg Tablet 1 Tab PO DAILY Cetirizine Hcl 10 Mg Tablet 1 Tab PO DAILY Bumetanide 1 Mg Tablet 1 Tab PO DAILY Linzess (Linaclotide) 145 Mcg Capsule 145 Mcg PO DAILY07 Dexilant (Dexlansoprazole) 60 Mg Cap. 1 Cap PO DAILY Doxycycline Monohydrate 100 Mg Capsule 1 Cap PO BID Bevespi Aerosphere Inhaler (Glycopyrrolate/Formoterol Fum) 10.7 Gm Hfa.aer.ad 10.7 Gm IH DAILY Carvedilol (Carvedilol) 6.25 Mg Tablet 1 Tab PO BID Pravastatin Sodium 20 Mg Tablet 1 Tab PO QHS Singulair Tablet (Montelukast Sodium) 10 Mg Tablet 10 Mg PO HS Famotidine 20 Mg Tablet 20 Mg PO HS Dexilant (Dexlansoprazole) 60 Mg Cap. 1 Cap PO DAILY Linzess (Linaclotide) 145 Mcg Capsule 145 Mcg PO DAILY Vitals/I & O Vital Sign - Last 24 Hours 07/15/18 07/15/18 07/15/18 07/15/18 11:00 12:02 15:00 15:51 Temp 98.0 97.4 98.0 97.4 Pulse 104 101 Resp 20 20 B/P (MAP) 137/79 (98) 118/66 (83) Pulse Ox 93 95 91 O2 Delivery Nasal Cannula Nasal Cannula Nasal Cannula Room Air O2 Flow Rate 4.0 4.0 4.0 07/15/18 07/15/18 07/15/18 07/15/18 17:47 18:19 18:20 19:25 Temp 97.7 97.7 Pulse 105 108 Resp 19 B/P (MAP) 131/60 131/59 (83) Pulse Ox 92 O2 Delivery Room Air Room Air Room Air 07/15/18 07/15/18 07/15/18 07/16/18 20:00 23:03 23:13 00:03 Temp 97.5 97.5 Pulse 106 Resp 16 B/P (MAP) 127/64 (85) Pulse Ox 92 94 O2 Delivery Room Air Room Air Room Air Room Air O2 Flow Rate 4.0 07/16/18 07/16/18 07/16/18 07/16/18 03:14 06:37 07:50 08:31 Temp 97.9 97.5 97.9 97.5 Pulse 97 106 106 Resp 19 24 B/P (MAP) 122/79 (93) 130/72 (91) 130/72 Pulse Ox 95 95 96 O2 Delivery Room Air Room Air Room Air 07/16/18 07/16/18 08:32 08:42 Pulse 106 Resp 16 B/P (MAP) 130/72 O2 Delivery Room Air Intake and Output 07/15/18 07/15/18 07/16/18 15:00 23:00 07:00 Intake Total 743.35 ml 1200 ml 0 ml Output Total 500 ml 400 ml 1500 ml Balance 243.35 ml 800 ml -1500 ml ALVARO RHOADES MD Jul 16, 2018 10:07
[2018-07-16] MEDS: BUMETANIDE 1 MG TABLET. PO SCH ×2 (10:15→15:30)
--- NOTE | 2018-07-16 10:51 | DISCH ---
DISCHARGE INSTRUCTIONS Condition on Discharge Condition on Discharge: Stable Activity After Discharge Activity Instructions for Disc: Resume previous activity Diet after Discharge Diet after Discharge: Cardiac (ADA) Diet Texture: Regular Checks after Discharge Checks after discharge: Check blood press - daily, Check blood sugar, ac/hs, Weigh Yourself Daily Contacting the [facility] after DC Call your doctor for: Concerns you may have Follow-Up Follow up with: Dr. PADDY Jean on Friday, in 5 days. Follow Up With: PADDY Lam MD Jul 16, 2018 10:51
[2018-07-16 11:06] VITALS: BP 106/62
--- NOTE | 2018-07-16 11:27 | PDOC ---
PULMONARY PROGRESS NOTES Subjective sob better,has cough and post nasal drip, no pain, used bipap last night Vitals Vital Signs Date Time Temp Pulse Resp B/P (MAP) Pulse Ox O2 Delivery O2 Flow Rate FiO2 07/16/18 11:06 97.5 101 106/62 (77) 94 Room Air 4.0 97.5 07/16/18 09:42 16 General: Alert, No acute distress HEENT: Other (nc at perrl ) Lungs: Crackles, Other (decrease bases) Cardiovascular: S1, S2 Abdomen: Soft, Non-tender, Other (morbidly obese) Extremities: Other (2+edema) Skin: Warm Labs Laboratory Tests Test 07/14/18 17:28 07/14/18 20:22 07/15/18 03:45 07/15/18 07:17 Glucose (Fingerstick) 177 mg/dL (70-99) 114 mg/dL (70-99) 296 mg/dL (70-99) White Blood Count 7.2 x10^3/uL (4.0-11.0) Red Blood Count 4.40 x10^6/uL (4.30-5.70) Hemoglobin 10.5 g/dL (13.0-17.5) Hematocrit 34.7 % (39.0-53.0) Mean Corpuscular Volume 79 fL (79-100) Mean Corpuscular Hemoglobin 24 pg (25-35) Mean Corpuscular Hemoglobin Concent 30 g/dL (31-37) Red Cell Distribution Width 20.5 % (11.5-14.5) Platelet Count 251 x10^3/uL (140-400) Neutrophils (%) (Auto) 60 % (31-73) Lymphocytes (%) (Auto) 15 % (24-48) Monocytes (%) (Auto) 16 % (0-9) Eosinophils (%) (Auto) 7 % (0-3) Basophils (%) (Auto) 1 % (0-3) Neutrophils # (Auto) 4.4 x10^3uL (1.8-7.7) Lymphocytes # (Auto) 1.1 x10^3/uL (1.0-4.8) Monocytes # (Auto) 1.2 x10^3/uL (0.0-1.1) Eosinophils # (Auto) 0.5 x10^3/uL (0.0-0.7) Basophils # (Auto) 0.1 x10^3/uL (0.0-0.2) Sodium Level 138 mmol/L (136-145) Potassium Level 4.7 mmol/L (3.5-5.1) Chloride Level 101 mmol/L (98-107) Carbon Dioxide Level 31 mmol/L (21-32) Anion Gap 6 (6-14) Blood Urea Nitrogen 29 mg/dL (8-26) Creatinine 1.4 mg/dL (0.7-1.3) Estimated GFR (Cockcroft-Gault) 66.0 Glucose Level 337 mg/dL (70-99) Calcium Level 8.3 mg/dL (8.5-10.1) Magnesium Level 2.2 mg/dL (1.8-2.4) Test 07/15/18 10:59 07/15/18 16:47 07/15/18 20:56 07/16/18 02:55 Glucose (Fingerstick) 210 mg/dL (70-99) 137 mg/dL (70-99) 252 mg/dL (70-99) Sodium Level 138 mmol/L (136-145) Potassium Level 4.6 mmol/L (3.5-5.1) Chloride Level 101 mmol/L (98-107) Carbon Dioxide Level 28 mmol/L (21-32) Anion Gap 9 (6-14) Blood Urea Nitrogen 31 mg/dL (8-26) Creatinine 1.1 mg/dL (0.7-1.3) Estimated GFR (Cockcroft-Gault) 87.2 BUN/Creatinine Ratio 28 (6-20) Glucose Level 265 mg/dL (70-99) Calcium Level 8.7 mg/dL (8.5-10.1) Magnesium Level 2.1 mg/dL (1.8-2.4) Total Bilirubin 0.5 mg/dL (0.2-1.0) Aspartate Amino Transf (AST/SGOT) 33 U/L (15-37) Alanine Aminotransferase (ALT/SGPT) 29 U/L (16-63) Alkaline Phosphatase 200 U/L (46-116) Total Protein 8.7 g/dL (6.4-8.2) Albumin 3.1 g/dL (3.4-5.0) Albumin/Globulin Ratio 0.6 (1.0-1.7) Test 07/16/18 07:18 Glucose (Fingerstick) 222 mg/dL (70-99) Laboratory Tests Test 07/15/18 16:47 07/15/18 20:56 07/16/18 02:55 07/16/18 07:18 Glucose (Fingerstick) 137 mg/dL (70-99) 252 mg/dL (70-99) 222 mg/dL (70-99) Sodium Level 138 mmol/L (136-145) Potassium Level 4.6 mmol/L (3.5-5.1) Chloride Level 101 mmol/L (98-107) Carbon Dioxide Level 28 mmol/L (21-32) Anion Gap 9 (6-14) Blood Urea Nitrogen 31 mg/dL (8-26) Creatinine 1.1 mg/dL (0.7-1.3) Estimated GFR (Cockcroft-Gault) 87.2 BUN/Creatinine Ratio 28 (6-20) Glucose Level 265 mg/dL (70-99) Calcium Level 8.7 mg/dL (8.5-10.1) Magnesium Level 2.1 mg/dL (1.8-2.4) Total Bilirubin 0.5 mg/dL (0.2-1.0) Aspartate Amino Transf (AST/SGOT) 33 U/L (15-37) Alanine Aminotransferase (ALT/SGPT) 29 U/L (16-63) Alkaline Phosphatase 200 U/L (46-116) Total Protein 8.7 g/dL (6.4-8.2) Albumin 3.1 g/dL (3.4-5.0) Albumin/Globulin Ratio 0.6 (1.0-1.7) Medications Active Scripts Medications Dose Route/Sig Max Daily Dose Days Date Category Bactrim Ds Tablet (Sulfamethoxazole/Trimethoprim) 1 Each Tablet 1 Tab PO BID 07/07/18 Reported Lisinopril 20 Mg Tablet 1 Tab PO DAILY 07/07/18 Reported Clopidogrel (Clopidogrel Bisulfate) 75 Mg Tablet 1 Tab PO DAILY 07/07/18 Reported Toenriqueta Solostar (Insulin Glargine,Hum.rec.anlog) 300 Unit/1 Ml Insuln.pen 300 Unit SQ BID 07/07/18 Reported Metformin Hcl 1,000 Mg Tablet 1,000 Mg PO BIDWMEALS 07/07/18 Reported Singulair Tablet (Montelukast Sodium) 10 Mg Tablet 1 Tab PO DAILY 07/07/18 Reported Coreg (Carvedilol) 6.25 Mg Tablet 6.25 Mg PO BIDWMEALS 07/07/18 Reported Pravastatin Sodium 20 Mg Tablet 1 Tab PO DAILY 07/07/18 Reported Cetirizine Hcl 10 Mg Tablet 1 Tab PO DAILY 07/07/18 Reported Bumetanide 1 Mg Tablet 1 Tab PO DAILY 07/07/18 Reported Linzess (Linaclotide) 145 Mcg Capsule 145 Mcg PO DAILY07 07/07/18 Reported Dexilant (Dexlansoprazole) 60 Mg Cap. 1 Cap PO DAILY 07/07/18 Reported Doxycycline Monohydrate 100 Mg Capsule 1 Cap PO BID 07/07/18 Reported Gabapentin (Gabapentin) 300 Mg Capsule 300 Mg PO HS 30 06/04/18 Rx Cefdinir 300 Mg Capsule 300 Mg PO BID 7 06/04/18 Rx Lantus Solostar (Insulin Glargine,Hum.rec.anlog) 100 Unit/1 Ml Insuln.pen 100 Unit SQ BID 06/04/18 Rx Humalog (Insulin Lispro) 100 Unit/1 Ml Vial 70 Unit SQ TIDAC 30 06/04/18 Rx Bevespi Aerosphere Inhaler (Glycopyrrolate/Formoterol Fum) 10.7 Gm Hfa.aer.ad 10.7 Gm IH DAILY 05/31/18 Reported Wellbutrin Xl (Bupropion Hcl) 300 Mg Tab.er.24h 1 Tab PO DAILY 01/19/18 Rx Furosemide 80 Mg Tablet 80 Mg PO DAILY 30 01/19/18 Rx Duoneb 0.5-3(2.5) Mg/3 Ml (Albuterol/Ipratropium) 3 Ml Ampul.neb 3 Ml NEB RTQID 30 01/19/18 Rx Carvedilol (Carvedilol) 6.25 Mg Tablet 1 Tab PO BID 01/15/18 Reported Pravastatin Sodium 20 Mg Tablet 1 Tab PO QHS 01/15/18 Reported Singulair Tablet (Montelukast Sodium) 10 Mg Tablet 10 Mg PO HS 01/15/18 Reported Famotidine 20 Mg Tablet 20 Mg PO HS 01/15/18 Reported Dexilant (Dexlansoprazole) 60 Mg Cap.mp 1 Cap PO DAILY 01/15/18 Reported Linzess (Linaclotide) 145 Mcg Capsule 145 Mcg PO DAILY 01/15/18 Reported Glucophage (Metformin Hcl) 1,000 Mg Tablet 1,000 Mg PO BIDWMEALS 04/04/17 Rx Lisinopril 20 Mg Tablet 20 Mg PO DAILY 04/04/17 Rx Aspirin Ec (Aspirin) 81 Mg Tablet. 81 Mg PO DAILYWBKFT 04/04/17 Rx Impression . 1. Acute hypoxic respiratory failure secondary to multifactorial etiologies includes combination of underlying chronic obstructive pulmonary disease with exacerbation, acute on chronic systolic heart failure with an ejection fraction now of of 15-20% and 75-pound weight gain in the last 6 months. 2. Abnormal previous CT chest and chest x-ray with bilateral interstitial infiltrates. This is a patient with severe cardiomyopathy and a two-vessel percutaneous coronary intervention done last year. I suspect ongoing systolic heart failure and less likely ILD. 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 Obstructive sleep apnea, Not able to pick up operator CPAP yet. Poor compliance 4. Lower extremity cellulitis and lymphedema. 5. Morbid obesity. 6. Severe cardiomyopathy with previous echo with an ejection fraction of 15-20% and status post percutaneous coronary intervention of right coronary artery. 7. H/O Severe RICHY 8. CKD Plan . 1. Discussed the importance of losing weight. gained 75 pounds in the last 6 months. 2. Continue present oxygen. 02 titration 3. bumex iv, monitor renal function/ off Dobutamine drip per cardiology 4. empiric CPAP qhs in the hospital, the importance of richy tx discussed, advised to use cpap during sleep. 5. follow cardiology rec 6. Set up CPAP as an outpatient. 7. Smoking cessation counseling provided. 8. CT chest reviewed. Not sig changed from previous one/ suspect ongoing mild CHF 9. add flonase, cont singulair 10. increase activity discussed w KASSANDRA Gann MD Jul 16, 2018 11:27
--- NOTE | 2018-07-16 11:47 | PDOC ---
IM PROGRESS NOTES- Subjective Subjective Patient was not feeling well. He could not sleep last night because of dyspnea he is mucus is brownish and has been coughing more. He has increased swelling of the legs. When I went to the floor his blood pressure is 80/40 size IV Lasix was held. He is not feeling well. Objective Vitals Vital Signs Date Time Temp Pulse Resp B/P (MAP) Pulse Ox O2 Delivery O2 Flow Rate FiO2 07/16/18 11:06 97.5 101 106/62 (77) 94 Room Air 4.0 97.5 07/16/18 09:42 16 Input & Output Intake and Output 07/16/18 06:59 Intake Total 1943.35 ml Output Total 2400 ml Balance -456.65 ml Intake Oral 1900 ml IV Total 43.35 ml Output Urine Total 2400 ml Physical Exam Physical Exam General appearance - alert,ill appearing, and in mild distress and oriented to person, place, and time Mental Status - alert, oriented to person, place, and time, affect appropriate to mood Head - normal Chest -decreased breath sounds at bases Heart - S1 and S2 normal Abdomen - soft, nontender, nondistended, no masses or organomegaly. Patient has a large pannus with edema of the abdomen and thighs Neurological - alert and oriented Musculoskeletal - no muscular tenderness noted Extremities - edema increased Skin - warm and dry no redness of both thighs Labs Laboratory Tests Test 07/14/18 17:28 07/14/18 20:22 07/15/18 03:45 07/15/18 07:17 Glucose (Fingerstick) 177 mg/dL (70-99) 114 mg/dL (70-99) 296 mg/dL (70-99) White Blood Count 7.2 x10^3/uL (4.0-11.0) Red Blood Count 4.40 x10^6/uL (4.30-5.70) Hemoglobin 10.5 g/dL (13.0-17.5) Hematocrit 34.7 % (39.0-53.0) Mean Corpuscular Volume 79 fL (79-100) Mean Corpuscular Hemoglobin 24 pg (25-35) Mean Corpuscular Hemoglobin Concent 30 g/dL (31-37) Red Cell Distribution Width 20.5 % (11.5-14.5) Platelet Count 251 x10^3/uL (140-400) Neutrophils (%) (Auto) 60 % (31-73) Lymphocytes (%) (Auto) 15 % (24-48) Monocytes (%) (Auto) 16 % (0-9) Eosinophils (%) (Auto) 7 % (0-3) Basophils (%) (Auto) 1 % (0-3) Neutrophils # (Auto) 4.4 x10^3uL (1.8-7.7) Lymphocytes # (Auto) 1.1 x10^3/uL (1.0-4.8) Monocytes # (Auto) 1.2 x10^3/uL (0.0-1.1) Eosinophils # (Auto) 0.5 x10^3/uL (0.0-0.7) Basophils # (Auto) 0.1 x10^3/uL (0.0-0.2) Sodium Level 138 mmol/L (136-145) Potassium Level 4.7 mmol/L (3.5-5.1) Chloride Level 101 mmol/L (98-107) Carbon Dioxide Level 31 mmol/L (21-32) Anion Gap 6 (6-14) Blood Urea Nitrogen 29 mg/dL (8-26) Creatinine 1.4 mg/dL (0.7-1.3) Estimated GFR (Cockcroft-Gault) 66.0 Glucose Level 337 mg/dL (70-99) Calcium Level 8.3 mg/dL (8.5-10.1) Magnesium Level 2.2 mg/dL (1.8-2.4) Test 07/15/18 10:59 07/15/18 16:47 07/15/18 20:56 07/16/18 02:55 Glucose (Fingerstick) 210 mg/dL (70-99) 137 mg/dL (70-99) 252 mg/dL (70-99) Sodium Level 138 mmol/L (136-145) Potassium Level 4.6 mmol/L (3.5-5.1) Chloride Level 101 mmol/L (98-107) Carbon Dioxide Level 28 mmol/L (21-32) Anion Gap 9 (6-14) Blood Urea Nitrogen 31 mg/dL (8-26) Creatinine 1.1 mg/dL (0.7-1.3) Estimated GFR (Cockcroft-Gault) 87.2 BUN/Creatinine Ratio 28 (6-20) Glucose Level 265 mg/dL (70-99) Calcium Level 8.7 mg/dL (8.5-10.1) Magnesium Level 2.1 mg/dL (1.8-2.4) Total Bilirubin 0.5 mg/dL (0.2-1.0) Aspartate Amino Transf (AST/SGOT) 33 U/L (15-37) Alanine Aminotransferase (ALT/SGPT) 29 U/L (16-63) Alkaline Phosphatase 200 U/L (46-116) Total Protein 8.7 g/dL (6.4-8.2) Albumin 3.1 g/dL (3.4-5.0) Albumin/Globulin Ratio 0.6 (1.0-1.7) Test 07/16/18 07:18 Glucose (Fingerstick) 222 mg/dL (70-99) Laboratory Tests Test 07/15/18 16:47 07/15/18 20:56 07/16/18 02:55 07/16/18 07:18 Glucose (Fingerstick) 137 mg/dL (70-99) 252 mg/dL (70-99) 222 mg/dL (70-99) Sodium Level 138 mmol/L (136-145) Potassium Level 4.6 mmol/L (3.5-5.1) Chloride Level 101 mmol/L (98-107) Carbon Dioxide Level 28 mmol/L (21-32) Anion Gap 9 (6-14) Blood Urea Nitrogen 31 mg/dL (8-26) Creatinine 1.1 mg/dL (0.7-1.3) Estimated GFR (Cockcroft-Gault) 87.2 BUN/Creatinine Ratio 28 (6-20) Glucose Level 265 mg/dL (70-99) Calcium Level 8.7 mg/dL (8.5-10.1) Magnesium Level 2.1 mg/dL (1.8-2.4) Total Bilirubin 0.5 mg/dL (0.2-1.0) Aspartate Amino Transf (AST/SGOT) 33 U/L (15-37) Alanine Aminotransferase (ALT/SGPT) 29 U/L (16-63) Alkaline Phosphatase 200 U/L (46-116) Total Protein 8.7 g/dL (6.4-8.2) Albumin 3.1 g/dL (3.4-5.0) Albumin/Globulin Ratio 0.6 (1.0-1.7) Meds Current Medications Bumetanide (Bumex) 1 mg BID92 PO ; Start 07/16/18 at 10:15 Fluticasone Propionate (Flonase) 2 spray DAILY NS ; Start 07/17/18 at 09:00 Furosemide (Lasix) 40 mg 1X ONCE IVP Last administered on 07/15/18at 14:45; Start 07/15/18 at 14:45; Stop 07/16/18 at 10:12; Status DC Furosemide (Lasix) 40 mg BID92 IVP ; Start 07/16/18 at 09:00 Insulin Human Lispro (HumaLOG) 75 units TIDWMEALS SQ ; Start 07/16/18 at 12:00 Assessment Assessment Problems Medical Problems: (1) Bilateral lower leg cellulitis Status: Acute IMPRESSION: 1. Possible cellulitis of the lower extremities. 2. Chronic edema of both lower extremities and lymphedema. 3. 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 4. Respiratory failure, hypoxic. 5. Morbid obesity. 6. Obstructive sleep apnea, CPAP, noncompliant. 7. Diabetes mellitus type 2, insulin-dependent, noncompliant. 8. Chronic obstructive pulmonary disease. 9. Hyperkalemia. 10. Slow transit constipation. 11. Osteoarthritis of both knees. 12. Physical deconditioning. 13. History of right lower lung nodule. 14. Gastroesophageal reflux disease with esophagitis. 15. Mixed hyperlipidemia. 16. Noncompliance. 17. Anemia of chronic disease. 18. Coronary artery disease with 2-vessel coronary artery disease status post drug-eluting stent of the right coronary artery on 04/03/2017. PLAN: His admission weight was 475 pounds now it is 434 pounds. on iv lasix drip+ dobutamine drip continue Neurontin and tizanidine for muscle spasms. Potassium is 4.6 today magnesium is pending. echo 15%. renal consult. monitor kidney function continue consultation with Dr. Valladares and Dr. Boggs morbid obesity. rehab consult appreciated discussed with Dr. Willis. Hold off on injections in the knees. fluid restriction extensively discussed with the patient and the family. Noncompliance Hypomagnesemia- replace cellulitis of the thighs-improving. Congestive heart failure- dobutamine has been stopped. Continue IV Lasix and metolazone. Creatinine has increased to 1.4. Monitor Health Worker is planning to place AICD after his weight is decreased to 400 pounds. He would also like to refer him to heart failure clinic. Hypotension- Hold Lasix for now and check with the paper goods machine operator. Clinically patient is worse and I will not be able to discharge him today. Plan Plan For more details regarding further plans, please refer to the orders. PADDY LINCOLN MD Jul 16, 2018 11:47
--- NOTE | 2018-07-16 12:02 | PDOC ---
JUANY PETERS PROPAGATION WORKER 07/16/18 1202: CARDIO Progress Notes Date and Time Date of Service 07/16/18 Time of Evaluation 1050 Subjective Subjective: No Chest Pain, No shortness of breath, No Palpitations, Other ( sweeling much improved. Feeling weak today.) Vitals Vitals Vital Signs Date Time Temp Pulse Resp B/P (MAP) Pulse Ox O2 Delivery O2 Flow Rate FiO2 07/16/18 11:06 97.5 101 106/62 (77) 94 Room Air 4.0 97.5 07/16/18 09:42 16 Weight Weight [ ] Input and Output Intake and Output Intake and Output 07/16/18 07:00 Intake Total 1943.35 ml Output Total 2400 ml Balance -456.65 ml Intake Oral 1900 ml IV Total 43.35 ml Output Urine Total 2400 ml Laboratory Labs Laboratory Tests Test 07/15/18 16:47 07/15/18 20:56 07/16/18 02:55 07/16/18 07:18 Glucose (Fingerstick) 137 mg/dL (70-99) 252 mg/dL (70-99) 222 mg/dL (70-99) Sodium Level 138 mmol/L (136-145) Potassium Level 4.6 mmol/L (3.5-5.1) Chloride Level 101 mmol/L (98-107) Carbon Dioxide Level 28 mmol/L (21-32) Anion Gap 9 (6-14) Blood Urea Nitrogen 31 mg/dL (8-26) Creatinine 1.1 mg/dL (0.7-1.3) Estimated GFR (Cockcroft-Gault) 87.2 BUN/Creatinine Ratio 28 (6-20) Glucose Level 265 mg/dL (70-99) Calcium Level 8.7 mg/dL (8.5-10.1) Magnesium Level 2.1 mg/dL (1.8-2.4) Total Bilirubin 0.5 mg/dL (0.2-1.0) Aspartate Amino Transf (AST/SGOT) 33 U/L (15-37) Alanine Aminotransferase (ALT/SGPT) 29 U/L (16-63) Alkaline Phosphatase 200 U/L (46-116) Total Protein 8.7 g/dL (6.4-8.2) Albumin 3.1 g/dL (3.4-5.0) Albumin/Globulin Ratio 0.6 (1.0-1.7) Microbiology Micro Microbiology 07/07/18 Blood Culture - Final, Complete NO GROWTH AFTER 5 DAYS Physical Exam HEENT: Neck Supple W Full Motion Chest: Symmetric LUNGS: Other (diminished bases) Heart: S1S2, RRR (SR ), other (distante heart sounds) Abdomen: Other (obese, scrotal sweeling resolved ) Extremities: Other (trace bilateral LE edema ) Neurology: alert, oriented, follow commands Assessment Assessment 1. Acute on chronic combined systolic/diastolic CHF: better compensated. Poor insight into health status/condition; asking how long he will need to limit Na and fluid intake. Drinks Pepsi Zero rather that regular Pepsi now; doesn't know why the fluid has built up since switching pop. 2. Anasarca; much improved 3. ICM: LVEF 15-20%. 4. CAD: stable clinically 5. Morbid obesity, [place], 6. NURY 7. HTN: controlled 8. DM2/HLP 9. COPD with continued tobaccoism 10. Non-compliance 11. Anemia of chronic disease Recommendations Convert Lasix or oral Bumex 1mg BID. Continue metolazone- change to 3 days per week upon discharge Again discussed overall fluid intake restriction of 2000cc, including ALL liquids Daily weight Increase ambulation Outpatient referral to heart failure clinic. Consider AICD, for primary prevention, when weight is below 400lbs. TISH PONCE MD 07/16/18 1453: CARDIO Progress Notes Plan Plan Pt. seen and examined. Agree with above SALESFORCE DEVELOPER note. No acute events. mild hypotension this a.m. Continue present meds. Ok to DC tomorrow if stable on oral meds. cr stable. Thanks. JUANY PETERS APRN Jul 16, 2018 12:02 TISH PONCE MD Jul 16, 2018 14:53
[2018-07-16 15:00] VITALS: BP 121/75
[2018-07-16 19:04] VITALS: BP 94/61
[2018-07-16] MEDS: MONTELUKAST SODIUM 10 MG TABLET. PO SCH (21:14)
[2018-07-16] MEDS: FAMOTIDINE 20 MG TABLET. PO SCH (21:14)
[2018-07-16] MEDS: ATORVASTATIN CALCIUM 10 MG TABLET. PO SCH (21:14)
[2018-07-16 22:42] VITALS: BP 128/71
[2018-07-16] MEDS: NICOTINE 21MG PATCH. TD SCH (23:30)
[2018-07-16] MEDS: ZOLPIDEM 5 MG TABLET. PO PRN (23:31)
[2018-07-16] MEDS: diphenhydrAMINE HCL 25 MG CAPSULE PO PRN (23:31)
[2018-07-17] MEDS: HYDROcodone/APAP 10/325 1 TAB TABLET PO PRN ×2 (02:06→09:36)
[2018-07-17 03:43] VITALS: BP 139/61
[2018-07-17 05:41] LABS: ALBUMIN 3.2 g/dL (3.4-5.0); ALBUMIN/GLOBULIN RATIO 0.6 (1.0-1.7); CALCIUM 8.7 mg/dL (8.5-10.1); GFR 97.3; POTASSIUM 4.7 mmol/L (3.5-5.1); TOTAL BILIRUBIN 0.6 mg/dL (0.2-1.0); TOTAL PROTEIN 8.6 g/dL (6.4-8.2)
[2018-07-17 07:00] VITALS: BP 145/70
[2018-07-17] MEDS: CEFDINIR 300 MG CAPSULE PO SCH (08:12)
--- NOTE | 2018-07-17 08:12 | PDOC ---
PULMONARY PROGRESS NOTES Subjective has sob, cough and post nasal drip, no pain, used cpap last night Vitals Vital Signs Date Time Temp Pulse Resp B/P (MAP) Pulse Ox O2 Delivery O2 Flow Rate FiO2 07/17/18 07:00 98.4 97 20 145/70 (95) 96 Room Air 98.4 07/16/18 22:42 2.0 General: Alert, No acute distress HEENT: Other (nc at perrl ) Lungs: Crackles, Other (decrease bases) Cardiovascular: S1, S2 Abdomen: Soft, Non-tender, Other (morbidly obese) Extremities: Other (2+edema) Skin: Warm Labs Laboratory Tests Test 07/15/18 10:59 07/15/18 16:47 07/15/18 20:56 07/16/18 02:55 Glucose (Fingerstick) 210 mg/dL (70-99) 137 mg/dL (70-99) 252 mg/dL (70-99) Sodium Level 138 mmol/L (136-145) Potassium Level 4.6 mmol/L (3.5-5.1) Chloride Level 101 mmol/L (98-107) Carbon Dioxide Level 28 mmol/L (21-32) Anion Gap 9 (6-14) Blood Urea Nitrogen 31 mg/dL (8-26) Creatinine 1.1 mg/dL (0.7-1.3) Estimated GFR (Cockcroft-Gault) 87.2 BUN/Creatinine Ratio 28 (6-20) Glucose Level 265 mg/dL (70-99) Calcium Level 8.7 mg/dL (8.5-10.1) Magnesium Level 2.1 mg/dL (1.8-2.4) Total Bilirubin 0.5 mg/dL (0.2-1.0) Aspartate Amino Transf (AST/SGOT) 33 U/L (15-37) Alanine Aminotransferase (ALT/SGPT) 29 U/L (16-63) Alkaline Phosphatase 200 U/L (46-116) Total Protein 8.7 g/dL (6.4-8.2) Albumin 3.1 g/dL (3.4-5.0) Albumin/Globulin Ratio 0.6 (1.0-1.7) Test 07/16/18 07:18 07/16/18 12:07 07/16/18 17:02 07/16/18 20:50 Glucose (Fingerstick) 222 mg/dL (70-99) 169 mg/dL (70-99) 175 mg/dL (70-99) 181 mg/dL (70-99) Test 07/17/18 05:00 07/17/18 07:38 Sodium Level 139 mmol/L (136-145) Potassium Level 4.7 mmol/L (3.5-5.1) Chloride Level 102 mmol/L (98-107) Carbon Dioxide Level 27 mmol/L (21-32) Anion Gap 10 (6-14) Blood Urea Nitrogen 28 mg/dL (8-26) Creatinine 1.0 mg/dL (0.7-1.3) Estimated GFR (Cockcroft-Gault) 97.3 BUN/Creatinine Ratio 28 (6-20) Glucose Level 275 mg/dL (70-99) Calcium Level 8.7 mg/dL (8.5-10.1) Total Bilirubin 0.6 mg/dL (0.2-1.0) Aspartate Amino Transf (AST/SGOT) 36 U/L (15-37) Alanine Aminotransferase (ALT/SGPT) 28 U/L (16-63) Alkaline Phosphatase 204 U/L (46-116) Total Protein 8.6 g/dL (6.4-8.2) Albumin 3.2 g/dL (3.4-5.0) Albumin/Globulin Ratio 0.6 (1.0-1.7) Glucose (Fingerstick) 263 mg/dL (70-99) Laboratory Tests Test 07/16/18 12:07 07/16/18 17:02 07/16/18 20:50 07/17/18 05:00 Glucose (Fingerstick) 169 mg/dL (70-99) 175 mg/dL (70-99) 181 mg/dL (70-99) Sodium Level 139 mmol/L (136-145) Potassium Level 4.7 mmol/L (3.5-5.1) Chloride Level 102 mmol/L (98-107) Carbon Dioxide Level 27 mmol/L (21-32) Anion Gap 10 (6-14) Blood Urea Nitrogen 28 mg/dL (8-26) Creatinine 1.0 mg/dL (0.7-1.3) Estimated GFR (Cockcroft-Gault) 97.3 BUN/Creatinine Ratio 28 (6-20) Glucose Level 275 mg/dL (70-99) Calcium Level 8.7 mg/dL (8.5-10.1) Total Bilirubin 0.6 mg/dL (0.2-1.0) Aspartate Amino Transf (AST/SGOT) 36 U/L (15-37) Alanine Aminotransferase (ALT/SGPT) 28 U/L (16-63) Alkaline Phosphatase 204 U/L (46-116) Total Protein 8.6 g/dL (6.4-8.2) Albumin 3.2 g/dL (3.4-5.0) Albumin/Globulin Ratio 0.6 (1.0-1.7) Test 07/17/18 07:38 Glucose (Fingerstick) 263 mg/dL (70-99) Medications Active Scripts Medications Dose Route/Sig Max Daily Dose Days Date Category Bactrim Ds Tablet (Sulfamethoxazole/Trimethoprim) 1 Each Tablet 1 Tab PO BID 07/07/18 Reported Lisinopril 20 Mg Tablet 1 Tab PO DAILY 07/07/18 Reported Clopidogrel (Clopidogrel Bisulfate) 75 Mg Tablet 1 Tab PO DAILY 07/07/18 Reported Devaughn Akbarostellie (Insulin Glargine,Hum.rec.anlog) 300 Unit/1 Ml Insuln.pen 300 Unit SQ BID 07/07/18 Reported Metformin Hcl 1,000 Mg Tablet 1,000 Mg PO BIDWMEALS 07/07/18 Reported Singulair Tablet (Montelukast Sodium) 10 Mg Tablet 1 Tab PO DAILY 07/07/18 Reported Coreg (Carvedilol) 6.25 Mg Tablet 6.25 Mg PO BIDWMEALS 07/07/18 Reported Pravastatin Sodium 20 Mg Tablet 1 Tab PO DAILY 07/07/18 Reported Cetirizine Hcl 10 Mg Tablet 1 Tab PO DAILY 07/07/18 Reported Bumetanide 1 Mg Tablet 1 Tab PO DAILY 07/07/18 Reported Linzess (Linaclotide) 145 Mcg Capsule 145 Mcg PO DAILY07 07/07/18 Reported Dexilant (Dexlansoprazole) 60 Mg Cap. 1 Cap PO DAILY 07/07/18 Reported Doxycycline Monohydrate 100 Mg Capsule 1 Cap PO BID 07/07/18 Reported Gabapentin (Gabapentin) 300 Mg Capsule 300 Mg PO HS 30 06/04/18 Rx Cefdinir 300 Mg Capsule 300 Mg PO BID 7 06/04/18 Rx Lantus Solostar (Insulin Glargine,Hum.rec.anlog) 100 Unit/1 Ml Insuln.pen 100 Unit SQ BID 06/04/18 Rx Humalog (Insulin Lispro) 100 Unit/1 Ml Vial 70 Unit SQ TIDAC 30 06/04/18 Rx Bevespi Aerosphere Inhaler (Glycopyrrolate/Formoterol Fum) 10.7 Gm Hfa.aer.ad 10.7 Gm IH DAILY 05/31/18 Reported Wellbutrin Xl (Bupropion Hcl) 300 Mg Tab.er.24h 1 Tab PO DAILY 01/19/18 Rx Furosemide 80 Mg Tablet 80 Mg PO DAILY 30 01/19/18 Rx Duoneb 0.5-3(2.5) Mg/3 Ml (Albuterol/Ipratropium) 3 Ml Ampul.neb 3 Ml NEB RTQID 30 01/19/18 Rx Carvedilol (Carvedilol) 6.25 Mg Tablet 1 Tab PO BID 01/15/18 Reported Pravastatin Sodium 20 Mg Tablet 1 Tab PO QHS 01/15/18 Reported Singulair Tablet (Montelukast Sodium) 10 Mg Tablet 10 Mg PO HS 01/15/18 Reported Famotidine 20 Mg Tablet 20 Mg PO HS 01/15/18 Reported Dexilant (Dexlansoprazole) 60 Mg Cap.mp 1 Cap PO DAILY 01/15/18 Reported Linzess (Linaclotide) 145 Mcg Capsule 145 Mcg PO DAILY 01/15/18 Reported Glucophage (Metformin Hcl) 1,000 Mg Tablet 1,000 Mg PO BIDWMEALS 04/04/17 Rx Lisinopril 20 Mg Tablet 20 Mg PO DAILY 04/04/17 Rx Aspirin Ec (Aspirin) 81 Mg Tablet. 81 Mg PO DAILYWBKFT 04/04/17 Rx Impression . 1. Acute hypoxic respiratory failure secondary to multifactorial etiologies includes combination of underlying chronic obstructive pulmonary disease with exacerbation, acute on chronic systolic heart failure with an ejection fraction now of of 15-20% and 75-pound weight gain in the last 6 months. 2. Abnormal previous CT chest and chest x-ray with bilateral interstitial infiltrates. This is a patient with severe cardiomyopathy and a two-vessel percutaneous coronary intervention done last year. I suspect ongoing systolic heart failure and less likely ILD. 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 Obstructive sleep apnea, Not able to mixing picker tender CPAP yet. Poor compliance 4. Lower extremity cellulitis and lymphedema. 5. Morbid obesity. 6. Severe cardiomyopathy with previous echo with an ejection fraction of 15-20% and status post percutaneous coronary intervention of right coronary artery. 7. H/O Severe KAT[place]USKA 8. CKD Plan . 1. Discussed the importance of losing weight. gained 75 pounds in the last 6 months. 2. Continue present oxygen. 02 titration 3. bumex, monitor renal function/ off Dobutamine drip per cardiology 4. empiric CPAP qhs in the hospital, the importance of [place] tx discussed, advised to use cpap during sleep. 5. follow cardiology rec 6. Set up CPAP as an outpatient. 7. Smoking cessation counseling provided. cont BD 8. CT chest reviewed. Not sig changed from previous one/ suspect ongoing mild CHF 9. cont flonase, cont singulair 10. increase activity 11. 6 min walk at the time of discharge discussed w KASSANDRA Gann MD Jul 17, 2018 08:12
[2018-07-17] MEDS: CARVEDILOL 6.25 MG TABLET. PO SCH (08:14)
[2018-07-17] MEDS: LACTOBACILLUS RHAMNOSUS GG 1 CAPSULE. PO SCH (08:14)
[2018-07-17] MEDS: BUMETANIDE 1 MG TABLET. PO SCH ×2 (08:14→14:28)
[2018-07-17] MEDS: FLUCONAZOLE 100 MG TABLET. PO SCH (08:15)
[2018-07-17] MEDS: metOLazone 2.5 MG TABLET PO SCH (08:15)
[2018-07-17] MEDS: CLOPIDOGREL BISULFATE 75 MG TABLET PO SCH (08:15)
[2018-07-17] MEDS: PANTOPRAZOLE 40 MG TABLET.DR. PO SCH (08:15)
[2018-07-17] MEDS: IPRATRPIUM/ALBUTEROL 0.5/2.5MG 3 ML NEBU. NEB SCH ×3 (08:15→15:58)
[2018-07-17] MEDS: ASPIRIN ENTERIC COATED 81 MG TABLET.DR. PO SCH (08:15)
[2018-07-17] MEDS: buPROPion XL 150 MG TAB.ER.24H. PO SCH (08:15)
[2018-07-17] MEDS: BUDESONIDE 0.5 MG/2 ML NEBU. NEB SCH (08:15)
[2018-07-17] MEDS: GABAPENTIN 300 MG CAPSULE. PO SCH ×2 (08:16→14:28)
[2018-07-17] MEDS: LISINOPRIL 20 MG TABLET PO SCH (08:16)
[2018-07-17] MEDS: DICLOFENAC SODIUM 1% TOPICAL GEL 100GM TUBE. TP SCH ×2 (08:16→09:00)
[2018-07-17] MEDS: CETIRIZINE HCL 10 MG TABLET. PO SCH (08:16)
[2018-07-17] MEDS ORDERED: FLUTICASONE 50MCG/NASAL SPRAY 16GM BOTTLE. NS SCH (09:00)
[2018-07-17] MEDS: INSULIN LISPRO 300 UNITS/3 ML INSULN.PEN. SQ SCH ×2 (09:46→13:03)
[2018-07-17] MEDS: INSULIN GLARGINE 300 UNITS/3 ML INSULN.PEN. SQ SCH (09:46)
--- NOTE | 2018-07-17 10:29 | PDOC3 ---
IM DISCHARGE SUMMARY Date of Admission Date of Admission Date of Admission: Jul 07, 2018 at 19:05 Date of Discharge Date of Discharge July 17, 2018 Primary Diagnosis Primary Diagnosis 1. Possible cellulitis of the lower extremities. 2. Chronic edema of both lower extremities and lymphedema. 3. 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 4. Respiratory failure, hypoxic. 5. Morbid obesity. 6. Obstructive sleep apnea, CPAP, noncompliant. 7. Diabetes mellitus type 2, insulin-dependent, noncompliant. 8. Chronic obstructive pulmonary disease. 9. Hyperkalemia. 10. Slow transit constipation. 11. Osteoarthritis of both knees. 12. Physical deconditioning. 13. History of right lower lung nodule. 14. Gastroesophageal reflux disease with esophagitis. 15. Mixed hyperlipidemia. 16. Noncompliance. 17. Anemia of chronic disease. 18. Coronary artery disease with 2-vessel coronary artery disease status post drug-eluting stent of the right coronary artery on 04/03/2017. Consults Consults Rayray Torres MD Labs Labs Laboratory Tests Test 07/14/18 10:27 07/14/18 17:28 07/14/18 20:22 07/15/18 03:45 Glucose (Fingerstick) 240 mg/dL (70-99) 177 mg/dL (70-99) 114 mg/dL (70-99) White Blood Count 7.2 x10^3/uL (4.0-11.0) Red Blood Count 4.40 x10^6/uL (4.30-5.70) Hemoglobin 10.5 g/dL (13.0-17.5) Hematocrit 34.7 % (39.0-53.0) Mean Corpuscular Volume 79 fL (79-100) Mean Corpuscular Hemoglobin 24 pg (25-35) Mean Corpuscular Hemoglobin Concent 30 g/dL (31-37) Red Cell Distribution Width 20.5 % (11.5-14.5) Platelet Count 251 x10^3/uL (140-400) Neutrophils (%) (Auto) 60 % (31-73) Lymphocytes (%) (Auto) 15 % (24-48) Monocytes (%) (Auto) 16 % (0-9) Eosinophils (%) (Auto) 7 % (0-3) Basophils (%) (Auto) 1 % (0-3) Neutrophils # (Auto) 4.4 x10^3uL (1.8-7.7) Lymphocytes # (Auto) 1.1 x10^3/uL (1.0-4.8) Monocytes # (Auto) 1.2 x10^3/uL (0.0-1.1) Eosinophils # (Auto) 0.5 x10^3/uL (0.0-0.7) Basophils # (Auto) 0.1 x10^3/uL (0.0-0.2) Sodium Level 138 mmol/L (136-145) Potassium Level 4.7 mmol/L (3.5-5.1) Chloride Level 101 mmol/L (98-107) Carbon Dioxide Level 31 mmol/L (21-32) Anion Gap 6 (6-14) Blood Urea Nitrogen 29 mg/dL (8-26) Creatinine 1.4 mg/dL (0.7-1.3) Estimated GFR (Cockcroft-Gault) 66.0 Glucose Level 337 mg/dL (70-99) Calcium Level 8.3 mg/dL (8.5-10.1) Magnesium Level 2.2 mg/dL (1.8-2.4) Test 07/15/18 07:17 07/15/18 10:59 07/15/18 16:47 07/15/18 20:56 Glucose (Fingerstick) 296 mg/dL (70-99) 210 mg/dL (70-99) 137 mg/dL (70-99) 252 mg/dL (70-99) Test 07/16/18 02:55 07/16/18 07:18 07/16/18 12:07 07/16/18 17:02 Sodium Level 138 mmol/L (136-145) Potassium Level 4.6 mmol/L (3.5-5.1) Chloride Level 101 mmol/L (98-107) Carbon Dioxide Level 28 mmol/L (21-32) Anion Gap 9 (6-14) Blood Urea Nitrogen 31 mg/dL (8-26) Creatinine 1.1 mg/dL (0.7-1.3) Estimated GFR (Cockcroft-Gault) 87.2 BUN/Creatinine Ratio 28 (6-20) Glucose Level 265 mg/dL (70-99) Calcium Level 8.7 mg/dL (8.5-10.1) Magnesium Level 2.1 mg/dL (1.8-2.4) Total Bilirubin 0.5 mg/dL (0.2-1.0) Aspartate Amino Transf (AST/SGOT) 33 U/L (15-37) Alanine Aminotransferase (ALT/SGPT) 29 U/L (16-63) Alkaline Phosphatase 200 U/L (46-116) Total Protein 8.7 g/dL (6.4-8.2) Albumin 3.1 g/dL (3.4-5.0) Albumin/Globulin Ratio 0.6 (1.0-1.7) Glucose (Fingerstick) 222 mg/dL (70-99) 169 mg/dL (70-99) 175 mg/dL (70-99) Test 07/16/18 20:50 07/17/18 05:00 07/17/18 07:38 Glucose (Fingerstick) 181 mg/dL (70-99) 263 mg/dL (70-99) Sodium Level 139 mmol/L (136-145) Potassium Level 4.7 mmol/L (3.5-5.1) Chloride Level 102 mmol/L (98-107) Carbon Dioxide Level 27 mmol/L (21-32) Anion Gap 10 (6-14) Blood Urea Nitrogen 28 mg/dL (8-26) Creatinine 1.0 mg/dL (0.7-1.3) Estimated GFR (Cockcroft-Gault) 97.3 BUN/Creatinine Ratio 28 (6-20) Glucose Level 275 mg/dL (70-99) Calcium Level 8.7 mg/dL (8.5-10.1) Total Bilirubin 0.6 mg/dL (0.2-1.0) Aspartate Amino Transf (AST/SGOT) 36 U/L (15-37) Alanine Aminotransferase (ALT/SGPT) 28 U/L (16-63) Alkaline Phosphatase 204 U/L (46-116) Total Protein 8.6 g/dL (6.4-8.2) Albumin 3.2 g/dL (3.4-5.0) Albumin/Globulin Ratio 0.6 (1.0-1.7) Brief hospital course Brief hospital course This 48-year-old male presented to the Emergency Room with complaints of cellulitis of the legs. The patient recently was treated for cellulitis of the legs. The patient has been gaining weight and has been more short of breath. He complains of dyspnea on exertion, has not been able to walk, complains of joint pains and weakness. He also has chronic lymphedema and has been to the lymphedema specialist recently. The patient has a history of severe noncompliance. He complains of difficulty walking. He denies any fever, chills, abdominal pain. He has some nausea. He denies any sore throat. He does have joint pains including knee pains. Other systems reviewed and are negative. Because of the fluid retention, swelling of the legs and possibility of cellulitis of the legs, the patient has been admitted for further evaluation and management. The patient is known to have coronary artery disease and congestive heart failure with ejection fraction of 15-20%. For more details regarding the past history, family history, social history, surgical history and other details, please refer to History and Physical. His admission weight was 475 pounds now it is 434 pounds. He was treated with iv lasix drip+ dobutamine drip . Neurontin and tizanidine for muscle spasms. Potassium is 4.6 today magnesium is pending. echo 15%. Congestive heart failure was treated with IV Lasix, dobutamine, Bumex and metolazone. renal consult. monitor kidney function continue consultation with Dr. Valladares and Dr. Boggs morbid obesity. rehab consult appreciated discussed with Dr. Willis. Hold off on injections in the knees. fluid restriction extensively discussed with the patient and the family. Noncompliance Hypomagnesemia- replace cellulitis of the thighs-improving. Continue cefdinir Congestive heart failure- dobutamine has been stopped. Diuretics have been changed to oral medications. Microarray Specialist is planning to place AICD after his weight is decreased to 400 pounds. He would also like to refer him to heart failure clinic. Hypotension- Hold Lasix for now and check with the lapping machine set up operator. Patient is feeling somewhat better today and we'll discharge him today. However his long-term and short-term prognosis is very poor due to his multiple medical problems and noncompliance. We'll try to get him to heart failure clinic as outpatient. I'll see him in the office in 3 days. We'll get a 6 minute walk and check his oxygen requirements before discharge. He has been advised to get his CPAP machine and follow with the lapping machine set up operator as well as treatment technician. Medications Medications reviewed and reconciled for discharge. Allergy Allergies Coded Allergies Type Severity Reaction Last Updated Verified amoxicillin Allergy Intermediate Rash 07/10/18 Yes clavulanic acid Allergy Intermediate Rash 07/10/18 Yes Follow up in 3 days. DISPOSITION: Home Comments Discharge Management - 35 minutes. For other details please refer to discharge instructions PADDY LINCOLN MD Jul 17, 2018 10:29
--- NOTE | 2018-07-17 10:33 | PDOC ---
Infectious Disease Note Subjective Subjective feeling better though c/o cough ROS ROS no n/v/d Vital Sign Vital Signs Vital Signs Date Time Temp Pulse Resp B/P (MAP) Pulse Ox O2 Delivery O2 Flow Rate FiO2 07/17/18 09:36 Nasal Cannula 3.0 07/17/18 08:16 96 07/17/18 08:16 103 145/70 07/17/18 07:00 98.4 20 98.4 Physical Exam PHYSICAL EXAM GENERAL: Sitting in hte chair, alert, relaxed appearance HEENT: Pupils equal and reactive. Oral cavity, pharynx is clear. NECK: Supple. LUNGS: Clear to auscultation. HEART: S1, S2. ABDOMEN: Morbidly obese, soft, no guarding, no rebound. He has got some pitting thickness of his lower extremity abdominal area EXTREMITIES: No clubbing, cyanosis. Chronic swelling of the bilateral lower extremities, left greater than right and also had some fullness and thickening of groin tissue of his left thigh. SKIN: Otherwise warm to touch without signs of rash. NEUROLOGIC: Nonfocal and appropriate. PIV Labs Lab Laboratory Tests Test 07/16/18 12:07 07/16/18 17:02 07/16/18 20:50 07/17/18 05:00 Glucose (Fingerstick) 169 mg/dL (70-99) 175 mg/dL (70-99) 181 mg/dL (70-99) Sodium Level 139 mmol/L (136-145) Potassium Level 4.7 mmol/L (3.5-5.1) Chloride Level 102 mmol/L (98-107) Carbon Dioxide Level 27 mmol/L (21-32) Anion Gap 10 (6-14) Blood Urea Nitrogen 28 mg/dL (8-26) Creatinine 1.0 mg/dL (0.7-1.3) Estimated GFR (Cockcroft-Gault) 97.3 BUN/Creatinine Ratio 28 (6-20) Glucose Level 275 mg/dL (70-99) Calcium Level 8.7 mg/dL (8.5-10.1) Total Bilirubin 0.6 mg/dL (0.2-1.0) Aspartate Amino Transf (AST/SGOT) 36 U/L (15-37) Alanine Aminotransferase (ALT/SGPT) 28 U/L (16-63) Alkaline Phosphatase 204 U/L (46-116) Total Protein 8.6 g/dL (6.4-8.2) Albumin 3.2 g/dL (3.4-5.0) Albumin/Globulin Ratio 0.6 (1.0-1.7) Test 07/17/18 07:38 Glucose (Fingerstick) 263 mg/dL (70-99) Micro Microbiology 07/07/18 Blood Culture - Final, Complete NO GROWTH AFTER 5 DAYS Objective Assessment Left upper thigh cellulitis/yeast vs fluid retention - normal Procalcitonin NURY - stable Fluid overload Augmentin allergy - rash Morbid Obesity DM Plan Plan of Care omnicef and Fluconazole for 5 days off Zyvox and Flagyl Probiotics Diuresis BC NGTD CUCO TRENT MD Jul 17, 2018 10:33
[2018-07-17 11:00] VITALS: BP 140/79
--- NOTE | 2018-07-17 11:47 | NUR ---
SS following up with discharge planning. Discharge orders for home healthcare and oxygen received. SS phoned and faxed oxygen order to [facility], ; fax [phone]. SS phoned and faxed referral to [facility], ; fax [phone], as [facility] stated they could not accept pt at this time. SS providing pt's RN with oxygen tank for transport to home.
[2018-07-17] MEDS: tiZANidine 4 MG TABLET. PO PRN (13:09)
--- NOTE | 2018-07-17 14:05 | PDOC ---
PROGRESS NOTES Subjective Subjective He still admits low back,left hip and knee joint pain. Objective Objective Vital Signs Date Time Temp Pulse Resp B/P (MAP) Pulse Ox O2 Delivery O2 Flow Rate FiO2 07/17/18 13:01 94 Nasal Cannula 4.0 07/17/18 11:00 98.4 100 20 140/79 (99) 98.4 Intake and Output 07/17/18 06:59 Intake Total 2000 ml Output Total 2675 ml Balance -675 ml Intake Oral 2000 ml Output Urine Total 2675 ml Physical Exam Physical Exam He is resting on his right side and he continues painfully limited lumbar spine and bilateral knee joint with knee joint effusion.He is walking with roller walker with frequent rest breaks. Assessment Assessment Problems Medical Problems: (1) Bilateral lower leg cellulitis Status: Acute Plan Plan of Care Agree with plans for home with home health follow up. Comment Review of Relevant I have reviewed the following items mukund (where applicable) has been applied. Labs Laboratory Tests Test 07/15/18 16:47 07/15/18 20:56 07/16/18 02:55 07/16/18 07:18 Glucose (Fingerstick) 137 mg/dL (70-99) 252 mg/dL (70-99) 222 mg/dL (70-99) Sodium Level 138 mmol/L (136-145) Potassium Level 4.6 mmol/L (3.5-5.1) Chloride Level 101 mmol/L (98-107) Carbon Dioxide Level 28 mmol/L (21-32) Anion Gap 9 (6-14) Blood Urea Nitrogen 31 mg/dL (8-26) Creatinine 1.1 mg/dL (0.7-1.3) Estimated GFR (Cockcroft-Gault) 87.2 BUN/Creatinine Ratio 28 (6-20) Glucose Level 265 mg/dL (70-99) Calcium Level 8.7 mg/dL (8.5-10.1) Magnesium Level 2.1 mg/dL (1.8-2.4) Total Bilirubin 0.5 mg/dL (0.2-1.0) Aspartate Amino Transf (AST/SGOT) 33 U/L (15-37) Alanine Aminotransferase (ALT/SGPT) 29 U/L (16-63) Alkaline Phosphatase 200 U/L (46-116) Total Protein 8.7 g/dL (6.4-8.2) Albumin 3.1 g/dL (3.4-5.0) Albumin/Globulin Ratio 0.6 (1.0-1.7) Test 07/16/18 12:07 07/16/18 17:02 07/16/18 20:50 07/17/18 05:00 Glucose (Fingerstick) 169 mg/dL (70-99) 175 mg/dL (70-99) 181 mg/dL (70-99) Sodium Level 139 mmol/L (136-145) Potassium Level 4.7 mmol/L (3.5-5.1) Chloride Level 102 mmol/L (98-107) Carbon Dioxide Level 27 mmol/L (21-32) Anion Gap 10 (6-14) Blood Urea Nitrogen 28 mg/dL (8-26) Creatinine 1.0 mg/dL (0.7-1.3) Estimated GFR (Cockcroft-Gault) 97.3 BUN/Creatinine Ratio 28 (6-20) Glucose Level 275 mg/dL (70-99) Calcium Level 8.7 mg/dL (8.5-10.1) Total Bilirubin 0.6 mg/dL (0.2-1.0) Aspartate Amino Transf (AST/SGOT) 36 U/L (15-37) Alanine Aminotransferase (ALT/SGPT) 28 U/L (16-63) Alkaline Phosphatase 204 U/L (46-116) Total Protein 8.6 g/dL (6.4-8.2) Albumin 3.2 g/dL (3.4-5.0) Albumin/Globulin Ratio 0.6 (1.0-1.7) Test 07/17/18 07:38 07/17/18 12:10 Glucose (Fingerstick) 263 mg/dL (70-99) 165 mg/dL (70-99) Laboratory Tests Test 07/16/18 17:02 07/16/18 20:50 07/17/18 05:00 07/17/18 07:38 Glucose (Fingerstick) 175 mg/dL (70-99) 181 mg/dL (70-99) 263 mg/dL (70-99) Sodium Level 139 mmol/L (136-145) Potassium Level 4.7 mmol/L (3.5-5.1) Chloride Level 102 mmol/L (98-107) Carbon Dioxide Level 27 mmol/L (21-32) Anion Gap 10 (6-14) Blood Urea Nitrogen 28 mg/dL (8-26) Creatinine 1.0 mg/dL (0.7-1.3) Estimated GFR (Cockcroft-Gault) 97.3 BUN/Creatinine Ratio 28 (6-20) Glucose Level 275 mg/dL (70-99) Calcium Level 8.7 mg/dL (8.5-10.1) Total Bilirubin 0.6 mg/dL (0.2-1.0) Aspartate Amino Transf (AST/SGOT) 36 U/L (15-37) Alanine Aminotransferase (ALT/SGPT) 28 U/L (16-63) Alkaline Phosphatase 204 U/L (46-116) Total Protein 8.6 g/dL (6.4-8.2) Albumin 3.2 g/dL (3.4-5.0) Albumin/Globulin Ratio 0.6 (1.0-1.7) Test 07/17/18 12:10 Glucose (Fingerstick) 165 mg/dL (70-99) Microbiology 07/07/18 Blood Culture - Final, Complete NO GROWTH AFTER 5 DAYS Medications Current Medications Ondansetron HCl (Zofran) 4 mg 1X ONCE IV Last administered on 07/07/18 18:36; Start 07/07/18 at 18:15; Stop 07/07/18 at 18:16; Status DC Morphine Sulfate (Morphine Sulfate) 4 mg 1X ONCE IV Last administered on 18:38; Start 07/07/18 at 18:15; Stop 07/07/18 at 18:16; Status DC Vancomycin HCl (Vanco Per Pharmacy) 1 each PRN DAILY PRN MC SEE COMMENTS Last administered on 07/07/18 21:02; Start 07/07/18 at 18:45; Stop 07/08/18 at 11:22; Status DC Vancomycin HCl 2 gm/Sodium Chloride 500 ml @ 250 mls/hr 1X ONCE IV Last administered on 07/07/18 18:54; Start 07/07/18 at 19:00; Stop 07/07/18 at 20:59; Status DC Morphine Sulfate (Morphine Sulfate) 4 mg PRN Q2HR PRN IV PAIN Last administered on 07/08/18at 19:08; Start 07/07/18 at 20:15; Stop 07/08/18 at 20:14; Status DC Acetaminophen (Tylenol) 650 mg PRN Q4HRS PRN PO FEVER; Start 07/07/18 at 20:15; Stop 07/08/18 at 20:14; Status DC Vancomycin HCl 1.75 gm/Sodium Chloride 500 ml @ 250 mls/hr Q8H IV Last administered on 07/08/18at 03:22; Start 07/08/18 at 03:00; Stop 07/08/18 at 11:22; Status DC Vancomycin HCl (Vancomycin Trough Level) 1 each 1X ONCE MC ; Start 07/08/18 at 18:30; Stop 07/08/18 at 18:30; Status DC Albuterol Sulfate (Ventolin Neb Soln) 2.5 mg PRN Q4HRS PRN NEB SHORTNESS OF BREATH Last administered on 07/08/18at 08:01; Start 07/07/18 at 23:15 Bumetanide (Bumex) 1 mg DAILY PO Last administered on 07/08/18at 09:06; Start 07/08/18 at 09:00; Stop 07/08/18 at 13:02; Status DC Carvedilol (Coreg) 6.25 mg BIDWMEALS PO Last administered on 07/17/18at 08:14; Start 07/08/18 at 08:00 Carvedilol (Coreg) 6.25 mg BIDWMEALS PO ; Start 07/08/18 at 08:00; Status UNV Cetirizine HCl (ZyrTEC) 10 mg DAILY PO Last administered on 07/17/18at 08:16; Start 07/08/18 at 09:00 Clopidogrel Bisulfate (Plavix) 75 mg DAILY PO Last administered on 07/17/18 08 :15; Start 07/08/18 at 09:00 Lisinopril (Prinivil) 20 mg DAILY PO Last administered on 07/17/18at 08:16; Start 07/08/18 at 09:00 Trimethoprim/ Sulfamethoxazole (Bactrim Ds) 1 tab BID PO ; Start 07/08/18 at 09: 00; Status UNV Pantoprazole Sodium (Protonix) 40 mg DAILYAC PO Last administered on 07/17/18at 08:15; Start 07/08/18 at 07:30 Non-Formulary Medication (Doxycycline Monohydrate ) 1 cap BID PO ; Start at 09:00; Status UNV Insulin Glargine (Lantus) 80 units DAILYAC SQ Last administered on 07/08/18 09: 42; Start 07/08/18 at 07:30; Stop 07/08/18 at 10:21; Status DC Non-Formulary Medication (Linaclotide (Linzess)) 145 mcg DAILY07 PO Last administered on 07/09/18 07:00; Start 07/08/18 at 07:00; Stop 07/10/18 at 16:57; Status DC Metformin HCl (Glucophage) 1,000 mg BIDWMEALS PO Last administered on 07/11/18 08:59; Start 07/08/18 at 08:00; Stop 07/11/18 at 19:12; Status DC Montelukast Sodium (Singulair) 10 mg QHS PO Last administered on 07/16/18 21: 14; Start 07/08/18 at 21:00 Atorvastatin Calcium (Lipitor) 5 mg QHS PO Last administered on 07/16/18 21:14 ; Start 07/08/18 at 21:00 Insulin Glargine (Lantus) 80 units 1400 SQ ; Start 07/08/18 at 14:00; Status Cancel Aspirin (Ecotrin) 81 mg DAILYWBKFT PO Last administered on 07/17/18 08:15; Start 07/08/18 at 11:00 Carvedilol (Coreg) 6.25 mg BIDWMEALS PO ; Start 07/08/18 at 11:00; Status Cancel Famotidine (Pepcid) 20 mg HS PO Last administered on 07/16/18 21:14; Start 07/08/18 at 21:00 Furosemide (Lasix) 80 mg DAILY PO Last administered on 07/08/18 12:47; Start at 11:00; Stop 07/08/18 at 13:02; Status DC Gabapentin (Neurontin) 300 mg HS PO Last administered on 07/11/18 20:32; Start 07/08/18 at 21:00; Stop 07/12/18 at 10:20; Status DC Insulin Glargine (Lantus) 100 units BID SQ ; Start 07/08/18 at 21:00; Status Cancel Insulin Human Lispro (HumaLOG) 70 units TIDWMEALS SQ Last administered on at 08:38; Start 07/08/18 at 12:00; Stop 07/16/18 at 10:18; Status DC Albuterol/ Ipratropium (Duoneb) 3 ml RTQID NEB Last administered on 07/17/18at 11:47; Start 07/08/18 at 12:00 Bupropion HCl (Wellbutrin Xl) 300 mg DAILY PO Last administered on 07/17/18 08 :15; Start 07/08/18 at 11:00 Non-Formulary Medication (Dexlansoprazole (Dexilant)) 1 cap DAILY PO ; Start 07/09/18 at 09:00; Stop 07/09/18 at 09:00; Status DC Non-Formulary Medication (Glycopyrrolate/ Formoterol Fum (Bevespi Aerosphere Inhaler)) 10.7 gm DAILY IH ; Start 07/09/18 at 09:00; Stop 07/10/18 at 10:43; Status DC Non-Formulary Medication (Linaclotide (Linzess)) 145 mcg DAILY PO ; Start at 09:00; Status UNV Non-Formulary Medication (Metformin Hcl (Glucophage)) 1,000 mg BIDWMEALS PO ; Start 07/08/18 at 17:00; Status UNV Non-Formulary Medication (Montelukast Sodium (Singulair Tablet)) 10 mg HS PO ; Start 07/08/18 at 21:00; Status UNV Non-Formulary Medication (Pravastatin Sodium ) 1 tab QHS PO ; Start 07/08/18 at 21:00; Status UNV Insulin Glargine (Lantus) 80 units BID SQ Last administered on 07/17/18at 09:46 ; Start 07/08/18 at 21:00 Ondansetron HCl (Zofran) 4 mg PRN Q6HRS PRN IV NAUSEA/VOMITING Last administered on 07/08/18at 19:26; Start 07/08/18 at 11:15 Nicotine (Nicoderm Cq 21mg) 1 patch DAILY TD Last administered on 07/16/18at 23: 30; Start 07/08/18 at 11:30 Albuterol Sulfate (Ventolin Neb Soln) 2.5 mg RTQID NEB ; Start 07/08/18 at 12:00 ; Stop 07/08/18 at 12:01; Status DC Linezolid (Zyvox) 600 mg BID PO Last administered on 07/11/18 09:20; Start 07/08 at 12:00; Stop 07/11/18 at 11:07; Status DC Metronidazole (Flagyl) 500 mg Q12HR PO Last administered on 07/11/18 08:59; Start 07/08/18 at 12:00; Stop 07/11/18 at 11:07; Status DC Fluconazole (Diflucan) 100 mg DAILY PO Last administered on 07/13/18 08:18; Start 07/08/18 at 12:00; Stop 07/13/18 at 09:28; Status DC Cefepime HCl (Maxipime) 2 gm Q12HR IVP Last administered on 07/13/18 08:13; Start 07/08/18 at 12:00; Stop 07/13/18 at 09:28; Status DC Diclofenac Sodium (Voltaren) 1 chung BID TP Last administered on 07/16/18 08:41 ; Start 07/08/18 at 21:00 Metolazone (Zaroxolyn) 5 mg DAILY PO Last administered on 07/17/18 08:15; Start 07/08/18 at 14:00 Furosemide (Lasix) 40 mg 1X ONCE IVP Last administered on 07/08/18 17:56; Start 07/08/18 at 13:00; Stop 07/08/18 at 13:19; Status DC Furosemide (Lasix) 40 mg Q6HRS IVP Last administered on 07/09/18 06:17; Start 07/08/18 at 18:00; Stop 07/09/18 at 11:26; Status DC Diphenhydramine HCl (Benadryl) 25 mg PRN Q6HRS PRN PO ITCHING Last administered on 07/16/18 23:31; Start 07/08/18 at 20:00 Lactobacillus Rhamnosus (Culturelle) 1 cap BID PO Last administered on 08:14; Start 07/08/18 at 21:00 Acetaminophen/ Hydrocodone Bitart (Lortab 5/325) 1 tab PRN Q4HRS PRN PO PAIN Last administered on 07/11/18 06:25; Start 07/09/18 at 10:30; Stop 07/11/18 at 09: 12; Status DC Dobutamine HCl/ Dextrose 250 ml @ 32.318 mls/ hr CONT PRN IV PER PROTOCOL Last administered on 07/14/18at 11:33; Start 07/09/18 at 11:30; Stop 07/14/18 at 13: 03; Status DC Furosemide 100 mg/ Sodium Chloride 100 ml @ 5 mls/hr CONT PRN IV SEE I/O RECORD Last administered on 07/14/18at 20:15; Start 07/09/18 at 11:15; Stop at 14:04; Status DC Methylprednisolone Acetate (DEPO-Medrol 40MG VIAL) 40 mg 1X ONCE IM Last administered on 07/10/18 09:15; Start 07/10/18 at 09:15; Stop 07/10/18 at 09:21; Status DC Bupivacaine HCl (Sensorcaine-Mpf 0.25%) 10 ml 1X ONCE IJ Last administered on 07/10/18 09:15; Start 07/10/18 at 09:15; Stop 07/10/18 at 09:21; Status DC Enoxaparin Sodium (Lovenox 80mg Syringe) 80 mg Q12HR SQ ; Start 07/10/18 at 10:15 ; Stop 07/10/18 at 11:14; Status DC Budesonide (Pulmicort) 0.5 mg RTBID NEB Last administered on 07/17/18 08:15; Start 07/10/18 at 20:00 Budesonide (Pulmicort) 0.5 mg 1X ONCE NEB Last administered on 07/10/18 11:25 ; Start 07/10/18 at 10:15; Stop 07/10/18 at 10:31; Status DC Enoxaparin Sodium (Lovenox 60mg Syringe) 60 mg Q12HR SQ Last administered on 08:17; Start 07/10/18 at 12:00 Lubiprostone (Amitiza) 8 mcg BIDWMEALS PO Last administered on 4/5/19at 17:36; Start 07/10/18 at 14:00; Stop 07/10/18 at 20:00; Status DC Non-Formulary Medication (Linaclotide (Linzess)) 145 mcg DAILY07 PO Last administered on 07/17/18 06:04; Start 07/11/18 at 07:00 Zolpidem Tartrate (Ambien) 5 mg PRN QHS PRN PO INSOMNIA Last administered on 23:31; Start 07/10/18 at 18:15 Acetaminophen/ Hydrocodone Bitart (Lortab 10/325) 1 tab PRN Q6HRS PRN PO PAIN Last administered on 07/17/18 09:36; Start 07/11/18 at 09:15 Gabapentin (Neurontin) 300 mg TID PO Last administered on 07/17/18 08:16; Start 07/12/18 at 10:30 Tizanidine HCl (Zanaflex) 4 mg PRN Q8HRS PRN PO MUSCLE SPASMS Last administered on 07/17/18 13:09; Start 07/12/18 at 10:30 Cefdinir (Omnicef) 300 mg BID PO Last administered on 07/17/18 08:12; Start at 21:00 Fluconazole (Diflucan) 200 mg DAILY PO Last administered on 07/17/18 08:15; Start 07/14/18 at 09:00 Magnesium Sulfate/ Dextrose 100 ml @ 25 mls/hr 1X ONCE IV Last administered on 07/14/18 09:50; Start 07/14/18 at 10:00; Stop 07/14/18 at 13:59; Status DC Furosemide (Lasix) 40 mg BID92 IVP ; Start 07/16/18 at 09:00; Stop 07/16/18 at 14:00; Status DC Furosemide (Lasix) 40 mg 1X ONCE IVP Last administered on 07/15/18 14:45; Start 07/15/18 at 14:45; Stop 07/16/18 at 10:12; Status DC Bumetanide (Bumex) 1 mg BID92 PO Last administered on 07/17/18 08:14; Start at 10:15 Insulin Human Lispro (HumaLOG) 75 units TIDWMEALS SQ Last administered on 4/12/ 19at 13:03; Start 07/16/18 at 12:00 Fluticasone Propionate (Flonase) 2 spray DAILY NS Last administered on at 08:12; Start 07/17/18 at 09:00 Active Scripts Active Gabapentin (Gabapentin) 300 Mg Capsule 300 Mg PO HS 30 Days Cefdinir 300 Mg Capsule 300 Mg PO BID 7 Days Lantus Solostar (Insulin Glargine,Hum.rec.anlog) 100 Unit/1 Ml Insuln.pen 100 Unit SQ BID Humalog (Insulin Lispro) 100 Unit/1 Ml Vial 70 Unit SQ TIDAC 30 Days Wellbutrin Xl (Bupropion Hcl) 300 Mg Tab.er.24h 1 Tab PO DAILY Furosemide 80 Mg Tablet 80 Mg PO DAILY 30 Days Duoneb 0.5-3(2.5) Mg/3 Ml (Albuterol/Ipratropium) 3 Ml Ampul.neb 3 Ml NEB RTQID 30 Days Glucophage (Metformin Hcl) 1,000 Mg Tablet 1,000 Mg PO BIDWMEALS Lisinopril 20 Mg Tablet 20 Mg PO DAILY Aspirin Ec (Aspirin) 81 Mg Tablet. 81 Mg PO DAILYWBKFT Reported Bactrim Ds Tablet (Sulfamethoxazole/Trimethoprim) 1 Each Tablet 1 Tab PO BID Lisinopril 20 Mg Tablet 1 Tab PO DAILY Clopidogrel (Clopidogrel Bisulfate) 75 Mg Tablet 1 Tab PO DAILY Toujeo Solostar (Insulin Glargine,Hum.rec.anlog) 300 Unit/1 Ml Insuln.pen 300 Unit SQ BID Metformin Hcl 1,000 Mg Tablet 1,000 Mg PO BIDWMEALS Singulair Tablet (Montelukast Sodium) 10 Mg Tablet 1 Tab PO DAILY Coreg (Carvedilol) 6.25 Mg Tablet 6.25 Mg PO BIDWMEALS Pravastatin Sodium 20 Mg Tablet 1 Tab PO DAILY Cetirizine Hcl 10 Mg Tablet 1 Tab PO DAILY Bumetanide 1 Mg Tablet 1 Tab PO DAILY Linzess (Linaclotide) 145 Mcg Capsule 145 Mcg PO DAILY07 Dexilant (Dexlansoprazole) 60 Mg Cap. 1 Cap PO DAILY Doxycycline Monohydrate 100 Mg Capsule 1 Cap PO BID Bevespi Aerosphere Inhaler (Glycopyrrolate/Formoterol Fum) 10.7 Gm Hfa.aer.ad 10.7 Gm IH DAILY Carvedilol (Carvedilol) 6.25 Mg Tablet 1 Tab PO BID Pravastatin Sodium 20 Mg Tablet 1 Tab PO QHS Singulair Tablet (Montelukast Sodium) 10 Mg Tablet 10 Mg PO HS Famotidine 20 Mg Tablet 20 Mg PO HS Dexilant (Dexlansoprazole) 60 Mg Cap. 1 Cap PO DAILY Linzess (Linaclotide) 145 Mcg Capsule 145 Mcg PO DAILY Vitals/I & O Vital Sign - Last 24 Hours 07/16/18 07/16/18 07/16/18 07/16/18 15:00 15:44 16:58 19:04 Temp 97.4 97.6 97.4 97.6 Pulse 79 79 102 Resp 20 20 B/P (MAP) 121/75 (90) 121/75 94/61 (72) Pulse Ox 95 92 O2 Delivery Nasal Cannula Room Air Nasal Cannula O2 Flow Rate 3.0 2.0 07/16/18 07/16/18 07/16/18 07/16/18 19:14 20:00 20:06 20:12 Pulse Ox 94 95 O2 Delivery Room Air Room Air Room Air Room Air O2 Flow Rate 2.0 07/16/18 07/17/18 07/17/18 07/17/18 22:42 02:06 03:43 07:00 Temp 98.1 97.4 98.4 98.1 97.4 98.4 Pulse 104 103 97 Resp 22 20 20 B/P (MAP) 128/71 (90) 139/61 (87) 145/70 (95) Pulse Ox 98 94 96 O2 Delivery Nasal Cannula Nasal Cannula Room Air Room Air O2 Flow Rate 2.0 07/17/18 07/17/18 07/17/18 07/17/18 08:00 08:14 08:15 08:16 Pulse 103 103 B/P (MAP) 145/70 145/70 Pulse Ox 96 O2 Delivery Nasal Cannula Room Air O2 Flow Rate 4.0 07/17/18 07/17/18 07/17/18 07/17/18 08:16 09:36 10:36 11:00 Temp 98.4 98.4 Pulse 100 Resp 20 B/P (MAP) 140/79 (99) Pulse Ox 96 97 O2 Delivery Room Air Nasal Cannula Nasal Cannula Room Air O2 Flow Rate 3.0 3.0 07/17/18 13:01 Pulse Ox 94 O2 Delivery Nasal Cannula O2 Flow Rate 4.0 Intake and Output 07/16/18 07/16/18 07/17/18 14:59 22:59 06:59 Intake Total 1000 ml 1000 ml Output Total 2675 ml Balance -1675 ml 1000 ml ALVARO RHOADES MD Jul 17, 2018 14:05
[2018-07-17 14:30] VITALS: BP 122/67
--- NOTE | 2018-07-17 15:13 | NUR ---
SS following up with discharge planning. [facility] contacted SS and stated they could not accept pt due to non-compliance. SS contacted [facility], ; fax [phone], and was notified that they could take pt. SS phoned and faxed referral to [facility]. SS phoned and faxed scipt for walker to [facility], ; fax [phone]. Jai from [facility] reported that walker was ordered and would be delivered to pt's home. SS provided pt with oxygen tank for return to home.
--- NOTE | 2018-07-17 17:24 | NUR ---
Discharge Note: [facility] Discharge instructions and discharge home medications reviewed with Patient and a copy given. All questions have been answered and understanding verbalized. The following instructions and handouts were given: diet info, exercise info, heart failure info, sleep apnea info, discharge instructions. Discontinued lines and drains: Peripheral IV intact X 2. Patient discharged to Home w/services with Significant Other via Wheelchair at 1724. Addendum: 07/17/18 at 1940 by MARIYA BETHEA RN Patient went home on O2. Patient went home with home health & will have PT/OT/lymphedema.
== END 2018-07-17 17:24 | disposition home health service (06) | DRG 682 ==
LOC: ER 17:07 → 5 NORTH 19:05 → MERGE 19:05 → 2 SOUTH 07-09 12:44
PROVIDERS: ADMIT Internal Medicine; ATTEND Internal Medicine
PROC: 5A09357 Assistance with Respiratory Ventilation, Less than 24 Consecutive Hours, Continuous Positive Airway Pressure (ICD-10-PCS; principal; 2018-07-09)
PROC: 5A09357 Assistance with Respiratory Ventilation, Less than 24 Consecutive Hours, Continuous Positive Airway Pressure (ICD-10-PCS; 2018-07-11)
PROC: 5A09357 Assistance with Respiratory Ventilation, Less than 24 Consecutive Hours, Continuous Positive Airway Pressure (ICD-10-PCS; 2018-07-12)
PROC: 5A09357 Assistance with Respiratory Ventilation, Less than 24 Consecutive Hours, Continuous Positive Airway Pressure (ICD-10-PCS; 2018-07-12)
DX: N17.9 Acute kidney failure, unspecified (principal); I50.43 Acute on chronic combined systolic (congestive) and diastolic (congestive) heart failure; J96.01 Acute respiratory failure with hypoxia; L03.115 Cellulitis of right lower limb; I13.0 Hypertensive heart and chronic kidney disease with heart failure and stage 1 through stage 4 chronic kidney disease, or unspecified chronic kidney disease; I42.9 Cardiomyopathy, unspecified; Z68.44 Body mass index [BMI] 60.0-69.9, adult; L03.116 Cellulitis of left lower limb; E87.5 Hyperkalemia; E66.01 Morbid (severe) obesity due to excess calories; D63.8 Anemia in other chronic diseases classified elsewhere; E11.22 Type 2 diabetes mellitus with diabetic chronic kidney disease; E11.42 Type 2 diabetes mellitus with diabetic polyneuropathy; E78.2 Mixed hyperlipidemia; E83.42 Hypomagnesemia; F17.210 Nicotine dependence, cigarettes, uncomplicated; F19.10 Other psychoactive substance abuse, uncomplicated; G47.33 Obstructive sleep apnea (adult) (pediatric); I25.10 Atherosclerotic heart disease of native coronary artery without angina pectoris; I25.2 Old myocardial infarction; I89.0 Lymphedema, not elsewhere classified; K21.0 Gastro-esophageal reflux disease with esophagitis; K59.01 Slow transit constipation; F41.9 Anxiety disorder, unspecified; G89.29 Other chronic pain; J44.9 Chronic obstructive pulmonary disease, unspecified; M17.0 Bilateral primary osteoarthritis of knee; N18.9 Chronic kidney disease, unspecified; Z79.4 Long term (current) use of insulin; Z82.49 Family history of ischemic heart disease and other diseases of the circulatory system; Z87.11 Personal history of peptic ulcer disease; Z88.0 Allergy status to penicillin; Z90.49 Acquired absence of other specified parts of digestive tract; Z91.19 Patient's noncompliance with other medical treatment and regimen; Z87.01 Personal history of pneumonia (recurrent); Z95.5 Presence of coronary angioplasty implant and graft; Z71.6 Tobacco abuse counseling; Z79.899 Other long term (current) drug therapy; R21 Rash and other nonspecific skin eruption
CPT/HCPCS: 36415; 36600; 71045; 71046; 71250; 80048; 80053; 82805; 82962; 83605; 83735; 83880; 84145; 85025; 85651; 87040; 93306; 93923; 93970; 94618; 94640; 94660; 94760; 96365; 96375; J0692; J1030; J1250; J1650; J1815; J1940; J2270; J2405; J3370; J3475; J3490; J7040; J7613; J7620; J7626; Q0163; 97116; 97530; 97535; 99285-25

== ENCOUNTER 2018-07-07 17:07 | Emergency (ER) | payer MEDICARE, OTHER ==
[2018-07-07] MEDS ORDERED: DOXY100C14 PO (23:41)
[2018-07-07] MEDS ORDERED: INSU300I SQ (23:41)
[2018-07-07] MEDS ORDERED: DEXL60CA2 PO (23:41)
[2018-07-07] MEDS ORDERED: LINZESS145 MCG PO (23:41)
[2018-07-07] MEDS ORDERED: CETI10TA16 PO (23:41)
[2018-07-07] MEDS ORDERED: CARV6.2511 PO (23:41)
[2018-07-07] MEDS ORDERED: PRAV20TA2 PO (23:41)
[2018-07-07] MEDS ORDERED: SULF1TAB24 PO (23:41)
[2018-07-07] MEDS ORDERED: LISI-334 PO (23:41)
[2018-07-07] MEDS ORDERED: CLOP75TA PO (23:41)
[2018-07-07] MEDS ORDERED: MONT10TA6 PO (23:41)
[2018-07-07] MEDS ORDERED: BUME1TAB3 PO (23:41)
[2018-07-07] MEDS ORDERED: CARV6.25 PO (23:41)
[2018-07-07] MEDS ORDERED: METF10007 PO (23:41)
== END 2018-07-07 17:08 | disposition left against medical advice (07) ==
LOC: MERGE 17:07 → ER 17:07
DX: L03.116 Cellulitis of left lower limb (principal); L03.115 Cellulitis of right lower limb; Z53.21 Procedure and treatment not carried out due to patient leaving prior to being seen by health care provider
CPT/HCPCS: 94640

== ENCOUNTER 2019-06-05 15:34 | Emergency (ER) | payer MEDICARE ==
[~2019-06-05] VITALS: Ht 180.3 cm; Wt 176.3 kg
[~2019-06-05 15:34] MED LIST changes: +BUME1TAB3 PO; +BUME2TAB3 PO; +CARV6.25 PO; +CETI10TA16 PO; +CLOP75TA PO; +DOXY100C14 PO; +GUAI-108 PO; +INSU100I11 SQ; -INSU100V SQ; +INSU100V6 SQ; +LISI1TAB23 PO; -LISI1TAB3 PO; +MONT10TA49 PO; -MONT10TA6 PO; -PANT40TA5 PO; +PANT40TA77 PO; +SEMA0.25 SQ; +SIMV20TA18 PO; -SIMV20TA3 PO; -TIZA4TAB PO; +TIZA4TAB2 PO
[2019-06-05] MEDS ORDERED: FAMOTIDINE 20 MG/2 ML VIAL IVP ONE (15:45)
[2019-06-05] MEDS ORDERED: IV NORMAL SALINE 1000ML BAG 1,000 ML IV ONE (15:45)
[2019-06-05] MEDS ORDERED: methylPREDNISolone SOD SUCC PF 125 MG/2 ML VIAL. IV ONE (15:45)
[2019-06-05 16:26] LABS: BASO # 0.1 x10^3/uL (0.0-0.2); BASO % 1 % (0-3); EOS # 0.5 x10^3/uL (0.0-0.7); EOS % 4 % (0-3); HEMOGLOBIN 15.2 g/dL (13.0-17.5); LYMPH # 2.5 x10^3/uL (1.0-4.8); LYMPH % 21 % (24-48); MEAN CORPUSCULAR HEMOGLOBIN 27 pg (25-35); MEAN CORPUSCULAR HGB CONC 33 g/dL (31-37); MEAN CORPUSCULAR VOLUME 83 fL (79-100); MONO # 1.2 x10^3/uL (0.0-1.1); MONO % 10 % (0-9); NEUT # 7.8 x10^3/uL (1.8-7.7); NEUT % 65 % (31-73); PLATELET COUNT 242 x10^3/uL (140-400); RED BLOOD COUNT 5.57 x10^6/uL (4.30-5.70); RED CELL DISTRIBUTION WIDTH 16.2 % (11.5-14.5); WHITE BLOOD COUNT 12.1 x10^3/uL (4.0-11.0)
[2019-06-05 16:32] LABS: CALCIUM 9.3 mg/dL (8.5-10.1); CREATININE 1.2 mg/dL (0.7-1.3); GFR 78.5; POTASSIUM 4.1 mmol/L (3.5-5.1)
[2019-06-05 16:39] LABS: ALBUMIN 3.7 g/dL (3.4-5.0); ALBUMIN/GLOBULIN RATIO 0.7 (1.0-1.7); TOTAL BILIRUBIN 0.6 mg/dL (0.2-1.0)
[2019-06-05] MEDS ORDERED: diphenhydrAMINE 50 MG/ML VIAL IVP ONE (17:00)
[2019-06-05] MEDS ORDERED: EPINEPHrine 1 MG/ML VIAL SQ ONE (17:00)
--- NOTE | 2019-06-05 17:11 | PHYS DOC ---
Past Medical History Past Medical History: Anemia, Asthma, CAD, CHF, Diabetes-Type II, High Cholesterol, Hypertension, [place], Other Additional Past Medical Histor: chronic lyphadema. morbid obesity Past Surgical History: Appendectomy, Other Additional Past Surgical Histo: cyst removal, knee arthroscope x3 Smoking Status: Current Every Day Smoker Alcohol Use: Occasionally Drug Use: None Adult General Chief Complaint Chief Complaint: ALLERGIC REACTION HPI HPI Patient is a 49 year old male who presents to the ED today complaining of uvula swelling that began at 11 AM this morning. Patient denies being on lisinopril on any other medications that could've caused these symptoms. Reports difficulty swallowing due to the swollen uvula. Reports taking Benadryl with no relief. Patient reports last night she was at a [employer] where somebody was slipping ecst asy which he ingested. Review of Systems Review of Systems Constitutional: Denies fever or chills [] Eyes: Denies change in visual acuity, redness, or eye pain [] HENT: Reports uvular swelling and difficulty swallowing. Denies nasal congestion or sore throat [] Respiratory: Denies cough or shortness of breath [] Cardiovascular: No additional information not addressed in HPI [] GI: Denies abdominal pain, nausea, vomiting, bloody stools or diarrhea [] : Denies dysuria or hematuria [] Musculoskeletal: Denies back pain or joint pain [] Integument: Denies rash or skin lesions [] Neurologic: Denies headache, focal weakness or sensory changes [] All other systems were reviewed and found to be within normal limits, except as documented in this note. Current Medications Current Medications Current Medications Medications (Trade) Dose Ordered Sig/Linden Start Time Stop Time Status Last Admin Dose Admin Diphenhydramine HCl (Benadryl) 25 mg 1X ONCE 06/05/19 17:00 06/05/19 17:03 DC 06/05/19 17:08 25 MG Epinephrine HCl (Adrenalin) 1 mg 1X ONCE 06/05/19 17:00 06/05/19 17:03 DC 06/05/19 17:10 1 MG Famotidine (Pepcid Vial) 20 mg 1X ONCE 06/05/19 15:45 06/05/19 15:49 DC 06/05/19 15:57 20 MG Methylprednisolone Sodium Succinate (SOLU-Medrol 125MG VIAL) 125 mg 1X ONCE 06/05/19 15:45 06/05/19 15:49 DC 06/05/19 15:57 125 MG Sodium Chloride 1,000 ml @ 1,000 mls/hr 1X ONCE 06/05/19 15:45 06/05/19 16:44 DC 06/05/19 15:56 1,000 MLS/HR Allergies Allergies Allergies Coded Allergies Type Severity Reaction Last Updated Verified amoxicillin Allergy Intermediate 05/13/19 Yes clavulanic acid Allergy Intermediate 05/13/19 Yes Physical Exam Physical Exam Constitutional: Well developed, well nourished, no acute distress, non-toxic a ppearance. [] HENT: Normocephalic, atraumatic, bilateral external ears normal, oropharynx moist, no oral exudates, nose normal. [] Airway is open, uvula appears mildly swollen. Eyes: PERRLA, EOMI, conjunctiva normal, no discharge. [] Neck: Normal range of motion, no tenderness, supple, no stridor. [] Cardiovascular:Heart rate regular rhythm, no murmur [] Lungs & Thorax: Bilateral breath sounds clear to auscultation [] Abdomen: Bowel sounds normal, soft, no tenderness, no masses, no pulsatile masses. [] Skin: Warm, dry, no erythema, no rash. [] Back: No tenderness, no CVA tenderness. [] Extremities: No tenderness, no cyanosis, no clubbing, ROM intact, no edema. [] Neurologic: Alert and oriented X 3, normal motor function, normal sensory function, no focal deficits noted. [] Psychologic: Affect normal, judgement normal, mood normal. [] Current Patient Data Vital Signs Vital Signs Date Time Temp Pulse Resp B/P (MAP) Pulse Ox O2 Delivery O2 Flow Rate FiO2 06/05/19 17:30 94 22 145/79 (101) 96 Room Air 06/05/19 15:35 99.2 99.2 Lab Values Laboratory Tests Test 06/05/19 15:47 White Blood Count 12.1 x10^3/uL (4.0-11.0) H Red Blood Count 5.57 x10^6/uL (4.30-5.70) Hemoglobin 15.2 g/dL (13.0-17.5) Hematocrit 46.0 % (39.0-53.0) Mean Corpuscular Volume 83 fL (79-100) Mean Corpuscular Hemoglobin 27 pg (25-35) Mean Corpuscular Hemoglobin Concent 33 g/dL (31-37) Red Cell Distribution Width 16.2 % (11.5-14.5) H Platelet Count 242 x10^3/uL (140-400) Neutrophils (%) (Auto) 65 % (31-73) Lymphocytes (%) (Auto) 21 % (24-48) L Monocytes (%) (Auto) 10 % (0-9) H Eosinophils (%) (Auto) 4 % (0-3) H Basophils (%) (Auto) 1 % (0-3) Neutrophils # (Auto) 7.8 x10^3/uL (1.8-7.7) H Lymphocytes # (Auto) 2.5 x10^3/uL (1.0-4.8) Monocytes # (Auto) 1.2 x10^3/uL (0.0-1.1) H Eosinophils # (Auto) 0.5 x10^3/uL (0.0-0.7) Basophils # (Auto) 0.1 x10^3/uL (0.0-0.2) Sodium Level 138 mmol/L (136-145) Potassium Level 4.1 mmol/L (3.5-5.1) Chloride Level 98 mmol/L (98-107) Carbon Dioxide Level 29 mmol/L (21-32) Anion Gap 11 (6-14) Blood Urea Nitrogen 24 mg/dL (8-26) Creatinine 1.2 mg/dL (0.7-1.3) Estimated GFR (Cockcroft-Gault) 78.5 BUN/Creatinine Ratio 20 (6-20) Glucose Level 259 mg/dL (70-99) H Calcium Level 9.3 mg/dL (8.5-10.1) Total Bilirubin 0.6 mg/dL (0.2-1.0) Aspartate Amino Transferase (AST) 18 U/L (15-37) Alanine Aminotransferase (ALT) 21 U/L (16-63) Alkaline Phosphatase 147 U/L (46-116) H Total Protein 9.0 g/dL (6.4-8.2) H Albumin 3.7 g/dL (3.4-5.0) Albumin/Globulin Ratio 0.7 (1.0-1.7) L Laboratory Tests 06/05/19 15:47 Laboratory Tests 06/05/19 15:47 EKG EKG [] Radiology/Procedures Radiology/Procedures [] Course & Med Decision Making Course & Med Decision Making Pertinent Labs and Imaging studies reviewed. (See chart for details) This is a 49-year-old male patient presenting to the ED today with uvula swelling that began at 11 AM this morning. Patient reports being at a [employer] yesterday with somebody was slipping ecstasy to people which he ingested. He took Benadryl at 11 am Patient was given Solu-Medrol, Pepcid in the ED, epinephrine. Symptoms have completely subsided. Discharged to home. Discouraged from doing drugs. Follow-up with PCP next week. Dragon Disclaimer Dragon Disclaimer This electronic medical record was generated, in whole or in part, using a voice recognition dictation system. Departure Departure Impression: Primary Impression: Allergic reaction Disposition: HOME, SELF-CARE Condition: STABLE Referrals: PADDY LINCOLN MD (PCP) follow up next week Patient Instructions: Angioedema Additional Instructions: You were evaluated in the emergency room for an allergic reaction. Please do not use any illicit drugs. Please return to the emergency room at any time symptoms worsen. . Scripts Famotidine (FAMOTIDINE) 20 Mg Tablet 20 MG PO DAILY, #4 TAB Prov: JOSIAH CRAIG APRN 06/05/19 Prednisone (PREDNISONE) 50 Mg Tablet 1 TAB PO DAILY, #4 TAB Prov: JOSIAH CRAIG APRN 06/05/19 Problem Qualifiers Primary Impression: Allergic reaction Encounter type: initial encounter Qualified Codes: T78.40XA - Allergy, unspecified, initial encounter JOSIAH CRAIG APRN Jun 05, 2019 17:11
[2019-06-05 18:30] VITALS: BP 131/73
[2019-06-05] MEDS ORDERED: PRED50TA PO (18:35)
[2019-06-05] MEDS ORDERED: FAMO20TA5 PO (18:35)
== END 2019-06-05 18:40 | disposition home or self-care (01) ==
LOC: ER 15:34
DX: R60.0 Localized edema (principal); T45.0X5A Adverse effect of antiallergic and antiemetic drugs, initial encounter; Y92.89 Other specified places as the place of occurrence of the external cause; J45.909 Unspecified asthma, uncomplicated; I11.0 Hypertensive heart disease with heart failure; I50.9 Heart failure, unspecified; E78.00 Pure hypercholesterolemia, unspecified; I25.2 Old myocardial infarction; I25.10 Atherosclerotic heart disease of native coronary artery without angina pectoris; F17.200 Nicotine dependence, unspecified, uncomplicated; Z90.89 Acquired absence of other organs; Z98.890 Other specified postprocedural states; E66.01 Morbid (severe) obesity due to excess calories; Z68.43 Body mass index [BMI] 50.0-59.9, adult; Z88.1 Allergy status to other antibiotic agents
CPT/HCPCS: 36415; 80053; 85025; 96372; 96374; 96375; 99285; J0171; J1200; J2930; J3490; J7030

== ENCOUNTER 2020-06-27 00:54 | Emergency (ER) | payer MEDICARE ==
[~2020-06-27 00:54] MED LIST changes: -ASPI-612 PO; +ASPI-886 PO; -LISI-334 PO; +LISI10TA16 PO; -LISI10TA2 PO; +LISI20TA18 PO; +PRED50TA PO
== END 2020-06-27 01:23 | disposition left against medical advice (07) ==
LOC: ER 00:54
DX: L02.91 Cutaneous abscess, unspecified (principal); Z53.21 Procedure and treatment not carried out due to patient leaving prior to being seen by health care provider

== ENCOUNTER 2020-10-17 16:58 | Emergency (ER) | payer MEDICARE ==
[~2020-10-17] VITALS: Ht 180.3 cm; Wt 194.0 kg
[~2020-10-17 16:58] MED LIST changes: +DOXY-181 PO; -DOXY100C14 PO
[2020-10-17] MEDS ORDERED: methylPREDNISolone SOD SUCC PF 125 MG/2 ML VIAL. IV ONE (19:30)
[2020-10-17] MEDS ORDERED: IPRATRPIUM/ALBUTEROL 0.5/2.5MG 3 ML NEBU. NEB ONE (19:30)
--- NOTE | 2020-10-17 21:01 | RAD ---
XR CHEST 1V 10/17/2020 7:32 PM INDICATION: Shortness of breath COMPARISON: 05/13/2019 TECHNIQUE: Portable frontal view of the chest is provided. FINDINGS: The cardiomediastinal silhouette is borderline enlarged. Findings are stable. Moderate pulmonary vasc ular congestion. Trace right pleural effusion. No pneumothorax. No suspicious osseous abnormality. IMPRESSION: Moderate pulmonary vascular congestion and trace right pleural effusion may represent congestive hear t failure. Electronically signed by: Arlene Palomo MD (10/17/2020 8:59 PM) [facility]
[2020-10-17 22:02] LABS: BASO # 0.1 x10^3/uL (0.0-0.2); BASO % 1 % (0-3); EOS % 1 % (0-3); HEMATOCRIT 39.9 % (39.0-53.0); HEMOGLOBIN 12.9 g/dL (13.0-17.5); LYMPH # 1.4 x10^3/uL (1.0-4.8); LYMPH % 21 % (24-48); MEAN CORPUSCULAR HEMOGLOBIN 27 pg (25-35); MEAN CORPUSCULAR HGB CONC 32 g/dL (31-37); MEAN CORPUSCULAR VOLUME 85 fL (79-100); MONO # 0.5 x10^3/uL (0.0-1.1); MONO % 8 % (0-9); NEUT # 4.5 x10^3/uL (1.8-7.7); NEUT % 69 % (31-73); PLATELET COUNT 172 x10^3/uL (140-400); RED CELL DISTRIBUTION WIDTH 16.2 % (11.5-14.5); WHITE BLOOD COUNT 6.6 x10^3/uL (4.0-11.0)
[2020-10-17 22:15] LABS: CALCIUM 8.3 mg/dL (8.5-10.1); CREATININE 1.1 mg/dL (0.7-1.3); GFR 86.4
[2020-10-17 22:20] LABS: ALBUMIN 3.4 g/dL (3.4-5.0); ALBUMIN/GLOBULIN RATIO 0.7 (1.0-1.7); MAGNESIUM 1.8 mg/dL (1.8-2.4); TOTAL BILIRUBIN 0.6 mg/dL (0.2-1.0); TOTAL PROTEIN 8.5 g/dL (6.4-8.2)
--- NOTE | 2020-10-17 22:36 | PHYS DOC ---
Past Medical History Past Medical History: Anemia, Asthma, CAD, CHF, Diabetes-Type II, High Cholesterol, Hypertension, [place], Other Additional Past Medical Histor: chronic lyphadema. morbid obesity (TIMBO WILSON APRN) Past Surgical History: Appendectomy, Other Additional Past Surgical Histo: cyst removal, knee arthroscope x3 (TIMBO WILSON APRN) Smoking Status: Former Smoker Alcohol Use: None Drug Use: None (TIMBO WILSON APRN) General Adult EDM: Chief Complaint: SHORTNESS OF BREATH HPI: HPI: Patient is a 50 year old male who presents to the emergency with a chief complaint of difficulty breathing for the past 3 days. Patient denies chest pain, denies fever chills, denies cough or congestion, states he does have diaphoretic episodes off-and-on. Patient states he is on a 1 to 3 L of oxygen all the time at home related to history of COPD and congestive heart failure, patient states he has had to stay on 3 L for the past 2 days in a row. Patient states he is coming to the emergency department because he would like to have a breathing treatment and a steroid and to be sent home. Patient denies having the COVID-19 virus vaccination, patient states he would like to get it but has not had the opportunity to do so. Patient denies any other physical complaints or physical concerns. (TIMBO WILSON APRN) Review of Systems: Review of Systems: 14 body systems of review of systems have been reviewed. See HPI for pertinent positives and negative responses, otherwise all other systems are negative, nonpertinent or noncontributory. Constitutional: Negative except as outlined in HPI above. Skin: Negative except as outlined in HPI above. Eyes: Negative except as outlined in HPI above. HENT: Negative except as outlined in HPI above. Respiratory: Negative except as outlined in HPI above. Cardiovascular: Negative except as outlined in HPI above. GI: Negative except as outlined in HPI above. : Negative except as outlined in HPI above. Musculoskeletal: Negative except as outlined in HPI above. Integument: Negative except as outlined in HPI above. Neurologic: Negative except as outlined in HPI above. Endocrine: Negative except as outlined in HPI above. Lymphatic: Negative except as outlined in HPI above. Psychiatric: Negative except as outlined in HPI above. (TIMBO WILSON APRN) Heart Score: C/O Chest Pain: No Risk Factors: Risk Factors: DM, Current or recent (<one month) smoker, HTN, HLP, family history of CAD, obesity. Risk Scores: Score 0 - 3: 2.5% MACE over next 6 weeks - Discharge Home Score 4 - 6: 20.3% MACE over next 6 weeks - Admit for Clinical Observation Score 7 - 10: 72.7% MACE over next 6 weeks - Early Invasive Strategies (TIMBO WILSON APRN) Current Medications: Current Medications Medications (Trade) Dose Ordered Sig/Linden Start Time Stop Time Status Last Admin Dose Admin Albuterol/ Ipratropium (Duoneb) 3 ml 1X ONCE 10/17/20 19:30 10/17/20 19:31 DC 10/17/20 20:30 3 ML Methylprednisolone Sodium Succinate (SOLU-Medrol 125MG VIAL) 125 mg 1X ONCE 10/17/20 19:30 10/17/20 19:31 DC (TIMBO WILSON APRN) Allergies: Allergies: Allergies Coded Allergies Type Severity Reaction Last Updated Verified amoxicillin Allergy Intermediate 05/13/19 Yes clavulanic acid Allergy Intermediate 05/13/19 Yes (TIMBO WILSON APRN) Physical Exam: PE: Constitutional: Well developed, well nourished, no acute distress, non-toxic appearance. Morbidly obese male in mild respiratory distress. HENT: Normocephalic, atraumatic, bilateral external ears normal, oropharynx moist, no oral exudates, nose normal. No drooling, no trismus, patient speaking in normal voice tones. Eyes: PERRLA, EOMI, conjunctiva normal, no discharge. Neck: Normal range of motion, no tenderness, supple, no stridor. No nuchal rigidity. Cardiovascular:Heart rate regular rhythm, no murmur. Lungs & Thorax: Diminished breath sounds bilateral bases, bronchial vesicular so unds throughout bilateral upper lung lobes. Abdomen: Bowel sounds normal, soft, no tenderness, no masses, no pulsatile masses. Abdomen round, morbidly obese. Skin: Warm, dry, no erythema, no rash. Back: No tenderness, no CVA tenderness. Extremities: No tenderness, no cyanosis, no clubbing, ROM intact, no edema. Neurologic: Alert and oriented X 3, normal motor function, normal sensory f unction, no focal deficits noted. Psychologic: Affect normal, judgement normal, mood normal. (TIMBO WILSON APRN) Current Patient Data: Labs: Laboratory Tests Test 10/17/20 20:50 10/17/20 21:50 SARS-CoV-2 Antigen (Rapid) Positive (NEGATIVE) *A White Blood Count 6.6 x10^3/uL (4.0-11.0) Red Blood Count 4.70 x10^6/uL (4.30-5.70) Hemoglobin 12.9 g/dL (13.0-17.5) L Hematocrit 39.9 % (39.0-53.0) Mean Corpuscular Volume 85 fL (79-100) Mean Corpuscular Hemoglobin 27 pg (25-35) Mean Corpuscular Hemoglobin Concent 32 g/dL (31-37) Red Cell Distribution Width 16.2 % (11.5-14.5) H Platelet Count 172 x10^3/uL (140-400) Neutrophils (%) (Auto) 69 % (31-73) Lymphocytes (%) (Auto) 21 % (24-48) L Monocytes (%) (Auto) 8 % (0-9) Eosinophils (%) (Auto) 1 % (0-3) Basophils (%) (Auto) 1 % (0-3) Neutrophils # (Auto) 4.5 x10^3/uL (1.8-7.7) Lymphocytes # (Auto) 1.4 x10^3/uL (1.0-4.8) Monocytes # (Auto) 0.5 x10^3/uL (0.0-1.1) Eosinophils # (Auto) 0.0 x10^3/uL (0.0-0.7) Basophils # (Auto) 0.1 x10^3/uL (0.0-0.2) D-Dimer (Nat) 0.94 ug/mlFEU (0.00-0.50) H Sodium Level 133 mmol/L (136-145) L Potassium Level 4.0 mmol/L (3.5-5.1) Chloride Level 97 mmol/L (98-107) L Carbon Dioxide Level 29 mmol/L (21-32) Anion Gap 7 (6-14) Blood Urea Nitrogen 19 mg/dL (8-26) Creatinine 1.1 mg/dL (0.7-1.3) Estimated GFR (Cockcroft-Gault) 86.4 BUN/Creatinine Ratio 17 (6-20) Glucose Level 128 mg/dL (70-99) H Lactic Acid Level 0.9 mmol/L (0.4-2.0) Calcium Level 8.3 mg/dL (8.5-10.1) L Phosphorus Level 3.0 mg/dL (2.6-4.7) Magnesium Level 1.8 mg/dL (1.8-2.4) Total Bilirubin 0.6 mg/dL (0.2-1.0) Aspartate Amino Transferase (AST) 62 U/L (15-37) H Alanine Aminotransferase (ALT) 70 U/L (16-63) H Alkaline Phosphatase 157 U/L (46-116) H Troponin I Quantitative 0.023 ng/mL (0.000-0.055) Total Protein 8.5 g/dL (6.4-8.2) H Albumin 3.4 g/dL (3.4-5.0) Albumin/Globulin Ratio 0.7 (1.0-1.7) L Laboratory Tests 10/17/20 21:50 Laboratory Tests 10/17/20 21:50 Vital Signs: Vital Signs Date Time Temp Pulse Resp B/P (MAP) Pulse Ox O2 Delivery O2 Flow Rate FiO2 10/17/20 20:31 88 Nasal Cannula 2.0 10/17/20 20:22 94 32 147/83 (104) 10/17/20 19:00 99.9 99.9 (TIMBO WILSON APRN) EKG: EKG: EKG performed at 1843 by ED nursing staff shows a normal sinus rhythm with left atrial abnormality along with left axis deviation, NM interval 0.106, QTc interval 0.490, no acute STEMI, no ACS, no acute ischemia appreciated, EKG interpreted by ED attending physician Dr. Davis. (TIMBO WILSON APRN) Radiology/Procedures: Radiology/Procedures: PATIENT: GILBERTO SANFORD ACCOUNT: [id number] : 1970 LOCATION: ER AGE: 50 SEX: M EXAM STATUS: REG ER ORD. PHYSICIAN: TIMBO WILSON APRN REASON: short of breath PROCEDURE: CHEST AP ONLY XR CHEST 1V 10/17/2020 7:32 PM INDICATION: Shortness of breath COMPARISON: 05/13/2019 TECHNIQUE: Portable frontal view of the chest is provided. FINDINGS: The cardiomediastinal silhouette is borderline enlarged. Findings are stable. Moderate pulmonary vascular congestion. Trace right pleural effusion. No pneumothorax. No suspicious osseous abnormality. IMPRESSION: Moderate pulmonary vascular congestion and trace right pleural effusion may represent congestive heart failure. Electronically signed by: Peyton Durán MD (10/17/2020 8:59 PM) [facility] DICTATED and SIGNED BY: PEYTON DURÁN MD DATE: 10/17/[id number] 0 (TIMBO WILSON APRN) Course & Med Decision Making: Course & Med Decision Making Pertinent Labs and Imaging studies reviewed. (See chart for details) 50-year-old male, vital signs reviewed, presents emergency department with complaint of difficulty breathing for the past 3 days. Patient has a significant history of CHF and COPD, stating he quit smoking 2 days ago, but continues to deny EtOH and illicit drug use. Concerning for CHF exacerbation versus viral component a cardiorespiratory work-up was performed along with COVID-19 testing. We will treat with DuoNeb, 125 Solu-Medrol pending lab results. Patient's rapid Covid tested positive, discussed this with patient, discussed admission to the hospital, patient states he has not received his Solu-Medrol yet, states he does not think he wants to be placed in the hospital, discussed with patient tube please wait for serum lab results to complete before deciding whether or not he would like to go home. Patient was amenable to this plan. ED nursing staff had great difficulties obtaining IV access and lab draw for patient, after several hours of trying, a 18-gauge was placed by myself and left AC, labs were drawn and sent for study. Chest x-ray concerning for CHF exacerbation, possible pneumonia infectious process, serum labs concerning for CHF exacerbation, patient's D-dimer was elevated, discussed with patient need for CT angio chest to rule out pulmonary emboli, patient refused this test. Is continuing to refuse hospital admission, had an extensive discussion with patient regarding the risks of leaving AMA incl uding but not limited to , permanent disability, and worsening condition. Patient has acknowledged the risks and agreed to take full responsibility. Patient has remained alert and oriented x4 throughout emergency department stay, remains nontoxic in appearance, has full medical decision-making capability when notified by the patient's ED nurse that the patient wishes to leave AGAINST MEDICAL ADVICE. The patient and I had an extensive discussion regarding the risks of leaving AMA including but not limited to , permanent disability, and worsening condition. Also had an extensive discussion with the patient regarding the benefits of excepting admission and transfer which include p romotion of health and wellness, and ongoing treatment of disease processes. The patient acknowledged the risks and benefits and agreed to take full responsibility of leaving AGAINST MEDICAL ADVICE. The patient was alert and oriented x4 and had full medical decision-making capability when AMA forms were signed. (TIMBO WILSON APRN) Course & Med Decision Making Patients Care and treatment plan provided by ER Nurse Practitioner. I was available for consult. Patient's chart reviewed. (FRANCA DAVIS DO) Dragon Disclaimer: Dragon Disclaimer: This electronic medical record was generated, in whole or in part, using a voice recognition dictation system. (TIMBO WILSON APRN) Departure Departure Impression: Primary Impression: Lab test positive for detection of COVID-19 virus Additional Impressions: CHF (congestive heart failure) Qualified Codes: I50.9 - Heart failure, unspecified COPD exacerbation Shortness of breath Respiratory distress Hyponatremia Hypocalcemia Atypical pneumonia Abnormal chest x-ray Disposition: LEFT AGAINST MEDICAL ADVICE Condition: GUARDED Referrals: PADDY LINCOLN MD (PCP) Additional Instructions: You were seen today in the emergency department for shortness of breath for the past 3 days. Your COVID-19 test came back positive today. You have abnormal labs and an abnormal chest x-ray suggestive of congestive heart failure, however there may be an underlying atypical pneumonia related to your COVID-19 virus positive test and you are short of breath. You were given an antibiotic called Zithromax and an intravenous steroid called Solu-Medrol 125 mg in the ED today. I have started you on an antibiotic called Zithromax and I will prescribe you more to take home please take as directed, I have also prescribing you an oral steroid please take as directed. I have recommended admission to the hospital for ongoing evaluation and close monitoring related to your underlying comorbidities, however you have refused my admission offer and decided to leave AGAINST MEDICAL ADVICE. I fear your condition may worsen and you may or s uffer from a permanent disability. Please return immediately to the emergency department for worsening symptoms or other concerns. It was a pleasure taking care of you in the emergency department today and I thank you for allowing me to participate in your emergency healthcare needs. Patient does not wish to proceed with medical care recommended by Timbo BUENO. Patient given information related to possible complications, up to and including , which could occur as a result of leaving the hospital at this time. Patient verbalizes understanding of risks involved due to leaving against medical advice. Patient has signed AMA form. You have been tested for or diagnosed with COVID-19. It is an infection caused by a new type of coronavirus. COVID-19 will cause cold-like or mild flu symptoms in most. It can cause more severe symptoms like problems breathing in some. There is no treatment for COVID-19. The body will clear the infection over time. Self-care will help to ease discomfort. Steps to Take: Self-Care Rest as needed. Healthy habits may help you feel better. Steps include: Choose healthy foods including fruits and vegetables. Drink water throughout the day. Get plenty of sleep each night. If you smoke, try to quit. It may ease breathing. Avoid alcohol. Keep Others Healthy The virus can spread to others. Droplets are released every time you sneeze or cough. The droplets can get into the mouth, nose, or eyes of people near you and lead to infection. To lower the chances of spreading COVID-19 to others: Stay at home until your doctor has said it is safe to leave. If you tested positive this will mean staying isolated until both of the following are true: At least 7 days have passed since the start of illness. You are free of fever for at least 72 hours without the use of medicine. During this time: - Avoid public areas, events, or transportation. Do not return to work or school until your doctor has said it is safe to do so. - Call ahead if you need to go to a medical center. Let them know you may have COVID-19. It will help them guide you where to go. They may also ask you to wear a facemask when you come to the office. - If you call for emergency medical services, let them know you may have COVID- 19. While at home: - Try to avoid close contact with others. Stay about 6 feet away. - If possible, spend most of your time in a separate room from others. - Use a face mask if you will be in close contact with others such as sharing a room or vehicle. - Have someone wipe down common surfaces in the home. Use household size maker every day on areas like doorknobs, counters, or sinks. - Cough or sneeze into a tissue. Throw the tissue away right after use. If a tissue is not available, cough or sneeze into your elbow. - Wash your hands often. Wash them after sneezing or coughing. Use soap and water and wash for at least 20 seconds. Alcohol based hand cleaner and dyer can be used if soap and water is not available. - Do not prepare food for others. Avoid sharing personal items like forks, spoons, or toothbrushes. - Avoid close contact with pets while you are sick. There is no evidence of the virus passing to pets. This is a safety step until more is known about this virus. Isolation can be frustrating. Social interaction can help. Keep in touch with friends and family through phone and tech options. You can still interact with others in your home, just keep a safe distance of about 6 feet. Follow-up: Your doctors office will check in with you to see if there are any changes in your health. You may be asked to keep track of symptoms to share with them. They will also let you know when you are clear to be in public again. Problems to Look Out For: Contact your doctor if your recovery is not going as you expect. Get emergency care if you have problems such as: - Trouble breathing - Nonstop chest pain or pressure - Changes in awareness, confusion, or problems waking - Lips or face have bluish color - Worsening of symptoms If you think you have an emergency, call for emergency medical services right away. [facility] Azithromycin (AZITHROMYCIN TABLET) 250 Mg Tablet 1 PKG PO UD for ATYPICAL PNEUMONIA for 5 Days, #6 TAB 1 Refill 2 the first day followed by 1 for days 2-5 Prov: TIMBO WILSON APRN 10/17/20 Prednisone (PREDNISONE) 50 Mg Tablet 1 TAB PO DAILY for COPD EXACERBATION, #5 TAB 0 Refills Prov: TIBMO WILSON APRN 10/17/20 TIMBO WILSON APRN Oct 17, 2020 22:36 FRANCA DAVIS DO Oct 19, 2020 03:53
[2020-10-17 23:17] VITALS: BP 142/86
[2020-10-17] MEDS ORDERED: AZITHROMYCIN 250 MG TABLET. PO ONE (23:30)
[2020-10-17] MEDS ORDERED: AZIT250T6 PO (23:32)
[2020-10-17] MEDS ORDERED: PRED50TA PO (23:32)
[2020-10-17] MEDS ORDERED: methylPREDNISolone SOD SUCC PF 125 MG/2 ML VIAL. ONE (23:34)
--- NOTE | 2020-10-18 06:12 | EKG ---
[facility] [address] [place] [address] Test Date: 2020-10-17 Test Time: 18:43:49 Pat Name: GILBERTO SANFORD Department: Room: Gender: M Jet Wiper: : 1970 Requested By: SKIP WILSON Order Number: [id number] Reading MD: Measurements Intervals [place] Rate: 98 P: -36 [place]: 106 QRS: -43 QRSD: 118 T: 75 QT: 382 QTc: 490 Interpretive Statements SINUS RHYTHM LEFT ATRIAL ABNORMALITY ABNORMAL LEFT AXIS DEVIATION QRS(T) CONTOUR ABNORMALITY CANNOT RULE OUT ANTEROSEPTAL MYOCARDIAL DAMAGE T ABNORMALITY IN HIGH LATERAL LEADS PROLONGED QT ABNORMAL ECG RI6.02 No previous ECG available for comparison
== END 2020-10-17 22:39 | disposition left against medical advice (07) ==
LOC: ER 16:58
DX: U07.1 COVID-19 (principal); J18.9 Pneumonia, unspecified organism; I11.0 Hypertensive heart disease with heart failure; I50.9 Heart failure, unspecified; J45.901 Unspecified asthma with (acute) exacerbation; E78.00 Pure hypercholesterolemia, unspecified; E87.1 Hypo-osmolality and hyponatremia; E83.51 Hypocalcemia; I25.10 Atherosclerotic heart disease of native coronary artery without angina pectoris; I25.2 Old myocardial infarction; Z87.891 Personal history of nicotine dependence; E66.01 Morbid (severe) obesity due to excess calories; Z68.43 Body mass index [BMI] 50.0-59.9, adult; Z88.1 Allergy status to other antibiotic agents; Z88.8 Allergy status to other drugs, medicaments and biological substances
CPT/HCPCS: 36415; 71045; 80053; 83605; 83735; 83880; 84100; 84484; 85025; 85379; 87040; 87426; 93005; 94640; 96374; 99285; J2930

== ENCOUNTER 2021-01-07 18:57 | Inpatient (IN) | payer MEDICARE ==
[~2021-01-07] VITALS: Ht 180.3 cm; Wt 158.0 kg
[~2021-01-07 18:57] MED LIST changes: +AZIT250T6 PO; +CYCL10TA19 PO; -CYCL10TA2 PO; -LISI1TAB23 PO; +LISI1TAB35 PO; -LISI2.5T PO; +LISI2.5T12 PO; +TIZA-75 PO; -TIZA4TAB2 PO
--- NOTE | 2021-01-07 19:57 | PHYS DOC ---
Past Medical History Past Medical History: Anemia, Asthma, CAD, CHF, Diabetes-Type II, High Ch olesterol, Hypertension, ND, Other Additional Past Medical Histor: COIVD Past Surgical History: Appendectomy, Knee Replacement, Other Additional Past Surgical Histo: ABD, TRACH 06 DEC 2020 Smoking Status: Former Smoker Alcohol Use: None Drug Use: None General Adult EDM: Chief Complaint: WEAKNESS/GENERALIZED HPI: HPI: Patient is a 50 male who was sent from [facility] to [facility] for rehab but [facility] diverted EMS ([facility]) to take patient to the ER here for medical clearance, COVID-19 cleara nce also. All information was received from EMS. [facility] did not call here to make report about the patient coming here. Patient said he had COVID-19 infection in October 17, 2020. He was coded three times, had respiratory failure. He would require tracheostomy for airway support. He said he was at [facility] for rehab. They sent him to [facility] to stay there two days ago. However, patient said the assisted would not care for him because of his trach....so they sent him back to [facility]. Patient denies any chest pain, no abdominal pain, no cough, no fever. Patient denies any headache. Patient denies any trouble breathing. Patient said he just feels weak because he has been sick for so long. Review of Systems: Review of Systems: Constitutional: Denies fever or chills. [] Eyes: Denies change in visual acuity. [] HENT: Denies nasal congestion or sore throat. [] Respiratory: Denies cough or shortness of breath. [] Cardiovascular: Denies chest pain or edema. [] GI: Denies abdominal pain, nausea, vomiting, bloody stools or diarrhea. [] : Denies dysuria. [] Musculoskeletal: Denies back pain or joint pain. [] Integument: Denies rash. [] Neurologic: Denies headache, focal weakness or sensory changes. Positive for generalized weakness. Endocrine: Denies polyuria or polydipsia. [] Lymphatic: Denies swollen glands. [] Psychiatric: Denies depression or anxiety. [] Heart Score: C/O Chest Pain: N/A Risk Factors: Risk Factors: DM, Current or recent (<one month) smoker, HTN, HLP, family history of CAD, obesity. Risk Scores: Score 0 - 3: 2.5% MACE over next 6 weeks - Discharge Home Score 4 - 6: 20.3% MACE over next 6 weeks - Admit for Clinical Observation Score 7 - 10: 72.7% MACE over next 6 weeks - Early Invasive Strategies Allergies: Allergies: Allergies Coded Allergies Type Severity Reaction Last Updated Verified amoxicillin Allergy Intermediate 05/13/19 Yes clavulanic acid Allergy Intermediate 05/13/19 Yes Physical Exam: PE: Constitutional: Well developed, well nourished, no acute distress, non-toxic appearance. Morbidly obese HENT: Normocephalic, atraumatic, bilateral external ears normal, oropharynx moist, no oral exudates, nose normal. [] Eyes: PERRLA, EOMI, conjunctiva normal, no discharge. [] Neck: Normal range of motion, no tenderness, supple, no stridor. [] Cardiovascular:Heart rate regular rhythm, no murmur [] Lungs & Thorax: Bilateral breath sounds with expiratory wheezing . TRACH IN PLACE. Abdomen: Bowel sounds normal, soft, no tenderness, no masses, no pulsatile masses. [] Skin: Warm, dry, no erythema, no rash. [] Back: No tenderness, no CVA tenderness. [] Extremities: No tenderness, no cyanosis, no clubbing, ROM intact, no edema. [] Neurologic: Alert and oriented X 3, normal motor function, normal sensory function, no focal deficits noted. [] Psychologic: Affect normal, judgement normal, mood normal. [] Current Patient Data: Labs: Laboratory Tests Test 01/07/21 19:50 01/07/21 20:00 SARS-CoV-2 Antigen (Rapid) Negative White Blood Count 8.2 x10^3/uL Red Blood Count 3.56 x10^6/uL Hemoglobin 10.1 g/dL Hematocrit 31.0 % Mean Corpuscular Volume 87 fL Mean Corpuscular Hemoglobin 28 pg Mean Corpuscular Hemoglobin Concent 33 g/dL Red Cell Distribution Width 16.0 % Platelet Count 311 x10^3/uL Neutrophils (%) (Auto) 54 % Lymphocytes (%) (Auto) 30 % Monocytes (%) (Auto) 9 % Eosinophils (%) (Auto) 7 % Basophils (%) (Auto) 1 % Neutrophils # (Auto) 4.4 x10^3/uL Lymphocytes # (Auto) 2.4 x10^3/uL Monocytes # (Auto) 0.7 x10^3/uL Eosinophils # (Auto) 0.6 x10^3/uL Basophils # (Auto) 0.1 x10^3/uL Sodium Level 133 mmol/L Potassium Level 5.2 mmol/L Chloride Level 99 mmol/L Carbon Dioxide Level 31 mmol/L Anion Gap 3 Blood Urea Nitrogen 25 mg/dL Creatinine 1.0 mg/dL Estimated GFR (Cockcroft-Gault) 96.5 BUN/Creatinine Ratio 25 Glucose Level 171 mg/dL Calcium Level 9.9 mg/dL Magnesium Level 2.4 mg/dL Total Bilirubin 0.4 mg/dL Aspartate Amino Transf (AST/SGOT) 93 U/L Alanine Aminotransferase (ALT/SGPT) 135 U/L Alkaline Phosphatase 753 U/L Troponin I Quantitative < 0.017 ng/mL ET-Prd-I-Type Natriuretic Peptide 947 pg/mL Total Protein 9.9 g/dL Albumin 2.9 g/dL Albumin/Globulin Ratio 0.4 Vital Signs: Vital Signs Date Time Temp Pulse Resp B/P (MAP) Pulse Ox O2 Delivery O2 Flow Rate FiO2 01/07/21 19:05 98.7 83 22 143/69 (93) 100 Tracheal Collar 4.0 98.7 EKG: EKG: EKG was done at 1946, heart rate of 81 BPM, NO STEMI. SINUS RHYTHM. Radiology/Procedures: Radiology/Procedures: [][facility] [address] [place], [place] [id number] IMAGING REPORT Signed PATIENT: GILBERTO SANFORD ACCOUNT: [id number] : 1970 LOCATION: ER AGE: 50 SEX: M EXAM STATUS: REG ER ORD. PHYSICIAN: PIERCE SMITH DO REASON: soa PROCEDURE: CHEST AP ONLY Exam performed: One view chest. Indication: Reason: soa / Spl. Instructions: / History: Date of Service: 01/07/2021 8:19 PM Comparison: None available. Single AP upright portable view chest findings: Cardiomediastinal silhouette is mildly enlarged, however stable. Mild airspace opacities are seen in the right midlung. The left lung is clear. There is no pleural effusion or pneumothorax.. The bony structures are normal. Impression: Mild airspace opacities right midlung likely infiltrates Electronically signed by: Sofia Warren MD (01/07/2021 9:02 PM) [facility] DICTATED and SIGNED BY: SOFIA WARREN MD DATE: 01/07/[id number] 0 Course & Med Decision Making: Course & Med Decision Making Pertinent Labs and Imaging studies reviewed. (See chart for details) Discussed with Dr. Beltrán, director of plant operations for Dr. Jean, will admit patient for observation, consult social work/case management for placement tomorrow. Dragon Disclaimer: Dragon Disclaimer: This electronic medical record was generated, in whole or in part, using a voice recognition dictation system. Departure Departure Impression: Primary Impression: Weakness Additional Impressions: COPD (chronic obstructive pulmonary disease) Tracheostomy in place Disposition: ADMITTED INPATIENT Admitting Physician: Paddy Jean Condition: STABLE Referrals: PADDY JEAN MD (PCP) PIERCE SMITH DO Jan 07, 2021 19:57
[2021-01-07 20:10] LABS: BASO # 0.1 x10^3/uL (0.0-0.2); BASO % 1 % (0-3); EOS # 0.6 x10^3/uL (0.0-0.7); EOS % 7 % (0-3); HEMOGLOBIN 10.1 g/dL (13.0-17.5); LYMPH # 2.4 x10^3/uL (1.0-4.8); LYMPH % 30 % (24-48); MEAN CORPUSCULAR HEMOGLOBIN 28 pg (25-35); MEAN CORPUSCULAR HGB CONC 33 g/dL (31-37); MEAN CORPUSCULAR VOLUME 87 fL (79-100); MONO # 0.7 x10^3/uL (0.0-1.1); MONO % 9 % (0-9); NEUT # 4.4 x10^3/uL (1.8-7.7); NEUT % 54 % (31-73); PLATELET COUNT 311 x10^3/uL (140-400); RED BLOOD COUNT 3.56 x10^6/uL (4.30-5.70); WHITE BLOOD COUNT 8.2 x10^3/uL (4.0-11.0)
--- NOTE | 2021-01-07 20:20 | EKG ---
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
[2021-01-07 20:21] LABS: CALCIUM 9.9 mg/dL (8.5-10.1); GFR 96.5; POTASSIUM 5.2 mmol/L (3.5-5.1)
[2021-01-07 20:27] LABS: ALBUMIN 2.9 g/dL (3.4-5.0); ALBUMIN/GLOBULIN RATIO 0.4 (1.0-1.7); MAGNESIUM 2.4 mg/dL (1.8-2.4); TOTAL BILIRUBIN 0.4 mg/dL (0.2-1.0); TOTAL PROTEIN 9.9 g/dL (6.4-8.2)
--- NOTE | 2021-01-07 21:05 | RAD ---
Exam performed: One view chest. Indication: Reason: soa / Spl. Instructions: / History: Date of Service: 01/07/2021 8:19 PM Comparison: None available. Single AP upright portable view chest findings: Cardiomediastinal silhouette is mildly enlarged, however stable. Mild airspace opacities are seen in the right midlung. The left lung is clear. There is no pleural effusion or pneumothorax.. The bony s tructures are normal. Impression: Mild airspace opacities right midlung likely infiltrates Electronically signed by: Sofia Warren MD (01/07/2021 9:02 PM) [facility]
[2021-01-07] MEDS ORDERED: ONDANSETRON PF 4 MG/2 ML VIAL. IVP PRN (21:30)
[2021-01-08] VITALS (7 sets, daily range): BP systolic 111–177; BP diastolic 70–90
[2021-01-08] MEDS ORDERED: C.DIFF MED SCREEN BY RX. MC ONE (02:45)
--- NOTE | 2021-01-08 03:16 | NUR ---
Pharmacy Medication Review S: Consulted for medication review re: C.diff Risk Assessment score of 6 O: GILBERTO SANFORD is a 50 year old with: Previous C.diff infection: No Previous hospitalization: Within 30 days Recent antibiotics: Within 30 days Use of gastric acid suppressor: Yes Transfer from [place]/[facility]: Yes Current antibiotic regimen: NONE Current acid suppression regimen: FAMOTIDINE A: Patient has been identified as having risk factors for C.diff infection as noted above. P: ABX DE-ESCALATION RECOMMENDED: PT NOT ON ANTIBIOTICS PROBIOTIC ORDERED: N/A PPI CHANGED TO [id number]: N/A JULIAN MARC [facility], 01/08/21 [id number]
[2021-01-08] MEDS ORDERED: BUSP5TAB PO (07:36)
[2021-01-08] MEDS ORDERED: QUET100T4 PO (07:36)
[2021-01-08] MEDS ORDERED: MELA3TAB43 PO (07:36)
[2021-01-08] MEDS ORDERED: SENN-37 PO (07:36)
[2021-01-08] MEDS ORDERED: METO25TA4 PO (07:36)
[2021-01-08] MEDS ORDERED: PANT40TA77 PO (07:36)
[2021-01-08] MEDS ORDERED: OXYC15TA3 PO (07:36)
[2021-01-08] MEDS ORDERED: FLUT9.9S NS (07:36)
[2021-01-08] MEDS ORDERED: ISOS30TA68 PO (07:49)
[2021-01-08] MEDS ORDERED: INSU100I13 SQ (07:49)
[2021-01-08] MEDS ORDERED: DULO60CA7 PO (07:49)
[2021-01-08] MEDS ORDERED: GABA300C18 PO (07:49)
[2021-01-08] MEDS ORDERED: CLONAZEPAM1 MG PO (07:49)
[2021-01-08] MEDS ORDERED: HEPA1000 IJ (07:49)
[2021-01-08] MEDS ORDERED: GLUC1KIT IM (07:49)
[2021-01-08] MEDS ORDERED: MAGN400T48 PO (07:49)
[2021-01-08] MEDS ORDERED: FLU VACC QUAD 21-22 (6MOS+) PF 0.5 ML SYRINGE. VAX IM ONE (09:00)
[2021-01-08] MEDS: FLUTICASONE 50MCG/NASAL SPRAY 16GM BOTTLE. NS SCH (09:00)
[2021-01-08] MEDS ORDERED: ACETAMINOPHEN 325 MG TABLET. PO PRN (09:00)
[2021-01-08] MEDS ORDERED: NON FORMULARY ITEM (Glucagon,Human Recombinant (Glucagon Emergency Kit) 1 MG) IM SCH (09:00)
[2021-01-08] MEDS: SENNOSIDES/DOCUSATE 8.6/50MG TABLET. PO SCH ×2 (09:33→21:12)
[2021-01-08] MEDS: MAGNESIUM OXIDE 400 MG TABLET PO SCH ×2 (09:33→21:13)
[2021-01-08] MEDS: buPROPion XL 150 MG TAB.ER.24H. PO SCH (09:34)
[2021-01-08] MEDS: PANTOPRAZOLE 40 MG TABLET.DR. PO SCH (09:34)
[2021-01-08] MEDS: DULoxetine HCL 30 MG CAPSULE.DR PO SCH (09:34)
[2021-01-08] MEDS: GABAPENTIN 300 MG CAPSULE. PO SCH ×4 (09:34→21:13)
[2021-01-08] MEDS: QUEtiapine 100 MG TABLET. PO SCH ×3 (09:34→21:13)
[2021-01-08] MEDS: busPIRone 5 MG TABLET. PO SCH ×3 (09:34→21:12)
[2021-01-08] MEDS: ISOSORBIDE MONONITRATE ER 30 MG TAB.ER.24H PO SCH (09:35)
[2021-01-08] MEDS: METOPROLOL TART IMMED RELEASE 25 MG TABLET. PO SCH ×2 (09:35→21:13)
--- NOTE | 2021-01-08 10:15 | PDOC ---
Provider Note Date of Service: DATE: 01/08/21 TIME: 10:14 Provider Note H&P dictated #[id number] Justifications for Admission Other Justification PADDY LINCOLN MD Jan 08, 2021 10:15
--- NOTE | 2021-01-08 10:43 | HP ---
ADMIT DATE: 01/07/2021 HISTORY OF PRESENT ILLNESS: This 50-year-old male was noted to have COVID-19 pneumonia on 10/16/2020 and was initially admitted to [facility] on 10/20 and was intubated on 10/21. He was extubated on , but required reintubation. Subsequently, the patient was transferred to [facility] on 11/15/2020. At [facility], the patient was weaned off the ventilator, but continued to require tracheostomy tube. He has had multiple episodes of decannulation because of his acute metabolic encephalopathy that significantly improved but slowly over a period of time. The patient was treated for multiple medical problems including COVID-19 pneumonia; acute on chronic hypoxic respiratory failure; acute kidney injury, requiring hemodialysis, which he has not been receiving for several weeks as his renal function continued to improve. He has elevated LFTs. He has congestive heart failure, both systolic and diastolic with ejection fraction of 20-25%. He also had dysphagia and required PEG tube feeding and eventually his oral intake continued to improve and he does not require any tube feeding. Dr. Jalloh then removed the PEG tube on 12/20/2020. As the patient continued to improve, he was discharged from [facility] on 01/04/2021 to [facility]. The patient was sent out from the residential unit on the advice of the respiratory therapist to take care of him stating that they could not take care of him there. The patient could not be directly admitted to [facility] as it is an LTAC and the patient was admitted to [facility] for further management and transfer again. SYSTEMS REVIEW: At present time, the patient denies any dyspnea cold, cough, congestion, chest pains. He has avulsion and partial removal of the left foot with slight bleeding. The patient does not remember if he hurt himself in the last few days. This is a new finding. The patient denies any foot pain. Other systems reviewed and are negative. PAST MEDICAL HISTORY: 1. The patient has acute on chronic hypoxic respiratory failure secondary to COVID-19 infection, he is on trach shield with a PMV. 2. Hypertension, acute on chronic systolic and diastolic heart failure with ejection fraction of 20-30% and grade 3 diastolic dysfunction. 3. Diabetes mellitus with diabetic neuropathy; recent NURY with hemodialysis, now not requiring dialysis; morbid obesity; severe noncompliance; gastroparesis; history of drug abuse including cocaine abuse, alcoholism; gastroesophageal reflux disease; anemia; osteoarthritis of both knees; coronary artery disease, cardiac catheterization in 10/2011 and also on 08/11/2018. He also had PCP addiction for 6 years, now in remission; hyperlipidemia; gastroesophageal reflux disease; seasonal allergic rhinitis; history of recurrent skin infection with MRSA; sleep apnea; tear of medial meniscus of left knee; chronic smoking. PAST SURGICAL HISTORY: Includes cyst removal 2 from abdomen benign in the past, history of appendectomy, knee arthroscopy, cardiac catheterization, bilateral knee arthroscopy, tracheostomy tube placed on 11/06, PEG tube placed on 11/13 and then subsequently removed by Dr. Jalloh on 12/20/2020. FAMILY HISTORY: Reviewed and noncontributory. SOCIAL HISTORY: Smokes 1 pack per day for last 28 years, known history of alcoholism and drug abuse including PCP and cocaine in the past. MEDICATIONS: Reviewed and reconciled. ALLERGIES: THE PATIENT IS ALLERGIC TO AUGMENTIN AND SPIRONOLACTONE. PHYSICAL EXAMINATION: GENERAL: The patient is alert, oriented, not in acute distress. He has a tracheostomy tube that is capped with PMV and also is on trach shield. VITAL SIGNS: Temperature max 100.3 degrees Fahrenheit, pulse 102 per minute, respirations 18 per minute, blood pressure 155/78 mmHg. EYES: Pupils reactive to light. Conjunctivae pink. Sclerae white. HENT: Unremarkable. LUNGS: Decreased breath sounds at bases. CARDIOVASCULAR: S1, S2, regular. ABDOMEN: Soft, nontender. No guarding, no rigidity. Bowel sounds present. EXTREMITIES: No edema. The patient has slight bleeding and partial removal of the second toenail. CENTRAL NERVOUS SYSTEM: The patient has diabetic neuropathy, generalized weakness. Alert and oriented. No hallucinations. LABORATORY FINDINGS: Sodium 133, potassium 5.2, BUN 25, creatinine 1, glucose 171 and 148. AST 93, ALT 135, albumin 2.9. BNP is 947. Troponin less than 0.017. WBC count 8.2, hemoglobin 10.1. Chest x-ray: Mild airspace opacities, right mid lung, likely infiltrate. IMPRESSION: 1. Fever, etiology not clear. 2. Recent COVID-19 pneumonia. 3. Acute on chronic hypoxic respiratory failure, now on PMV with trach shield, weaned off ventilation. 4. Diabetes mellitus type 2 with neuropathy. 5. Trauma to left foot with partial avulsion of the left second toenail. 6. Congestive heart failure, both diastolic and systolic, currently chronic with ejection fraction of 20-30% and diastolic dysfunction. 7. Hypertension. 8. Anemia. 9. Recent acute kidney injury with chronic kidney disease. 10. Coronary artery disease. 11. Reflux esophagitis. 12. History of drug abuse and alcohol abuse in the past. 13. Bilateral knee osteoarthritis 14. Hyperlipidemia. 15. Severe noncompliance. 16. Super morbid obesity. 17. Anemia. 18. Recent acute metabolic encephalopathy. PLAN: Consult Dr. Harvey for pulmonary evaluation and management. Consult Dr. Duane Torres for Infectious Disease evaluation and because of the fever. The patient currently not on antibiotics. Discussed with social services technician consider placing him in a residential unit when possible. I will order urinalysis, urine culture and blood cultures. Monitor fever. For details, please refer to the orders. ANGELICA DR: Gian TID: [id number]
[2021-01-08] MEDS: INSULIN GLARGINE SYRINGE. SQ SCH ×2 (11:04→21:20)
[2021-01-08] MEDS: IPRATRPIUM/ALBUTEROL 0.5/2.5MG 3 ML NEBU. NEB SCH ×3 (11:29→21:03)
--- NOTE | 2021-01-08 12:04 | NUR ---
SS following for discharge planning. SS reviewed pt chart and discussed with pt RN. Pt is currently on Trach Collar at 5 liters. COVID19 negative on rapid test. Pt is COVID19 recovered from 10/2020. ID consulted. PT/OT ordered. PO diet. Pt was at [facility], ; fax [phone], and was then transferred for snf unit at [facility]. SS was notified that [facility] could not care for pt's trach and attempted to send him back to [facility] but [facility] was unable to accept a direct admit. Pt was admitted to [facility] at that time. SS discussed with Dr. Jean this morning. Dr. Jean requesting referral to [facility], ; fax [phone]. SS discussed with admissions at [facility]. SS was informed that PT/OT would need to evaluate prior to referral being sent. SS was also informed that pt will need a negative COVID19 PCR test. Pt's RN notified. COVID19 test requested. SS will continue to follow for discharge planning.
--- NOTE | 2021-01-08 12:21 | PDOC ---
PULMONARY PROGRESS NOTES DATE: 01/08/21 TIME: 12:20 Vitals Vital Signs Date Time Temp Pulse Resp B/P (MAP) Pulse Ox O2 Delivery O2 Flow Rate FiO2 01/08/21 11:27 96 Tracheal Collar 5.0 01/08/21 10:49 98.4 94 20 177/90 (119) 98.4 General: Alert HEENT: Other Lungs: Clear Cardiovascular: S1, S2 Abdomen: Soft, Non-tender Extremities: Other Labs Laboratory Tests Test 01/07/21 19:50 01/07/21 20:00 01/08/21 07:51 01/08/21 11:30 SARS-CoV-2 Antigen (Rapid) Negative (NEGATIVE) White Blood Count 8.2 x10^3/uL (4.0-11.0) Red Blood Count 3.56 x10^6/uL (4.30-5.70) Hemoglobin 10.1 g/dL (13.0-17.5) Hematocrit 31.0 % (39.0-53.0) Mean Corpuscular Volume 87 fL (79-100) Mean Corpuscular Hemoglobin 28 pg (25-35) Mean Corpuscular Hemoglobin Concent 33 g/dL (31-37) Red Cell Distribution Width 16.0 % (11.5-14.5) Platelet Count 311 x10^3/uL (140-400) Neutrophils (%) (Auto) 54 % (31-73) Lymphocytes (%) (Auto) 30 % (24-48) Monocytes (%) (Auto) 9 % (0-9) Eosinophils (%) (Auto) 7 % (0-3) Basophils (%) (Auto) 1 % (0-3) Neutrophils # (Auto) 4.4 x10^3/uL (1.8-7.7) Lymphocytes # (Auto) 2.4 x10^3/uL (1.0-4.8) Monocytes # (Auto) 0.7 x10^3/uL (0.0-1.1) Eosinophils # (Auto) 0.6 x10^3/uL (0.0-0.7) Basophils # (Auto) 0.1 x10^3/uL (0.0-0.2) Sodium Level 133 mmol/L (136-145) Potassium Level 5.2 mmol/L (3.5-5.1) Chloride Level 99 mmol/L (98-107) Carbon Dioxide Level 31 mmol/L (21-32) Anion Gap 3 (6-14) Blood Urea Nitrogen 25 mg/dL (8-26) Creatinine 1.0 mg/dL (0.7-1.3) Estimated GFR (Cockcroft-Gault) 96.5 BUN/Creatinine Ratio 25 (6-20) Glucose Level 171 mg/dL (70-99) Calcium Level 9.9 mg/dL (8.5-10.1) Magnesium Level 2.4 mg/dL (1.8-2.4) Total Bilirubin 0.4 mg/dL (0.2-1.0) Aspartate Amino Transf (AST/SGOT) 93 U/L (15-37) Alanine Aminotransferase (ALT/SGPT) 135 U/L (16-63) Alkaline Phosphatase 753 U/L (46-116) Troponin I Quantitative < 0.017 ng/mL (0.000-0.055) BV-Hpb-S-Type Natriuretic Peptide 947 pg/mL (0-124) Total Protein 9.9 g/dL (6.4-8.2) Albumin 2.9 g/dL (3.4-5.0) Albumin/Globulin Ratio 0.4 (1.0-1.7) Glucose (Fingerstick) 148 mg/dL (70-99) 156 mg/dL (70-99) Laboratory Tests Test 01/07/21 19:50 01/07/21 20:00 01/08/21 07:51 01/08/21 11:30 SARS-CoV-2 Antigen (Rapid) Negative (NEGATIVE) White Blood Count 8.2 x10^3/uL (4.0-11.0) Red Blood Count 3.56 x10^6/uL (4.30-5.70) Hemoglobin 10.1 g/dL (13.0-17.5) Hematocrit 31.0 % (39.0-53.0) Mean Corpuscular Volume 87 fL (79-100) Mean Corpuscular Hemoglobin 28 pg (25-35) Mean Corpuscular Hemoglobin Concent 33 g/dL (31-37) Red Cell Distribution Width 16.0 % (11.5-14.5) Platelet Count 311 x10^3/uL (140-400) Neutrophils (%) (Auto) 54 % (31-73) Lymphocytes (%) (Auto) 30 % (24-48) Monocytes (%) (Auto) 9 % (0-9) Eosinophils (%) (Auto) 7 % (0-3) Basophils (%) (Auto) 1 % (0-3) Neutrophils # (Auto) 4.4 x10^3/uL (1.8-7.7) Lymphocytes # (Auto) 2.4 x10^3/uL (1.0-4.8) Monocytes # (Auto) 0.7 x10^3/uL (0.0-1.1) Eosinophils # (Auto) 0.6 x10^3/uL (0.0-0.7) Basophils # (Auto) 0.1 x10^3/uL (0.0-0.2) Sodium Level 133 mmol/L (136-145) Potassium Level 5.2 mmol/L (3.5-5.1) Chloride Level 99 mmol/L (98-107) Carbon Dioxide Level 31 mmol/L (21-32) Anion Gap 3 (6-14) Blood Urea Nitrogen 25 mg/dL (8-26) Creatinine 1.0 mg/dL (0.7-1.3) Estimated GFR (Cockcroft-Gault) 96.5 BUN/Creatinine Ratio 25 (6-20) Glucose Level 171 mg/dL (70-99) Calcium Level 9.9 mg/dL (8.5-10.1) Magnesium Level 2.4 mg/dL (1.8-2.4) Total Bilirubin 0.4 mg/dL (0.2-1.0) Aspartate Amino Transf (AST/SGOT) 93 U/L (15-37) Alanine Aminotransferase (ALT/SGPT) 135 U/L (16-63) Alkaline Phosphatase 753 U/L (46-116) Troponin I Quantitative < 0.017 ng/mL (0.000-0.055) GB-Ivs-V-Type Natriuretic Peptide 947 pg/mL (0-124) Total Protein 9.9 g/dL (6.4-8.2) Albumin 2.9 g/dL (3.4-5.0) Albumin/Globulin Ratio 0.4 (1.0-1.7) Glucose (Fingerstick) 148 mg/dL (70-99) 156 mg/dL (70-99) Medications Active Scripts Medications Dose Route/Sig Max Daily Dose Days Date Category Glucagon Emergency Kit (Glucagon,Human Recombinant) 1 Mg Kit 1 Mg IM LOW BLOOD SUGAR 01/08/21 Reported Gabapentin (Gabapentin) 300 Mg Capsule 300 Mg PO QID 01/08/21 Reported Cymbalta (Duloxetine Hcl) 60 Mg Capsule.dr 1 Cap PO DAILY 01/08/21 Reported Heparin 2,000 Unit/2 Ml Vial (Heparin Sodium,Porcine/Pf) 1,000 Unit/1 Ml Vial 5,000 Unit IJ Q8HRS 01/08/21 Reported Isosorbide Mononitrate Er (Isosorbide Mononitrate) 30 Mg Tab.er.24h 1 Tab PO DAILY 01/08/21 Reported Clonazepam 1 Mg Tablet 0.5 Mg PO PRN BID PRN 01/08/21 Reported Magnesium Oxide 400 Mg Tablet 2 Tab PO BID 01/08/21 Reported Lantus Solostar (Insulin Glargine,Hum.rec.anlog) 100 Unit/1 Ml Insuln.pen 34 Unit SQ BID 01/08/21 Reported Melatonin 3 Mg Tab.rapdis 2 Tab PO QHS 30 01/08/21 Reported Oxycodone Hcl Immed.release (Oxycodone Hcl) 15 Mg Tablet 15 Mg PO PRN Q6HRS PRN 01/08/21 Reported Flonase Allergy Relief (Fluticasone Propionate) 9.9 Ml [place].susp 2 Sprays NS DAILY 01/08/21 Reported Seroquel (Quetiapine Fumarate) 100 Mg Tablet 100 Mg PO TID 01/08/21 Reported Protonix (Pantoprazole Sodium) 40 Mg Tablet.dr 40 Mg PO DAILYAC 01/08/21 Reported Buspirone Hcl 5 Mg Tablet 1 Tab PO TID 01/08/21 Reported Senokot-S Tablet (Sennosides/Docusate Sodium) 1 Each Tablet 2 Tab PO BID 30 01/08/21 Reported Metoprolol Tartrate 25 Mg Tablet 1 Tab PO BID 01/08/21 Reported Wellbutrin Xl (Bupropion Hcl) 300 Mg Tab.er.24h 1 Tab PO DAILY 01/19/18 Rx Duoneb 0.5-3(2.5) Mg/3 Ml (Albuterol/Ipratropium) 3 Ml Ampul.neb 3 Ml NEB RTQID 30 01/19/18 Rx Singulair Tablet (Montelukast Sodium) 10 Mg Tablet 10 Mg PO HS 01/15/18 Reported Aspirin Ec (Aspirin) 81 Mg Tablet. 81 Mg PO DAILYWBKFT 04/04/17 Rx Impression . full note dictated A/C RESP FAILURE CONTINUE SAME FOR NOW WILL CHECK ABG AND NOCT DESAT STUDY PHILIP CABALLERO MD Jan 08, 2021 12:21
[2021-01-08 12:22] LABS: BASE EXCESS ABG 3 mmol/L (-3-3); HCO3 ABG 28 mmol/L (21-28); PCO2 ABG 48 mmHg (35-46); PO2 ABG 140 mmHg (75-108); SAT O2 ABG 99 % (92-99)
[2021-01-08 12:24] LABS: FIO2 ABG 40
--- NOTE | 2021-01-08 12:37 | CONS ---
DATE OF CONSULTATION: 01/08/2021 ATTENDING PHYSICIAN: Kirby Jean MD REASON FOR CONSULTATION: The patient is seen in pulmonary consultation at the request of Dr. Jean for acute on chronic respiratory failure, status post trach. HISTORY OF PRESENT ILLNESS: The patient is a 50-year-old that was noted to have COVID-19 back on the 16 of October, was initially admitted at [facility], was intubated on the , was extubated on the . Subsequently, he underwent tracheotomy. The patient was transferred to [facility] on the 15 of November. He was weaned off mechanical ventilation. But continued to require tracheostomy tube. He had multiple episodes of decannulation because of his acute metabolic encephalopathy, significantly. The patient was treated for COVID-19 respiratory failure; acute kidney injury, requiring hemodialysis. Eventually, his renal failure improved. He also was treated for congestive heart failure. He does have an ejection fraction 20-25%. He subsequently underwent a PEG tube. He was discharged from [facility] to [facility] Shelter Unit. He was sent out from the senior living unit on the advice of the respiratory therapist who was concerned about his trach. The patient was then transferred to [facility] Emergency Room for admission. He is currently being admitted. I was asked to see him in consultation. His chest x-ray was reviewed. There was some mild airspace disease, mostly in the right middle lung. The patient is awake, alert. He has a Passy-Welch valve. He has a cough, mostly nonproductive. His white count was normal. Serology rapid test for COVID was negative. His electrolytes were deranged. His BUN is 25, creatinine was 1.0. PAST MEDICAL HISTORY: As indicated above, chronic respiratory failure secondary to COVID-19. He is status post trach. He is currently using Passy-Welch valve. There is a history of hypertension, chronic systolic heart failure, ejection fraction 25-30%. There is a history of diabetes with diabetic neuropathy. He recently had acute kidney injury, requiring hemodialysis, he is currently off of hemodialysis. There is also history of drug use, cocaine use, alcoholism, anemia, coronary artery disease, previous cardiac catheterization. There is a history of hyperlipidemia, gastroesophageal reflux. PAST SURGICAL HISTORY: Previous abdominal surgeries. Had cardiac catheterization, appendectomy. He is status post trach and PEG. He had his PEG placed on the 13 of November, removed on the 20 of December. SOCIAL HISTORY: He has a history of alcoholism, drug use and tobacco use. Apparently, he no longer is addict. ALLERGIES: TO AUGMENTIN AND SPIRONOLACTONE. REVIEW OF SYSTEMS: As indicated above, otherwise a 10-point system was reviewed and negative. PHYSICAL EXAMINATION: VITAL SIGNS: Stable. O2 saturation greater than 92%. GENERAL: The patient is awake, alert, having trach in place. He is able to talk. HEENT: Eyes: The sclerae were nonicteric. NECK: Jugular venous distention could not be assessed secondary to body habitus. CHEST: Full expansion. LUNGS: Poor flow, no wheezes. CARDIOVASCULAR: Regular rate and rhythm with S1, S2. No S3. ABDOMEN: Soft, obese. EXTREMITIES: No clubbing, cyanosis. Some edema. NEUROLOGIC: The patient was weak, but able to lift his legs off the bed. LABORATORY DATA: Electrolytes were deranged. Sodium was low, potassium was elevated. AST and ALT were elevated. White count was normal, hemoglobin and hematocrit chronically low. Rapid test for COVID was negative. Chest x-ray revealed right mid lung infiltrate. IMPRESSION: 1. Acute on chronic respiratory failure, multifactorial. 2. Status post tracheostomy. 3. COVID-19 pneumonia, initially hospitalized on the 16 of October, complicated with respiratory failure requiring intubation. 4. Cardiomyopathy, ejection fraction 20-25%, chronic systolic heart failure. 5. Diabetes. 6. Hypertension. 7. Chronic anemia. 8. Chronic kidney disease. 9. Status post PEG, removed on the 20 of December. 10. History of polysubstance use. 11. Morbid obesity. PLAN: 1. Continue trach in place with Passy-Welch valve, will check nocturnal desat study. 2. Obtain additional information, apparently the patient is coded in the past, may require trach in place for a prolonged period of time. 3. Antibiotics per ID. 4. Aggressive PT and OT. 5. We will make further recommendations based upon additional diagnostic studies. DISCUSSION: At this juncture, I do not think it is safe to attempt decannulation. We will continue oxygen supplementation and Passy-Jaime valve. I do appreciate the privilege in sharing in the patient's care. DOLORES DR: Jessica TID: [id number]
[2021-01-08] MEDS: HEPARIN for SUB-Q USE 5,000 UNIT/ML VIAL. SQ SCH ×2 (13:52→21:53)
--- NOTE | 2021-01-08 15:38 | NUR ---
Wound/Ostomy Care Wound Type/Assessment: Patient seen per wound care consult. See wound assessment. Patient has DFU to left 2nd toe secondary to losing his toenail. Wound cleansed, assessed, measured, and pictured. The wound is minimal and appears pink and clean. Treatment Recommendations/Plan: Recommendations for xeroform gauze and cover with bandaid. Change every other day. Dressing applied. No other wounds noted. Education provided: Patient educated on dressing changes and POC, but patient is confused. Offloading surface/device: Patient encouraged to turn frequently. Recommended Referrals/Tests: N/A Discharge Recommendations for dressings: Continue current treatment until wound is healed or scabbed. Dressing change instructions left in room. Wound care will follow up on 01/16/21.
[2021-01-08] MEDS ORDERED: NON FORMULARY ITEM (Melatonin 2 TAB) PO SCH (21:00)
[2021-01-08] MEDS: MONTELUKAST SODIUM 10 MG TABLET. PO SCH (21:13)
--- NOTE | 2021-01-08 22:46 | NUR ---
Transferred to room 536 per VTluis'ayanna RN request. Report given to RASHAD Maloney.
[2021-01-09 03:37] VITALS: BP 106/64
[2021-01-09 07:00] VITALS: BP 125/69
[2021-01-09 07:10] LABS: BASO # 0.1 x10^3/uL (0.0-0.2); BASO % 1 % (0-3); EOS # 0.6 x10^3/uL (0.0-0.7); EOS % 7 % (0-3); HEMATOCRIT 29.9 % (39.0-53.0); HEMOGLOBIN 9.6 g/dL (13.0-17.5); LYMPH # 2.7 x10^3/uL (1.0-4.8); LYMPH % 29 % (24-48); MEAN CORPUSCULAR HEMOGLOBIN 28 pg (25-35); MEAN CORPUSCULAR HGB CONC 32 g/dL (31-37); MEAN CORPUSCULAR VOLUME 88 fL (79-100); MONO % 10 % (0-9); NEUT # 4.9 x10^3/uL (1.8-7.7); NEUT % 53 % (31-73); PLATELET COUNT 312 x10^3/uL (140-400); RED BLOOD COUNT 3.39 x10^6/uL (4.30-5.70); RED CELL DISTRIBUTION WIDTH 16.3 % (11.5-14.5); WHITE BLOOD COUNT 9.3 x10^3/uL (4.0-11.0)
[2021-01-09 07:22] LABS: CALCIUM 9.7 mg/dL (8.5-10.1); CREATININE 1.2 mg/dL (0.7-1.3); GFR 78.2; POTASSIUM 4.7 mmol/L (3.5-5.1)
[2021-01-09] MEDS: IPRATRPIUM/ALBUTEROL 0.5/2.5MG 3 ML NEBU. NEB SCH ×3 (07:41→20:17)
--- NOTE | 2021-01-09 08:48 | PDOC ---
PULMONARY PROGRESS NOTES DATE: 01/09/21 TIME: 08:47 Subjective Patient feels no differential Vitals Vital Signs Date Time Temp Pulse Resp B/P (MAP) Pulse Ox O2 Delivery O2 Flow Rate FiO2 01/09/21 07:43 95 Tracheal Collar 6.0 01/09/21 03:37 97.9 84 18 106/64 (78) 97.9 General: Alert HEENT: Other Lungs: Clear, Crackles Cardiovascular: S1, S2 Abdomen: Soft, Non-tender Neuro Exam: Alert Extremities: Other Skin: Warm Labs Laboratory Tests Test 01/07/21 19:50 01/07/21 20:00 01/08/21 07:51 01/08/21 11:30 SARS-CoV-2 RNA (MAIKOL) Negative (Negative) SARS-CoV-2 Antigen (Rapid) Negative (NEGATIVE) White Blood Count 8.2 x10^3/uL (4.0-11.0) Red Blood Count 3.56 x10^6/uL (4.30-5.70) Hemoglobin 10.1 g/dL (13.0-17.5) Hematocrit 31.0 % (39.0-53.0) Mean Corpuscular Volume 87 fL (79-100) Mean Corpuscular Hemoglobin 28 pg (25-35) Mean Corpuscular Hemoglobin Concent 33 g/dL (31-37) Red Cell Distribution Width 16.0 % (11.5-14.5) Platelet Count 311 x10^3/uL (140-400) Neutrophils (%) (Auto) 54 % (31-73) Lymphocytes (%) (Auto) 30 % (24-48) Monocytes (%) (Auto) 9 % (0-9) Eosinophils (%) (Auto) 7 % (0-3) Basophils (%) (Auto) 1 % (0-3) Neutrophils # (Auto) 4.4 x10^3/uL (1.8-7.7) Lymphocytes # (Auto) 2.4 x10^3/uL (1.0-4.8) Monocytes # (Auto) 0.7 x10^3/uL (0.0-1.1) Eosinophils # (Auto) 0.6 x10^3/uL (0.0-0.7) Basophils # (Auto) 0.1 x10^3/uL (0.0-0.2) Sodium Level 133 mmol/L (136-145) Potassium Level 5.2 mmol/L (3.5-5.1) Chloride Level 99 mmol/L (98-107) Carbon Dioxide Level 31 mmol/L (21-32) Anion Gap 3 (6-14) Blood Urea Nitrogen 25 mg/dL (8-26) Creatinine 1.0 mg/dL (0.7-1.3) Estimated GFR (Cockcroft-Gault) 96.5 BUN/Creatinine Ratio 25 (6-20) Glucose Level 171 mg/dL (70-99) Calcium Level 9.9 mg/dL (8.5-10.1) Magnesium Level 2.4 mg/dL (1.8-2.4) Total Bilirubin 0.4 mg/dL (0.2-1.0) Aspartate Amino Transf (AST/SGOT) 93 U/L (15-37) Alanine Aminotransferase (ALT/SGPT) 135 U/L (16-63) Alkaline Phosphatase 753 U/L (46-116) Troponin I Quantitative < 0.017 ng/mL (0.000-0.055) WX-Euk-N-Type Natriuretic Peptide 947 pg/mL (0-124) Total Protein 9.9 g/dL (6.4-8.2) Albumin 2.9 g/dL (3.4-5.0) Albumin/Globulin Ratio 0.4 (1.0-1.7) Glucose (Fingerstick) 148 mg/dL (70-99) 156 mg/dL (70-99) Test 01/08/21 12:15 01/08/21 16:19 01/08/21 20:33 01/09/21 05:55 O2 Saturation 99 % (92-99) Arterial Blood pH 7.38 (7.35-7.45) Arterial Blood pCO2 at Patient Temp 48 mmHg (35-46) Arterial Blood pO2 at Patient Temp 140 mmHg (75-108) Arterial Blood HCO3 28 mmol/L (21-28) Arterial Blood Base Excess 3 mmol/L (-3-3) FiO2 40 Glucose (Fingerstick) 156 mg/dL (70-99) 146 mg/dL (70-99) White Blood Count 9.3 x10^3/uL (4.0-11.0) Red Blood Count 3.39 x10^6/uL (4.30-5.70) Hemoglobin 9.6 g/dL (13.0-17.5) Hematocrit 29.9 % (39.0-53.0) Mean Corpuscular Volume 88 fL (79-100) Mean Corpuscular Hemoglobin 28 pg (25-35) Mean Corpuscular Hemoglobin Concent 32 g/dL (31-37) Red Cell Distribution Width 16.3 % (11.5-14.5) Platelet Count 312 x10^3/uL (140-400) Neutrophils (%) (Auto) 53 % (31-73) Lymphocytes (%) (Auto) 29 % (24-48) Monocytes (%) (Auto) 10 % (0-9) Eosinophils (%) (Auto) 7 % (0-3) Basophils (%) (Auto) 1 % (0-3) Neutrophils # (Auto) 4.9 x10^3/uL (1.8-7.7) Lymphocytes # (Auto) 2.7 x10^3/uL (1.0-4.8) Monocytes # (Auto) 1.0 x10^3/uL (0.0-1.1) Eosinophils # (Auto) 0.6 x10^3/uL (0.0-0.7) Basophils # (Auto) 0.1 x10^3/uL (0.0-0.2) Sodium Level 132 mmol/L (136-145) Potassium Level 4.7 mmol/L (3.5-5.1) Chloride Level 96 mmol/L (98-107) Carbon Dioxide Level 30 mmol/L (21-32) Anion Gap 6 (6-14) Blood Urea Nitrogen 23 mg/dL (8-26) Creatinine 1.2 mg/dL (0.7-1.3) Estimated GFR (Cockcroft-Gault) 78.2 Glucose Level 116 mg/dL (70-99) Calcium Level 9.7 mg/dL (8.5-10.1) Test 01/09/21 07:38 Glucose (Fingerstick) 137 mg/dL (70-99) Laboratory Tests Test 01/08/21 11:30 01/08/21 12:15 01/08/21 16:19 01/08/21 20:33 Glucose (Fingerstick) 156 mg/dL (70-99) 156 mg/dL (70-99) 146 mg/dL (70-99) O2 Saturation 99 % (92-99) Arterial Blood pH 7.38 (7.35-7.45) Arterial Blood pCO2 at Patient Temp 48 mmHg (35-46) Arterial Blood pO2 at Patient Temp 140 mmHg (75-108) Arterial Blood HCO3 28 mmol/L (21-28) Arterial Blood Base Excess 3 mmol/L (-3-3) FiO2 40 Test 01/09/21 05:55 01/09/21 07:38 White Blood Count 9.3 x10^3/uL (4.0-11.0) Red Blood Count 3.39 x10^6/uL (4.30-5.70) Hemoglobin 9.6 g/dL (13.0-17.5) Hematocrit 29.9 % (39.0-53.0) Mean Corpuscular Volume 88 fL (79-100) Mean Corpuscular Hemoglobin 28 pg (25-35) Mean Corpuscular Hemoglobin Concent 32 g/dL (31-37) Red Cell Distribution Width 16.3 % (11.5-14.5) Platelet Count 312 x10^3/uL (140-400) Neutrophils (%) (Auto) 53 % (31-73) Lymphocytes (%) (Auto) 29 % (24-48) Monocytes (%) (Auto) 10 % (0-9) Eosinophils (%) (Auto) 7 % (0-3) Basophils (%) (Auto) 1 % (0-3) Neutrophils # (Auto) 4.9 x10^3/uL (1.8-7.7) Lymphocytes # (Auto) 2.7 x10^3/uL (1.0-4.8) Monocytes # (Auto) 1.0 x10^3/uL (0.0-1.1) Eosinophils # (Auto) 0.6 x10^3/uL (0.0-0.7) Basophils # (Auto) 0.1 x10^3/uL (0.0-0.2) Sodium Level 132 mmol/L (136-145) Potassium Level 4.7 mmol/L (3.5-5.1) Chloride Level 96 mmol/L (98-107) Carbon Dioxide Level 30 mmol/L (21-32) Anion Gap 6 (6-14) Blood Urea Nitrogen 23 mg/dL (8-26) Creatinine 1.2 mg/dL (0.7-1.3) Estimated GFR (Cockcroft-Gault) 78.2 Glucose Level 116 mg/dL (70-99) Calcium Level 9.7 mg/dL (8.5-10.1) Glucose (Fingerstick) 137 mg/dL (70-99) Medications Active Scripts Medications Dose Route/Sig Max Daily Dose Days Date Category Glucagon Emergency Kit (Glucagon,Human Recombinant) 1 Mg Kit 1 Mg IM LOW BLOOD SUGAR 01/08/21 Reported Gabapentin (Gabapentin) 300 Mg Capsule 300 Mg PO QID 01/08/21 Reported Cymbalta (Duloxetine Hcl) 60 Mg Capsule.dr 1 Cap PO DAILY 01/08/21 Reported Heparin 2,000 Unit/2 Ml Vial (Heparin Sodium,Porcine/Pf) 1,000 Unit/1 Ml Vial 5,000 Unit IJ Q8HRS 01/08/21 Reported Isosorbide Mononitrate Er (Isosorbide Mononitrate) 30 Mg Tab.er.24h 1 Tab PO DAILY 01/08/21 Reported Clonazepam 1 Mg Tablet 0.5 Mg PO PRN BID PRN 01/08/21 Reported Magnesium Oxide 400 Mg Tablet 2 Tab PO BID 01/08/21 Reported Lantus Solostar (Insulin Glargine,Hum.rec.anlog) 100 Unit/1 Ml Insuln.pen 34 Unit SQ BID 01/08/21 Reported Melatonin 3 Mg Tab.rapdis 2 Tab PO QHS 30 01/08/21 Reported Oxycodone Hcl Immed.release (Oxycodone Hcl) 15 Mg Tablet 15 Mg PO PRN Q6HRS PRN 01/08/21 Reported Flonase Allergy Relief (Fluticasone Propionate) 9.9 Ml [place].susp 2 Sprays NS DAILY 01/08/21 Reported Seroquel (Quetiapine Fumarate) 100 Mg Tablet 100 Mg PO TID 01/08/21 Reported Protonix (Pantoprazole Sodium) 40 Mg Tablet.dr 40 Mg PO DAILYAC 01/08/21 Reported Buspirone Hcl 5 Mg Tablet 1 Tab PO TID 01/08/21 Reported Senokot-S Tablet (Sennosides/Docusate Sodium) 1 Each Tablet 2 Tab PO BID 30 01/08/21 Reported Metoprolol Tartrate 25 Mg Tablet 1 Tab PO BID 01/08/21 Reported Wellbutrin Xl (Bupropion Hcl) 300 Mg Tab.er.24h 1 Tab PO DAILY 01/19/18 Rx Duoneb 0.5-3(2.5) Mg/3 Ml (Albuterol/Ipratropium) 3 Ml Ampul.neb 3 Ml NEB RTQID 30 01/19/18 Rx Singulair Tablet (Montelukast Sodium) 10 Mg Tablet 10 Mg PO HS 01/15/18 Reported Aspirin Ec (Aspirin) 81 Mg Tablet. 81 Mg PO DAILYWBKFT 04/04/17 Rx Impression . IMPRESSION: 1. Acute on chronic respiratory failure, multifactorial. 2. Status post tracheostomy. 3. COVID-19 pneumonia, initially hospitalized on the 16 of October, complicated with respiratory failure requiring intubation. 4. Cardiomyopathy, ejection fraction 20-25%, chronic systolic heart failure. 5. Diabetes. 6. Hypertension. 7. Chronic anemia. 8. Chronic kidney disease. 9. Status post PEG, removed on the 20 of December. 10. History of polysubstance use. 11. Morbid obesity. Plan . Updated 01/[address] Jean, not safe to decannulate We will check nocturnal desat study Passy-Jaime valve Antibiotics per ID \ PLAN: 1. Continue trach in place with Passy-Jaime valve, will check nocturnal desat study. 2. Obtain additional information, apparently the patient is coded in the past, may require trach in place for a prolonged period of time. 3. Antibiotics per ID. 4. Aggressive PT and OT. 5. We will make further recommendations based upon additional diagnostic studies. DISCUSSION: At this juncture, I do not think it is safe to attempt decannulation. We will continue oxygen supplementation and Passy-Jaime valve. I do appreciate the privilege in sharing in the patient's care. PHILIP CABALLERO MD Jan 09, 2021 08:48
[2021-01-09] MEDS: GABAPENTIN 300 MG CAPSULE. PO SCH ×4 (09:50→21:34)
[2021-01-09] MEDS: MAGNESIUM OXIDE 400 MG TABLET PO SCH ×2 (09:50→21:33)
[2021-01-09] MEDS: busPIRone 5 MG TABLET. PO SCH ×3 (09:50→21:34)
[2021-01-09] MEDS: buPROPion XL 150 MG TAB.ER.24H. PO SCH (09:50)
[2021-01-09] MEDS: PANTOPRAZOLE 40 MG TABLET.DR. PO SCH (09:51)
[2021-01-09] MEDS: SENNOSIDES/DOCUSATE 8.6/50MG TABLET. PO SCH ×2 (09:51→21:44)
[2021-01-09] MEDS: ASPIRIN ENTERIC COATED 81 MG TABLET.DR. PO SCH (09:51)
[2021-01-09] MEDS: DULoxetine HCL 30 MG CAPSULE.DR PO SCH (09:51)
[2021-01-09] MEDS: ISOSORBIDE MONONITRATE ER 30 MG TAB.ER.24H PO SCH (09:51)
[2021-01-09] MEDS: FLUTICASONE 50MCG/NASAL SPRAY 16GM BOTTLE. NS SCH (10:00)
[2021-01-09] MEDS: METOPROLOL TART IMMED RELEASE 25 MG TABLET. PO SCH ×2 (10:00→21:00)
[2021-01-09] MEDS: INSULIN GLARGINE SYRINGE. SQ SCH ×2 (10:07→21:36)
[2021-01-09] MEDS: HEPARIN for SUB-Q USE 5,000 UNIT/ML VIAL. SQ SCH ×3 (10:07→21:35)
[2021-01-09] MEDS: QUEtiapine 100 MG TABLET. PO SCH ×3 (10:08→21:34)
[2021-01-09 11:00] VITALS: BP 127/73
--- NOTE | 2021-01-09 11:23 | CONS ---
DATE OF CONSULTATION: 01/09/2021 REFERRING PHYSICIAN: Dr. Jean. REASON FOR CONSULTATION: Low-grade fever. HISTORY OF PRESENT ILLNESS: A 50-year-old male who was transferred from [facility] to Critical access hospital, was brought to the ER on the advice of respiratory therapist to take care of him stating that they could not take care of him there for his trach. The patient was recently discharged from LT after he underwent prolonged hospitalization at [facility] for COVID-19, status post intubation, extubation and trach placement. The patient also had chronic hypoxic respiratory failure, NURY, requiring hemodialysis, which he received at [facility]. He also had congestive heart failure, dysphagia, PEG tube placement. Eventually, the patient is currently on oral intake and does not require any tube feedings. His PEG tube was removed by Dr. Jalloh on 12/20/2020. Upon presentation, the patient's fever was 98.7, later it was 100.3, now he is afebrile. White count was normal. Repeat COVID was negative. Creatinine was 1.2. BNP was 947. Troponin was normal. Chest x-ray revealed mild airspace opacities of right mid lung, likely infiltrate. The patient is currently not on any antibiotics. ID consultation has been requested for further evaluation and treatment. Today, the patient states he feels much better. He is alert, awake. His cough is mostly nonproductive. He denies any chest pain. Denies any fevers, headaches, sore throat, nausea, vomiting, diarrhea, abdominal pain or symptoms. He has a left second toenail, which came off while he hit against the bed accidentally. No drainage, no bleeding, no pain. PAST MEDICAL HISTORY: Chronic respiratory failure secondary to COVID-19, status post trach, hypertension, chronic systolic heart failure, diabetes, diabetic neuropathy, NURY, requiring hemodialysis, currently off, PEG tube placement taken off, history of cocaine use, alcoholism, anemia, coronary artery disease, hyperlipidemia, GERD, morbid obesity. PAST SURGICAL HISTORY: Reviewed. SOCIAL HISTORY: History of alcoholism, drug use, tobacco use. Currently, he is no longer using the above. ALLERGIES: AUGMENTIN AND SPIRONOLACTONE. REVIEW OF SYSTEMS: Negative except for above in HPI. PHYSICAL EXAMINATION: VITAL SIGNS: Temperature stable, oxygen saturation 95% on trach collar. GENERAL: Alert, oriented x 3 male, lying in bed comfortably, in no acute distress. HEENT: Normocephalic, atraumatic. Anicteric. NECK: Supple, no JVD. LUNGS: Clear bilaterally. No wheezing. No accessory muscle use. HEART: S1, S2. No gallops or murmurs. ABDOMEN: Soft, nontender, nondistended, no rebound or guarding. EXTREMITIES: Trace edema. No clubbing, no cyanosis. Left second toenail off, base is clean. No paronychia, no swelling, no redness, no warmth. NEUROLOGIC: Alert and oriented x 3, grossly nonfocal. PSYCHIATRIC: Calm and cooperative. LINES: None. LABORATORY DATA: WBC 9.3, hemoglobin 9.6, hematocrit 29.9, platelets 312. Sodium 133, potassium 5.0, chloride 99, bicarbonate 31, BUN 25, creatinine 1.0, glucose 148. BNP 947. SARS-COVID negative. MICROBIOLOGY: None. IMAGING: Chest x-ray as above. IMPRESSION: 1. Low-grade fever, resolved. 2. Acute on chronic respiratory failure, multifactorial. 3. Status post tracheostomy. 4. History of COVID-19 pneumonia with prolonged hospitalization, status post intubation, now on trach. 5. Cardiomyopathy with chronic systolic heart failure. 6. Diabetes with neuropathy. 7. Left second toenail removed, no infection. 8. Hypertension. 9. Chronic kidney disease. 10. Status post percutaneous endoscopic gastrostomy removed on 12/20. 11. Morbid obesity. 12. History of polysubstance abuse. 13. Anemia. RECOMMENDATIONS: 1. Monitor off antibiotics. 2. Maintain aspiration precaution. 3. Monitor labs and cultures. 4. Continue supportive care. 5. Continue local wound care as directed. 6. The patient could be discharged from ID standpoint. Discussed with Dr. Jean. Discussed with RN. Thank you, Dr. Jean, for consulting Infectious Disease to participate in this patient's care. If you have any questions, do not hesitate to contact me. ISABELL/NICOLE EISENBERG: Frankie TID: [id number] [facility]
--- NOTE | 2021-01-09 11:34 | PDOC ---
IM PROGRESS NOTES- Subjective Subjective No pain,dyspnea. Objective Vitals/I&O Vital Signs Date Time Temp Pulse Resp B/P (MAP) Pulse Ox O2 Delivery O2 Flow Rate FiO2 01/09/21 10:00 78 125/69 01/09/21 07:43 95 Tracheal Collar 6.0 01/09/21 07:00 98.3 18 98.3 I & O 01/08/21 01/08/21 01/09/21 15:00 23:00 07:00 Intake Total 350 ml 120 ml 0 ml Output Total 350 ml 650 ml Balance 0 ml -530 ml 0 ml Physical Exam Physical Exam General Appearance - alert and in no distress Chest - decreased breath sounds at bases Heart - S1 and S2 normal Abdomen - soft, non tender Neurological - alert and oriented Musculoskeletal - generalized weakness Extremities - no edema Labs Laboratory Tests Test 01/08/21 12:15 01/08/21 13:42 01/08/21 16:19 01/08/21 20:33 O2 Saturation 99 % (92-99) Arterial Blood pH 7.38 (7.35-7.45) Arterial Blood pCO2 at Patient Temp 48 mmHg (35-46) H Arterial Blood pO2 at Patient Temp 140 mmHg (75-108) H Arterial Blood HCO3 28 mmol/L (21-28) Arterial Blood Base Excess 3 mmol/L (-3-3) FiO2 40 SARS-CoV-2 RNA (MAIKOL) Negative (Negative) Glucose (Fingerstick) 156 mg/dL (70-99) H 146 mg/dL (70-99) H Test 01/09/21 05:55 01/09/21 07:38 White Blood Count 9.3 x10^3/uL (4.0-11.0) Red Blood Count 3.39 x10^6/uL (4.30-5.70) L Hemoglobin 9.6 g/dL (13.0-17.5) L Hematocrit 29.9 % (39.0-53.0) L Mean Corpuscular Volume 88 fL (79-100) Mean Corpuscular Hemoglobin 28 pg (25-35) Mean Corpuscular Hemoglobin Concent 32 g/dL (31-37) Red Cell Distribution Width 16.3 % (11.5-14.5) H Platelet Count 312 x10^3/uL (140-400) Neutrophils (%) (Auto) 53 % (31-73) Lymphocytes (%) (Auto) 29 % (24-48) Monocytes (%) (Auto) 10 % (0-9) H Eosinophils (%) (Auto) 7 % (0-3) H Basophils (%) (Auto) 1 % (0-3) Neutrophils # (Auto) 4.9 x10^3/uL (1.8-7.7) Lymphocytes # (Auto) 2.7 x10^3/uL (1.0-4.8) Monocytes # (Auto) 1.0 x10^3/uL (0.0-1.1) Eosinophils # (Auto) 0.6 x10^3/uL (0.0-0.7) Basophils # (Auto) 0.1 x10^3/uL (0.0-0.2) Sodium Level 132 mmol/L (136-145) L Potassium Level 4.7 mmol/L (3.5-5.1) Chloride Level 96 mmol/L (98-107) L Carbon Dioxide Level 30 mmol/L (21-32) Anion Gap 6 (6-14) Blood Urea Nitrogen 23 mg/dL (8-26) Creatinine 1.2 mg/dL (0.7-1.3) Estimated GFR (Cockcroft-Gault) 78.2 Glucose Level 116 mg/dL (70-99) H Calcium Level 9.7 mg/dL (8.5-10.1) Glucose (Fingerstick) 137 mg/dL (70-99) H Laboratory Tests 01/09/21 05:55 Laboratory Tests 01/09/21 05:55 Meds Current Medications Medications (Trade) Dose Ordered Sig/Linden Route PRN Reason Start Time Stop Time Status Last Admin Dose Admin Aspirin (Ecotrin) 81 mg DAILYWBKFT PO 01/09/21 08:00 01/09/21 09:51 Albuterol/ Ipratropium (Duoneb) 3 ml RTQID NEB 01/08/21 12:00 01/09/21 07:41 Montelukast Sodium (Singulair) 10 mg HS PO 01/08/21 21:00 01/08/21 21:13 Heparin Sodium (Porcine) (Heparin Sodium) 5,000 unit Q8HRS SQ 01/08/21 14:00 01/09/21 10:07 Assessment Assessment 1. Fever, etiology not clear. 2. Recent COVID-19 pneumonia. 3. Acute on chronic hypoxic respiratory failure, now on PMV with trach shield, weaned off ventilation. 4. Diabetes mellitus type 2 with neuropathy. 5. Trauma to left foot with partial avulsion of the left second toenail. 6. Congestive heart failure, both diastolic and systolic, currently chronic with ejection fraction of 20-30% and diastolic dysfunction. 7. Hypertension. 8. Anemia. 9. Recent acute kidney injury with chronic kidney disease. 10. Coronary artery disease. 11. Reflux esophagitis. 12. History of drug abuse and alcohol abuse in the past. 13. Bilateral knee osteoarthritis 14. Hyperlipidemia. 15. Severe noncompliance. 16. Super morbid obesity. 17. Anemia. 18. Recent acute metabolic encephalopathy. PLAN: Consult Dr. Harvey for pulmonary evaluation and management. Consult Dr. Duane Torres for Infectious Disease evaluation and because of the fever. The patient currently not on antibiotics. Discussed with clinical social worker consider placing him in a senior living unit when possible. I will order urinalysis, urine culture and blood cultures. Monitor fever. For details, please refer to the orders. Fever resolved. D/w ,clinical social worker. Await PT/OT eval,referral to [facility]. D/w . consult Dr. Mohamud- toe injury. Plan Plan For more details regarding further plans, please refer to the orders. Justifications for Admission Other Justification PADDY LINCOLN MD Jan 09, 2021 11:34
[2021-01-09] MEDS: oxyCODONE IR 5 MG TABLET PO PRN (14:36)
[2021-01-09 15:00] VITALS: BP 119/70
--- NOTE | 2021-01-09 16:11 | NUR ---
SW following. Discussed with RN, referral faxed today to [facility]. Awaiting acceptance decision and insurance auth. SW will continue to follow.
[2021-01-09 19:00] VITALS: BP 93/48
--- NOTE | 2021-01-09 19:14 | CONS ---
DATE OF CONSULTATION: 01/09/2021 PODIATRIC CONSULTATION HISTORY OF PRESENT ILLNESS: This is a 50-year-old male. He was transferred from [facility] to [facility] facility, was brought to the ER on advice of respiratory therapist to take care of him stating he cannot care for him there for his trach. He had been discharged from [facility] here at [facility] earlier. PAST MEDICAL HISTORY: Chronic respiratory failure secondary to COVID-19, status post trach, hypertension, chronic systolic heart failure, diabetes, diabetic neuropathy requiring acute kidney disease, requiring hemodialysis, but currently off of the dialysis, PEG tube placement taken off, history of cocaine and alcoholism, anemia, coronary artery disease, hyperlipidemia, GERD, morbid obesity. PAST SURGICAL HISTORY: Removal of cyst from abdomen, benign; appendectomy, knee arthroscopic procedure, cardiac catheterization, bilateral knee arthroscopes, tracheotomy tube placed on 11/06, PEG tube placed on 11/13. SOCIAL HISTORY: Smokes 1 pack per day for the last 20 years. Known history of alcoholism and drug abuse including PCP and cocaine in the past. MEDICATIONS: Reviewed. PHYSICAL EXAMINATION:. DERMAL: The patient has elongated mycotic nails of all toenails. He has had an avulsion of the second toenail, left foot, most likely due to the chronic gryphosis of the nail plate. This is probably due to repetitive trauma. Wound Care has looked at it. There is a Band-Aid on it with a gauze dressing. Other nails are severe especially the hallux nails that are tree's horn and deeply incurvated. No break in the skin. No signs of acute bacterial infection or abscess of the toenails. Decreased turgor, absence of hair growth is noted of the foot. VASCULAR: Pedal pulses are diminished. Absent posterior tibial and dorsalis pedis. Slight pitting edema is noted of the foot and leg with stasis changes noted of the lower extremity. NEUROLOGIC: The patient has decreased sensorium and does not appreciate sharp instrumentation used as being sharp and relates numbness, burning and tingling. MUSCULOSKELETAL: Noncontributory, i.e., regarding bunions or hammertoe deformities. ASSESSMENT: 1. Diabetic with a history of neuropathy and evidence of peripheral vascular disease. 2. Chronic onychomycosis, onychocryptosis, onycholysis of all 9 toenails with avulsion of the second toenail most likely from a traumatic event. 3. Multiple medical problems as discussed above including alcoholism and drug dependency. PLAN: Debridement of all mycotic nails is performed extensively. No hemorrhage incurred. Cleaned up the second toenail avulsion site. Reapplied some Silvadene cream and a Band-Aid. The patient will continue local wound care at his dismissal from the hospital. FELIX DR: Sean TID: [id number]
[2021-01-09] MEDS: MONTELUKAST SODIUM 10 MG TABLET. PO SCH (21:00)
[2021-01-09] MEDS: clonazePAM 0.5 MG TABLET PO PRN (21:34)
[2021-01-09 23:08] VITALS: BP 86/51
[2021-01-10 03:00] VITALS: BP 142/77
[2021-01-10] MEDS: HEPARIN for SUB-Q USE 5,000 UNIT/ML VIAL. SQ SCH ×3 (05:48→21:42)
[2021-01-10 07:00] VITALS: BP 106/54
[2021-01-10] MEDS: IPRATRPIUM/ALBUTEROL 0.5/2.5MG 3 ML NEBU. NEB SCH ×4 (07:37→20:25)
[2021-01-10] MEDS: SENNOSIDES/DOCUSATE 8.6/50MG TABLET. PO SCH ×3 (07:45→21:39)
[2021-01-10 07:52] LABS: BASO # 0.1 x10^3/uL (0.0-0.2); BASO % 1 % (0-3); EOS # 0.7 x10^3/uL (0.0-0.7); EOS % 7 % (0-3); HEMATOCRIT 29.6 % (39.0-53.0); HEMOGLOBIN 9.5 g/dL (13.0-17.5); LYMPH # 3.1 x10^3/uL (1.0-4.8); LYMPH % 32 % (24-48); MEAN CORPUSCULAR HEMOGLOBIN 28 pg (25-35); MEAN CORPUSCULAR HGB CONC 32 g/dL (31-37); MEAN CORPUSCULAR VOLUME 88 fL (79-100); MONO % 11 % (0-9); NEUT # 4.8 x10^3/uL (1.8-7.7); NEUT % 50 % (31-73); PLATELET COUNT 297 x10^3/uL (140-400); RED BLOOD COUNT 3.37 x10^6/uL (4.30-5.70); WHITE BLOOD COUNT 9.7 x10^3/uL (4.0-11.0)
[2021-01-10 08:13] LABS: ALBUMIN 2.7 g/dL (3.4-5.0); ALBUMIN/GLOBULIN RATIO 0.4 (1.0-1.7); CALCIUM 9.4 mg/dL (8.5-10.1); CREATININE 1.7 mg/dL (0.7-1.3); GFR 52.3; POTASSIUM 4.9 mmol/L (3.5-5.1); TOTAL BILIRUBIN 0.4 mg/dL (0.2-1.0); TOTAL PROTEIN 8.9 g/dL (6.4-8.2)
--- NOTE | 2021-01-10 08:30 | PDOC ---
Infectious Disease Note Subjective: Subjective Patient without complaints Underwent mycotic toenail debridement yesterday by podiatry Denies fever, nausea, vomiting, shortness of breath, diarrhea, abdominal pain, rash Otherwise as above Vital Signs: Vital Signs Vital Signs Date Time Temp Pulse Resp B/P (MAP) Pulse Ox O2 Delivery O2 Flow Rate FiO2 01/10/21 07:37 94 Tracheal Collar 5.0 01/10/21 03:00 98.4 93 18 142/77 (98) 98.4 Physical Exam: PHYSICAL EXAM GENERAL: Alert, oriented x 3 male, lying in bed comfortably, in no acute distress. HEENT: Normocephalic, atraumatic. Anicteric. NECK: Supple, trach present capped LUNGS: Clear bilaterally. No wheezing. No accessory muscle use. HEART: S1, S2. No gallops or murmurs. ABDOMEN: Soft, nontender, nondistended, no rebound or guarding. EXTREMITIES: Trace edema. No clubbing, no cyanosis. Left second toenail off, base is clean. No paronychia, no swelling, no redness, no warmth. Mycotic toe nails present NEUROLOGIC: Alert and oriented x 3, grossly nonfocal. PSYCHIATRIC: Calm and cooperative. LINES: None. Medications: Inpatient Meds: Medications reviewed. Labs: Lab Laboratory Tests Test 01/09/21 11:32 01/09/21 16:41 01/09/21 19:49 01/10/21 06:00 Glucose (Fingerstick) 140 mg/dL (70-99) 134 mg/dL (70-99) 159 mg/dL (70-99) White Blood Count 9.7 x10^3/uL (4.0-11.0) Red Blood Count 3.37 x10^6/uL (4.30-5.70) Hemoglobin 9.5 g/dL (13.0-17.5) Hematocrit 29.6 % (39.0-53.0) Mean Corpuscular Volume 88 fL (79-100) Mean Corpuscular Hemoglobin 28 pg (25-35) Mean Corpuscular Hemoglobin Concent 32 g/dL (31-37) Red Cell Distribution Width 16.0 % (11.5-14.5) Platelet Count 297 x10^3/uL (140-400) Neutrophils (%) (Auto) 50 % (31-73) Lymphocytes (%) (Auto) 32 % (24-48) Monocytes (%) (Auto) 11 % (0-9) Eosinophils (%) (Auto) 7 % (0-3) Basophils (%) (Auto) 1 % (0-3) Neutrophils # (Auto) 4.8 x10^3/uL (1.8-7.7) Lymphocytes # (Auto) 3.1 x10^3/uL (1.0-4.8) Monocytes # (Auto) 1.0 x10^3/uL (0.0-1.1) Eosinophils # (Auto) 0.7 x10^3/uL (0.0-0.7) Basophils # (Auto) 0.1 x10^3/uL (0.0-0.2) Sodium Level 135 mmol/L (136-145) Potassium Level 4.9 mmol/L (3.5-5.1) Chloride Level 98 mmol/L (98-107) Carbon Dioxide Level 30 mmol/L (21-32) Anion Gap 7 (6-14) Blood Urea Nitrogen 33 mg/dL (8-26) Creatinine 1.7 mg/dL (0.7-1.3) Estimated GFR (Cockcroft-Gault) 52.3 BUN/Creatinine Ratio 19 (6-20) Glucose Level 106 mg/dL (70-99) Calcium Level 9.4 mg/dL (8.5-10.1) Total Bilirubin 0.4 mg/dL (0.2-1.0) Aspartate Amino Transf (AST/SGOT) 68 U/L (15-37) Alanine Aminotransferase (ALT/SGPT) 95 U/L (16-63) Alkaline Phosphatase 625 U/L (46-116) Total Protein 8.9 g/dL (6.4-8.2) Albumin 2.7 g/dL (3.4-5.0) Albumin/Globulin Ratio 0.4 (1.0-1.7) Test 01/10/21 07:28 Glucose (Fingerstick) 121 mg/dL (70-99) Objective: Assessment: 1. Low-grade fever, resolved. Could be viral 2. Acute on chronic respiratory failure, multifactorial. 3. Status post tracheostomy. 4. History of COVID-19 pneumonia with prolonged hospitalization, status post intubation, now on trach. 5. Cardiomyopathy with chronic systolic heart failure. 6. Diabetes with neuropathy. 7. Left second toenail removed, no infection. Mycotic toenails debrided by podiatry 8. Hypertension. 9. Chronic kidney disease. 10. Status post percutaneous endoscopic gastrostomy removed on 12/20. 11. Morbid obesity. 12. History of polysubstance abuse. 13. Anemia. Plan: Plan of Care 1. Monitor off antibiotics. 2. Maintain aspiration precaution. 3. Monitor labs and cultures. 4. Continue supportive care. 5. Continue local wound care as directed. Podiatry evaluation noted Discussed with RASHAD. REBEKA TRENT MD Jan 10, 2021 08:30
[2021-01-10] MEDS: buPROPion XL 150 MG TAB.ER.24H. PO SCH (08:48)
[2021-01-10] MEDS: ASPIRIN ENTERIC COATED 81 MG TABLET.DR. PO SCH (08:49)
[2021-01-10] MEDS: MAGNESIUM OXIDE 400 MG TABLET PO SCH ×2 (08:49→21:40)
[2021-01-10] MEDS: busPIRone 5 MG TABLET. PO SCH ×3 (08:50→21:41)
[2021-01-10] MEDS: GABAPENTIN 300 MG CAPSULE. PO SCH ×4 (08:50→21:40)
[2021-01-10] MEDS: DULoxetine HCL 30 MG CAPSULE.DR PO SCH (08:50)
[2021-01-10] MEDS: ISOSORBIDE MONONITRATE ER 30 MG TAB.ER.24H PO SCH (08:50)
[2021-01-10] MEDS: QUEtiapine 100 MG TABLET. PO SCH ×3 (08:50→21:41)
[2021-01-10] MEDS: PANTOPRAZOLE 40 MG TABLET.DR. PO SCH (08:50)
--- NOTE | 2021-01-10 08:50 | PDOC ---
PULMONARY PROGRESS NOTES DATE: 01/10/21 TIME: 08:50 Subjective Patient with no new complaints Trach in place with [place] valve Vitals Vital Signs Date Time Temp Pulse Resp B/P (MAP) Pulse Ox O2 Delivery O2 Flow Rate FiO2 01/10/21 07:37 94 Tracheal Collar 5.0 01/10/21 07:00 97.7 86 18 106/54 (71) 97.7 ROS: No Nausea, No Chest Pain, No Abdominal Pain, No Increase Cough General: Alert HEENT: Other Lungs: Clear, Crackles Cardiovascular: S1, S2 Abdomen: Soft, Non-tender Neuro Exam: Alert Extremities: Other Skin: Warm Labs Laboratory Tests Test 01/08/21 11:30 01/08/21 12:15 01/08/21 13:42 01/08/21 16:19 Glucose (Fingerstick) 156 mg/dL (70-99) 156 mg/dL (70-99) O2 Saturation 99 % (92-99) Arterial Blood pH 7.38 (7.35-7.45) Arterial Blood pCO2 at Patient Temp 48 mmHg (35-46) Arterial Blood pO2 at Patient Temp 140 mmHg (75-108) Arterial Blood HCO3 28 mmol/L (21-28) Arterial Blood Base Excess 3 mmol/L (-3-3) FiO2 40 SARS-CoV-2 RNA (MAIKOL) Negative (Negative) Test 01/08/21 20:33 01/09/21 05:55 01/09/21 07:38 01/09/21 11:32 Glucose (Fingerstick) 146 mg/dL (70-99) 137 mg/dL (70-99) 140 mg/dL (70-99) White Blood Count 9.3 x10^3/uL (4.0-11.0) Red Blood Count 3.39 x10^6/uL (4.30-5.70) Hemoglobin 9.6 g/dL (13.0-17.5) Hematocrit 29.9 % (39.0-53.0) Mean Corpuscular Volume 88 fL (79-100) Mean Corpuscular Hemoglobin 28 pg (25-35) Mean Corpuscular Hemoglobin Concent 32 g/dL (31-37) Red Cell Distribution Width 16.3 % (11.5-14.5) Platelet Count 312 x10^3/uL (140-400) Neutrophils (%) (Auto) 53 % (31-73) Lymphocytes (%) (Auto) 29 % (24-48) Monocytes (%) (Auto) 10 % (0-9) Eosinophils (%) (Auto) 7 % (0-3) Basophils (%) (Auto) 1 % (0-3) Neutrophils # (Auto) 4.9 x10^3/uL (1.8-7.7) Lymphocytes # (Auto) 2.7 x10^3/uL (1.0-4.8) Monocytes # (Auto) 1.0 x10^3/uL (0.0-1.1) Eosinophils # (Auto) 0.6 x10^3/uL (0.0-0.7) Basophils # (Auto) 0.1 x10^3/uL (0.0-0.2) Sodium Level 132 mmol/L (136-145) Potassium Level 4.7 mmol/L (3.5-5.1) Chloride Level 96 mmol/L (98-107) Carbon Dioxide Level 30 mmol/L (21-32) Anion Gap 6 (6-14) Blood Urea Nitrogen 23 mg/dL (8-26) Creatinine 1.2 mg/dL (0.7-1.3) Estimated GFR (Cockcroft-Gault) 78.2 Glucose Level 116 mg/dL (70-99) Calcium Level 9.7 mg/dL (8.5-10.1) Test 01/09/21 16:41 01/09/21 19:49 01/10/21 06:00 01/10/21 07:28 Glucose (Fingerstick) 134 mg/dL (70-99) 159 mg/dL (70-99) 121 mg/dL (70-99) White Blood Count 9.7 x10^3/uL (4.0-11.0) Red Blood Count 3.37 x10^6/uL (4.30-5.70) Hemoglobin 9.5 g/dL (13.0-17.5) Hematocrit 29.6 % (39.0-53.0) Mean Corpuscular Volume 88 fL (79-100) Mean Corpuscular Hemoglobin 28 pg (25-35) Mean Corpuscular Hemoglobin Concent 32 g/dL (31-37) Red Cell Distribution Width 16.0 % (11.5-14.5) Platelet Count 297 x10^3/uL (140-400) Neutrophils (%) (Auto) 50 % (31-73) Lymphocytes (%) (Auto) 32 % (24-48) Monocytes (%) (Auto) 11 % (0-9) Eosinophils (%) (Auto) 7 % (0-3) Basophils (%) (Auto) 1 % (0-3) Neutrophils # (Auto) 4.8 x10^3/uL (1.8-7.7) Lymphocytes # (Auto) 3.1 x10^3/uL (1.0-4.8) Monocytes # (Auto) 1.0 x10^3/uL (0.0-1.1) Eosinophils # (Auto) 0.7 x10^3/uL (0.0-0.7) Basophils # (Auto) 0.1 x10^3/uL (0.0-0.2) Sodium Level 135 mmol/L (136-145) Potassium Level 4.9 mmol/L (3.5-5.1) Chloride Level 98 mmol/L (98-107) Carbon Dioxide Level 30 mmol/L (21-32) Anion Gap 7 (6-14) Blood Urea Nitrogen 33 mg/dL (8-26) Creatinine 1.7 mg/dL (0.7-1.3) Estimated GFR (Cockcroft-Gault) 52.3 BUN/Creatinine Ratio 19 (6-20) Glucose Level 106 mg/dL (70-99) Calcium Level 9.4 mg/dL (8.5-10.1) Total Bilirubin 0.4 mg/dL (0.2-1.0) Aspartate Amino Transf (AST/SGOT) 68 U/L (15-37) Alanine Aminotransferase (ALT/SGPT) 95 U/L (16-63) Alkaline Phosphatase 625 U/L (46-116) Total Protein 8.9 g/dL (6.4-8.2) Albumin 2.7 g/dL (3.4-5.0) Albumin/Globulin Ratio 0.4 (1.0-1.7) Laboratory Tests Test 01/09/21 11:32 01/09/21 16:41 01/09/21 19:49 10/6/21 06:00 Glucose (Fingerstick) 140 mg/dL (70-99) 134 mg/dL (70-99) 159 mg/dL (70-99) White Blood Count 9.7 x10^3/uL (4.0-11.0) Red Blood Count 3.37 x10^6/uL (4.30-5.70) Hemoglobin 9.5 g/dL (13.0-17.5) Hematocrit 29.6 % (39.0-53.0) Mean Corpuscular Volume 88 fL (79-100) Mean Corpuscular Hemoglobin 28 pg (25-35) Mean Corpuscular Hemoglobin Concent 32 g/dL (31-37) Red Cell Distribution Width 16.0 % (11.5-14.5) Platelet Count 297 x10^3/uL (140-400) Neutrophils (%) (Auto) 50 % (31-73) Lymphocytes (%) (Auto) 32 % (24-48) Monocytes (%) (Auto) 11 % (0-9) Eosinophils (%) (Auto) 7 % (0-3) Basophils (%) (Auto) 1 % (0-3) Neutrophils # (Auto) 4.8 x10^3/uL (1.8-7.7) Lymphocytes # (Auto) 3.1 x10^3/uL (1.0-4.8) Monocytes # (Auto) 1.0 x10^3/uL (0.0-1.1) Eosinophils # (Auto) 0.7 x10^3/uL (0.0-0.7) Basophils # (Auto) 0.1 x10^3/uL (0.0-0.2) Sodium Level 135 mmol/L (136-145) Potassium Level 4.9 mmol/L (3.5-5.1) Chloride Level 98 mmol/L (98-107) Carbon Dioxide Level 30 mmol/L (21-32) Anion Gap 7 (6-14) Blood Urea Nitrogen 33 mg/dL (8-26) Creatinine 1.7 mg/dL (0.7-1.3) Estimated GFR (Cockcroft-Gault) 52.3 BUN/Creatinine Ratio 19 (6-20) Glucose Level 106 mg/dL (70-99) Calcium Level 9.4 mg/dL (8.5-10.1) Total Bilirubin 0.4 mg/dL (0.2-1.0) Aspartate Amino Transf (AST/SGOT) 68 U/L (15-37) Alanine Aminotransferase (ALT/SGPT) 95 U/L (16-63) Alkaline Phosphatase 625 U/L (46-116) Total Protein 8.9 g/dL (6.4-8.2) Albumin 2.7 g/dL (3.4-5.0) Albumin/Globulin Ratio 0.4 (1.0-1.7) Test 01/10/21 07:28 Glucose (Fingerstick) 121 mg/dL (70-99) Medications Active Scripts Medications Dose Route/Sig Max Daily Dose Days Date Category Glucagon Emergency Kit (Glucagon,Human Recombinant) 1 Mg Kit 1 Mg IM LOW BLOOD SUGAR 01/08/21 Reported Gabapentin (Gabapentin) 300 Mg Capsule 300 Mg PO QID 01/08/21 Reported Cymbalta (Duloxetine Hcl) 60 Mg Capsule.dr 1 Cap PO DAILY 01/08/21 Reported Heparin 2,000 Unit/2 Ml Vial (Heparin Sodium,Porcine/Pf) 1,000 Unit/1 Ml Vial 5,000 Unit IJ Q8HRS 01/08/21 Reported Isosorbide Mononitrate Er (Isosorbide Mononitrate) 30 Mg Tab.er.24h 1 Tab PO DAILY 01/08/21 Reported Clonazepam 1 Mg Tablet 0.5 Mg PO PRN BID PRN 01/08/21 Reported Magnesium Oxide 400 Mg Tablet 2 Tab PO BID 01/08/21 Reported Lantus Solostar (Insulin Glargine,Hum.rec.anlog) 100 Unit/1 Ml Insuln.pen 34 Unit SQ BID 01/08/21 Reported Melatonin 3 Mg Tab.rapdis 2 Tab PO QHS 30 01/08/21 Reported Oxycodone Hcl Immed.release (Oxycodone Hcl) 15 Mg Tablet 15 Mg PO PRN Q6HRS PRN 01/08/21 Reported Flonase Allergy Relief (Fluticasone Propionate) 9.9 Ml [place].susp 2 Sprays NS DAILY 01/08/21 Reported Seroquel (Quetiapine Fumarate) 100 Mg Tablet 100 Mg PO TID 01/08/21 Reported Protonix (Pantoprazole Sodium) 40 Mg Tablet.dr 40 Mg PO DAILYAC 01/08/21 Reported Buspirone Hcl 5 Mg Tablet 1 Tab PO TID 01/08/21 Reported Senokot-S Tablet (Sennosides/Docusate Sodium) 1 Each Tablet 2 Tab PO BID 30 01/08/21 Reported Metoprolol Tartrate 25 Mg Tablet 1 Tab PO BID 01/08/21 Reported Wellbutrin Xl (Bupropion Hcl) 300 Mg Tab.er.24h 1 Tab PO DAILY 01/19/18 Rx Duoneb 0.5-3(2.5) Mg/3 Ml (Albuterol/Ipratropium) 3 Ml Ampul.neb 3 Ml NEB RTQID 30 01/19/18 Rx Singulair Tablet (Montelukast Sodium) 10 Mg Tablet 10 Mg PO HS 01/15/18 Reported Aspirin Ec (Aspirin) 81 Mg Tablet. 81 Mg PO DAILYWBKFT 04/04/17 Rx Impression . IMPRESSION: 1. Acute on chronic respiratory failure, multifactorial. 2. Status post tracheostomy. 3. COVID-19 pneumonia, initially hospitalized on the 16 of October, complicated with respiratory failure requiring intubation. 4. Cardiomyopathy, ejection fraction 20-25%, chronic systolic heart failure. 5. Diabetes. 6. Hypertension. 7. Chronic anemia. 8. Chronic kidney disease. 9. Status post PEG, removed on the 20 of December. 10. History of polysubstance use. 11. Morbid obesity. Plan . Updated 01/10 We will follow up on nocturnal desat study Continue trach in place Disposition Per PCP updated 01/[address] Jean, not safe to decannulate We will check nocturnal desat study [place] valve Antibiotics per ID \ PLAN: 1. Continue trach in place with [place] valve, will check nocturnal desat study. 2. Obtain additional information, apparently the patient is coded in the past, may require trach in place for a prolonged period of time. 3. Antibiotics per ID. 4. Aggressive PT and OT. 5. We will make further recommendations based upon additional diagnostic studies. DISCUSSION: At this juncture, I do not think it is safe to attempt decannulation. We will continue oxygen supplementation and Passy-[place] valve. I do appreciate the privilege in sharing in the patient's care. PHILIP CABALLERO MD Jan 10, 2021 08:50
[2021-01-10] MEDS: METOPROLOL TART IMMED RELEASE 25 MG TABLET. PO SCH ×2 (09:00→21:40)
[2021-01-10] MEDS: FLUTICASONE 50MCG/NASAL SPRAY 16GM BOTTLE. NS SCH (09:06)
[2021-01-10] MEDS ORDERED: ACET325T21 PO (09:13)
[2021-01-10] MEDS: INSULIN GLARGINE SYRINGE. SQ SCH ×2 (09:13→21:42)
--- NOTE | 2021-01-10 09:15 | SNU/HH DC ---
DISCHARGE ORDERS DISCHARGE INFORMATION: FINAL DIAGNOSIS Problems Medical Problems: (1) COPD (chronic obstructive pulmonary disease) Status: Acute (2) Tracheostomy in place Status: Acute (3) Weakness Status: Acute CONDITION ON DISCHARGE: Stable RESIDENTIAL: SNF STAY <30 DAYS: Yes POST DISCHARGE ORDERS: ACTIVITY ORDERS: Activity as tolerated WEIGHT BEARING STATUS: As tolerated DIET AFTER DISCHARGE: ADA (Cardiac) OTHER ORDERS: Fall precaution CHECKS AFTER DISCHARGE: CHECKS AFTER DISCHARGE: Check blood press - daily, Check blood sugar, ac/hs, Check your Temp as needed, Weigh Yourself Daily FOLLOW-UP: PHYSICIAN FOLLOW-UP: See me in office after discharge from [facility] ADDITIONAL FOLLOW-UP: see / LAB ORDERS FOR FOLLOW-UP: CBC, CMP, magnesium Additional Instructions: Tracheostomy care,suction prn. foot care, fall precaution. Has tracheostomy with PMV,trach shield TREATMENT/EQUIPMENT ORDERS: ADAPTIVE EQUIPMENT NEEDED: None RESPIRATORY EQUIPMENT NEEDED: Oxygen (5 L/min. PMV with tracheostomy tube) Physical Therapy For: Evalulation/Treatment Occupational Therapy For: Evaluation/Treatment Speech Language Pathology For: Evaluation/Treatment DISCHARGE MEDICATIONS: Home Meds Active Scripts Insulin Lispro (Admelog) 100 Unit/1 Ml Vial, 15 UNITS SQ TIDAC for DM for 30 Days, #1 EACH Prov:PADDY LINCOLN MD 01/30/21 Insulin Glargine,Hum.rec.anlog (LANTUS SOLOSTAR) 100 Unit/1 Ml Insuln.pen, 50 UNIT SQ BID for DM I, #15 ML 3 Refills Hold if blood sugar less than 100. Prov:PADDY LINCOLN MD 01/30/21 Gabapentin (GABAPENTIN) 300 Mg Capsule, 600 MG PO TID for Neuropathy for 30 Days, #180 CAP Prov:PADDY LINCOLN MD 01/29/21 [Diclofenac Sodium 1% Topical] 100 GM GEL..GRAM. No Conflict Check, 1 AMBAR TP BID for joint pain, EACH Prov:PADDY LINCOLN MD 01/29/21 Prednisone (PREDNISONE) 20 Mg Tablet, 1 TAB PO DAILY for copd, #7 TAB Prov:PADDY LINCOLN MD 01/24/21 Gabapentin (GABAPENTIN ) 300 Mg Capsule, 600 MG PO TID for NEUROGENIC PAIN for 30 Days, #180 CAP Prov:PADDY LINCOLN MD 01/21/21 Acetaminophen (ACETAMINOPHEN) 325 Mg Tablet, 650 MG PO PRN Q6HRS PRN for MILD PAIN / TEMP > 100.3'F, #10 TAB Prov:PADDY LINCOLN MD 01/10/21 Bupropion Hcl (WELLBUTRIN XL) 300 Mg Tab.er.24h, 1 TAB PO DAILY, #30 TAB 2 Refills Prov:PADDY LINCOLN MD 01/19/18 Ipratropium/Albuterol Sulfate (DUONEB 0.5-3(2.5) MG/3 ML) 3 Ml Ampul.neb, 3 ML NEB RTQID for 30 Days, #120 EACH Prov:PADDY LINCOLN MD 01/19/18 Aspirin (ASPIRIN EC) 81 Mg Tablet., 81 MG PO DAILYWBKFT, #360 TAB.SR Prov:KRISTY TRAORE FOOT CUTTER 04/04/17 Reported Medications Glucagon,Human Recombinant (GLUCAGON EMERGENCY KIT) 1 Mg Kit, 1 MG IM low blood sugar for hypoglycemia, #2 KIT 5 Refills 01/08/21 Duloxetine Hcl (CYMBALTA) 60 Mg Capsule., 1 CAP PO DAILY for depression, #90 CAP 3 Refills 01/08/21 Heparin Sodium,Porcine/Pf (HEPARIN 2,000 UNIT/2 ML VIAL) 1,000 Unit/1 Ml Vial, 5000 UNIT IJ Q8HRS for blood clot prevention, EACH 01/08/21 Isosorbide Mononitrate (ISOSORBIDE MONONITRATE ER) 30 Mg Tab.er.24h, 1 TAB PO DAILY for HTN, #30 TAB 5 Refills 01/08/21 Clonazepam (CLONAZEPAM) 1 Mg Tablet, 0.5 MG PO PRN BID PRN for ANXIETY / AGIT ATION, TAB 01/08/21 Magnesium Oxide (MAGNESIUM OXIDE) 400 Mg Tablet, 2 TAB PO BID for supplement, #60 TAB 5 Refills 01/08/21 Melatonin (MELATONIN) 3 Mg Tab.rapdis, 2 TAB PO QHS for sleep for 30 Days, #60 TAB 0 Refills 01/08/21 Oxycodone Hcl (OXYCODONE HCL IMMED.RELEASE) 15 Mg Tablet, 15 MG PO PRN Q6HRS PRN for PAIN, TAB 0 Refills 01/08/21 Fluticasone Propionate (Flonase Allergy Relief) 9.9 Ml [place].susp, 2 SPRAYS NS DAILY for COPD, ML 01/08/21 Quetiapine Fumarate (SEROQUEL) 100 Mg Tablet, 100 MG PO TID for depression, TAB 01/08/21 Pantoprazole Sodium (PROTONIX ) 40 Mg Tablet.dr, 40 MG PO DAILYAC for GERD, TAB 01/08/21 Buspirone Hcl (BUSPIRONE HCL) 5 Mg Tablet, 1 TAB PO TID for anxiety, #60 TAB 2 Refills 01/08/21 Sennosides/Docusate Sodium (SENOKOT-S TABLET) 1 Each Tablet, 2 TAB PO BID for constipation for 30 Days, #120 TAB 0 Refills 01/08/21 Metoprolol Tartrate (METOPROLOL TARTRATE) 25 Mg Tablet, 1 TAB PO BID for Blood pressure, #180 TAB 1 Refill 01/08/21 Montelukast Sodium (SINGULAIR TABLET ) 10 Mg Tablet, 10 MG PO HS for FOR ASTHMA, #30 TAB 0 Refills 01/15/18 Discontinued Scripts Insulin Glargine,Hum.rec.anlog (LANTUS SOLOSTAR) 100 Unit/1 Ml Insuln.pen, 40 UNIT SQ BID for DM I, #15 ML 3 Refills Hold if blood sugar less than 100. Prov:PADDY LINCOLN MD 01/26/21 Insulin Glargine,Hum.rec.anlog (LANTUS SOLOSTAR) 100 Unit/1 Ml Insuln.pen, 34 UNIT SQ BID for DM I, #15 ML 3 Refills Hold if blood sugar less than 100. Prov:PADDY LINCOLN MD 01/10/21 PADDY LINCOLN MD Jan 10, 2021 09:15
--- NOTE | 2021-01-10 10:02 | PDOC3 ---
IM DISCHARGE SUMMARY Date of Admission Date of Admission Date of Admission: Jan 09, 2021 at 10:06 Date of Discharge Date of Discharge January 30, 2021 Primary Diagnosis Primary Diagnosis 1. Fever, etiology not clear. 2. Recent COVID-19 pneumonia. 3. Acute on chronic hypoxic respiratory failure, now on PMV with trach shield, weaned off ventilation. 4. Diabetes mellitus type 2 with neuropathy. 5. Trauma to left foot with partial avulsion of the left second toenail. 6. Congestive heart failure, both diastolic and systolic, currently chronic with ejection fraction of 20-30% and diastolic dysfunction. 7. Hypertension. 8. Anemia. 9. Recent acute kidney injury with chronic kidney disease. 10. Coronary artery disease. 11. Reflux esophagitis. 12. History of drug abuse and alcohol abuse in the past. 13. Bilateral knee osteoarthritis 14. Hyperlipidemia. 15. Severe noncompliance. 16. Super morbid obesity. 17. Anemia. 18. Recent acute metabolic encephalopathy. Consults Consults Manny Harvey MD; Duane Torres MD; Randall Mohamud Dpm Labs Labs Laboratory Tests Test 01/09/21 11:32 01/09/21 16:41 01/09/21 19:49 01/10/21 06:00 Glucose (Fingerstick) 140 mg/dL (70-99) H 134 mg/dL (70-99) H 159 mg/dL (70-99) H White Blood Count 9.7 x10^3/uL (4.0-11.0) Red Blood Count 3.37 x10^6/uL (4.30-5.70) L Hemoglobin 9.5 g/dL (13.0-17.5) L Hematocrit 29.6 % (39.0-53.0) L Mean Corpuscular Volume 88 fL (79-100) Mean Corpuscular Hemoglobin 28 pg (25-35) Mean Corpuscular Hemoglobin Concent 32 g/dL (31-37) Red Cell Distribution Width 16.0 % (11.5-14.5) H Platelet Count 297 x10^3/uL (140-400) Neutrophils (%) (Auto) 50 % (31-73) Lymphocytes (%) (Auto) 32 % (24-48) Monocytes (%) (Auto) 11 % (0-9) H Eosinophils (%) (Auto) 7 % (0-3) H Basophils (%) (Auto) 1 % (0-3) Neutrophils # (Auto) 4.8 x10^3/uL (1.8-7.7) Lymphocytes # (Auto) 3.1 x10^3/uL (1.0-4.8) Monocytes # (Auto) 1.0 x10^3/uL (0.0-1.1) Eosinophils # (Auto) 0.7 x10^3/uL (0.0-0.7) Basophils # (Auto) 0.1 x10^3/uL (0.0-0.2) Sodium Level 135 mmol/L (136-145) L Potassium Level 4.9 mmol/L (3.5-5.1) Chloride Level 98 mmol/L (98-107) Carbon Dioxide Level 30 mmol/L (21-32) Anion Gap 7 (6-14) Blood Urea Nitrogen 33 mg/dL (8-26) H Creatinine 1.7 mg/dL (0.7-1.3) H Estimated GFR (Cockcroft-Gault) 52.3 BUN/Creatinine Ratio 19 (6-20) Glucose Level 106 mg/dL (70-99) H Calcium Level 9.4 mg/dL (8.5-10.1) Total Bilirubin 0.4 mg/dL (0.2-1.0) Aspartate Amino Transferase (AST) 68 U/L (15-37) H Alanine Aminotransferase (ALT) 95 U/L (16-63) H Alkaline Phosphatase 625 U/L (46-116) H Total Protein 8.9 g/dL (6.4-8.2) H Albumin 2.7 g/dL (3.4-5.0) L Albumin/Globulin Ratio 0.4 (1.0-1.7) L Test 01/10/21 07:28 Glucose (Fingerstick) 121 mg/dL (70-99) H Laboratory Tests 01/10/21 06:00 Laboratory Tests 01/10/21 06:00 Brief hospital course Brief hospital course This 50-year-old male was noted to have COVID-19 pneumonia on 10/16/2020 and was initially admitted to [facility] on 10/20 and was intubated on 10/21. He was extubated on 28th, but required reintubation. Subsequently, the patient was transferred to [facility] on 11/15/2020. At [facility], the patient was weaned off the ventilator, but continued to require tracheostomy tube. He has had multiple episodes of decannulation because of his acute metabolic encephalopathy that significantly improved but slowly over a period of time. The patient was treated for multiple medical problems including COVID-19 pneumonia; acute on chronic hypoxic respiratory failure; acute kidney injury, requiring hemodialysis, which he has not been receiving for several weeks as his renal function continued to improve. He has elevated LFTs. He has congestive heart failure, both systolic and diastolic with ejection fraction of 20-25%. He also had dysphagia and required PEG tube feeding and eventually his oral intake continued to improve and he does not require any tube feeding. Dr. Jalloh then removed the PEG tube on 12/20/2020. As the patient continued to improve, he was discharged from [facility] on 01/04/2021 to [facility]. The patient was sent out from the group home unit on the advice of the respiratory therapist to take care of him stating that they could not take care of him there. The patient could not be directly admitted to [facility] as it is an LTAC and [facility] management and transfer again. For more details regarding the past history, family history, social history, surgical history and other details, please refer to the H&P. Consult Dr. Harvey for pulmonary evaluation and management. Consult Dr. Duane Torres for Infectious Disease evaluation and because of the fever. The patient currently not on antibiotics. Discussed with social work professor consider placing him in a group home unit when possible. I will order urinalysis, urine culture and blood cultures. Monitor fever. For details, please refer to the orders. Fever resolved. consult Dr. Mohamud- toe injury. He debrided his nails. Avulsion injury of the toenail improving. Physical deconditioning with neuropathy-continue PT OT. Dose of gabapentin increased. Discussed with Dr. Willis. Patient has bilateral foot drop and needs ankle braces. Diabetic neuropathy-he will need diabetic shoes. Blood sugar elevated due to steroids.Increase insulin. Renal function and hyperkalemia are improving. Elevated LFTs getting worse. Consult Dr. Jalloh for GI evaluation and management. He recently had liver imaging. LFTs elevated due to medication effect, fatty liver and CHF. Discussed with Dr. Willis. Transfer to SNF when accepted. Acute exacerbation of COPD. Improving. Prednisone 20 mg daily for 7 days. Patient is a tracheostomy tube with PMV. Patient is advised to follow-up with Dr. Harvey as outpatient [facility]. I have recommended to him that he may benefit from leaving the tracheostomy tube in, permanently because he also has obstructive sleep apnea Medications Medications reviewed and reconciled for discharge. Home Meds Active Scripts Insulin Lispro (Admelog) 100 Unit/1 Ml Vial, 15 UNITS SQ TIDAC for DM for 30 Days, #1 EACH Prov:PADDY LINCOLN MD 01/30/21 Insulin Glargine,Hum.rec.anlog (LANTUS SOLOSTAR) 100 Unit/1 Ml Insuln.pen, 50 UNIT SQ BID for DM I, #15 ML 3 Refills Hold if blood sugar less than 100. Prov:PADDY LINCOLN MD 01/30/21 Gabapentin (GABAPENTIN) 300 Mg Capsule, 600 MG PO TID for Neuropathy for 30 Days, #180 CAP Prov:PADDY LINCOLN MD 01/29/21 [Diclofenac Sodium 1% Topical] 100 GM GEL..GRAM. No Conflict Check, 1 AMBAR TP BID for joint pain, EACH Prov:PADDY LINCOLN MD 01/29/21 Prednisone (PREDNISONE) 20 Mg Tablet, 1 TAB PO DAILY for copd, #7 TAB Prov:PADDY LINCOLN MD 01/24/21 Gabapentin (GABAPENTIN ) 300 Mg Capsule, 600 MG PO TID for NEUROGENIC PAIN for 30 Days, #180 CAP Prov:PADDY LINCOLN MD 01/21/21 Acetaminophen (ACETAMINOPHEN) 325 Mg Tablet, 650 MG PO PRN Q6HRS PRN for MILD PAIN / TEMP > 100.3'F, #10 TAB Prov:PADDY LINCOLN MD 01/10/21 Bupropion Hcl (WELLBUTRIN XL) 300 Mg Tab.er.24h, 1 TAB PO DAILY, #30 TAB 2 Refills Prov:PADDY LINCOLN MD 01/19/18 Ipratropium/Albuterol Sulfate (DUONEB 0.5-3(2.5) MG/3 ML) 3 Ml Ampul.neb, 3 ML NEB RTQID for 30 Days, #120 EACH Prov:PADDY LINCOLN MD 01/19/18 Aspirin (ASPIRIN EC) 81 Mg Tablet., 81 MG PO DAILYWBKFT, #360 TAB.SR Prov:LEÓNKRISTY M SIGN LANGUAGE TRANSLATOR 04/04/17 Reported Medications Glucagon,Human Recombinant (GLUCAGON EMERGENCY KIT) 1 Mg Kit, 1 MG IM low blood sugar for hypoglycemia, #2 KIT 5 Refills 01/08/21 Duloxetine Hcl (CYMBALTA) 60 Mg Capsule.dr, 1 CAP PO DAILY for depression, #90 CAP 3 Refills 01/08/21 Heparin Sodium,Porcine/Pf (HEPARIN 2,000 UNIT/2 ML VIAL) 1,000 Unit/1 Ml Vial, 5000 UNIT IJ Q8HRS for blood clot prevention, EACH 01/08/21 Isosorbide Mononitrate (ISOSORBIDE MONONITRATE ER) 30 Mg Tab.er.24h, 1 TAB PO DAILY for HTN, #30 TAB 5 Refills 01/08/21 Clonazepam (CLONAZEPAM) 1 Mg Tablet, 0.5 MG PO PRN BID PRN for ANXIETY / AGITATION, TAB 01/08/21 Magnesium Oxide (MAGNESIUM OXIDE) 400 Mg Tablet, 2 TAB PO BID for supplement, #60 TAB 5 Refills 01/08/21 Melatonin (MELATONIN) 3 Mg Tab.rapdis, 2 TAB PO QHS for sleep for 30 Days, #60 TAB 0 Refills 01/08/21 Oxycodone Hcl (OXYCODONE HCL IMMED.RELEASE) 15 Mg Tablet, 15 MG PO PRN Q6HRS PRN for PAIN, TAB 0 Refills 01/08/21 Fluticasone Propionate (Flonase Allergy Relief) 9.9 Ml [place].susp, 2 SPRAYS NS DAILY for COPD, ML 01/08/21 Quetiapine Fumarate (SEROQUEL) 100 Mg Tablet, 100 MG PO TID for depression, TAB 01/08/21 Pantoprazole Sodium (PROTONIX ) 40 Mg Tablet., 40 MG PO DAILYAC for GERD, TAB 01/08/21 Buspirone Hcl (BUSPIRONE HCL) 5 Mg Tablet, 1 TAB PO TID for anxiety, #60 TAB 2 Refills 01/08/21 Sennosides/Docusate Sodium (SENOKOT-S TABLET) 1 Each Tablet, 2 TAB PO BID for constipation for 30 Days, #120 TAB 0 Refills 01/08/21 Metoprolol Tartrate (METOPROLOL TARTRATE) 25 Mg Tablet, 1 TAB PO BID for Blood pressure, #180 TAB 1 Refill 01/08/21 Montelukast Sodium (SINGULAIR TABLET ) 10 Mg Tablet, 10 MG PO HS for FOR ASTHMA, #30 TAB 0 Refills 01/15/18 Discontinued Scripts Insulin Glargine,Hum.rec.anlog (LANTUS SOLOSTAR) 100 Unit/1 Ml Insuln.pen, 40 UNIT SQ BID for DM I, #15 ML 3 Refills Hold if blood sugar less than 100. Prov:PADDY LINCOLN MD 01/26/21 Insulin Glargine,Hum.rec.anlog (LANTUS SOLOSTAR) 100 Unit/1 Ml Insuln.pen, 34 UNIT SQ BID for DM I, #15 ML 3 Refills Hold if blood sugar less than 100. Prov:PADDY LINCOLN MD 01/10/21 Allergy Allergies Coded Allergies Type Severity Reaction Last Updated Verified amoxicillin Allergy Intermediate 05/13/19 Yes clavulanic acid Allergy Intermediate 05/13/19 Yes Follow up [facility] DISPOSITION: Long Term facility Comments Discharge Management - 35 minutes. For other details please refer to discharge instructions Justicifation of Admission Dx: Justifications for Admission: Justification of Admission Dx: Comment: (Acute on chronic hypoxic respiratory failure) PADDY LINCOLN MD Jan 10, 2021 10:02
[2021-01-10] MEDS ORDERED: INSU100I13 SQ (10:05)
[2021-01-10 11:00] VITALS: BP 102/45
[2021-01-10 11:08] LABS: BILIRUBIN,URINE SMALL (NEG); CLARITY,URINE CLOUDY; COLOR,URINE AMBER; NITRITE,URINE NEGATIVE (NEG); PH,URINE 5.5 (<5.0-8.0); PROTEIN,URINE 30 mg/dL (NEG-TRACE)
[2021-01-10 11:26] LABS: BACTERIA,URINE FEW /HPF (0-FEW); HYALINE CASTS, URINE MODERATE /HPF; RBC,URINE 0 /HPF (0-2); WBC,URINE OCC /HPF (0-4)
--- NOTE | 2021-01-10 13:56 | NUR ---
JOSE DANIEL following. Discussed with RN, JOSE DANIEL spoke with [facility], they do not have any beds until at least 01/18 or 01/[address]. Dr. Jean notified. [facility] stated they could review the referral. JOSE DANIEL faxed referral to [facility], awaiting acceptance decision. Dr. Jean notified. JOSE DANIEL will continue to follow.
[2021-01-10] MEDS: oxyCODONE IR 5 MG TABLET PO PRN ×2 (14:21→21:39)
[2021-01-10 15:00] VITALS: BP 131/63
[2021-01-10 19:00] VITALS: BP 139/61
[2021-01-10] MEDS: clonazePAM 0.5 MG TABLET PO PRN (21:39)
[2021-01-10] MEDS: MONTELUKAST SODIUM 10 MG TABLET. PO SCH (21:40)
[2021-01-10 23:00] VITALS: BP 127/67
[2021-01-11 03:00] VITALS: BP 140/79
[2021-01-11] MEDS: oxyCODONE IR 5 MG TABLET PO PRN ×3 (05:04→21:40)
[2021-01-11] MEDS: HEPARIN for SUB-Q USE 5,000 UNIT/ML VIAL. SQ SCH ×3 (05:05→21:46)
[2021-01-11 07:00] VITALS: BP 109/45
[2021-01-11] MEDS: IPRATRPIUM/ALBUTEROL 0.5/2.5MG 3 ML NEBU. NEB SCH ×4 (07:27→20:54)
--- NOTE | 2021-01-11 07:44 | PDOC ---
Infectious Disease Note Subjective: Subjective Patient without complaints no fevers Vital Signs: Vital Signs Vital Signs Date Time Temp Pulse Resp B/P (MAP) Pulse Ox O2 Delivery O2 Flow Rate FiO2 01/11/21 07:27 97 Tracheal Collar 8.0 01/11/21 03:00 98.6 83 20 140/79 (99) 98.6 Physical Exam: PHYSICAL EXAM GENERAL: Alert, oriented x 3 male, lying in bed comfortably, in no acute distress. HEENT: Normocephalic, atraumatic. Anicteric. NECK: Supple, trach present capped LUNGS: Clear bilaterally. No wheezing. No accessory muscle use. HEART: S1, S2. No gallops or murmurs. ABDOMEN: Soft, nontender, nondistended, no rebound or guarding. EXTREMITIES: Trace edema. No clubbing, no cyanosis. Left second toenail off, base is clean. No paronychia, no swelling, no redness, no warmth. Mycotic toe nails present NEUROLOGIC: Alert and oriented x 3, grossly nonfocal. PSYCHIATRIC: Calm and cooperative. LINES: None. Medications: Inpatient Meds: Medications reviewed. Labs: Lab Laboratory Tests Test 01/10/21 10:55 01/10/21 11:43 01/10/21 16:28 01/10/21 20:25 Urine Collection Type Unknown Urine Color Stephanie Urine Clarity Cloudy Urine pH 5.5 (<5.0-8.0) Urine Specific [place] 1.020 (1.000-1.030) Urine Protein 30 mg/dL (NEG-TRACE) Urine Glucose (UA) Negative mg/dL (NEG) Urine Ketones (Stick) Trace mg/dL (NEG) Urine Blood Negative (NEG) Urine Nitrite Negative (NEG) Urine Bilirubin Small (NEG) Urine Urobilinogen Dipstick 1.0 mg/dL (0.2 mg/dL) Urine Leukocyte Esterase Trace (NEG) Urine RBC 0 /HPF (0-2) Urine WBC Occ /HPF (0-4) Urine Squamous Epithelial Cells Mod /LPF Urine Bacteria Few /HPF (0-FEW) Urine Hyaline Casts Moderate /HPF Urine Mucus Mod /LPF Glucose (Fingerstick) 158 mg/dL (70-99) 147 mg/dL (70-99) 215 mg/dL (70-99) Objective: Assessment: 1. Low-grade fever, resolved. 2. Acute on chronic respiratory failure, multifactorial. 3. Status post tracheostomy. 4. History of COVID-19 pneumonia with prolonged hospitalization, status post intubation, now on trach. 5. Cardiomyopathy with chronic systolic heart failure. 6. Diabetes with neuropathy. 7. Left second toenail removed, no infection. Mycotic toenails debrided by podiatry 8. Hypertension. 9. Chronic kidney disease. 10. Status post percutaneous endoscopic gastrostomy removed on 12/20. 11. Morbid obesity. 12. History of polysubstance abuse. 13. Anemia. Plan: Plan of Care 1. Monitor off antibiotics. 2. Continue supportive care. 3. Continue local wound care as directed. REBEKA TRENT MD Jan 11, 2021 07:44
--- NOTE | 2021-01-11 08:42 | PDOC ---
PULMONARY PROGRESS NOTES DATE: 01/11/21 TIME: 08:42 Subjective Patient with no new complaints Trach in place with [place] valve Vitals Vital Signs Date Time Temp Pulse Resp B/P (MAP) Pulse Ox O2 Delivery O2 Flow Rate FiO2 01/11/21 07:27 97 Tracheal Collar 8.0 01/11/21 07:00 98.0 78 22 109/45 (66) 98.0 ROS: No Nausea, No Chest Pain, No Abdominal Pain, No Increase Cough General: Alert HEENT: Other Lungs: Clear, Crackles Cardiovascular: S1, S2 Abdomen: Soft, Non-tender Neuro Exam: Alert Extremities: Other Skin: Warm Labs Laboratory Tests Test 01/09/21 11:32 01/09/21 16:41 01/09/21 19:49 01/10/21 06:00 Glucose (Fingerstick) 140 mg/dL (70-99) 134 mg/dL (70-99) 159 mg/dL (70-99) White Blood Count 9.7 x10^3/uL (4.0-11.0) Red Blood Count 3.37 x10^6/uL (4.30-5.70) Hemoglobin 9.5 g/dL (13.0-17.5) Hematocrit 29.6 % (39.0-53.0) Mean Corpuscular Volume 88 fL (79-100) Mean Corpuscular Hemoglobin 28 pg (25-35) Mean Corpuscular Hemoglobin Concent 32 g/dL (31-37) Red Cell Distribution Width 16.0 % (11.5-14.5) Platelet Count 297 x10^3/uL (140-400) Neutrophils (%) (Auto) 50 % (31-73) Lymphocytes (%) (Auto) 32 % (24-48) Monocytes (%) (Auto) 11 % (0-9) Eosinophils (%) (Auto) 7 % (0-3) Basophils (%) (Auto) 1 % (0-3) Neutrophils # (Auto) 4.8 x10^3/uL (1.8-7.7) Lymphocytes # (Auto) 3.1 x10^3/uL (1.0-4.8) Monocytes # (Auto) 1.0 x10^3/uL (0.0-1.1) Eosinophils # (Auto) 0.7 x10^3/uL (0.0-0.7) Basophils # (Auto) 0.1 x10^3/uL (0.0-0.2) Sodium Level 135 mmol/L (136-145) Potassium Level 4.9 mmol/L (3.5-5.1) Chloride Level 98 mmol/L (98-107) Carbon Dioxide Level 30 mmol/L (21-32) Anion Gap 7 (6-14) Blood Urea Nitrogen 33 mg/dL (8-26) Creatinine 1.7 mg/dL (0.7-1.3) Estimated GFR (Cockcroft-Gault) 52.3 BUN/Creatinine Ratio 19 (6-20) Glucose Level 106 mg/dL (70-99) Calcium Level 9.4 mg/dL (8.5-10.1) Total Bilirubin 0.4 mg/dL (0.2-1.0) Aspartate Amino Transf (AST/SGOT) 68 U/L (15-37) Alanine Aminotransferase (ALT/SGPT) 95 U/L (16-63) Alkaline Phosphatase 625 U/L (46-116) Total Protein 8.9 g/dL (6.4-8.2) Albumin 2.7 g/dL (3.4-5.0) Albumin/Globulin Ratio 0.4 (1.0-1.7) Test 01/10/21 07:28 01/10/21 10:55 01/10/21 11:43 01/10/21 16:28 Glucose (Fingerstick) 121 mg/dL (70-99) 158 mg/dL (70-99) 147 mg/dL (70-99) Urine Collection Type Unknown Urine Color Stephanie Urine Clarity Cloudy Urine pH 5.5 (<5.0-8.0) Urine Specific [place] 1.020 (1.000-1.030) Urine Protein 30 mg/dL (NEG-TRACE) Urine Glucose (UA) Negative mg/dL (NEG) Urine Ketones (Stick) Trace mg/dL (NEG) Urine Blood Negative (NEG) Urine Nitrite Negative (NEG) Urine Bilirubin Small (NEG) Urine Urobilinogen Dipstick 1.0 mg/dL (0.2 mg/dL) Urine Leukocyte Esterase Trace (NEG) Urine RBC 0 /HPF (0-2) Urine WBC Occ /HPF (0-4) Urine Squamous Epithelial Cells Mod /LPF Urine Bacteria Few /HPF (0-FEW) Urine Hyaline Casts Moderate /HPF Urine Mucus Mod /LPF Test 01/10/21 20:25 01/11/21 07:42 Glucose (Fingerstick) 215 mg/dL (70-99) 123 mg/dL (70-99) Laboratory Tests Test 01/10/21 10:55 01/10/21 11:43 01/10/21 16:28 01/10/21 20:25 Urine Collection Type Unknown Urine Color Stephanie Urine Clarity Cloudy Urine pH 5.5 (<5.0-8.0) Urine Specific [place] 1.020 (1.000-1.030) Urine Protein 30 mg/dL (NEG-TRACE) Urine Glucose (UA) Negative mg/dL (NEG) Urine Ketones (Stick) Trace mg/dL (NEG) Urine Blood Negative (NEG) Urine Nitrite Negative (NEG) Urine Bilirubin Small (NEG) Urine Urobilinogen Dipstick 1.0 mg/dL (0.2 mg/dL) Urine Leukocyte Esterase Trace (NEG) Urine RBC 0 /HPF (0-2) Urine WBC Occ /HPF (0-4) Urine Squamous Epithelial Cells Mod /LPF Urine Bacteria Few /HPF (0-FEW) Urine Hyaline Casts Moderate /HPF Urine Mucus Mod /LPF Glucose (Fingerstick) 158 mg/dL (70-99) 147 mg/dL (70-99) 215 mg/dL (70-99) Test 01/11/21 07:42 Glucose (Fingerstick) 123 mg/dL (70-99) Medications Active Scripts Medications Dose Route/Sig Max Daily Dose Days Date Category Glucagon Emergency Kit (Glucagon,Human Recombinant) 1 Mg Kit 1 Mg IM LOW BLOOD SUGAR 01/08/21 Reported Gabapentin (Gabapentin) 300 Mg Capsule 300 Mg PO QID 01/08/21 Reported Cymbalta (Duloxetine Hcl) 60 Mg Capsule.dr 1 Cap PO DAILY 01/08/21 Reported Heparin 2,000 Unit/2 Ml Vial (Heparin Sodium,Porcine/Pf) 1,000 Unit/1 Ml Vial 5,000 Unit IJ Q8HRS 01/08/21 Reported Isosorbide Mononitrate Er (Isosorbide Mononitrate) 30 Mg Tab.er.24h 1 Tab PO DAILY 01/08/21 Reported Clonazepam 1 Mg Tablet 0.5 Mg PO PRN BID PRN 01/08/21 Reported Magnesium Oxide 400 Mg Tablet 2 Tab PO BID 01/08/21 Reported Lantus Solostar (Insulin Glargine,Hum.rec.anlog) 100 Unit/1 Ml Insuln.pen 34 Unit SQ BID 01/08/21 Reported Melatonin 3 Mg Tab.rapdis 2 Tab PO QHS 30 01/08/21 Reported Oxycodone Hcl Immed.release (Oxycodone Hcl) 15 Mg Tablet 15 Mg PO PRN Q6HRS PRN 01/08/21 Reported Flonase Allergy Relief (Fluticasone Propionate) 9.9 Ml [place].susp 2 Sprays NS DAILY 01/08/21 Reported Seroquel (Quetiapine Fumarate) 100 Mg Tablet 100 Mg PO TID 01/08/21 Reported Protonix (Pantoprazole Sodium) 40 Mg Tablet. 40 Mg PO DAILYAC 01/08/21 Reported Buspirone Hcl 5 Mg Tablet 1 Tab PO TID 01/08/21 Reported Senokot-S Tablet (Sennosides/Docusate Sodium) 1 Each Tablet 2 Tab PO BID 30 01/08/21 Reported Metoprolol Tartrate 25 Mg Tablet 1 Tab PO BID 01/08/21 Reported Wellbutrin Xl (Bupropion Hcl) 300 Mg Tab.er.24h 1 Tab PO DAILY 01/19/18 Rx Duoneb 0.5-3(2.5) Mg/3 Ml (Albuterol/Ipratropium) 3 Ml Ampul.neb 3 Ml NEB RTQID 30 01/19/18 Rx Singulair Tablet (Montelukast Sodium) 10 Mg Tablet 10 Mg PO HS 01/15/18 Reported Aspirin Ec (Aspirin) 81 Mg Tablet. 81 Mg PO DAILYWBKFT 04/04/17 Rx Impression . IMPRESSION: 1. Acute on chronic respiratory failure, multifactorial. 2. Status post tracheostomy. 3. COVID-19 pneumonia, initially hospitalized on the 16 of October, complicated with respiratory failure requiring intubation. 4. Cardiomyopathy, ejection fraction 20-25%, chronic systolic heart failure. 5. Diabetes. 6. Hypertension. 7. Chronic anemia. 8. Chronic kidney disease. 9. Status post PEG, removed on the 20 of December. 10. History of polysubstance use. 11. Morbid obesity. Plan . Respiratory status compensated Discharge per PHILIP Pteerson MD Jan 11, 2021 08:42
[2021-01-11] MEDS: FLUTICASONE 50MCG/NASAL SPRAY 16GM BOTTLE. NS SCH (09:00)
[2021-01-11] MEDS: ISOSORBIDE MONONITRATE ER 30 MG TAB.ER.24H PO SCH (09:09)
[2021-01-11] MEDS: buPROPion XL 150 MG TAB.ER.24H. PO SCH (09:09)
[2021-01-11] MEDS: DULoxetine HCL 30 MG CAPSULE.DR PO SCH (09:09)
[2021-01-11] MEDS: ASPIRIN ENTERIC COATED 81 MG TABLET.DR. PO SCH (09:09)
[2021-01-11] MEDS: busPIRone 5 MG TABLET. PO SCH ×3 (09:09→21:40)
[2021-01-11] MEDS: QUEtiapine 100 MG TABLET. PO SCH ×3 (09:09→21:42)
[2021-01-11] MEDS: MAGNESIUM OXIDE 400 MG TABLET PO SCH ×2 (09:09→21:40)
[2021-01-11] MEDS: SENNOSIDES/DOCUSATE 8.6/50MG TABLET. PO SCH ×2 (09:09→21:40)
[2021-01-11] MEDS: METOPROLOL TART IMMED RELEASE 25 MG TABLET. PO SCH ×2 (09:10→21:00)
[2021-01-11] MEDS: GABAPENTIN 300 MG CAPSULE. PO SCH ×4 (09:10→21:40)
[2021-01-11] MEDS: PANTOPRAZOLE 40 MG TABLET.DR. PO SCH (09:10)
[2021-01-11] MEDS: INSULIN GLARGINE SYRINGE. SQ SCH ×2 (09:14→21:46)
--- NOTE | 2021-01-11 10:02 | PDOC ---
IM PROGRESS NOTES- Subjective Subjective No pain,dyspnea. Complaints of numbness of feet Objective Vitals/I&O Vital Signs Date Time Temp Pulse Resp B/P (MAP) Pulse Ox O2 Delivery O2 Flow Rate FiO2 01/11/21 09:10 78 109/45 01/11/21 07:27 97 Tracheal Collar 8.0 01/11/21 07:00 98.0 22 98.0 I & O 01/10/21 01/10/21 01/11/21 15:00 23:00 07:00 Intake Total 120 ml Balance 120 ml Physical Exam Physical Exam General Appearance - alert and in no distress Chest - decreased breath sounds at bases Heart - S1 and S2 normal Abdomen - soft, non tender Neurological - alert and oriented Musculoskeletal - generalized weakness Extremities - no edema Labs Laboratory Tests Test 01/10/21 10:55 01/10/21 11:43 01/10/21 16:28 01/10/21 20:25 Urine Collection Type Unknown Urine Color Stephanie Urine Clarity Cloudy Urine pH 5.5 (<5.0-8.0) Urine Specific [place] 1.020 (1.000-1.030) Urine Protein 30 mg/dL (NEG-TRACE) Urine Glucose (UA) Negative mg/dL (NEG) Urine Ketones (Stick) Trace mg/dL (NEG) Urine Blood Negative (NEG) Urine Nitrite Negative (NEG) Urine Bilirubin Small (NEG) Urine Urobilinogen Dipstick 1.0 mg/dL (0.2 mg/dL) Urine Leukocyte Esterase Trace (NEG) Urine RBC 0 /HPF (0-2) Urine WBC Occ /HPF (0-4) Urine Squamous Epithelial Cells Mod /LPF Urine Bacteria Few /HPF (0-FEW) Urine Hyaline Casts Moderate /HPF Urine Mucus Mod /LPF Glucose (Fingerstick) 158 mg/dL (70-99) H 147 mg/dL (70-99) H 215 mg/dL (70-99) H Test 01/11/21 07:42 Glucose (Fingerstick) 123 mg/dL (70-99) H Assessment Assessment 1. Fever, etiology not clear. 2. Recent COVID-19 pneumonia. 3. Acute on chronic hypoxic respiratory failure, now on PMV with trach shield, weaned off ventilation. 4. Diabetes mellitus type 2 with neuropathy. 5. Trauma to left foot with partial avulsion of the left second toenail. 6. Congestive heart failure, both diastolic and systolic, currently chronic with ejection fraction of 20-30% and diastolic dysfunction. 7. Hypertension. 8. Anemia. 9. Recent acute kidney injury with chronic kidney disease. 10. Coronary artery disease. 11. Reflux esophagitis. 12. History of drug abuse and alcohol abuse in the past. 13. Bilateral knee osteoarthritis 14. Hyperlipidemia. 15. Severe noncompliance. 16. Super morbid obesity. 17. Anemia. 18. Recent acute metabolic encephalopathy. PLAN: Consult Dr. Harvey for pulmonary evaluation and management. Consult Dr. Duane Torres for Infectious Disease evaluation and because of the fever. The patient currently not on antibiotics. Discussed with social sciences instructor consider placing him in a senior care unit when possible. I will order urinalysis, urine culture and blood cultures. Monitor fever. For details, please refer to the orders. Fever resolved. D/w ,social sciences instructor. Continue PT OT consult Dr. Mohamud- toe injury. Overall improving. Possible discharge to [facility] today if accepted. Please refer to the discharge summary for more details. Discharge management 35 minutes. Plan Plan For more details regarding further plans, please refer to the orders. Justifications for Admission Other Justification PADDY LINCOLN MD Jan 11, 2021 10:01
--- NOTE | 2021-01-11 10:46 | NUR ---
SW following. Discussed with RN, [facility] are at capacity for trach beds at this time. SW trying to determine other facilities which can meet this need. [facility] cannot accept. SW will continue to follow.
[2021-01-11 11:00] VITALS: BP 108/50
[2021-01-11 15:00] VITALS: BP 122/60
[2021-01-11 19:00] VITALS: BP 99/43
[2021-01-11] MEDS: MONTELUKAST SODIUM 10 MG TABLET. PO SCH (21:40)
[2021-01-11 23:00] VITALS: BP 132/52
[2021-01-12 03:00] VITALS: BP 95/48
[2021-01-12] MEDS: HEPARIN for SUB-Q USE 5,000 UNIT/ML VIAL. SQ SCH ×3 (06:29→22:29)
[2021-01-12 07:00] VITALS: BP 153/82
--- NOTE | 2021-01-12 08:18 | PDOC ---
PULMONARY PROGRESS NOTES DATE: 01/12/21 TIME: 08:18 Subjective Patient with no new complaints Trach in place with Passy-Roff valve Vitals Vital Signs Date Time Temp Pulse Resp B/P (MAP) Pulse Ox O2 Delivery O2 Flow Rate FiO2 01/12/21 07:00 97.8 85 22 153/82 (105) 100 Tracheal Collar 3.0 97.8 ROS: No Nausea, No Chest Pain, No Abdominal Pain, No Increase Cough General: Alert HEENT: Other Lungs: Clear, Crackles Cardiovascular: S1, S2 Abdomen: Soft, Non-tender Neuro Exam: Alert Extremities: Other Skin: Warm Labs Laboratory Tests Test 01/10/21 10:55 01/10/21 11:43 01/10/21 16:28 01/10/21 20:25 Urine Collection Type Unknown Urine Color Stephanie Urine Clarity Cloudy Urine pH 5.5 (<5.0-8.0) Urine Specific [place] 1.020 (1.000-1.030) Urine Protein 30 mg/dL (NEG-TRACE) Urine Glucose (UA) Negative mg/dL (NEG) Urine Ketones (Stick) Trace mg/dL (NEG) Urine Blood Negative (NEG) Urine Nitrite Negative (NEG) Urine Bilirubin Small (NEG) Urine Urobilinogen Dipstick 1.0 mg/dL (0.2 mg/dL) Urine Leukocyte Esterase Trace (NEG) Urine RBC 0 /HPF (0-2) Urine WBC Occ /HPF (0-4) Urine Squamous Epithelial Cells Mod /LPF Urine Bacteria Few /HPF (0-FEW) Urine Hyaline Casts Moderate /HPF Urine Mucus Mod /LPF Glucose (Fingerstick) 158 mg/dL (70-99) 147 mg/dL (70-99) 215 mg/dL (70-99) Test 01/11/21 07:42 01/11/21 11:51 01/11/21 17:04 01/11/21 19:29 Glucose (Fingerstick) 123 mg/dL (70-99) 118 mg/dL (70-99) 148 mg/dL (70-99) 182 mg/dL (70-99) Test 01/12/21 07:28 Glucose (Fingerstick) 155 mg/dL (70-99) Laboratory Tests Test 01/11/21 11:51 01/11/21 17:04 01/11/21 19:29 01/12/21 07:28 Glucose (Fingerstick) 118 mg/dL (70-99) 148 mg/dL (70-99) 182 mg/dL (70-99) 155 mg/dL (70-99) Medications Active Scripts Medications Dose Route/Sig Max Daily Dose Days Date Category Glucagon Emergency Kit (Glucagon,Human Recombinant) 1 Mg Kit 1 Mg IM LOW BLOOD SUGAR 01/08/21 Reported Gabapentin (Gabapentin) 300 Mg Capsule 300 Mg PO QID 01/08/21 Reported Cymbalta (Duloxetine Hcl) 60 Mg Capsule.dr 1 Cap PO DAILY 01/08/21 Reported Heparin 2,000 Unit/2 Ml Vial (Heparin Sodium,Porcine/Pf) 1,000 Unit/1 Ml Vial 5,000 Unit IJ Q8HRS 01/08/21 Reported Isosorbide Mononitrate Er (Isosorbide Mononitrate) 30 Mg Tab.er.24h 1 Tab PO DAILY 01/08/21 Reported Clonazepam 1 Mg Tablet 0.5 Mg PO PRN BID PRN 01/08/21 Reported Magnesium Oxide 400 Mg Tablet 2 Tab PO BID 01/08/21 Reported Lantus Solostar (Insulin Glargine,Hum.rec.anlog) 100 Unit/1 Ml Insuln.pen 34 Unit SQ BID 01/08/21 Reported Melatonin 3 Mg Tab.rapdis 2 Tab PO QHS 30 01/08/21 Reported Oxycodone Hcl Immed.release (Oxycodone Hcl) 15 Mg Tablet 15 Mg PO PRN Q6HRS PRN 01/08/21 Reported Flonase Allergy Relief (Fluticasone Propionate) 9.9 Ml Sultana.susp 2 Sprays NS DAILY 01/08/21 Reported Seroquel (Quetiapine Fumarate) 100 Mg Tablet 100 Mg PO TID 01/08/21 Reported Protonix (Pantoprazole Sodium) 40 Mg Tablet.dr 40 Mg PO DAILYAC 01/08/21 Reported Buspirone Hcl 5 Mg Tablet 1 Tab PO TID 01/08/21 Reported Senokot-S Tablet (Sennosides/Docusate Sodium) 1 Each Tablet 2 Tab PO BID 30 01/08/21 Reported Metoprolol Tartrate 25 Mg Tablet 1 Tab PO BID 01/08/21 Reported Wellbutrin Xl (Bupropion Hcl) 300 Mg Tab.er.24h 1 Tab PO DAILY 10/15/18 Rx Duoneb 0.5-3(2.5) Mg/3 Ml (Albuterol/Ipratropium) 3 Ml Ampul.neb 3 Ml NEB RTQID 30 01/19/18 Rx Singulair Tablet (Montelukast Sodium) 10 Mg Tablet 10 Mg PO HS 01/15/18 Reported Aspirin Ec (Aspirin) 81 Mg Tablet. 81 Mg PO DAILYWBKFT 04/04/17 Rx Impression . IMPRESSION: 1. Acute on chronic respiratory failure, multifactorial. 2. Status post tracheostomy. 3. COVID-19 pneumonia, initially hospitalized on the 16 of October, complicated with respiratory failure requiring intubation. 4. Cardiomyopathy, ejection fraction 20-25%, chronic systolic heart failure. 5. Diabetes. 6. Hypertension. 7. Chronic anemia. 8. Chronic kidney disease. 9. Status post PEG, removed on the 20 of December. 10. History of polysubstance use. 11. Morbid obesity. Plan . Nocturnal desat study noted Continue oxygen supplementation nightly Placement is an issue PHILIP CABALLERO MD Jan 12, 2021 08:18
[2021-01-12] MEDS: IPRATRPIUM/ALBUTEROL 0.5/2.5MG 3 ML NEBU. NEB SCH ×4 (08:35→21:32)
[2021-01-12] MEDS: oxyCODONE IR 5 MG TABLET PO PRN ×2 (08:37→15:46)
[2021-01-12] MEDS: QUEtiapine 100 MG TABLET. PO SCH ×3 (08:38→22:28)
[2021-01-12] MEDS: DULoxetine HCL 30 MG CAPSULE.DR PO SCH (08:38)
[2021-01-12] MEDS: PANTOPRAZOLE 40 MG TABLET.DR. PO SCH (08:38)
[2021-01-12] MEDS: busPIRone 5 MG TABLET. PO SCH ×3 (08:38→22:30)
[2021-01-12] MEDS: MAGNESIUM OXIDE 400 MG TABLET PO SCH ×2 (08:38→22:29)
[2021-01-12] MEDS: ASPIRIN ENTERIC COATED 81 MG TABLET.DR. PO SCH (08:38)
[2021-01-12] MEDS: buPROPion XL 150 MG TAB.ER.24H. PO SCH (08:38)
[2021-01-12] MEDS: SENNOSIDES/DOCUSATE 8.6/50MG TABLET. PO SCH ×2 (08:38→22:30)
[2021-01-12] MEDS: GABAPENTIN 300 MG CAPSULE. PO SCH ×4 (08:38→22:28)
[2021-01-12] MEDS: ISOSORBIDE MONONITRATE ER 30 MG TAB.ER.24H PO SCH (08:39)
[2021-01-12] MEDS: METOPROLOL TART IMMED RELEASE 25 MG TABLET. PO SCH ×2 (08:39→22:28)
[2021-01-12] MEDS: FLUTICASONE 50MCG/NASAL SPRAY 16GM BOTTLE. NS SCH (08:41)
[2021-01-12] MEDS: INSULIN GLARGINE SYRINGE. SQ SCH ×2 (08:43→23:28)
--- NOTE | 2021-01-12 08:55 | PDOC ---
IM PROGRESS NOTES- Subjective Subjective No pain,dyspnea. Complaints of numbness of feet Objective Vitals/I&O Vital Signs Date Time Temp Pulse Resp B/P (MAP) Pulse Ox O2 Delivery O2 Flow Rate FiO2 01/12/21 08:39 85 153/82 01/12/21 08:35 100 Tracheal Collar 8.0 01/12/21 07:00 97.8 22 97.8 I & O 01/11/21 01/11/21 01/12/21 15:00 23:00 07:00 Intake Total 400 ml 300 ml 400 ml Output Total 900 ml 1000 ml Balance -500 ml 300 ml -600 ml Physical Exam Physical Exam General Appearance - alert and in no distress Chest - decreased breath sounds at bases Heart - S1 and S2 normal Abdomen - soft, non tender Neurological - alert and oriented Musculoskeletal - generalized weakness Extremities - no edema Labs Laboratory Tests Test 01/11/21 11:51 01/11/21 17:04 01/11/21 19:29 01/12/21 07:28 Glucose (Fingerstick) 118 mg/dL (70-99) H 148 mg/dL (70-99) H 182 mg/dL (70-99) H 155 mg/dL (70-99) H Assessment Assessment 1. Fever, etiology not clear. 2. Recent COVID-19 pneumonia. 3. Acute on chronic hypoxic respiratory failure, now on PMV with trach shield, weaned off ventilation. 4. Diabetes mellitus type 2 with neuropathy. 5. Trauma to left foot with partial avulsion of the left second toenail. 6. Congestive heart failure, both diastolic and systolic, currently chronic with ejection fraction of 20-30% and diastolic dysfunction. 7. Hypertension. 8. Anemia. 9. Recent acute kidney injury with chronic kidney disease. 10. Coronary artery disease. 11. Reflux esophagitis. 12. History of drug abuse and alcohol abuse in the past. 13. Bilateral knee osteoarthritis 14. Hyperlipidemia. 15. Severe noncompliance. 16. Super morbid obesity. 17. Anemia. 18. Recent acute metabolic encephalopathy. PLAN: Consult Dr. Harvey for pulmonary evaluation and management. Consult Dr. Duane Torres for Infectious Disease evaluation and because of the fever. The patient currently not on antibiotics. Discussed with social service manager consider placing him in a fpc unit when possible. I will order urinalysis, urine culture and blood cultures. Monitor fever. For details, please refer to the orders. Fever resolved. D/w ,social service manager. Continue PT OT consult Dr. Mohamud- toe injury. Overall improving. Possible discharge to nursing facility today if accepted. Please refer to the discharge summary for more details. Discharge management 35 minutes. Plan Plan For more details regarding further plans, please refer to the orders. Justifications for Admission Other Justification PADDY LINCOLN MD Jan 12, 2021 08:55
--- NOTE | 2021-01-12 10:14 | RESP ---
DATE OF SERVICE: 01/09/2021 ATTENDING PHYSICIAN: Kirby Jean MD. The patient underwent a nocturnal desat study on room air with a trach in place. He had significant periods of oxyhemoglobin desaturation below 88%. IMPRESSION: Abnormal nocturnal desaturation study on the patient with tracheostomy tube in place on room air. PLAN: Recommend to continue trach in place. Trach shield with oxygen supplementation. Follow saturations to above 90%. CORY/ROBERT DR: CORY/jody TID: [id number]
--- NOTE | 2021-01-12 10:36 | PDOC ---
Infectious Disease Note Subjective: Subjective Patient without complaints Remains afebrile Vital Signs: Vital Signs Vital Signs Date Time Temp Pulse Resp B/P (MAP) Pulse Ox O2 Delivery O2 Flow Rate FiO2 01/12/21 08:39 85 153/82 01/12/21 08:35 100 Tracheal Collar 8.0 01/12/21 07:00 97.8 22 97.8 Physical Exam: PHYSICAL EXAM GENERAL: Alert, oriented x 3 male, lying in bed comfortably, in no acute distress. HEENT: Normocephalic, atraumatic. Anicteric. NECK: Supple, trach present LUNGS: Clear bilaterally. No wheezing. No accessory muscle use. HEART: S1, S2. No gallops or murmurs. ABDOMEN: Soft, nontender, nondistended, no rebound or guarding. EXTREMITIES: Trace edema. No clubbing, no cyanosis. Left second toenail off, base is clean. No paronychia, no swelling, no redness, no warmth. Mycotic toe nails present NEUROLOGIC: Alert and oriented x 3, grossly nonfocal. PSYCHIATRIC: Calm and cooperative. LINES: None. Medications: Inpatient Meds: Medications reviewed. Labs: Lab Laboratory Tests Test 01/11/21 11:51 01/11/21 17:04 01/11/21 19:29 01/12/21 07:28 Glucose (Fingerstick) 118 mg/dL (70-99) 148 mg/dL (70-99) 182 mg/dL (70-99) 155 mg/dL (70-99) Objective: Assessment: 1. Low-grade fever, resolved. 2. Acute on chronic respiratory failure, multifactorial. 3. Status post tracheostomy. 4. History of COVID-19 pneumonia with prolonged hospitalization, status post intubation, now on trach. 5. Cardiomyopathy with chronic systolic heart failure. 6. Diabetes with neuropathy. 7. Left second toenail removed, no infection. Mycotic toenails debrided by podiatry 8. Hypertension. 9. Chronic kidney disease. 10. Status post percutaneous endoscopic gastrostomy removed on 12/20. 11. Morbid obesity. 12. History of polysubstance abuse. 13. Anemia. Plan: Plan of Care 1. Monitor off antibiotics. 2. Continue supportive care. 3. Continue local wound care as directed. REBEKA TRENT MD Jan 12, 2021 10:36
[2021-01-12 11:00] VITALS: BP 142/83
--- NOTE | 2021-01-12 11:38 | NUR ---
SW following. Discussed with RN, SW struggling to find placement for pt due to limited number of facilities able to take trachs, and those facilities are at capacity currently. [facility] can take trachs. SW left message for therapy to determine if pt could do acute rehab. SW will fax referral to [facility] and advise of pending question for therapy. SW will continue to follow.
[2021-01-12 15:00] VITALS: BP 131/74
[2021-01-12 19:00] VITALS: BP 128/68
[2021-01-12] MEDS: MONTELUKAST SODIUM 10 MG TABLET. PO SCH (22:28)
[2021-01-12 23:00] VITALS: BP 124/63
[2021-01-13 03:00] VITALS: BP 130/59
[2021-01-13] MEDS: HEPARIN for SUB-Q USE 5,000 UNIT/ML VIAL. SQ SCH ×3 (06:24→22:44)
[2021-01-13 07:00] VITALS: BP 180/76
[2021-01-13] MEDS: IPRATRPIUM/ALBUTEROL 0.5/2.5MG 3 ML NEBU. NEB SCH ×4 (07:45→20:48)
--- NOTE | 2021-01-13 08:29 | PDOC ---
IM PROGRESS NOTES- Subjective Subjective No pain,dyspnea. Complaints of bloating. Objective Vitals/I&O Vital Signs Date Time Temp Pulse Resp B/P (MAP) Pulse Ox O2 Delivery O2 Flow Rate FiO2 01/13/21 07:46 98 Tracheal Collar 8.0 01/13/21 03:00 97.7 73 18 130/59 (82) 97.7 I & O 01/12/21 01/12/21 01/13/21 15:00 23:00 07:00 Intake Total 500 ml 300 ml 600 ml Balance 500 ml 300 ml 600 ml Physical Exam Physical Exam General Appearance - alert and in no distress Has a tracheostomy tube with PMV. Chest - decreased breath sounds at bases Heart - S1 and S2 normal Abdomen - soft, non tender Neurological - alert and oriented Musculoskeletal - generalized weakness Extremities - no edema Labs Laboratory Tests Test 01/12/21 11:24 01/12/21 16:47 01/12/21 19:32 01/12/21 22:37 Glucose (Fingerstick) 197 mg/dL (70-99) H 167 mg/dL (70-99) H 176 mg/dL (70-99) H 160 mg/dL (70-99) H Test 01/13/21 07:09 Glucose (Fingerstick) 115 mg/dL (70-99) H Assessment Assessment 1. Fever, etiology not clear. 2. Recent COVID-19 pneumonia. 3. Acute on chronic hypoxic respiratory failure, now on PMV with trach shield, weaned off ventilation. 4. Diabetes mellitus type 2 with neuropathy. 5. Trauma to left foot with partial avulsion of the left second toenail. 6. Congestive heart failure, both diastolic and systolic, currently chronic with ejection fraction of 20-30% and diastolic dysfunction. 7. Hypertension. 8. Anemia. 9. Recent acute kidney injury with chronic kidney disease. 10. Coronary artery disease. 11. Reflux esophagitis. 12. History of drug abuse and alcohol abuse in the past. 13. Bilateral knee osteoarthritis 14. Hyperlipidemia. 15. Severe noncompliance. 16. Super morbid obesity. 17. Anemia. 18. Recent acute metabolic encephalopathy. PLAN: Consult Dr. Harvey for pulmonary evaluation and management. Consult Dr. Duane Torres for Infectious Disease evaluation and because of the fever. The patient currently not on antibiotics. Discussed with social work coordinator consider placing him in a assisted unit when possible. I will order urinalysis, urine culture and blood cultures. Monitor fever. For details, please refer to the orders. Fever resolved. D/w ,social work coordinator. Continue PT OT consult Dr. Mohamud- toe injury. Overall improving. Awaiting transfer to a fpc. There is a big shortage of tracheostomy beds in nursing homes. Please refer to the discharge summary for more details. Discharge management 35 minutes. Plan Plan For more details regarding further plans, please refer to the orders. Justifications for Admission Other Justification PADDY LINCOLN MD Jan 13, 2021 08:28
[2021-01-13] MEDS: buPROPion XL 150 MG TAB.ER.24H. PO SCH (09:47)
[2021-01-13] MEDS: SENNOSIDES/DOCUSATE 8.6/50MG TABLET. PO SCH ×2 (09:47→22:39)
[2021-01-13] MEDS: MAGNESIUM OXIDE 400 MG TABLET PO SCH ×2 (09:47→22:39)
[2021-01-13] MEDS: GABAPENTIN 300 MG CAPSULE. PO SCH ×4 (09:47→22:40)
[2021-01-13] MEDS: DULoxetine HCL 30 MG CAPSULE.DR PO SCH (09:47)
[2021-01-13] MEDS: ASPIRIN ENTERIC COATED 81 MG TABLET.DR. PO SCH (09:47)
[2021-01-13] MEDS: METOPROLOL TART IMMED RELEASE 25 MG TABLET. PO SCH ×2 (09:48→22:39)
[2021-01-13] MEDS: PANTOPRAZOLE 40 MG TABLET.DR. PO SCH (09:48)
[2021-01-13] MEDS: ISOSORBIDE MONONITRATE ER 30 MG TAB.ER.24H PO SCH (09:48)
[2021-01-13] MEDS: busPIRone 5 MG TABLET. PO SCH ×3 (09:48→22:39)
[2021-01-13] MEDS: QUEtiapine 100 MG TABLET. PO SCH ×3 (09:49→22:39)
[2021-01-13] MEDS: oxyCODONE IR 5 MG TABLET PO PRN ×2 (09:49→15:57)
[2021-01-13] MEDS: FLUTICASONE 50MCG/NASAL SPRAY 16GM BOTTLE. NS SCH (09:52)
[2021-01-13] MEDS: INSULIN GLARGINE SYRINGE. SQ SCH ×2 (09:57→22:43)
[2021-01-13 11:00] VITALS: BP 158/75
[2021-01-13 15:00] VITALS: BP 152/81
[2021-01-13 19:44] VITALS: BP 142/79
[2021-01-13] MEDS: clonazePAM 0.5 MG TABLET PO PRN (22:39)
[2021-01-13] MEDS: MONTELUKAST SODIUM 10 MG TABLET. PO SCH (22:39)
[2021-01-13 23:51] VITALS: BP 143/77
[2021-01-14 03:39] VITALS: BP 133/64
[2021-01-14] MEDS: HEPARIN for SUB-Q USE 5,000 UNIT/ML VIAL. SQ SCH ×3 (05:34→20:32)
[2021-01-14] MEDS: IPRATRPIUM/ALBUTEROL 0.5/2.5MG 3 ML NEBU. NEB SCH ×4 (06:11→20:05)
[2021-01-14 07:00] VITALS: BP 145/80
--- NOTE | 2021-01-14 08:19 | PDOC ---
IM PROGRESS NOTES- Subjective Subjective No pain,dyspnea. Complaints of bloating. Objective Vitals/I&O Vital Signs Date Time Temp Pulse Resp B/P (MAP) Pulse Ox O2 Delivery O2 Flow Rate FiO2 01/14/21 06:10 100 Tracheal Collar 8.0 01/14/21 03:39 97.6 75 18 133/64 (87) 97.6 I & O 01/13/21 01/13/21 01/14/21 15:00 23:00 07:00 Intake Total 240 ml Output Total 900 ml 900 ml 900 ml Balance -900 ml -900 ml -660 ml Physical Exam Physical Exam General Appearance - alert and in no distress Chest - decreased breath sounds at bases has a tracheostomy tube with PMV. Heart - S1 and S2 normal Abdomen - soft, non tender Neurological - alert and oriented Musculoskeletal - generalized weakness Extremities - no edema Labs Laboratory Tests Test 01/13/21 11:52 01/13/21 16:40 01/13/21 20:42 01/14/21 07:51 Glucose (Fingerstick) 157 mg/dL (70-99) H 141 mg/dL (70-99) H 146 mg/dL (70-99) H 110 mg/dL (70-99) H Assessment Assessment 1. Fever, etiology not clear. 2. Recent COVID-19 pneumonia. 3. Acute on chronic hypoxic respiratory failure, now on PMV with trach shield, weaned off ventilation. 4. Diabetes mellitus type 2 with neuropathy. 5. Trauma to left foot with partial avulsion of the left second toenail. 6. Congestive heart failure, both diastolic and systolic, currently chronic with ejection fraction of 20-30% and diastolic dysfunction. 7. Hypertension. 8. Anemia. 9. Recent acute kidney injury with chronic kidney disease. 10. Coronary artery disease. 11. Reflux esophagitis. 12. History of drug abuse and alcohol abuse in the past. 13. Bilateral knee osteoarthritis 14. Hyperlipidemia. 15. Severe noncompliance. 16. Super morbid obesity. 17. Anemia. 18. Recent acute metabolic encephalopathy. PLAN: Consult Dr. Harvey for pulmonary evaluation and management. Consult Dr. Daune Torres for Infectious Disease evaluation and because of the fever. The patient currently not on antibiotics. Discussed with adoption social worker consider placing him in a jail unit when possible. I will order urinalysis, urine culture and blood cultures. Monitor fever. For details, please refer to the orders. Fever resolved. D/w ,adoption social worker. Continue PT OT consult Dr. Mohamud- toe injury. Overall improving. Awaiting transfer to a intermediate. There is a big shortage of tracheostomy beds in nursing homes. Please refer to the discharge summary for more details. Discharge management 35 minutes. Plan Plan For more details regarding further plans, please refer to the orders. Justifications for Admission Other Justification PADDY LINCOLN MD Jan 14, 2021 08:19
[2021-01-14] MEDS: MAGNESIUM OXIDE 400 MG TABLET PO SCH ×2 (10:29→20:31)
[2021-01-14] MEDS: SENNOSIDES/DOCUSATE 8.6/50MG TABLET. PO SCH ×2 (10:30→20:31)
[2021-01-14] MEDS: QUEtiapine 100 MG TABLET. PO SCH ×3 (10:30→20:31)
[2021-01-14] MEDS: busPIRone 5 MG TABLET. PO SCH ×3 (10:30→20:30)
[2021-01-14] MEDS: buPROPion XL 150 MG TAB.ER.24H. PO SCH (10:30)
[2021-01-14] MEDS: PANTOPRAZOLE 40 MG TABLET.DR. PO SCH (10:31)
[2021-01-14] MEDS: ASPIRIN ENTERIC COATED 81 MG TABLET.DR. PO SCH (10:31)
[2021-01-14] MEDS: GABAPENTIN 300 MG CAPSULE. PO SCH ×4 (10:31→21:00)
[2021-01-14] MEDS: ISOSORBIDE MONONITRATE ER 30 MG TAB.ER.24H PO SCH (10:31)
[2021-01-14] MEDS: DULoxetine HCL 30 MG CAPSULE.DR PO SCH (10:32)
[2021-01-14] MEDS: METOPROLOL TART IMMED RELEASE 25 MG TABLET. PO SCH ×2 (10:32→21:00)
[2021-01-14] MEDS: INSULIN GLARGINE SYRINGE. SQ SCH ×2 (10:34→20:31)
[2021-01-14] MEDS: FLUTICASONE 50MCG/NASAL SPRAY 16GM BOTTLE. NS SCH (10:35)
[2021-01-14 10:53] LABS: BASO # 0.1 x10^3/uL (0.0-0.2); BASO % 1 % (0-3); EOS # 0.6 x10^3/uL (0.0-0.7); EOS % 8 % (0-3); HEMATOCRIT 31.5 % (39.0-53.0); LYMPH # 2.1 x10^3/uL (1.0-4.8); LYMPH % 24 % (24-48); MEAN CORPUSCULAR HEMOGLOBIN 28 pg (25-35); MEAN CORPUSCULAR HGB CONC 32 g/dL (31-37); MEAN CORPUSCULAR VOLUME 88 fL (79-100); MONO # 0.9 x10^3/uL (0.0-1.1); MONO % 10 % (0-9); NEUT % 58 % (31-73); PLATELET COUNT 253 x10^3/uL (140-400); RED BLOOD COUNT 3.59 x10^6/uL (4.30-5.70); RED CELL DISTRIBUTION WIDTH 15.6 % (11.5-14.5); WHITE BLOOD COUNT 8.6 x10^3/uL (4.0-11.0)
[2021-01-14 11:00] VITALS: BP 147/79
[2021-01-14 11:01] LABS: ALBUMIN 2.8 g/dL (3.4-5.0); ALBUMIN/GLOBULIN RATIO 0.5 (1.0-1.7); CALCIUM 9.5 mg/dL (8.5-10.1); CREATININE 0.9 mg/dL (0.7-1.3); POTASSIUM 5.6 mmol/L (3.5-5.1); TOTAL BILIRUBIN 0.4 mg/dL (0.2-1.0); TOTAL PROTEIN 8.8 g/dL (6.4-8.2)
[2021-01-14 15:00] VITALS: BP 142/77
[2021-01-14 19:51] VITALS: BP 121/72
[2021-01-14] MEDS: MONTELUKAST SODIUM 10 MG TABLET. PO SCH (20:31)
[2021-01-14] MEDS: clonazePAM 0.5 MG TABLET PO PRN (20:31)
[2021-01-14 23:24] VITALS: BP 143/72
[2021-01-15 03:54] VITALS: BP 145/82
[2021-01-15] MEDS: HEPARIN for SUB-Q USE 5,000 UNIT/ML VIAL. SQ SCH ×3 (05:48→21:41)
[2021-01-15 07:00] VITALS: BP 150/91
[2021-01-15] MEDS: IPRATRPIUM/ALBUTEROL 0.5/2.5MG 3 ML NEBU. NEB SCH ×4 (08:07→20:52)
--- NOTE | 2021-01-15 08:51 | PDOC ---
IM PROGRESS NOTES- Subjective Subjective No pain,dyspnea. Objective Vitals/I&O Vital Signs Date Time Temp Pulse Resp B/P (MAP) Pulse Ox O2 Delivery O2 Flow Rate FiO2 01/15/21 08:08 99 Tracheal Collar 8.0 01/15/21 03:54 98.4 85 20 145/82 (103) 98.4 I & O 01/14/21 01/14/21 01/15/21 15:00 23:00 07:00 Intake Total 360 ml 600 ml Output Total 1300 ml Balance 360 ml -700 ml Physical Exam Physical Exam General Appearance - alert and in no distress Chest - decreased breath sounds at bases. Trach shield, tracheostomy tube with PMV Heart - S1 and S2 normal Abdomen - soft, non tender Neurological - alert and oriented Musculoskeletal - generalized weakness Extremities - no edema Labs Laboratory Tests Test 01/14/21 09:55 01/14/21 11:43 01/14/21 16:42 01/14/21 20:50 White Blood Count 8.6 x10^3/uL (4.0-11.0) Red Blood Count 3.59 x10^6/uL (4.30-5.70) L Hemoglobin 10.0 g/dL (13.0-17.5) L Hematocrit 31.5 % (39.0-53.0) L Mean Corpuscular Volume 88 fL (79-100) Mean Corpuscular Hemoglobin 28 pg (25-35) Mean Corpuscular Hemoglobin Concent 32 g/dL (31-37) Red Cell Distribution Width 15.6 % (11.5-14.5) H Platelet Count 253 x10^3/uL (140-400) Neutrophils (%) (Auto) 58 % (31-73) Lymphocytes (%) (Auto) 24 % (24-48) Monocytes (%) (Auto) 10 % (0-9) H Eosinophils (%) (Auto) 8 % (0-3) H Basophils (%) (Auto) 1 % (0-3) Neutrophils # (Auto) 5.0 x10^3/uL (1.8-7.7) Lymphocytes # (Auto) 2.1 x10^3/uL (1.0-4.8) Monocytes # (Auto) 0.9 x10^3/uL (0.0-1.1) Eosinophils # (Auto) 0.6 x10^3/uL (0.0-0.7) Basophils # (Auto) 0.1 x10^3/uL (0.0-0.2) Sodium Level 134 mmol/L (136-145) L Potassium Level 5.6 mmol/L (3.5-5.1) H Chloride Level 99 mmol/L (98-107) Carbon Dioxide Level 30 mmol/L (21-32) Anion Gap 5 (6-14) L Blood Urea Nitrogen 20 mg/dL (8-26) Creatinine 0.9 mg/dL (0.7-1.3) Estimated GFR (Cockcroft-Gault) 109.0 BUN/Creatinine Ratio 22 (6-20) H Glucose Level 124 mg/dL (70-99) H Calcium Level 9.5 mg/dL (8.5-10.1) Total Bilirubin 0.4 mg/dL (0.2-1.0) Aspartate Amino Transferase (AST) 73 U/L (15-37) H Alanine Aminotransferase (ALT) 104 U/L (16-63) H Alkaline Phosphatase 517 U/L (46-116) H Total Protein 8.8 g/dL (6.4-8.2) H Albumin 2.8 g/dL (3.4-5.0) L Albumin/Globulin Ratio 0.5 (1.0-1.7) L Glucose (Fingerstick) 131 mg/dL (70-99) H 122 mg/dL (70-99) H 145 mg/dL (70-99) H Test 01/15/21 08:10 Glucose (Fingerstick) 111 mg/dL (70-99) H Laboratory Tests 01/14/21 09:55 Laboratory Tests 01/14/21 09:55 Assessment Assessment 1. Fever, etiology not clear. 2. Recent COVID-19 pneumonia. 3. Acute on chronic hypoxic respiratory failure, now on PMV with trach shield, weaned off ventilation. 4. Diabetes mellitus type 2 with neuropathy. 5. Trauma to left foot with partial avulsion of the left second toenail. 6. Congestive heart failure, both diastolic and systolic, currently chronic with ejection fraction of 20-30% and diastolic dysfunction. 7. Hypertension. 8. Anemia. 9. Recent acute kidney injury with chronic kidney disease. 10. Coronary artery disease. 11. Reflux esophagitis. 12. History of drug abuse and alcohol abuse in the past. 13. Bilateral knee osteoarthritis 14. Hyperlipidemia. 15. Severe noncompliance. 16. Super morbid obesity. 17. Anemia. 18. Recent acute metabolic encephalopathy. PLAN: Consult Dr. Harvey for pulmonary evaluation and management. Consult Dr. Duane Torres for Infectious Disease evaluation and because of the fever. The patient currently not on antibiotics. Discussed with social worker palliative care consider placing him in a shelter unit when possible. I will order urinalysis, urine culture and blood cultures. Monitor fever. For details, please refer to the orders. Fever resolved. D/w ,social worker palliative care. Continue PT OT consult Mohamud- toe injury. Overall improving. Awaiting transfer to a prison. There is a big shortage of tracheostomy beds in nursing homes. Please refer to the discharge summary for more details. Discharge management 35 minutes. Plan Plan For more details regarding further plans, please refer to the orders. Justifications for Admission Other Justification PADDY LINCOLN MD Jan 15, 2021 08:51
--- NOTE | 2021-01-15 08:51 | PDOC ---
Infectious Disease Note Subjective Subjective Patient without complaints Remains afebrile ROS ROS no n/v/d/ Vital Sign Vital Signs Vital Signs Date Time Temp Pulse Resp B/P (MAP) Pulse Ox O2 Delivery O2 Flow Rate FiO2 01/15/21 08:08 99 Tracheal Collar 8.0 01/15/21 03:54 98.4 85 20 145/82 (103) 98.4 Physical Exam PHYSICAL EXAM GENERAL: Alert, oriented x 3 male, lying in bed comfortably, in no acute distress. HEENT: Normocephalic, atraumatic. Anicteric. NECK: Supple, trach present LUNGS: Clear bilaterally. No wheezing. No accessory muscle use. HEART: S1, S2. No gallops or murmurs. ABDOMEN: Soft, nontender, nondistended, no rebound or guarding. EXTREMITIES: Trace edema. No clubbing, no cyanosis. Left second toenail off, base is clean. No paronychia, no swelling, no redness, no warmth. Mycotic toe nails present NEUROLOGIC: Alert and oriented x 3, grossly nonfocal. PSYCHIATRIC: Calm and cooperative. LINES: None. Labs Lab Laboratory Tests Test 01/14/21 09:55 01/14/21 11:43 01/14/21 16:42 01/14/21 20:50 White Blood Count 8.6 x10^3/uL (4.0-11.0) Red Blood Count 3.59 x10^6/uL (4.30-5.70) Hemoglobin 10.0 g/dL (13.0-17.5) Hematocrit 31.5 % (39.0-53.0) Mean Corpuscular Volume 88 fL (79-100) Mean Corpuscular Hemoglobin 28 pg (25-35) Mean Corpuscular Hemoglobin Concent 32 g/dL (31-37) Red Cell Distribution Width 15.6 % (11.5-14.5) Platelet Count 253 x10^3/uL (140-400) Neutrophils (%) (Auto) 58 % (31-73) Lymphocytes (%) (Auto) 24 % (24-48) Monocytes (%) (Auto) 10 % (0-9) Eosinophils (%) (Auto) 8 % (0-3) Basophils (%) (Auto) 1 % (0-3) Neutrophils # (Auto) 5.0 x10^3/uL (1.8-7.7) Lymphocytes # (Auto) 2.1 x10^3/uL (1.0-4.8) Monocytes # (Auto) 0.9 x10^3/uL (0.0-1.1) Eosinophils # (Auto) 0.6 x10^3/uL (0.0-0.7) Basophils # (Auto) 0.1 x10^3/uL (0.0-0.2) Sodium Level 134 mmol/L (136-145) Potassium Level 5.6 mmol/L (3.5-5.1) Chloride Level 99 mmol/L (98-107) Carbon Dioxide Level 30 mmol/L (21-32) Anion Gap 5 (6-14) Blood Urea Nitrogen 20 mg/dL (8-26) Creatinine 0.9 mg/dL (0.7-1.3) Estimated GFR (Cockcroft-Gault) 109.0 BUN/Creatinine Ratio 22 (6-20) Glucose Level 124 mg/dL (70-99) Calcium Level 9.5 mg/dL (8.5-10.1) Total Bilirubin 0.4 mg/dL (0.2-1.0) Aspartate Amino Transf (AST/SGOT) 73 U/L (15-37) Alanine Aminotransferase (ALT/SGPT) 104 U/L (16-63) Alkaline Phosphatase 517 U/L (46-116) Total Protein 8.8 g/dL (6.4-8.2) Albumin 2.8 g/dL (3.4-5.0) Albumin/Globulin Ratio 0.5 (1.0-1.7) Glucose (Fingerstick) 131 mg/dL (70-99) 122 mg/dL (70-99) 145 mg/dL (70-99) Test 01/15/21 08:10 Glucose (Fingerstick) 111 mg/dL (70-99) Micro Microbiology 01/08/21 Urine Culture - Final, Complete 01/08/21 Blood Culture - Final, Complete NO GROWTH AFTER 5 DAYS Objective Assessment 1. Low-grade fever, resolved. 2. Acute on chronic respiratory failure, multifactorial. 3. Status post tracheostomy. 4. History of COVID-19 pneumonia with prolonged hospitalization, status post intubation, now on trach. 5. Cardiomyopathy with chronic systolic heart failure. 6. Diabetes with neuropathy. 7. Left second toenail removed, no infection. Mycotic toenails debrided by podiatry 8. Hypertension. 9. Chronic kidney disease. 10. Status post percutaneous endoscopic gastrostomy removed on 12/20. 11. Morbid obesity. 12. History of polysubstance abuse. 13. Anemia. Plan Plan of Care 1. Monitor off antibiotics. 2. Continue supportive care. 3. Continue local wound care as directed. CUCO TRENT MD Jan 15, 2021 08:51
[2021-01-15] MEDS: PANTOPRAZOLE 40 MG TABLET.DR. PO SCH (09:37)
[2021-01-15] MEDS: METOPROLOL TART IMMED RELEASE 25 MG TABLET. PO SCH ×2 (09:37→21:42)
[2021-01-15] MEDS: GABAPENTIN 300 MG CAPSULE. PO SCH ×4 (09:37→21:42)
[2021-01-15] MEDS: QUEtiapine 100 MG TABLET. PO SCH ×3 (09:37→21:42)
[2021-01-15] MEDS: DULoxetine HCL 30 MG CAPSULE.DR PO SCH (09:37)
[2021-01-15] MEDS: busPIRone 5 MG TABLET. PO SCH ×3 (09:37→21:41)
[2021-01-15] MEDS: ASPIRIN ENTERIC COATED 81 MG TABLET.DR. PO SCH (09:38)
[2021-01-15] MEDS: MAGNESIUM OXIDE 400 MG TABLET PO SCH ×2 (09:38→21:40)
[2021-01-15] MEDS: buPROPion XL 150 MG TAB.ER.24H. PO SCH (09:38)
[2021-01-15] MEDS: SENNOSIDES/DOCUSATE 8.6/50MG TABLET. PO SCH ×2 (09:38→21:42)
[2021-01-15] MEDS: ISOSORBIDE MONONITRATE ER 30 MG TAB.ER.24H PO SCH (09:38)
[2021-01-15] MEDS: INSULIN GLARGINE SYRINGE. SQ SCH ×2 (09:41→21:41)
[2021-01-15] MEDS: FLUTICASONE 50MCG/NASAL SPRAY 16GM BOTTLE. NS SCH (09:44)
[2021-01-15 11:00] VITALS: BP 151/77
--- NOTE | 2021-01-15 11:09 | PDOC ---
PULMONARY PROGRESS NOTES DATE: 01/15/21 TIME: 11:08 Subjective Patient with no new complaints Trach in place with Passy-Grant valve Vitals Vital Signs Date Time Temp Pulse Resp B/P (MAP) Pulse Ox O2 Delivery O2 Flow Rate FiO2 01/15/21 09:38 93 150/91 01/15/21 08:08 99 Tracheal Collar 8.0 01/15/21 07:00 97.5 20 97.5 ROS: No Nausea, No Chest Pain, No Abdominal Pain, No Increase Cough General: Alert HEENT: Other Lungs: Clear, Crackles Cardiovascular: S1, S2 Abdomen: Soft, Non-tender Neuro Exam: Alert Extremities: Other Skin: Warm Labs Laboratory Tests Test 01/13/21 11:52 01/13/21 16:40 01/13/21 20:42 01/14/21 07:51 Glucose (Fingerstick) 157 mg/dL (70-99) 141 mg/dL (70-99) 146 mg/dL (70-99) 110 mg/dL (70-99) Test 01/14/21 09:55 01/14/21 11:43 01/14/21 16:42 01/14/21 20:50 White Blood Count 8.6 x10^3/uL (4.0-11.0) Red Blood Count 3.59 x10^6/uL (4.30-5.70) Hemoglobin 10.0 g/dL (13.0-17.5) Hematocrit 31.5 % (39.0-53.0) Mean Corpuscular Volume 88 fL (79-100) Mean Corpuscular Hemoglobin 28 pg (25-35) Mean Corpuscular Hemoglobin Concent 32 g/dL (31-37) Red Cell Distribution Width 15.6 % (11.5-14.5) Platelet Count 253 x10^3/uL (140-400) Neutrophils (%) (Auto) 58 % (31-73) Lymphocytes (%) (Auto) 24 % (24-48) Monocytes (%) (Auto) 10 % (0-9) Eosinophils (%) (Auto) 8 % (0-3) Basophils (%) (Auto) 1 % (0-3) Neutrophils # (Auto) 5.0 x10^3/uL (1.8-7.7) Lymphocytes # (Auto) 2.1 x10^3/uL (1.0-4.8) Monocytes # (Auto) 0.9 x10^3/uL (0.0-1.1) Eosinophils # (Auto) 0.6 x10^3/uL (0.0-0.7) Basophils # (Auto) 0.1 x10^3/uL (0.0-0.2) Sodium Level 134 mmol/L (136-145) Potassium Level 5.6 mmol/L (3.5-5.1) Chloride Level 99 mmol/L (98-107) Carbon Dioxide Level 30 mmol/L (21-32) Anion Gap 5 (6-14) Blood Urea Nitrogen 20 mg/dL (8-26) Creatinine 0.9 mg/dL (0.7-1.3) Estimated GFR (Cockcroft-Gault) 109.0 BUN/Creatinine Ratio 22 (6-20) Glucose Level 124 mg/dL (70-99) Calcium Level 9.5 mg/dL (8.5-10.1) Total Bilirubin 0.4 mg/dL (0.2-1.0) Aspartate Amino Transf (AST/SGOT) 73 U/L (15-37) Alanine Aminotransferase (ALT/SGPT) 104 U/L (16-63) Alkaline Phosphatase 517 U/L (46-116) Total Protein 8.8 g/dL (6.4-8.2) Albumin 2.8 g/dL (3.4-5.0) Albumin/Globulin Ratio 0.5 (1.0-1.7) Glucose (Fingerstick) 131 mg/dL (70-99) 122 mg/dL (70-99) 145 mg/dL (70-99) Test 01/15/21 08:10 Glucose (Fingerstick) 111 mg/dL (70-99) Laboratory Tests Test 01/14/21 11:43 01/14/21 16:42 01/14/21 20:50 01/15/21 08:10 Glucose (Fingerstick) 131 mg/dL (70-99) 122 mg/dL (70-99) 145 mg/dL (70-99) 111 mg/dL (70-99) Medications Active Scripts Medications Dose Route/Sig Max Daily Dose Days Date Category Glucagon Emergency Kit (Glucagon,Human Recombinant) 1 Mg Kit 1 Mg IM LOW BLOOD SUGAR 01/08/21 Reported Gabapentin (Gabapentin) 300 Mg Capsule 300 Mg PO QID 01/08/21 Reported Cymbalta (Duloxetine Hcl) 60 Mg Capsule.dr 1 Cap PO DAILY 01/08/21 Reported Heparin 2,000 Unit/2 Ml Vial (Heparin Sodium,Porcine/Pf) 1,000 Unit/1 Ml Vial 5,000 Unit IJ Q8HRS 01/08/21 Reported Isosorbide Mononitrate Er (Isosorbide Mononitrate) 30 Mg Tab.er.24h 1 Tab PO DAILY 01/08/21 Reported Clonazepam 1 Mg Tablet 0.5 Mg PO PRN BID PRN 01/08/21 Reported Magnesium Oxide 400 Mg Tablet 2 Tab PO BID 01/08/21 Reported Lantus Solostar (Insulin Glargine,Hum.rec.anlog) 100 Unit/1 Ml Insuln.pen 34 Unit SQ BID 01/08/21 Reported Melatonin 3 Mg Tab.rapdis 2 Tab PO QHS 30 01/08/21 Reported Oxycodone Hcl Immed.release (Oxycodone Hcl) 15 Mg Tablet 15 Mg PO PRN Q6HRS PRN 01/08/21 Reported Flonase Allergy Relief (Fluticasone Propionate) 9.9 Ml [place].susp 2 Sprays NS DAILY 01/08/21 Reported Seroquel (Quetiapine Fumarate) 100 Mg Tablet 100 Mg PO TID 01/08/21 Reported Protonix (Pantoprazole Sodium) 40 Mg Tablet.dr 40 Mg PO DAILYAC 01/08/21 Reported Buspirone Hcl 5 Mg Tablet 1 Tab PO TID 01/08/21 Reported Senokot-S Tablet (Sennosides/Docusate Sodium) 1 Each Tablet 2 Tab PO BID 30 01/08/21 Reported Metoprolol Tartrate 25 Mg Tablet 1 Tab PO BID 01/08/21 Reported Wellbutrin Xl (Bupropion Hcl) 300 Mg Tab.er.24h 1 Tab PO DAILY 01/19/18 Rx Duoneb 0.5-3(2.5) Mg/3 Ml (Albuterol/Ipratropium) 3 Ml Ampul.neb 3 Ml NEB RTQID 30 01/19/18 Rx Singulair Tablet (Montelukast Sodium) 10 Mg Tablet 10 Mg PO HS 01/15/18 Reported Aspirin Ec (Aspirin) 81 Mg Tablet. 81 Mg PO DAILYWBKFT 04/04/17 Rx Impression . IMPRESSION: 1. Acute on chronic respiratory failure, multifactorial. 2. Status post tracheostomy. 3. COVID-19 pneumonia, initially hospitalized on the 16 of October, complicated with respiratory failure requiring intubation. 4. Cardiomyopathy, ejection fraction 20-25%, chronic systolic heart failure. 5. Diabetes. 6. Hypertension. 7. Chronic anemia. 8. Chronic kidney disease. 9. Status post PEG, removed on the 20 of December. 10. History of polysubstance use. 11. Morbid obesity. Plan . Nocturnal desat study noted Continue oxygen supplementation nightly Placement is an issue PHILIP CABALLERO MD Jan 15, 2021 11:09
--- NOTE | 2021-01-15 13:05 | NUR ---
SW following. Discussed with RN, SW attempting to find placement for pt, but struggling due to trach bed availability. SW to send updated therapy notes to [facility]. SW will continue to follow.
[2021-01-15 15:00] VITALS: BP 138/79
[2021-01-15 19:00] VITALS: BP 104/65
[2021-01-15] MEDS: MONTELUKAST SODIUM 10 MG TABLET. PO SCH (21:42)
[2021-01-15 23:00] VITALS: BP 133/82
[2021-01-16 03:00] VITALS: BP 145/80
[2021-01-16] MEDS: HEPARIN for SUB-Q USE 5,000 UNIT/ML VIAL. SQ SCH ×3 (05:40→20:35)
[2021-01-16 07:00] VITALS: BP 141/81
[2021-01-16] MEDS: IPRATRPIUM/ALBUTEROL 0.5/2.5MG 3 ML NEBU. NEB SCH ×4 (08:02→20:43)
[2021-01-16] MEDS: buPROPion XL 150 MG TAB.ER.24H. PO SCH (08:24)
[2021-01-16] MEDS: SENNOSIDES/DOCUSATE 8.6/50MG TABLET. PO SCH ×2 (08:24→20:19)
[2021-01-16] MEDS: ASPIRIN ENTERIC COATED 81 MG TABLET.DR. PO SCH (08:24)
[2021-01-16] MEDS: PANTOPRAZOLE 40 MG TABLET.DR. PO SCH (08:24)
[2021-01-16] MEDS: FLUTICASONE 50MCG/NASAL SPRAY 16GM BOTTLE. NS SCH (08:24)
[2021-01-16] MEDS: DULoxetine HCL 30 MG CAPSULE.DR PO SCH (08:25)
[2021-01-16] MEDS: MAGNESIUM OXIDE 400 MG TABLET PO SCH ×2 (08:25→20:20)
[2021-01-16] MEDS: GABAPENTIN 300 MG CAPSULE. PO SCH ×4 (08:25→20:19)
[2021-01-16] MEDS: QUEtiapine 100 MG TABLET. PO SCH ×3 (08:25→20:19)
[2021-01-16] MEDS: ISOSORBIDE MONONITRATE ER 30 MG TAB.ER.24H PO SCH (08:25)
[2021-01-16] MEDS: busPIRone 5 MG TABLET. PO SCH ×3 (08:26→20:20)
[2021-01-16] MEDS: METOPROLOL TART IMMED RELEASE 25 MG TABLET. PO SCH ×2 (08:26→20:20)
--- NOTE | 2021-01-16 08:27 | PDOC ---
IM PROGRESS NOTES- Subjective Subjective No pain,dyspnea. Objective Vitals/I&O Vital Signs Date Time Temp Pulse Resp B/P (MAP) Pulse Ox O2 Delivery O2 Flow Rate FiO2 01/16/21 08:03 99 Tracheal Collar 8.0 01/16/21 03:00 98.0 87 16 145/80 (101) 98.0 I & O 01/15/21 01/15/21 01/16/21 15:00 23:00 07:00 Intake Total 480 ml 200 ml 120 ml Output Total 1050 ml Balance -570 ml 200 ml 120 ml Physical Exam Physical Exam General Appearance - alert and in no distress Chest - decreased breath sounds at bases Heart - S1 and S2 normal Abdomen - soft, non tender Neurological - alert and oriented Musculoskeletal - generalized weakness Extremities - no edema Labs Laboratory Tests Test 01/15/21 11:51 01/15/21 17:05 01/15/21 20:38 01/16/21 08:08 Glucose (Fingerstick) 125 mg/dL (70-99) H 113 mg/dL (70-99) H 122 mg/dL (70-99) H 106 mg/dL (70-99) H Assessment Assessment 1. Fever, etiology not clear. 2. Recent COVID-19 pneumonia. 3. Acute on chronic hypoxic respiratory failure, now on PMV with trach shield, weaned off ventilation. 4. Diabetes mellitus type 2 with neuropathy. 5. Trauma to left foot with partial avulsion of the left second toenail. 6. Congestive heart failure, both diastolic and systolic, currently chronic with ejection fraction of 20-30% and diastolic dysfunction. 7. Hypertension. 8. Anemia. 9. Recent acute kidney injury with chronic kidney disease. 10. Coronary artery disease. 11. Reflux esophagitis. 12. History of drug abuse and alcohol abuse in the past. 13. Bilateral knee osteoarthritis 14. Hyperlipidemia. 15. Severe noncompliance. 16. Super morbid obesity. 17. Anemia. 18. Recent acute metabolic encephalopathy. PLAN: Consult Dr. Harvey for pulmonary evaluation and management. Consult Dr. Duane Torres for Infectious Disease evaluation and because of the fever. The patient currently not on antibiotics. Discussed with social media sr strategy manager consider placing him in a correction unit when possible. I will order urinalysis, urine culture and blood cultures. Monitor fever. For details, please refer to the orders. Fever resolved. consult Dr. Mohamud- toe injury. Overall improving. Awaiting transfer to a long-term. There is a big shortage of tracheostomy beds in nursing homes. Physical deconditioning with neuropathy-continue PT OT. Please refer to the discharge summary for more details. Discharge management 35 minutes. Plan Plan For more details regarding further plans, please refer to the orders. Justifications for Admission Other Justification PADDY LINCOLN MD Jan 16, 2021 08:27
[2021-01-16] MEDS: oxyCODONE IR 5 MG TABLET PO PRN (08:28)
--- NOTE | 2021-01-16 08:50 | PDOC ---
PULMONARY PROGRESS NOTES DATE: 01/16/21 TIME: 08:50 Subjective Patient with no new complaints Trach in place with Passy-Iraan valve Vitals Vital Signs Date Time Temp Pulse Resp B/P (MAP) Pulse Ox O2 Delivery O2 Flow Rate FiO2 01/16/21 08:28 Tracheal Collar 8.0 01/16/21 08:26 87 145/80 01/16/21 08:03 99 01/16/21 07:00 98.6 16 98.6 ROS: No Nausea, No Chest Pain, No Abdominal Pain, No Increase Cough General: Alert HEENT: Other Lungs: Clear, Crackles Cardiovascular: S1, S2 Abdomen: Soft, Non-tender Neuro Exam: Alert Extremities: Other Skin: Warm Labs Laboratory Tests Test 01/14/21 09:55 01/14/21 11:43 01/14/21 16:42 01/14/21 20:50 White Blood Count 8.6 x10^3/uL (4.0-11.0) Red Blood Count 3.59 x10^6/uL (4.30-5.70) Hemoglobin 10.0 g/dL (13.0-17.5) Hematocrit 31.5 % (39.0-53.0) Mean Corpuscular Volume 88 fL (79-100) Mean Corpuscular Hemoglobin 28 pg (25-35) Mean Corpuscular Hemoglobin Concent 32 g/dL (31-37) Red Cell Distribution Width 15.6 % (11.5-14.5) Platelet Count 253 x10^3/uL (140-400) Neutrophils (%) (Auto) 58 % (31-73) Lymphocytes (%) (Auto) 24 % (24-48) Monocytes (%) (Auto) 10 % (0-9) Eosinophils (%) (Auto) 8 % (0-3) Basophils (%) (Auto) 1 % (0-3) Neutrophils # (Auto) 5.0 x10^3/uL (1.8-7.7) Lymphocytes # (Auto) 2.1 x10^3/uL (1.0-4.8) Monocytes # (Auto) 0.9 x10^3/uL (0.0-1.1) Eosinophils # (Auto) 0.6 x10^3/uL (0.0-0.7) Basophils # (Auto) 0.1 x10^3/uL (0.0-0.2) Sodium Level 134 mmol/L (136-145) Potassium Level 5.6 mmol/L (3.5-5.1) Chloride Level 99 mmol/L (98-107) Carbon Dioxide Level 30 mmol/L (21-32) Anion Gap 5 (6-14) Blood Urea Nitrogen 20 mg/dL (8-26) Creatinine 0.9 mg/dL (0.7-1.3) Estimated GFR (Cockcroft-Gault) 109.0 BUN/Creatinine Ratio 22 (6-20) Glucose Level 124 mg/dL (70-99) Calcium Level 9.5 mg/dL (8.5-10.1) Total Bilirubin 0.4 mg/dL (0.2-1.0) Aspartate Amino Transf (AST/SGOT) 73 U/L (15-37) Alanine Aminotransferase (ALT/SGPT) 104 U/L (16-63) Alkaline Phosphatase 517 U/L (46-116) Total Protein 8.8 g/dL (6.4-8.2) Albumin 2.8 g/dL (3.4-5.0) Albumin/Globulin Ratio 0.5 (1.0-1.7) Glucose (Fingerstick) 131 mg/dL (70-99) 122 mg/dL (70-99) 145 mg/dL (70-99) Test 01/15/21 08:10 01/15/21 11:51 01/15/21 17:05 01/15/21 20:38 Glucose (Fingerstick) 111 mg/dL (70-99) 125 mg/dL (70-99) 113 mg/dL (70-99) 122 mg/dL (70-99) Test 01/16/21 08:08 Glucose (Fingerstick) 106 mg/dL (70-99) Laboratory Tests Test 01/15/21 11:51 01/15/21 17:05 01/15/21 20:38 01/16/21 08:08 Glucose (Fingerstick) 125 mg/dL (70-99) 113 mg/dL (70-99) 122 mg/dL (70-99) 106 mg/dL (70-99) Medications Active Scripts Medications Dose Route/Sig Max Daily Dose Days Date Category Glucagon Emergency Kit (Glucagon,Human Recombinant) 1 Mg Kit 1 Mg IM LOW BLOOD SUGAR 01/08/21 Reported Gabapentin (Gabapentin) 300 Mg Capsule 300 Mg PO QID 01/08/21 Reported Cymbalta (Duloxetine Hcl) 60 Mg Capsule.dr 1 Cap PO DAILY 01/08/21 Reported Heparin 2,000 Unit/2 Ml Vial (Heparin Sodium,Porcine/Pf) 1,000 Unit/1 Ml Vial 5,000 Unit IJ Q8HRS 01/08/21 Reported Isosorbide Mononitrate Er (Isosorbide Mononitrate) 30 Mg Tab.er.24h 1 Tab PO DAILY 01/08/21 Reported Clonazepam 1 Mg Tablet 0.5 Mg PO PRN BID PRN 01/08/21 Reported Magnesium Oxide 400 Mg Tablet 2 Tab PO BID 01/08/21 Reported Lantus Solostar (Insulin Glargine,Hum.rec.anlog) 100 Unit/1 Ml Insuln.pen 34 Unit SQ BID 01/08/21 Reported Melatonin 3 Mg Tab.rapdis 2 Tab PO QHS 30 01/08/21 Reported Oxycodone Hcl Immed.release (Oxycodone Hcl) 15 Mg Tablet 15 Mg PO PRN Q6HRS PRN 01/08/21 Reported Flonase Allergy Relief (Fluticasone Propionate) 9.9 Ml [place].susp 2 Sprays NS DAILY 01/08/21 Reported Seroquel (Quetiapine Fumarate) 100 Mg Tablet 100 Mg PO TID 01/08/21 Reported Protonix (Pantoprazole Sodium) 40 Mg Tablet. 40 Mg PO DAILYAC 01/08/21 Reported Buspirone Hcl 5 Mg Tablet 1 Tab PO TID 01/08/21 Reported Senokot-S Tablet (Sennosides/Docusate Sodium) 1 Each Tablet 2 Tab PO BID 30 01/08/21 Reported Metoprolol Tartrate 25 Mg Tablet 1 Tab PO BID 01/08/21 Reported Wellbutrin Xl (Bupropion Hcl) 300 Mg Tab.er.24h 1 Tab PO DAILY 01/19/18 Rx Duoneb 0.5-3(2.5) Mg/3 Ml (Albuterol/Ipratropium) 3 Ml Ampul.neb 3 Ml NEB RTQID 30 01/19/18 Rx Singulair Tablet (Montelukast Sodium) 10 Mg Tablet 10 Mg PO HS 10/11/18 Reported Aspirin Ec (Aspirin) 81 Mg Tablet. 81 Mg PO DAILYWBKFT 04/04/17 Rx Impression . IMPRESSION: 1. Acute on chronic respiratory failure, multifactorial. 2. Status post tracheostomy. 3. COVID-19 pneumonia, initially hospitalized on the 16 of October, complicated with respiratory failure requiring intubation. 4. Cardiomyopathy, ejection fraction 20-25%, chronic systolic heart failure. 5. Diabetes. 6. Hypertension. 7. Chronic anemia. 8. Chronic kidney disease. 9. Status post PEG, removed on the 20 of December. 10. History of polysubstance use. 11. Morbid obesity. Plan . Updated 01/18 Continue oxygen supplementation Patient not a candidate for decannulation We will sign off call if needed PHILIP CABALLERO MD Jan 16, 2021 08:50
--- NOTE | 2021-01-16 09:16 | PDOC ---
Infectious Disease Note Subjective Subjective Patient without complaints Remains afebrile ROS ROS no n/v/d/ Vital Sign Vital Signs Vital Signs Date Time Temp Pulse Resp B/P (MAP) Pulse Ox O2 Delivery O2 Flow Rate FiO2 01/16/21 08:28 Tracheal Collar 8.0 01/16/21 08:26 87 145/80 01/16/21 08:03 99 01/16/21 07:00 98.6 16 98.6 Physical Exam PHYSICAL EXAM GENERAL: Alert, oriented x 3 male, lying in bed comfortably, in no acute distress. HEENT: Normocephalic, atraumatic. Anicteric. NECK: Supple, trach present LUNGS: Clear bilaterally. No wheezing. No accessory muscle use. HEART: S1, S2. No gallops or murmurs. ABDOMEN: Soft, nontender, nondistended, no rebound or guarding. EXTREMITIES: Trace edema. No clubbing, no cyanosis. Left second toenail off, base is clean. No paronychia, no swelling, no redness, no warmth. Mycotic toe nails present NEUROLOGIC: Alert and oriented x 3, grossly nonfocal. PSYCHIATRIC: Calm and cooperative. LINES: None. Labs Lab Laboratory Tests Test 01/15/21 11:51 01/15/21 17:05 01/15/21 20:38 01/16/21 08:08 Glucose (Fingerstick) 125 mg/dL (70-99) 113 mg/dL (70-99) 122 mg/dL (70-99) 106 mg/dL (70-99) Micro Microbiology 01/08/21 Urine Culture - Final, Complete 01/08/21 Blood Culture - Final, Complete NO GROWTH AFTER 5 DAYS Objective Assessment 1. Low-grade fever, resolved. 2. Acute on chronic respiratory failure, multifactorial. 3. Status post tracheostomy. 4. History of COVID-19 pneumonia with prolonged hospitalization, status post intubation, now on trach. 5. Cardiomyopathy with chronic systolic heart failure. 6. Diabetes with neuropathy. 7. Left second toenail removed, no infection. Mycotic toenails debrided by podiatry 8. Hypertension. 9. Chronic kidney disease. 10. Status post percutaneous endoscopic gastrostomy removed on 12/20. 11. Morbid obesity. 12. History of polysubstance abuse. 13. Anemia. Plan Plan of Care 1. Monitor off antibiotics. 2. Continue supportive care. 3. Continue local wound care as directed. will s/o , please call if questions CUCO TRENT MD Jan 16, 2021 09:16
[2021-01-16 10:41] VITALS: BP 123/76
[2021-01-16] MEDS: INSULIN GLARGINE SYRINGE. SQ SCH ×2 (10:59→20:35)
--- NOTE | 2021-01-16 14:24 | NUR ---
Wound Care: Patient seen per wound care for follow up of left 2nd toenail DFU, the wound is now resolved. A bandaid was placed for protection. No other wounds noted. Wound care will sign off at this time. Please re consult with any changes regarding wound care. Bed lowered and call light in reach.
[2021-01-16 15:00] VITALS: BP 81/48
[2021-01-16 19:00] VITALS: BP 102/54
[2021-01-16] MEDS: MONTELUKAST SODIUM 10 MG TABLET. PO SCH (20:19)
[2021-01-16 23:08] VITALS: BP 108/58
[2021-01-17 03:11] VITALS: BP 135/68
[2021-01-17] MEDS: HEPARIN for SUB-Q USE 5,000 UNIT/ML VIAL. SQ SCH ×3 (06:20→22:12)
[2021-01-17 07:00] VITALS: BP 153/76
[2021-01-17] MEDS: IPRATRPIUM/ALBUTEROL 0.5/2.5MG 3 ML NEBU. NEB SCH ×4 (07:49→19:51)
[2021-01-17] MEDS: GABAPENTIN 300 MG CAPSULE. PO SCH ×4 (08:23→22:10)
[2021-01-17] MEDS: SENNOSIDES/DOCUSATE 8.6/50MG TABLET. PO SCH ×2 (08:23→22:10)
[2021-01-17] MEDS: MAGNESIUM OXIDE 400 MG TABLET PO SCH ×2 (08:23→22:10)
[2021-01-17] MEDS: PANTOPRAZOLE 40 MG TABLET.DR. PO SCH (08:24)
[2021-01-17] MEDS: METOPROLOL TART IMMED RELEASE 25 MG TABLET. PO SCH ×2 (08:24→22:11)
[2021-01-17] MEDS: ASPIRIN ENTERIC COATED 81 MG TABLET.DR. PO SCH (08:24)
[2021-01-17] MEDS: DULoxetine HCL 30 MG CAPSULE.DR PO SCH (08:24)
[2021-01-17] MEDS: busPIRone 5 MG TABLET. PO SCH ×3 (08:24→22:09)
[2021-01-17] MEDS: ISOSORBIDE MONONITRATE ER 30 MG TAB.ER.24H PO SCH (08:25)
[2021-01-17] MEDS: QUEtiapine 100 MG TABLET. PO SCH ×3 (08:25→22:10)
[2021-01-17] MEDS: buPROPion XL 150 MG TAB.ER.24H. PO SCH (08:25)
[2021-01-17] MEDS: FLUTICASONE 50MCG/NASAL SPRAY 16GM BOTTLE. NS SCH (08:26)
--- NOTE | 2021-01-17 09:08 | PDOC ---
IM PROGRESS NOTES- Subjective Subjective No pain,dyspnea. Objective Vitals/I&O Vital Signs Date Time Temp Pulse Resp B/P (MAP) Pulse Ox O2 Delivery O2 Flow Rate FiO2 01/17/21 08:25 82 153/76 01/17/21 07:49 95 Tracheal Collar 10.0 01/17/21 07:00 98.2 20 98.2 I & O 01/16/21 01/16/21 01/17/21 15:00 23:00 07:00 Intake Total 540 ml 240 ml Output Total 500 ml 0 ml Balance 40 ml 240 ml 0 ml Physical Exam Physical Exam General Appearance - alert and in no distress Chest - decreased breath sounds at bases Patient has a tracheostomy tube with PMV and trach shield. Heart - S1 and S2 normal Abdomen - soft, non tender Neurological - alert and oriented Musculoskeletal - generalized weakness Extremities - no edema Labs Laboratory Tests Test 01/16/21 11:44 01/16/21 16:47 01/16/21 20:25 01/17/21 07:37 Glucose (Fingerstick) 166 mg/dL (70-99) H 134 mg/dL (70-99) H 169 mg/dL (70-99) H 139 mg/dL (70-99) H Assessment Assessment 1. Fever, etiology not clear. 2. Recent COVID-19 pneumonia. 3. Acute on chronic hypoxic respiratory failure, now on PMV with trach shield, weaned off ventilation. 4. Diabetes mellitus type 2 with neuropathy. 5. Trauma to left foot with partial avulsion of the left second toenail. 6. Congestive heart failure, both diastolic and systolic, currently chronic with ejection fraction of 20-30% and diastolic dysfunction. 7. Hypertension. 8. Anemia. 9. Recent acute kidney injury with chronic kidney disease. 10. Coronary artery disease. 11. Reflux esophagitis. 12. History of drug abuse and alcohol abuse in the past. 13. Bilateral knee osteoarthritis 14. Hyperlipidemia. 15. Severe noncompliance. 16. Super morbid obesity. 17. Anemia. 18. Recent acute metabolic encephalopathy. PLAN: Consult Dr. Harvey for pulmonary evaluation and management. Consult Dr. Duane Torres for Infectious Disease evaluation and because of the fever. The patient currently not on antibiotics. Discussed with social science analyst consider placing him in a intermediate unit when possible. I will order urinalysis, urine culture and blood cultures. Monitor fever. For details, please refer to the orders. Fever resolved. consult Dr. Mohamud- toe injury. Overall improving. Awaiting transfer to a detention. There is a big shortage of tracheostomy beds in nursing homes. Physical deconditioning with neuropathy-continue PT OT. Check labs in a.m. Please refer to the discharge summary for more details. Discharge management 35 minutes. Plan Plan For more details regarding further plans, please refer to the orders. Justifications for Admission Other Justification PADDY LINCOLN MD Jan 17, 2021 09:08
[2021-01-17] MEDS: INSULIN GLARGINE SYRINGE. SQ SCH ×2 (10:12→22:13)
[2021-01-17 11:00] VITALS: BP 107/64
[2021-01-17 15:00] VITALS: BP 129/67
[2021-01-17 19:00] VITALS: BP 122/75
[2021-01-17] MEDS: MONTELUKAST SODIUM 10 MG TABLET. PO SCH (22:10)
[2021-01-17] MEDS: oxyCODONE IR 5 MG TABLET PO PRN (22:27)
[2021-01-17 23:39] VITALS: BP 126/81
[2021-01-18 03:42] VITALS: BP 109/53
[2021-01-18] MEDS: HEPARIN for SUB-Q USE 5,000 UNIT/ML VIAL. SQ SCH ×3 (05:32→21:42)
[2021-01-18] MEDS: PANTOPRAZOLE 40 MG TABLET.DR. PO SCH (06:20)
[2021-01-18 07:00] VITALS: BP 108/57
[2021-01-18] MEDS: IPRATRPIUM/ALBUTEROL 0.5/2.5MG 3 ML NEBU. NEB SCH ×4 (08:06→20:01)
[2021-01-18 08:43] LABS: BASO # 0.1 x10^3/uL (0.0-0.2); BASO % 1 % (0-3); EOS # 0.6 x10^3/uL (0.0-0.7); EOS % 7 % (0-3); HEMATOCRIT 31.1 % (39.0-53.0); HEMOGLOBIN 10.1 g/dL (13.0-17.5); LYMPH # 2.9 x10^3/uL (1.0-4.8); LYMPH % 34 % (24-48); MEAN CORPUSCULAR HEMOGLOBIN 29 pg (25-35); MEAN CORPUSCULAR HGB CONC 32 g/dL (31-37); MEAN CORPUSCULAR VOLUME 88 fL (79-100); MONO % 11 % (0-9); NEUT % 47 % (31-73); PLATELET COUNT 236 x10^3/uL (140-400); RED BLOOD COUNT 3.53 x10^6/uL (4.30-5.70); RED CELL DISTRIBUTION WIDTH 15.8 % (11.5-14.5); WHITE BLOOD COUNT 8.5 x10^3/uL (4.0-11.0)
[2021-01-18] MEDS: MAGNESIUM OXIDE 400 MG TABLET PO SCH ×2 (09:15→21:30)
[2021-01-18] MEDS: busPIRone 5 MG TABLET. PO SCH ×3 (09:15→21:31)
[2021-01-18 09:17] LABS: ALBUMIN 2.9 g/dL (3.4-5.0); ALBUMIN/GLOBULIN RATIO 0.5 (1.0-1.7); CALCIUM 9.3 mg/dL (8.5-10.1); CREATININE 1.1 mg/dL (0.7-1.3); GFR 86.4; POTASSIUM 5.2 mmol/L (3.5-5.1); TOTAL BILIRUBIN 0.4 mg/dL (0.2-1.0); TOTAL PROTEIN 8.9 g/dL (6.4-8.2)
[2021-01-18] MEDS: DULoxetine HCL 30 MG CAPSULE.DR PO SCH (09:17)
[2021-01-18] MEDS: buPROPion XL 150 MG TAB.ER.24H. PO SCH (09:17)
[2021-01-18] MEDS: oxyCODONE IR 5 MG TABLET PO PRN (09:17)
[2021-01-18] MEDS: ISOSORBIDE MONONITRATE ER 30 MG TAB.ER.24H PO SCH (09:18)
[2021-01-18] MEDS: ASPIRIN ENTERIC COATED 81 MG TABLET.DR. PO SCH (09:18)
[2021-01-18] MEDS: GABAPENTIN 300 MG CAPSULE. PO SCH ×3 (09:18→21:31)
[2021-01-18] MEDS: METOPROLOL TART IMMED RELEASE 25 MG TABLET. PO SCH ×2 (09:18→21:31)
[2021-01-18] MEDS: QUEtiapine 100 MG TABLET. PO SCH ×3 (09:18→21:30)
[2021-01-18] MEDS: SENNOSIDES/DOCUSATE 8.6/50MG TABLET. PO SCH ×2 (09:19→21:30)
[2021-01-18] MEDS: FLUTICASONE 50MCG/NASAL SPRAY 16GM BOTTLE. NS SCH (09:21)
[2021-01-18] MEDS: INSULIN GLARGINE SYRINGE. SQ SCH ×2 (09:24→21:42)
--- NOTE | 2021-01-18 09:46 | PDOC ---
IM PROGRESS NOTES- Subjective Subjective No pain,dyspnea. Objective Vitals/I&O Vital Signs Date Time Temp Pulse Resp B/P (MAP) Pulse Ox O2 Delivery O2 Flow Rate FiO2 01/18/21 09:18 76 108/57 01/18/21 08:08 98 Tracheal Collar 10.0 01/18/21 07:00 98.0 22 98.0 I & O 01/17/21 01/17/21 01/18/21 15:00 23:00 07:00 Intake Total 320 ml 1040 ml 400 ml Output Total 850 ml Balance -530 ml 1040 ml 400 ml Physical Exam Physical Exam General Appearance - alert and in no distress Chest - decreased breath sounds at bases Heart - S1 and S2 normal Abdomen - soft, non tender Neurological - alert and oriented Musculoskeletal - generalized weakness Extremities - no edema Labs Laboratory Tests Test 01/17/21 11:42 01/17/21 16:53 01/17/21 19:21 01/18/21 07:20 Glucose (Fingerstick) 198 mg/dL (70-99) H 160 mg/dL (70-99) H 161 mg/dL (70-99) H White Blood Count 8.5 x10^3/uL (4.0-11.0) Red Blood Count 3.53 x10^6/uL (4.30-5.70) L Hemoglobin 10.1 g/dL (13.0-17.5) L Hematocrit 31.1 % (39.0-53.0) L Mean Corpuscular Volume 88 fL (79-100) Mean Corpuscular Hemoglobin 29 pg (25-35) Mean Corpuscular Hemoglobin Concent 32 g/dL (31-37) Red Cell Distribution Width 15.8 % (11.5-14.5) H Platelet Count 236 x10^3/uL (140-400) Neutrophils (%) (Auto) 47 % (31-73) Lymphocytes (%) (Auto) 34 % (24-48) Monocytes (%) (Auto) 11 % (0-9) H Eosinophils (%) (Auto) 7 % (0-3) H Basophils (%) (Auto) 1 % (0-3) Neutrophils # (Auto) 4.0 x10^3/uL (1.8-7.7) Lymphocytes # (Auto) 2.9 x10^3/uL (1.0-4.8) Monocytes # (Auto) 1.0 x10^3/uL (0.0-1.1) Eosinophils # (Auto) 0.6 x10^3/uL (0.0-0.7) Basophils # (Auto) 0.1 x10^3/uL (0.0-0.2) Sodium Level 135 mmol/L (136-145) L Potassium Level 5.2 mmol/L (3.5-5.1) H Chloride Level 100 mmol/L (98-107) Carbon Dioxide Level 31 mmol/L (21-32) Anion Gap 4 (6-14) L Blood Urea Nitrogen 29 mg/dL (8-26) H Creatinine 1.1 mg/dL (0.7-1.3) Estimated GFR (Cockcroft-Gault) 86.4 BUN/Creatinine Ratio 26 (6-20) H Glucose Level 91 mg/dL (70-99) Calcium Level 9.3 mg/dL (8.5-10.1) Total Bilirubin 0.4 mg/dL (0.2-1.0) Aspartate Amino Transferase (AST) 83 U/L (15-37) H Alanine Aminotransferase (ALT) 127 U/L (16-63) H Alkaline Phosphatase 557 U/L (46-116) H Total Protein 8.9 g/dL (6.4-8.2) H Albumin 2.9 g/dL (3.4-5.0) L Albumin/Globulin Ratio 0.5 (1.0-1.7) L Test 01/18/21 07:28 Glucose (Fingerstick) 99 mg/dL (70-99) Laboratory Tests 01/18/21 07:20 Laboratory Tests 01/18/21 07:20 Assessment Assessment 1. Fever, etiology not clear. 2. Recent COVID-19 pneumonia. 3. Acute on chronic hypoxic respiratory failure, now on PMV with trach shield, weaned off ventilation. 4. Diabetes mellitus type 2 with neuropathy. 5. Trauma to left foot with partial avulsion of the left second toenail. 6. Congestive heart failure, both diastolic and systolic, currently chronic with ejection fraction of 20-30% and diastolic dysfunction. 7. Hypertension. 8. Anemia. 9. Recent acute kidney injury with chronic kidney disease. 10. Coronary artery disease. 11. Reflux esophagitis. 12. History of drug abuse and alcohol abuse in the past. 13. Bilateral knee osteoarthritis 14. Hyperlipidemia. 15. Severe noncompliance. 16. Super morbid obesity. 17. Anemia. 18. Recent acute metabolic encephalopathy. PLAN: Consult Dr. Harvey for pulmonary evaluation and management. Consult Dr. Duane Torres for Infectious Disease evaluation and because of the fever. The patient currently not on antibiotics. Discussed with criminal justice social worker consider placing him in a residential unit when possible. I will order urinalysis, urine culture and blood cultures. Monitor fever. For details, please refer to the orders. Fever resolved. consult Dr. Mohamud- toe injury. Overall improving. Awaiting transfer to a [facility]. There is a big shortage of tracheostomy beds in nursing homes. Physical deconditioning with neuropathy-continue PT OT. Renal function and hyperkalemia are improving. Elevated LFTs no significant change. Please refer to the discharge summary for more details. Discharge management 35 minutes. Plan Plan For more details regarding further plans, please refer to the orders. Justifications for Admission Other Justification PADDY LINCOLN MD Jan 18, 2021 09:46
[2021-01-18 11:00] VITALS: BP 102/50
--- NOTE | 2021-01-18 14:36 | NUR ---
JOSE DANIEL following. Discussed with RN, [facility] have declined to take pt as they do not think he can tolerate 3 hours of therapy a day. JOSE DANIEL faxed referral to [facility] despite there being no available beds. JOSE DANIEL also requested Aishwarya notify JOSE DANIEL when there is an open trach bed. JOSE DANIEL wondering if [facility] in [place] takes trachs - however so far have been unable to reach this facility. JOSE DANIEL will continue to follow. Addendum: 01/18/21 at 1615 by LA NENA SKY [facility] stated they cannot even look at pt due to having no beds, and no upcoming discharges. JOSE DANIEL plans to call each week to determine bed availability.
[2021-01-18 15:10] VITALS: BP 113/62
[2021-01-18 19:00] VITALS: BP 125/63
[2021-01-18] MEDS: MONTELUKAST SODIUM 10 MG TABLET. PO SCH (21:30)
[2021-01-18] MEDS: clonazePAM 0.5 MG TABLET PO PRN (21:31)
[2021-01-18 23:21] VITALS: BP 122/57
[2021-01-19 03:30] VITALS: BP 103/59
[2021-01-19] MEDS: HEPARIN for SUB-Q USE 5,000 UNIT/ML VIAL. SQ SCH ×3 (06:04→22:55)
[2021-01-19 07:00] VITALS: BP 140/70
[2021-01-19] MEDS: IPRATRPIUM/ALBUTEROL 0.5/2.5MG 3 ML NEBU. NEB SCH ×4 (07:50→18:14)
[2021-01-19] MEDS: PANTOPRAZOLE 40 MG TABLET.DR. PO SCH (07:58)
--- NOTE | 2021-01-19 08:59 | PDOC ---
IM PROGRESS NOTES- Subjective Subjective No pain,dyspnea. Objective Vitals/I&O Vital Signs Date Time Temp Pulse Resp B/P (MAP) Pulse Ox O2 Delivery O2 Flow Rate FiO2 01/19/21 07:46 95 Tracheal Collar 8.0 01/19/21 07:00 98.0 75 20 140/70 (93) 98.0 I & O 01/18/21 01/18/21 01/19/21 15:00 23:00 07:00 Intake Total 400 ml 200 ml 720 ml Output Total 925 ml Balance -525 ml 200 ml 720 ml Physical Exam Physical Exam General Appearance - alert and in no distress He has a tracheostomy tube with PMV and trach shield Chest - decreased breath sounds at bases Heart - S1 and S2 normal Abdomen - soft, non tender Neurological - alert and oriented Musculoskeletal - generalized weakness Extremities - no edema Labs Laboratory Tests Test 01/18/21 11:39 01/18/21 16:29 01/18/21 20:15 Glucose (Fingerstick) 129 mg/dL (70-99) H 155 mg/dL (70-99) H 139 mg/dL (70-99) H Meds Current Medications Medications (Trade) Dose Ordered Sig/Linden Route PRN Reason Start Time Stop Time Status Last Admin Dose Admin Gabapentin (Neurontin) 600 mg TID PO 01/18/21 14:00 01/18/21 21:31 Assessment Assessment 1. Fever, etiology not clear. 2. Recent COVID-19 pneumonia. 3. Acute on chronic hypoxic respiratory failure, now on PMV with trach shield, weaned off ventilation. 4. Diabetes mellitus type 2 with neuropathy. 5. Trauma to left foot with partial avulsion of the left second toenail. 6. Congestive heart failure, both diastolic and systolic, currently chronic with ejection fraction of 20-30% and diastolic dysfunction. 7. Hypertension. 8. Anemia. 9. Recent acute kidney injury with chronic kidney disease. 10. Coronary artery disease. 11. Reflux esophagitis. 12. History of drug abuse and alcohol abuse in the past. 13. Bilateral knee osteoarthritis 14. Hyperlipidemia. 15. Severe noncompliance. 16. Super morbid obesity. 17. Anemia. 18. Recent acute metabolic encephalopathy. PLAN: Consult Dr. Harvey for pulmonary evaluation and management. Consult Dr. Duane Torres for Infectious Disease evaluation and because of the fever. The patient currently not on antibiotics. Discussed with social media marketing specialist consider placing him in a senior care unit when possible. I will order urinalysis, urine culture and blood cultures. Monitor fever. For details, please refer to the orders. Fever resolved. consult Dr. Mohamud- toe injury. Overall improving. Awaiting transfer to a [place] [facility]. There is a big shortage of tracheostomy beds in nursing homes. Physical deconditioning with neuropathy-continue PT OT. Dose of gabapentin increased. Renal function and hyperkalemia are improving. Elevated LFTs no significant change. Please refer to the discharge summary for more details. Discharge management 35 minutes. Plan Plan For more details regarding further plans, please refer to the orders. Justifications for Admission Other Justification PADDY LINCOLN MD Jan 19, 2021 08:59
[2021-01-19] MEDS: buPROPion XL 150 MG TAB.ER.24H. PO SCH (09:31)
[2021-01-19] MEDS: MAGNESIUM OXIDE 400 MG TABLET PO SCH ×2 (09:32→22:53)
[2021-01-19] MEDS: QUEtiapine 100 MG TABLET. PO SCH ×3 (09:32→22:54)
[2021-01-19] MEDS: GABAPENTIN 300 MG CAPSULE. PO SCH ×3 (09:32→22:53)
[2021-01-19] MEDS: METOPROLOL TART IMMED RELEASE 25 MG TABLET. PO SCH ×2 (09:33→22:54)
[2021-01-19] MEDS: ASPIRIN ENTERIC COATED 81 MG TABLET.DR. PO SCH (09:34)
[2021-01-19] MEDS: DULoxetine HCL 30 MG CAPSULE.DR PO SCH (09:34)
[2021-01-19] MEDS: busPIRone 5 MG TABLET. PO SCH ×3 (09:34→22:54)
[2021-01-19] MEDS: ISOSORBIDE MONONITRATE ER 30 MG TAB.ER.24H PO SCH (09:34)
[2021-01-19] MEDS: SENNOSIDES/DOCUSATE 8.6/50MG TABLET. PO SCH ×2 (09:34→22:53)
[2021-01-19] MEDS: INSULIN GLARGINE SYRINGE. SQ SCH ×2 (09:40→22:55)
[2021-01-19] MEDS: FLUTICASONE 50MCG/NASAL SPRAY 16GM BOTTLE. NS SCH (09:41)
[2021-01-19 11:00] VITALS: BP 129/66
[2021-01-19] MEDS: DICLOFENAC SODIUM 1% TOPICAL GEL 100GM TUBE. TP SCH ×2 (13:00→21:00)
--- NOTE | 2021-01-19 13:51 | CONS ---
DATE OF CONSULTATION: 01/19/2021 ATTENDING PHYSICIAN: Kirby Jean MD REASON FOR CONSULTATION: The patient was seen at the request of Dr. Jean for rehab evaluation. HISTORY OF PRESENT ILLNESS: This is a 50-year-old right-handed male known to me since his hospitalization at [facility]. The patient with diabetic peripheral neuropathy with bilateral foot drop, morbid obesity, noncompliance, gastroparesis, history of drug abuse including cocaine use, alcoholism, gastroesophageal reflux disease, anemia, osteoarthritis of his knees, coronary artery disease, hyperlipidemia, allergic rhinitis, recurrent skin infection with MRSA, sleep apnea, status post tear of medial meniscus of his left knee, chronic smoking, status post removal of cyst from abdomen in the past, appendectomy, right knee arthroscopic surgery and also open surgery, but not total knee arthroplasty. The patient developed COVID-19 pneumonia on 10/23/2020. Initially, he was treated at [facility]. He required intubation on 10/21, extubated on , required re-intubation subsequently, required tracheostomy, transferred to [facility] on 11/15/2020. The patient was transferred to [facility] on 01/04/2021 and from there, he was transferred to [facility] as respiratory therapy staff felt like they could not handle him. He was admitted to [facility] on 01/07/2021 The patient is being treated for acute on chronic hypoxic respiratory failure secondary to COVID-19 infection, on trach shield with PMV, also hypertension, diastolic heart failure with ejection fraction of 20-30% and grade III diastolic dysfunction. Also, he had acute kidney impairment, requiring hemodialysis during his treatment for COVID-19 pneumonia, but right now he is off hemodialysis. The patient admits left knee joint pain. He is being followed by physical therapy and occupational therapy. Progress has been slow secondary to bilateral foot drop and left knee pain. He is somewhat hesitant about left knee steroid injection as he admits right knee injection in the past made his right knee pop. The patient denies any significant back pain or hip pain. The patient is being considered for transfer to retirement care unit, but having difficulty to find one that can accept the patient with a trach. [facility] felt like he could not tolerate 3 hours of therapy. PHYSICAL EXAMINATION: GENERAL: On physical exam today revealed a middle-aged male. He is alert, oriented to time, place, person and circumstance, follows commands appropriately. NEUROLOGIC: Moves all 4 extremities voluntarily where he had 4+/5 grade muscle strength except no voluntary foot and toe dorsiflexion and plantar flexion. He keeps his left foot in an inverted position at the ankle. The patient had crepitus on range of motion of his knee joints without any significant knee joint effusion. He has some limitation of left hip rotational movements. The patient is independent rolling from side to side. I have not tested his transfers or ambulation skills at this time. He had absent knee and ankle jerks. He had decreased touch and pinprick sensation over a sock and glove distribution. He is obese. ASSESSMENT: Mobility and self-care limitation in a patient with diabetic peripheral neuropathy with bilateral foot drop. No active dorsiflexion or plantar flexion at both feet. Morbid obesity. Degenerative joint disease of both knees with some pain in his left knee and probable degenerative joint disease of left hip joint. Coronary artery disease, hypertension, acute on chronic systolic, diastolic heart failure with ejection fraction of 20-30% and grade III diastolic dysfunction. History of gastroparesis, drug use, alcoholism, gastroesophageal reflux disease, anemia, hyperlipidemia. RECOMMENDATIONS: He needs bilateral ankle foot braces with single upright and diabetic shoes for him to having a chance of making some progress with the therapy participation. I think if he gets his ankle foot braces, he should be able to tolerate therapy to go to acute rehabilitation hospital. To consider injecting his left knee joint to help ease his pain whenever he agrees. Dr. Jean, I appreciate asking me to participate in the care of this interesting patient. I will be glad to see him for a followup with you on as needed basis. LUIS MIGUEL/CANELO/YENI DR: Shawn TID: [id number]
--- NOTE | 2021-01-19 14:43 | RAD ---
Left hip 2 views with one view pelvis Single view was taken of the pelvis. Portable technique is limited due to the patient's size. There i s no acute pelvic fracture. There is mild spurring on the femoral head suggesting mild arthritis. AP and lateral views were taken of the left hip. There is no acute fracture. There is mild spurring o n the femoral head suggesting mild arthritis. No other acute osseous abnormality noted. IMPRESSION: 1. Mild arthritis left hip. 2. No pelvic fracture or pelvic abnormality. Electronically signed by: Arnoldo Cueva MD (01/19/2021 2:41 PM) [facility]
[2021-01-19 15:00] VITALS: BP 131/68
--- NOTE | 2021-01-19 15:10 | NUR ---
SW following. Discussed with RN, [facility] cannot take trachs. [facility] can take tr[facility]s but do not have any beds available and won't for some time. JOSE DANIEL will continue to follow.
[2021-01-19 19:00] VITALS: BP 119/68
[2021-01-19] MEDS: MONTELUKAST SODIUM 10 MG TABLET. PO SCH (22:53)
[2021-01-19] MEDS: clonazePAM 0.5 MG TABLET PO PRN (22:54)
[2021-01-19 23:00] VITALS: BP 159/84
[2021-01-20 03:00] VITALS: BP 128/69
[2021-01-20] MEDS: HEPARIN for SUB-Q USE 5,000 UNIT/ML VIAL. SQ SCH ×3 (05:49→21:37)
[2021-01-20 07:00] VITALS: BP 132/76
[2021-01-20] MEDS: IPRATRPIUM/ALBUTEROL 0.5/2.5MG 3 ML NEBU. NEB SCH ×4 (07:38→20:00)
[2021-01-20] MEDS: DICLOFENAC SODIUM 1% TOPICAL GEL 100GM TUBE. TP SCH ×2 (09:00→21:00)
[2021-01-20] MEDS: INSULIN GLARGINE SYRINGE. SQ SCH ×2 (09:25→21:37)
[2021-01-20] MEDS: MAGNESIUM OXIDE 400 MG TABLET PO SCH ×2 (09:30→21:35)
[2021-01-20] MEDS: SENNOSIDES/DOCUSATE 8.6/50MG TABLET. PO SCH ×2 (09:30→21:35)
[2021-01-20] MEDS: buPROPion XL 150 MG TAB.ER.24H. PO SCH (09:30)
[2021-01-20] MEDS: METOPROLOL TART IMMED RELEASE 25 MG TABLET. PO SCH ×2 (09:30→21:36)
[2021-01-20] MEDS: busPIRone 5 MG TABLET. PO SCH ×3 (09:30→21:35)
[2021-01-20] MEDS: oxyCODONE IR 5 MG TABLET PO PRN (09:30)
[2021-01-20] MEDS: GABAPENTIN 300 MG CAPSULE. PO SCH ×3 (09:30→21:35)
[2021-01-20] MEDS: QUEtiapine 100 MG TABLET. PO SCH ×3 (09:31→21:35)
[2021-01-20] MEDS: DULoxetine HCL 30 MG CAPSULE.DR PO SCH (09:31)
[2021-01-20] MEDS: ISOSORBIDE MONONITRATE ER 30 MG TAB.ER.24H PO SCH (09:31)
[2021-01-20] MEDS: ASPIRIN ENTERIC COATED 81 MG TABLET.DR. PO SCH (09:31)
[2021-01-20] MEDS: PANTOPRAZOLE 40 MG TABLET.DR. PO SCH (09:31)
[2021-01-20] MEDS: FLUTICASONE 50MCG/NASAL SPRAY 16GM BOTTLE. NS SCH (09:31)
--- NOTE | 2021-01-20 09:36 | PDOC ---
IM PROGRESS NOTES- Subjective Subjective No pain,dyspnea. Objective Vitals/I&O Vital Signs Date Time Temp Pulse Resp B/P (MAP) Pulse Ox O2 Delivery O2 Flow Rate FiO2 01/20/21 09:31 81 132/76 01/20/21 07:38 99 Tracheal Collar 8.0 01/20/21 07:00 98.1 22 98.1 I & O 01/19/21 01/19/21 01/20/21 15:00 23:00 07:00 Output Total 1550 ml Balance -1550 ml Physical Exam Physical Exam General Appearance - alert and in no distress Chest - decreased breath sounds at bases Heart - S1 and S2 normal Abdomen - soft, non tender Neurological - alert and oriented Musculoskeletal - generalized weakness Extremities - no edema Labs Laboratory Tests Test 01/19/21 11:55 01/19/21 17:13 01/19/21 20:47 01/20/21 07:46 Glucose (Fingerstick) 169 mg/dL (70-99) H 209 mg/dL (70-99) H 178 mg/dL (70-99) H 128 mg/dL (70-99) H Meds Current Medications Medications (Trade) Dose Ordered Sig/Linden Route PRN Reason Start Time Stop Time Status Last Admin Dose Admin Diclofenac Sodium (Voltaren) 1 chung BID TP 01/19/21 11:00 01/19/21 21:00 Assessment Assessment 1. Fever, etiology not clear. 2. Recent COVID-19 pneumonia. 3. Acute on chronic hypoxic respiratory failure, now on PMV with trach shield, weaned off ventilation. 4. Diabetes mellitus type 2 with neuropathy. 5. Trauma to left foot with partial avulsion of the left second toenail. 6. Congestive heart failure, both diastolic and systolic, currently chronic with ejection fraction of 20-30% and diastolic dysfunction. 7. Hypertension. 8. Anemia. 9. Recent acute kidney injury with chronic kidney disease. 10. Coronary artery disease. 11. Reflux esophagitis. 12. History of drug abuse and alcohol abuse in the past. 13. Bilateral knee osteoarthritis 14. Hyperlipidemia. 15. Severe noncompliance. 16. Super morbid obesity. 17. Anemia. 18. Recent acute metabolic encephalopathy. PLAN: Consult Dr. Harvey for pulmonary evaluation and management. Consult Dr. Duane Torres for Infectious Disease evaluation and because of the fever. The patient currently not on antibiotics. Discussed with social economist consider placing him in a fpc unit when possible. I will order urinalysis, urine culture and blood cultures. Monitor fever. For details, please refer to the orders. Fever resolved. consult Dr. Mohamud- toe injury. Overall improving. Awaiting transfer to a assisted. There is a big shorta ge of tracheostomy beds in nursing homes. Physical deconditioning with neuropathy-continue PT OT. Dose of gabapentin increased. Discussed with Dr. Willis. Patient has bilateral foot drop and needs ankle braces. Diabetic neuropathy-he will need diabetic shoes. Renal function and hyperkalemia are improving. Elevated LFTs no significant change. Please refer to the discharge summary for more details. Discharge management 35 minutes. Plan Plan For more details regarding further plans, please refer to the orders. Justifications for Admission Other Justification PADDY LINCOLN MD Jan 20, 2021 09:36
--- NOTE | 2021-01-20 10:37 | PDOC ---
PROGRESS NOTES Date of Service DATE: 01/20/21 TIME: 10:35 Subjective Subjective No new complaints. Objective Objective Vital Signs Date Time Temp Pulse Resp B/P (MAP) Pulse Ox O2 Delivery O2 Flow Rate FiO2 01/20/21 09:31 81 132/76 01/20/21 07:38 99 Tracheal Collar 8.0 01/20/21 07:00 98.1 22 98.1 Intake and Output 01/20/21 07:00 Output Total 1550 ml Balance -1550 ml Output Urine Total 1550 ml # Voids 1 # Bowel Movements 1 Physical Exam Physical Exam He is supine in bed and trach in place and he continues with bilateral foot drop and DJD of his knees and left hip joint. Assessment Assessment Problems Medical Problems: (1) COPD (chronic obstructive pulmonary disease) Status: Acute (2) Tracheostomy in place Status: Acute (3) Weakness Status: Acute Plan Plan of Care He needs to have bilateral ankle foot orthosis with diabetic shoes for him to have a chance to participate with therapy and go home or to a facility that can accept him with trach. Comment Review of Relevant I have reviewed the following items mkuund (where applicable) has been applied. Labs Laboratory Tests Test 01/18/21 11:39 01/18/21 16:29 01/18/21 20:15 01/19/21 11:55 Glucose (Fingerstick) 129 mg/dL (70-99) 155 mg/dL (70-99) 139 mg/dL (70-99) 169 mg/dL (70-99) Test 01/19/21 17:13 01/19/21 20:47 01/20/21 07:46 Glucose (Fingerstick) 209 mg/dL (70-99) 178 mg/dL (70-99) 128 mg/dL (70-99) Laboratory Tests Test 01/19/21 11:55 01/19/21 17:13 01/19/21 20:47 01/20/21 07:46 Glucose (Fingerstick) 169 mg/dL (70-99) 209 mg/dL (70-99) 178 mg/dL (70-99) 128 mg/dL (70-99) Microbiology 01/08/21 Urine Culture - Final, Complete 01/08/21 Blood Culture - Final, Complete NO GROWTH AFTER 5 DAYS Medications Current Medications Ondansetron HCl (Zofran) 4 mg PRN Q8HRS PRN IVP NAUSEA/VOMITING Last administered on 01/08/21 12:22; Start 01/07/21 at 21:30; Stop 01/08/21 at 21:29; Status DC Pharmacy Consult (C.diff Med Screen By Rx) 1 each 1X ONCE [facility] ; Start 01/08/21 at 02:45; Stop 01/08/21 at 02:46; Status Cancel Influenza Virus Vaccine Quadrival (Flulaval Quad [id number] Syringe) 0.5 ml ONCE ONCE VAX IM Last administered on 01/08/21 13:46; Start 01/08/21 at 09:00; Stop 01/08/21 at 09:03; Status DC Aspirin (Ecotrin) 81 mg DAILYWBKFT PO Last administered on 01/20/21 09:31; Start 01/09/21 at 08:00 Buspirone HCl (Buspar) 5 mg TID PO Last administered on 01/20/21 09:30; Start 01/08/21 at 09:00 Gabapentin (Neurontin) 300 mg QID PO Last administered on 01/18/21 09:18; Start 01/08/21 at 09:00; Stop 01/18/21 at 10:00; Status DC Albuterol/ Ipratropium (Duoneb) 3 ml RTQID NEB Last administered on 01/20/21 07:38; Start 01/08/21 at 12:00 Isosorbide Mononitrate (Imdur) 30 mg DAILY PO Last administered on 01/20/21 09:31; Start 01/08/21 at 09:00 Magnesium Oxide (Magnesium Oxide) 800 mg BID PO Last administered on 01/20/21 09:30; Start 01/08/21 at 09:00 Metoprolol Tartrate (Lopressor) 25 mg BID PO Last administered on 01/20/21 09:30; Start 01/08/21 at 09:00 Montelukast Sodium (Singulair) 10 mg HS PO Last administered on 01/19/21 22:53; Start 01/08/21 at 21:00 Pantoprazole Sodium (Protonix) 40 mg DAILYAC PO Last administered on 01/20/21 09:31; Start 01/08/21 at 09:00 Quetiapine Fumarate (SEROquel) 100 mg TID PO Last administered on 01/20/21 09:31; Start 01/08/21 at 09:00 Senna/Docusate Sodium (Senna Plus) 2 tab BID PO Last administered on 01/20/21 09:30; Start 01/08/21 at 09:00 Bupropion HCl (Wellbutrin Xl) 300 mg DAILY PO Last administered on 01/20/21 09:30; Start 01/08/21 at 09:00 Clonazepam (KlonoPIN) 0.5 mg PRN Q12HRS PRN PO ANXIETY / AGITATION Last administered on 01/19/21 22:54; Start 01/08/21 at 09:15 Duloxetine HCl (Cymbalta) 60 mg DAILY PO Last administered on 01/20/21 09:31; Start 01/08/21 at 09:00 Fluticasone Propionate (Flonase) 2 spray DAILY NS Last administered on 01/20/21 09:31; Start 01/08/21 at 09:00 Non-Formulary Medication (Glucagon,Human Recombinant (Glucagon Emergency Kit)) 1 mg low blood sugar IM ; Start 01/08/21 at 09:00; Status UNV Heparin Sodium (Porcine) (Heparin Sodium) 5,000 unit Q8HRS SQ Last administered on 01/20/21 05:49; Start 01/08/21 at 14:00 Insulin Glargine (Lantus Syringe) 34 unit BID SQ Last administered on 01/20/21 09:25; Start 01/08/21 at 09:00 Non-Formulary Medication (Melatonin ) 2 tab QHS PO ; Start 01/08/21 at 21:00; Status UNV Oxycodone HCl (Roxicodone) 15 mg PRN Q6HRS PRN PO MODERATE-SEVERE PAIN Last administered on 01/20/21 09:30; Start 01/08/21 at 09:15 Acetaminophen (Tylenol) 650 mg PRN Q6HRS PRN PO MILD PAIN / TEMP > 100.3'F; Start 01/08/21 at 09:00 Gabapentin (Neurontin) 600 mg TID PO Last administered on 01/20/21 09:30; Start 01/18/21 at 14:00 Diclofenac Sodium (Voltaren) 1 chung BID TP Last administered on 01/19/21at 21:00; Start 01/19/21 at 11:00 Active Scripts Active Lantus Solostar (Insulin Glargine,Hum.rec.anlog) 100 Unit/1 Ml Insuln.pen 34 Unit SQ BID Hold if blood sugar less than 100. Acetaminophen 325 Mg Tablet 650 Mg PO PRN Q6HRS PRN Wellbutrin Xl (Bupropion Hcl) 300 Mg Tab.er.24h 1 Tab PO DAILY Duoneb 0.5-3(2.5) Mg/3 Ml (Albuterol/Ipratropium) 3 Ml Ampul.neb 3 Ml NEB RTQID 30 Days Aspirin Ec (Aspirin) 81 Mg Tablet. 81 Mg PO DAILYWBKFT Reported Glucagon Emergency Kit (Glucagon,Human Recombinant) 1 Mg Kit 1 Mg IM LOW BLOOD SUGAR Gabapentin (Gabapentin) 300 Mg Capsule 300 Mg PO QID Cymbalta (Duloxetine Hcl) 60 Mg Capsule. 1 Cap PO DAILY Heparin 2,000 Unit/2 Ml Vial (Heparin Sodium,Porcine/Pf) 1,000 Unit/1 Ml Vial 5,000 Unit IJ Q8HRS Isosorbide Mononitrate Er (Isosorbide Mononitrate) 30 Mg Tab.er.24h 1 Tab PO DAILY Clonazepam 1 Mg Tablet 0.5 Mg PO PRN BID PRN Magnesium Oxide 400 Mg Tablet 2 Tab PO BID Melatonin 3 Mg Tab.rapdis 2 Tab PO QHS 30 Days Oxycodone Hcl Immed.release (Oxycodone Hcl) 15 Mg Tablet 15 Mg PO PRN Q6HRS PRN Flonase Allergy Relief (Fluticasone Propionate) 9.9 Ml [place].susp 2 Sprays NS DAILY Seroquel (Quetiapine Fumarate) 100 Mg Tablet 100 Mg PO TID Protonix (Pantoprazole Sodium) 40 Mg Tablet. 40 Mg PO DAILYAC Buspirone Hcl 5 Mg Tablet 1 Tab PO TID Senokot-S Tablet (Sennosides/Docusate Sodium) 1 Each Tablet 2 Tab PO BID 30 Days Metoprolol Tartrate 25 Mg Tablet 1 Tab PO BID Singulair Tablet (Montelukast Sodium) 10 Mg Tablet 10 Mg PO HS Vitals/I & O Vital Sign - Last 24 Hours 01/19/21 01/19/21 01/19/21 01/19/21 10:45 11:00 15:00 15:11 Temp 98.1 98.0 98.1 98.0 Pulse 76 80 Resp 18 21 B/P (MAP) 129/66 (87) 131/68 (89) Pulse Ox 98 100 96 100 O2 Delivery Tracheal Collar Tracheal Collar Tracheal Collar Tracheal Collar O2 Flow Rate 8.0 8.0 8.0 8.0 01/19/21 01/19/21 01/19/21 01/19/21 18:14 19:00 20:00 22:54 Temp 98.4 98.4 Pulse 90 80 Resp 18 B/P (MAP) 119/68 (85) 131/68 Pulse Ox 99 98 O2 Delivery Tracheal Collar Trach Collar O2 Flow Rate 8.0 8.0 01/19/21 01/20/21 01/20/21 01/20/21 23:00 03:00 07:00 07:38 Temp 98.3 98.2 98.1 98.3 98.2 98.1 Pulse 87 79 81 Resp 18 16 22 B/P (MAP) 159/84 (109) 128/69 (88) 132/76 (94) Pulse Ox 99 100 99 99 O2 Delivery Tracheal Collar Tracheal Collar O2 Flow Rate 8.0 8.0 01/20/21 01/20/21 09:30 09:31 Pulse 81 81 B/P (MAP) 132/76 132/76 Intake and Output 01/19/21 01/19/21 01/20/21 15:00 23:00 07:00 Output Total 1550 ml Balance -1550 ml Justifications for Admission Other Justification ALVARO RHOADES MD Jan 20, 2021 10:37
[2021-01-20 11:00] VITALS: BP 152/84
[2021-01-20 15:00] VITALS: BP 123/73
[2021-01-20 19:56] VITALS: BP 131/75
[2021-01-20] MEDS: MONTELUKAST SODIUM 10 MG TABLET. PO SCH (21:35)
[2021-01-20] MEDS: clonazePAM 0.5 MG TABLET PO PRN (21:36)
[2021-01-20 23:30] VITALS: BP 145/71
[2021-01-21 03:51] VITALS: BP 167/83
[2021-01-21] MEDS: HEPARIN for SUB-Q USE 5,000 UNIT/ML VIAL. SQ SCH ×3 (06:01→21:30)
[2021-01-21 07:00] VITALS: BP 118/60
[2021-01-21] MEDS: IPRATRPIUM/ALBUTEROL 0.5/2.5MG 3 ML NEBU. NEB SCH ×4 (08:17→20:32)
[2021-01-21] MEDS: SENNOSIDES/DOCUSATE 8.6/50MG TABLET. PO SCH ×2 (08:53→21:00)
[2021-01-21] MEDS: MAGNESIUM OXIDE 400 MG TABLET PO SCH ×2 (08:53→21:09)
[2021-01-21] MEDS: ASPIRIN ENTERIC COATED 81 MG TABLET.DR. PO SCH (08:53)
[2021-01-21] MEDS: busPIRone 5 MG TABLET. PO SCH ×3 (08:53→21:10)
[2021-01-21] MEDS: QUEtiapine 100 MG TABLET. PO SCH ×3 (08:53→21:09)
[2021-01-21] MEDS: buPROPion XL 150 MG TAB.ER.24H. PO SCH (08:53)
[2021-01-21] MEDS: PANTOPRAZOLE 40 MG TABLET.DR. PO SCH (08:53)
[2021-01-21] MEDS: ISOSORBIDE MONONITRATE ER 30 MG TAB.ER.24H PO SCH (08:54)
[2021-01-21] MEDS: GABAPENTIN 300 MG CAPSULE. PO SCH ×3 (08:54→21:10)
[2021-01-21] MEDS: DULoxetine HCL 30 MG CAPSULE.DR PO SCH (08:54)
[2021-01-21] MEDS: METOPROLOL TART IMMED RELEASE 25 MG TABLET. PO SCH ×2 (08:54→21:09)
[2021-01-21] MEDS: DICLOFENAC SODIUM 1% TOPICAL GEL 100GM TUBE. TP SCH ×2 (08:55→21:18)
[2021-01-21] MEDS: FLUTICASONE 50MCG/NASAL SPRAY 16GM BOTTLE. NS SCH (08:55)
[2021-01-21] MEDS: INSULIN GLARGINE SYRINGE. SQ SCH ×2 (09:03→21:29)
--- NOTE | 2021-01-21 10:33 | PDOC ---
IM PROGRESS NOTES- Subjective Subjective No pain,dyspnea. Objective Vitals/I&O Vital Signs Date Time Temp Pulse Resp B/P (MAP) Pulse Ox O2 Delivery O2 Flow Rate FiO2 01/21/21 08:54 85 118/60 01/21/21 08:21 98 Tracheal Collar 8.0 01/21/21 07:00 98.1 22 98.1 I & O 01/20/21 01/20/21 01/21/21 15:00 23:00 07:00 Intake Total 200 ml 300 ml Output Total 600 ml Balance 200 ml 300 ml -600 ml Physical Exam Physical Exam General Appearance - alert and in no distress Chest - decreased breath sounds at bases he has a tracheostomy tube with PMV and trach shield Heart - S1 and S2 normal Abdomen - soft, non tender Neurological - alert and oriented Musculoskeletal - generalized weakness Extremities - no edema Labs Laboratory Tests Test 01/20/21 11:42 01/20/21 16:41 01/20/21 21:11 01/21/21 07:38 Glucose (Fingerstick) 197 mg/dL (70-99) H 179 mg/dL (70-99) H 161 mg/dL (70-99) H 180 mg/dL (70-99) H Assessment Assessment 1. Fever, etiology not clear. 2. Recent COVID-19 pneumonia. 3. Acute on chronic hypoxic respiratory failure, now on PMV with trach shield, weaned off ventilation. 4. Diabetes mellitus type 2 with neuropathy. 5. Trauma to left foot with partial avulsion of the left second toenail. 6. Congestive heart failure, both diastolic and systolic, currently chronic with ejection fraction of 20-30% and diastolic dysfunction. 7. Hypertension. 8. Anemia. 9. Recent acute kidney injury with chronic kidney disease. 10. Coronary artery disease. 11. Reflux esophagitis. 12. History of drug abuse and alcohol abuse in the past. 13. Bilateral knee osteoarthritis 14. Hyperlipidemia. 15. Severe noncompliance. 16. Super morbid obesity. 17. Anemia. 18. Recent acute metabolic encephalopathy. PLAN: Consult Dr. Harevy for pulmonary evaluation and management. Consult Dr. Duane Torres for Infectious Disease evaluation and because of the fever. The patient currently not on antibiotics. Discussed with social work program coordinator consider placing him in a usp unit when possible. I will order urinalysis, urine culture and blood cultures. Monitor fever. For details, please refer to the orders. Fever resolved. consult Dr. Mohamud- toe injury. Overall improving. Awaiting transfer to a detention. There is a big shortage of tracheostomy beds in nursing homes. Physical deconditioning with neuropathy-continue PT OT. Dose of gabapentin increased. Discussed with Dr. Willis. Patient has bilateral foot drop and needs ankle braces. Diabetic neuropathy-he will need diabetic shoes. Renal function and hyperkalemia are improving. Elevated LFTs no significant change. Please refer to the discharge summary for more details. Discharge management 35 minutes. Plan Plan For more details regarding further plans, please refer to the orders. Justifications for Admission Other Justification PADDY LINCOLN MD Jan 21, 2021 10:33
[2021-01-21 11:00] VITALS: BP 131/71
[2021-01-21] MEDS ORDERED: GABA300C18 PO (12:11)
[2021-01-21 15:00] VITALS: BP 136/86
[2021-01-21] MEDS: oxyCODONE IR 5 MG TABLET PO PRN (15:46)
[2021-01-21 19:00] VITALS: BP 145/95
[2021-01-21] MEDS: MONTELUKAST SODIUM 10 MG TABLET. PO SCH (21:10)
[2021-01-21] MEDS: clonazePAM 0.5 MG TABLET PO PRN (21:10)
[2021-01-21 23:29] VITALS: BP 135/74
[2021-01-22 03:19] VITALS: BP 134/78
[2021-01-22] MEDS: HEPARIN for SUB-Q USE 5,000 UNIT/ML VIAL. SQ SCH ×3 (05:44→22:25)
[2021-01-22 06:41] LABS: ALBUMIN 2.6 g/dL (3.4-5.0); ALBUMIN/GLOBULIN RATIO 0.5 (1.0-1.7); CALCIUM 9.3 mg/dL (8.5-10.1); CREATININE 0.8 mg/dL (0.7-1.3); GFR 124.8; POTASSIUM 4.3 mmol/L (3.5-5.1); TOTAL BILIRUBIN 0.3 mg/dL (0.2-1.0); TOTAL PROTEIN 8.1 g/dL (6.4-8.2)
[2021-01-22 07:00] VITALS: BP 120/63
[2021-01-22 07:10] LABS: BASO # 0.1 x10^3/uL (0.0-0.2); BASO % 1 % (0-3); EOS # 0.5 x10^3/uL (0.0-0.7); EOS % 8 % (0-3); HEMATOCRIT 29.8 % (39.0-53.0); HEMOGLOBIN 9.6 g/dL (13.0-17.5); LYMPH # 2.3 x10^3/uL (1.0-4.8); LYMPH % 35 % (24-48); MEAN CORPUSCULAR HEMOGLOBIN 28 pg (25-35); MEAN CORPUSCULAR HGB CONC 32 g/dL (31-37); MEAN CORPUSCULAR VOLUME 87 fL (79-100); MONO # 0.7 x10^3/uL (0.0-1.1); MONO % 11 % (0-9); NEUT # 2.9 x10^3/uL (1.8-7.7); NEUT % 45 % (31-73); PLATELET COUNT 217 x10^3/uL (140-400); RED BLOOD COUNT 3.41 x10^6/uL (4.30-5.70); RED CELL DISTRIBUTION WIDTH 15.4 % (11.5-14.5); WHITE BLOOD COUNT 6.5 x10^3/uL (4.0-11.0)
[2021-01-22] MEDS: IPRATRPIUM/ALBUTEROL 0.5/2.5MG 3 ML NEBU. NEB SCH ×4 (07:20→20:11)
--- NOTE | 2021-01-22 08:40 | PDOC ---
IM PROGRESS NOTES- Subjective Subjective No pain,dyspnea. Objective Vitals/I&O Vital Signs Date Time Temp Pulse Resp B/P (MAP) Pulse Ox O2 Delivery O2 Flow Rate FiO2 01/22/21 07:20 100 Tracheal Collar 8.0 01/22/21 07:00 97.5 75 22 120/63 (82) 97.5 I & O 01/21/21 01/21/21 01/22/21 15:00 23:00 07:00 Intake Total 400 ml 200 ml 240 ml Output Total 775 ml 850 ml Balance -375 ml 200 ml -610 ml Physical Exam Physical Exam General Appearance - alert and in no distress Chest - decreased breath sounds at bases T tube with PMV on trach shield Heart - S1 and S2 normal Abdomen - soft, non tender Neurological - alert and oriented Musculoskeletal - generalized weakness Extremities - no edema Labs Laboratory Tests Test 01/21/21 11:20 01/21/21 17:09 01/21/21 20:34 01/22/21 06:05 Glucose (Fingerstick) 211 mg/dL (70-99) H 172 mg/dL (70-99) H 195 mg/dL (70-99) H White Blood Count 6.5 x10^3/uL (4.0-11.0) Red Blood Count 3.41 x10^6/uL (4.30-5.70) L Hemoglobin 9.6 g/dL (13.0-17.5) L Hematocrit 29.8 % (39.0-53.0) L Mean Corpuscular Volume 87 fL (79-100) Mean Corpuscular Hemoglobin 28 pg (25-35) Mean Corpuscular Hemoglobin Concent 32 g/dL (31-37) Red Cell Distribution Width 15.4 % (11.5-14.5) H Platelet Count 217 x10^3/uL (140-400) Neutrophils (%) (Auto) 45 % (31-73) Lymphocytes (%) (Auto) 35 % (24-48) Monocytes (%) (Auto) 11 % (0-9) H Eosinophils (%) (Auto) 8 % (0-3) H Basophils (%) (Auto) 1 % (0-3) Neutrophils # (Auto) 2.9 x10^3/uL (1.8-7.7) Lymphocytes # (Auto) 2.3 x10^3/uL (1.0-4.8) Monocytes # (Auto) 0.7 x10^3/uL (0.0-1.1) Eosinophils # (Auto) 0.5 x10^3/uL (0.0-0.7) Basophils # (Auto) 0.1 x10^3/uL (0.0-0.2) Sodium Level 135 mmol/L (136-145) L Potassium Level 4.3 mmol/L (3.5-5.1) Chloride Level 101 mmol/L (98-107) Carbon Dioxide Level 29 mmol/L (21-32) Anion Gap 5 (6-14) L Blood Urea Nitrogen 21 mg/dL (8-26) Creatinine 0.8 mg/dL (0.7-1.3) Estimated GFR (Cockcroft-Gault) 124.8 BUN/Creatinine Ratio 26 (6-20) H Glucose Level 151 mg/dL (70-99) H Calcium Level 9.3 mg/dL (8.5-10.1) Total Bilirubin 0.3 mg/dL (0.2-1.0) Aspartate Amino Transferase (AST) 146 U/L (15-37) H Alanine Aminotransferase (ALT) 241 U/L (16-63) H Alkaline Phosphatase 662 U/L (46-116) H Total Protein 8.1 g/dL (6.4-8.2) Albumin 2.6 g/dL (3.4-5.0) L Albumin/Globulin Ratio 0.5 (1.0-1.7) L Test 01/22/21 08:01 Glucose (Fingerstick) 132 mg/dL (70-99) H Laboratory Tests 01/22/21 06:05 Laboratory Tests 01/22/21 06:05 Assessment Assessment 1. Fever, etiology not clear. 2. Recent COVID-19 pneumonia. 3. Acute on chronic hypoxic respiratory failure, now on PMV with trach shield, weaned off ventilation. 4. Diabetes mellitus type 2 with neuropathy. 5. Trauma to left foot with partial avulsion of the left second toenail. 6. Congestive heart failure, both diastolic and systolic, currently chronic with ejection fraction of 20-30% and diastolic dysfunction. 7. Hypertension. 8. Anemia. 9. Recent acute kidney injury with chronic kidney disease. 10. Coronary artery disease. 11. Reflux esophagitis. 12. History of drug abuse and alcohol abuse in the past. 13. Bilateral knee osteoarthritis 14. Hyperlipidemia. 15. Severe noncompliance. 16. Super morbid obesity. 17. Anemia. 18. Recent acute metabolic encephalopathy. PLAN: Consult Dr. Harvey for pulmonary evaluation and management. Consult Dr. Duane Torres for Infectious Disease evaluation and because of the fever. The patient currently not on antibiotics. Discussed with certified social workers in health care consider placing him in a detention unit when possible. I will order urinalysis, urine culture and blood cultures. Monitor fever. For details, please refer to the orders. Fever resolved. consult Dr. Mohamud- toe injury. Overall improving. Awaiting transfer to a long term. There is a big shortage of tracheostomy beds in nursing homes. Physical deconditioning with neuropathy-continue PT OT. Dose of gabapentin increased. Discussed with Dr. Wilils. Patient has bilateral foot drop and needs ankle braces. Diabetic neuropathy-he will need diabetic shoes. Renal function and hyperkalemia are improving. Elevated LFTs getting worse. Consult Dr. Jalloh for GI evaluation and management recheck labs in a.m. Discussed with Dr. Willis. Transfer to [facility] when accepted. Please refer to the discharge summary for more details. Discharge management 35 minutes. Plan Plan For more details regarding further plans, please refer to the orders. Justifications for Admission Other Justification PADDY LINCOLN MD Jan 22, 2021 08:40
[2021-01-22] MEDS: DICLOFENAC SODIUM 1% TOPICAL GEL 100GM TUBE. TP SCH ×3 (09:00→13:48)
[2021-01-22] MEDS: QUEtiapine 100 MG TABLET. PO SCH ×3 (09:01→21:00)
[2021-01-22] MEDS: MAGNESIUM OXIDE 400 MG TABLET PO SCH ×2 (09:01→21:00)
[2021-01-22] MEDS: buPROPion XL 150 MG TAB.ER.24H. PO SCH (09:01)
[2021-01-22] MEDS: busPIRone 5 MG TABLET. PO SCH ×3 (09:01→21:00)
[2021-01-22] MEDS: DULoxetine HCL 30 MG CAPSULE.DR PO SCH (09:01)
[2021-01-22] MEDS: SENNOSIDES/DOCUSATE 8.6/50MG TABLET. PO SCH ×2 (09:01→20:59)
[2021-01-22] MEDS: GABAPENTIN 300 MG CAPSULE. PO SCH ×3 (09:01→20:59)
[2021-01-22] MEDS: ASPIRIN ENTERIC COATED 81 MG TABLET.DR. PO SCH (09:01)
[2021-01-22] MEDS: ISOSORBIDE MONONITRATE ER 30 MG TAB.ER.24H PO SCH (09:02)
[2021-01-22] MEDS: METOPROLOL TART IMMED RELEASE 25 MG TABLET. PO SCH ×2 (09:02→20:59)
[2021-01-22] MEDS: PANTOPRAZOLE 40 MG TABLET.DR. PO SCH (09:02)
[2021-01-22] MEDS: FLUTICASONE 50MCG/NASAL SPRAY 16GM BOTTLE. NS SCH (09:03)
[2021-01-22] MEDS: clonazePAM 0.5 MG TABLET PO PRN ×2 (09:10→21:16)
[2021-01-22] MEDS: INSULIN GLARGINE SYRINGE. SQ SCH ×2 (09:14→21:01)
[2021-01-22 11:00] VITALS: BP 140/80
--- NOTE | 2021-01-22 12:55 | PDOC ---
PROGRESS NOTES Date of Service DATE: 01/22/21 TIME: 12:52 Subjective Subjective No new complaints. Objective Objective Vital Signs Date Time Temp Pulse Resp B/P (MAP) Pulse Ox O2 Delivery O2 Flow Rate FiO2 01/22/21 11:33 100 Tracheal Collar 8.0 01/22/21 09:02 75 120/63 01/22/21 07:00 97.5 22 97.5 Intake and Output 01/22/21 07:00 Intake Total 840 ml Output Total 1625 ml Balance -785 ml Intake Oral 840 ml Output Urine Total 1625 ml Physical Exam Physical Exam He is alert,supine in bed with trach shield in place and no change with his bilateral foot drop. No notes in his chart from physical therapy for the last 5 days. He has not received his ankle foot orthosis yet. Assessment Assessment Problems Medical Problems: (1) COPD (chronic obstructive pulmonary disease) Status: Acute (2) Tracheostomy in place Status: Acute (3) Weakness Status: Acute Plan Plan of Care He needs his bilateral ankle braces for him to make progress with mobility participating with therapy. Comment Review of Relevant I have reviewed the following items mukund (where applicable) has been applied. Labs Laboratory Tests Test 01/20/21 16:41 01/20/21 21:11 01/21/21 07:38 01/21/21 11:20 Glucose (Fingerstick) 179 mg/dL (70-99) 161 mg/dL (70-99) 180 mg/dL (70-99) 211 mg/dL (70-99) Test 01/21/21 17:09 01/21/21 20:34 01/22/21 06:05 01/22/21 08:01 Glucose (Fingerstick) 172 mg/dL (70-99) 195 mg/dL (70-99) 132 mg/dL (70-99) White Blood Count 6.5 x10^3/uL (4.0-11.0) Red Blood Count 3.41 x10^6/uL (4.30-5.70) Hemoglobin 9.6 g/dL (13.0-17.5) Hematocrit 29.8 % (39.0-53.0) Mean Corpuscular Volume 87 fL (79-100) Mean Corpuscular Hemoglobin 28 pg (25-35) Mean Corpuscular Hemoglobin Concent 32 g/dL (31-37) Red Cell Distribution Width 15.4 % (11.5-14.5) Platelet Count 217 x10^3/uL (140-400) Neutrophils (%) (Auto) 45 % (31-73) Lymphocytes (%) (Auto) 35 % (24-48) Monocytes (%) (Auto) 11 % (0-9) Eosinophils (%) (Auto) 8 % (0-3) Basophils (%) (Auto) 1 % (0-3) Neutrophils # (Auto) 2.9 x10^3/uL (1.8-7.7) Lymphocytes # (Auto) 2.3 x10^3/uL (1.0-4.8) Monocytes # (Auto) 0.7 x10^3/uL (0.0-1.1) Eosinophils # (Auto) 0.5 x10^3/uL (0.0-0.7) Basophils # (Auto) 0.1 x10^3/uL (0.0-0.2) Sodium Level 135 mmol/L (136-145) Potassium Level 4.3 mmol/L (3.5-5.1) Chloride Level 101 mmol/L (98-107) Carbon Dioxide Level 29 mmol/L (21-32) Anion Gap 5 (6-14) Blood Urea Nitrogen 21 mg/dL (8-26) Creatinine 0.8 mg/dL (0.7-1.3) Estimated GFR (Cockcroft-Gault) 124.8 BUN/Creatinine Ratio 26 (6-20) Glucose Level 151 mg/dL (70-99) Calcium Level 9.3 mg/dL (8.5-10.1) Total Bilirubin 0.3 mg/dL (0.2-1.0) Aspartate Amino Transf (AST/SGOT) 146 U/L (15-37) Alanine Aminotransferase (ALT/SGPT) 241 U/L (16-63) Alkaline Phosphatase 662 U/L (46-116) Total Protein 8.1 g/dL (6.4-8.2) Albumin 2.6 g/dL (3.4-5.0) Albumin/Globulin Ratio 0.5 (1.0-1.7) Test 01/22/21 12:00 Glucose (Fingerstick) 194 mg/dL (70-99) Laboratory Tests Test 01/21/21 17:09 01/21/21 20:34 01/22/21 06:05 01/22/21 08:01 Glucose (Fingerstick) 172 mg/dL (70-99) 195 mg/dL (70-99) 132 mg/dL (70-99) White Blood Count 6.5 x10^3/uL (4.0-11.0) Red Blood Count 3.41 x10^6/uL (4.30-5.70) Hemoglobin 9.6 g/dL (13.0-17.5) Hematocrit 29.8 % (39.0-53.0) Mean Corpuscular Volume 87 fL (79-100) Mean Corpuscular Hemoglobin 28 pg (25-35) Mean Corpuscular Hemoglobin Concent 32 g/dL (31-37) Red Cell Distribution Width 15.4 % (11.5-14.5) Platelet Count 217 x10^3/uL (140-400) Neutrophils (%) (Auto) 45 % (31-73) Lymphocytes (%) (Auto) 35 % (24-48) Monocytes (%) (Auto) 11 % (0-9) Eosinophils (%) (Auto) 8 % (0-3) Basophils (%) (Auto) 1 % (0-3) Neutrophils # (Auto) 2.9 x10^3/uL (1.8-7.7) Lymphocytes # (Auto) 2.3 x10^3/uL (1.0-4.8) Monocytes # (Auto) 0.7 x10^3/uL (0.0-1.1) Eosinophils # (Auto) 0.5 x10^3/uL (0.0-0.7) Basophils # (Auto) 0.1 x10^3/uL (0.0-0.2) Sodium Level 135 mmol/L (136-145) Potassium Level 4.3 mmol/L (3.5-5.1) Chloride Level 101 mmol/L (98-107) Carbon Dioxide Level 29 mmol/L (21-32) Anion Gap 5 (6-14) Blood Urea Nitrogen 21 mg/dL (8-26) Creatinine 0.8 mg/dL (0.7-1.3) Estimated GFR (Cockcroft-Gault) 124.8 BUN/Creatinine Ratio 26 (6-20) Glucose Level 151 mg/dL (70-99) Calcium Level 9.3 mg/dL (8.5-10.1) Total Bilirubin 0.3 mg/dL (0.2-1.0) Aspartate Amino Transf (AST/SGOT) 146 U/L (15-37) Alanine Aminotransferase (ALT/SGPT) 241 U/L (16-63) Alkaline Phosphatase 662 U/L (46-116) Total Protein 8.1 g/dL (6.4-8.2) Albumin 2.6 g/dL (3.4-5.0) Albumin/Globulin Ratio 0.5 (1.0-1.7) Test 01/22/21 12:00 Glucose (Fingerstick) 194 mg/dL (70-99) Microbiology 01/08/21 Urine Culture - Final, Complete 01/08/21 Blood Culture - Final, Complete NO GROWTH AFTER 5 DAYS Medications Current Medications Ondansetron HCl (Zofran) 4 mg PRN Q8HRS PRN IVP NAUSEA/VOMITING Last administered on 01/08/21at 12:22; Start 01/07/21 at 21:30; Stop 01/08/21 at 21:29; Status DC Pharmacy Consult (C.diff Med Screen By Rx) 1 each 1X ONCE [facility] ; Start 01/08/21 at 02:45; Stop 01/08/21 at 02:46; Status Cancel Influenza Virus Vaccine Quadrival (Flulaval Quad [id number] Syringe) 0.5 ml ONCE ONCE VAX IM Last administered on 01/08/21at 13:46; Start 01/08/21 at 09:00; Stop 01/08/21 at 09:03; Status DC Aspirin (Ecotrin) 81 mg DAILYWBKFT PO Last administered on 01/22/21at 09:01; Start 01/09/21 at 08:00 Buspirone HCl (Buspar) 5 mg TID PO Last administered on 01/22/21at 09:01; Start 01/08/21 at 09:00 Gabapentin (Neurontin) 300 mg QID PO Last administered on 01/18/21at 09:18; Start 01/08/21 at 09:00; Stop 01/18/21 at 10:00; Status DC Albuterol/ Ipratropium (Duoneb) 3 ml RTQID NEB Last administered on 01/22/21 11:33; Start 01/08/21 at 12:00 Isosorbide Mononitrate (Imdur) 30 mg DAILY PO Last administered on 01/22/21 09:02; Start 01/08/21 at 09:00 Magnesium Oxide (Magnesium Oxide) 800 mg BID PO Last administered on 01/22/21 09:01; Start 01/08/21 at 09:00 Metoprolol Tartrate (Lopressor) 25 mg BID PO Last administered on 01/22/21 09:02; Start 01/08/21 at 09:00 Montelukast Sodium (Singulair) 10 mg HS PO Last administered on 01/21/21 21:10; Start 01/08/21 at 21:00 Pantoprazole Sodium (Protonix) 40 mg DAILYAC PO Last administered on 01/22/21 09:02; Start 01/08/21 at 09:00 Quetiapine Fumarate (SEROquel) 100 mg TID PO Last administered on 01/22/21 09:01; Start 01/08/21 at 09:00 Senna/Docusate Sodium (Senna Plus) 2 tab BID PO Last administered on 01/22/21 09:01; Start 01/08/21 at 09:00 Bupropion HCl (Wellbutrin Xl) 300 mg DAILY PO Last administered on 01/22/21 09:01; Start 01/08/21 at 09:00 Clonazepam (KlonoPIN) 0.5 mg PRN Q12HRS PRN PO ANXIETY / AGITATION Last administered on 01/22/21 09:10; Start 01/08/21 at 09:15 Duloxetine HCl (Cymbalta) 60 mg DAILY PO Last administered on 01/22/21 09:01; Start 01/08/21 at 09:00 Fluticasone Propionate (Flonase) 2 spray DAILY NS Last administered on 01/22/21 09:03; Start 01/08/21 at 09:00 Non-Formulary Medication (Glucagon,Human Recombinant (Glucagon Emergency Kit)) 1 mg low blood sugar IM ; Start 01/08/21 at 09:00; Status UNV Heparin Sodium (Porcine) (Heparin Sodium) 5,000 unit Q8HRS SQ Last administered on 01/22/21at 05:44; Start 01/08/21 at 14:00 Insulin Glargine (Lantus Syringe) 34 unit BID SQ Last administered on 01/22/21at 09:14; Start 01/08/21 at 09:00 Non-Formulary Medication (Melatonin ) 2 tab QHS PO ; Start 01/08/21 at 21:00; Status UNV Oxycodone HCl (Roxicodone) 15 mg PRN Q6HRS PRN PO MODERATE-SEVERE PAIN Last administered on 01/21/21at 15:46; Start 01/08/21 at 09:15 Acetaminophen (Tylenol) 650 mg PRN Q6HRS PRN PO MILD PAIN / TEMP > 100.3'F; St art 01/08/21 at 09:00 Gabapentin (Neurontin) 600 mg TID PO Last administered on 01/22/21at 09:01; Start 01/18/21 at 14:00 Diclofenac Sodium (Voltaren) 1 chung BID TP Last administered on 01/22/21at 09:00; Start 01/19/21 at 11:00 Active Scripts Active Gabapentin (Gabapentin) 300 Mg Capsule 600 Mg PO TID 30 Days Lantus Solostar (Insulin Glargine,Hum.rec.anlog) 100 Unit/1 Ml Insuln.pen 34 Unit SQ BID Hold if blood sugar less than 100. Acetaminophen 325 Mg Tablet 650 Mg PO PRN Q6HRS PRN Wellbutrin Xl (Bupropion Hcl) 300 Mg Tab.er.24h 1 Tab PO DAILY Duoneb 0.5-3(2.5) Mg/3 Ml (Albuterol/Ipratropium) 3 Ml Ampul.neb 3 Ml NEB RTQID 30 Days Aspirin Ec (Aspirin) 81 Mg Tablet. 81 Mg PO DAILYWBKFT Reported Glucagon Emergency Kit (Glucagon,Human Recombinant) 1 Mg Kit 1 Mg IM LOW BLOOD SUGAR Cymbalta (Duloxetine Hcl) 60 Mg Capsule.dr 1 Cap PO DAILY Heparin 2,000 Unit/2 Ml Vial (Heparin Sodium,Porcine/Pf) 1,000 Unit/1 Ml Vial 5,000 Unit IJ Q8HRS Isosorbide Mononitrate Er (Isosorbide Mononitrate) 30 Mg Tab.er.24h 1 Tab PO DAILY Clonazepam 1 Mg Tablet 0.5 Mg PO PRN BID PRN Magnesium Oxide 400 Mg Tablet 2 Tab PO BID Melatonin 3 Mg Tab.rapdis 2 Tab PO QHS 30 Days Oxycodone Hcl Immed.release (Oxycodone Hcl) 15 Mg Tablet 15 Mg PO PRN Q6HRS PRN Flonase Allergy Relief (Fluticasone Propionate) 9.9 Ml [place].susp 2 Sprays NS DAILY Seroquel (Quetiapine Fumarate) 100 Mg Tablet 100 Mg PO TID Protonix (Pantoprazole Sodium) 40 Mg Tablet.dr 40 Mg PO DAILYAC Buspirone Hcl 5 Mg Tablet 1 Tab PO TID Senokot-S Tablet (Sennosides/Docusate Sodium) 1 Each Tablet 2 Tab PO BID 30 Days Metoprolol Tartrate 25 Mg Tablet 1 Tab PO BID Singulair Tablet (Montelukast Sodium) 10 Mg Tablet 10 Mg PO HS Vitals/I & O Vital Sign - Last 24 Hours 01/21/21 01/21/21 01/21/21 01/21/21 15:00 16:22 19:00 19:10 Temp 98.4 98.3 98.4 98.3 Pulse 86 68 Resp 22 20 B/P (MAP) 136/86 (103) 145/95 (112) Pulse Ox 99 99 O2 Delivery Tracheal Collar Tracheal Collar Tracheal Collar Trach Collar O2 Flow Rate 8.0 8.0 8.0 01/21/21 01/21/21 01/21/21 01/22/21 20:32 21:09 23:29 03:19 Temp 98.3 98.1 98.3 98.1 Pulse 68 84 80 Resp 20 20 B/P (MAP) 145/95 135/74 (94) 134/78 (96) Pulse Ox 98 100 98 O2 Delivery Tracheal Collar Tracheal Collar Tracheal Collar O2 Flow Rate 8.0 8.0 8.0 01/22/21 01/22/21 01/22/21 01/22/21 07:00 07:20 09:02 09:02 Temp 97.5 97.5 Pulse 75 75 75 Resp 22 B/P (MAP) 120/63 (82) 120/63 120/63 Pulse Ox 98 100 O2 Delivery Tracheal Collar Tracheal Collar O2 Flow Rate 8.0 8.0 01/22/21 11:33 Pulse Ox 100 O2 Delivery Tracheal Collar O2 Flow Rate 8.0 Intake and Output 01/21/21 01/21/21 01/22/21 15:00 23:00 07:00 Intake Total 400 ml 200 ml 240 ml Output Total 775 ml 850 ml Balance -375 ml 200 ml -610 ml Justifications for Admission Other Justification ALVARO RHOADES MD Jan 22, 2021 12:55
--- NOTE | 2021-01-22 13:39 | PDOC2 ---
GI CONSULT Date of Service: DATE: 01/22/21 TIME: 13:13 Reason For Consult: elevated LFTs HPI: HPI: 50 y/o male admitted 01/08/21 w/ fever and resp failure. Had COVID-19 earlier this year, required tracheostomy placement and PEG placement per IR at [facility] (removed last month). Some issues w/ vomiting/high residuals. Says he's eating normally now. A couple days ago did have some nausea (no vomiting) and limited diet briefly. H/o GERD controlled w/ medication - previously Dexilant. No dysphagia, vomiting, abd pain, diarrhea, hematochezia, or melena. Describes h/o constipation previously on Linzess - most recently might be passing hard stool causing rectal pain - has been told he has a hemorrhoid. Trying to avoid stooling because of pain, also doesn't like using the bedpan and moving to bedside commode is difficult. Miralax doesn't work. EGD 04/2016 by / [facility]: Grade IV reflux w/ ulcers and erosions, normal stomach (random biopsy +H. pylori), 1cm duodenal ulcer in immediate post-pyloric bulb. Per outside records, had colonoscopy in 2017 w/ follow-up recommended in [address] Jalloh was asked to see at [facility] for elevated LFTs. Abd US from 11/2020 showed hepatosplenomegaly w/ fatty liver and GB hydrops, normal CBD (4mm). We are asked to see now re: elevated LFTs. No GB or pancreas history. On ASA. Reviewed other notes - mention of gastroparesis and drug/alcohol abuse. Also has DC order. PMH: PMH: COVID, chronic resp failure, CHF (EF 20-25%), KATIUSKA, HTN, HLD, COPD, DM, neuropathy, anxiety, CKD (past HD for NURY), non-compliance, allergic rhinitis, MRSA knee surgery, removal of abdominal cyst, appendectomy, PEG, tracheostomy, cardiac cath, lumbar puncture FH: Family History: No pertinent hx Social History: Smoke: Quit ALCOHOL: other (chart suggests heavy in the past) Drugs: Other (prior PCP and cocaine) ROS: GEN: Denies fevers, chills, sweats HEENT: Denies blurred vision, sore throat CV: Denies chest pain RESP: Denies shortness of air, cough GI: Per HPI : Denies hematuria, dysuria ENDO: Denies weight changes NEURO: Denies confusion, dizziness MSK: +weakness SKIN: Denies jaundice, pruritus Vitals: Vitals: Vital Signs Date Time Temp Pulse Resp B/P (MAP) Pulse Ox O2 Delivery O2 Flow Rate FiO2 01/22/21 11:33 100 Tracheal Collar 8.0 01/22/21 09:02 75 120/63 01/22/21 07:00 97.5 22 97.5 Labs: Labs: Laboratory Tests Test 01/21/21 17:09 01/21/21 20:34 01/22/21 06:05 01/22/21 08:01 Glucose (Fingerstick) 172 mg/dL (70-99) 195 mg/dL (70-99) 132 mg/dL (70-99) White Blood Count 6.5 x10^3/uL (4.0-11.0) Red Blood Count 3.41 x10^6/uL (4.30-5.70) Hemoglobin 9.6 g/dL (13.0-17.5) Hematocrit 29.8 % (39.0-53.0) Mean Corpuscular Volume 87 fL (79-100) Mean Corpuscular Hemoglobin 28 pg (25-35) Mean Corpuscular Hemoglobin Concent 32 g/dL (31-37) Red Cell Distribution Width 15.4 % (11.5-14.5) Platelet Count 217 x10^3/uL (140-400) Neutrophils (%) (Auto) 45 % (31-73) Lymphocytes (%) (Auto) 35 % (24-48) Monocytes (%) (Auto) 11 % (0-9) Eosinophils (%) (Auto) 8 % (0-3) Basophils (%) (Auto) 1 % (0-3) Neutrophils # (Auto) 2.9 x10^3/uL (1.8-7.7) Lymphocytes # (Auto) 2.3 x10^3/uL (1.0-4.8) Monocytes # (Auto) 0.7 x10^3/uL (0.0-1.1) Eosinophils # (Auto) 0.5 x10^3/uL (0.0-0.7) Basophils # (Auto) 0.1 x10^3/uL (0.0-0.2) Sodium Level 135 mmol/L (136-145) Potassium Level 4.3 mmol/L (3.5-5.1) Chloride Level 101 mmol/L (98-107) Carbon Dioxide Level 29 mmol/L (21-32) Anion Gap 5 (6-14) Blood Urea Nitrogen 21 mg/dL (8-26) Creatinine 0.8 mg/dL (0.7-1.3) Estimated GFR (Cockcroft-Gault) 124.8 BUN/Creatinine Ratio 26 (6-20) Glucose Level 151 mg/dL (70-99) Calcium Level 9.3 mg/dL (8.5-10.1) Total Bilirubin 0.3 mg/dL (0.2-1.0) Aspartate Amino Transf (AST/SGOT) 146 U/L (15-37) Alanine Aminotransferase (ALT/SGPT) 241 U/L (16-63) Alkaline Phosphatase 662 U/L (46-116) Total Protein 8.1 g/dL (6.4-8.2) Albumin 2.6 g/dL (3.4-5.0) Albumin/Globulin Ratio 0.5 (1.0-1.7) Test 01/22/21 12:00 Glucose (Fingerstick) 194 mg/dL (70-99) URINE CULTURE Final Final LESS THAN 10,000 CFU/ML Normal genitourinary artur, not indicative of infection on 01/10/21 at 0842 BLOOD CULTURE Final NO GROWTH AFTER 5 DAYS Allergies: Coded Allergies: amoxicillin (Verified Allergy, Intermediate, 05/13/19) clavulanic acid (Verified Allergy, Intermediate, 05/13/19) Imaging: Imaging: CXR Impression: Mild airspace opacities right midlung likely infiltrates. Hip X-Ray IMPRESSION: 1. Mild arthritis left hip. 2. No pelvic fracture or pelvic abnormality. PE: GEN: NAD HEENT: trach collar 8L LUNGS: clear anteriorly HEART: RRR ABD: obese, soft, non-tender EXTREMITY: No edema SKIN: No rashes, no jaundice NEURO/PSYCH: A & O 3 A/P: A/P: Chronic resp failure w/ tracheostomy, h/o COVID (negative now), h/o CHF Chronic anemia (stable), abnormal LFTs (fluctuating) H/o GERD and DU H/o H. pylori - ?treated H/o PEG placement/removal ?gastroparesis Hepatosplenomegaly/fatty liver - on US 11/2020 CRC screen - UTD (2017) H/o constipation Rectal pain, ?hemorrhoid H/o substance abuse BMI 48 -- Recent liver imaging as above. Will discuss next steps w/ Dr. Jalloh. Continue PPI. Can treat constipation more aggressively - consider Relistor, etc. ADILIA CUMMINGS Jan 22, 2021 13:39
--- NOTE | 2021-01-22 14:27 | NUR ---
SW following. Chart reviewed. SW still working on placement at this time. SW will continue to follow.
[2021-01-22 15:00] VITALS: BP 114/66
[2021-01-22 19:00] VITALS: BP 135/64
[2021-01-22] MEDS: MONTELUKAST SODIUM 10 MG TABLET. PO SCH (20:59)
[2021-01-22 23:00] VITALS: BP 163/91
[2021-01-23 03:00] VITALS: BP 168/93
[2021-01-23 04:36] LABS: ALBUMIN 2.6 g/dL (3.4-5.0); ALBUMIN/GLOBULIN RATIO 0.5 (1.0-1.7); CALCIUM 8.9 mg/dL (8.5-10.1); CREATININE 0.9 mg/dL (0.7-1.3); POTASSIUM 4.6 mmol/L (3.5-5.1); TOTAL BILIRUBIN 0.4 mg/dL (0.2-1.0); TOTAL PROTEIN 8.1 g/dL (6.4-8.2)
[2021-01-23] MEDS: HEPARIN for SUB-Q USE 5,000 UNIT/ML VIAL. SQ SCH ×3 (06:50→21:32)
[2021-01-23 07:00] VITALS: BP 134/89
[2021-01-23] MEDS: ASPIRIN ENTERIC COATED 81 MG TABLET.DR. PO SCH (07:48)
[2021-01-23] MEDS: PANTOPRAZOLE 40 MG TABLET.DR. PO SCH (07:48)
[2021-01-23] MEDS: IPRATRPIUM/ALBUTEROL 0.5/2.5MG 3 ML NEBU. NEB SCH ×4 (07:56→19:57)
--- NOTE | 2021-01-23 09:06 | PDOC ---
IM PROGRESS NOTES- Subjective Subjective Has increased dyspnea and congestion. Objective Vitals/I&O Vital Signs Date Time Temp Pulse Resp B/P (MAP) Pulse Ox O2 Delivery O2 Flow Rate FiO2 01/23/21 07:56 98 Tracheal Collar 8.0 01/23/21 07:00 98.2 86 22 134/89 (104) 98.2 I & O 01/22/21 01/22/21 01/23/21 15:00 23:00 07:00 Intake Total 220 ml Output Total 700 ml Balance 220 ml -700 ml Physical Exam Physical Exam General Appearance - alert and in mild distress Chest - decreased breath sounds at bases, bilateral wheezing T-tube with PMV and trach shield Heart - S1 and S2 normal Abdomen - soft, non tender Neurological - alert and oriented Musculoskeletal - generalized weakness Extremities - no edema Labs Laboratory Tests Test 01/22/21 12:00 01/22/21 17:08 01/23/21 03:50 01/23/21 08:10 Glucose (Fingerstick) 194 mg/dL (70-99) H 192 mg/dL (70-99) H 155 mg/dL (70-99) H Sodium Level 134 mmol/L (136-145) L Potassium Level 4.6 mmol/L (3.5-5.1) Chloride Level 100 mmol/L (98-107) Carbon Dioxide Level 30 mmol/L (21-32) Anion Gap 4 (6-14) L Blood Urea Nitrogen 20 mg/dL (8-26) Creatinine 0.9 mg/dL (0.7-1.3) Estimated GFR (Cockcroft-Gault) 109.0 BUN/Creatinine Ratio 22 (6-20) H Glucose Level 198 mg/dL (70-99) H Calcium Level 8.9 mg/dL (8.5-10.1) Total Bilirubin 0.4 mg/dL (0.2-1.0) Aspartate Amino Transferase (AST) 143 U/L (15-37) H Alanine Aminotransferase (ALT) 263 U/L (16-63) H Alkaline Phosphatase 675 U/L (46-116) H Total Protein 8.1 g/dL (6.4-8.2) Albumin 2.6 g/dL (3.4-5.0) L Albumin/Globulin Ratio 0.5 (1.0-1.7) L Laboratory Tests 01/23/21 03:50 Assessment Assessment 1. Fever, etiology not clear. 2. Recent COVID-19 pneumonia. 3. Acute on chronic hypoxic respiratory failure, now on PMV with trach shield, weaned off ventilation. 4. Diabetes mellitus type 2 with neuropathy. 5. Trauma to left foot with partial avulsion of the left second toenail. 6. Congestive heart failure, both diastolic and systolic, currently chronic with ejection fraction of 20-30% and diastolic dysfunction. 7. Hypertension. 8. Anemia. 9. Recent acute kidney injury with chronic kidney disease. 10. Coronary artery disease. 11. Reflux esophagitis. 12. History of drug abuse and alcohol abuse in the past. 13. Bilateral knee osteoarthritis 14. Hyperlipidemia. 15. Severe noncompliance. 16. Super morbid obesity. 17. Anemia. 18. Recent acute metabolic encephalopathy. PLAN: Consult Dr. Harvey for pulmonary evaluation and management. Consult Dr. Duane Torres for Infectious Disease evaluation and because of the fever. The patient currently not on antibiotics. Discussed with rn social services consider placing him in a jail unit when possible. I will order urinalysis, urine culture and blood cultures. Monitor fever. For details, please refer to the orders. Fever resolved. consult Dr. Mohamud- toe injury. Overall improving. Awaiting transfer to a snf. There is a big shortage of tracheostomy beds in nursing homes. Physical deconditioning with neuropathy-continue PT OT. Dose of gabapentin increased. Discussed with Dr. Willis. Patient has bilateral foot drop and needs ankle braces. Diabetic neuropathy-he will need diabetic shoes. Renal function and hyperkalemia are improving. Elevated LFTs getting worse. Consult Dr. Jalloh for GI evaluation and management. He recently had liver imaging. Discussed with Dr. Willis. Transfer to [facility] when accepted. Acute exacerbation of COPD. Give 1 dose of IV Solu-Medrol. Please refer to the discharge summary for more details. Discharge management 35 minutes. Plan Plan For more details regarding further plans, please refer to the orders. Justifications for Admission Other Justification PADDY LINCOLN MD Jan 23, 2021 09:06
[2021-01-23] MEDS ORDERED: methylPREDNISolone SOD SUCC PF 40 MG/ML VIAL. IV ONE (09:45)
--- NOTE | 2021-01-23 09:46 | PDOC ---
PROGRESS NOTES Date of Service DATE: 01/23/21 TIME: 09:44 Subjective Subjective No new complaints. Objective Objective Vital Signs Date Time Temp Pulse Resp B/P (MAP) Pulse Ox O2 Delivery O2 Flow Rate FiO2 01/23/21 07:56 98 Tracheal Collar 8.0 01/23/21 07:00 98.2 86 22 134/89 (104) 98.2 Intake and Output 01/23/21 07:00 Intake Total 220 ml Output Total 700 ml Balance -480 ml Intake Oral 220 ml Output Urine Total 700 ml # Voids 1 # Bowel Movements 1 Physical Exam Physical Exam He is supine in bed and seems comfortable and trach shield in place and no change with his bilateral foot drop. Assessment Assessment Problems Medical Problems: (1) COPD (chronic obstructive pulmonary disease) Status: Acute (2) Tracheostomy in place Status: Acute (3) Weakness Status: Acute Plan Plan of Care Waiting for bilateral AFOs. Comment Review of Relevant I have reviewed the following items mukund (where applicable) has been applied. Labs Laboratory Tests Test 01/21/21 11:20 01/21/21 17:09 01/21/21 20:34 01/22/21 06:05 Glucose (Fingerstick) 211 mg/dL (70-99) 172 mg/dL (70-99) 195 mg/dL (70-99) White Blood Count 6.5 x10^3/uL (4.0-11.0) Red Blood Count 3.41 x10^6/uL (4.30-5.70) Hemoglobin 9.6 g/dL (13.0-17.5) Hematocrit 29.8 % (39.0-53.0) Mean Corpuscular Volume 87 fL (79-100) Mean Corpuscular Hemoglobin 28 pg (25-35) Mean Corpuscular Hemoglobin Concent 32 g/dL (31-37) Red Cell Distribution Width 15.4 % (11.5-14.5) Platelet Count 217 x10^3/uL (140-400) Neutrophils (%) (Auto) 45 % (31-73) Lymphocytes (%) (Auto) 35 % (24-48) Monocytes (%) (Auto) 11 % (0-9) Eosinophils (%) (Auto) 8 % (0-3) Basophils (%) (Auto) 1 % (0-3) Neutrophils # (Auto) 2.9 x10^3/uL (1.8-7.7) Lymphocytes # (Auto) 2.3 x10^3/uL (1.0-4.8) Monocytes # (Auto) 0.7 x10^3/uL (0.0-1.1) Eosinophils # (Auto) 0.5 x10^3/uL (0.0-0.7) Basophils # (Auto) 0.1 x10^3/uL (0.0-0.2) Sodium Level 135 mmol/L (136-145) Potassium Level 4.3 mmol/L (3.5-5.1) Chloride Level 101 mmol/L (98-107) Carbon Dioxide Level 29 mmol/L (21-32) Anion Gap 5 (6-14) Blood Urea Nitrogen 21 mg/dL (8-26) Creatinine 0.8 mg/dL (0.7-1.3) Estimated GFR (Cockcroft-Gault) 124.8 BUN/Creatinine Ratio 26 (6-20) Glucose Level 151 mg/dL (70-99) Calcium Level 9.3 mg/dL (8.5-10.1) Total Bilirubin 0.3 mg/dL (0.2-1.0) Aspartate Amino Transf (AST/SGOT) 146 U/L (15-37) Alanine Aminotransferase (ALT/SGPT) 241 U/L (16-63) Alkaline Phosphatase 662 U/L (46-116) Total Protein 8.1 g/dL (6.4-8.2) Albumin 2.6 g/dL (3.4-5.0) Albumin/Globulin Ratio 0.5 (1.0-1.7) Test 01/22/21 08:01 01/22/21 12:00 01/22/21 17:08 01/23/21 03:50 Glucose (Fingerstick) 132 mg/dL (70-99) 194 mg/dL (70-99) 192 mg/dL (70-99) Sodium Level 134 mmol/L (136-145) Potassium Level 4.6 mmol/L (3.5-5.1) Chloride Level 100 mmol/L (98-107) Carbon Dioxide Level 30 mmol/L (21-32) Anion Gap 4 (6-14) Blood Urea Nitrogen 20 mg/dL (8-26) Creatinine 0.9 mg/dL (0.7-1.3) Estimated GFR (Cockcroft-Gault) 109.0 BUN/Creatinine Ratio 22 (6-20) Glucose Level 198 mg/dL (70-99) Calcium Level 8.9 mg/dL (8.5-10.1) Total Bilirubin 0.4 mg/dL (0.2-1.0) Aspartate Amino Transf (AST/SGOT) 143 U/L (15-37) Alanine Aminotransferase (ALT/SGPT) 263 U/L (16-63) Alkaline Phosphatase 675 U/L (46-116) Total Protein 8.1 g/dL (6.4-8.2) Albumin 2.6 g/dL (3.4-5.0) Albumin/Globulin Ratio 0.5 (1.0-1.7) Test 01/23/21 08:10 Glucose (Fingerstick) 155 mg/dL (70-99) Laboratory Tests Test 01/22/21 12:00 01/22/21 17:08 01/23/21 03:50 01/23/21 08:10 Glucose (Fingerstick) 194 mg/dL (70-99) 192 mg/dL (70-99) 155 mg/dL (70-99) Sodium Level 134 mmol/L (136-145) Potassium Level 4.6 mmol/L (3.5-5.1) Chloride Level 100 mmol/L (98-107) Carbon Dioxide Level 30 mmol/L (21-32) Anion Gap 4 (6-14) Blood Urea Nitrogen 20 mg/dL (8-26) Creatinine 0.9 mg/dL (0.7-1.3) Estimated GFR (Cockcroft-Gault) 109.0 BUN/Creatinine Ratio 22 (6-20) Glucose Level 198 mg/dL (70-99) Calcium Level 8.9 mg/dL (8.5-10.1) Total Bilirubin 0.4 mg/dL (0.2-1.0) Aspartate Amino Transf (AST/SGOT) 143 U/L (15-37) Alanine Aminotransferase (ALT/SGPT) 263 U/L (16-63) Alkaline Phosphatase 675 U/L (46-116) Total Protein 8.1 g/dL (6.4-8.2) Albumin 2.6 g/dL (3.4-5.0) Albumin/Globulin Ratio 0.5 (1.0-1.7) Microbiology 01/08/21 Urine Culture - Final, Complete 01/08/21 Blood Culture - Final, Complete NO GROWTH AFTER 5 DAYS Medications Current Medications Ondansetron HCl (Zofran) 4 mg PRN Q8HRS PRN IVP NAUSEA/VOMITING Last administered on 01/08/21at 12:22; Start 01/07/21 at 21:30; Stop 01/08/21 at 21:29; Status DC Pharmacy Consult (C.diff Med Screen By Rx) 1 each 1X ONCE [facility] ; Start 01/08/21 at 02:45; Stop 01/08/21 at 02:46; Status Cancel Influenza Virus Vaccine Quadrival (Flulaval Quad 1209-4874 Syringe) 0.5 ml ONCE ONCE VAX IM Last administered on 01/08/21at 13:46; Start 01/08/21 at 09:00; Stop 01/08/21 at 09:03; Status DC Aspirin (Ecotrin) 81 mg DAILYWBKFT PO Last administered on 01/23/21at 07:48; Start 01/09/21 at 08:00 Buspirone HCl (Buspar) 5 mg TID PO Last administered on 01/22/21at 21:00; Start 01/08/21 at 09:00 Gabapentin (Neurontin) 300 mg QID PO Last administered on 01/18/21at 09:18; Start 01/08/21 at 09:00; Stop 01/18/21 at 10:00; Status DC Albuterol/ Ipratropium (Duoneb) 3 ml RTQID NEB Last administered on 01/23/21at 07:56; Start 01/08/21 at 12:00 Isosorbide Mononitrate (Imdur) 30 mg DAILY PO Last administered on 01/22/21at 09:02; Start 01/08/21 at 09:00 Magnesium Oxide (Magnesium Oxide) 800 mg BID PO Last administered on 01/22/21at 21:00; Start 01/08/21 at 09:00 Metoprolol Tartrate (Lopressor) 25 mg BID PO Last administered on 01/22/21at 20:59; Start 01/08/21 at 09:00 Montelukast Sodium (Singulair) 10 mg HS PO Last administered on 01/22/21 20:59; Start 01/08/21 at 21:00 Pantoprazole Sodium (Protonix) 40 mg DAILYAC PO Last administered on 01/23/21 07:48; Start 01/08/21 at 09:00 Quetiapine Fumarate (SEROquel) 100 mg TID PO Last administered on 01/22/21 21:00; Start 01/08/21 at 09:00 Senna/Docusate Sodium (Senna Plus) 2 tab BID PO Last administered on 01/22/21 20:59; Start 01/08/21 at 09:00 Bupropion HCl (Wellbutrin Xl) 300 mg DAILY PO Last administered on 01/22/21 09:01; Start 01/08/21 at 09:00 Clonazepam (KlonoPIN) 0.5 mg PRN Q12HRS PRN PO ANXIETY / AGITATION Last administered on 01/22/21 21:16; Start 01/08/21 at 09:15 Duloxetine HCl (Cymbalta) 60 mg DAILY PO Last administered on 01/22/21 09:01; Start 01/08/21 at 09:00 Fluticasone Propionate (Flonase) 2 spray DAILY NS Last administered on 01/22/21 09:03; Start 01/08/21 at 09:00 Non-Formulary Medication (Glucagon,Human Recombinant (Glucagon Emergency Kit)) 1 mg low blood sugar IM ; Start 01/08/21 at 09:00; Status UNV Heparin Sodium (Porcine) (Heparin Sodium) 5,000 unit Q8HRS SQ Last administered on 01/23/21at 06:50; Start 01/08/21 at 14:00 Insulin Glargine (Lantus Syringe) 34 unit BID SQ Last administered on 01/22/21at 21:01; Start 01/08/21 at 09:00 Non-Formulary Medication (Melatonin ) 2 tab QHS PO ; Start 01/08/21 at 21:00; Status UNV Oxycodone HCl (Roxicodone) 15 mg PRN Q6HRS PRN PO MODERATE-SEVERE PAIN Last administered on 01/21/21at 15:46; Start 01/08/21 at 09:15 Acetaminophen (Tylenol) 650 mg PRN Q6HRS PRN PO MILD PAIN / TEMP > 100.3'F; Start 01/08/21 at 09:00 Gabapentin (Neurontin) 600 mg TID PO Last administered on 01/22/21at 20:59; Start 01/18/21 at 14:00 Diclofenac Sodium (Voltaren) 1 chung BID TP Last administered on 01/22/21at 13:48; Start 01/19/21 at 11:00 Methylprednisolone Sodium Succinate (SOLU-Medrol 40MG VIAL) 60 mg 1X ONCE IV ; Start 01/23/21 at 09:45; Stop 01/23/21 at 09:46 Active Scripts Active Gabapentin (Gabapentin) 300 Mg Capsule 600 Mg PO TID 30 Days Lantus Solostar (Insulin Glargine,Hum.rec.anlog) 100 Unit/1 Ml Insuln.pen 34 Unit SQ BID Hold if blood sugar less than 100. Acetaminophen 325 Mg Tablet 650 Mg PO PRN Q6HRS PRN Wellbutrin Xl (Bupropion Hcl) 300 Mg Tab.er.24h 1 Tab PO DAILY Duoneb 0.5-3(2.5) Mg/3 Ml (Albuterol/Ipratropium) 3 Ml Ampul.neb 3 Ml NEB RTQID 30 Days Aspirin Ec (Aspirin) 81 Mg Tablet. 81 Mg PO DAILYWBKFT Reported Glucagon Emergency Kit (Glucagon,Human Recombinant) 1 Mg Kit 1 Mg IM LOW BLOOD SUGAR Cymbalta (Duloxetine Hcl) 60 Mg Capsule.dr 1 Cap PO DAILY Heparin 2,000 Unit/2 Ml Vial (Heparin Sodium,Porcine/Pf) 1,000 Unit/1 Ml Vial 5,000 Unit IJ Q8HRS Isosorbide Mononitrate Er (Isosorbide Mononitrate) 30 Mg Tab.er.24h 1 Tab PO DAILY Clonazepam 1 Mg Tablet 0.5 Mg PO PRN BID PRN Magnesium Oxide 400 Mg Tablet 2 Tab PO BID Melatonin 3 Mg Tab.rapdis 2 Tab PO QHS 30 Days Oxycodone Hcl Immed.release (Oxycodone Hcl) 15 Mg Tablet 15 Mg PO PRN Q6HRS PRN Flonase Allergy Relief (Fluticasone Propionate) 9.9 Ml [place].susp 2 Sprays NS DAILY Seroquel (Quetiapine Fumarate) 100 Mg Tablet 100 Mg PO TID Protonix (Pantoprazole Sodium) 40 Mg Tablet.dr 40 Mg PO DAILYAC Buspirone Hcl 5 Mg Tablet 1 Tab PO TID Senokot-S Tablet (Sennosides/Docusate Sodium) 1 Each Tablet 2 Tab PO BID 30 Days Metoprolol Tartrate 25 Mg Tablet 1 Tab PO BID Singulair Tablet (Montelukast Sodium) 10 Mg Tablet 10 Mg PO HS Vitals/I & O Vital Sign - Last 24 Hours 01/22/21 01/22/21 01/22/21 01/22/21 11:00 11:33 15:00 15:30 Temp 97.7 97.8 97.7 97.8 Pulse 81 63 Resp 18 21 B/P (MAP) 140/80 (100) 114/66 (82) Pulse Ox 99 100 98 99 O2 Delivery Tracheal Collar Tracheal Collar Tracheal Collar Tracheal Collar O2 Flow Rate 8.0 8.0 8.0 8.0 01/22/21 01/22/21 01/22/21 01/22/21 19:00 20:11 20:20 20:59 Temp 98.0 98.0 Pulse 92 92 Resp 18 B/P (MAP) 135/64 (87) 135/64 Pulse Ox 98 98 O2 Delivery Tracheal Collar Trach Collar O2 Flow Rate 8.0 8.0 01/22/21 01/23/21 01/23/21 01/23/21 23:00 03:00 07:00 07:52 Temp 98.7 98.3 98.2 98.7 98.3 98.2 Pulse 99 95 86 Resp 18 18 22 B/P (MAP) 163/91 (115) 168/93 (118) 134/89 (104) Pulse Ox 99 100 100 O2 Delivery Trach Collar O2 Flow Rate 8.0 01/23/21 07:56 Pulse Ox 98 O2 Delivery Tracheal Collar O2 Flow Rate 8.0 Intake and Output 01/22/21 01/22/21 01/23/21 15:00 23:00 07:00 Intake Total 220 ml Output Total 700 ml Balance 220 ml -700 ml Justifications for Admission Other Justification ALVARO RHOADES MD Jan 23, 2021 09:46
[2021-01-23] MEDS: buPROPion XL 150 MG TAB.ER.24H. PO SCH (10:20)
[2021-01-23] MEDS: GABAPENTIN 300 MG CAPSULE. PO SCH ×3 (10:20→21:28)
[2021-01-23] MEDS: QUEtiapine 100 MG TABLET. PO SCH ×3 (10:21→21:28)
[2021-01-23] MEDS: SENNOSIDES/DOCUSATE 8.6/50MG TABLET. PO SCH ×2 (10:21→21:28)
[2021-01-23] MEDS: DULoxetine HCL 30 MG CAPSULE.DR PO SCH (10:21)
[2021-01-23] MEDS: busPIRone 5 MG TABLET. PO SCH ×3 (10:21→21:29)
[2021-01-23] MEDS: MAGNESIUM OXIDE 400 MG TABLET PO SCH ×2 (10:21→21:28)
[2021-01-23] MEDS: ISOSORBIDE MONONITRATE ER 30 MG TAB.ER.24H PO SCH (10:21)
[2021-01-23] MEDS: METOPROLOL TART IMMED RELEASE 25 MG TABLET. PO SCH ×2 (10:22→21:29)
[2021-01-23] MEDS: FLUTICASONE 50MCG/NASAL SPRAY 16GM BOTTLE. NS SCH (10:23)
[2021-01-23] MEDS: INSULIN GLARGINE SYRINGE. SQ SCH ×2 (10:41→21:33)
[2021-01-23 11:00] VITALS: BP 149/83
[2021-01-23] MEDS ORDERED: predniSONE 20 MG TABLET PO ONE (11:00)
--- NOTE | 2021-01-23 11:47 | PDOC ---
Date of Service: DATE: 01/23/21 TIME: 11:42 Subjective: Subjective: Has some breathing complaints but no GI concerns. Objective: Objective: 1 stool charted. Vital Signs: Vital Signs Date Time Temp Pulse Resp B/P (MAP) Pulse Ox O2 Delivery O2 Flow Rate FiO2 01/23/21 10:22 86 134/89 01/23/21 07:56 98 Tracheal Collar 8.0 01/23/21 07:00 98.2 22 98.2 Labs: Laboratory Tests Test 01/22/21 12:00 01/22/21 17:08 01/23/21 03:50 01/23/21 08:10 Glucose (Fingerstick) 194 mg/dL 192 mg/dL 155 mg/dL Sodium Level 134 mmol/L Potassium Level 4.6 mmol/L Chloride Level 100 mmol/L Carbon Dioxide Level 30 mmol/L Anion Gap 4 Blood Urea Nitrogen 20 mg/dL Creatinine 0.9 mg/dL Estimated GFR (Cockcroft-Gault) 109.0 BUN/Creatinine Ratio 22 Glucose Level 198 mg/dL Calcium Level 8.9 mg/dL Total Bilirubin 0.4 mg/dL Aspartate Amino Transf (AST/SGOT) 143 U/L Alanine Aminotransferase (ALT/SGPT) 263 U/L Alkaline Phosphatase 675 U/L Total Protein 8.1 g/dL Albumin 2.6 g/dL Albumin/Globulin Ratio 0.5 PE: GEN: NAD LUNGS: trach collar, bit diminished HEART: RRR ABD: large, soft, non-tender NEURO/PSYCH: A & O 3 A/P: Chronic resp failure Abnormal LFTs (fluctuating) - suspect medication effect, CHF, fatty liver H/o GERD, PUD, constipation -- AMA pending, follow labs. Justicifation of Admission Dx: Justifications for Admission: Justification of Admission Dx: Comment: (Acute on chronic hypoxic respiratory failure) ADILIA CUMMINGS Jan 23, 2021 11:47
[2021-01-23 15:00] VITALS: BP 149/83
--- NOTE | 2021-01-23 16:05 | NUR ---
SW following. Discussed with RN, [facility] does not take [facility]s. [facility] does, but do not have any available beds. [facility] do take trachs and have a bed. SW faxed referral, awaiting acceptance decision. JOSE DANIEL will continue to follow.
[2021-01-23 19:00] VITALS: BP 154/83
[2021-01-23] MEDS: DICLOFENAC SODIUM 1% TOPICAL GEL 100GM TUBE. TP SCH (21:00)
[2021-01-23] MEDS: MONTELUKAST SODIUM 10 MG TABLET. PO SCH (21:28)
[2021-01-23] MEDS: clonazePAM 0.5 MG TABLET PO PRN (21:28)
[2021-01-23] MEDS: oxyCODONE IR 5 MG TABLET PO PRN (21:45)
[2021-01-23 23:00] VITALS: BP 171/94
[2021-01-24 03:00] VITALS: BP 162/89
[2021-01-24] MEDS: HEPARIN for SUB-Q USE 5,000 UNIT/ML VIAL. SQ SCH ×3 (05:21→23:25)
[2021-01-24 07:00] VITALS: BP 169/106
[2021-01-24] MEDS: IPRATRPIUM/ALBUTEROL 0.5/2.5MG 3 ML NEBU. NEB SCH ×4 (07:25→20:41)
[2021-01-24] MEDS: PANTOPRAZOLE 40 MG TABLET.DR. PO SCH (07:55)
[2021-01-24] MEDS: ASPIRIN ENTERIC COATED 81 MG TABLET.DR. PO SCH (07:55)
--- NOTE | 2021-01-24 08:31 | PDOC ---
IM PROGRESS NOTES- Subjective Subjective Has increased dyspnea and congestion. Objective Vitals/I&O Vital Signs Date Time Temp Pulse Resp B/P (MAP) Pulse Ox O2 Delivery O2 Flow Rate FiO2 01/24/21 07:58 Trach Collar 8.0 01/24/21 07:25 98 01/24/21 03:00 98.3 81 18 162/89 (113) 98.3 I & O 01/23/21 01/23/21 01/24/21 15:00 23:00 07:00 Intake Total 0 ml Output Total 800 ml 1150 ml 700 ml Balance -800 ml -1150 ml -700 ml Physical Exam Physical Exam General Appearance - alert and in no distress Chest - decreased breath sounds at bases, occasional rhonchi. Has tracheostomy tube with PMV and trach shield. Heart - S1 and S2 normal Abdomen - soft, non tender Neurological - alert and oriented Musculoskeletal - generalized weakness Extremities - no edema Labs Laboratory Tests Test 01/23/21 12:00 01/23/21 17:11 01/23/21 20:57 Glucose (Fingerstick) 206 mg/dL (70-99) H 259 mg/dL (70-99) H 306 mg/dL (70-99) H Meds Current Medications Medications (Trade) Dose Ordered Sig/Linden Route PRN Reason Start Time Stop Time Status Last Admin Dose Admin Prednisone (Prednisone) 60 mg 1X ONCE PO 01/23/21 11:00 01/23/21 11:01 DC 01/23/21 11:05 Assessment Assessment 1. Fever, etiology not clear. 2. Recent COVID-19 pneumonia. 3. Acute on chronic hypoxic respiratory failure, now on PMV with trach shield, weaned off ventilation. 4. Diabetes mellitus type 2 with neuropathy. 5. Trauma to left foot with partial avulsion of the left second toenail. 6. Congestive heart failure, both diastolic and systolic, currently chronic with ejection fraction of 20-30% and diastolic dysfunction. 7. Hypertension. 8. Anemia. 9. Recent acute kidney injury with chronic kidney disease. 10. Coronary artery disease. 11. Reflux esophagitis. 12. History of drug abuse and alcohol abuse in the past. 13. Bilateral knee osteoarthritis 14. Hyperlipidemia. 15. Severe noncompliance. 16. Super morbid obesity. 17. Anemia. 18. Recent acute metabolic encephalopathy. PLAN: Consult Dr. Harvey for pulmonary evaluation and management. Consult Dr. Duane Torres for Infectious Disease evaluation and because of the fever. The patient currently not on antibiotics. Discussed with clinical social work therapist consider placing him in a custodial unit when possible. I will order urinalysis, urine culture and blood cultures. Monitor fever. For details, please refer to the orders. Fever resolved. consult Dr. Mohamud- toe injury. He debrided his nails. Avulsion injury of the toenail improving. Physical deconditioning with neuropathy-continue PT OT. Dose of gabapentin increased. Discussed with Dr. Willis. Patient has bilateral foot drop and needs ankle braces. Diabetic neuropathy-he will need diabetic shoes. Blood sugar elevated due to steroids.Increase insulin. Renal function and hyperkalemia are improving. Elevated LFTs getting worse. Consult Dr. Jalloh for GI evaluation and manag ement. He recently had liver imaging. LFTs elevated due to medication effect, fatty liver and CHF. Discussed with Dr. Willis. Transfer to SNF when accepted. Acute exacerbation of COPD. Improving. Prednisone 20 mg daily for 7 days. Patient is a tracheostomy tube with PMV. Patient is advised to follow-up with Dr. Harvey as outpatient when discharged from the correction. I have recommended to him that he may benefit from leaving the tracheostomy tube in, permanently because he also has obstructive sleep apnea. He should discuss this with her lathe turner as outpatient. Please refer to the discharge summary for more details. Discharge management 35 minutes. Plan Plan For more details regarding further plans, please refer to the orders. Justifications for Admission Other Justification PADDY LINCOLN MD Jan 24, 2021 08:31
[2021-01-24] MEDS ORDERED: INSU100I13 SQ (09:03)
[2021-01-24] MEDS ORDERED: PRED20TA PO (09:03)
--- NOTE | 2021-01-24 09:14 | PDOC ---
PROGRESS NOTES Date of Service DATE: 01/24/21 TIME: 09:11 Subjective Subjective No new complaints. Objective Objective Vital Signs Date Time Temp Pulse Resp B/P (MAP) Pulse Ox O2 Delivery O2 Flow Rate FiO2 01/24/21 07:58 Trach Collar 8.0 01/24/21 07:25 98 01/24/21 03:00 98.3 81 18 162/89 (113) 98.3 Intake and Output 01/24/21 07:00 Intake Total 0 ml Output Total 2650 ml Balance -2650 ml Intake Oral 0 ml Output Urine Total 2650 ml Physical Exam Physical Exam He is supine in bed and he did transfer with minimal assistance with physical therapy yesterday. He has not received his bilateral ankle foot braces to support his ankles with bilateral foot drop. Assessment Assessment Problems Medical Problems: (1) COPD (chronic obstructive pulmonary disease) Status: Acute (2) Tracheostomy in place Status: Acute (3) Weakness Status: Acute Plan Plan of Care Waiting for ankle braces and placement. Comment Review of Relevant I have reviewed the following items mukund (where applicable) has been applied. Labs Laboratory Tests Test 01/22/21 12:00 01/22/21 17:08 01/23/21 03:50 01/23/21 08:10 Glucose (Fingerstick) 194 mg/dL (70-99) 192 mg/dL (70-99) 155 mg/dL (70-99) Sodium Level 134 mmol/L (136-145) Potassium Level 4.6 mmol/L (3.5-5.1) Chloride Level 100 mmol/L (98-107) Carbon Dioxide Level 30 mmol/L (21-32) Anion Gap 4 (6-14) Blood Urea Nitrogen 20 mg/dL (8-26) Creatinine 0.9 mg/dL (0.7-1.3) Estimated GFR (Cockcroft-Gault) 109.0 BUN/Creatinine Ratio 22 (6-20) Glucose Level 198 mg/dL (70-99) Calcium Level 8.9 mg/dL (8.5-10.1) Total Bilirubin 0.4 mg/dL (0.2-1.0) Aspartate Amino Transf (AST/SGOT) 143 U/L (15-37) Alanine Aminotransferase (ALT/SGPT) 263 U/L (16-63) Alkaline Phosphatase 675 U/L (46-116) Total Protein 8.1 g/dL (6.4-8.2) Albumin 2.6 g/dL (3.4-5.0) Albumin/Globulin Ratio 0.5 (1.0-1.7) Test 01/23/21 12:00 01/23/21 17:11 01/23/21 20:57 01/24/21 08:32 Glucose (Fingerstick) 206 mg/dL (70-99) 259 mg/dL (70-99) 306 mg/dL (70-99) 237 mg/dL (70-99) Laboratory Tests Test 01/23/21 12:00 01/23/21 17:11 01/23/21 20:57 01/24/21 08:32 Glucose (Fingerstick) 206 mg/dL (70-99) 259 mg/dL (70-99) 306 mg/dL (70-99) 237 mg/dL (70-99) Microbiology 01/08/21 Urine Culture - Final, Complete 01/08/21 Blood Culture - Final, Complete NO GROWTH AFTER 5 DAYS Medications Current Medications Ondansetron HCl (Zofran) 4 mg PRN Q8HRS PRN IVP NAUSEA/VOMITING Last administered on 01/08/21at 12:22; Start 01/07/21 at 21:30; Stop 01/08/21 at 21:2 9; Status DC Pharmacy Consult (C.diff Med Screen By Rx) 1 each 1X ONCE [facility] ; Start 01/08/21 at 02:45; Stop 01/08/21 at 02:46; Status Cancel Influenza Virus Vaccine Quadrival (Flulaval Quad [id number] Syringe) 0.5 ml ONCE ONCE VAX IM Last administered on 01/08/21at 13:46; Start 01/08/21 at 09:00; Stop 01/08/21 at 09:03; Status DC Aspirin (Ecotrin) 81 mg DAILYWBKFT PO Last administered on 01/24/21at 07:55; Start 01/09/21 at 08:00 Buspirone HCl (Buspar) 5 mg TID PO Last administered on 01/23/21at 21:29; S tart 01/08/21 at 09:00 Gabapentin (Neurontin) 300 mg QID PO Last administered on 01/18/21at 09:18; Start 01/08/21 at 09:00; Stop 01/18/21 at 10:00; Status DC Albuterol/ Ipratropium (Duoneb) 3 ml RTQID NEB Last administered on 01/24/21at 07:25; Start 01/08/21 at 12:00 Isosorbide Mononitrate (Imdur) 30 mg DAILY PO Last administered on 01/23/21at 10:21; Start 01/08/21 at 09:00 Magnesium Oxide (Magnesium Oxide) 800 mg BID PO Last administered on 01/23/21 21:28; Start 01/08/21 at 09:00 Metoprolol Tartrate (Lopressor) 25 mg BID PO Last administered on 01/23/21 21:29; Start 01/08/21 at 09:00 Montelukast Sodium (Singulair) 10 mg HS PO Last administered on 01/23/21 21:28; Start 01/08/21 at 21:00 Pantoprazole Sodium (Protonix) 40 mg DAILYAC PO Last administered on 01/24/21at 07:55; Start 01/08/21 at 09:00 Quetiapine Fumarate (SEROquel) 100 mg TID PO Last administered on 01/23/21 21:28; Start 01/08/21 at 09:00 Senna/Docusate Sodium (Senna Plus) 2 tab BID PO Last administered on 01/23/21 21:28; Start 01/08/21 at 09:00 Bupropion HCl (Wellbutrin Xl) 300 mg DAILY PO Last administered on 01/23/21 10:20; Start 01/08/21 at 09:00 Clonazepam (KlonoPIN) 0.5 mg PRN Q12HRS PRN PO ANXIETY / AGITATION Last administered on 01/23/21 21:28; Start 01/08/21 at 09:15 Duloxetine HCl (Cymbalta) 60 mg DAILY PO Last administered on 01/23/21 10:21; Start 01/08/21 at 09:00 Fluticasone Propionate (Flonase) 2 spray DAILY NS Last administered on 01/23/21at 10:23; Start 01/08/21 at 09:00 Non-Formulary Medication (Glucagon,Human Recombinant (Glucagon Emergency Kit)) 1 mg low blood sugar IM ; Start 01/08/21 at 09:00; Status UNV Heparin Sodium (Porcine) (Heparin Sodium) 5,000 unit Q8HRS SQ Last administered on 01/24/21at 05:21; Start 01/08/21 at 14:00 Insulin Glargine (Lantus Syringe) 34 unit BID SQ Last administered on 01/23/21at 21:33; Start 01/08/21 at 09:00; Stop 01/24/21 at 08:52; Status DC Non-Formulary Medication (Melatonin ) 2 tab QHS PO ; Start 01/08/21 at 21:00; Status UNV Oxycodone HCl (Roxicodone) 15 mg PRN Q6HRS PRN PO MODERATE-SEVERE PAIN Last administered on 01/23/21at 21:45; Start 01/08/21 at 09:15 Acetaminophen (Tylenol) 650 mg PRN Q6HRS PRN PO MILD PAIN / TEMP > 100.3'F; Start 01/08/21 at 09:00 Gabapentin (Neurontin) 600 mg TID PO Last administered on 01/23/21at 21:28; Start 01/18/21 at 14:00 Diclofenac Sodium (Voltaren) 1 chung BID TP Last administered on 01/23/21at 21:00; Start 01/19/21 at 11:00 Methylprednisolone Sodium Succinate (SOLU-Medrol 40MG VIAL) 60 mg 1X ONCE IV ; Start 01/23/21 at 09:45; Stop 01/23/21 at 10:57; Status DC Prednisone (Prednisone) 60 mg 1X ONCE PO Last administered on 01/23/21at 11:05; Start 01/23/21 at 11:00; Stop 01/23/21 at 11:01; Status DC Insulin Glargine (Lantus Syringe) 36 unit BID SQ ; Start 01/24/21 at 09:30 Prednisone (Prednisone) 20 mg DAILY PO ; Start 01/24/21 at 09:00 Active Scripts Active Prednisone 20 Mg Tablet 1 Tab PO DAILY Lantus Solostar (Insulin Glargine,Hum.rec.anlog) 100 Unit/1 Ml Insuln.pen 36 Unit SQ BID Hold if blood sugar less than 100. Gabapentin (Gabapentin) 300 Mg Capsule 600 Mg PO TID 30 Days Acetaminophen 325 Mg Tablet 650 Mg PO PRN Q6HRS PRN Wellbutrin Xl (Bupropion Hcl) 300 Mg Tab.er.24h 1 Tab PO DAILY Duoneb 0.5-3(2.5) Mg/3 Ml (Albuterol/Ipratropium) 3 Ml Ampul.neb 3 Ml NEB RTQID 30 Days Aspirin Ec (Aspirin) 81 Mg Tablet. 81 Mg PO DAILYWBKFT Reported Glucagon Emergency Kit (Glucagon,Human Recombinant) 1 Mg Kit 1 Mg IM LOW BLOOD SUGAR Cymbalta (Duloxetine Hcl) 60 Mg Capsule.dr 1 Cap PO DAILY Heparin 2,000 Unit/2 Ml Vial (Heparin Sodium,Porcine/Pf) 1,000 Unit/1 Ml Vial 5,000 Unit IJ Q8HRS Isosorbide Mononitrate Er (Isosorbide Mononitrate) 30 Mg Tab.er.24h 1 Tab PO DAILY Clonazepam 1 Mg Tablet 0.5 Mg PO PRN BID PRN Magnesium Oxide 400 Mg Tablet 2 Tab PO BID Melatonin 3 Mg Tab.rapdis 2 Tab PO QHS 30 Days Oxycodone Hcl Immed.release (Oxycodone Hcl) 15 Mg Tablet 15 Mg PO PRN Q6HRS PRN Flonase Allergy Relief (Fluticasone Propionate) 9.9 Ml [place].susp 2 Sprays NS DAILY Seroquel (Quetiapine Fumarate) 100 Mg Tablet 100 Mg PO TID Protonix (Pantoprazole Sodium) 40 Mg Tablet. 40 Mg PO DAILYAC Buspirone Hcl 5 Mg Tablet 1 Tab PO TID Senokot-S Tablet (Sennosides/Docusate Sodium) 1 Each Tablet 2 Tab PO BID 30 Days Metoprolol Tartrate 25 Mg Tablet 1 Tab PO BID Singulair Tablet (Montelukast Sodium) 10 Mg Tablet 10 Mg PO HS Vitals/I & O Vital Sign - Last 24 Hours 01/23/21 01/23/21 01/23/21 01/23/21 10: 10: 11:00 11:42 Temp 98.7 98.7 Pulse 86 86 90 Resp 21 B/P (MAP) 134/89 134/89 149/83 (105) Pulse Ox 99 O2 Delivery Tracheal Collar O2 Flow Rate 8.0 01/23/21 01/23/21 01/23/21 01/23/21 15:00 15:42 19:00 19:56 Temp 98.7 98.6 98.7 98.6 Pulse 90 92 Resp 21 16 B/P (MAP) 149/83 (105) 154/83 (106) Pulse Ox 99 99 98 O2 Delivery Tracheal Collar Tracheal Collar Tracheal Collar O2 Flow Rate 8.0 8.0 8.0 01/23/21 01/23/21 01/23/21 01/24/21 20:00 21:29 23:00 03:00 Temp 98.4 98.3 98.4 98.3 Pulse 92 99 81 Resp 18 18 B/P (MAP) 154/83 171/94 (119) 162/89 (113) Pulse Ox 100 99 O2 Delivery Trach Collar Tracheal Collar Tracheal Collar O2 Flow Rate 8.0 8.0 8.0 01/24/21 01/24/21 07:25 07:58 Pulse Ox 98 O2 Delivery Tracheal Collar Trach Collar O2 Flow Rate 8.0 8.0 Intake and Output 01/23/21 01/23/21 01/24/21 15:00 23:00 07:00 Intake Total 0 ml Output Total 800 ml 1150 ml 700 ml Balance -800 ml -1150 ml -700 ml Justifications for Admission Other Justification ALVARO RHOADES MD Jan 24, 2021 09:13
[2021-01-24] MEDS: FLUTICASONE 50MCG/NASAL SPRAY 16GM BOTTLE. NS SCH (09:19)
[2021-01-24] MEDS: GABAPENTIN 300 MG CAPSULE. PO SCH ×3 (09:20→21:50)
[2021-01-24] MEDS: DULoxetine HCL 30 MG CAPSULE.DR PO SCH (09:20)
[2021-01-24] MEDS: MAGNESIUM OXIDE 400 MG TABLET PO SCH ×2 (09:20→21:49)
[2021-01-24] MEDS: SENNOSIDES/DOCUSATE 8.6/50MG TABLET. PO SCH ×2 (09:20→21:50)
[2021-01-24] MEDS: DICLOFENAC SODIUM 1% TOPICAL GEL 100GM TUBE. TP SCH ×2 (09:20→21:00)
[2021-01-24] MEDS: busPIRone 5 MG TABLET. PO SCH ×3 (09:21→21:50)
[2021-01-24] MEDS: QUEtiapine 100 MG TABLET. PO SCH ×3 (09:21→21:50)
[2021-01-24] MEDS: buPROPion XL 150 MG TAB.ER.24H. PO SCH (09:21)
[2021-01-24] MEDS: METOPROLOL TART IMMED RELEASE 25 MG TABLET. PO SCH ×2 (09:45→21:50)
[2021-01-24] MEDS: ISOSORBIDE MONONITRATE ER 30 MG TAB.ER.24H PO SCH (09:45)
[2021-01-24] MEDS: predniSONE 20 MG TABLET PO SCH (09:45)
[2021-01-24] MEDS: INSULIN GLARGINE SYRINGE. SQ SCH ×2 (09:47→23:25)
--- NOTE | 2021-01-24 10:47 | PDOC ---
Date of Service: DATE: 01/24/21 TIME: 10:43 Subjective: Subjective: Didn't sleep well - lots of anxiety because he's supposed to leave today. Objective: Vital Signs: Vital Signs Date Time Temp Pulse Resp B/P (MAP) Pulse Ox O2 Delivery O2 Flow Rate FiO2 01/24/21 09:45 96 169/106 01/24/21 07:58 Trach Collar 8.0 01/24/21 07:25 98 01/24/21 07:00 97.5 22 97.5 Labs: Laboratory Tests Test 01/23/21 12:00 01/23/21 17:11 01/23/21 20:57 01/24/21 08:32 Glucose (Fingerstick) 206 mg/dL 259 mg/dL 306 mg/dL 237 mg/dL PE: GEN: NAD LUNGS: trach collar HEART: RRR ABD: large, soft, non-tender NEURO/PSYCH: A & O 3 A/P: Chronic resp failure Abnormal LFTs H/o CHF H/o GERD, PUD, constipation, fatty liver -- AMAb pending - can follow-up as outpt. DC per primary. Justicifation of Admission Dx: Justifications for Admission: Justification of Admission Dx: Comment: (Acute on chronic hypoxic respiratory failure) ADILIA CUMMINGS Jan 24, 2021 10:47
[2021-01-24 11:00] VITALS: BP 144/85
[2021-01-24 15:00] VITALS: BP 135/81
[2021-01-24 20:15] VITALS: BP 162/86
[2021-01-24] MEDS: oxyCODONE IR 5 MG TABLET PO PRN (21:49)
[2021-01-24] MEDS: clonazePAM 0.5 MG TABLET PO PRN (21:50)
[2021-01-24] MEDS: MONTELUKAST SODIUM 10 MG TABLET. PO SCH (21:50)
[2021-01-24 22:09] LABS: IMMUNOGLOBULIN A 456 mg/dL (90-386); IMMUNOGLOBULIN G 2702 mg/dL (603-1613); IMMUNOGLOBULIN M 49 mg/dL (20-172)
[2021-01-25] VITALS (7 sets, daily range): BP systolic 114–171; BP diastolic 56–92
[2021-01-25] MEDS: HEPARIN for SUB-Q USE 5,000 UNIT/ML VIAL. SQ SCH ×3 (06:16→21:05)
[2021-01-25] MEDS: IPRATRPIUM/ALBUTEROL 0.5/2.5MG 3 ML NEBU. NEB SCH ×4 (07:53→20:09)
--- NOTE | 2021-01-25 09:31 | PDOC ---
PROGRESS NOTES Date of Service DATE: 01/25/21 TIME: 09:29 Subjective Subjective No new complaints. Objective Objective Vital Signs Date Time Temp Pulse Resp B/P (MAP) Pulse Ox O2 Delivery O2 Flow Rate FiO2 01/25/21 07:54 100 Tracheal Collar 8.0 01/25/21 07:00 97.8 82 28 146/81 (102) 97.8 Intake and Output 01/25/21 07:00 Intake Total 640 ml Output Total 1400 ml Balance -760 ml Intake Oral 640 ml Output Urine Total 1400 ml Physical Exam Physical Exam He is alert,supine in bed with trach shield and he is getting up with therapy bu t unable to walk secondary to bilateral foot drop and he has not received his bilateral ankle foot braces yet. Assessment Assessment Problems Medical Problems: (1) COPD (chronic obstructive pulmonary disease) Status: Acute (2) Tracheostomy in place Status: Acute (3) Weakness Status: Acute Plan Plan of Care Waiting for his AFOs. Comment Review of Relevant I have reviewed the following items mukund (where applicable) has been applied. Labs Laboratory Tests Test 01/23/21 12:00 01/23/21 17:11 01/23/21 20:57 01/24/21 08:32 Glucose (Fingerstick) 206 mg/dL (70-99) 259 mg/dL (70-99) 306 mg/dL (70-99) 237 mg/dL (70-99) Test 01/24/21 11:45 01/24/21 12:06 01/24/21 16:32 01/24/21 21:15 Immunoglobulin G 2702 mg/dL (603-1613) Immunoglobulin A 456 mg/dL (90-386) Immunoglobulin M 49 mg/dL (20-172) Glucose (Fingerstick) 241 mg/dL (70-99) 294 mg/dL (70-99) 290 mg/dL (70-99) Test 01/25/21 07:36 Glucose (Fingerstick) 172 mg/dL (70-99) Laboratory Tests Test 01/24/21 11:45 01/24/21 12:06 01/24/21 16:32 01/24/21 21:15 Immunoglobulin G 2702 mg/dL (603-1613) Immunoglobulin A 456 mg/dL (90-386) Immunoglobulin M 49 mg/dL (20-172) Glucose (Fingerstick) 241 mg/dL (70-99) 294 mg/dL (70-99) 290 mg/dL (70-99) Test 01/25/21 07:36 Glucose (Fingerstick) 172 mg/dL (70-99) Microbiology 01/08/21 Urine Culture - Final, Complete 01/08/21 Blood Culture - Final, Complete NO GROWTH AFTER 5 DAYS Medications Current Medications Ondansetron HCl (Zofran) 4 mg PRN Q8HRS PRN IVP NAUSEA/VOMITING Last administered on 01/08/21at 12:22; Start 01/07/21 at 21:30; Stop 01/08/21 at 21:29; Status DC Pharmacy Consult (C.diff Med Screen By Rx) 1 each 1X ONCE [facility] ; Start 01/08/21 at 02:45; Stop 01/08/21 at 02:46; Status Cancel Influenza Virus Vaccine Quadrival (Flulaval Quad [id number] Syringe) 0.5 ml ONCE ONCE VAX IM Last administered on 01/08/21at 13:46; Start 01/08/21 at 09:00; Stop 01/08/21 at 09:03; Status DC Aspirin (Ecotrin) 81 mg DAILYWBKFT PO Last administered on 01/24/21at 07:55; Start 01/09/21 at 08:00 Buspirone HCl (Buspar) 5 mg TID PO Last administered on 01/24/21at 21:50; Start 01/08/21 at 09:00 Gabapentin (Neurontin) 300 mg QID PO Last administered on 01/18/21at 09:18; Start 01/08/21 at 09:00; Stop 01/18/21 at 10:00; Status DC Albuterol/ Ipratropium (Duoneb) 3 ml RTQID NEB Last administered on 01/25/21at 07:53; Start 01/08/21 at 12:00 Isosorbide Mononitrate (Imdur) 30 mg DAILY PO Last administered on 01/24/21at 09:45; Start 01/08/21 at 09:00 Magnesium Oxide (Magnesium Oxide) 800 mg BID PO Last administered on 01/24/21at 21:49; Start 01/08/21 at 09:00 Metoprolol Tartrate (Lopressor) 25 mg BID PO Last administered on 01/24/21 21:50; Start 01/08/21 at 09:00 Montelukast Sodium (Singulair) 10 mg HS PO Last administered on 01/24/21 21:50; Start 01/08/21 at 21:00 Pantoprazole Sodium (Protonix) 40 mg DAILYAC PO Last administered on 01/24/21at 07:55; Start 01/08/21 at 09:00 Quetiapine Fumarate (SEROquel) 100 mg TID PO Last administered on 01/24/21at 21:50; Start 01/08/21 at 09:00 Senna/Docusate Sodium (Senna Plus) 2 tab BID PO Last administered on 01/24/21 21:50; Start 01/08/21 at 09:00 Bupropion HCl (Wellbutrin Xl) 300 mg DAILY PO Last administered on 01/24/21 09:21; Start 01/08/21 at 09:00 Clonazepam (KlonoPIN) 0.5 mg PRN Q12HRS PRN PO ANXIETY / AGITATION Last administered on 01/24/21at 21:50; Start 01/08/21 at 09:15 Duloxetine HCl (Cymbalta) 60 mg DAILY PO Last administered on 01/24/21 09:20; Start 01/08/21 at 09:00 Fluticasone Propionate (Flonase) 2 spray DAILY NS Last administered on 01/24/21at 09:19; Start 01/08/21 at 09:00 Non-Formulary Medication (Glucagon,Human Recombinant (Glucagon Emergency Kit)) 1 mg low blood sugar IM ; Start 01/08/21 at 09:00; Status UNV Heparin Sodium (Porcine) (Heparin Sodium) 5,000 unit Q8HRS SQ Last administered on 01/25/21at 06:16; Start 01/08/21 at 14:00 Insulin Glargine (Lantus Syringe) 34 unit BID SQ Last administered on 01/23/21at 21:33; Start 01/08/21 at 09:00; Stop 01/24/21 at 08:52; Status DC Non-Formulary Medication (Melatonin ) 2 tab QHS PO ; Start 01/08/21 at 21:00; Status UNV Oxycodone HCl (Roxicodone) 15 mg PRN Q6HRS PRN PO MODERATE-SEVERE PAIN Last administered on 01/24/21at 21:49; Start 01/08/21 at 09:15 Acetaminophen (Tylenol) 650 mg PRN Q6HRS PRN PO MILD PAIN / TEMP > 100.3'F; Start 01/08/21 at 09:00 Gabapentin (Neurontin) 600 mg TID PO Last administered on 01/24/21at 21:50; Start 01/18/21 at 14:00 Diclofenac Sodium (Voltaren) 1 chung BID TP Last administered on 01/24/21at 21:00; Start 01/19/21 at 11:00 Methylprednisolone Sodium Succinate (SOLU-Medrol 40MG VIAL) 60 mg 1X ONCE IV ; Start 01/23/21 at 09:45; Stop 01/23/21 at 10:57; Status DC Prednisone (Prednisone) 60 mg 1X ONCE PO Last administered on 01/23/21at 11:05; Start 01/23/21 at 11:00; Stop 01/23/21 at 11:01; Status DC Insulin Glargine (Lantus Syringe) 36 unit BID SQ Last administered on 01/24/21at 23:25; Start 01/24/21 at 09:30 Prednisone (Prednisone) 20 mg DAILY PO Last administered on 01/24/21at 09:45; Start 01/24/21 at 09:00 Active Scripts Active Prednisone 20 Mg Tablet 1 Tab PO DAILY Lantus Solostar (Insulin Glargine,Hum.rec.anlog) 100 Unit/1 Ml Insuln.pen 36 Unit SQ BID Hold if blood sugar less than 100. Gabapentin (Gabapentin) 300 Mg Capsule 600 Mg PO TID 30 Days Acetaminophen 325 Mg Tablet 650 Mg PO PRN Q6HRS PRN Wellbutrin Xl (Bupropion Hcl) 300 Mg Tab.er.24h 1 Tab PO DAILY Duoneb 0.5-3(2.5) Mg/3 Ml (Albuterol/Ipratropium) 3 Ml Ampul.neb 3 Ml NEB RTQID 30 Days Aspirin Ec (Aspirin) 81 Mg Tablet. 81 Mg PO DAILYWBKFT Reported Glucagon Emergency Kit (Glucagon,Human Recombinant) 1 Mg Kit 1 Mg IM LOW BLOOD SUGAR Cymbalta (Duloxetine Hcl) 60 Mg Capsule. 1 Cap PO DAILY Heparin 2,000 Unit/2 Ml Vial (Heparin Sodium,Porcine/Pf) 1,000 Unit/1 Ml Vial 5,000 Unit IJ Q8HRS Isosorbide Mononitrate Er (Isosorbide Mononitrate) 30 Mg Tab.er.24h 1 Tab PO DAILY Clonazepam 1 Mg Tablet 0.5 Mg PO PRN BID PRN Magnesium Oxide 400 Mg Tablet 2 Tab PO BID Melatonin 3 Mg Tab.rapdis 2 Tab PO QHS 30 Days Oxycodone Hcl Immed.release (Oxycodone Hcl) 15 Mg Tablet 15 Mg PO PRN Q6HRS PRN Flonase Allergy Relief (Fluticasone Propionate) 9.9 Ml Celestine.susp 2 Sprays NS DAILY Seroquel (Quetiapine Fumarate) 100 Mg Tablet 100 Mg PO TID Protonix (Pantoprazole Sodium) 40 Mg Tablet.dr 40 Mg PO DAILYAC Buspirone Hcl 5 Mg Tablet 1 Tab PO TID Senokot-S Tablet (Sennosides/Docusate Sodium) 1 Each Tablet 2 Tab PO BID 30 Days Metoprolol Tartrate 25 Mg Tablet 1 Tab PO BID Singulair Tablet (Montelukast Sodium) 10 Mg Tablet 10 Mg PO HS Vitals/I & O Vital Sign - Last 24 Hours 01/24/21 01/24/21 01/24/21 01/24/21 09:45 09:45 11:00 11:22 Temp 98.4 98.4 Pulse 96 96 85 Resp 20 B/P (MAP) 169/106 169/106 144/85 (104) Pulse Ox 98 O2 Delivery Tracheal Collar Tracheal Collar O2 Flow Rate 8.0 8.0 01/24/21 01/24/21 01/24/21 01/24/21 15:00 15:44 20:15 20:15 Temp 97.8 97.9 97.8 97.9 Pulse 84 86 Resp 21 18 B/P (MAP) 135/81 (99) 162/86 (111) Pulse Ox 98 98 98 O2 Delivery Tracheal Collar Tracheal Collar Tracheal Collar Trach Collar O2 Flow Rate 8.0 8.0 8.0 8.0 01/24/21 01/24/21 01/24/21 01/24/21 20:41 21:49 21:50 22:19 Pulse 84 B/P (MAP) 135/81 Pulse Ox 98 98 96 O2 Delivery Tracheal Collar O2 Flow Rate 8.0 8.0 8.0 01/25/21 01/25/21 01/25/21 01/25/21 00:00 03:30 07:00 07:54 Temp 98.1 97.6 97.8 98.1 97.6 97.8 Pulse 82 80 82 Resp 18 17 28 B/P (MAP) 156/87 (110) 114/77 (89) 146/81 (102) Pulse Ox 96 98 100 100 O2 Delivery Tracheal Collar Tracheal Collar Tracheal Collar Tracheal Collar O2 Flow Rate 8.0 8.0 8.0 8.0 Intake and Output 01/24/21 01/24/21 01/25/21 15:00 23:00 07:00 Intake Total 400 ml 240 ml Output Total 800 ml 600 ml Balance -400 ml -360 ml Justifications for Admission Other Justification ALVARO RHOADES MD Jan 25, 2021 09:31
[2021-01-25] MEDS: buPROPion XL 150 MG TAB.ER.24H. PO SCH (09:32)
[2021-01-25] MEDS: MAGNESIUM OXIDE 400 MG TABLET PO SCH ×2 (09:32→21:05)
[2021-01-25] MEDS: DULoxetine HCL 30 MG CAPSULE.DR PO SCH (09:32)
[2021-01-25] MEDS: ISOSORBIDE MONONITRATE ER 30 MG TAB.ER.24H PO SCH (09:33)
[2021-01-25] MEDS: predniSONE 20 MG TABLET PO SCH (09:33)
[2021-01-25] MEDS: SENNOSIDES/DOCUSATE 8.6/50MG TABLET. PO SCH ×2 (09:33→21:05)
[2021-01-25] MEDS: GABAPENTIN 300 MG CAPSULE. PO SCH ×3 (09:33→21:03)
[2021-01-25] MEDS: ASPIRIN ENTERIC COATED 81 MG TABLET.DR. PO SCH (09:33)
[2021-01-25] MEDS: busPIRone 5 MG TABLET. PO SCH ×3 (09:34→21:05)
[2021-01-25] MEDS: METOPROLOL TART IMMED RELEASE 25 MG TABLET. PO SCH ×2 (09:34→21:06)
[2021-01-25] MEDS: QUEtiapine 100 MG TABLET. PO SCH ×3 (09:34→21:05)
[2021-01-25] MEDS: PANTOPRAZOLE 40 MG TABLET.DR. PO SCH (09:34)
[2021-01-25] MEDS: DICLOFENAC SODIUM 1% TOPICAL GEL 100GM TUBE. TP SCH ×2 (09:35→21:00)
[2021-01-25] MEDS: FLUTICASONE 50MCG/NASAL SPRAY 16GM BOTTLE. NS SCH (09:40)
[2021-01-25] MEDS: INSULIN GLARGINE SYRINGE. SQ SCH ×2 (09:44→21:04)
--- NOTE | 2021-01-25 10:10 | PDOC ---
IM PROGRESS NOTES- Subjective Subjective Has increased dyspnea and congestion. Objective Vitals/I&O Vital Signs Date Time Temp Pulse Resp B/P (MAP) Pulse Ox O2 Delivery O2 Flow Rate FiO2 01/25/21 09:34 82 146/81 01/25/21 07:54 100 Tracheal Collar 8.0 01/25/21 07:00 97.8 28 97.8 I & O 01/24/21 01/24/21 01/25/21 15:00 23:00 07:00 Intake Total 400 ml 240 ml Output Total 800 ml 600 ml Balance -400 ml -360 ml Physical Exam Physical Exam General Appearance - alert and in no distress Chest - decreased breath sounds at bases he has tracheostomy tube with PMV and trach shield Heart - S1 and S2 normal Abdomen - soft, non tender Neurological - alert and oriented Musculoskeletal - generalized weakness Extremities - no edema Labs Laboratory Tests Test 01/24/21 11:45 01/24/21 12:06 01/24/21 16:32 01/24/21 21:15 Immunoglobulin G 2702 mg/dL (603-1613) H Immunoglobulin A 456 mg/dL (90-386) H Immunoglobulin M 49 mg/dL (20-172) Glucose (Fingerstick) 241 mg/dL (70-99) H 294 mg/dL (70-99) H 290 mg/dL (70-99) H Test 01/25/21 07:36 Glucose (Fingerstick) 172 mg/dL (70-99) H Assessment Assessment 1. Fever, etiology not clear. 2. Recent COVID-19 pneumonia. 3. Acute on chronic hypoxic respiratory failure, now on PMV with trach shield, weaned off ventilation. 4. Diabetes mellitus type 2 with neuropathy. 5. Trauma to left foot with partial avulsion of the left second toenail. 6. Congestive heart failure, both diastolic and systolic, currently chronic with ejection fraction of 20-30% and diastolic dysfunction. 7. Hypertension. 8. Anemia. 9. Recent acute kidney injury with chronic kidney disease. 10. Coronary artery disease. 11. Reflux esophagitis. 12. History of drug abuse and alcohol abuse in the past. 13. Bilateral knee osteoarthritis 14. Hyperlipidemia. 15. Severe noncompliance. 16. Super morbid obesity. 17. Anemia. 18. Recent acute metabolic encephalopathy. PLAN: Consult Dr. Harvey for pulmonary evaluation and management. Consult Dr. Duane Torres for Infectious Disease evaluation and because of the fever. The patient currently not on antibiotics. Discussed with social media editor consider placing him in a correction unit when possible. I will order urinalysis, urine culture and blood cultures. Monitor fever. For details, please refer to the orders. Fever resolved. consult Dr. Mohamud- toe injury. He debrided his nails. Avulsion injury of the toenail improving. Physical deconditioning with neuropathy-continue PT OT. Dose of gabapentin increased. Discussed with Dr. Willis. Patient has bilateral foot drop and needs ankle braces. Diabetic neuropathy-he will need diabetic shoes. Blood sugar elevated due to steroids.Increase insulin. Renal function and hyperkalemia are improving. Elevated LFTs getting worse. Consult Dr. Jalloh for GI evaluation and management. He recently had liver imaging. LFTs elevated due to medication effect, fatty liver and CHF. Discussed with Dr. Willis. Transfer to SNF when accepted. Acute exacerbation of COPD. Improving. Prednisone 20 mg daily for 7 days. Patient is a tracheostomy tube with PMV. Patient is advised to follow-up with Dr. Harvey as outpatient [facility]. I have recommended to him that he may benefit from leaving the tracheostomy tube in, permanently because he also has obstructive sleep apnea. He should discuss this with her area loss prevention manager as outpatient. Please refer to the discharge summary for more details. Discharge management 35 minutes. Plan Plan For more details regarding further plans, please refer to the orders. Justifications for Admission Other Justification PADDY LINCOLN MD Jan 25, 2021 10:10
--- NOTE | 2021-01-25 13:07 | NUR ---
JOSE DANIEL following. Discussed with RN, [facility] can accept pt if pt and family agreeable to assisting with completing a medicaid application. JOSE DANIEL met with pt, pt agreeable to family assisting, and requested SW call his daughter, Yvette (ph: [phone]). Yvette's voicemail was not set up, so JOSE DANIEL sent a text message, requesting return call. JOSE DANIEL left message for Melinda at [facility] to provide update - awaiting return call. JOSE DANIEL will continue to follow. Addendum: 01/25/21 at 1408 by LA NENA SKY [facility] have accepted patient and submitted for insurance auth. Dr. Jean and RN notified.
--- NOTE | 2021-01-25 14:24 | PDOC ---
G I PROGRESS NOTE Subjective No real GI complaints. Breathless. Physical Exam Lungs with coarse sounds. RRR Abdomen soft, obese, not tender. Review of Relevant I have reviewed the following items mukund (where applicable) has been applied. Labs Laboratory Tests Test 01/23/21 17:11 01/23/21 20:57 01/24/21 08:32 01/24/21 11:45 Glucose (Fingerstick) 259 mg/dL (70-99) 306 mg/dL (70-99) 237 mg/dL (70-99) Immunoglobulin G 2702 mg/dL (603-1613) Immunoglobulin A 456 mg/dL (90-386) Immunoglobulin M 49 mg/dL (20-172) Test 01/24/21 12:06 01/24/21 16:32 01/24/21 21:15 01/25/21 07:36 Glucose (Fingerstick) 241 mg/dL (70-99) 294 mg/dL (70-99) 290 mg/dL (70-99) 172 mg/dL (70-99) Test 01/25/21 10:59 Glucose (Fingerstick) 222 mg/dL (70-99) Laboratory Tests Test 01/24/21 16:32 01/24/21 21:15 01/25/21 07:36 01/25/21 10:59 Glucose (Fingerstick) 294 mg/dL (70-99) 290 mg/dL (70-99) 172 mg/dL (70-99) 222 mg/dL (70-99) Microbiology 01/08/21 Urine Culture - Final, Complete 01/08/21 Blood Culture - Final, Complete NO GROWTH AFTER 5 DAYS Ig's c/w polyclonal gammopathy. SPEP pending. Vitals/I & O Vital Sign - Last 24 Hours 01/24/21 01/24/21 01/24/21 01/24/21 15:00 15:44 20:15 20:15 Temp 97.8 97.9 97.8 97.9 Pulse 84 86 Resp 21 18 B/P (MAP) 135/81 (99) 162/86 (111) Pulse Ox 98 98 98 O2 Delivery Tracheal Collar Tracheal Collar Tracheal Collar Trach Collar O2 Flow Rate 8.0 8.0 8.0 8.0 01/24/21 01/24/21 01/24/21 01/24/21 20:41 21:49 21:50 22:19 Pulse 84 B/P (MAP) 135/81 Pulse Ox 98 98 96 O2 Delivery Tracheal Collar O2 Flow Rate 8.0 8.0 8.0 01/25/21 01/25/21 01/25/21 01/25/21 00:00 03:30 07:00 07:54 Temp 98.1 97.6 97.8 98.1 97.6 97.8 Pulse 82 80 82 Resp 18 17 28 B/P (MAP) 156/87 (110) 114/77 (89) 146/81 (102) Pulse Ox 96 98 100 100 O2 Delivery Tracheal Collar Tracheal Collar Tracheal Collar Tracheal Collar O2 Flow Rate 8.0 8.0 8.0 8.0 01/25/21 01/25/21 01/25/21 09:33 09:34 11:55 Pulse 82 82 B/P (MAP) 146/81 146/81 Pulse Ox 97 O2 Delivery Tracheal Collar O2 Flow Rate 8.0 Intake and Output 01/24/21 01/24/21 01/25/21 15:00 23:00 07:00 Intake Total 400 ml 240 ml Output Total 800 ml 600 ml Balance -400 ml -360 ml Problem List Problems Medical Problems: (1) COPD (chronic obstructive pulmonary disease) Status: Acute (2) Tracheostomy in place Status: Acute (3) Weakness Status: Acute Assessment Abnormal LFT's, likely multifactorial. Plan of Care Note Continue as now. Await SPEP. Justicifation of Admission Dx: Justifications for Admission: Justification of Admission Dx: Comment: (Acute on chronic hypoxic respiratory failure) SKIP EDWARDS MD Jan 25, 2021 14:24
[2021-01-25] MEDS: clonazePAM 0.5 MG TABLET PO PRN (21:05)
[2021-01-25] MEDS: MONTELUKAST SODIUM 10 MG TABLET. PO SCH (21:05)
[2021-01-25] MEDS: oxyCODONE IR 5 MG TABLET PO PRN (21:06)
[2021-01-26 03:00] VITALS: BP 173/98
[2021-01-26] MEDS: HEPARIN for SUB-Q USE 5,000 UNIT/ML VIAL. SQ SCH ×3 (05:53→21:43)
[2021-01-26 07:00] VITALS: BP 154/70
[2021-01-26] MEDS: IPRATRPIUM/ALBUTEROL 0.5/2.5MG 3 ML NEBU. NEB SCH ×4 (07:41→20:24)
[2021-01-26] MEDS: DICLOFENAC SODIUM 1% TOPICAL GEL 100GM TUBE. TP SCH ×2 (08:28→21:00)
[2021-01-26] MEDS: MAGNESIUM OXIDE 400 MG TABLET PO SCH ×2 (08:28→21:41)
[2021-01-26] MEDS: DULoxetine HCL 30 MG CAPSULE.DR PO SCH (08:29)
[2021-01-26] MEDS: PANTOPRAZOLE 40 MG TABLET.DR. PO SCH (08:29)
[2021-01-26] MEDS: buPROPion XL 150 MG TAB.ER.24H. PO SCH (08:29)
[2021-01-26] MEDS: predniSONE 20 MG TABLET PO SCH (08:29)
[2021-01-26] MEDS: SENNOSIDES/DOCUSATE 8.6/50MG TABLET. PO SCH ×2 (08:29→21:41)
[2021-01-26] MEDS: ASPIRIN ENTERIC COATED 81 MG TABLET.DR. PO SCH (08:29)
[2021-01-26] MEDS: METOPROLOL TART IMMED RELEASE 25 MG TABLET. PO SCH ×2 (08:30→21:42)
[2021-01-26] MEDS: busPIRone 5 MG TABLET. PO SCH ×3 (08:31→21:42)
[2021-01-26] MEDS: ISOSORBIDE MONONITRATE ER 30 MG TAB.ER.24H PO SCH (08:31)
[2021-01-26] MEDS: QUEtiapine 100 MG TABLET. PO SCH ×3 (08:31→22:17)
[2021-01-26] MEDS: FLUTICASONE 50MCG/NASAL SPRAY 16GM BOTTLE. NS SCH (08:34)
--- NOTE | 2021-01-26 09:24 | PDOC ---
PROGRESS NOTES Date of Service DATE: 01/26/21 TIME: 09:21 Subjective Subjective No new problems. Objective Objective Vital Signs Date Time Temp Pulse Resp B/P (MAP) Pulse Ox O2 Delivery O2 Flow Rate FiO2 01/26/21 08:31 81 154/70 01/26/21 07:43 100 Tracheal Collar 8.0 01/26/21 07:00 97.9 18 97.9 Intake and Output 01/26/21 07:00 Intake Total 1380 ml Output Total 2000 ml Balance -620 ml Intake Oral 1380 ml Output Urine Total 2000 ml # Voids 1 # Bowel Movements 1 Physical Exam Physical Exam He is alert,supine in bed with trach shield on and no change with his bilateral foot drop. He is getting up to chair with therapy but no progress with his mobility with his bilateral foot drop. Assessment Assessment Problems Medical Problems: (1) COPD (chronic obstructive pulmonary disease) Status: Acute (2) Tracheostomy in place Status: Acute (3) Weakness Status: Acute Plan Plan of Care waiting for bilateral AFOs. Comment Review of Relevant I have reviewed the following items mukund (where applicable) has been applied. Labs Laboratory Tests Test 01/24/21 11:45 01/24/21 12:06 01/24/21 16:32 01/24/21 21:15 Immunoglobulin G 2702 mg/dL (603-1613) Immunoglobulin A 456 mg/dL (90-386) Immunoglobulin M 49 mg/dL (20-172) Glucose (Fingerstick) 241 mg/dL (70-99) 294 mg/dL (70-99) 290 mg/dL (70-99) Test 01/25/21 07:36 01/25/21 10:59 01/25/21 17:10 01/25/21 20:58 Glucose (Fingerstick) 172 mg/dL (70-99) 222 mg/dL (70-99) 291 mg/dL (70-99) 331 mg/dL (70-99) Test 01/26/21 07:45 Glucose (Fingerstick) 195 mg/dL (70-99) Laboratory Tests Test 01/25/21 10:59 01/25/21 17:10 01/25/21 20:58 01/26/21 07:45 Glucose (Fingerstick) 222 mg/dL (70-99) 291 mg/dL (70-99) 331 mg/dL (70-99) 195 mg/dL (70-99) Microbiology 01/08/21 Urine Culture - Final, Complete 01/08/21 Blood Culture - Final, Complete NO GROWTH AFTER 5 DAYS Medications Current Medications Ondansetron HCl (Zofran) 4 mg PRN Q8HRS PRN IVP NAUSEA/VOMITING Last administered on 01/08/21 12:22; Start 01/07/21 at 21:30; Stop 01/08/21 at 21:29; Status DC Pharmacy Consult (C.diff Med Screen By Rx) 1 each 1X ONCE [facility] ; Start 01/08/21 at 02:45; Stop 01/08/21 at 02:46; Status Cancel Influenza Virus Vaccine Quadrival (Flulaval Quad [id number] Syringe) 0.5 ml ONCE ONCE VAX IM Last administered on 01/08/21at 13:46; Start 01/08/21 at 09:00; St op 01/08/21 at 09:03; Status DC Aspirin (Ecotrin) 81 mg DAILYWBKFT PO Last administered on 01/26/21at 08:29; Start 01/09/21 at 08:00 Buspirone HCl (Buspar) 5 mg TID PO Last administered on 01/26/21at 08:31; Start 01/08/21 at 09:00 Gabapentin (Neurontin) 300 mg QID PO Last administered on 01/18/21at 09:18; Start 01/08/21 at 09:00; Stop 01/18/21 at 10:00; Status DC Albuterol/ Ipratropium (Duoneb) 3 ml RTQID NEB Last administered on 01/26/21at 07:41; Start 01/08/21 at 12:00 Isosorbide Mononitrate (Imdur) 30 mg DAILY PO Last administered on 01/26/21at 08:31; Start 01/08/21 at 09:00 Magnesium Oxide (Magnesium Oxide) 800 mg BID PO Last administered on 01/26/21at 08:28; Start 01/08/21 at 09:00 Metoprolol Tartrate (Lopressor) 25 mg BID PO Last administered on 01/26/21at 08:30; Start 01/08/21 at 09:00 Montelukast Sodium (Singulair) 10 mg HS PO Last administered on 01/25/21 21:05; Start 01/08/21 at 21:00 Pantoprazole Sodium (Protonix) 40 mg DAILYAC PO Last administered on 01/26/21 08:29; Start 01/08/21 at 09:00 Quetiapine Fumarate (SEROquel) 100 mg TID PO Last administered on 01/26/21 08:31; Start 01/08/21 at 09:00 Senna/Docusate Sodium (Senna Plus) 2 tab BID PO Last administered on 01/26/21 08:29; Start 01/08/21 at 09:00 Bupropion HCl (Wellbutrin Xl) 300 mg DAILY PO Last administered on 01/26/21 08:29; Start 01/08/21 at 09:00 Clonazepam (KlonoPIN) 0.5 mg PRN Q12HRS PRN PO ANXIETY / AGITATION Last administered on 01/25/21at 21:05; Start 01/08/21 at 09:15 Duloxetine HCl (Cymbalta) 60 mg DAILY PO Last administered on 01/26/21 08:29; Start 01/08/21 at 09:00 Fluticasone Propionate (Flonase) 2 spray DAILY NS Last administered on 01/26/21 08:34; Start 01/08/21 at 09:00 Non-Formulary Medication (Glucagon,Human Recombinant (Glucagon Emergency Kit)) 1 mg low blood sugar IM ; Start 01/08/21 at 09:00; Status UNV Heparin Sodium (Porcine) (Heparin Sodium) 5,000 unit Q8HRS SQ Last administered on 01/26/21at 05:53; Start 01/08/21 at 14:00 Insulin Glargine (Lantus Syringe) 34 unit BID SQ Last administered on 01/23/21 21:33; Start 01/08/21 at 09:00; Stop 01/24/21 at 08:52; Status DC Non-Formulary Medication (Melatonin ) 2 tab QHS PO ; Start 01/08/21 at 21:00; Status UNV Oxycodone HCl (Roxicodone) 15 mg PRN Q6HRS PRN PO MODERATE-SEVERE PAIN Last administered on 01/25/21at 21:06; Start 01/08/21 at 09:15 Acetaminophen (Tylenol) 650 mg PRN Q6HRS PRN PO MILD PAIN / TEMP > 100.3'F; Start 01/08/21 at 09:00 Gabapentin (Neurontin) 600 mg TID PO Last administered on 01/25/21at 21:03; Start 01/18/21 at 14:00 Diclofenac Sodium (Voltaren) 1 chung BID TP Last administered on 01/26/21at 08:28; Start 01/19/21 at 11:00 Methylprednisolone Sodium Succinate (SOLU-Medrol 40MG VIAL) 60 mg 1X ONCE IV ; Start 01/23/21 at 09:45; Stop 01/23/21 at 10:57; Status DC Prednisone (Prednisone) 60 mg 1X ONCE PO Last administered on 01/23/21at 11:05; Start 01/23/21 at 11:00; Stop 01/23/21 at 11:01; Status DC Insulin Glargine (Lantus Syringe) 36 unit BID SQ Last administered on 01/25/21at 21:04; Start 01/24/21 at 09:30 Prednisone (Prednisone) 20 mg DAILY PO Last administered on 01/26/21at 08:29; Start 01/24/21 at 09:00 Active Scripts Active Prednisone 20 Mg Tablet 1 Tab PO DAILY Lantus Solostar (Insulin Glargine,Hum.rec.anlog) 100 Unit/1 Ml Insuln.pen 36 Unit SQ BID Hold if blood sugar less than 100. Gabapentin (Gabapentin) 300 Mg Capsule 600 Mg PO TID 30 Days Acetaminophen 325 Mg Tablet 650 Mg PO PRN Q6HRS PRN Wellbutrin Xl (Bupropion Hcl) 300 Mg Tab.er.24h 1 Tab PO DAILY Duoneb 0.5-3(2.5) Mg/3 Ml (Albuterol/Ipratropium) 3 Ml Ampul.neb 3 Ml NEB RTQID 30 Days Aspirin Ec (Aspirin) 81 Mg Tablet. 81 Mg PO DAILYWBKFT Reported Glucagon Emergency Kit (Glucagon,Human Recombinant) 1 Mg Kit 1 Mg IM LOW BLOOD SUGAR Cymbalta (Duloxetine Hcl) 60 Mg Capsule. 1 Cap PO DAILY Heparin 2,000 Unit/2 Ml Vial (Heparin Sodium,Porcine/Pf) 1,000 Unit/1 Ml Vial 5,000 Unit IJ Q8HRS Isosorbide Mononitrate Er (Isosorbide Mononitrate) 30 Mg Tab.er.24h 1 Tab PO DAILY Clonazepam 1 Mg Tablet 0.5 Mg PO PRN BID PRN Magnesium Oxide 400 Mg Tablet 2 Tab PO BID Melatonin 3 Mg Tab.rapdis 2 Tab PO QHS 30 Days Oxycodone Hcl Immed.release (Oxycodone Hcl) 15 Mg Tablet 15 Mg PO PRN Q6HRS PRN Flonase Allergy Relief (Fluticasone Propionate) 9.9 Ml [place].susp 2 Sprays NS DAILY Seroquel (Quetiapine Fumarate) 100 Mg Tablet 100 Mg PO TID Protonix (Pantoprazole Sodium) 40 Mg Tablet.dr 40 Mg PO DAILYAC Buspirone Hcl 5 Mg Tablet 1 Tab PO TID Senokot-S Tablet (Sennosides/Docusate Sodium) 1 Each Tablet 2 Tab PO BID 30 Days Metoprolol Tartrate 25 Mg Tablet 1 Tab PO BID Singulair Tablet (Montelukast Sodium) 10 Mg Tablet 10 Mg PO HS Vitals/I & O Vital Sign - Last 24 Hours 01/25/21 01/25/21 01/25/21 01/25/21 09:33 09:34 11:00 11:55 Temp 98.1 98.1 Pulse 82 82 89 Resp 20 B/P (MAP) 146/81 146/81 115/56 (75) Pulse Ox 95 97 O2 Delivery Room Air Tracheal Collar O2 Flow Rate 8.0 01/25/21 01/25/21 01/25/21 01/25/21 15:00 16:38 19:00 20:09 Temp 98.1 97.9 98.1 97.9 Pulse 80 85 Resp 18 20 B/P (MAP) 135/79 (97) 171/92 (118) Pulse Ox 99 98 97 O2 Delivery Tracheal Collar Tracheal Collar Tracheal Collar Tracheal Collar O2 Flow Rate 8.0 8.0 8.0 8.0 01/25/21 01/25/21 01/25/21 01/25/21 20:15 21:06 21:06 21:36 Pulse 85 B/P (MAP) 171/92 Pulse Ox 97 99 O2 Delivery Trach Collar O2 Flow Rate 8.0 8.0 8.0 01/25/21 01/26/21 01/26/21 01/26/21 23:00 03:00 07:00 07:43 Temp 98.1 98.4 97.9 98.1 98.4 97.9 Pulse 93 88 81 Resp 20 20 18 B/P (MAP) 168/90 (116) 173/98 (123) 154/70 (98) Pulse Ox 99 99 98 100 O2 Delivery Tracheal Collar Tracheal Collar Tracheal Collar Tracheal Collar O2 Flow Rate 8.0 8.0 8.0 8.0 01/26/21 01/26/21 08:30 08:31 Pulse 81 81 B/P (MAP) 154/70 154/70 Intake and Output 0 01/25/21 01/25/21 01/26/21 15:00 23:00 07:00 Intake Total 400 ml 400 ml 580 ml Output Total 1000 ml 1000 ml Balance -600 ml -600 ml 580 ml Justifications for Admission Other Justification ALVARO RHOADES MD Jan 26, 2021 09:23
--- NOTE | 2021-01-26 09:37 | PDOC ---
IM PROGRESS NOTES- Subjective Subjective Has increased dyspnea and congestion. Objective Vitals/I&O Vital Signs Date Time Temp Pulse Resp B/P (MAP) Pulse Ox O2 Delivery O2 Flow Rate FiO2 01/26/21 08:31 81 154/70 01/26/21 07:43 100 Tracheal Collar 8.0 01/26/21 07:00 97.9 18 97.9 I & O 01/25/21 01/25/21 01/26/21 15:00 23:00 07:00 Intake Total 400 ml 400 ml 580 ml Output Total 1000 ml 1000 ml Balance -600 ml -600 ml 580 ml Physical Exam Physical Exam General Appearance - alert and in no distress Chest - decreased breath sounds at bases he has a tracheostomy tube with PMV on trach shield. Heart - S1 and S2 normal Abdomen - soft, non tender Neurological - alert and oriented Musculoskeletal - generalized weakness Extremities - no edema Labs Laboratory Tests Test 01/25/21 10:59 01/25/21 17:10 01/25/21 20:58 01/26/21 07:45 Glucose (Fingerstick) 222 mg/dL (70-99) H 291 mg/dL (70-99) H 331 mg/dL (70-99) H 195 mg/dL (70-99) H Assessment Assessment 1. Fever, etiology not clear. 2. Recent COVID-19 pneumonia. 3. Acute on chronic hypoxic respiratory failure, now on PMV with trach shield, weaned off ventilation. 4. Diabetes mellitus type 2 with neuropathy. 5. Trauma to left foot with partial avulsion of the left second toenail. 6. Congestive heart failure, both diastolic and systolic, currently chronic with ejection fraction of 20-30% and diastolic dysfunction. 7. Hypertension. 8. Anemia. 9. Recent acute kidney injury with chronic kidney disease. 10. Coronary artery disease. 11. Reflux esophagitis. 12. History of drug abuse and alcohol abuse in the past. 13. Bilateral knee osteoarthritis 14. Hyperlipidemia. 15. Severe noncompliance. 16. Super morbid obesity. 17. Anemia. 18. Recent acute metabolic encephalopathy. PLAN: Consult Dr. Harvey for pulmonary evaluation and management. Consult Dr. Duane Torres for Infectious Disease evaluation and because of the fever. The patient currently not on antibiotics. Discussed with health and social care teacher consider placing him in a detention unit when possible. I will order urinalysis, urine culture and blood cultures. Monitor fever. For details, please refer to the orders. Fever resolved. consult Dr. Mohamud- toe injury. He debrided his nails. Avulsion injury of the toenail improving. Physical deconditioning with neuropathy-continue PT OT. Dose of gabapentin increased. Discussed with Dr. Willis. Patient has bilateral foot drop and needs ankle braces. Diabetic neuropathy-he will need diabetic shoes. Blood sugar elevated due to steroids.Increase insulin. Renal function and hyperkalemia are improving. Elevated LFTs getting worse. Consult Dr. Jalloh for GI evaluation and management. He recently had liver imaging. LFTs elevated due to medication effect, fatty liver and CHF. Discussed with Dr. Willis. Transfer to SNF when accepted. Acute exacerbation of COPD. Improving. Prednisone 20 mg daily for 7 days. Patient is a tracheostomy tube with PMV. Patient is advised to follow-up with Dr. Harvey as outpatient [facility]. I have recommended to him that he may benefit from leaving the tracheostomy tube in, permanently because he also has obstructive sleep apnea. He should discuss this with her manager ob as outpatient. Please refer to the discharge summary for more details. Discharge management 35 minutes. Plan Plan For more details regarding further plans, please refer to the orders. Justifications for Admission Other Justification PADDY LINCOLN MD Jan 26, 2021 09:37
[2021-01-26 11:00] VITALS: BP 132/72
[2021-01-26] MEDS: GABAPENTIN 300 MG CAPSULE. PO SCH ×3 (11:21→21:42)
--- NOTE | 2021-01-26 11:23 | NUR ---
SW following. Discussed with RN, JOSE DANIEL spoke with [facility] requesting new therapy notes. JOSE DANIEL faxed updated therapy notes to [place]. Awaiting insurance auth. Pt ready for discharge once insurance approves. RN notified. JOSE DANIEL will continue to follow.
[2021-01-26] MEDS ORDERED: INSU100I13 SQ (11:47)
[2021-01-26] MEDS: INSULIN GLARGINE SYRINGE. SQ SCH ×2 (13:33→21:43)
--- NOTE | 2021-01-26 13:57 | PDOC ---
G I PROGRESS NOTE Subjective No GI complaints. Says eating and stooling w/o issues. Physical Exam Lungs with few coarse sounds anteriorly. RRR Abdomen obese, soft, not tender. Review of Relevant I have reviewed the following items mukund (where applicable) has been applied. Labs Laboratory Tests Test 01/24/21 16:32 01/24/21 21:15 01/25/21 07:36 01/25/21 10:59 Glucose (Fingerstick) 294 mg/dL (70-99) 290 mg/dL (70-99) 172 mg/dL (70-99) 222 mg/dL (70-99) Test 01/25/21 17:10 01/25/21 20:58 01/26/21 07:45 01/26/21 11:51 Glucose (Fingerstick) 291 mg/dL (70-99) 331 mg/dL (70-99) 195 mg/dL (70-99) 222 mg/dL (70-99) Laboratory Tests Test 01/25/21 17:10 01/25/21 20:58 01/26/21 07:45 01/26/21 11:51 Glucose (Fingerstick) 291 mg/dL (70-99) 331 mg/dL (70-99) 195 mg/dL (70-99) 222 mg/dL (70-99) Microbiology 01/08/21 Urine Culture - Final, Complete 01/08/21 Blood Culture - Final, Complete NO GROWTH AFTER 5 DAYS Vitals/I & O Vital Sign - Last 24 Hours 01/25/21 01/25/21 01/25/21 01/25/21 15:00 16:38 19:00 20:09 Temp 98.1 97.9 98.1 97.9 Pulse 80 85 Resp 18 20 B/P (MAP) 135/79 (97) 171/92 (118) Pulse Ox 99 98 97 O2 Delivery Tracheal Collar Tracheal Collar Tracheal Collar Tracheal Collar O2 Flow Rate 8.0 8.0 8.0 8.0 01/25/21 01/25/21 01/25/21 01/25/21 20:15 21:06 21:06 21:36 Pulse 85 B/P (MAP) 171/92 Pulse Ox 97 99 O2 Delivery Trach Collar O2 Flow Rate 8.0 8.0 8.0 01/25/21 01/26/21 01/26/21 01/26/21 23:00 03:00 07:00 07:43 Temp 98.1 98.4 97.9 98.1 98.4 97.9 Pulse 93 88 81 Resp 20 20 18 B/P (MAP) 168/90 (116) 173/98 (123) 154/70 (98) Pulse Ox 99 99 98 100 O2 Delivery Tracheal Collar Tracheal Collar Tracheal Collar Tracheal Collar O2 Flow Rate 8.0 8.0 8.0 8.0 01/26/21 01/26/21 01/26/21 01/26/21 08:00 08:30 08:31 11:00 Temp 97.8 97.8 Pulse 81 81 83 Resp 19 B/P (MAP) 154/70 154/70 132/72 (92) Pulse Ox 98 O2 Delivery Trach Collar Tracheal Collar O2 Flow Rate 8.0 8.0 01/26/21 11:35 Pulse Ox 100 O2 Delivery Tracheal Collar O2 Flow Rate 8.0 Intake and Output 01/25/21 01/25/21 01/26/21 15:00 23:00 07:00 Intake Total 400 ml 400 ml 580 ml Output Total 1000 ml 1000 ml Balance -600 ml -600 ml 580 ml Problem List Problems Medical Problems: (1) COPD (chronic obstructive pulmonary disease) Status: Acute (2) Tracheostomy in place Status: Acute (3) Weakness Status: Acute Assessment Elevated LFT's. Cause uncertain and likely multifactorial. SPEP pending. Plan of Care Note Continue as now. Await SPEP. Of the weekend. Coverage available if needed. Justicifation of Admission Dx: Justifications for Admission: Justification of Admission Dx: Comment: (Acute on chronic hypoxic respiratory failure) SKIP EDWARDS MD Jan 26, 2021 13:57
[2021-01-26 15:00] VITALS: BP 149/79
[2021-01-26 15:19] LABS: ALBUM 3.1 g/dL (2.9-4.4); ALPHA 1 0.2 g/dL (0.0-0.4); ALPHA 2 1.1 g/dL (0.4-1.0); BETA 1.3 g/dL (0.7-1.3); GAMMA 2.5 g/dL (0.4-1.8); PROTEIN TOTAL 8.3 g/dL (6.0-8.5); SPEP AG RATIO 0.6 (0.7-1.7)
[2021-01-26] MEDS ORDERED: INSULIN LISPRO 300 UNITS/3 ML VIAL. SQ ONE (18:00)
[2021-01-26 19:00] VITALS: BP 140/78
[2021-01-26] MEDS: oxyCODONE IR 5 MG TABLET PO PRN (21:41)
[2021-01-26] MEDS: MONTELUKAST SODIUM 10 MG TABLET. PO SCH (21:42)
[2021-01-26] MEDS: clonazePAM 0.5 MG TABLET PO PRN (21:42)
[2021-01-26 23:52] VITALS: BP 162/83
[2021-01-27 03:00] VITALS: BP 165/91
[2021-01-27] MEDS: HEPARIN for SUB-Q USE 5,000 UNIT/ML VIAL. SQ SCH ×3 (05:37→22:24)
[2021-01-27 07:00] VITALS: BP 152/97
[2021-01-27] MEDS: IPRATRPIUM/ALBUTEROL 0.5/2.5MG 3 ML NEBU. NEB SCH ×4 (08:03→19:50)
[2021-01-27] MEDS: PANTOPRAZOLE 40 MG TABLET.DR. PO SCH (09:06)
[2021-01-27] MEDS: ASPIRIN ENTERIC COATED 81 MG TABLET.DR. PO SCH (09:06)
[2021-01-27] MEDS: DULoxetine HCL 30 MG CAPSULE.DR PO SCH (09:07)
[2021-01-27] MEDS: SENNOSIDES/DOCUSATE 8.6/50MG TABLET. PO SCH ×2 (09:07→21:28)
[2021-01-27] MEDS: busPIRone 5 MG TABLET. PO SCH ×3 (09:07→21:33)
[2021-01-27] MEDS: FLUTICASONE 50MCG/NASAL SPRAY 16GM BOTTLE. NS SCH (09:07)
[2021-01-27] MEDS: predniSONE 20 MG TABLET PO SCH (09:07)
[2021-01-27] MEDS: buPROPion XL 150 MG TAB.ER.24H. PO SCH (09:07)
[2021-01-27] MEDS: MAGNESIUM OXIDE 400 MG TABLET PO SCH ×2 (09:07→21:30)
[2021-01-27] MEDS: QUEtiapine 100 MG TABLET. PO SCH ×3 (09:07→21:29)
[2021-01-27] MEDS: ISOSORBIDE MONONITRATE ER 30 MG TAB.ER.24H PO SCH (09:08)
[2021-01-27] MEDS: GABAPENTIN 300 MG CAPSULE. PO SCH ×3 (09:08→21:29)
[2021-01-27] MEDS: METOPROLOL TART IMMED RELEASE 25 MG TABLET. PO SCH ×2 (09:08→21:30)
[2021-01-27] MEDS: INSULIN GLARGINE SYRINGE. SQ SCH ×2 (09:13→22:25)
--- NOTE | 2021-01-27 09:41 | PDOC ---
PROGRESS NOTES Date of Service DATE: 01/27/21 TIME: 09:38 Subjective Subjective No new complaints. Objective Objective Vital Signs Date Time Temp Pulse Resp B/P (MAP) Pulse Ox O2 Delivery O2 Flow Rate FiO2 01/27/21 09:08 78 165/91 01/27/21 08:04 98 Tracheal Collar 8.0 01/27/21 03:00 98.2 18 98.2 Intake and Output 01/27/21 07:00 Intake Total 1280 ml Output Total 2700 ml Balance -1420 ml Intake Oral 1280 ml Output Urine Total 2700 ml # Bowel Movements 4 Physical Exam Physical Exam He is alert,sitting at edge of bed and is comfortable and he had trach shield in place and he continues with bilateral foot drop. I was told by nursing he is not going to get his ankle braces and shoes until he goes out patient. How he is going to go home with bilateral foot drop and trach shield on. Assessment Assessment Problems Medical Problems: (1) COPD (chronic obstructive pulmonary disease) Status: Acute (2) Tracheostomy in place Status: Acute (3) Weakness Status: Acute Plan Plan of Care Agree with plans for SNF transfer when arrangements are completed. Comment Review of Relevant I have reviewed the following items mukund (where applicable) has been applied. Labs Laboratory Tests Test 01/25/21 10:59 01/25/21 17:10 01/25/21 20:58 01/26/21 07:45 Glucose (Fingerstick) 222 mg/dL (70-99) 291 mg/dL (70-99) 331 mg/dL (70-99) 195 mg/dL (70-99) Test 01/26/21 11:51 01/26/21 16:48 01/26/21 20:30 01/27/21 08:00 Glucose (Fingerstick) 222 mg/dL (70-99) 357 mg/dL (70-99) 315 mg/dL (70-99) 157 mg/dL (70-99) Laboratory Tests Test 01/26/21 11:51 01/26/21 16:48 01/26/21 20:30 01/27/21 08:00 Glucose (Fingerstick) 222 mg/dL (70-99) 357 mg/dL (70-99) 315 mg/dL (70-99) 157 mg/dL (70-99) Microbiology 01/08/21 Urine Culture - Final, Complete 01/08/21 Blood Culture - Final, Complete NO GROWTH AFTER 5 DAYS Medications Current Medications Ondansetron HCl (Zofran) 4 mg PRN Q8HRS PRN IVP NAUSEA/VOMITING Last administered on 01/08/21 12:22; Start 01/07/21 at 21:30; Stop 01/08/21 at 21:29; Status DC Pharmacy Consult (C.diff Med Screen By Rx) 1 each 1X ONCE [facility] ; Start 01/08/21 at 02:45; Stop 01/08/21 at 02:46; Status Cancel Influenza Virus Vaccine Quadrival (Flulaval Quad [id number] Syringe) 0.5 ml ONCE ONCE VAX IM Last administered on 01/08/21at 13:46; Start 01/08/21 at 09:00; Stop 01/08/21 at 09:03; Status DC Aspirin (Ecotrin) 81 mg DAILYWBKFT PO Last administered on 01/27/21 09:06; Start 01/09/21 at 08:00 Buspirone HCl (Buspar) 5 mg TID PO Last administered on 01/27/21 09:07; Start 01/08/21 at 09:00 Gabapentin (Neurontin) 300 mg QID PO Last administered on 01/18/21at 09:18; Start 01/08/21 at 09:00; Stop 01/18/21 at 10:00; Status DC Albuterol/ Ipratropium (Duoneb) 3 ml RTQID NEB Last administered on 01/27/21at 08:03; Start 01/08/21 at 12:00 Isosorbide Mononitrate (Imdur) 30 mg DAILY PO Last administered on 01/27/21 09:08; Start 01/08/21 at 09:00 Magnesium Oxide (Magnesium Oxide) 800 mg BID PO Last administered on 01/27/21 09:07; Start 01/08/21 at 09:00 Metoprolol Tartrate (Lopressor) 25 mg BID PO Last administered on 01/27/21 09:08; Start 01/08/21 at 09:00 Montelukast Sodium (Singulair) 10 mg HS PO Last administered on 01/26/21at 21:42; Start 01/08/21 at 21:00 Pantoprazole Sodium (Protonix) 40 mg DAILYAC PO Last administered on 01/27/21 09:06; Start 01/08/21 at 09:00 Quetiapine Fumarate (SEROquel) 100 mg TID PO Last administered on 01/27/21 09:07; Start 01/08/21 at 09:00 Senna/Docusate Sodium (Senna Plus) 2 tab BID PO Last administered on 01/27/21 09:07; Start 01/08/21 at 09:00 Bupropion HCl (Wellbutrin Xl) 300 mg DAILY PO Last administered on 01/27/21 09:07; Start 01/08/21 at 09:00 Clonazepam (KlonoPIN) 0.5 mg PRN Q12HRS PRN PO ANXIETY / AGITATION Last administered on 01/26/21at 21:42; Start 01/08/21 at 09:15 Duloxetine HCl (Cymbalta) 60 mg DAILY PO Last administered on 01/27/21 09:07; Start 01/08/21 at 09:00 Fluticasone Propionate (Flonase) 2 spray DAILY NS Last administered on 01/27/21 09:07; Start 01/08/21 at 09:00 Non-Formulary Medication (Glucagon,Human Recombinant (Glucagon Emergency Kit)) 1 mg low blood sugar IM ; Start 01/08/21 at 09:00; Status UNV Heparin Sodium (Porcine) (Heparin Sodium) 5,000 unit Q8HRS SQ Last administered on 01/27/21at 05:37; Start 01/08/21 at 14:00 Insulin Glargine (Lantus Syringe) 34 unit BID SQ Last administered on 01/23/21at 21:33; Start 01/08/21 at 09:00; Stop 01/24/21 at 08:52; Status DC Non-Formulary Medication (Melatonin ) 2 tab QHS PO ; Start 01/08/21 at 21:00; Status UNV Oxycodone HCl (Roxicodone) 15 mg PRN Q6HRS PRN PO MODERATE-SEVERE PAIN Last administered on 01/26/21at 21:41; Start 01/08/21 at 09:15 Acetaminophen (Tylenol) 650 mg PRN Q6HRS PRN PO MILD PAIN / TEMP > 100.3'F; Start 01/08/21 at 09:00 Gabapentin (Neurontin) 600 mg TID PO Last administered on 01/27/21at 09:08; Start 01/18/21 at 14:00 Diclofenac Sodium (Voltaren) 1 chung BID TP Last administered on 01/26/21at 21:00; Start 01/19/21 at 11:00 Methylprednisolone Sodium Succinate (SOLU-Medrol 40MG VIAL) 60 mg 1X ONCE IV ; Start 01/23/21 at 09:45; Stop 01/23/21 at 10:57; Status DC Prednisone (Prednisone) 60 mg 1X ONCE PO Last administered on 01/23/21at 11:05; Start 01/23/21 at 11:00; Stop 01/23/21 at 11:01; Status DC Insulin Glargine (Lantus Syringe) 36 unit BID SQ Last administered on 01/25/21at 21:04; Start 01/24/21 at 09:30; Stop 01/26/21 at 09:35; Status DC Prednisone (Prednisone) 20 mg DAILY PO Last administered on 01/27/21at 09:07; Start 01/24/21 at 09:00 Insulin Glargine (Lantus Syringe) 40 unit BID SQ Last administered on 01/27/21at 09:13; Start 01/26/21 at 10:00 Insulin Human Lispro (HumaLOG) 15 units 1X ONCE SQ Last administered on 01/26/21at 17:59; Start 01/26/21 at 18:00; Stop 01/26/21 at 18:01; Status DC Active Scripts Active Lantus Solostar (Insulin Glargine,Hum.rec.anlog) 100 Unit/1 Ml Insuln.pen 40 Unit SQ BID Hold if blood sugar less than 100. Prednisone 20 Mg Tablet 1 Tab PO DAILY Gabapentin (Gabapentin) 300 Mg Capsule 600 Mg PO TID 30 Days Acetaminophen 325 Mg Tablet 650 Mg PO PRN Q6HRS PRN Wellbutrin Xl (Bupropion Hcl) 300 Mg Tab.er.24h 1 Tab PO DAILY Duoneb 0.5-3(2.5) Mg/3 Ml (Albuterol/Ipratropium) 3 Ml Ampul.neb 3 Ml NEB RTQID 30 Days Aspirin Ec (Aspirin) 81 Mg Tablet. 81 Mg PO DAILYWBKFT Reported Glucagon Emergency Kit (Glucagon,Human Recombinant) 1 Mg Kit 1 Mg IM LOW BLOOD SUGAR Cymbalta (Duloxetine Hcl) 60 Mg Capsule.dr 1 Cap PO DAILY Heparin 2,000 Unit/2 Ml Vial (Heparin Sodium,Porcine/Pf) 1,000 Unit/1 Ml Vial 5,000 Unit IJ Q8HRS Isosorbide Mononitrate Er (Isosorbide Mononitrate) 30 Mg Tab.er.24h 1 Tab PO DAILY Clonazepam 1 Mg Tablet 0.5 Mg PO PRN BID PRN Magnesium Oxide 400 Mg Tablet 2 Tab PO BID Melatonin 3 Mg Tab.rapdis 2 Tab PO QHS 30 Days Oxycodone Hcl Immed.release (Oxycodone Hcl) 15 Mg Tablet 15 Mg PO PRN Q6HRS PRN Flonase Allergy Relief (Fluticasone Propionate) 9.9 Ml [place].susp 2 Sprays NS DAILY Seroquel (Quetiapine Fumarate) 100 Mg Tablet 100 Mg PO TID Protonix (Pantoprazole Sodium) 40 Mg Tablet.dr 40 Mg PO DAILYAC Buspirone Hcl 5 Mg Tablet 1 Tab PO TID Senokot-S Tablet (Sennosides/Docusate Sodium) 1 Each Tablet 2 Tab PO BID 30 Days Metoprolol Tartrate 25 Mg Tablet 1 Tab PO BID Singulair Tablet (Montelukast Sodium) 10 Mg Tablet 10 Mg PO HS Vitals/I & O Vital Sign - Last 24 Hours 01/26/21 01/26/21 01/26/21 01/26/21 11:00 11:35 15:00 15:43 Temp 97.8 98.1 97.8 98.1 Pulse 83 83 Resp 19 18 B/P (MAP) 132/72 (92) 149/79 (102) Pulse Ox 98 100 99 100 O2 Delivery Tracheal Collar Tracheal Collar Tracheal Collar Tracheal Collar O2 Flow Rate 8.0 8.0 8.0 8.0 01/26/21 01/26/21 01/26/21 01/26/21 19:00 20:15 20:25 21:41 Temp 98.2 98.2 Pulse 83 Resp 18 B/P (MAP) 140/78 (98) Pulse Ox 99 98 98 O2 Delivery Tracheal Collar Trach Collar Tracheal Collar O2 Flow Rate 8.0 8.0 8.0 8.0 01/26/21 01/26/21 01/26/21 01/27/21 21:42 22:11 23:52 03:00 Temp 98.0 98.2 98.0 98.2 Pulse 83 86 78 Resp 16 18 B/P (MAP) 140/78 162/83 (109) 165/91 (115) Pulse Ox 98 100 99 O2 Delivery Tracheal Collar Tracheal Collar O2 Flow Rate 8.0 8.0 8.0 01/27/21 01/27/21 01/27/21 08:04 09:08 09:08 Pulse 78 78 B/P (MAP) 165/91 165/91 Pulse Ox 98 O2 Delivery Tracheal Collar O2 Flow Rate 8.0 Intake and Output 01/26/21 01/26/21 01/27/21 15:00 23:00 07:00 Intake Total 680 ml 600 ml Output Total 400 ml 2000 ml 300 ml Balance 280 ml -1400 ml -300 ml Justifications for Admission Other Justification ALVARO RHOADES MD Jan 27, 2021 09:41
--- NOTE | 2021-01-27 10:19 | PDOC ---
PROGRESS NOTES Date of Service: DATE: 01/27/21 TIME: 10:16 Subjective Subjective feels good Objective Objective Vital Signs Date Time Temp Pulse Resp B/P (MAP) Pulse Ox O2 Delivery O2 Flow Rate FiO2 01/27/21 09:08 78 165/91 01/27/21 08:04 98 Tracheal Collar 8.0 01/27/21 07:00 98.2 16 98.2 Intake and Output 01/27/21 07:00 Intake Total 1280 ml Output Total 2700 ml Balance -1420 ml Intake Oral 1280 ml Output Urine Total 2700 ml # Bowel Movements 4 Physical Exam Abdomen: Soft Heart: Normal S1, Normal S2 Extremities: No clubbing General: Alert HEENT: Atraumatic Lungs: Normal air movement MUSCULOSKELETAL: No swelling, Osteoarthritic changes both hands Neuro: Normal speech Psych/Mental Status: Mood NL Skin: No breakdown COMMENT tracheotomy present Diagnosis Problem List Problems Medical Problems: (1) COPD (chronic obstructive pulmonary disease) Status: Acute (2) Tracheostomy in place Status: Acute (3) Weakness Status: Acute Assessment Assessment 1. KATIUSKA 2. Recent COVID-19 pneumonia. 3. Acute on chronic hypoxic respiratory failure, now on PMV with trach shield, weaned off ventilation. 4. Diabetes mellitus type 2 with neuropathy. 5. Trauma to left foot with partial avulsion of the left second toenail. 6. Congestive heart failure, both diastolic and systolic, currently chronic with ejection fraction of 20-30% and diastolic dysfunction. 7. Hypertension. 8. Anemia. 9. Recent acute kidney injury with chronic kidney disease. 10. Coronary artery disease. 11. Reflux esophagitis. 12. History of drug abuse and alcohol abuse in the past. 13. Bilateral knee osteoarthritis 14. Hyperlipidemia. 15. Severe noncompliance. 16. Super morbid obesity. 17. Anemia. 18. Recent acute metabolic encephalopathy. PLAN: bl 150 today 350 yesterdat waiting for disposition stable clinically ch problems stable. Plan Plan of Care Problems Medical Problems: (1) COPD (chronic obstructive pulmonary disease) Status: Acute (2) Tracheostomy in place Status: Acute (3) Weakness Status: Acute Comment Review of Relevant I have reviewed the following items mukund (where applicable) has been applied. Labs Laboratory Tests Test 01/26/21 11:51 01/26/21 16:48 01/26/21 20:30 01/27/21 08:00 Glucose (Fingerstick) 222 mg/dL (70-99) 357 mg/dL (70-99) 315 mg/dL (70-99) 157 mg/dL (70-99) Microbiology 01/08/21 Urine Culture - Final, Complete 01/08/21 Blood Culture - Final, Complete NO GROWTH AFTER 5 DAYS Medications Current Medications Insulin Human Lispro (HumaLOG) 15 units 1X ONCE SQ Last administered on 01/26/21at 17:59; Start 01/26/21 at 18:00; Stop 01/26/21 at 18:01; Status DC Vitals/I & O Vital Sign - Last 24 Hours 01/26/21 01/26/21 01/26/21 01/26/21 11:00 11:35 15:00 15:43 Temp 97.8 98.1 97.8 98.1 Pulse 83 83 Resp 19 18 B/P (MAP) 132/72 (92) 149/79 (102) Pulse Ox 98 100 99 100 O2 Delivery Tracheal Collar Tracheal Collar Tracheal Collar Tracheal Collar O2 Flow Rate 8.0 8.0 8.0 8.0 01/26/21 01/26/21 01/26/21 01/26/21 19:00 20:15 20:25 21:41 Temp 98.2 98.2 Pulse 83 Resp 18 B/P (MAP) 140/78 (98) Pulse Ox 99 98 98 O2 Delivery Tracheal Collar Trach Collar Tracheal Collar O2 Flow Rate 8.0 8.0 8.0 8.0 01/26/21 01/26/21 01/26/21 01/27/21 21:42 22:11 23:52 03:00 Temp 98.0 98.2 98.0 98.2 Pulse 83 86 78 Resp 16 18 B/P (MAP) 140/78 162/83 (109) 165/91 (115) Pulse Ox 98 100 99 O2 Delivery Tracheal Collar Tracheal Collar O2 Flow Rate 8.0 8.0 8.0 01/27/21 01/27/21 01/27/21 01/27/21 07:00 08:04 09:08 09:08 Temp 98.2 98.2 Pulse 68 78 78 Resp 16 B/P (MAP) 152/97 (115) 165/91 165/91 Pulse Ox 97 98 O2 Delivery Tracheal Collar Tracheal Collar O2 Flow Rate 8.0 8.0 Intake and Output 01/26/21 01/26/21 01/27/21 15:00 23:00 07:00 Intake Total 680 ml 600 ml Output Total 400 ml 2000 ml 300 ml Balance 280 ml -1400 ml -300 ml Justifications for Admission Other Justification ARYA SAENZ MD Jan 27, 2021 10:18
[2021-01-27 11:00] VITALS: BP 118/69
[2021-01-27] MEDS: DICLOFENAC SODIUM 1% TOPICAL GEL 100GM TUBE. TP SCH ×2 (14:52→21:30)
[2021-01-27 15:00] VITALS: BP 108/64
[2021-01-27 19:00] VITALS: BP 131/80
[2021-01-27] MEDS: oxyCODONE IR 5 MG TABLET PO PRN (21:28)
[2021-01-27] MEDS: MONTELUKAST SODIUM 10 MG TABLET. PO SCH (21:29)
[2021-01-27] MEDS: clonazePAM 0.5 MG TABLET PO PRN (21:29)
[2021-01-27 23:00] VITALS: BP 149/86
[2021-01-28 03:00] VITALS: BP 166/96
[2021-01-28] MEDS: HEPARIN for SUB-Q USE 5,000 UNIT/ML VIAL. SQ SCH ×3 (06:17→23:11)
[2021-01-28 07:00] VITALS: BP 171/89
[2021-01-28] MEDS: IPRATRPIUM/ALBUTEROL 0.5/2.5MG 3 ML NEBU. NEB SCH ×4 (07:22→19:56)
[2021-01-28] MEDS: FLUTICASONE 50MCG/NASAL SPRAY 16GM BOTTLE. NS SCH (09:00)
[2021-01-28] MEDS: SENNOSIDES/DOCUSATE 8.6/50MG TABLET. PO SCH ×2 (09:15→21:37)
[2021-01-28] MEDS: ISOSORBIDE MONONITRATE ER 30 MG TAB.ER.24H PO SCH (09:16)
[2021-01-28] MEDS: buPROPion XL 150 MG TAB.ER.24H. PO SCH (09:16)
[2021-01-28] MEDS: MAGNESIUM OXIDE 400 MG TABLET PO SCH ×2 (09:16→21:37)
[2021-01-28] MEDS: ASPIRIN ENTERIC COATED 81 MG TABLET.DR. PO SCH (09:17)
[2021-01-28] MEDS: PANTOPRAZOLE 40 MG TABLET.DR. PO SCH (09:17)
[2021-01-28] MEDS: predniSONE 20 MG TABLET PO SCH (09:17)
[2021-01-28] MEDS: GABAPENTIN 300 MG CAPSULE. PO SCH ×3 (09:17→21:36)
[2021-01-28] MEDS: QUEtiapine 100 MG TABLET. PO SCH ×3 (09:17→21:39)
[2021-01-28] MEDS: DULoxetine HCL 30 MG CAPSULE.DR PO SCH (09:17)
[2021-01-28] MEDS: busPIRone 5 MG TABLET. PO SCH ×3 (09:17→21:38)
[2021-01-28] MEDS: METOPROLOL TART IMMED RELEASE 25 MG TABLET. PO SCH ×2 (09:18→21:39)
[2021-01-28] MEDS: DICLOFENAC SODIUM 1% TOPICAL GEL 100GM TUBE. TP SCH ×2 (09:18→21:37)
[2021-01-28] MEDS: INSULIN GLARGINE SYRINGE. SQ SCH ×2 (09:29→23:12)
--- NOTE | 2021-01-28 10:48 | PDOC ---
PROGRESS NOTES Date of Service: DATE: 01/28/21 TIME: 10:46 Subjective Subjective no new complaints, BS 200 to 350 range Objective Objective Vital Signs Date Time Temp Pulse Resp B/P (MAP) Pulse Ox O2 Delivery O2 Flow Rate FiO2 01/28/21 09:18 86 171/89 01/28/21 07:23 Tracheal Collar 8.0 01/28/21 07:00 97.5 16 100 97.5 Intake and Output 01/28/21 07:00 Output Total 2400 ml Balance -2400 ml Output Urine Total 2400 ml Physical Exam Abdomen: Soft Heart: Normal S1, Normal S2 Extremities: No clubbing General: Alert HEENT: Atraumatic Lungs: Normal air movement MUSCULOSKELETAL: No swelling, Osteoarthritic changes both hands Neuro: Normal speech Psych/Mental Status: Mood NL Skin: No breakdown COMMENT tracheotomy present Diagnosis Problem List Problems Medical Problems: (1) COPD (chronic obstructive pulmonary disease) Status: Acute (2) Tracheostomy in place Status: Acute (3) Weakness Status: Acute Assessment Assessment 1. KATIUSKA 2. Recent COVID-19 pneumonia. 3. Acute on chronic hypoxic respiratory failure, now on PMV with trach shield, weaned off ventilation. 4. Diabetes mellitus type 2 with neuropathy. 5. Trauma to left foot with partial avulsion of the left second toenail. 6. Congestive heart failure, both diastolic and systolic, currently chronic with ejection fraction of 20-30% and diastolic dysfunction. 7. Hypertension. 8. Anemia. 9. Recent acute kidney injury with chronic kidney disease. 10. Coronary artery disease. 11. Reflux esophagitis. 12. History of drug abuse and alcohol abuse in the past. 13. Bilateral knee osteoarthritis 14. Hyperlipidemia. 15. Severe noncompliance. 16. Super morbid obesity. 17. Anemia. 18. Recent acute metabolic encephalopathy. PLAN:Add humalog 10 u tid with meals. Lantus 40 u BID blood sugars 150 today 350 yesterday waiting for disposition stable clinically ch problems stable. Plan Plan of Care Problems Medical Problems: (1) COPD (chronic obstructive pulmonary disease) Status: Acute (2) Tracheostomy in place Status: Acute (3) Weakness Status: Acute Comment Review of Relevant I have reviewed the following items mukund (where applicable) has been applied. Labs Laboratory Tests Test 01/27/21 12:22 01/27/21 17:12 01/27/21 20:20 01/28/21 08:11 Glucose (Fingerstick) 197 mg/dL (70-99) 354 mg/dL (70-99) 385 mg/dL (70-99) 226 mg/dL (70-99) Microbiology 01/08/21 Urine Culture - Final, Complete 01/08/21 Blood Culture - Final, Complete NO GROWTH AFTER 5 DAYS Vitals/I & O Vital Sign - Last 24 Hours 01/27/21 01/27/21 01/27/21 01/27/21 11:00 11:50 15:00 16:57 Temp 97.7 97.5 97.7 97.5 Pulse 87 81 Resp 16 16 B/P (MAP) 118/69 (85) 108/64 (79) Pulse Ox 98 98 95 98 O2 Delivery Tracheal Collar Tracheal Collar O2 Flow Rate 8.0 8.0 01/27/21 01/27/21 01/27/21 01/27/21 19:00 19:53 20:00 21:28 Temp 97.6 97.6 Pulse 80 Resp 18 19 B/P (MAP) 131/80 (97) Pulse Ox 100 100 100 O2 Delivery Tracheal Collar Tracheal Collar Trach Collar Tracheal Collar O2 Flow Rate 8.0 8.0 8.0 8.0 01/27/21 01/27/21 01/27/21 01/28/21 21:30 21:58 23:00 03:00 Temp 98.0 98.0 98.0 98.0 Pulse 80 82 85 Resp 20 17 17 B/P (MAP) 131/80 149/86 (107) 166/96 (119) Pulse Ox 100 99 O2 Delivery Tracheal Collar Tracheal Collar Tracheal Collar O2 Flow Rate 8.0 8.0 01/28/21 01/28/21 01/28/21 01/28/21 07:00 07:23 09:16 09:18 Temp 97.5 97.5 Pulse 86 86 86 Resp 16 B/P (MAP) 171/89 (116) 171/89 171/89 Pulse Ox 100 O2 Delivery Tracheal Collar Tracheal Collar O2 Flow Rate 8.0 8.0 Intake and Output 01/27/21 01/27/21 01/28/21 15:00 23:00 07:00 Output Total 700 ml 300 ml 1400 ml Balance -700 ml -300 ml -1400 ml Justifications for Admission Other Justification ARYA SAENZ MD Jan 28, 2021 10:48
[2021-01-28 11:00] VITALS: BP 155/85
[2021-01-28] MEDS: INSULIN LISPRO 300 UNITS/3 ML VIAL. SQ SCH ×2 (12:28→17:51)
[2021-01-28 15:00] VITALS: BP 142/76
[2021-01-28 19:00] VITALS: BP 146/79
[2021-01-28] MEDS: clonazePAM 0.5 MG TABLET PO PRN (21:37)
[2021-01-28] MEDS: MONTELUKAST SODIUM 10 MG TABLET. PO SCH (21:38)
[2021-01-28] MEDS: oxyCODONE IR 5 MG TABLET PO PRN (21:38)
[2021-01-28 23:00] VITALS: BP 141/75
--- NOTE | 2021-01-29 00:31 | NUR ---
CALLED TO ASSESS PT WITH A TRACHEOSTOMY WITH 33% OXYGEN VIA HEATED PLATFORM INSPECTOR, WITH A TRACH COLLAR. PT COMPLAINING THAT HE'S NOT "GETTING ENOUGH AIR". UPON ARRIVAL, RN STATES THAT "ITS ALL FIXED NOW' PROCEEDED TO ASSESS PT. HE'S IN VISIBLE DISTRESS, SPEAKING VALVE IS IN PLACE AND TRACHEOSTOMY MORLEY IS UNDONE ON THE RIGHT SIDE. PT IS VISIBLY I DISTRESS. TRACH CARE DONE, INNER CANNULA AND STOMA CLEANED, DRESSING CHANGED DRESSING IS VERY DIRTY WITH AN ODOR, SATURATED WITH GREEN EXUDATE. PT STATES THAT HE FEELS BETTER. SPEAKING VALVE CLEANED AND LEFT OFF AT THE BEDSIDE. WILL CONTINUE TO MONITOR
[2021-01-29 03:00] VITALS: BP 152/87
[2021-01-29] MEDS: HEPARIN for SUB-Q USE 5,000 UNIT/ML VIAL. SQ SCH ×3 (05:55→23:12)
[2021-01-29 07:00] VITALS: BP 128/80
[2021-01-29] MEDS: IPRATRPIUM/ALBUTEROL 0.5/2.5MG 3 ML NEBU. NEB SCH ×4 (07:27→20:37)
[2021-01-29] MEDS: ASPIRIN ENTERIC COATED 81 MG TABLET.DR. PO SCH (08:58)
[2021-01-29] MEDS: GABAPENTIN 300 MG CAPSULE. PO SCH ×3 (08:58→22:15)
[2021-01-29] MEDS: MAGNESIUM OXIDE 400 MG TABLET PO SCH ×2 (08:59→22:13)
[2021-01-29] MEDS: PANTOPRAZOLE 40 MG TABLET.DR. PO SCH (08:59)
[2021-01-29] MEDS: SENNOSIDES/DOCUSATE 8.6/50MG TABLET. PO SCH ×2 (08:59→22:14)
[2021-01-29] MEDS: busPIRone 5 MG TABLET. PO SCH ×3 (08:59→22:15)
[2021-01-29] MEDS: DULoxetine HCL 30 MG CAPSULE.DR PO SCH (08:59)
[2021-01-29] MEDS: buPROPion XL 150 MG TAB.ER.24H. PO SCH (08:59)
[2021-01-29] MEDS: predniSONE 20 MG TABLET PO SCH (08:59)
[2021-01-29] MEDS: ISOSORBIDE MONONITRATE ER 30 MG TAB.ER.24H PO SCH (09:00)
[2021-01-29] MEDS: METOPROLOL TART IMMED RELEASE 25 MG TABLET. PO SCH ×2 (09:00→22:15)
[2021-01-29] MEDS: QUEtiapine 100 MG TABLET. PO SCH ×3 (09:00→22:14)
[2021-01-29] MEDS: FLUTICASONE 50MCG/NASAL SPRAY 16GM BOTTLE. NS SCH (09:01)
[2021-01-29] MEDS: DICLOFENAC SODIUM 1% TOPICAL GEL 100GM TUBE. TP SCH ×2 (09:01→22:13)
[2021-01-29] MEDS: INSULIN LISPRO 300 UNITS/3 ML VIAL. SQ SCH ×3 (09:11→17:18)
[2021-01-29] MEDS: INSULIN GLARGINE SYRINGE. SQ SCH (09:12)
--- NOTE | 2021-01-29 09:31 | PDOC ---
IM PROGRESS NOTES- Subjective Subjective Cough and congestion are improving. Objective Vitals/I&O Vital Signs Date Time Temp Pulse Resp B/P (MAP) Pulse Ox O2 Delivery O2 Flow Rate FiO2 01/29/21 09:00 82 128/80 01/29/21 07:28 100 Tracheal Collar 8.0 01/29/21 07:00 97.7 20 97.7 I & O 01/28/21 01/28/21 01/29/21 15:00 23:00 07:00 Output Total 250 ml 800 ml 650 ml Balance -250 ml -800 ml -650 ml Physical Exam Physical Exam General Appearance - alert and in no distress Chest - decreased breath sounds at bases He has a tracheostomy tube with PMV and trach shield Heart - S1 and S2 normal Abdomen - soft, non tender Neurological - alert and oriented Musculoskeletal - generalized weakness Extremities - no edema Labs Laboratory Tests Test 01/28/21 12:03 01/28/21 17:34 01/28/21 21:42 01/29/21 08:13 Glucose (Fingerstick) 293 mg/dL (70-99) H 374 mg/dL (70-99) H 297 mg/dL (70-99) H 186 mg/dL (70-99) H Meds Current Medications Medications (Trade) Dose Ordered Sig/Linden Route PRN Reason Start Time Stop Time Status Last Admin Dose Admin Insulin Human Lispro (HumaLOG) 10 units TIDAC SQ 01/28/21 11:30 01/29/21 09:11 Assessment Assessment 1. KATIUSKA 2. Recent COVID-19 pneumonia. 3. Acute on chronic hypoxic respiratory failure, now on PMV with trach shield, weaned off ventilation. 4. Diabetes mellitus type 2 with neuropathy. 5. Trauma to left foot with partial avulsion of the left second toenail. 6. Congestive heart failure, both diastolic and systolic, currently chronic with ejection fraction of 20-30% and diastolic dysfunction. 7. Hypertension. 8. Anemia. 9. Recent acute kidney injury with chronic kidney disease. 10. Coronary artery disease. 11. Reflux esophagitis. 12. History of drug abuse and alcohol abuse in the past. 13. Bilateral knee osteoarthritis 14. Hyperlipidemia. 15. Severe noncompliance. 16. Super morbid obesity. 17. Anemia. 18. Recent acute metabolic encephalopathy. PLAN: Consult Dr. Harvey for pulmonary evaluation and management. Consult Dr. Duane Torres for Infectious Disease evaluation and because of the fever. The patient currently not on antibiotics. Discussed with geriatric social work professor consider placing him in a correction unit when possible. I will order urinalysis, urine culture and blood cultures. Monitor fever. For details, please refer to the orders. Fever resolved. consult Dr. Mohamud- toe injury. He debrided his nails. Avulsion injury of the toenail improving. Physical deconditioning with neuropathy-continue PT OT. Dose of gabapentin increased. Discussed with Dr. Willis. Patient has bilateral foot drop and needs ankle braces. Diabetic neuropathy-he will need diabetic shoes. Blood sugar elevated due to steroids.increase Lantus to 45 units subcu twice daily. Continue Humalog 10 units subcu 3 times a day. Continue sliding scale insulin. Renal function and hyperkalemia are improving. Elevated LFTs getting worse. Consult Dr. Jalloh for GI evaluation and management. He recently had liver imaging. LFTs elevated due to medication effect, fatty liver and CHF. Discussed with Dr. Willis. Transfer to SNF when accepted. Acute exacerbation of COPD. Improving. Prednisone 20 mg daily for 7 days. Patient is a tracheostomy tube with PMV. Patient is advised to follow-up with Dr. Harvey as outpatient when [facility]. I have recommended to him that he may benefit from leaving the tracheostomy tube in, permanently because he also has obstructive sleep apnea. He should discuss this with his jacquard loom card changer as outpatient. Please refer to the discharge summary for more details. Discharge management 35 minutes. Plan Plan For more details regarding further plans, please refer to the orders. Justifications for Admission Other Justification PADDY LINCOLN MD Jan 29, 2021 09:31
[2021-01-29] MEDS ORDERED: Diclofenac Sodium TP (09:35)
[2021-01-29] MEDS ORDERED: INSU100V35 SQ (09:35)
[2021-01-29] MEDS ORDERED: GABA300C18 PO (09:35)
[2021-01-29] MEDS ORDERED: INSU100I13 SQ (09:35)
[2021-01-29] MEDS ORDERED: INSULIN GLARGINE SYRINGE. SQ ONE (09:45)
--- NOTE | 2021-01-29 09:47 | PDOC ---
Date of Service: DATE: 01/29/21 TIME: 09:43 Subjective: Subjective: Breathing so-so, better if trach collar "stays on." Eating well. Objective: Objective: Reviewed chart, some resp issues overnight. Has DC order. Vital Signs: Vital Signs Date Time Temp Pulse Resp B/P (MAP) Pulse Ox O2 Delivery O2 Flow Rate FiO2 01/29/21 09:00 82 128/80 01/29/21 07:28 100 Tracheal Collar 8.0 01/29/21 07:00 97.7 20 97.7 Labs: Laboratory Tests Test 01/28/21 12:03 01/28/21 17:34 01/28/21 21:42 01/29/21 08:13 Glucose (Fingerstick) 293 mg/dL 374 mg/dL 297 mg/dL 186 mg/dL PE: GEN: NAD LUNGS: diminished, trach collar 8L HEART: RRR ABD: large, soft, non-tender NEURO/PSYCH: A & O 3 A/P: Chronic resp failure Abnormal LFTs - checked 01/23 - SPEP pending -- DC today? Follow-up re: pending data. Justicifation of Admission Dx: Justifications for Admission: Justification of Admission Dx: Comment: (Acute on chronic hypoxic respiratory failure) ADILIA CUMMINGS Jan 29, 2021 09:47
[2021-01-29 11:00] VITALS: BP 121/58
[2021-01-29 15:00] VITALS: BP 122/67
--- NOTE | 2021-01-29 15:20 | PDOC ---
PROGRESS NOTES Date of Service DATE: 01/29/21 TIME: 15:18 Subjective Subjective No new problems. Objective Objective Vital Signs Date Time Temp Pulse Resp B/P (MAP) Pulse Ox O2 Delivery O2 Flow Rate FiO2 01/29/21 12:15 Tracheal Collar 8.0 01/29/21 11:00 97.7 84 20 121/58 (79) 100 97.7 Intake and Output 01/29/21 07:00 Output Total 1700 ml Balance -1700 ml Output Urine Total 1700 ml # Voids 5 # Bowel Movements 1 Physical Exam Physical Exam He is resting supine in bed with trach shield on this AM when I saw him. He continues with bilateral foot drop. Assessment Assessment Problems Medical Problems: (1) COPD (chronic obstructive pulmonary disease) Status: Acute (2) Tracheostomy in place Status: Acute (3) Weakness Status: Acute Plan Plan of Care Agree with plans for placement when arrangements are completed. Comment Review of Relevant I have reviewed the following items mukund (where applicable) has been applied. Labs Laboratory Tests Test 01/27/21 17:12 01/27/21 20:20 01/28/21 08:11 01/28/21 12:03 Glucose (Fingerstick) 354 mg/dL (70-99) 385 mg/dL (70-99) 226 mg/dL (70-99) 293 mg/dL (70-99) Test 01/28/21 17:34 01/28/21 21:42 01/29/21 08:13 01/29/21 11:41 Glucose (Fingerstick) 374 mg/dL (70-99) 297 mg/dL (70-99) 186 mg/dL (70-99) 249 mg/dL (70-99) Laboratory Tests Test 01/28/21 17:34 01/28/21 21:42 01/29/21 08:13 01/29/21 11:41 Glucose (Fingerstick) 374 mg/dL (70-99) 297 mg/dL (70-99) 186 mg/dL (70-99) 249 mg/dL (70-99) Microbiology 01/08/21 Urine Culture - Final, Complete 01/08/21 Blood Culture - Final, Complete NO GROWTH AFTER 5 DAYS Medications Current Medications Ondansetron HCl (Zofran) 4 mg PRN Q8HRS PRN IVP NAUSEA/VOMITING Last administered on 01/08/21 12:22; Start 01/07/21 at 21:30; Stop 01/08/21 at 21:29; Status DC Pharmacy Consult (C.diff Med Screen By Rx) 1 each 1X ONCE [facility] ; Start 01/08/21 at 02:45; Stop 01/08/21 at 02:46; Status Cancel Influenza Virus Vaccine Quadrival (Flulaval Quad [id number] Syringe) 0.5 ml ONCE ONCE VAX IM Last administered on 01/08/21 13:46; Start 01/08/21 at 09:00; Stop 01/08/21 at 09:03; Status DC Aspirin (Ecotrin) 81 mg DAILYWBKFT PO Last administered on 01/29/21 08:58; Start 01/09/21 at 08:00 Buspirone HCl (Buspar) 5 mg TID PO Last administered on 01/29/21 08:59; Start 01/08/21 at 09:00 Gabapentin (Neurontin) 300 mg QID PO Last administered on 01/18/21 09:18; Start 01/08/21 at 09:00; Stop 01/18/21 at 10:00; Status DC Albuterol/ Ipratropium (Duoneb) 3 ml RTQID NEB Last administered on 01/29/21 12:15; Start 01/08/21 at 12:00 Isosorbide Mononitrate (Imdur) 30 mg DAILY PO Last administered on 01/29/21 09:00; Start 01/08/21 at 09:00 Magnesium Oxide (Magnesium Oxide) 800 mg BID PO Last administered on 01/29/21 08:59; Start 01/08/21 at 09:00 Metoprolol Tartrate (Lopressor) 25 mg BID PO Last administered on 01/29/21 09:00; Start 01/08/21 at 09:00 Montelukast Sodium (Singulair) 10 mg HS PO Last administered on 01/28/21 21:38; Start 01/08/21 at 21:00 Pantoprazole Sodium (Protonix) 40 mg DAILYAC PO Last administered on 01/29/21 08:59; Start 01/08/21 at 09:00 Quetiapine Fumarate (SEROquel) 100 mg TID PO Last administered on 10/25/21at 09:00; Start 01/08/21 at 09:00 Senna/Docusate Sodium (Senna Plus) 2 tab BID PO Last administered on 01/29/21at 08:59; Start 01/08/21 at 09:00 Bupropion HCl (Wellbutrin Xl) 300 mg DAILY PO Last administered on 01/29/21at 0 8:59; Start 01/08/21 at 09:00 Clonazepam (KlonoPIN) 0.5 mg PRN Q12HRS PRN PO ANXIETY / AGITATION Last administered on 01/28/21at 21:37; Start 01/08/21 at 09:15 Duloxetine HCl (Cymbalta) 60 mg DAILY PO Last administered on 01/29/21at 08:59; Start 01/08/21 at 09:00 Fluticasone Propionate (Flonase) 2 spray DAILY NS Last administered on 01/29/21 09:01; Start 01/08/21 at 09:00 Non-Formulary Medication (Glucagon,Human Recombinant (Glucagon Emergency Kit)) 1 mg low blood sugar IM ; Start 01/08/21 at 09:00; Status UNV Heparin Sodium (Porcine) (Heparin Sodium) 5,000 unit Q8HRS SQ Last administered on 01/29/21at 05:55; Start 01/08/21 at 14:00 Insulin Glargine (Lantus Syringe) 34 unit BID SQ Last administered on 01/23/21at 21:33; Start 01/08/21 at 09:00; Stop 01/24/21 at 08:52; Status DC Non-Formulary Medication (Melatonin ) 2 tab QHS PO ; Start 01/08/21 at 21:00; Status UNV Oxycodone HCl (Roxicodone) 15 mg PRN Q6HRS PRN PO MODERATE-SEVERE PAIN Last administered on 01/28/21 21:38; Start 01/08/21 at 09:15 Acetaminophen (Tylenol) 650 mg PRN Q6HRS PRN PO MILD PAIN / TEMP > 100.3'F; Start 01/08/21 at 09:00 Gabapentin (Neurontin) 600 mg TID PO Last administered on 01/29/21at 08:58; Start 01/18/21 at 14:00 Diclofenac Sodium (Voltaren) 1 lizz BID TP Last administered on 01/29/21at 09:01; Start 01/19/21 at 11:00 Methylprednisolone Sodium Succinate (SOLU-Medrol 40MG VIAL) 60 mg 1X ONCE IV ; Start 01/23/21 at 09:45; Stop 01/23/21 at 10:57; Status DC Prednisone (Prednisone) 60 mg 1X ONCE PO Last administered on 01/23/21at 11:05; Start 01/23/21 at 11:00; Stop 01/23/21 at 11:01; Status DC Insulin Glargine (Lantus Syringe) 36 unit BID SQ Last administered on 01/25/21at 21:04; Start 01/24/21 at 09:30; Stop 01/26/21 at 09:35; Status DC Prednisone (Prednisone) 20 mg DAILY PO Last administered on 01/29/21at 08:59; Start 01/24/21 at 09:00; Stop 01/30/21 at 09:01 Insulin Glargine (Lantus Syringe) 40 unit BID SQ Last administered on 01/29/21at 09:12; Start 01/26/21 at 10:00; Stop 01/29/21 at 09:29; Status DC Insulin Human Lispro (HumaLOG) 15 units 1X ONCE SQ Last administered on 01/26/21at 17:59; Start 01/26/21 at 18:00; Stop 01/26/21 at 18:01; Status DC Insulin Human Lispro (HumaLOG) 10 units TIDAC SQ Last administered on 01/29/21at 12:44; Start 01/28/21 at 11:30 Insulin Glargine (Lantus Syringe) 46 unit BID SQ ; Start 01/29/21 at 21:00 Insulin Glargine (Lantus Syringe) 6 unit 1X ONCE SQ Last administered on 01/29/21at 11:00; Start 01/29/21 at 09:45; Stop 01/29/21 at 09:46; Status DC Active Scripts Active Admelog (Insulin Lispro) 100 Unit/1 Ml Vial 10 Units SQ TIDAC 30 Days Gabapentin 300 Mg Capsule 600 Mg PO TID 30 Days [Diclofenac Sodium] 100 GM Gel..gram. 1 Lizz TP BID Lantus Solostar (Insulin Glargine,Hum.rec.anlog) 100 Unit/1 Ml Insuln.pen 46 Unit SQ BID Hold if blood sugar less than 100. Prednisone 20 Mg Tablet 1 Tab PO DAILY Gabapentin (Gabapentin) 300 Mg Capsule 600 Mg PO TID 30 Days Acetaminophen 325 Mg Tablet 650 Mg PO PRN Q6HRS PRN Wellbutrin Xl (Bupropion Hcl) 300 Mg Tab.er.24h 1 Tab PO DAILY Duoneb 0.5-3(2.5) Mg/3 Ml (Albuterol/Ipratropium) 3 Ml Ampul.neb 3 Ml NEB RTQID 30 Days Aspirin Ec (Aspirin) 81 Mg Tablet. 81 Mg PO DAILYWBKFT Reported Glucagon Emergency Kit (Glucagon,Human Recombinant) 1 Mg Kit 1 Mg IM LOW BLOOD SUGAR Cymbalta (Duloxetine Hcl) 60 Mg Capsule. 1 Cap PO DAILY Heparin 2,000 Unit/2 Ml Vial (Heparin Sodium,Porcine/Pf) 1,000 Unit/1 Ml Vial 5,000 Unit IJ Q8HRS Isosorbide Mononitrate Er (Isosorbide Mononitrate) 30 Mg Tab.er.24h 1 Tab PO DAILY Clonazepam 1 Mg Tablet 0.5 Mg PO PRN BID PRN Magnesium Oxide 400 Mg Tablet 2 Tab PO BID Melatonin 3 Mg Tab.rapdis 2 Tab PO QHS 30 Days Oxycodone Hcl Immed.release (Oxycodone Hcl) 15 Mg Tablet 15 Mg PO PRN Q6HRS PRN Flonase Allergy Relief (Fluticasone Propionate) 9.9 Ml [place].susp 2 Sprays NS DAILY Seroquel (Quetiapine Fumarate) 100 Mg Tablet 100 Mg PO TID Protonix (Pantoprazole Sodium) 40 Mg Tablet.dr 40 Mg PO DAILYAC Buspirone Hcl 5 Mg Tablet 1 Tab PO TID Senokot-S Tablet (Sennosides/Docusate Sodium) 1 Each Tablet 2 Tab PO BID 30 Days Metoprolol Tartrate 25 Mg Tablet 1 Tab PO BID Singulair Tablet (Montelukast Sodium) 10 Mg Tablet 10 Mg PO HS Vitals/I & O Vital Sign - Last 24 Hours 01/28/21 01/28/21 01/28/21 01/28/21 16:18 19:00 20:00 20:01 Temp 98.1 98.1 Pulse 92 Resp 18 B/P (MAP) 146/79 (101) Pulse Ox 100 100 100 O2 Delivery Tracheal Collar Tracheal Collar Trach Collar Tracheal Collar O2 Flow Rate 8.0 94.0 8.0 8.0 01/28/21 01/28/21 01/28/21 01/28/21 21:38 21:39 22:08 23:00 Temp 97.9 97.9 Pulse 92 81 Resp 19 19 17 B/P (MAP) 146/79 141/75 (97) Pulse Ox 96 O2 Delivery Tracheal Collar Tracheal Collar Tracheal Collar O2 Flow Rate 8.0 8.0 01/29/21 01/29/21 01/29/21 01/29/21 00:29 03:00 07:00 07:28 Temp 97.9 97.7 97.9 97.7 Pulse 87 82 Resp 20 20 B/P (MAP) 152/87 (108) 128/80 (96) Pulse Ox 95 97 97 100 O2 Delivery Tracheal Collar Tracheal Collar Tracheal Collar O2 Flow Rate 8.0 8.0 8.0 8.0 01/29/21 01/29/21 01/29/21 01/29/21 09:00 09:00 11:00 12:15 Temp 97.7 97.7 Pulse 82 82 84 Resp 20 B/P (MAP) 128/80 128/80 121/58 (79) Pulse Ox 100 O2 Delivery Tracheal Collar Tracheal Collar O2 Flow Rate 8.0 8.0 Intake and Output 01/28/21 01/28/21 01/29/21 15:00 23:00 07:00 Output Total 250 ml 800 ml 650 ml Balance -250 ml -800 ml -650 ml Justifications for Admission Other Justification ALVARO RHOADES MD Jan 29, 2021 15:20
[2021-01-29 19:33] VITALS: BP 141/72
[2021-01-29] MEDS ORDERED: INSULIN GLARGINE SYRINGE. SQ SCH (21:00)
[2021-01-29] MEDS: oxyCODONE IR 5 MG TABLET PO PRN (22:14)
[2021-01-29] MEDS: MONTELUKAST SODIUM 10 MG TABLET. PO SCH (22:15)
[2021-01-29] MEDS: clonazePAM 0.5 MG TABLET PO PRN (22:15)
[2021-01-29 23:04] VITALS: BP 147/77
[2021-01-30 03:26] VITALS: BP_SYST 142; BP_SYST 154; BP_DIAS 72; BP_DIAS 84
[2021-01-30] MEDS: HEPARIN for SUB-Q USE 5,000 UNIT/ML VIAL. SQ SCH (05:46)
[2021-01-30 07:00] VITALS: BP 149/82
[2021-01-30] MEDS: PANTOPRAZOLE 40 MG TABLET.DR. PO SCH (07:34)
[2021-01-30] MEDS: IPRATRPIUM/ALBUTEROL 0.5/2.5MG 3 ML NEBU. NEB SCH ×2 (07:34→11:44)
[2021-01-30] MEDS: INSULIN LISPRO 300 UNITS/3 ML VIAL. SQ SCH (07:38)
[2021-01-30] MEDS: ASPIRIN ENTERIC COATED 81 MG TABLET.DR. PO SCH (07:39)
[2021-01-30] MEDS: DICLOFENAC SODIUM 1% TOPICAL GEL 100GM TUBE. TP SCH (09:00)
--- NOTE | 2021-01-30 09:55 | PDOC ---
IM PROGRESS NOTES- Subjective Subjective Cough and congestion are improving. Objective Vitals/I&O Vital Signs Date Time Temp Pulse Resp B/P (MAP) Pulse Ox O2 Delivery O2 Flow Rate FiO2 01/30/21 07:43 Trach Collar 8.0 01/30/21 07:34 100 01/30/21 07:00 97.9 84 22 149/82 (104) 97.9 I & O 01/29/21 01/29/21 01/30/21 15:00 23:00 07:00 Intake Total 280 ml 180 ml 1240 ml Output Total 2350 ml Balance 280 ml 180 ml -1110 ml Physical Exam Physical Exam General Appearance - alert and in no distress Chest - decreased breath sounds at bases Heart - S1 and S2 normal Abdomen - soft, non tender Neurological - alert and oriented Musculoskeletal - generalized weakness Extremities - no edema Labs Laboratory Tests Test 01/29/21 11:41 01/29/21 16:43 01/29/21 20:19 01/30/21 07:36 Glucose (Fingerstick) 249 mg/dL (70-99) H 344 mg/dL (70-99) H 331 mg/dL (70-99) H 205 mg/dL (70-99) H Meds Current Medications Medications (Trade) Dose Ordered Sig/Linden Route PRN Reason Start Time Stop Time Status Last Admin Dose Admin Insulin Glargine (Lantus Syringe) 46 unit BID SQ 01/29/21 21:00 01/29/21 23:11 Assessment Assessment 1. KATIUSKA 2. Recent COVID-19 pneumonia. 3. Acute on chronic hypoxic respiratory failure, now on PMV with trach shield, weaned off ventilation. 4. Diabetes mellitus type 2 with neuropathy. 5. Trauma to left foot with partial avulsion of the left second toenail. 6. Congestive heart failure, both diastolic and systolic, currently chronic with ejection fraction of 20-30% and diastolic dysfunction. 7. Hypertension. 8. Anemia. 9. Recent acute kidney injury with chronic kidney disease. 10. Coronary artery disease. 11. Reflux esophagitis. 12. History of drug abuse and alcohol abuse in the past. 13. Bilateral knee osteoarthritis 14. Hyperlipidemia. 15. Severe noncompliance. 16. Super morbid obesity. 17. Anemia. 18. Recent acute metabolic encephalopathy. PLAN: Consult Dr. Harvey for pulmonary evaluation and management. Consult Dr. Duane Torres for Infectious Disease evaluation and because of the fever. The patient currently not on antibiotics. Discussed with social secretary consider placing him in a prison unit when possible. I will order urinalysis, urine culture and blood cultures. Monitor fever. For details, please refer to the orders. Fever resolved. consult Dr. Mohamud- toe injury. He debrided his nails. Avulsion injury of the toenail improving. Physical deconditioning with neuropathy-continue PT OT. Dose of gabapentin increased. Discussed with Dr. Willis. Patient has bilateral foot drop and needs ankle braces. Diabetic neuropathy-he will need diabetic shoes. Blood sugar elevated due to steroids.increase Lantus to 50 units subcu twice daily. Increase Humalog 15 units subcu 3 times a day. Continue sliding scale insulin. Renal function and hyperkalemia are improving. Elevated LFTs getting worse. Consult Dr. Jalloh for GI evaluation and management. He recently had liver imaging. LFTs elevated due to medication effect, fatty liver and CHF. Discussed with Dr. Willis. Transfer to SNF when accepted. Acute exacerbation of COPD. Improving. Prednisone 20 mg daily for 7 days. Patient is a tracheostomy tube with PMV. Patient is advised to follow-up with Dr. Harvey as outpatient when discharged from the senior living. I have recommended to him that he may benefit from leaving the tracheostomy tube in, pe rmanently because he also has obstructive sleep apnea. He should discuss this with his manager immunology as outpatient. Please refer to the discharge summary for more details. Discharge management 35 minutes. Plan Plan For more details regarding further plans, please refer to the orders. Justifications for Admission Other Justification PADDY LINCOLN MD Jan 30, 2021 09:55
[2021-01-30] MEDS ORDERED: INSU100V35 SQ (09:58)
[2021-01-30] MEDS ORDERED: INSU100I13 SQ (09:58)
[2021-01-30] MEDS: predniSONE 20 MG TABLET PO SCH (10:07)
[2021-01-30] MEDS: FLUTICASONE 50MCG/NASAL SPRAY 16GM BOTTLE. NS SCH (10:07)
[2021-01-30] MEDS: GABAPENTIN 300 MG CAPSULE. PO SCH (10:07)
[2021-01-30] MEDS: busPIRone 5 MG TABLET. PO SCH (10:08)
[2021-01-30] MEDS: METOPROLOL TART IMMED RELEASE 25 MG TABLET. PO SCH (10:08)
[2021-01-30] MEDS: QUEtiapine 100 MG TABLET. PO SCH (10:08)
[2021-01-30] MEDS: MAGNESIUM OXIDE 400 MG TABLET PO SCH (10:08)
[2021-01-30] MEDS: DULoxetine HCL 30 MG CAPSULE.DR PO SCH (10:08)
[2021-01-30] MEDS: ISOSORBIDE MONONITRATE ER 30 MG TAB.ER.24H PO SCH (10:08)
[2021-01-30] MEDS: SENNOSIDES/DOCUSATE 8.6/50MG TABLET. PO SCH (10:08)
[2021-01-30] MEDS: buPROPion XL 150 MG TAB.ER.24H. PO SCH (10:09)
--- NOTE | 2021-01-30 10:16 | NUR ---
This RN administered 46 units of Lantus, verified by Sergio Guevara RN. Administration not displayed in [employer]. Dose changed during administration. Refer to EMAR for further details.
[2021-01-30 11:00] VITALS: BP 123/60
--- NOTE | 2021-01-30 11:09 | PDOC ---
Date of Service: DATE: 01/30/21 TIME: 11:06 Objective: Objective: D/w staff - plans to DC at 1:30 today. Vital Signs: Vital Signs Date Time Temp Pulse Resp B/P (MAP) Pulse Ox O2 Delivery O2 Flow Rate FiO2 01/30/21 10:08 84 149/82 01/30/21 07:43 Trach Collar 8.0 01/30/21 07:34 100 01/30/21 07:00 97.9 22 97.9 Labs: Laboratory Tests Test 01/29/21 11:41 01/29/21 16:43 01/29/21 20:19 01/30/21 07:36 Glucose (Fingerstick) 249 mg/dL (70-99) 344 mg/dL (70-99) 331 mg/dL (70-99) 205 mg/dL (70-99) PE: GEN: NAD LUNGS: trach collar ABD: large NEURO/PSYCH: sleeping A/P: Chronic resp failure Abnormal LFTs - likely multi-factorial - AMA negative, SPEP w/o monoclonal spike -- Dc per primary. Justicifation of Admission Dx: Justifications for Admission: Justification of Admission Dx: Comment: (Acute on chronic hypoxic respiratory failure) ADILIA CUMMINGS Jan 30, 2021 11:09
[2021-01-30] MEDS ORDERED: INSULIN LISPRO 300 UNITS/3 ML VIAL. SQ SCH (11:30)
--- NOTE | 2021-01-30 12:40 | PDOC ---
PROGRESS NOTES Date of Service DATE: 01/30/21 TIME: 12:37 Subjective Subjective No new problems. Objective Objective Vital Signs Date Time Temp Pulse Resp B/P (MAP) Pulse Ox O2 Delivery O2 Flow Rate FiO2 01/30/21 11:40 100 Tracheal Collar 8.0 01/30/21 11:00 98.3 84 22 123/60 (81) 98.3 Intake and Output 01/30/21 07:00 Intake Total 1700 ml Output Total 2350 ml Balance -650 ml Intake Oral 1700 ml Output Urine Total 2350 ml Physical Exam Physical Exam He is sitting at edge of bed and eating lunch and no change with his bilateral f oot drop. Assessment Assessment Problems Medical Problems: (1) COPD (chronic obstructive pulmonary disease) Status: Acute (2) Tracheostomy in place Status: Acute (3) Weakness Status: Acute Plan Plan of Care I have written him a prescription for him to get bilateral ankle foot orthosis w ith single upright attached to diabetic shoes. Comment Review of Relevant I have reviewed the following items mukund (where applicable) has been applied. Labs Laboratory Tests Test 01/28/21 17:34 01/28/21 21:42 01/29/21 08:13 01/29/21 11:41 Glucose (Fingerstick) 374 mg/dL (70-99) 297 mg/dL (70-99) 186 mg/dL (70-99) 249 mg/dL (70-99) Test 01/29/21 16:43 01/29/21 20:19 01/30/21 07:36 01/30/21 12:06 Glucose (Fingerstick) 344 mg/dL (70-99) 331 mg/dL (70-99) 205 mg/dL (70-99) 190 mg/dL (70-99) Laboratory Tests Test 01/29/21 16:43 01/29/21 20:19 01/30/21 07:36 01/30/21 12:06 Glucose (Fingerstick) 344 mg/dL (70-99) 331 mg/dL (70-99) 205 mg/dL (70-99) 190 mg/dL (70-99) Microbiology 01/08/21 Urine Culture - Final, Complete 01/08/21 Blood Culture - Final, Complete NO GROWTH AFTER 5 DAYS Medications Current Medications Ondansetron HCl (Zofran) 4 mg PRN Q8HRS PRN IVP NAUSEA/VOMITING Last administered on 01/08/21 12:22; Start 01/07/21 at 21:30; Stop 01/08/21 at 21:29; Status DC Pharmacy Consult (C.diff Med Screen By Rx) 1 each 1X ONCE [facility] ; Start 01/08/21 at 02:45; Stop 01/08/21 at 02:46; Status Cancel Influenza Virus Vaccine Quadrival (Flulaval Quad 1179-2401 Syringe) 0.5 ml ONCE ONCE VAX IM Last administered on 01/08/21at 13:46; Start 01/08/21 at 09:00; Sto p 01/08/21 at 09:03; Status DC Aspirin (Ecotrin) 81 mg DAILYWBKFT PO Last administered on 01/30/21at 07:39; Start 01/09/21 at 08:00 Buspirone HCl (Buspar) 5 mg TID PO Last administered on 01/30/21at 10:08; Start 01/08/21 at 09:00 Gabapentin (Neurontin) 300 mg QID PO Last administered on 01/18/21at 09:18; Start 01/08/21 at 09:00; Stop 01/18/21 at 10:00; Status DC Albuterol/ Ipratropium (Duoneb) 3 ml RTQID NEB Last administered on 01/30/21at 11:44; Start 01/08/21 at 12:00 Isosorbide Mononitrate (Imdur) 30 mg DAILY PO Last administered on 01/30/21 10:08; Start 01/08/21 at 09:00 Magnesium Oxide (Magnesium Oxide) 800 mg BID PO Last administered on 01/30/21at 10:08; Start 01/08/21 at 09:00 Metoprolol Tartrate (Lopressor) 25 mg BID PO Last administered on 01/30/21 10:08; Start 01/08/21 at 09:00 Montelukast Sodium (Singulair) 10 mg HS PO Last administered on 01/29/21at 22:15; Start 01/08/21 at 21:00 Pantoprazole Sodium (Protonix) 40 mg DAILYAC PO Last administered on 01/30/21 07:34; Start 01/08/21 at 09:00 Quetiapine Fumarate (SEROquel) 100 mg TID PO Last administered on 01/30/21 10:08; Start 01/08/21 at 09:00 Senna/Docusate Sodium (Senna Plus) 2 tab BID PO Last administered on 01/30/21at 10:08; Start 01/08/21 at 09:00 Bupropion HCl (Wellbutrin Xl) 300 mg DAILY PO Last administered on 01/30/21 10:09; Start 01/08/21 at 09:00 Clonazepam (KlonoPIN) 0.5 mg PRN Q12HRS PRN PO ANXIETY / AGITATION Last administered on 01/29/21 22:15; Start 01/08/21 at 09:15 Duloxetine HCl (Cymbalta) 60 mg DAILY PO Last administered on 01/30/21 10:08; Start 01/08/21 at 09:00 Fluticasone Propionate (Flonase) 2 spray DAILY NS Last administered on 01/30/21 10:07; Start 01/08/21 at 09:00 Non-Formulary Medication (Glucagon,Human Recombinant (Glucagon Emergency Kit)) 1 mg low blood sugar IM ; Start 01/08/21 at 09:00; Status UNV Heparin Sodium (Porcine) (Heparin Sodium) 5,000 unit Q8HRS SQ Last administered on 01/30/21at 05:46; Start 01/08/21 at 14:00 Insulin Glargine (Lantus Syringe) 34 unit BID SQ Last administered on 01/23/21at 21:33; Start 01/08/21 at 09:00; Stop 01/24/21 at 08:52; Status DC Non-Formulary Medication (Melatonin ) 2 tab QHS PO ; Start 01/08/21 at 21:00; Status UNV Oxycodone HCl (Roxicodone) 15 mg PRN Q6HRS PRN PO MODERATE-SEVERE PAIN Last administered on 01/29/21at 22:14; Start 01/08/21 at 09:15 Acetaminophen (Tylenol) 650 mg PRN Q6HRS PRN PO MILD PAIN / TEMP > 100.3'F; Start 01/08/21 at 09:00 Gabapentin (Neurontin) 600 mg TID PO Last administered on 01/30/21at 10:07; Start 01/18/21 at 14:00 Diclofenac Sodium (Voltaren) 1 lizz BID TP Last administered on 01/29/21at 22:13; Start 01/19/21 at 11:00 Methylprednisolone Sodium Succinate (SOLU-Medrol 40MG VIAL) 60 mg 1X ONCE IV ; Start 01/23/21 at 09:45; Stop 01/23/21 at 10:57; Status DC Prednisone (Prednisone) 60 mg 1X ONCE PO Last administered on 01/23/21at 11:05; Start 01/23/21 at 11:00; Stop 01/23/21 at 11:01; Status DC Insulin Glargine (Lantus Syringe) 36 unit BID SQ Last administered on 01/25/21at 21:04; Start 01/24/21 at 09:30; Stop 01/26/21 at 09:35; Status DC Prednisone (Prednisone) 20 mg DAILY PO Last administered on 01/30/21at 10:07; Start 01/24/21 at 09:00; Stop 01/30/21 at 09:01; Status DC Insulin Glargine (Lantus Syringe) 40 unit BID SQ Last administered on 01/29/21at 09:12; Start 01/26/21 at 10:00; Stop 01/29/21 at 09:29; Status DC Insulin Human Lispro (HumaLOG) 15 units 1X ONCE SQ Last administered on 01/26/21at 17:59; Start 01/26/21 at 18:00; Stop 01/26/21 at 18:01; Status DC Insulin Human Lispro (HumaLOG) 10 units TIDAC SQ Last administered on 01/30/21at 07:38; Start 01/28/21 at 11:30; Stop 01/30/21 at 10:09; Status DC Insulin Glargine (Lantus Syringe) 46 unit BID SQ Last administered on 01/29/21at 23:11; Start 01/29/21 at 21:00; Stop 01/30/21 at 10:09; Status DC Insulin Glargine (Lantus Syringe) 6 unit 1X ONCE SQ Last administered on 01/29/21at 11:00; Start 01/29/21 at 09:45; Stop 01/29/21 at 09:46; Status DC Insulin Glargine (Lantus Syringe) 50 unit BID SQ ; Start 01/30/21 at 21:00 Insulin Human Lispro (HumaLOG) 15 units TIDAC SQ Last administered on 01/30/21at 12:11; Start 01/30/21 at 11:30 Active Scripts Active Admelog (Insulin Lispro) 100 Unit/1 Ml Vial 15 Units SQ TIDAC 30 Days Lantus Solostar (Insulin Glargine,Hum.rec.anlog) 100 Unit/1 Ml Insuln.pen 50 Unit SQ BID Hold if blood sugar less than 100. Gabapentin 300 Mg Capsule 600 Mg PO TID 30 Days [Diclofenac Sodium] 100 GM Gel..gram. 1 Lizz TP BID Prednisone 20 Mg Tablet 1 Tab PO DAILY Gabapentin (Gabapentin) 300 Mg Capsule 600 Mg PO TID 30 Days Acetaminophen 325 Mg Tablet 650 Mg PO PRN Q6HRS PRN Wellbutrin Xl (Bupropion Hcl) 300 Mg Tab.er.24h 1 Tab PO DAILY Duoneb 0.5-3(2.5) Mg/3 Ml (Albuterol/Ipratropium) 3 Ml Ampul.neb 3 Ml NEB RTQID 30 Days Aspirin Ec (Aspirin) 81 Mg Tablet. 81 Mg PO DAILYWBKFT Reported Glucagon Emergency Kit (Glucagon,Human Recombinant) 1 Mg Kit 1 Mg IM LOW BLOOD SUGAR Cymbalta (Duloxetine Hcl) 60 Mg Capsule. 1 Cap PO DAILY Heparin 2,000 Unit/2 Ml Vial (Heparin Sodium,Porcine/Pf) 1,000 Unit/1 Ml Vial 5,000 Unit IJ Q8HRS Isosorbide Mononitrate Er (Isosorbide Mononitrate) 30 Mg Tab.er.24h 1 Tab PO DAILY Clonazepam 1 Mg Tablet 0.5 Mg PO PRN BID PRN Magnesium Oxide 400 Mg Tablet 2 Tab PO BID Melatonin 3 Mg Tab.rapdis 2 Tab PO QHS 30 Days Oxycodone Hcl Immed.release (Oxycodone Hcl) 15 Mg Tablet 15 Mg PO PRN Q6HRS PRN Flonase Allergy Relief (Fluticasone Propionate) 9.9 Ml [place].susp 2 Sprays NS DAILY Seroquel (Quetiapine Fumarate) 100 Mg Tablet 100 Mg PO TID Protonix (Pantoprazole Sodium) 40 Mg Tablet. 40 Mg PO DAILYAC Buspirone Hcl 5 Mg Tablet 1 Tab PO TID Senokot-S Tablet (Sennosides/Docusate Sodium) 1 Each Tablet 2 Tab PO BID 30 Days Metoprolol Tartrate 25 Mg Tablet 1 Tab PO BID Singulair Tablet (Montelukast Sodium) 10 Mg Tablet 10 Mg PO HS Vitals/I & O Vital Sign - Last 24 Hours 01/29/21 01/29/21 01/29/21 01/29/21 15:00 16:25 19:33 20:00 Temp 98.1 98.3 98.1 98.3 Pulse 80 85 Resp 20 18 B/P (MAP) 122/67 (85) 141/72 (95) Pulse Ox 97 97 O2 Delivery Tracheal Collar Tracheal Collar Tracheal Collar Trach Collar O2 Flow Rate 8.0 8.0 8.0 8.0 01/29/21 01/29/21 01/29/21 01/29/21 20:55 22:14 22:15 22:44 Pulse 85 Resp 18 20 B/P (MAP) 141/72 Pulse Ox 100 O2 Delivery Tracheal Collar Tracheal Collar Tracheal Collar O2 Flow Rate 8.0 8.0 8.0 01/29/21 01/30/21 01/30/21 01/30/21 23:04 03:26 07:00 07:34 Temp 97.7 98.1 97.9 97.7 98.1 97.9 Pulse 79 85 84 Resp 20 20 22 B/P (MAP) 147/77 (100) 154/84 (107) 149/82 (104) Pulse Ox 99 100 99 100 O2 Delivery Tracheal Collar Tracheal Collar Tracheal Collar Tracheal Collar O2 Flow Rate 8.0 8.0 8.0 8.0 01/30/21 01/30/21 01/30/21 01/30/21 07:43 10:08 10:08 11:00 Temp 98.3 98.3 Pulse 84 84 84 Resp 22 B/P (MAP) 149/82 149/82 123/60 (81) Pulse Ox 100 O2 Delivery Trach Collar Tracheal Collar O2 Flow Rate 8.0 8.0 01/30/21 11:40 Pulse Ox 100 O2 Delivery Tracheal Collar O2 Flow Rate 8.0 Intake and Output 01/29/21 01/29/21 01/30/21 15:00 23:00 07:00 Intake Total 280 ml 180 ml 1240 ml Output Total 2350 ml Balance 280 ml 180 ml -1110 ml Justifications for Admission Other Justification ALVARO RHOADES MD Jan 30, 2021 12:39
--- NOTE | 2021-01-30 13:45 | NUR ---
Pt left unit at 1340 by wheelchair via transportation. VSS, discharge paperwork sent with pt. Report called to MEAGAN Menjivar of [facility] at [phone].
[2021-01-30] MEDS ORDERED: INSULIN GLARGINE SYRINGE. SQ SCH (21:00)
== END 2021-01-30 14:00 | DRG 189 ==
LOC: ER 18:57 → 6 SOUTH 21:10 → 5 NORTH 01-08 22:23 → OBSVTOIN 01-09 10:06
PROVIDERS: ADMIT Internal Medicine; ATTEND Internal Medicine
PROC: 0HBRXZZ Excision of Toe Nail, External Approach (ICD-10-PCS; principal; 2021-01-09)
PROC: 0HBRXZZ Excision of Toe Nail, External Approach (ICD-10-PCS; 2021-01-09)
PROC: 0HBRXZZ Excision of Toe Nail, External Approach (ICD-10-PCS; 2021-01-09)
PROC: 0HBRXZZ Excision of Toe Nail, External Approach (ICD-10-PCS; 2021-01-09)
PROC: 0HBRXZZ Excision of Toe Nail, External Approach (ICD-10-PCS; 2021-01-09)
PROC: 0HBRXZZ Excision of Toe Nail, External Approach (ICD-10-PCS; 2021-01-09)
PROC: 0HBRXZZ Excision of Toe Nail, External Approach (ICD-10-PCS; 2021-01-09)
PROC: 0HBRXZZ Excision of Toe Nail, External Approach (ICD-10-PCS; 2021-01-09)
PROC: 0HBRXZZ Excision of Toe Nail, External Approach (ICD-10-PCS; 2021-01-09)
PROC: 0HBRXZZ Excision of Toe Nail, External Approach (ICD-10-PCS; 2021-01-09)
DX: J96.21 Acute and chronic respiratory failure with hypoxia (principal); I50.43 Acute on chronic combined systolic (congestive) and diastolic (congestive) heart failure; I13.0 Hypertensive heart and chronic kidney disease with heart failure and stage 1 through stage 4 chronic kidney disease, or unspecified chronic kidney disease; I42.9 Cardiomyopathy, unspecified; J44.1 Chronic obstructive pulmonary disease with (acute) exacerbation; Z68.42 Body mass index [BMI] 45.0-49.9, adult; Z20.822 Contact with and (suspected) exposure to COVID-19; B35.1 Tinea unguium; D64.9 Anemia, unspecified; E11.22 Type 2 diabetes mellitus with diabetic chronic kidney disease; E11.42 Type 2 diabetes mellitus with diabetic polyneuropathy; E11.51 Type 2 diabetes mellitus with diabetic peripheral angiopathy without gangrene; E66.01 Morbid (severe) obesity due to excess calories; E78.00 Pure hypercholesterolemia, unspecified; E78.5 Hyperlipidemia, unspecified; E87.5 Hyperkalemia; F17.210 Nicotine dependence, cigarettes, uncomplicated; F41.9 Anxiety disorder, unspecified; G47.33 Obstructive sleep apnea (adult) (pediatric); I25.10 Atherosclerotic heart disease of native coronary artery without angina pectoris; K21.00 Gastro-esophageal reflux disease with esophagitis, without bleeding; L60.0 Ingrowing nail; L60.1 Onycholysis; M16.12 Unilateral primary osteoarthritis, left hip; M21.371 Foot drop, right foot; M21.372 Foot drop, left foot; N18.9 Chronic kidney disease, unspecified; R13.10 Dysphagia, unspecified; Z96.659 Presence of unspecified artificial knee joint; X58.XXXA Exposure to other specified factors, initial encounter; S91.205A Unspecified open wound of left lesser toe(s) with damage to nail, initial encounter; R79.89 Other specified abnormal findings of blood chemistry; T38.0X5A Adverse effect of glucocorticoids and synthetic analogues, initial encounter; Z86.14 Personal history of Methicillin resistant Staphylococcus aureus infection; Z87.11 Personal history of peptic ulcer disease; Z90.49 Acquired absence of other specified parts of digestive tract; Z91.19 Patient's noncompliance with other medical treatment and regimen; Z93.0 Tracheostomy status; Z86.16 Personal history of COVID-19; Z88.1 Allergy status to other antibiotic agents; Z88.8 Allergy status to other drugs, medicaments and biological substances; Y93.89 Activity, other specified; Y92.89 Other specified places as the place of occurrence of the external cause; Y99.8 Other external cause status
CPT/HCPCS: 31720; 36415; 36600; 71045; 73502; 80048; 80053; 81001; 82784; 82805; 82962; 83516; 83735; 83880; 84165; 84484; 85025; 87040; 87086; 87426; 90471; 90686; 93005; 94640; 94760; 94799; 96374; G0378; G0379; J1644; J1815; J2405; J7512; U0003; U0005; 97110-GO; 97110-GP; 97116-GP; 97530-GO; 97530-GP; 97535-GO; 99285-25

== ENCOUNTER 2021-02-13 10:51 | Emergency (ER) | payer MEDICARE ==
[~2021-02-13] VITALS: Ht 182.9 cm; Wt 159.1 kg
[~2021-02-13 10:51] MED LIST changes: +ACET325T21 PO; +BUSP5TAB PO; +CLONAZEPAM1 MG PO; +DULO60CA7 PO; +Diclofenac Sodium TP; +FLUT9.9S NS; +GLUC1KIT IM; +HEPA1000 IJ; +INSU100V35 SQ; +ISOS30TA68 PO; +MAGN400T48 PO; +MELA3TAB43 PO; +METO25TA4 PO; +OXYC15TA3 PO; +QUET100T4 PO; +SENN-37 PO
[2021-02-13 10:55] VITALS: BP 162/123
[2021-02-13] MEDS ORDERED: KETOROLAC 60 MG/2 ML VIAL. IM ONE (11:15)
[2021-02-13] MEDS ORDERED: ORPHENADRINE CITRATE 60 MG/2 ML VIAL. IM ONE (11:15)
--- NOTE | 2021-02-13 11:34 | PHYS DOC ---
Past Medical History Past Medical History: Anemia, Asthma, CAD, CHF, Diabetes-Type II, High Ch olesterol, Hypertension, AL, Other Additional Past Medical Histor: COIVD (NAKIA GUDINO APRN) Past Surgical History: Appendectomy, Knee Replacement, Other Additional Past Surgical Histo: ABD, TRACH 1 DEC 2020 (NAKIA GUDINO APRN) Smoking Status: Never Smoker Alcohol Use: None Drug Use: None (NAKIA GUDINO APRN) General Adult EDM: Chief Complaint: BACK PAIN OR INJURY HPI: HPI: Patient is a 42-year-old male who presents to the emergency department for chronic low back pain. He rates the pain 10 out of 10 that is worse with movement. Patient is from a nursing facility and he was 8 L via trach mask and reports that the nursing staff called EMS for hypoxia but they had the trach mask over his mouth. Patient takes 15 mg of oxycodone for his chronic back pain at home. He reports that the pain worsened this morning after he was sitting in his wheelchair and the wheelchair broke and he fell onto the ground. Patient denies any shortness of breath, difficulty breathing. (NAKIA GUDINO APRN) Review of Systems: Review of Systems: 14 body systems of the review of systems have been reviewed. See HPI for pertinent positive and negative responses, otherwise all other systems are negative, nonpertinent or noncontributory (NAKIA GUDINO APRN) Heart Score: C/O Chest Pain: N/A Risk Factors: Risk Factors: DM, Current or recent (<one month) smoker, HTN, HLP, family history of CAD, obesity. Risk Scores: Score 0 - 3: 2.5% MACE over next 6 weeks - Discharge Home Score 4 - 6: 20.3% MACE over next 6 weeks - Admit for Clinical Observation Score 7 - 10: 72.7% MACE over next 6 weeks - Early Invasive Strategies (NAKIA GUDINO APRN) Current Medications: Current Medications Medications (Trade) Dose Ordered Sig/Linden Start Time Stop Time Status Last Admin Dose Admin Ketorolac Tromethamine (Toradol Im) 60 mg 1X ONCE 02/13/21 11:15 02/13/21 11:16 DC Orphenadrine Citrate (Norflex) 60 mg 1X ONCE 02/13/21 11:15 02/13/21 11:16 DC (NAKIA GUDINO APRN) Allergies: Allergies: Allergies Coded Allergies Type Severity Reaction Last Updated Verified amoxicillin Allergy Intermediate 05/13/19 Yes clavulanic acid Allergy Intermediate 05/13/19 Yes (NAKIA GUDINO APRN) Physical Exam: PE: Constitutional: Well developed, well nourished, no acute distress, non-toxic appearance. [] HENT: Normocephalic, atraumatic, bilateral external ears normal, oropharynx moist, no oral exudates, nose normal. [] Eyes: PERRL, EOMI, conjunctiva normal, no discharge. [] Neck: Normal range of motion, no tenderness, supple, no stridor. [] Cardiovascular:Heart rate regular rhythm, no murmur [] Lungs & Thorax: Bilateral breath sounds clear to auscultation, trach [] Abdomen: Bowel sounds normal, soft, no tenderness, obese, no masses, no pulsatile masses. [] Skin: Warm, dry, no erythema, no rash. [] Back: Lateral lumbar paraspinal tenderness with palpation, normal range of motion Extremities: No tenderness, no cyanosis, no clubbing, ROM intact, no edema. [] Neurologic: Alert and oriented X 3, normal motor function, normal sensory function, no focal deficits noted. [] Psychologic: Affect normal, judgement normal, mood normal. [] (NAKIA GUDINO APRN) Current Patient Data: Vital Signs: Vital Signs Date Time Temp Pulse Resp B/P (MAP) Pulse Ox O2 Delivery O2 Flow Rate FiO2 02/13/21 10:55 98.4 109 18 162/123 (136) 99 Tracheal Collar 8.0 98.4 (NAKIA GUDINO APRN) EKG: EKG: [] (NAKIA GUDINO APRN) Radiology/Procedures: Radiology/Procedures: [] (NAKIA GUDINO APRN) Course & Med Decision Making: Course & Med Decision Making Pertinent Labs and Imaging studies reviewed. (See chart for details) Patient presents to the emergency department for hypoxia from the correction. Hypoxia was due to them not administering oxygen properly and placing history of asthma over his mouth and not his trach. On patient's 8 L he is having no hypoxia and is nonlabored. His vital signs are stable. He denies any shortness of breath. He is reporting low back pain that occurred after he fell through his wheelchair this morning. Patient takes 15 mg of oxycodone for his chronic back pain. Patient's pain treated in the ER. He was offered imaging of his low back which he declined. Patient advised to follow-up with his primary care provider and continue taking medications for his pain as previously prescribed. I discussed with patient all findings and diagnostic testing as well as the need to follow-up with PCP for further evaluation and treatment or return to the ER if any new or worsening symptoms. Strict return precautions were also discussed at length. Patient voiced understanding and agreement with the plan. Patient is hemodynamically stable at the time of disposition. (NAKIA GUDINO APRN) Dragon Disclaimer: Dragon Disclaimer: This electronic medical record was generated, in whole or in part, using a voice recognition dictation system. (NAKIA GUDINO APRN) Departure Departure Impression: Primary Impression: Back pain Qualified Codes: M54.50 - Low back pain, unspecified Disposition: HOME / SELF CARE / HOMELESS Condition: GOOD Referrals: PADDY LINCOLN MD (PCP) Patient Instructions: Back Pain, Adult Additional Instructions: You were seen in the emergency department for low back pain. You were offered imaging of your low back which she declined. You were treated with an anti-inflammatory and a muscle relaxer. Continue taking the oxycodone that you are previously prescribed for your pain. Follow-up with your doctor at the nursing facility. Please ensure that nursing staff is properly administering oxygen with the proper mask and proper placement. Return to the emergency department if you develop shortness of breath, chest pain, worsening of your back pain, loss of bowel or bladder, numbness in groin. EMERGENCY DEPARTMENT GENERAL DISCHARGE INSTRUCTIONS Thank you for coming to [facility] Emergency Department (ED) today and trusting us with you care. We trust that you had a positive experience in our Emergency Department. If you wish to speak to the department management, you may call the Director at [phone]. YOUR FOLLOW UP INSTRUCTIONS ARE FOLLOWS: 1. Do you have a private Doctor? If you do not have a private doctor, please ask for a resource list of physicians or clinics that may be able to assist you with follow up care. 2. The Emergency Physicain has interpreted your x-rays. The X-Ray specialist will also review them. If there is a change in the findings, you will be notified in 48 hours when at all possible. 3. A lab test or culture has been done, your results will be reviewed and you will be notified if you need a change in treatment. ADDITIONAL INSTRUCTIONS AND INFORMATION: 1. Your care today has been supervised by a physician who is specially trained in emergency care. Many problems require more than one evaluation for a complete diagnosis and treatment. We recommend that you schedule your follow up appointment as recommended to ensure complete treatment of you illness or injury. If you are unable to obtain follow up care and continue to have a problem, or if your condition worsens, we recommend that you return to the ED. 2. We are not able to safely determine your condition over the phone nor are we able to give sound medical advice over the phone. For these safety reasons, if you call for medical advice we will ask you to come to the ED for further evaluation. 3. If you have any questions regarding these discharge instructions please call the ED at [phone]. SAFETY INFORMATION: In the interest of safety, wellness, and injury prevention; we encourage you to wear your sealbelt, if you smoke; quite smoking, and we encourage family to use a protective helmet for bicycling and other sporting events that present an increased risk for head injury. IF YOUR SYMPTOMS WORSEN OR NEW SYMPTOMS DEVELOP, OR YOU HAVE CONCERNS ABOUT YOUR CONDITION; OR IF YOUR CONDITION WORSENS WHILE YOU ARE WAITING FOR YOUR FOLLOW UP APPOINTMENT; EITHER CONTACT YOUR PRIMARY CARE DOCTOR, THE PHYSICIAN WHOSE NAME AND NUMBER YOU WERE GIVEN, OR RETURN TO THE ED IMMEDIATELY. Attending Signature I have participated in the care of this patient and I have reviewed and agree with all pertinent clinical information above including history, exam, and recommendations. (MARGARET LANDIS DO) NAKIA GUDINO APRN Feb 13, 2021 11:34 MARGARET LANDIS DO Feb 13, 2021 12:00
== END 2021-02-13 13:45 | disposition home or self-care (01) ==
LOC: ER 10:51
DX: M54.50 Low back pain, unspecified (principal); G89.29 Other chronic pain; J45.909 Unspecified asthma, uncomplicated; I11.0 Hypertensive heart disease with heart failure; I50.9 Heart failure, unspecified; E78.00 Pure hypercholesterolemia, unspecified; I25.10 Atherosclerotic heart disease of native coronary artery without angina pectoris; I25.2 Old myocardial infarction; Z90.89 Acquired absence of other organs; Z88.1 Allergy status to other antibiotic agents; Z88.8 Allergy status to other drugs, medicaments and biological substances
CPT/HCPCS: 31720; 96372; 99284; J1885; J2360